=== PATIENT | female | born 1940 | race Caucasian/White ===

== ENCOUNTER 2017-10-15 14:49 | Emergency (ER) | payer MEDICARE, BC, SELFPAY ==
[2017-10-15 14:59] VITALS: BP 188/83; PULSE 81; RESP 16; TEMP 37; O2SAT 100; BMI 19.1
--- NOTE | 2017-10-15 15:17 | ED.WOUNDLAC ---
HPI - Wound/Laceration General Chief Complaint: Wound/Laceration Stated Complaint: fell, cut chin Time Seen by Provider: 10/15/17 15:04 Source: patient Mode of arrival: ambulatory Limitations: no limitations History of Present Illness HPI narrative: Patient is a 69-year-old female who presents with a chin laceration. She tripped and on her chin. No loss consciousness. She is on Coumadin for AFib. No other injuries. Onset (ago): minute(s) Location: face (Chin) Related Data Home Medications Medication Instructions Recorded Confirmed multivitamin 1 tab PO QDAY #0 06/26/12 10/15/17 cholecalciferol (vitamin D3) 2,000 u PO QDAY #0 06/19/16 10/15/17 [Vitamin D3] calcium citrate 2,000 mg PO QDAY #0 01/17/17 10/15/17 beclomethasone dipropionate [Qvar 1 puff INHALATION DIRECTED 10/15/17 10/15/17 RediHaler] warfarin [Coumadin] 0 dose PO SEE INSTRUCTIONS 10/15/17 10/15/17 Previous Rx's Medication Instructions Recorded metoprolol tartrate 25 mg tablet 12.5 mg PO BID #30 tab 09/23/17 Allergies Allergy/AdvReac Type Severity Reaction Status Date / Time No Known Allergies Allergy Uncoded 09/18/17 10:12 Review of Systems Review of Systems GENERAL: Denies chills,fever HEENT: Denies throat pain RESPIRATORY: Denies dyspnea, cough, wheezing CARDIOVASCULAR: Denies chest pain, palpitations GASTROINTESTINAL: Denies nausea, vomiting MUSCULOSKELETAL: Denies extremity pain, injury SKIN: see HPI NEUROLOGIC: Denies weakness, dizziness, headache, numbness 8 point review of systems is negative except for those stated above and HPI PFSH Medical History Hypertension (Chronic) Osteoarthritis (Chronic) Osteoporosis (Chronic 2015) Atrial fibrillation (Resolved 2013) Lung cancer (Resolved 2006) Ovarian cancer (Resolved 1994) Uterine cancer (Resolved 1994) Surgical History Anesthesia (Resolved) History of breast augmentation (Resolved 1992) History of hip replacement (Resolved 01/2013) History of oophorectomy (Resolved 1994) History of pneumonectomy (Resolved 05/2007) Status post hysterectomy (Resolved 1994) History of bilateral salpingo-oophorectomy (BSO) Family History Father Hypertension Prostate cancer, Onset Age: 70 Grandfather Stroke Grandmother Diabetes mellitus Mother Diabetes mellitus, type II Hypertension Stroke Grandfather No problems noted. Grandmother No problems noted. Social History Smoking Status: Never smoker alcohol intake: never substance use type: does not use Exam Initial Vital Signs Initial Vital Signs: Vital Signs Temperature 98.6 F 10/15/17 14:59 Pulse Rate 81 10/15/17 14:59 Respiratory Rate 16 10/15/17 14:59 Blood Pressure 188/83 H 10/15/17 14:59 Pulse Oximetry 100 10/15/17 14:59 GENERAL: Well-appearing, well-nourished and in no acute distress. CARDIOVASCULAR: peripheral pulses in tact, cap refill <2 sec RESPIRATORY: No respiratory distress, speaks in full sentences without difficulty EXTREMITIES: Normal range of motion, no clubbing or edema. Neurovascularly intact NEUROLOGICAL: Cranial nerves II through XII grossly intact. Normal gait and speech. SKIN: 2 cm chin laceration good skin approximation Procedures Laceration Repair Laceration 1: Site: face Size (cm): 2 Description: linear Depth: simple, single layer Local Anesthetic: lidocaine 1% and bupivacaine 0.5% Amount of anesthesia used (mL): 3 Pre-repair: wound explored, irrigated extensively and deep structures intact Skin layer closed with: nylon Size (cm): 5-0 Number of sutures: 3 Course Vital Signs - 8 hr 10/15/17 14:59 10/15/17 15:29 Temperature 98.6 F 98.1 F Pulse Rate 81 78 Respiratory Rate 16 13 Blood Pressure 188/83 H 170/90 H Pulse Oximetry 100 100 Discharge Plan Departure Patient Disposition: Home, Self-Care Clinical Impression: Laceration of chin Discharge Date/Time: 10/15/17 15:30 Interventions: ED Discharge Assessment Last Done: 10/15/17 15:29 Instructions: DI for Laceration Repair Activity Restrictions/Additional Instructions: 1. Have your suture removed in 5-7 days, you may go to walk-in clinic, return to the ER or call your primary care physician. 2. No soaking in water including dishes, bathtubs, Lakes, swimming pools etc 3. Signs of infection include, but not limited to, increased redness, increased swelling, increased pain, fever and purulent drainage, if the symptoms should arise, you may need an antibiotic and you should have a reevaluation either by your primary care provider or by the emergency department. Prescriptions: No Action multivitamin Tablet 1 tab PO QDAY Qty: 0 RF: 0 cholecalciferol (vitamin D3) [Vitamin D3] 1,000 UNIT tablet 2,000 u PO QDAY Qty: 0 RF: 0 calcium citrate 250 MG tablet 2,000 mg PO QDAY Qty: 0 RF: 0 metoprolol tartrate 25 mg tablet 12.5 mg PO BID Qty: 30 RF: 11 beclomethasone dipropionate [Qvar RediHaler] 40 mcg/actuation HFA aerosol breath activated 1 puff Inhalation DIRECTED RF: 0 warfarin [Coumadin] 2 MG tablet PO SEE INSTRUCTIONS RF: 0 Referrals: Zain iHnton MD [Primary Care Provider] -
[2017-10-15 15:29] VITALS: BP 170/90; PULSE 78; RESP 13; TEMP 36.7; O2SAT 100
== END 2017-10-15 15:30 | disposition home or self-care (01) ==
PROVIDERS: Emergency Provider Emergency Medicine; PCP Family Medicine
DX: S01.81XA Laceration without foreign body of other part of head, initial encounter (principal); W19.XXXA Unspecified fall, initial encounter
CPT/HCPCS: 12001; 12011; 99282; 99283

== ENCOUNTER → 2017-10-22 10:11 | Outpatient (CLI) | payer MEDICARE, BC, SELFPAY ==
--- NOTE | 2017-10-22 | DI.MG.S_ITS ---
BILATERAL DIGITAL SCREENING MAMMOGRAM 3D/2D WITH CAD: 10/22/2017 CLINICAL: Routine screening. Family history of breast cancer. Comparison is made to exams dated: 09/18/2016 mammogram, 08/15/2015 mammogram, and 07/06/2014 mammogram - [facility]. The tissue of both breasts is heterogeneously dense. This may lower the sensitivity of mammography. Current study was also evaluated with a Computer Aided Detection (CAD) system. There is a benign density in the right breast. No significant masses, calcifications, or other findings are seen in either breast. There has been no significant interval change. IMPRESSION: BENIGN There is no mammographic evidence of malignancy. A 1 year screening mammogram is recommended. This exam was interpreted at Station ID: [id number]. NOTE: For mammograms, a report in lay terms will be sent to the patient. Approximately 15% of breast malignancies will not be visualized mammographically. In the management of a palpable breast mass, a negative mammogram must not discourage biopsy of a clinically suspicious lesion. Electronically Signed By: Bry [email or web address]/[email or web address]:10/22/2017 16:23:28 letter sent: Normal Exam ACR BI-RADS Category 2: Benign Finding(s) 3342F
== END ==
PROVIDERS: PCP Family Medicine; Visit Provider Internal Medicine
DX: Z12.31 Encounter for screening mammogram for malignant neoplasm of breast (principal); Z80.3 Family history of malignant neoplasm of breast; M81.0 Age-related osteoporosis without current pathological fracture; Z78.0 Asymptomatic menopausal state; Z90.722 Acquired absence of ovaries, bilateral; Z82.62 Family history of osteoporosis; Z85.118 Personal history of other malignant neoplasm of bronchus and lung; Z87.891 Personal history of nicotine dependence
CPT/HCPCS: 77063; 77067; 77080

== ENCOUNTER → 2018-01-14 11:57 | Outpatient (CLI) | payer MEDICARE, BC, SELFPAY ==
[2018-01-14 12:40] LABS: Alanine Aminotransferase 29 IU/L (9-52); Albumin 3.9 g/dL (3.5-5.0); Albumin Globulin Ratio 1.4 (1.0-2.8); Alkaline Phosphatase 52 U/L (38-126); Aspartate Aminotransferase 42 IU/L (14-36); BUN Creatinine Ratio 34.3 (6-22); Bilirubin Total 0.5 mg/dL (0.2-1.3); Blood Urea Nitrogen 24 mg/dL (7-17); Calcium 8.9 mg/dL (8.4-10.2); Carbon Dioxide 32 mmol/L (22-32); Chloride 100 mmol/L (98-107); Estimated Glomerular Filt Rate > 60.0 mL/min (>60); Globulin 2.8 g/dL (1.7-4.1); Glucose 75 mg/dL (80-110); HEMOLYSIS 26 (0-50); Potassium 4.2 mmol/L (3.4-5.1); Sodium 141 mmol/L (137-145); Total Protein 6.7 g/dL (6.3-8.2)
== END ==
PROVIDERS: PCP Family Medicine; Visit Provider Registered Nurse
DX: R60.0 Localized edema (principal)
CPT/HCPCS: 36415; 80053; 83880

== ENCOUNTER 2018-01-16 14:25 | Oncology outpatient (ONC) | payer MEDICARE, BC, SELFPAY ==
[2018-01-16 15:04] VITALS: BP 119/71; PULSE 57; RESP 18; TEMP 36.1; O2SAT 99
--- NOTE | 2018-01-16 15:28 | P.PNONC_ITS ---
PN -Subjective Interval history: No headache, no cp, no sob, she is using Spiriva for her known COPD. But when walking uphill, she still feels like a challenge, No fever, no chills, no n/v, no diarrhea, and no bleeding. Her weight has been stable. Good appetite. Her mammogram from Oct 2017 was normal. 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 She has been in remission since with no evidence of disease progression. - Additional ROS All systems PM: reviewed and no additional remarkable complaints except as stated Home Medications and Allergies Home Medications Medication Instructions Recorded Confirmed Type multivitamin 1 tab PO QDAY #0 06/26/12 12/30/17 History cholecalciferol (vitamin D3) 2,000 u PO QDAY #0 06/19/16 12/30/17 History [Vitamin D3] calcium citrate 2,000 mg PO QDAY #0 01/17/17 12/30/17 History metoprolol tartrate 25 mg tablet 12.5 mg PO BID #30 tab 09/23/17 12/30/17 Rx alendronate 70 mg tablet 70 mg PO QWEEK #12 tab 10/31/17 12/30/17 Rx warfarin 2 mg tablet 2 mg PO DAILY tab 12/03/17 12/30/17 History warfarin 2 mg tablet 2 mg PO DAILY #30 tab 12/03/17 12/30/17 Rx tiotropium bromide 18 mcg capsule 1 cap INHALATION DAILY 12/30/17 12/30/17 History with inhalation device Allergies Allergy/AdvReac Type Severity Reaction Status Date / Time No Known Allergies Allergy Uncoded 12/30/17 09:11 Exam Vital signs: 3 Temp 96.9 F L 01/16/18 15:04 Pulse 57 L 01/16/18 15:04 Resp 18 01/16/18 15:04 BP 119/71 01/16/18 15:04 Pulse Ox 99 01/16/18 15:04 ECOG 1 - Constitutional positive no acute distress, positive thin, positive cooperative - Routine HEENT Exam Head: Present: normocephalic, atraumatic Eye: Present: EOMI, PERRL, normal accommodation. Absent: conjunctival icterus ENT: Present: mucous membranes moist - Routine Neck Exam Present: supple, full ROM, tracheal deviation. Absent: JVD, lymphadenopathy Comments: slightly to the right - Routine Respiratory Exam Present: Clear to auscultation bilaterally, decreased breath sounds. Absent: wheezes Comments: left lower lung with decreased breathing sound - Routine Cardiovascular Exam Present: RRR, S1, S2, irregular rhythm. Absent: murmur, gallop, rubs, S3 - Routine Abdominal Exam Present: soft, normoactive bowel sounds. Absent: tenderness, distended, organomegaly, mass, hernia - Routine Extremities Exam Present: full ROM. Absent: edema - Routine Back/Spine Exam Back/Spine: Present: full ROM - Routine Neurological Exam Present: alert, oriented X3, CN II-XII intact, moving all extremities, normal tone, normal speech. Absent: sensory deficit, motor deficit - Routine Psychiatric Exam Present: normal affect, normal thought process, cooperative, good insight, good judgment Results - Imaging Additional studies: Procedures Closure of skin and subcutaneous tissue of other sites (05/08/13) Colonoscopy (05/28/13) Injection or infusion of other therapeutic or prophylactic substance (11/09/13) Other endoscopy of small intestine (04/03/10) Total hip replacement (02/02/13) Venous catheterization, not elsewhere classified (03/05/12) Assessment and Plan (1) Endometrial adenocarcinoma Clinically I do not think there is any evidence of disease recurrence or metastasis. I will continue current active surveillance. I did instruct the patient to call us any time when she feels uncomfortable or there are any new signs or symptoms especially for example weight loss, cough or bleeding events. Patient voiced understanding. Plan Return to clinic in 6 months. Repeat CBC, CMP and LDH. (2) Healthcare maintenance Normal mammogram in October of 2017. Plan: Screening mammogram next due Oct 2018.
== END 2018-01-17 12:00 ==
LOC: ONC 14:28
PROVIDERS: PCP Family Medicine; Visit Provider Internal Medicine Hematology & Oncology
DX: Z08 Encounter for follow-up examination after completed treatment for malignant neoplasm (principal); Z85.118 Personal history of other malignant neoplasm of bronchus and lung; J44.9 Chronic obstructive pulmonary disease, unspecified
CPT/HCPCS: 99214

== ENCOUNTER 2018-06-24 10:08 | Emergency (ER) | payer MEDICARE, BC, SELFPAY ==
[2018-06-24 10:09] VITALS: BP 180/98; PULSE 75; RESP 22; TEMP 37.1; O2SAT 96; BMI 14.7
--- NOTE | 2018-06-24 10:26 | DI.US.S_ITS ---
PROCEDURE: US PERIPH VENOUS LOW EXTREM BI INDICATIONS: swelling legs, recent flight, sob TECHNIQUE: Real-time imaging, as well as color and pulse Doppler interrogation, were performed of the deep veins of both legs from the inguinal ligament to the popliteal fossa. COMPARISON: None. FINDINGS: Right: The common femoral, femoral and popliteal veins are normally compressible, and free of intraluminal thrombus. Color and pulse Doppler demonstrate normal phasic intravascular flow. There is normal augmentation response to distal compression maneuver. Left: The common femoral, femoral and popliteal veins are normally compressible, and free of intraluminal thrombus. Color and pulse Doppler demonstrate normal phasic intravascular flow. There is normal augmentation response to distal compression maneuver. What appears to be a Peter's cyst is present posterior to the right knee, measuring 1.0 x 2.4 x 6.3 cm. IMPRESSION: No DVT found over the lower extremities bilaterally. Note is made of what appears to be a right-sided Peter's cyst measuring 1.2 x 2.4 x 6.3 cm behind the right knee. Dictated by: Duncan Saba M.D. on 06/24/2018 at 11:20 Approved by: Duncan Saba M.D. on 06/24/2018 at 11:21
--- NOTE | 2018-06-24 10:27 | DI.RAD.S_ITS ---
PROCEDURE: XR CHEST 2V INDICATIONS: Short of breath, R lung removed for ca remote, cough TECHNIQUE: 2 views of the chest were acquired. COMPARISON: [facility], , CHEST 2 VIEW, 02/28/2015, 14:01. [facility], CHEST 2 VIEW, 06/19/2016, 10:22. [facility], , CHEST 2 VIEW, 11/26/2016, 13:18. FINDINGS: Surgical changes and devices: Right pneumonectomy changes are seen. Right axillary clips are seen. Lungs and pleura: Right pneumonectomy changes are seen. The left lung appears clear. Mediastinum: There is shift of the mediastinum to the right. Bones and chest wall: No suspicious bony abnormalities. S-shaped scoliotic curvature is seen. Age-appropriate bony degenerative changes are seen. Soft tissues appear unremarkable. IMPRESSION: Right pneumonectomy changes. The left lung appears clear. S-shaped scoliosis. Dictated by: Javed Person M.D. on 06/24/2018 at 9:47 Approved by: Javed Person M.D. on 06/24/2018 at 9:48
[2018-06-24 10:38] LABS: Add Manual Diff / Slide Review NO; Basophils Absolute Auto 0 /uL (0-100); Basophils Percent Auto 0.6 % (0-2); Eosinophils Absolute Auto 0 /uL (0-450); Eosinophils Percent Auto 0.8 % (2-4); Hematocrit 30.9 % (36-46); Hemoglobin 10.1 g/dL (12.0-16.0); Lymphocytes Absolute Auto 1100 /uL (1100-4500); Lymphocytes Percent Auto 23.9 % (25-40); Mean Corpuscular HGB Conc 32.6 % (30-36); Mean Corpuscular Hemoglobin 28.2 PG (26-34); Mean Corpuscular Volume 86.3 fL (80-100); Monocytes Absolute Auto 800 /uL (0-900); Monocytes Percent Auto 17.9 % (3-14); Neutrophils Absolute Auto 2700 /uL (1500-7000); Neutrophils Percent Auto 56.8 % (50-75); Platelet Count 253 X10^3/uL (150-400); Prothrombin Time 23.7 SECONDS (10.1-12.7); Red Blood Cell Count 3.58 X10^6/uL (4.0-5.2); Red Cell Distribution Width 15.4 % (11.6-14.8); White Blood Cell Count 4.7 X10^3/uL (4.5-11.0)
[2018-06-24 10:41] LABS: PTT Partial Thromboplastin Tim 42 SECONDS (26.4-36.2)
[2018-06-24 10:42] LABS: Creatine Kinase 72 U/L (30-135); Magnesium 1.9 mg/dL (1.6-2.3)
--- NOTE | 2018-06-24 10:42 | ED_ITS ---
HPI - SOB/Dyspnea General Chief Complaint: Shortness of Breath/Dyspnea Stated Complaint: sob, sent walk in clinic Time Seen by Provider: 06/24/18 10:08 Source: patient Mode of arrival: ambulatory Limitations: no limitations History of Present Illness This is a 77-year-old female comes to the emergency department with complaint of shortness of breath. Patient states shortness of breath started on Saturday. She states that she has had a little bit of cold congestion like symptoms in her chest. She felt like there is phlegm but she is not coughing anything out. She states that her shortness of breath is when she exerts herself or tries to walk up stairs. Patient denies any chest pain, pressure or tightness. She has not had any wheezing. She has not had any fevers. She has been sort of permanently cold but not really having chills. She states that she did fly back from [place] on and started really noticing symptoms on Saturday. She has also been very tired and thought it was just jet lag. She also noticed during her trip in that she had some bright red blood including some clots for a day and a half and then it stopped she has not noticed any more blood or black stool she has not been typically lightheaded but she was dizzy the last hour of her flight on returning. She has not had any syncope. She has had some swelling in her lower extremities but that has been improving since she landed. She has always got slightly left greater than right swelling in her lower extremities after she had a hip replacement. 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 She also has had a hysterectomy secondary to endometrial cancer many years ago. She did smoke for 20 years but has not been smoking for about 40. She denies any nausea, no vomiting no diarrhea or constipation. She denies any urinary symptoms. Related Data Home Medications Medication Instructions Recorded Confirmed cholecalciferol (vitamin D3) 2,000 units PO DAILY #0 06/19/16 06/24/18 [Vitamin D3] warfarin 2 mg tablet 2 mg PO SUMOWETHFRSA tab 12/03/17 06/24/18 alendronate [Fosamax] 70 mg PO MATA 06/24/18 06/24/18 calcium carbonate-vitamin D3 2 tab PO DAILY 06/24/18 06/24/18 [Calcium 600 + D(3)] multivitamin with minerals 1 tab PO DAILY 06/24/18 06/24/18 warfarin [Coumadin] 1 mg PO TU 06/24/18 06/24/18 Previous Rx's Medication Instructions Recorded metoprolol tartrate 25 mg tablet 12.5 mg PO BID #30 tab 09/23/17 tiotropium bromide 18 mcg capsule 1 cap INHALATION DAILY #30 06/05/18 with inhalation device inhalation Allergies Allergy/AdvReac Type Severity Reaction Status Date / Time No Known Drug Allergies Allergy Verified 06/24/18 11:22 Review of Systems Review of Systems ROS Unobtainable: All systems reviewed & are unremarkable except as noted in HPI and below Constitutional Denies chills, Reports fatigue, Denies fever(s), Denies lethargy and Denies weakness ENT Ears, Nose, Mouth, and Throat: Denies nasal congestion Cardiovascular Denies chest pain, Denies chest pain at rest, Denies chest pain with activity, Denies diaphoresis, Denies syncope, Denies rapid heart rate, Denies irregular heart rhythm, Reports leg edema (Bilateral), Reports lightheadedness (Resolved), Denies radiating jaw, neck or arm pain, Denies palpitations, Denies dyspnea, Reports dyspnea on exertion and Denies orthopnea Respiratory Denies change in phlegm color, Reports chest congestion, Reports cough, Denies hemoptysis, Denies excessive phlegm production, Denies pain on inspiration, Denies pain with cough, Denies dyspnea, Reports dyspnea on exertion and Denies wheezing Gastrointestinal Gastrointestinal: Denies abdominal pain, Denies melena, Reports hematochezia (For a day and a half while in [place].), Denies change in bowel habits, Denies constipation, Denies diarrhea, Denies nausea and Denies vomiting Genitourinary Denies hematuria, Denies urinary frequency, Denies dysuria, Denies flank pain and Denies urinary urgency Integumentary/Breasts Denies unusual bruising Neurologic Denies syncope and Denies weakness Endocrine Reports fatigue and Denies palpitations Allergic/Immunologic Denies wheezing [facility] Medical History Hypertension (Chronic) Osteoarthritis (Chronic) Osteoporosis (Chronic 2015) Atrial fibrillation (Resolved 2013) Lung cancer (Resolved 2006) Ovarian cancer (Resolved 1994) Uterine cancer (Resolved 1994) Surgical History Anesthesia (Resolved) History of breast augmentation (Resolved 1992) History of hip replacement (Resolved 01/2013) History of oophorectomy (Resolved 1994) History of pneumonectomy (Resolved 05/2007) Status post hysterectomy (Resolved 1994) History of bilateral salpingo-oophorectomy (BSO) Family History Father Hypertension Prostate cancer Grandfather Stroke Grandmother Diabetes mellitus Mother Diabetes mellitus, type II Hypertension Stroke Grandfather No problems noted. Grandmother No problems noted. Social History (Updated 10/15/17 @ 15:19 by Marilyn Amaro DO) marital status: unmarried,single household members: none lives independently: Yes pets and animals: Yes education level: college occupational status: other Smoking Status: Former smoker alcohol intake: never substance use type: does not use Family History Father Hypertension Prostate cancer Grandfather Stroke Grandmother Diabetes mellitus Mother Diabetes mellitus, type II Hypertension Stroke Grandfather No problems noted. Grandmother No problems noted. Social History (System 06/24/18 @ 11:22 by Gini Calix) marital status: unmarried,single household members: none lives independently: Yes pets and animals: Yes education level: college occupational status: other Smoking Status: Former smoker alcohol intake: never substance use type: does not use Exam Narrative Exam Narrative: GENERAL: Alert and oriented x three, thin, well-appearing elderly female in mild distress. HEENT: Head normocephalic, atraumatic, EOMI, pupils reactive, face symmetric, moist mucous membranes NECK: Supple, full range of motion CARDIOVASCULAR: Irregularly irregular without murmurs, rubs or gallops. No JVD. Trace edema bilateral lower extremities. left lower extremity is slightly increased circumference than the right. RESPIRATORY: Breath sounds present on left, no wheezes rales or rhonchi. No tachypnea, speaks in full sentences. ABDOMEN: Soft, nontender. nondistended. Normoactive bowel sounds all 4 quadrants. No guarding or rebound, rigidity, no mass. On digital rectal exam no large mass. There is no bright red blood, patient does have some thin liquidy brown stool, stool occult was negative : No CVA tenderness EXTREMITIES: Normal range of motion. Neurovascularly intact. normal gait. NEUROLOGICAL: Cranial nerves II through XII grossly intact. Moving all extremities SKIN: Warm, dry, no petechiae, no rashes or lesions. Initial Vital Signs Initial Vital Signs: Vital Signs Temperature 98.8 F 06/24/18 10:09 Pulse Rate 75 06/24/18 10:09 Respiratory Rate 22 06/24/18 10:09 Blood Pressure 180/98 H 06/24/18 10:09 Pulse Oximetry 96 06/24/18 10:09 Course Orders Ordered: ED Orders 06/24/18 10:11 EKG-12 Lead Routine 06/24/18 10:20 B Type Natriuretic Peptide Stat Complete Blood Count AUTO DIFF Stat Comprehensive Metabolic Panel Stat Magnesium Stat Partial Thromboplastin Time Stat Prothrombin Time INR Stat Troponin & CK Cardiac Panel Stat 06/24/18 10:26 Consult to Respiratory Therapy Evaluate & Treat US periph venous low extrem bi Stat 06/24/18 10:27 XR chest 2V Stat 06/24/18 10:45 Lactate (Lactic Acid) Stat Type and Screen Stat Discontinued Medications Albuterol/Ipratropium (Duoneb) 3 ml INH Q1H PRN PRN Reason: Shortness Of Breath Last Admin: 06/24/18 11:11 Dose: 3 ml Pantoprazole Sodium (Protonix) 40 mg IV NOW ONE Stop: 06/24/18 11:20 Vital Signs - 8 hr 06/24/18 10:09 06/24/18 11:17 06/24/18 11:26 Temperature 98.8 F Pulse Rate 75 96 H 78 Respiratory Rate 22 18 16 Blood Pressure 180/98 H Blood Pressure [Left Arm] 180/86 H Pulse Oximetry 96 97 98 06/24/18 12:07 Temperature Pulse Rate 76 Respiratory Rate 13 Blood Pressure 149/90 H Blood Pressure [Left Arm] Pulse Oximetry 98 MDM - SOB/Dyspnea Lab Data Attestation: I reviewed the patient's lab results. Result diagrams: 06/24/18 10:20 06/24/18 10:20 Lab Results 06/24/18 06/24/18 06/24/18 Range/Units 10:20 10:20 10:20 WBC 4.7 (4.5-11.0) X10^3/uL RBC 3.58 L (4.0-5.2) X10^6/uL Hgb 10.1 L (12.0-16.0) g/dL Hct 30.9 L (36-46) % MCV 86.3 (80-100) fL MCH 28.2 (26-34) PG MCHC 32.6 (30-36) % RDW 15.4 H (11.6-14.8) % Plt Count 253 (150-400) X10^3/uL Neut % (Auto) 56.8 (50-75) % Lymph % (Auto) 23.9 L (25-40) % [place] % (Auto) 17.9 H (3-14) % Eos % (Auto) 0.8 L (2-4) % Baso % (Auto) 0.6 (0-2) % Neut # (Auto) 2700 (7441-5497) /uL Lymph # (Auto) 1100 (8081-2768) /uL [place] # (Auto) 800 (0-900) /uL Eos # (Auto) 0 (0-450) /uL Baso # (Auto) 0 (0-100) /uL PT 23.7 H (10.1-12.7) SECONDS INR 2.0 H (0.9-1.3) APTT 42 H (26.4-36.2) SECONDS Sodium (137-145) mmol/L Potassium (3.4-5.1) mmol/L Chloride (98-107) mmol/L Carbon Dioxide (22-32) mmol/L BUN (7-17) mg/dL Creatinine (0.52-1.04) mg/dL Estimated GFR (>60) mL/min BUN/Creatinine Ratio (6-22) Glucose (80-110) mg/dL Lactate (0.7-2.1) mmol/L Calcium (8.4-10.2) mg/dL Magnesium 1.9 (1.6-2.3) mg/dL Total Bilirubin (0.2-1.3) mg/dL AST (14-36) IU/L ALT (9-52) IU/L Alkaline Phosphatase (38-126) U/L Total Creatine Kinase 72 (30-135) U/L CK-MB (CK-2) TNP CK-MB (CK-2) Rel Index TNP Troponin I < 0.012 (0.01-0.034) ng/mL B-Natriuretic Peptide 356 H (<100) Total Protein (6.3-8.2) g/dL Albumin (3.5-5.0) g/dL Globulin (1.7-4.1) g/dL Albumin/Globulin Ratio (1.0-2.8) Blood Type Antibody Screen 06/24/18 06/24/18 06/24/18 Range/Units 10:20 10:45 10:45 WBC (4.5-11.0) X10^3/uL RBC (4.0-5.2) X10^6/uL Hgb (12.0-16.0) g/dL Hct (36-46) % MCV (80-100) fL MCH (26-34) PG MCHC (30-36) % RDW (11.6-14.8) % Plt Count (150-400) X10^3/uL Neut % (Auto) (50-75) % Lymph % (Auto) (25-40) % Columbia % (Auto) (3-14) % Eos % (Auto) (2-4) % Baso % (Auto) (0-2) % Neut # (Auto) (3379-1806) /uL Lymph # (Auto) (2829-1525) /uL Columbia # (Auto) (0-900) /uL Eos # (Auto) (0-450) /uL Baso # (Auto) (0-100) /uL PT (10.1-12.7) SECONDS INR (0.9-1.3) APTT (26.4-36.2) SECONDS Sodium 136 L (137-145) mmol/L Potassium 3.9 (3.4-5.1) mmol/L Chloride 100 (98-107) mmol/L Carbon Dioxide 28 (22-32) mmol/L BUN 25 H (7-17) mg/dL Creatinine 0.70 (0.52-1.04) mg/dL Estimated GFR > 60.0 (>60) mL/min BUN/Creatinine Ratio 35.7 H (6-22) Glucose 94 (80-110) mg/dL Lactate 0.9 (0.7-2.1) mmol/L Calcium 9.5 (8.4-10.2) mg/dL Magnesium (1.6-2.3) mg/dL Total Bilirubin 0.3 (0.2-1.3) mg/dL AST 34 (14-36) IU/L ALT 37 (9-52) IU/L Alkaline Phosphatase 59 (38-126) U/L Total Creatine Kinase (30-135) U/L CK-MB (CK-2) CK-MB (CK-2) Rel Index Troponin I (0.01-0.034) ng/mL B-Natriuretic Peptide (<100) Total Protein 6.5 (6.3-8.2) g/dL Albumin 3.8 (3.5-5.0) g/dL Globulin 2.7 (1.7-4.1) g/dL Albumin/Globulin Ratio 1.4 (1.0-2.8) Blood Type A Negative Antibody Screen Negative Imaging Data Chest x-ray: Radiologist's impression: Cecille Toledo 77 F 1940 [place] [address] XRay Report Signed Patient: Cecille Toledo AMR#: [id number] : 1940Acct:[id number] Age/Sex: 77 / FDate of Service: 06/24/18 Loc: ED Accession Number: [id number] Procedure: XR chest 2V Ordering Provider: Jayla Fraser D.O. PROCEDURE: XR CHEST 2V INDICATIONS: Short of breath, R lung removed for ca remote, cough TECHNIQUE: 2 views of the chest were acquired. COMPARISON: [facility], CHEST 2 VIEW, 02/28/2015, 14:01. [facility], CHEST 2 VIEW, 06/19/2016, 10:22. [facility], CHEST 2 VIEW, 11/26/2016, 13:18. FINDINGS: Surgical changes and devices: Right pneumonectomy changes are seen. Right axillary clips are seen. Lungs and pleura: Right pneumonectomy changes are seen. The left lung appears clear. Mediastinum: There is shift of the mediastinum to the right. Bones and chest wall: No suspicious bony abnormalities. S-shaped scoliotic curvature is seen. Age-appropriate bony degenerative changes are seen. Soft tissues appear unremarkable. IMPRESSION: Right pneumonectomy changes. The left lung appears clear. S-shaped scoliosis. Dictated by: Javed Person M.D. on 06/24/2018 at 9:47 Approved by: Javed Person M.D. on 06/24/2018 at 9:4 ECG Data Attestation: I personally reviewed and interpreted this ECG as follows: Interpretation: AFib with a rate of 80 QRS of 98 and QTC of 418. No ST changes appreciated. left axis deviation. Patient has likely artifact in V3 as changes are not consistent throughout the single lead. Patient has prior EKG from 06/05/2018 on that 1 patient appears to be in a sinus tach nonspecific ST baig es when compared. MDM Narrative Medical decision making narrative: I discussed with patient she has multiple potential causes for her shortness of breath including possible anemia, pulmonary embolism, infection, COPD exacerbation or cardiac cause. Patient's EKG shows atrial fibrillation which is known. Dopplers are negative. Chest x-ray does not show any acute changes she has right pneumonectomy changes. Patient's hemoglobin is 10 today which is down from 12 in 2018. BNP is slightly elevated at 356, troponin is normal. Patient does not any crackles or changes on chest x-ray that support a congestive heart rate earlier, suspect possibly more related to symptomatic anemia. Patient chances of a pulmonary embolism her lower with an INR of 2.0 and negative Dopplers. I do not have CT capabilities available at this time and with potential for GI bleeding would not put her on blood thinners. Patient's primary care physician is Dr. Puckett. Spoke with Dr. Patricia. She is happy to repeat the patient's hemoglobin. Patient has slight dyspnea with exertion but otherwise is not having a lot of symptoms and she does not wish to be in the hospital. We did offer to keep patient is observation especially as I can do a CT scan to rule out pulmonary embolism. Her risk is a little bit lower but the fact that she is anticoagulated and negative Dopplers but she is higher risk secondary to her recent flight. Discussed risks versus benefits with the patient and she is comfortable at this time waiting and following up as outpatient. We did discuss she should return for any worsening symptoms as well as if she is having any recurrent GI bleeding. Discharge Plan Departure Patient Disposition: Home Clinical Impression: Dyspnea, Anemia Discharge Date/Time: 06/24/18 12:08 Interventions: ED Discharge Assessment Last Done: 06/24/18 12:07 Instructions: DI for Shortness of Breath Activity Restrictions/Additional Instructions: Follow-up on Saturday to get your CBC/blood count redrawn at the outpatient lab. Dr. Patricia is ordering your lab for you. Continue home medications as prescribed. Return to the emergency department for any new or worsening symptoms including increasing shortness of breath, passing out, chest pain or tightness or pressure, recurrent rectal bleeding, persistent vomiting, abdominal pain or other new or concerning symptoms. Prescriptions: No Action cholecalciferol (vitamin D3) [Vitamin D3] 1,000 UNIT tablet 2,000 units PO DAILY Qty: 0 RF: 0 metoprolol tartrate 25 mg tablet 12.5 mg PO BID Qty: 30 RF: 11 Spiriva with HandiHaler 18 mcg capsule, w/inhalation device 1 cap INHALATION DAILY Qty: 30 RF: 0 warfarin [Coumadin] 2 mg tablet 2 mg PO SUMOWETHFR RF: 0 warfarin [Coumadin] 2 mg tablet 1 mg PO TU RF: 0 calcium carbonate-vitamin D3 [Calcium 600 + D(3)] 600 mg(1,500mg) -200 unit Tablet 2 tab PO DAILY RF: 0 multivitamin with minerals Tablet 1 tab PO DAILY RF: 0 alendronate [Fosamax] 70 mg tablet 70 mg PO MATA RF: 0 Referrals: Rosio Puckett MD [Primary Care Provider] -
[2018-06-24 10:43] LABS: Alanine Aminotransferase 37 IU/L (9-52); Albumin 3.8 g/dL (3.5-5.0); Albumin Globulin Ratio 1.4 (1.0-2.8); Alkaline Phosphatase 59 U/L (38-126); Aspartate Aminotransferase 34 IU/L (14-36); BUN Creatinine Ratio 35.7 (6-22); Bilirubin Total 0.3 mg/dL (0.2-1.3); Blood Urea Nitrogen 25 mg/dL (7-17); Calcium 9.5 mg/dL (8.4-10.2); Carbon Dioxide 28 mmol/L (22-32); Chloride 100 mmol/L (98-107); Estimated Glomerular Filt Rate > 60.0 mL/min (>60); Globulin 2.7 g/dL (1.7-4.1); Glucose 94 mg/dL (80-110); HEMOLYSIS < 15 (0-50); Potassium 3.9 mmol/L (3.4-5.1); Sodium 136 mmol/L (137-145); Total Protein 6.5 g/dL (6.3-8.2)
[2018-06-24 10:54] LABS: B Type Natriuretic Peptide 356 (<100)
[2018-06-24 10:55] LABS: Troponin I < 0.012 ng/mL (0.01-0.034)
[2018-06-24 11:11] LABS: Lactate (Lactic Acid) 0.9 mmol/L (0.7-2.1)
[2018-06-24] MEDS: ALBUTEROL/IPRATROPIUM 3 ML AMPUL INH (11:11)
[2018-06-24 11:17] VITALS: PULSE 96; RESP 18; O2SAT 97
[2018-06-24 11:26] VITALS: BP 180/86; PULSE 78; RESP 16; O2SAT 98
[2018-06-24 12:07] VITALS: BP 149/90; PULSE 76; RESP 13; O2SAT 98
== END 2018-06-24 12:08 | disposition home or self-care (01) ==
PROVIDERS: Emergency Provider Emergency Medicine; PCP Family Medicine
DX: R06.00 Dyspnea, unspecified (principal); D64.9 Anemia, unspecified; M79.89 Other specified soft tissue disorders; R42 Dizziness and giddiness; R53.83 Other fatigue
CPT/HCPCS: 36415; 36591; 71046; 80053; 82550; 83605; 83735; 83880; 84484; 85025; 85610; 85730; 86850; 86900; 86901; 93005; 93041; 93970; 94640; 99283; 99285

== ENCOUNTER 2018-06-25 16:14 | Inpatient (IN) | payer MEDICARE, BC, SELFPAY ==
[2018-06-25] VITALS (19 sets, daily range): BP systolic 118–180; BP diastolic 65–96; PULSE 83–188; RESP 17–28; TEMP 36.1–37.6; O2SAT 93–100; BMI 19.1
--- NOTE | 2018-06-25 16:34 | ED.SOB ---
HPI - SOB/Dyspnea General Chief Complaint: Shortness of Breath/Dyspnea Stated Complaint: SHORTNESS OF BREATH Time Seen by Provider: 06/25/18 16:30 Source: patient Mode of arrival: ambulatory Limitations: no limitations History of Present Illness Patient is a 69-year-old female who presents with increasing shortness of breath worse today. She has a history of right pneumonectomy COPD and paroxysmal atrial fibrillation. She was seen evaluated here yesterday and had a thorough workup, minus CT for PE which was unavailable. She has had increasing dyspnea with exertion for the last 5 days. Today her chest pain is significantly worsened she is having difficulty talking. Denies fever or chills. She does have bilateral lower extremity swelling on but states the left is always more than the right versus left. They appear Equal to me. No productive cough or fevers. Patient apparently did have some rectal bleeding while on vacation. MD Complaint: shortness of breath Onset (ago): day(s) (5) Context: recent illness, occurred during exertion and recent travel Consistency/Duration: constant Relieving factors: nothing Exacerbating factors: movement and talking Known history of: COPD Related Data Home oxygen amount: none Home Medications Medication Instructions Recorded Confirmed cholecalciferol (vitamin D3) 2,000 units PO DAILY #0 06/19/16 06/25/18 [Vitamin D3] warfarin 2 mg tablet 2 mg PO SUMOWETHFRSA tab 12/03/17 06/25/18 alendronate [Fosamax] 70 mg PO MATA 06/24/18 06/25/18 calcium carbonate-vitamin D3 2 tab PO DAILY 06/24/18 06/25/18 [Calcium 600 + D(3)] multivitamin with minerals 1 tab PO DAILY 06/24/18 06/25/18 warfarin [Coumadin] 1 mg PO TU 06/24/18 06/25/18 Previous Rx's Medication Instructions Recorded metoprolol tartrate 25 mg tablet 12.5 mg PO BID #30 tab 09/23/17 tiotropium bromide 18 mcg capsule 1 cap INHALATION DAILY #30 06/05/18 with inhalation device inhalation Allergies Allergy/AdvReac Type Severity Reaction Status Date / Time No Known Drug Allergies Allergy Verified 06/24/18 11:22 Review of Systems Review of Systems ROS Unobtainable: All systems reviewed & are unremarkable except as noted in HPI and below Constitutional Denies chills, Denies fever(s), Denies lethargy and Denies weakness ENT Ears, Nose, Mouth, and Throat: Denies change in voice, Denies neck pain and Denies sore throat Cardiovascular Denies chest pain, Reports pedal edema, Denies irregular heart rhythm, Denies lightheadedness, Denies palpitations, Reports dyspnea on exertion and Denies orthopnea Respiratory Reports as per HPI, Reports chest congestion and Reports dyspnea on exertion Gastrointestinal Gastrointestinal: Reports as per HPI Comments: Bloody diarrhea now resolved Genitourinary Denies hematuria, Denies flank pain, Denies urinary incontinence and Denies urinary urgency Musculoskeletal Denies neck pain Integumentary/Breasts Denies pruritus, Denies erythema, Denies rash and Denies wounds Neurologic Denies confusion and Denies weakness Psychiatric Denies anxiety, Denies confusion, Denies depression, Denies homicidal ideation and Denies suicidal ideation Endocrine Denies palpitations [facility] Medical History Hypertension (Chronic) Osteoarthritis (Chronic) Osteoporosis (Chronic 2015) Atrial fibrillation (Resolved 2013) Lung cancer (Resolved 2006) Ovarian cancer (Resolved 1994) Uterine cancer (Resolved 1994) Surgical History Anesthesia (Resolved) History of breast augmentation (Resolved 1992) History of hip replacement (Resolved 01/2013) History of oophorectomy (Resolved 1994) History of pneumonectomy (Resolved 05/2007) Status post hysterectomy (Resolved 1994) History of bilateral salpingo-oophorectomy (BSO) Family History (System 06/24/18 @ 11:22 by Gini Calix) Father Hypertension Prostate cancer Grandfather Stroke Grandmother Diabetes mellitus Mother Diabetes mellitus, type II Hypertension Stroke Grandfather No problems noted. Grandmother No problems noted. Social History (System 06/24/18 @ 11:22 by Gini Calix) marital status: unmarried,single household members: none lives independently: Yes pets and animals: Yes education level: college occupational status: other Smoking Status: Former smoker alcohol intake: never substance use type: does not use Family History Father Hypertension Prostate cancer Grandfather Stroke Grandmother Diabetes mellitus Mother Diabetes mellitus, type II Hypertension Stroke Grandfather No problems noted. Grandmother No problems noted. Social History marital status: unmarried,single household members: none lives independently: Yes pets and animals: Yes education level: college occupational status: other Smoking Status: Former smoker alcohol intake: never substance use type: does not use Exam Initial Vital Signs Initial Vital Signs: Vital Signs Temperature 97.0 F L 06/25/18 16:15 Pulse Rate 98 H 06/25/18 16:15 Respiratory Rate 26 H 06/25/18 16:15 Blood Pressure 152/68 H 06/25/18 16:15 Pulse Oximetry 98 06/25/18 16:15 GENERAL: Frail alert pleasant elderly female in moderate respiratory distress HEENT: Head atraumatic,EOMI, pupils reactive, no JVD CARDIOVASCULAR: Regular rate and rhythm without murmurs, rubs or gallops. RESPIRATORY: Coarse breath sounds throughout decreased on the right side, unable to speak in full sentences ABDOMEN: Soft, nontender. Normoactive bowel sounds all 4 quadrants. No guarding or rebound. EXTREMITIES: Normal range of motion, no clubbing or edema. Neurovascularly intact NEUROLOGICAL: Alert and oriented x4.Normal gait and speech. SKIN: Warm, dry, no laceration, no petechiae, no rashes or lesions. Course Orders Ordered: ED Orders 06/25/18 16:21 Consult to Respiratory Therapy Evaluate & Treat 06/25/18 16:38 Consult to Respiratory Therapy Evaluate & Treat XR chest 1V Stat EKG-12 Lead Stat 06/25/18 16:45 B Type Natriuretic Peptide Stat Complete Blood Count AUTO DIFF Stat Comprehensive Metabolic Panel Stat Magnesium Stat Procalcitonin Stat Troponin & CK Cardiac Panel Stat 06/25/18 16:48 Prothrombin Time INR Stat 06/25/18 17:15 Lactate (Lactic Acid) Stat 06/25/18 17:20 Arterial Blood Gas Stat 06/25/18 17:27 EKG-12 Lead Stat 06/25/18 17:40 Blood Culture Stat 06/25/18 17:45 Urinalysis and Microscopic Stat Urine Culture Stat Albuterol (Ventolin) 2.5 mg INH NOW PRN PRN Reason: Shortness Of Breath Or Wheezing Last Admin: 06/25/18 16:37 Dose: 2.5 mg Admin: 06/25/18 16:36 Dose: 2.5 mg Discontinued Medications Adenosine (Adenocard) 6 mg IV NOW ONE Stop: 06/25/18 17:28 Last Admin: 06/25/18 17:07 Dose: 6 mg Adenosine (Adenocard) 12 mg IV NOW ONE Stop: 06/25/18 17:29 Last Admin: 06/25/18 17:09 Dose: 12 mg Albuterol/Ipratropium (Duoneb) 3 ml INH NOW ONE Stop: 06/25/18 16:35 Last Admin: 06/25/18 16:36 Dose: 3 ml Albuterol/Ipratropium (Duoneb) 3 ml INH NOW ONE Stop: 06/25/18 16:38 Last Admin: 06/25/18 19:33 Dose: Not Given Furosemide (Lasix) 40 mg IV NOW ONE Stop: 06/25/18 17:28 Last Admin: 06/25/18 17:17 Dose: 40 mg Ceftriaxone Sodium/Dextrose (Rocephin) 1 gm in 50 mls @ 100 mls/hr IV NOW ONE Stop: 06/25/18 18:46 Last Infusion: 06/25/18 19:12 Dose: 0 mls/hr Admin: 06/25/18 18:36 Dose: 100 mls/hr Methylprednisolone (Solu-Medrol 125 Mg Vial) 80 mg IV NOW ONE Stop: 06/25/18 18:48 Last Admin: 06/25/18 19:15 Dose: 80 mg Metoprolol Tartrate (Lopressor) 5 mg IV NOW ONE Stop: 06/25/18 17:28 Last Admin: 06/25/18 17:15 Dose: 5 mg Metoprolol Tartrate (Lopressor) 25 mg PO NOW ONE Stop: 06/25/18 18:19 Last Admin: 06/25/18 18:36 Dose: 25 mg Vital Signs - 8 hr 06/25/18 16:15 06/25/18 16:32 06/25/18 16:37 Temperature 97.0 F L Pulse Rate 98 H 90 98 H Respiratory Rate 26 H Blood Pressure 152/68 H Blood Pressure [Right Arm] 180/96 H Pulse Oximetry 98 100 96 06/25/18 16:39 06/25/18 17:00 06/25/18 17:05 Temperature Pulse Rate 98 H 188 H 181 H Respiratory Rate 28 H 27 H Blood Pressure Blood Pressure [Right Arm] 141/81 H 153/82 H Pulse Oximetry 96 06/25/18 17:10 06/25/18 17:15 06/25/18 17:20 Temperature Pulse Rate 129 H 108 H 104 H Respiratory Rate 28 H 23 24 Blood Pressure Blood Pressure [Right Arm] 135/80 143/87 H 139/82 Pulse Oximetry 06/25/18 17:25 06/25/18 17:30 06/25/18 17:35 Temperature Pulse Rate 107 H 110 H 112 H Respiratory Rate 25 H 22 25 H Blood Pressure Blood Pressure [Right Arm] 125/80 145/67 H Pulse Oximetry 98 98 06/25/18 17:40 06/25/18 17:50 06/25/18 18:00 Temperature Pulse Rate 111 H 106 H 121 H Respiratory Rate 22 17 27 H Blood Pressure Blood Pressure [Right Arm] 125/80 120/71 121/65 Pulse Oximetry 97 96 96 06/25/18 19:00 06/25/18 19:30 Temperature Pulse Rate 104 H 100 H Respiratory Rate 24 23 Blood Pressure Blood Pressure [Right Arm] 126/71 118/71 Pulse Oximetry MDM - SOB/Dyspnea Lab Data Attestation: I reviewed the patient's lab results. Result diagrams: 06/25/18 16:45 06/25/18 16:45 Lab Results 06/25/18 06/25/18 06/25/18 Range/Units 16:45 16:45 16:45 WBC 5.6 (4.5-11.0) X10^3/uL RBC 3.73 L (4.0-5.2) X10^6/uL Hgb 10.4 L (12.0-16.0) g/dL Hct 32.4 L (36-46) % MCV 86.9 (80-100) fL MCH 27.8 (26-34) PG MCHC 32.0 (30-36) % RDW 15.2 H (11.6-14.8) % Plt Count 261 (150-400) X10^3/uL Neut % (Auto) 51.7 (50-75) % Lymph % (Auto) 33.0 (25-40) % Nelson % (Auto) 12.4 (3-14) % Eos % (Auto) 2.3 (2-4) % Baso % (Auto) 0.6 (0-2) % Neut # (Auto) 2900 (9617-8234) /uL Lymph # (Auto) 1800 (8162-5322) /uL Nelson # (Auto) 700 (0-900) /uL Eos # (Auto) 100 (0-450) /uL Baso # (Auto) 0 (0-100) /uL PT (10.1-12.7) SECONDS INR (0.9-1.3) ABG pH (7.35-7.45) ABG pCO2 (35-45) mmHg ABG pO2 (80-100) mmHg ABG HCO3 (22-26) mmol/L ABG Total CO2 (21-31) mmol/L ABG O2 Saturation (95-100) % ABG Base Excess (-2-2) mmol/L FiO2 Sodium 136 L (137-145) mmol/L Potassium 3.7 (3.4-5.1) mmol/L Chloride 99 (98-107) mmol/L Carbon Dioxide 30 (22-32) mmol/L BUN 21 H (7-17) mg/dL Creatinine 0.90 (0.52-1.04) mg/dL Estimated GFR > 60.0 (>60) mL/min BUN/Creatinine Ratio 23.3 H (6-22) Glucose 112 H (80-110) mg/dL Lactate (0.7-2.1) mmol/L Calcium 9.2 (8.4-10.2) mg/dL Magnesium 1.9 (1.6-2.3) mg/dL Total Bilirubin 0.6 (0.2-1.3) mg/dL AST 32 (14-36) IU/L ALT 28 (9-52) IU/L Alkaline Phosphatase 60 (38-126) U/L Total Creatine Kinase 103 (30-135) U/L CK-MB (CK-2) 1.78 (<2.37) ng/mL CK-MB (CK-2) Rel Index 1.7 (1.5-5.0) % Troponin I < 0.012 (0.01-0.034) ng/mL B-Natriuretic Peptide 274 H (<100) Total Protein 6.9 (6.3-8.2) g/dL Albumin 4.0 (3.5-5.0) g/dL Globulin 2.9 (1.7-4.1) g/dL Albumin/Globulin Ratio 1.4 (1.0-2.8) Procalcitonin < 0.05 (<0.5) ng/mL Urine Color Urine Appearance Urine pH (4.5-8.0) Ur Specific [place] (1.000-1.035) Urine Protein (Negative) Urine Glucose (UA) (Negative) g/dL Urine Ketones (NEGATIVE) Urine Occult Blood (Negative) Urine Nitrate (Negative) Urine Bilirubin (NEGATIVE) Urine Urobilinogen (0.2) E.U./dL Ur Leukocyte Esterase (NEGATIVE) Urine RBC (0-5/HPF) Urine WBC (0-5/HPF) Ur Squamous Epith Cells (0-5/HPF) Urine Bacteria (None) Ur Culture Indicated? 06/25/18 06/25/18 06/25/18 Range/Units 16:48 17:15 17:20 WBC (4.5-11.0) X10^3/uL RBC (4.0-5.2) X10^6/uL Hgb (12.0-16.0) g/dL Hct (36-46) % MCV (80-100) fL MCH (26-34) PG MCHC (30-36) % RDW (11.6-14.8) % Plt Count (150-400) X10^3/uL Neut % (Auto) (50-75) % Lymph % (Auto) (25-40) % Nelson % (Auto) (3-14) % Eos % (Auto) (2-4) % Baso % (Auto) (0-2) % Neut # (Auto) (0552-7511) /uL Lymph # (Auto) (6946-5196) /uL Nelson # (Auto) (0-900) /uL Eos # (Auto) (0-450) /uL Baso # (Auto) (0-100) /uL PT 23.5 H (10.1-12.7) SECONDS INR 2.0 H (0.9-1.3) ABG pH 7.43 (7.35-7.45) ABG pCO2 41.3 (35-45) mmHg ABG pO2 87 (80-100) mmHg ABG HCO3 28 H (22-26) mmol/L ABG Total CO2 29 (21-31) mmol/L ABG O2 Saturation 97 (95-100) % ABG Base Excess 3.0 H (-2-2) mmol/L FiO2 32 Sodium (137-145) mmol/L Potassium (3.4-5.1) mmol/L Chloride (98-107) mmol/L Carbon Dioxide (22-32) mmol/L BUN (7-17) mg/dL Creatinine (0.52-1.04) mg/dL Estimated GFR (>60) mL/min BUN/Creatinine Ratio (6-22) Glucose (80-110) mg/dL Lactate 1.8 (0.7-2.1) mmol/L Calcium (8.4-10.2) mg/dL Magnesium (1.6-2.3) mg/dL Total Bilirubin (0.2-1.3) mg/dL AST (14-36) IU/L ALT (9-52) IU/L Alkaline Phosphatase (38-126) U/L Total Creatine Kinase (30-135) U/L CK-MB (CK-2) (<2.37) ng/mL CK-MB (CK-2) Rel Index (1.5-5.0) % Troponin I (0.01-0.034) ng/mL B-Natriuretic Peptide (<100) Total Protein (6.3-8.2) g/dL Albumin (3.5-5.0) g/dL Globulin (1.7-4.1) g/dL Albumin/Globulin Ratio (1.0-2.8) Procalcitonin (<0.5) ng/mL Urine Color Urine Appearance Urine pH (4.5-8.0) Ur Specific [place] (1.000-1.035) Urine Protein (Negative) Urine Glucose (UA) (Negative) g/dL Urine Ketones (NEGATIVE) Urine Occult Blood (Negative) Urine Nitrate (Negative) Urine Bilirubin (NEGATIVE) Urine Urobilinogen (0.2) E.U./dL Ur Leukocyte Esterase (NEGATIVE) Urine RBC (0-5/HPF) Urine WBC (0-5/HPF) Ur Squamous Epith Cells (0-5/HPF) Urine Bacteria (None) Ur Culture Indicated? 06/25/18 Range/Units 17:45 WBC (4.5-11.0) X10^3/uL RBC (4.0-5.2) X10^6/uL Hgb (12.0-16.0) g/dL Hct (36-46) % MCV (80-100) fL MCH (26-34) PG MCHC (30-36) % RDW (11.6-14.8) % Plt Count (150-400) X10^3/uL Neut % (Auto) (50-75) % Lymph % (Auto) (25-40) % Nelson % (Auto) (3-14) % Eos % (Auto) (2-4) % Baso % (Auto) (0-2) % Neut # (Auto) (8873-7119) /uL Lymph # (Auto) (0727-8790) /uL Nelson # (Auto) (0-900) /uL Eos # (Auto) (0-450) /uL Baso # (Auto) (0-100) /uL PT (10.1-12.7) SECONDS INR (0.9-1.3) ABG pH (7.35-7.45) ABG pCO2 (35-45) mmHg ABG pO2 (80-100) mmHg ABG HCO3 (22-26) mmol/L ABG Total CO2 (21-31) mmol/L ABG O2 Saturation (95-100) % ABG Base Excess (-2-2) mmol/L FiO2 Sodium (137-145) mmol/L Potassium (3.4-5.1) mmol/L Chloride (98-107) mmol/L Carbon Dioxide (22-32) mmol/L BUN (7-17) mg/dL Creatinine (0.52-1.04) mg/dL Estimated GFR (>60) mL/min BUN/Creatinine Ratio (6-22) Glucose (80-110) mg/dL Lactate (0.7-2.1) mmol/L Calcium (8.4-10.2) mg/dL Magnesium (1.6-2.3) mg/dL Total Bilirubin (0.2-1.3) mg/dL AST (14-36) IU/L ALT (9-52) IU/L Alkaline Phosphatase (38-126) U/L Total Creatine Kinase (30-135) U/L CK-MB (CK-2) (<2.37) ng/mL CK-MB (CK-2) Rel Index (1.5-5.0) % Troponin I (0.01-0.034) ng/mL B-Natriuretic Peptide (<100) Total Protein (6.3-8.2) g/dL Albumin (3.5-5.0) g/dL Globulin (1.7-4.1) g/dL Albumin/Globulin Ratio (1.0-2.8) Procalcitonin (<0.5) ng/mL Urine Color Yellow Urine Appearance Clear Urine pH 7.5 (4.5-8.0) Ur Specific [place] 1.010 (1.000-1.035) Urine Protein Negative (Negative) Urine Glucose (UA) Negative (Negative) g/dL Urine Ketones Negative (NEGATIVE) Urine Occult Blood Negative (Negative) Urine Nitrate Positive H (Negative) Urine Bilirubin Negative (NEGATIVE) Urine Urobilinogen 0.2 (0.2) E.U./dL Ur Leukocyte Esterase Trace H (NEGATIVE) Urine RBC None seen (0-5/HPF) Urine WBC 5-10/hpf H (0-5/HPF) Ur Squamous Epith Cells None seen (0-5/HPF) Urine Bacteria Many (>30) H (None) Ur Culture Indicated? Specimen cultured Imaging Data Chest x-ray: Radiologist's impression: PROCEDURE: XR CHEST 1V INDICATIONS: short of breath TECHNIQUE: One view of the chest was acquired. COMPARISON: [facility], XR CHEST 2V, 06/24/2018, 10:36. [facility], CHEST 2 VIEW, 11/26/2016, 13:18. FINDINGS: Surgical changes and devices: Postoperative changes of pneumonectomy on the right.. Lungs and pleura: Lungs are clear. No pleural effusions or pneumothorax. Mediastinum: Mediastinal contours appear normal. Heart size is normal. Bones and chest wall: No suspicious bony lesions. Overlying soft tissues appear unremarkable. IMPRESSION: Prior pneumonectomy, no change in distortion of the mediastinal contours as a result. No source of shortness of breath is not found. Dictated by: Duncan Saba M.D. on 06/25/2018 at 17:08 ECG Data Attestation: I personally reviewed and interpreted this ECG as follows: Prior ECG tracings: available for review Interpretation: EKG 1. Is 4:52 p.m. atrial fibrillation rate [address] changes some mild artifact noted similar to previous EKG EKG 2. AFib with RVR possible SVT MDM Narrative Medical decision making narrative: Patient received albuterol multiple treatments to help her with breathing. Heart rate suddenly increased to 190-200 she was given 6 mg of adenosine did not last long enough to see underlying rhythm. quickly increased back up until like 188. Patient was given 12 mg of adenosine she did decrease underlying rhythm appeared to be in AFib. She was given metoprolol due to what I suspect may be pH after COPD. Patient does have bilateral lower extremity swelling. She actually sound wet and course. She was also given a dose of Lasix BNP is actually lower than what it was yesterday. However she has not yet had an echo cardiogram. Heart rate is much improved after metoprolol anywhere from 100-115. She is given her nightly dose of metoprolol as well. at this time patient needs to be admitted AFib with RVR, COPD possible new onset CHF. On her AFib with RVR she needs to go to ICU. updated on patient's symptoms test results and accepts patient Critical Care Time Critical Care Time: Yes Total Critical Care Time: 45 Attestation: The high probability of a clinically significant, sudden or life threatening deterioration of the cardiovascular system(s) required my full and direct attention, intervention and personal management. The aggregate critical care time was 45 minutes. This time is in addition to time spent performing reported procedures but includes the following: x Data Review and interpretation x Patient assessment and monitoring of vital signs x Documentation x Medication orders and management Discharge Plan Departure Patient Disposition: Admitted As Inpatient Clinical Impression: COPD (chronic obstructive pulmonary disease), CHF (congestive heart failure), Atrial fibrillation with RVR, Acute UTI Discharge Date/Time: 06/25/18 19:46 Interventions: ED Discharge Assessment Last Done: 06/25/18 19:46 Admit Date/Time: 06/25/18 19:35 Admit Provider: Dustin Parsons
[2018-06-25] MEDS: ALBUTEROL/IPRATROPIUM 3 ML AMPUL INH (16:36)
[2018-06-25] MEDS: ALBUTEROL 2.5 MG/3 ML NEB (ADULT) INH ×2 (16:36→16:37)
--- NOTE | 2018-06-25 16:38 | DI.RAD.S_ITS ---
PROCEDURE: XR CHEST 1V INDICATIONS: short of breath TECHNIQUE: One view of the chest was acquired. COMPARISON: [facility], [facility], XR CHEST 2V, 06/24/2018, 10:36. [facility], , CHEST 2 VIEW, 11/26/2016, 13:18. FINDINGS: Surgical changes and devices: Postoperative changes of pneumonectomy on the right.. Lungs and pleura: Lungs are clear. No pleural effusions or pneumothorax. Mediastinum: Mediastinal contours appear normal. Heart size is normal. Bones and chest wall: No suspicious bony lesions. Overlying soft tissues appear unremarkable. IMPRESSION: Prior pneumonectomy, no change in distortion of the mediastinal contours as a result. No source of shortness of breath is not found. Dictated by: Duncan Saba M.D. on 06/25/2018 at 17:08 Approved by: Duncan Saba M.D. on 06/25/2018 at 17:08
[2018-06-25 17:01] LABS: Add Manual Diff / Slide Review NO; Basophils Absolute Auto 0 /uL (0-100); Basophils Percent Auto 0.6 % (0-2); Eosinophils Absolute Auto 100 /uL (0-450); Eosinophils Percent Auto 2.3 % (2-4); Hematocrit 32.4 % (36-46); Hemoglobin 10.4 g/dL (12.0-16.0); Lymphocytes Absolute Auto 1800 /uL (1100-4500); Mean Corpuscular Hemoglobin 27.8 PG (26-34); Mean Corpuscular Volume 86.9 fL (80-100); Monocytes Absolute Auto 700 /uL (0-900); Monocytes Percent Auto 12.4 % (3-14); Neutrophils Absolute Auto 2900 /uL (1500-7000); Neutrophils Percent Auto 51.7 % (50-75); Platelet Count 261 X10^3/uL (150-400); Red Blood Cell Count 3.73 X10^6/uL (4.0-5.2); Red Cell Distribution Width 15.2 % (11.6-14.8); White Blood Cell Count 5.6 X10^3/uL (4.5-11.0)
[2018-06-25] MEDS: ADENOSINE 6 MG/2 ML VIAL IV (17:07)
[2018-06-25] MEDS: ADENOSINE 12 MG/4 ML SYRINGE IV (17:09)
[2018-06-25 17:13] LABS: Alanine Aminotransferase 28 IU/L (9-52); Albumin Globulin Ratio 1.4 (1.0-2.8); Alkaline Phosphatase 60 U/L (38-126); Aspartate Aminotransferase 32 IU/L (14-36); BUN Creatinine Ratio 23.3 (6-22); Bilirubin Total 0.6 mg/dL (0.2-1.3); Blood Urea Nitrogen 21 mg/dL (7-17); Calcium 9.2 mg/dL (8.4-10.2); Carbon Dioxide 30 mmol/L (22-32); Chloride 99 mmol/L (98-107); Creatine Kinase 103 U/L (30-135); Estimated Glomerular Filt Rate > 60.0 mL/min (>60); Globulin 2.9 g/dL (1.7-4.1); Glucose 112 mg/dL (80-110); HEMOLYSIS < 15 (0-50); Magnesium 1.9 mg/dL (1.6-2.3); Potassium 3.7 mmol/L (3.4-5.1); Sodium 136 mmol/L (137-145); Total Protein 6.9 g/dL (6.3-8.2)
[2018-06-25] MEDS: METOPROLOL TARTRATE 5 MG/5 ML INJ IV (17:15)
[2018-06-25] MEDS: FUROSEMIDE 40 MG/4 ML VIAL IV (17:17)
[2018-06-25 17:22] LABS: B Type Natriuretic Peptide 274 (<100)
[2018-06-25 17:25] LABS: Troponin I < 0.012 ng/mL (0.01-0.034)
[2018-06-25 17:29] LABS: CKMB % Relative Index 1.7 % (1.5-5.0); Creatine Kinase MB 1.78 ng/mL (<2.37)
--- NOTE | 2018-06-25 17:34 | PC.NURSE ---
@1704 pt became tachycardic w/ HR 198, regular rate/ rythm. Dr. Amaro called to room. Pt c/o increased sob. RT present. Pt placed on cardioversion pads, Adenosine 6 mg iv push w/ HR decrease to 120-130 rapid afib w/ rvr, then sped up again to 190. Second adenosine 12 mg iv given w/ HR decreased to 80s and return to 140 afib RVR. Pt given metoprolol w/ HR 100-130 afib/ Lasix 40 mg iv for chf. Pt currently on 2 L NC. Repeat EKG completed. Pt denies chest pain currently
[2018-06-25 17:38] LABS: PCO2 ABG 41.3 mmHg (35-45); pH ABG 7.43 (7.35-7.45)
[2018-06-25 17:39] LABS: Procalcitonin < 0.05 ng/mL (<0.5)
[2018-06-25 17:39] LABS: Fractionated Inspired Oxygen 32; HCO3 ABG 28 mmol/L (22-26); Oxygen Saturation ABG 97 % (95-100); PO2 ABG 87 mmHg (80-100); TCO2 ABG 29 mmol/L (21-31)
[2018-06-25 17:48] LABS: RBC Urine None Seen (0-5/HPF)
[2018-06-25 17:49] LABS: Lactate (Lactic Acid) 1.8 mmol/L (0.7-2.1)
[2018-06-25 17:51] LABS: Appearance Urine UA CLEAR; Bilirubin Urine UA NEGATIVE (NEGATIVE); Color Urine UA YELLOW; Glucose Urine UA NEGATIVE (Negative); Ketones Urine UA NEGATIVE (NEGATIVE); Leukocyte Esterase Urine UA TRACE (NEGATIVE); Nitrite Urine UA POSITIVE (Negative); Occult Blood Urine UA NEGATIVE (Negative); Protein Urine UA NEGATIVE (Negative); Urobilinogen Urine UA 0.2 E.U./dL (0.2); pH Urine UA 7.5 (4.5-8.0)
[2018-06-25 18:11] LABS: Bacteria Urine Many (>30); Culture Indicated Urine Specimen Cultured; Squamous Epithelial Cell Urine None Seen (0-5/HPF); WBC Urine 5-10/HPF (0-5/HPF)
[2018-06-25] MEDS: CEFTRIAXONE 1 GM/50 ML FROZ.PIGGY IV (18:36)
[2018-06-25] MEDS: METOPROLOL IR 25 MG TABLET PO ×2 (18:36→20:45)
[2018-06-25 19:04] LABS: Prothrombin Time 23.5 SECONDS (10.1-12.7)
[2018-06-25] MEDS: methylPREDNISolone 125 MG/2 ML VIAL 80 MG IV (19:15)
--- NOTE | 2018-06-25 20:22 | DI.ECHO.S_ITS ---
[place] [facility]---------+ [facility] +---------+ : : [address] : : : : [id number] : : : : Phone: [phone] Echocardiogram Report + + :Name: ELIUD BENDER Study Date: 06/26/2018 Height: 60 in : :[facility] Exam Location: [place] Weight: 98 lb : : Gender: Female BSA: 1.4 m2 : :: 1940 Age: 77 yrs BP: 120/78 mmHg: :Reason For Study: SHORTNESS OF BREATH : : Performed By: Casey Crowley : :Referring: NACHO MENARD : + + Interpretation Summary Technically difficult study. Apical windows not obtained due lack of cardiac visualization. 1) Normal left ventricular size, wall motion, and systolic function (EF 60- 65%). 2) Grossly, normal right ventricular size and function. 3) No significant valvular abnormalities. 4) The right ventricular systolic pressure is estimated to be at least 40 mmHg based on an estimated right atrial pressure of 3 mm Hg. 5) Compared to the Echo done 07/26/2016, no significant change. Procedure: A two-dimensional transthoracic echocardiogram with color flow and Doppler was performed. The patient was supine during the exam. The study quality was technically difficult. The apical views were not obtained due to lack of a useable window.. The patient was in atrial fibrillation with controlled ventricular rate during the exam. The patient had a heart rate of 77-112 beats per minute. Left Ventricle: The left ventricle is grossly normal size. There is normal left ventricular wall thickness. The ejection fraction is estimated to be 60- 65%. Regional wall motion abnormalities cannot be excluded due to limited visualization. Right Ventricle: The right ventricle grossly appears normal in size with probable normal systolic function. Mitral Valve: There is mild mitral annular calcification. There is no mitral regurgitation noted. Aortic Valve: The aortic valve is trileaflet. The aortic valve opens well. There is mild aortic regurgitation. Tricuspid Valve: The tricuspid valve leaflets are thin and pliable. There is mild tricuspid regurgitation. The right ventricular systolic pressure is estimated to be at least 40 mmHg based on an estimated right atrial pressure of 3 mm Hg. Great Vessels: The aortic root is normal size. The ascending aorta is normal in size. The IVC is of normal diameter and collapses greater than 50% with a sniff. This suggests a low right atrial pressure of 3 mm Hg. MMode/2D Measurements & Calculations LVIDd: 3.2 cm LVOT diam: 2.0 cm LVIDs: 2.0 cm Ao root diam: 2.6 cm FS: 37.5 % Aortic Jxn: 2.4 cm EPSS: 0.47 cm asc Aorta Diam: 3.0 cm IVSd: 0.85 cm LVPWd: 1.1 cm LV bird. diameter/BSA (cm/m^2): 2.3 LV sys. diameter/BSA (cm/m^2): 1.4 IVC diam: 1.7 cm Doppler Measurements & Calculations MV E max caro: 61.5 cm/sec TR max caro: 267.4 cm/sec MV A max caro: 1.5 cm/sec TR max P.9 mmHg MV E/A: 41.8 PA V2 max: 55.1 cm/sec MV dec time: 0.10 sec PA V2 mean: 38.7 cm/sec PA mean P.66 mmHg PA pr(Accel): 64.0 mmHg PA Accel Time: 0.04 sec Reading Physician:02:27 PM
[2018-06-25 21:04] LABS: BUN Creatinine Ratio 26.3 (6-22); Blood Urea Nitrogen 21 mg/dL (7-17); Calcium 8.9 mg/dL (8.4-10.2); Carbon Dioxide 28 mmol/L (22-32); Chloride 98 mmol/L (98-107); Estimated Glomerular Filt Rate > 60.0 mL/min (>60); Glucose 140 mg/dL (80-110); HEMOLYSIS < 15 (0-50); Potassium 3.6 mmol/L (3.4-5.1); Sodium 138 mmol/L (137-145)
[2018-06-25 21:16] LABS: Troponin I < 0.012 ng/mL (0.01-0.034)
--- NOTE | 2018-06-25 21:17 | PC.NURSE ---
1999- Patient arrived via stretcher to room 101. Patient assisted to the bed. Patient was able to stand and pivot to sit on her bed. Patient vitals taken, heart rate Afib/CVR. Patient is on room air. Patient has had a right pneumonectomy. Hicks draining straw colored urine. Patient is having muscle spasms to lower extremities. Patient was oriented to room and advised not to get oob on her own. Patient verbalized understanding. Patient stable at time of admission.
[2018-06-25 21:19] LABS: Magnesium 1.8 mg/dL (1.6-2.3)
[2018-06-26] VITALS (10 sets, daily range): BP systolic 111–146; BP diastolic 60–95; PULSE 87–117; RESP 16–20; TEMP 36.6–36.7; O2SAT 93–99
[2018-06-26] MEDS: SODIUM CHLORIDE 0.9% FLUSH 10 ML IV ×3 (03:01→21:49)
[2018-06-26] MEDS: methylPREDNISolone 125 MG/2 ML VIAL 80 MG IV (03:01)
--- NOTE | 2018-06-26 08:29 | PM.HP.1 ---
History of Present Illness Date Patient Seen: 06/26/18 Time Patient Seen: 08:29 Chief complaint: SHORTNESS OF BREATH Narrative: Shortness of breath. 69-year-old female admitted with through the emergency room last night for shortness of breath. Patient was seen in the emergency room the day before for similar symptoms evaluation was unremarkable and was discharged. She was found at that time to be anemic and was advised to contact her PCP for follow-up of her anemia. The patient has been feeling somewhat short of breath for about the last 2 weeks or so. Patient returned from a trip from [facility] on . She noticed that she was somewhat short of breath most of the time she was in [place]. Early in the month she had at least 2 days of red rectal bleeding and did seem to contribute to her dizziness. Because she was [place] she did not want to deal with medical system and discontinued on with her medication. On the flight home she felt significantly dizzy and shortness of breath required a wheelchair to take her to the baggage checked. Since since she has been home feeling short of breath no fevers no chills no cough no mucus production no URI symptoms no more rectal bleeding. Patient was seen here as stated on Saturday shortness of breath workup there was negative for any etiology including chest x-ray, venous Doppler, lab studies except for the decreased hemoglobin. Patient has no history of anemia. She believes she had a colonoscopy 5 years ago was told there was ?normal? unaware of any hemorrhoids or diverticulosis. Yesterday patient took her dog for a walk around the park got very short of breath and felt it was time to be re-evaluated in the emergency room. Patient has history of atrial fibrillation and most of the time is not aware of it occasionally she feels palpitations and sits down and takes deep breaths and seemed to resolve spontaneously. No history of heart or heart attack strokes. She has a history of diagnosis of COPD unclear exactly how this is made. 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 She was involved with pulmonary rehabilitation on hospital at that time and did well. She is not she has not required supplemental oxygen in the past. She uses Spiriva 2 puffs daily for COPD and has helped significantly. Additionally she was told by her prior doctor Dr. Fortune that she had ?asthma? was per prescribed 2 different inhalers which she did use could she was not convinced that was helpful nor but she can as she had asthma. Patient has been on warfarin perhaps last 4 years she believes medications started by privacy analyst Dr. Hayes. Patient also apparently has a diagnosis of osteopenia/osteoporosis and is on Fosamax once weekly. 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 Status post right pneumonectomy. Followed by Dr. Marin in Oncology on a regular basis no evidence of any residual disease at this time Patient History Medical History Hypertension (Chronic) Osteoarthritis (Chronic) Osteoporosis (Chronic 2015) Atrial fibrillation (Resolved 2013) Lung cancer (Resolved 2006) Ovarian cancer (Resolved 1994) Uterine cancer (Resolved 1994) Surgical History Anesthesia (Resolved) History of breast augmentation (Resolved 1992) History of hip replacement (Resolved 01/2013) History of oophorectomy (Resolved 1994) History of pneumonectomy (Resolved 05/2007) Status post hysterectomy (Resolved 1994) History of bilateral salpingo-oophorectomy (BSO) Family History Father Hypertension Prostate cancer Grandfather Stroke Grandmother Diabetes mellitus Mother Diabetes mellitus, type II Hypertension Stroke Grandfather No problems noted. Grandmother No problems noted. Social History marital status: unmarried,single household members: none lives independently: Yes pets and animals: Yes education level: college occupational status: other Smoking Status: Former smoker alcohol intake: current substance use type: does not use Family & Social History Family History Father Hypertension Prostate cancer Grandfather Stroke Grandmother Diabetes mellitus Mother Diabetes mellitus, type II Hypertension Stroke Grandfather No problems noted. Grandmother No problems noted. Social History: household members none Prior Living Arrangements House lives independently Yes Safety & Behavioral: Feels Safe in Current Yes Environment Been Physically Hurt or No Threatened By a Person Suicidal Ideation Description None Suicide Plan Description No Plan Tobacco & Substance use: Smoking Status Former smoker alcohol intake current alcohol intake frequency holiday/special occasion Substance Use Type does not use Meds Home Medications Medication Instructions Recorded Confirmed Type cholecalciferol (vitamin D3) 2,000 units PO DAILY #0 06/19/16 06/25/18 History [Vitamin D3] metoprolol tartrate 25 mg tablet 12.5 mg PO BID #30 tab 09/23/17 06/25/18 Rx warfarin 2 mg tablet 2 mg PO SUMOWETHFRSA tab 12/03/17 06/25/18 History tiotropium bromide 18 mcg capsule 1 cap INHALATION DAILY #30 06/05/18 06/25/18 Rx with inhalation device inhalation alendronate [Fosamax] 70 mg PO MATA 06/24/18 06/25/18 History calcium carbonate-vitamin D3 2 tab PO DAILY 06/24/18 06/25/18 History [Calcium 600 + D(3)] multivitamin with minerals 1 tab PO DAILY 06/24/18 06/25/18 History warfarin [Coumadin] 1 mg PO TU 06/24/18 06/25/18 History Allergies Allergy/AdvReac Type Severity Reaction Status Date / Time No Known Drug Allergies Allergy Verified 06/24/18 11:22 Review of Systems Review of Systems All systems reviewed & are unremarkable except as noted in HPI and below Exam Vital Signs (past 8 hours): - 06/26/18 04:00 06/26/18 08:00 Temperature 98.1 F 97.9 F Pulse Rate 94 H 102 H Respiratory Rate 20 19 Blood Pressure 146/95 H 120/78 Pulse Oximetry 93 99 Oxygen Delivery Method Room Air Oxygen Flow Rate 1 Narrative Exam Narrative: Gen.: Skin: Warm well perfused. No prominent lesions. Nonicteric. HEENT: PERRL., normal EOM, external ears canals TMs normal, nasal mucosa normal and midline septum, oropharynx without lesions. Neck: Trachea midline. Thyroid nontender and not enlarged. Carotids without bruits. No lymphadenopathy Back: No obvious deformity or tenderness. Chest: Clear to P&A. Right lung surgically absent. Left lung is entirely clear CV: RRR no murmur or gallop. No JVD. Abdomen: No masses bruits tenderness or visceromegaly. Neuro: Cranial nerves II through XII grossly intact. Sensory and motor exams intact. Gait normal. Mental status: Intact for screening Extremities: No cyanosis clubbing or edema Musculoskeletal: No gross deformities Lymphatics: Negative for lymphadenopathy, supraclavicular axillary or inguinal Objective Labs Result Diagrams: 06/25/18 16:45 06/25/18 20:47 Labs: Laboratory Results - last 24 hr 06/25/18 06/25/18 06/25/18 16:45 16:45 16:45 WBC 5.6 RBC 3.73 L Hgb 10.4 L Hct 32.4 L MCV 86.9 MCH 27.8 MCHC 32.0 RDW 15.2 H Plt Count 261 Neut % (Auto) 51.7 Lymph % (Auto) 33.0 Faulkner % (Auto) 12.4 Eos % (Auto) 2.3 Baso % (Auto) 0.6 Neut # (Auto) 2900 Lymph # (Auto) 1800 Faulkner # (Auto) 700 Eos # (Auto) 100 Baso # (Auto) 0 PT INR ABG pH ABG pCO2 ABG pO2 ABG HCO3 ABG Total CO2 ABG O2 Saturation ABG Base Excess FiO2 Sodium 136 L Potassium 3.7 Chloride 99 Carbon Dioxide 30 BUN 21 H Creatinine 0.90 Estimated GFR > 60.0 BUN/Creatinine Ratio 23.3 H Glucose 112 H Lactate Calcium 9.2 Magnesium 1.9 Total Bilirubin 0.6 AST 32 ALT 28 Alkaline Phosphatase 60 Total Creatine Kinase 103 CK-MB (CK-2) 1.78 CK-MB (CK-2) Rel Index 1.7 Troponin I < 0.012 B-Natriuretic Peptide 274 H Total Protein 6.9 Albumin 4.0 Globulin 2.9 Albumin/Globulin Ratio 1.4 Procalcitonin < 0.05 Urine Color Urine Appearance Urine pH Ur Specific [place] Urine Protein Urine Glucose (UA) Urine Ketones Urine Occult Blood Urine Nitrate Urine Bilirubin Urine Urobilinogen Ur Leukocyte Esterase Urine RBC Urine WBC Ur Squamous Epith Cells Urine Bacteria Ur Culture Indicated? 06/25/18 06/25/18 06/25/18 16:48 17:15 17:20 WBC RBC Hgb Hct MCV MCH MCHC RDW Plt Count Neut % (Auto) Lymph % (Auto) Faulkner % (Auto) Eos % (Auto) Baso % (Auto) Neut # (Auto) Lymph # (Auto) Faulkner # (Auto) Eos # (Auto) Baso # (Auto) PT 23.5 H INR 2.0 H ABG pH 7.43 ABG pCO2 41.3 ABG pO2 87 ABG HCO3 28 H ABG Total CO2 29 ABG O2 Saturation 97 ABG Base Excess 3.0 H FiO2 32 Sodium Potassium Chloride Carbon Dioxide BUN Creatinine Estimated GFR BUN/Creatinine Ratio Glucose Lactate 1.8 Calcium Magnesium Total Bilirubin AST ALT Alkaline Phosphatase Total Creatine Kinase CK-MB (CK-2) CK-MB (CK-2) Rel Index Troponin I B-Natriuretic Peptide Total Protein Albumin Globulin Albumin/Globulin Ratio Procalcitonin Urine Color Urine Appearance Urine pH Ur Specific [place] Urine Protein Urine Glucose (UA) Urine Ketones Urine Occult Blood Urine Nitrate Urine Bilirubin Urine Urobilinogen Ur Leukocyte Esterase Urine RBC Urine WBC Ur Squamous Epith Cells Urine Bacteria Ur Culture Indicated? 06/25/18 06/25/18 06/25/18 17:45 20:47 20:47 WBC RBC Hgb Hct MCV MCH MCHC RDW Plt Count Neut % (Auto) Lymph % (Auto) Faulkner % (Auto) Eos % (Auto) Baso % (Auto) Neut # (Auto) Lymph # (Auto) Faulkner # (Auto) Eos # (Auto) Baso # (Auto) PT INR ABG pH ABG pCO2 ABG pO2 ABG HCO3 ABG Total CO2 ABG O2 Saturation ABG Base Excess FiO2 Sodium 138 Potassium 3.6 Chloride 98 Carbon Dioxide 28 BUN 21 H Creatinine 0.80 Estimated GFR > 60.0 BUN/Creatinine Ratio 26.3 H Glucose 140 H Lactate Calcium 8.9 Magnesium Total Bilirubin AST ALT Alkaline Phosphatase Total Creatine Kinase CK-MB (CK-2) CK-MB (CK-2) Rel Index Troponin I < 0.012 B-Natriuretic Peptide Total Protein Albumin Globulin Albumin/Globulin Ratio Procalcitonin Urine Color Yellow Urine Appearance Clear Urine pH 7.5 Ur Specific [place] 1.010 Urine Protein Negative Urine Glucose (UA) Negative Urine Ketones Negative Urine Occult Blood Negative Urine Nitrate Positive H Urine Bilirubin Negative Urine Urobilinogen 0.2 Ur Leukocyte Esterase Trace H Urine RBC None seen Urine WBC 5-10/hpf H Ur Squamous Epith Cells None seen Urine Bacteria Many (>30) H Ur Culture Indicated? Specimen cultured 06/25/18 20:47 WBC RBC Hgb Hct MCV MCH MCHC RDW Plt Count Neut % (Auto) Lymph % (Auto) Faulkner % (Auto) Eos % (Auto) Baso % (Auto) Neut # (Auto) Lymph # (Auto) Fa[place]ner # (Auto) Eos # (Auto) Baso # (Auto) PT INR ABG pH ABG pCO2 ABG pO2 ABG HCO3 ABG Total CO2 ABG O2 Saturation ABG Base Excess FiO2 Sodium Potassium Chloride Carbon Dioxide BUN Creatinine Estimated GFR BUN/Creatinine Ratio Glucose Lactate Calcium Magnesium 1.8 Total Bilirubin AST ALT Alkaline Phosphatase Total Creatine Kinase CK-MB (CK-2) CK-MB (CK-2) Rel Index Troponin I B-Natriuretic Peptide Total Protein Albumin Globulin Albumin/Globulin Ratio Procalcitonin Urine Color Urine Appearance Urine pH Ur Specific [place] Urine Protein Urine Glucose (UA) Urine Ketones Urine Occult Blood Urine Nitrate Urine Bilirubin Urine Urobilinogen Ur Leukocyte Esterase Urine RBC Urine WBC Ur Squamous Epith Cells Urine Bacteria Ur Culture Indicated? Chest x-ray from urgency room x2 showed a right lung surgically absent left lung clear venous Doppler negative as stated Assessment & Plan Assessment & Plan narrative: 1. Admitting diagnosis is shortness of breath. And is probably as result of multifactorial issues which include atrial fibrillation, secondary CC congestive heart failure, COPD, and perhaps exacerbation of pre-existing COPD. Patient did respond to IV Lasix in the emergency room diuresing well implying evidence for fluid overload. Really no evidence for infection but certainly consistent with pre-existing COPD. I suspect the primary problem is her atrial fibrillation with rapid ventricular response resulting in fluid retention. Pre-existing COPD compromise any reserve. 2. New onset anemia further workup pending. 3. Apparent urinary tract infection she is on Levaquin. 4. Because of possibility of this being a component of COPD as she be maintain on a decreased dose of Solu-Medrol today and perhaps discontinue tomorrow. Echocardiogram pending to evaluate contribution of congestive heart failure. 6. Dr. Puckett to assume care tomorrow
--- NOTE | 2018-06-26 08:32 | CM.DANOTE ---
DCP: Case received, EMR reviewed and met with patient. Introduced self and role. DCP template completed with information currently available. Patient is a 77 year old female who admitted yesterday evening to the care of the hospitalist team. PCP: Dr. Puckett. Payer: confirmed: Medicare/BCBS Out of [facility]. Patient came to hospital via family vehicle yesterday due to shortness of breath. Patient has history of COPD and Pneumonectomy. She also has history of a-fib. Patient holds diagnosis of a-fib, and acute UTI. Met with patient, pleasant. Alert and oriented. Lives here in [place], is a . Has a dog at home, and friends to help out if needed. She is independent. Confirmed that she is not on home oxygen. P: DCP to continue to follow closely. Patient should be able to go home when she is medically stable. Cee Adams RN/Barrel Repairer
[2018-06-26] MEDS: levoFLOXacin 250 MG/50 ML PIGGYBACK 50 MG IV (08:39)
[2018-06-26] MEDS: METOPROLOL ER 25 MG TABLET PO ×3 (08:41→21:49)
--- NOTE | 2018-06-26 11:37 | PT.IPTN ---
Current Diagnoses Unspecified atrial fibrillation (06/25/18) Physical Therapy Treatment Note M3 PT-IP Subjective Start: 06/26/18 11:35 Freq: NEEDED Status: Active Protocol: Document 06/26/18 11:00 (Rec: 06/26/18 11:37 [email or web address]) Subjective Physical Therapy Visit Type Type Patient Unavailable Visit Start Time 11:00 Notes Called ICU nursing, pt is currently having echocardiogram at 1100am. Reattempt PT later this PM.
[2018-06-26 11:44] LABS: HEMOLYSIS < 15 (0-50); Iron 30 ug/dL (37-170)
[2018-06-26 11:55] LABS: Percent Iron Saturation 7 % (15-50); Total Iron Binding Capacity 422 ug/dL (265-497); Transferrin 337 mg/dL (206-381)
[2018-06-26 12:24] LABS: Ferritin 9.2 ng/mL (11.1-264)
[2018-06-26 12:54] LABS: Folate > 20.0 ng/mL (2.76-20.0); Vitamin B12 832 pg/mL (239-931)
[2018-06-26] MEDS: TIOTROPIUM BROMIDE 18 MCG INHALER INH (13:53)
--- NOTE | 2018-06-26 14:31 | PC.NURSE ---
pt noted to have increased hr ( 110-130bpm) at rest and c/o slight lightheadedness- telephone update to MD - new orders received for add'l po dose of metoprolol- will monitor closely
--- NOTE | 2018-06-26 15:45 | PT.IIE ---
Current Diagnoses Unspecified atrial fibrillation (06/25/18) Surgical History (Last Reviewed 06/26/18 @ 08:35 by Dustin Parsons MD) Anesthesia (Resolved) History of breast augmentation (Resolved 1992) History of hip replacement (Resolved 01/2013) History of oophorectomy (Resolved 1994) History of pneumonectomy (Resolved 05/2007) Status post hysterectomy (Resolved 1994) History of bilateral salpingo-oophorectomy (BSO) Medical History (Last Reviewed 06/26/18 @ 08:35 by Dustin Parsons MD) Hypertension (Chronic) Osteoarthritis (Chronic) Osteoporosis (Chronic 2015) Atrial fibrillation (Resolved 2013) Lung cancer (Resolved 2006) Ovarian cancer (Resolved 1994) Uterine cancer (Resolved 1994) Physical Therapy Inpatient Evaluation/Re-Eval M1 PT/OT-IP Prior Functional Status Start: 06/26/18 11:35 Freq: NEEDED Status: Active Protocol: Document 06/26/18 15:00 HH (Rec: 06/26/18 15:45 [email or web address]) Medical Review Prior Functional Status Medical History Reviewed Yes Diet/Fluid Consistency Regular Communication No deficits noted. Able to make needs known Mobility and Gait Pt is an independent ambulator at home and community without using AD. Pt used to walk a mile a day, walk her dog and also able to drive. Pt regularly goes to nondenominational as well. Activities of Daily Living and IADL's Pt is independent with ADLs and IADLs without AD. Social History Household Members none Living Arrangements House Number of Floors (Floors) One Floor Number of Stairs To Enter/Railing? 1 BERENICE and 12 steps to basement Home Environment Standard Height Toilet Walk in Shower Employment Status Retired Additional Social History Comment Pt lives alone in [place], is a . Has a dog at home, and friends to help out if needed. She is independent. The patient has been feeling somewhat short of breath for about the last 2 weeks or so. Patient returned from a trip from [place] on . She noticed that she was somewhat short of breath most of the time she was in [place]. Pt admitted to ER after she felt SOB while walking with her dog . Admitting diagnosis is shortness of breath. And is probably as result of multifactorial issues which include atrial fibrillation, secondary CC congestive heart failure, COPD, and perhaps exacerbation of pre-existing COPD M2 PT-IP Current Condition Start: 06/26/18 11:35 Freq: NEEDED Status: Active Protocol: Document 06/26/18 15:00 (Rec: 06/26/18 15:45 [email or web address]) Physical Therapy Current Condition Current Condition Evaluation Date 06/26/18 Treatment Diagnosis SOB, A-fib, impaired gait and activity tolerance Onset Date 06/25/18 Weight Bearing Status Weight Bearing Status Weight Bear as Tolerated M3 PT-IP Subjective Start: 06/26/18 11:35 Freq: NEEDED Status: Active Protocol: Document 06/26/18 15:00 (Rec: 06/26/18 15:45 [email or web address]) Subjective Physical Therapy Visit Type Type Initial Evaluation Visit Start Time 15:00 Visit Stop Time 15:20 Total Visit Minutes 20 Notes Per RN, pt has been getting OOB and walked around her room without AD. She did c/o slight dizziness but BP was stable. Number of FIELD TAX AUDITOR Visits 0 Physical Therapy Visit Comments Patient Comments Im a lot better than yesterday. Patient Goals To return home Therapy Pain Assessment Pain Present Pain Present Denied Pain M4 PT-IP Mobility and Gait Start: 06/26/18 11:35 Freq: NEEDED Status: Active Protocol: Document 06/26/18 15:00 HH (Rec: 06/26/18 15:45 [email or web address]) PT-Bed Mobility Assessment Scooting Scooting to Edge of Bed Independent PT-Transfer Assessment Sit to and From Stand Sit to and from Stand Standby Assistance Equipment Transfer Assistive Device None Orthotic/Prosthetic Devices or Brace: No Transfers Transfer Destination Bed Chair Transfer Technique Stand Step Pivot Transfer Ability Level of Assist Standby Assistance Comments Mobility Comments Pt was sitting EOB upon assessment. BP at 138/77 HR 97 . Pt got up and amb then returned to EOB with SBA for transfers. Pt is very steady and cautious with obstacles around. Gait Assessment Gait Gait Assistance Required: Standby Assistance Distance (Feet) 200 Able to Maintain Weight Bearing Status Yes During Gait Assistive Devices Assistive Device None Orthotic/Prosthetic Devices or Brace: No Gait Deviations General Gait Pattern Decreased Stride Length Decreased Feet Clearance Flexed Trunk Factors Limiting Gait Function Factors Limiting Gait Function Decreased Activity Tolerance Decreased Strength Respiratory Distress Comments Gait Comments Pt amb from EOB to hallway for 3 round trips approx 200 ft without AD. Pt started to get slightly SOB and fatigue towards the last 50 feet and her sentences was becoming shorter as well. Her HR 99 O2 Sat 97% during standing break. Pt returned back to EOB, BP at 151/88 and HR 110. Pt did c /o slight fatigue and SOB but she was able to recover to baseline within 2 mins. Stair Climbing Assessment Comments Stair Climbing Comments did not assess PT-Balance Assessment Sitting Balance and Reactions Static Sitting Balance Ability Normal Dynamic Sitting Balance Ability Normal Standing Balance and Reactions Static Standing Balance Ability Normal Dynamic Standing Balance Ability Normal M5 PT-IP Objective Assessments Start: 06/26/18 11:35 Freq: NEEDED Status: Active Protocol: Document 06/26/18 15:00 (Rec: 06/26/18 15:45 [email or web address]) Orientation Orientation/Cognition Level of Alertness Alert Orientation Name Age Birthday Month Date Year Day of Week Place Situation Language Function Ability No Deficits Noted Safety Awareness Understands Safety Issues Memory Description No Deficits Noted Gross Range of Motion Upper Extremity ROM Assessment Within Functional Limits Lower Extremity ROM Assessment Within Functional Limits Strength Upper Extremity Strength Assessment Within Functional Limits Lower Extremity Strength Assessment Within Functional Limits Coordination Assessment Gross Coordination Gross Coordination WNL Assessment Finger to Nose Test Normal Performance Pronation/Supination Test Normal Performance Sensation Assessment Sensation Gross Sensation WNL Light Touch Intact Proprioception (Position) Intact Muscle Tone Muscle Tone WNL Yes M6 PT-IP Treatment Start: 06/26/18 11:35 Freq: NEEDED Status: Active Protocol: Document 06/26/18 15:00 HH (Rec: 06/26/18 15:45 [email or web address]) Physical Therapy Treatment Education Education Provided Safety M7 PT-IP Assessment and Plan Start: 06/26/18 11:35 Freq: NEEDED Status: Active Protocol: Document 06/26/18 15:00 HH (Rec: 06/26/18 15:45 [email or web address]) PT Summary Assessment and Plan Potential Rehabilitation Potential Excellent Status of Condition at Evaluation Stable Summary Impairments Bed Mobility Transfers Gait Activity Tolerance Assessment Summary Pt is low complexity with overall SBA/ independent for transfers and amb without AD. Pt did have slight respiratory distress whose BP and HR elevated (from BP 130s/70s HR 97 to BP 150s/90s HR 110s) slightly and requested short rest during amb. Pt stated I am currently a bit slower / weaker than before but i feel safe at this point. Pt's VSS was able to return to baseline within 2 mins after seating at EOB. Pt overall demonstrates safe mobility and steady and she is expected to d/c home once she is medically stable. Goals Bed Mobility Goal Independent Transfer Goal Independent Gait Goal Independent Gait Distance 400 Other Goals climb 1 step without railings Days to Meet Goals 3 Frequency of Treatment Frequency Of Treatment Once a Day Treatment Plan Physical Therapy Treatment Plan Bed Mobility Training Transfer Training Gait Training Therapeutic Exercise Discharge Planning Other Recommendations and Next Treatment monitor VSS during session Focus amb as cristal without AD climb 1 step without railing Recommendations To Nursing Amount of Assist Needed Standby Assistance Discharge Recommendations PT Discharge Recommendations Home Other Discharge Recommendations Pt overall demonstrates safe mobility and steady and she is expected to d/c home once she is medically stable.
[2018-06-26] MEDS: WARFARIN 2 MG TABLET PO (18:01)
[2018-06-27] VITALS (12 sets, daily range): BP systolic 120–129; BP diastolic 55–84; PULSE 74–99; RESP 16–20; TEMP 36.5–37.2; O2SAT 94–97
[2018-06-27 05:36] LABS: Add Manual Diff / Slide Review NO; Basophils Absolute Auto 0 /uL (0-100); Basophils Percent Auto 0.2 % (0-2); Eosinophils Absolute Auto 0 /uL (0-450); Hematocrit 33.4 % (36-46); Hemoglobin 10.8 g/dL (12.0-16.0); Lymphocytes Absolute Auto 700 /uL (1100-4500); Lymphocytes Percent Auto 5.4 % (25-40); Mean Corpuscular HGB Conc 32.4 % (30-36); Mean Corpuscular Hemoglobin 27.5 PG (26-34); Monocytes Absolute Auto 600 /uL (0-900); Monocytes Percent Auto 4.3 % (3-14); Neutrophils Absolute Auto 12500 /uL (1500-7000); Neutrophils Percent Auto 90.1 % (50-75); Platelet Count 300 X10^3/uL (150-400); Red Blood Cell Count 3.93 X10^6/uL (4.0-5.2); White Blood Cell Count 13.8 X10^3/uL (4.5-11.0)
[2018-06-27 05:44] LABS: BUN Creatinine Ratio 38.8 (6-22); Blood Urea Nitrogen 31 mg/dL (7-17); Calcium 8.4 mg/dL (8.4-10.2); Carbon Dioxide 29 mmol/L (22-32); Chloride 94 mmol/L (98-107); Cholesterol 134 mg/dL (140-199); Estimated Glomerular Filt Rate > 60.0 mL/min (>60); Glucose 141 mg/dL (80-110); HDL Cholesterol 52 mg/dL (40-60); HEMOLYSIS < 15 (0-50); LDL Cholesterol Calculated 71 mg/dL (<100); Potassium 4.3 mmol/L (3.4-5.1); Sodium 132 mmol/L (137-145); Triglycerides 55 mg/dL (35-150)
[2018-06-27] MEDS: SODIUM CHLORIDE 0.9% FLUSH 10 ML IV ×2 (08:40→20:58)
[2018-06-27] MEDS: levoFLOXacin 250 MG/50 ML PIGGYBACK 50 MG IV (08:40)
[2018-06-27] MEDS: TIOTROPIUM BROMIDE 18 MCG INHALER INH (09:03)
--- NOTE | 2018-06-27 09:38 | PT.IPTN ---
Current Diagnoses Unspecified atrial fibrillation (06/25/18) Physical Therapy Treatment Note M2 PT-IP Current Condition Start: 06/26/18 11:35 Freq: NEEDED Status: Active Protocol: Document 06/26/18 15:00 HH (Rec: 06/26/18 15:45 HH [email or web address]) Physical Therapy Current Condition Current Condition Evaluation Date 06/26/18 Treatment Diagnosis SOB, A-fib, impaired gait and activity tolerance Onset Date 06/25/18 Weight Bearing Status Weight Bearing Status Weight Bear as Tolerated M3 PT-IP Subjective Start: 06/26/18 11:35 Freq: NEEDED Status: Active Protocol: Document 06/27/18 09:32 GGD (Rec: 06/27/18 09:38 GGD [email or web address]) Subjective Physical Therapy Visit Type Type Treatment Note Visit Start Time 09:05 Visit Stop Time 09:30 Total Visit Minutes 25 Number of BEATER AND PULPER FEEDER Visits 1 Physical Therapy Visit Comments Patient Comments Pt states she feeling better and hopes to go home. M4 PT-IP Mobility and Gait Start: 06/26/18 11:35 Freq: NEEDED Status: Active Protocol: Document 06/27/18 09:32 GGD (Rec: 06/27/18 09:38 GGD [email or web address]) PT-Bed Mobility Assessment Scooting Scooting to Edge of Bed Independent PT-Transfer Assessment Sit to and From Stand Sit to and from Stand Independent Equipment Transfer Assistive Device Bed Rail Orthotic/Prosthetic Devices or Brace: No Transfers Transfer Destination Bed Transfer Ability Level of Assist Standby Assistance Gait Assessment Gait Gait Assistance Required: Independent Distance (Feet) 320 Able to Maintain Weight Bearing Status Yes During Gait Assistive Devices Assistive Device None Orthotic/Prosthetic Devices or Brace: No Gait Deviations General Gait Pattern Decreased Stride Length Decreased Feet Clearance Flexed Trunk Factors Limiting Gait Function Factors Limiting Gait Function Decreased Activity Tolerance Decreased Strength Respiratory Distress Comments Gait Comments Pt O2 96-99% and HR 78-83 with activity. Stair Climbing Assessment Evaluation Level of Assist On Stairs Standby Assistance Devices Stair Climbing Assistive Devices None Technique/Endurance Stair Climbing Direction Ascend and Descend Stair Climbing Technique Step to Step Number of Steps Climbed 1 Query Text: Stair Climbing Set # Repetitions (reps) 2 M5 PT-IP Objective Assessments Start: 06/26/18 11:35 Freq: NEEDED Status: Active Protocol: Document 06/26/18 15:00 HH (Rec: 06/26/18 15:45 [email or web address]) Orientation Orientation/Cognition Level of Alertness Alert Orientation Name Age Birthday Month Date Year Day of Week Place Situation Language Function Ability No Deficits Noted Safety Awareness Understands Safety Issues Memory Description No Deficits Noted Gross Range of Motion Upper Extremity ROM Assessment Within Functional Limits Lower Extremity ROM Assessment Within Functional Limits Strength Upper Extremity Strength Assessment Within Functional Limits Lower Extremity Strength Assessment Within Functional Limits Coordination Assessment Gross Coordination Gross Coordination WNL Assessment Finger to Nose Test Normal Performance Pronation/Supination Test Normal Performance Sensation Assessment Sensation Gross Sensation WNL Light Touch Intact Proprioception (Position) Intact Muscle Tone Muscle Tone WNL Yes M6 PT-IP Treatment Start: 06/26/18 11:35 Freq: NEEDED Status: Active Protocol: Document 06/26/18 15:00 (Rec: 06/26/18 15:45 [email or web address]) Physical Therapy Treatment Education Education Provided Safety M7 PT-IP Assessment and Plan Start: 06/26/18 11:35 Freq: NEEDED Status: Active Protocol: Document 06/27/18 09:32 GGD (Rec: 06/27/18 09:38 GGD [email or web address]) PT Summary Assessment and Plan Summary Assessment Summary Pt improving with mobility. She was safe and stable with stair mobility. She had stable VS with mobility and no C/O SOB. Pt is independent with mobility and has no skilled PT needs. Frequency of Treatment Frequency Of Treatment Discharge Recommendations To Nursing Amount of Assist Needed Independent Discharge Recommendations PT Discharge Recommendations Home
[2018-06-27] MEDS: METOPROLOL ER 50 MG TABLET PO ×2 (10:47→20:58)
--- NOTE | 2018-06-27 10:49 | P.PN_ITS ---
Subjective Date Patient Seen: 06/27/18 Time Patient Seen: 07:45 Interval history: This morning the pt reports she is feeling significantly improved from previously. She states her breathing feels easier, and she is no longer coughing. She was able to ambulate in the room with only minimal lightheadedness yesterday. She is pleased with her progress. Exam Vital Signs (past 8 hours): - 06/27/18 05:07 06/27/18 08:00 06/27/18 08:45 Temperature 97.7 F 98.0 F Pulse Rate 96 H 99 H Respiratory Rate 18 16 Blood Pressure 126/55 L 125/84 Pulse Oximetry 96 97 95 06/27/18 09:04 Temperature Pulse Rate 88 Respiratory Rate 16 Blood Pressure Pulse Oximetry 96 Oxygen Delivery Method Room Air Oxygen Flow Rate 0 Narrative Exam Narrative: Gen: NAD, laying comfortably in bed, appears well, speaking easily in complete sentences CV: irregularly irregular rhythm, normal rate, grade 2/6 systolic murmur Resp: right side with absent breath sounds, left side clear to auscultation in all cortes, no crackles or significant wheezes Abd: soft, nontender, nondistended Ext: trace edema equally bilaterally Objective Labs Result Diagrams: 06/27/18 05:01 06/27/18 05:01 Labs: Laboratory Results - last 24 hr 06/25/18 06/25/18 06/27/18 Unknown Unknown 05:01 WBC 13.8 H D RBC 3.93 L Hgb 10.8 L Hct 33.4 L MCV 85.0 MCH 27.5 MCHC 32.4 RDW 15.0 H Plt Count 300 Neut % (Auto) 90.1 H D Lymph % (Auto) 5.4 L D [place] % (Auto) 4.3 Eos % (Auto) 0.0 L Baso % (Auto) 0.2 Neut # (Auto) 30947 H Lymph # (Auto) 700 L [place] # (Auto) 600 Eos # (Auto) 0 Baso # (Auto) 0 PT INR Sodium Potassium Chloride Carbon Dioxide BUN Creatinine Estimated GFR BUN/Creatinine Ratio Glucose Calcium Iron 30 L TIBC 422 % Saturation 7 L Transferrin 337 Ferritin 9.2 L Triglycerides Cholesterol LDL Cholesterol, Calc HDL Cholesterol Vitamin B12 832 Folate > 20.0 H 06/27/18 06/27/18 05:01 05:01 WBC RBC Hgb Hct MCV MCH MCHC RDW Plt Count Neut % (Auto) Lymph % (Auto) [place] % (Auto) Eos % (Auto) Baso % (Auto) Neut # (Auto) Lymph # (Auto) [place] # (Auto) Eos # (Auto) Baso # (Auto) PT 35.0 H D INR 3.0 H Sodium 132 L Potassium 4.3 Chloride 94 L Carbon Dioxide 29 BUN 31 H Creatinine 0.80 Estimated GFR > 60.0 BUN/Creatinine Ratio 38.8 H Glucose 141 H Calcium 8.4 Iron TIBC % Saturation Transferrin Ferritin Triglycerides 55 Cholesterol 134 L LDL Cholesterol, Calc 71 HDL Cholesterol 52 Vitamin B12 Folate Assessment & Plan (1) COPD (chronic obstructive pulmonary disease): Qualifiers: COPD type: Chronic bronchitis type: Emphysema type: Current visit: Yes Status: Acute (2) Atrial fibrillation with RVR: Current visit: Yes Status: Acute (3) Acute UTI: Current visit: Yes Status: Acute (4) Anemia: Qualifiers: Anemia type: Bone marrow failure anemia type: Chronic kidney disease stage: Folate deficiency anemia type: Hemolytic anemia type: Iron deficiency anemia type: Other causes of anemia: Vitamin B12 deficiency anemia type: Current visit: No Status: Acute (5) Dyspnea: Qualifiers: Dyspnea type: Current visit: No Status: Acute (6) Anticoagulated on warfarin: Current visit: No Status: Chronic Assessment & Plan narrative: 77yo woman with atrial fibrillation on coumadin, COPD, hx of right pneumonectomy secondary to metastatic cancer who presented with shortness of breath. Pt found to have atrial fibrillation with RVR in the ER, initially with poor response to medications but now stable with increased beta-kory. Shortness of breath likely multi-factorial with possible mild COPD exacerbation in addition to fluid retention due to afib with RVR. Echocardiogram was completed that showed no evidence of heart failure. 1) Dyspnea in setting of Afib with RVR: With poor baseline reserve due to hx of right pneumonectomy - Increase Metoprolol to 50mg daily (received this total yesterday) - Transition to PO prednisone for possible mild COPD exacerbation - Continue Coumadin 2) UTI: WBC count was increased today, possibly in part due to above steroids, however neutrophil count significantly elevated as well. Hicks catheter was removed yesterday. - Continue IV Levaquin for now - Transition to PO to complete course at d/c 3) Anemia: New finding. Pt did have acute blood in stool while on vacation recently. Now resolved. Heme occult negative in the ED. H/H stable. Labs suggestive of iron deficiency. - Start iron supplement - F/U with surgery as an outpatient for likely colonoscopy Code: Full code Diet: General Dispo: Pt likely ready for d/c tomorrow pending continued adequate HR control without significant drop in BP.
[2018-06-27] MEDS: FERROUS GLUCONATE 324 MG TABLET PO (13:48)
[2018-06-27] MEDS: WARFARIN 2 MG TABLET PO (17:31)
[2018-06-28 01:43] VITALS: BP 152/67; PULSE 69; RESP 19; TEMP 36.1; O2SAT 97
[2018-06-28 05:10] LABS: Add Manual Diff / Slide Review NO; Basophils Absolute Auto 0 /uL (0-100); Basophils Percent Auto 0.1 % (0-2); Eosinophils Absolute Auto 0 /uL (0-450); Hematocrit 33.7 % (36-46); Hemoglobin 10.9 g/dL (12.0-16.0); Lymphocytes Absolute Auto 1000 /uL (1100-4500); Lymphocytes Percent Auto 7.3 % (25-40); Mean Corpuscular HGB Conc 32.2 % (30-36); Mean Corpuscular Hemoglobin 27.5 PG (26-34); Mean Corpuscular Volume 85.4 fL (80-100); Monocytes Absolute Auto 800 /uL (0-900); Monocytes Percent Auto 5.8 % (3-14); Neutrophils Absolute Auto 12300 /uL (1500-7000); Neutrophils Percent Auto 86.8 % (50-75); Platelet Count 292 X10^3/uL (150-400); Red Blood Cell Count 3.95 X10^6/uL (4.0-5.2); Red Cell Distribution Width 15.3 % (11.6-14.8); White Blood Cell Count 14.1 X10^3/uL (4.5-11.0)
[2018-06-28 05:17] LABS: INR 3.8 (0.9-1.3); Prothrombin Time 45.1 SECONDS (10.1-12.7)
[2018-06-28 05:21] LABS: BUN Creatinine Ratio 33.8 (6-22); Blood Urea Nitrogen 27 mg/dL (7-17); Calcium 8.6 mg/dL (8.4-10.2); Carbon Dioxide 31 mmol/L (22-32); Chloride 99 mmol/L (98-107); Estimated Glomerular Filt Rate > 60.0 mL/min (>60); Glucose 110 mg/dL (80-110); HEMOLYSIS < 15 (0-50); Potassium 4.8 mmol/L (3.4-5.1); Sodium 134 mmol/L (137-145)
[2018-06-28 08:00] VITALS: BP 152/91; RESP 16; TEMP 36.5
[2018-06-28] MEDS: TIOTROPIUM BROMIDE 18 MCG INHALER INH (08:59)
[2018-06-28 09:04] VITALS: PULSE 63; RESP 12; O2SAT 98
[2018-06-28] MEDS: levoFLOXacin 250 MG/50 ML PIGGYBACK 50 MG IV (09:11)
[2018-06-28] MEDS: FERROUS GLUCONATE 324 MG TABLET PO (09:12)
[2018-06-28] MEDS: METOPROLOL ER 50 MG TABLET PO (09:12)
[2018-06-28] MEDS: predniSONE 20 MG TABLET PO (09:13)
[2018-06-28 09:38] VITALS: O2SAT 98
--- NOTE | 2018-06-28 10:17 | PM.DS.1 ---
History of Present Illness Date Patient Seen: 06/28/18 Time Patient Seen: 10:17 Chief complaint: SHORTNESS OF BREATH Narrative: [address] [address] History & Physical Report Patient: Cecille Toledo [facility]#: [id number] : 1940Acct:[id number] Age/Sex: 77 / F Date of Service: 06/25/18 Provider: Dustin Parsons MD History of Present Illness Date Patient Seen: 06/26/18 Time Patient Seen: 08:29 Chief complaint: SHORTNESS OF BREATH Narrative: Shortness of breath. 69-year-old female admitted with through the emergency room last night for shortness of breath. Patient was seen in the emergency room the day before for similar symptoms evaluation was unremarkable and was discharged. She was found at that time to be anemic and was advised to contact her PCP for follow-up of her anemia. The patient has been feeling somewhat short of breath for about the last 2 weeks or so. Patient returned from a trip from [facility] on . She noticed that she was somewhat short of breath most of the time she was in [place]. Early in the month she had at least 2 days of red rectal bleeding and did seem to contribute to her dizziness. Because she was in a foreign country she did not want to deal with medical system and discontinued on with her medication. On the flight home she felt significantly dizzy and shortness of breath required a wheelchair to take her to the baggage checked. Since since she has been home feeling short of breath no fevers no chills no cough no mucus production no URI symptoms no more rectal bleeding. Patient was seen here as stated on Saturday shortness of breath workup there was negative for any etiology including chest x-ray, venous Doppler, lab studies except for the decreased hemoglobin. Patient has no history of anemia. She believes she had a colonoscopy 5 years ago was told there was ?normal? unaware of any hemorrhoids or diverticulosis. Yesterday patient took her dog for a walk around the park got very short of breath and felt it was time to be re-evaluated in the emergency room. Patient has history of atrial fibrillation and most of the time is not aware of it occasionally she feels palpitations and sits down and takes deep breaths and seemed to resolve spontaneously. No history of heart or heart attack strokes. She has a history of diagnosis of COPD unclear exactly how this is made. 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 She was involved with pulmonary rehabilitation on hospital at that time and did well. She is not she has not required supplemental oxygen in the past. She uses Spiriva 2 puffs daily for COPD and has helped significantly. Additionally she was told by her prior doctor Dr. Fortune that she had ?asthma? was per prescribed 2 different inhalers which she did use could she was not convinced that was helpful nor but she can as she had asthma. Patient has been on warfarin perhaps last 4 years she believes medications started by financial report service sales agent Dr. Hayes. Patient also apparently has a diagnosis of osteopenia/osteoporosis and is on Fosamax once weekly. 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 Status post right pneumonectomy. Followed by Dr. Marin in Oncology on a regular basis no evidence of any residual disease at this time {from Dr. Parsons's history and physical} Discharge Providers Date of admission: 06/25/18 19:35 Discharge Date: 06/28/18 Primary care physician: Rosio Puckett MD Consults: 06/25/18 16:38 Consult to Respiratory Therapy Evaluate & Treat Comment: Physician Instructions: Evaluate and treat 06/25/18 20:22 Consult to Dietitian, Adult Routine Comment: Reason For Exam: assessed at high risk Consult to Pastoral Services Routine Comment: latter-day 06/26/18 08:21 Consult to Physical Therapy Evaluate & Treat Comment: Physician Instructions: Evaluate and Treat Discharge provider: Ammon Toney MD Summary Discharge Diagnosis: 1. Atrial fibrillation with rapid ventricular response 2. COPD exacerbation 3. Acute cystitis 4. Anemia, acute, cause not determined 5. Long-term use of anticoagulation with warfarin 6. History of endometrial adenocarcinoma 7. Osteoporosis Hospital Course: Patient was admitted via emergency department after presenting with increased dyspnea. It was felt as though her dyspnea is likely a combination of her atrial fibrillation with rapid ventricular response as well as a mild exacerbation of her COPD. Patient is status post pneumonectomy for malignancy and so only has 1 functioning lung. However she has done well without need for hospitalization because of primary pulmonary issues previously She was treated in the ICU for rate control of her atrial fibrillation also placed on IV steroids with frequent nebulizer treatments and respiratory therapy treatments etc. With that she improved rapidly. She was able to be switched from her enteral rate control agents to oral agents with good control of her atrial fibrillation. With this she had dramatic improvement in her sense of dyspnea. She also had echocardiogram performed for evaluation of possible acute congestive heart failure however echo was essentially unremarkable did not show etiology for congestive heart failure therefore that was not felt to be part of her presenting diagnosis Patient was also found to have a simple cystitis and was treated with antibiotic therapy for this At time of discharge patient was well rate controlled without evidence of hypotension on higher dose metoprolol orally. Patient had been transition to oral steroid therapy which will continue for her lung disease as well as her other usual inhalers etc. She was up and around and felt to be stable for discharge Patient also found to be modestly anemic upon presentation. No evidence of blood loss. The degree of anemia was not sufficient to be causing symptoms nor to require transfusion. This was not further evaluated during this hospitalization and should be evaluated as an outpatient Status at Discharge Cognitive/behavioral status at discharge: at baseline, oriented Functional status at discharge: independent ambulation Overall status at discharge: patient is back to baseline Exam Vital Signs (past 8 hours): - 06/28/18 08:00 06/28/18 09:04 06/28/18 09:38 Temperature 97.7 F Pulse Rate 63 Respiratory Rate 16 12 Blood Pressure 152/91 H Pulse Oximetry 98 98 Oxygen Delivery Method Room Air Oxygen Flow Rate 0 Narrative Exam Narrative: HEENT-unremarkable, normocephalic atraumatic Neck-no lymphadenopathy no bruits Lungs-clear anteriorly and posteriorly no wheezes no crackles good breath sounds on left only Heart-irregular rate and rhythm, no murmur, rub, or gallop. normal S1-S2 Abdomen-positive bowel tones, soft, nontender, nondistended, no hepatosplenomegaly, no masses palpable Neuro-normal to screening exam, gait not tested Extremities-no cyanosis clubbing or edema Objective Labs Result Diagrams: 06/28/18 04:57 06/28/18 04:57 Labs: Laboratory Results - last 24 hr 06/28/18 06/28/18 06/28/18 04:57 04:57 04:57 WBC 14.1 H RBC 3.95 L Hgb 10.9 L Hct 33.7 L MCV 85.4 MCH 27.5 MCHC 32.2 RDW 15.3 H Plt Count 292 Neut % (Auto) 86.8 H Lymph % (Auto) 7.3 L [place] % (Auto) 5.8 Eos % (Auto) 0.0 L Baso % (Auto) 0.1 Neut # (Auto) 38203 H Lymph # (Auto) 1000 L [place] # (Auto) 800 Eos # (Auto) 0 Baso # (Auto) 0 PT 45.1 H D INR 3.8 H Sodium 134 L Potassium 4.8 Chloride 99 Carbon Dioxide 31 BUN 27 H Creatinine 0.80 Estimated GFR > 60.0 BUN/Creatinine Ratio 33.8 H Glucose 110 Calcium 8.6 Discharge Plan Discharge Plan Patient Disposition: Home Discharge Med Rec/Prescriptions Prescriptions: New metoprolol succinate 50 mg Tablet Extended Release 24 Hr 50 mg PO BID Qty: 60 RF: 3 prednisone 20 mg Tablet See Rx Instructions .ROUTE .COMPLEX Qty: 8 RF: 0 ciprofloxacin HCl 250 mg tablet 250 mg PO BID Qty: 8 RF: 0 Continued cholecalciferol (vitamin D3) [Vitamin D3] 1,000 UNIT tablet 2,000 units PO DAILY Qty: 0 RF: 0 Spiriva with HandiHaler 18 mcg capsule, w/inhalation device 1 cap INHALATION DAILY Qty: 30 RF: 0 warfarin [Coumadin] 2 mg tablet 2 mg PO SUMOWETHFR RF: 0 warfarin [Coumadin] 2 mg tablet 1 mg PO TU RF: 0 calcium carbonate-vitamin D3 [Calcium 600 + D(3)] 600 mg(1,500mg) -200 unit Tablet 2 tab PO DAILY RF: 0 multivitamin with minerals Tablet 1 tab PO DAILY RF: 0 alendronate [Fosamax] 70 mg tablet 70 mg PO MATA RF: 0 Discontinued metoprolol tartrate 25 mg tablet 12.5 mg PO BID Qty: 30 RF: 11 Follow up/Referrals: Rosio Puckett MD [Primary Care Provider] - 1 Week (patient to call on Saturday06/30/18 to make appointment) Provider Discharge Instructions Diet: Diet as Tolerated Discharge Data Primary Care Provider: Rosio Puckett Attending Provider: Rosio Puckett Admit Date/Time: 06/25/18 19:35
--- NOTE | 2018-06-28 10:23 | P.DS_ITS ---
History of Present Illness Date Patient Seen: 06/28/18 Time Patient Seen: 10:17 Chief complaint: SHORTNESS OF BREATH Narrative: [address] [address] History & Physical Report Patient: Cecille Toledo BANNER#: [id number] : 1940Acct:[id number] Age/Sex: 77 / F Date of Service: 06/25/18 Provider: Dustin Parsons MD History of Present Illness Date Patient Seen: 06/26/18 Time Patient Seen: 08:29 Chief complaint: SHORTNESS OF BREATH Narrative: Shortness of breath. 69-year-old female admitted with through the emergency room last night for shortness of breath. Patient was seen in the emergency room the day before for similar symptoms evaluation was unremarkable and was discharged. She was found at that time to be anemic and was advised to contact her PCP for follow-up of her anemia. The patient has been feeling somewhat short of breath for about the last 2 weeks or so. Patient returned from a trip from [facility] on . She noticed that she was somewhat short of breath most of the time she was in [place]. Early in the month she had at least 2 days of red rectal bleeding and did seem to contribute to her dizziness. Because she was [place] she did not want to deal with medical system and discontinued on with her medication. On the flight home she felt significantly dizzy and shortness of breath required a wheelchair to take her to the baggage checked. Since since she has been home feeling short of breath no fevers no chills no cough no mucus production no URI symptoms no more rectal bleeding. Patient was seen here as stated on Saturday shortness of breath workup there was negative for any etiology including chest x-ray, venous Doppler, lab studies except for the decreased hemoglobin. Patient has no history of anemia. She believes she had a colonoscopy 5 years ago was told there was ?normal? unaware of any hemorrhoids or diverticulosis. Yesterday patient took her dog for a walk around the park got very short of breath and felt it was time to be re-evaluated in the emergency room. Patient has history of atrial fibrillation and most of the time is not aware of it occasionally she feels palpitations and sits down and takes deep breaths and seemed to resolve spontaneously. No history of heart or heart attack strokes. She has a history of diagnosis of COPD unclear exactly how this is made. 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 She was involved with pulmonary rehabilitation on hospital at that time and did well. She is not she has not required supplemental oxygen in the past. She uses Spiriva 2 puffs daily for COPD and has helped significantly. Additionally she was told by her prior doctor Dr. Fortune that she had ?asthma? was per prescribed 2 different inhalers which she did use could she was not convinced that was helpful nor but she can as she had asthma. Patient has been on warfarin perhaps last 4 years she believes medications started by electric organ assembler and checker Dr. Hayes. Patient also apparently has a diagnosis of osteopenia/osteoporosis and is on Fosamax once weekly. 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 Status post right pneumonectomy. Followed by Dr. Marin in Oncology on a regular basis no evidence of any residual disease at this time {from Dr. Parsons's history and physical} Discharge Providers Date of admission: 06/25/18 19:35 Discharge Date: 06/28/18 Primary care physician: Rosio Puckett MD Consults: 06/25/18 16:38 Consult to Respiratory Therapy Evaluate & Treat Comment: Physician Instructions: Evaluate and treat 06/25/18 20:22 Consult to Dietitian, Adult Routine Comment: Reason For Exam: assessed at high risk Consult to Pastoral Services Routine Comment: oriental orthodox 06/26/18 08:21 Consult to Physical Therapy Evaluate & Treat Comment: Physician Instructions: Evaluate and Treat Discharge provider: Ammon Toney MD Summary Discharge Diagnosis: 1. Atrial fibrillation with rapid ventricular response 2. COPD exacerbation 3. Acute cystitis 4. Anemia, acute, cause not determined 5. Long-term use of anticoagulation with warfarin 6. History of endometrial adenocarcinoma 7. Osteoporosis Hospital Course: Patient was admitted via emergency department after presenting with increased dyspnea. It was felt as though her dyspnea is likely a combination of her atrial fibrillation with rapid ventricular response as well as a mild exacerbation of her COPD. Patient is status post pneumonectomy for malignancy and so only has 1 functioning lung. However she has done well without need for hospitalization because of primary pulmonary issues previously She was treated in the ICU for rate control of her atrial fibrillation also placed on IV steroids with frequent nebulizer treatments and respiratory therapy treatments etc. With that she improved rapidly. She was able to be switched from her enteral rate control agents to oral agents with good control of her atrial fibrillation. With this she had dramatic improvement in her sense of dyspnea. She also had echocardiogram performed for evaluation of possible acute congestive heart failure however echo was essentially unremarkable did not show etiology for congestive heart failure therefore that was not felt to be part of her presenting diagnosis Patient was also found to have a simple cystitis and was treated with antibiotic therapy for this At time of discharge patient was well rate controlled without evidence of hypotension on higher dose metoprolol orally. Patient had been transition to oral steroid therapy which will continue for her lung disease as well as her other usual inhalers etc. She was up and around and felt to be stable for discharge Patient also found to be modestly anemic upon presentation. No evidence of blood loss. The degree of anemia was not sufficient to be causing symptoms nor to require transfusion. This was not further evaluated during this hospitalization and should be evaluated as an outpatient Status at Discharge Cognitive/behavioral status at discharge: at baseline, oriented Functional status at discharge: independent ambulation Overall status at discharge: patient is back to baseline Exam Vital Signs (past 8 hours): - 06/28/18 08:00 06/28/18 09:04 06/28/18 09:38 Temperature 97.7 F Pulse Rate 63 Respiratory Rate 16 12 Blood Pressure 152/91 H Pulse Oximetry 98 98 Oxygen Delivery Method Room Air Oxygen Flow Rate 0 Narrative Exam Narrative: HEENT-unremarkable, normocephalic atraumatic Neck-no lymphadenopathy no bruits Lungs-clear anteriorly and posteriorly no wheezes no crackles good breath sounds on left only Heart-irregular rate and rhythm, no murmur, rub, or gallop. normal S1-S2 Abdomen-positive bowel tones, soft, nontender, nondistended, no hepatosplenomegaly, no masses palpable Neuro-normal to screening exam, gait not tested Extremities-no cyanosis clubbing or edema Objective Labs Result Diagrams: 06/28/18 04:57 06/28/18 04:57 Labs: Laboratory Results - last 24 hr 06/28/18 06/28/18 06/28/18 04:57 04:57 04:57 WBC 14.1 H RBC 3.95 L Hgb 10.9 L Hct 33.7 L MCV 85.4 MCH 27.5 MCHC 32.2 RDW 15.3 H Plt Count 292 Neut % (Auto) 86.8 H Lymph % (Auto) 7.3 L Slope % (Auto) 5.8 Eos % (Auto) 0.0 L Baso % (Auto) 0.1 Neut # (Auto) 94365 H Lymph # (Auto) 1000 L Slope # (Auto) 800 Eos # (Auto) 0 Baso # (Auto) 0 PT 45.1 H D INR 3.8 H Sodium 134 L Potassium 4.8 Chloride 99 Carbon Dioxide 31 BUN 27 H Creatinine 0.80 Estimated GFR > 60.0 BUN/Creatinine Ratio 33.8 H Glucose 110 Calcium 8.6 Discharge Plan Discharge Plan Patient Disposition: Home Discharge Med Rec/Prescriptions Prescriptions: New metoprolol succinate 50 mg Tablet Extended Release 24 Hr 50 mg PO BID Qty: 60 RF: 3 prednisone 20 mg Tablet See Rx Instructions .ROUTE .COMPLEX Qty: 8 RF: 0 ciprofloxacin HCl 250 mg tablet 250 mg PO BID Qty: 8 RF: 0 Continued cholecalciferol (vitamin D3) [Vitamin D3] 1,000 UNIT tablet 2,000 units PO DAILY Qty: 0 RF: 0 Spiriva with HandiHaler 18 mcg capsule, w/inhalation device 1 cap INHALATION DAILY Qty: 30 RF: 0 warfarin [Coumadin] 2 mg tablet 2 mg PO SUMOWETHFR RF: 0 warfarin [Coumadin] 2 mg tablet 1 mg PO TU RF: 0 calcium carbonate-vitamin D3 [Calcium 600 + D(3)] 600 mg(1,500mg) -200 unit Tablet 2 tab PO DAILY RF: 0 multivitamin with minerals Tablet 1 tab PO DAILY RF: 0 alendronate [Fosamax] 70 mg tablet 70 mg PO MATA RF: 0 Discontinued metoprolol tartrate 25 mg tablet 12.5 mg PO BID Qty: 30 RF: 11 Follow up/Referrals: Rosio Puckett MD [Primary Care Provider] - 1 Week (patient to call on Saturday06/30/18 to make appointment) Provider Discharge Instructions Diet: Diet as Tolerated Discharge Data Primary Care Provider: Rosio Puckett Attending Provider: Rosio Puckett Admit Date/Time: 06/25/18 19:35
--- NOTE | 2018-06-28 13:45 | CM.DPC ---
Addendum entered by Shira Gatica LPN 06/28/18 13:50: MARGE # 1 was signed on 06/26 1030. DC order written this morning. Pt agreeable to the d/c for today. [facility] to [facility] to process and scan Thursday 06/29. Original Note: DCP: continued: Case discussed in Team Rounds with RN Emily noting that pt was exepcted to d/c home today. Pt now with an order from Dr. Toney for. d/c home and clinic followup in a week. PT did see her yesterday and she was cleared for d/c from a mobility standpoint.
== END 2018-06-28 11:10 | disposition home or self-care (01) | DRG 308 ==
LOC: ED 18:47 → ICU 06-26 06:50
PROVIDERS: Admitting Provider Family Medicine; Emergency Provider Emergency Medicine; Family Provider Family Medicine; PCP Family Medicine; Visit Provider Family Medicine
DX: I48.91 Unspecified atrial fibrillation (principal); J96.01 Acute respiratory failure with hypoxia; N30.00 Acute cystitis without hematuria; J44.1 Chronic obstructive pulmonary disease with (acute) exacerbation; D50.9 Iron deficiency anemia, unspecified; Z90.2 Acquired absence of lung [part of]; Z85.42 Personal history of malignant neoplasm of other parts of uterus; Z85.118 Personal history of other malignant neoplasm of bronchus and lung; I10 Essential (primary) hypertension; D64.9 Anemia, unspecified; R42 Dizziness and giddiness; R53.83 Other fatigue; M79.89 Other specified soft tissue disorders
CPT/HCPCS: 36415; 36591; 36600; 51701; 71045; 71046; 80048; 80053; 80061; 81001; 82550; 82553; 82607; 82728; 82746; 82805; 83540; 83550; 83605; 83735; 83880; 84145; 84484; 85025; 85610; 85730; 86850; 86900; 86901; 87040; 87077; 87086; 87186; 93005; 93010; 93041; 93306; 93970; 94640; 94760; 96365; 96375; 96376; 97116; 97161; 97530; 99223; 99232; 99238; 99285; J0153; J1940; J2920; J2930; J7613

== ENCOUNTER 2018-07-24 06:48 | Day surgery (SDC) | payer MEDICARE, BC, SELFPAY ==
[2018-07-14 10:27] VITALS: BMI 19.1
[2018-07-24] VITALS (10 sets, daily range): BP systolic 88–165; BP diastolic 45–85; PULSE 50–69; RESP 12–17; TEMP 36.4–37.2; O2SAT 94–98; BMI 18.5
--- NOTE | 2018-07-24 | PATH_ITS ---
[facility] Accession Number: [id number] . 01 Material submitted: . PART A: colon - SIGMOID COLON SMALL SESSILE POLYP PART B: rectum - DISTAL RECTAL POLYP . 02 Diagnosis: A. Sigmoid Colon, Small Sessile Polyp: Colonic mucosa with features of mucosal prolapse. Negative for serrated lesion, dysplasia or malignancy. . B. Distal Rectum, Polyp: Tubular adenoma. MRV/07/25/2018 . 02 Electronically signed: . Bert Saeed MD, PhD, Pathologist NPI- [id number] . 01 Gross description: . Part A: SIGMOID COLON SMALL SESSILE POLYP: Received in formalin are 2 fragment(s) of roa, soft tissue measuring 0.1 x 0.1 x 0.1 cm to 0.3 x 0.3 x 0.2 cm which is entirely submitted and submitted entirely in 1 cassette(s) Part B: DISTAL RECTAL POLYP: Received in formalin are 2 fragment(s) of roa, soft tissue measuring 0.2 x 0.2 x 0.2 cm to 0.3 x 0.2 x 0.2 cm which is entirely submitted and submitted entirely in 1 cassette(s) /DMC /DMC . 02 Pathologist provided ICD-10: D12.8, K63.5 . 02 CPT . 620719, 863242 Performed at: 01 [facility] [address] [place] [address], [place], [place] [id number] MD Bry Rodriguez MD Phone: [phone] Performed at: 02 [facility] [address] [place], [place] [id number] MD Lynnette Dinh MD Phone: [phone]
--- NOTE | 2018-07-24 07:29 | PM.HP.1 ---
History of Present Illness Date Patient Seen: 07/24/18 Time Patient Seen: 07:29 Chief complaint: [id number] COLONOSCOPY W/INTERNAL HEM BINDING Narrative: Pt seen and examened unchanged since H and P 07/14/18 Plan for diagnostic colonoscopy and possible internal hemorrhoidal banding Patient History Family & Social History Social History: household members none lives independently Yes Tobacco & Substance use: Smoking Status Former smoker alcohol intake current alcohol intake frequency holiday/special occasion Substance Use Type does not use Meds Home Medications Medication Instructions Recorded Confirmed Type cholecalciferol (vitamin D3) 2,000 units PO DAILY #0 06/19/16 07/14/18 History [Vitamin D3] warfarin 2 mg tablet 2 mg PO SUMOWETHFRSA tab 12/03/17 07/24/18 History alendronate [Fosamax] 70 mg PO MATA 06/24/18 07/24/18 History calcium carbonate-vitamin D3 2 tab PO DAILY 06/24/18 07/14/18 History [Calcium 600 + D(3)] multivitamin with minerals 1 tab PO DAILY 06/24/18 07/14/18 History warfarin [Coumadin] 1 mg PO TU 06/24/18 07/14/18 History metoprolol succinate 50 mg PO BID #60 tab 06/28/18 07/14/18 Rx tiotropium bromide 18 mcg capsule 1 cap INHALATION DAILY #30 07/02/18 07/24/18 Rx with inhalation device inhalation tiotropium bromide 18 mcg capsule 1 cap INHALATION DAILY 07/14/18 07/14/18 History with inhalation device Allergies Allergy/AdvReac Type Severity Reaction Status Date / Time No Known Drug Allergies Allergy Verified 07/08/18 10:36
[2018-07-24] MEDS: SODIUM CHLORIDE 0.9% 1,000 ML 200 ML IV ×2 (07:34→09:47)
[2018-07-24] MEDS: fentaNYL 250 MCG/5 ML INJ IV (09:13)
[2018-07-24] MEDS: MIDAZOLAM 5 MG/5 ML VIAL IV (09:13)
[2018-07-24] MEDS: BUPIVACAINE 0.5% W/ EPI (PF) VIAL 30 ML INJ (09:43)
[2018-07-24] MEDS: DIBUCAINE 1% OINT 28 GM 1 APPLIC TOP (09:54)
--- NOTE | 2018-07-24 10:29 | P.OP.ENDO_ITS ---
Operative Date/Time/Diagnoses Date of procedure: 07/24/18 Time of procedure: 10:19 Pre-op diagnosis: rectal bleeding Post-op diagnosis: other (hx of rectal bleeding, marked sigmoid diverticulosis, sigmoid sessile polyp small, distal rectal polyp s/p excision ) Procedure & Clinicians Study performed: 1) Diagnostic colonoscopy 2) sigmoid polypectomy cold x1 3) distal rectal polypectomy cold x1 4) Figure of 8 suture control of site of distal rectal polyp Same procedure as scheduled: No Indications: 77 yo woman with episode of rectal bleeding on anticoagulation. Last colonoscopy ~ 5yrs ago Surgeon: Eddie Scmhid Procedure Notes SCOAP/Timeout: completed Procedure in detail: Patient was taken to the endoscopy suite, a time-out was completed. She was sedated with a small amount of fentanyl and midazolam given her size and history of pneumonectomy. A digital rectal exam was performed which did not identify any masses within the anal canal. 160 cm adult colonoscope was introduced and passed up through the rectum into the rectosigmoid junction fairly shortly thereafter there were tight turns in her distal sigmoid colon that could not be well navigated. We switched out to a pediatric colonoscope and with some difficulty we were able to negotiate several tight turns in her sigmoid colon. Able to pass the scope then up through the left colon through the triangular folds of the transverse colon and into the right colon. The ileocecal valve was readily identified as was the appendiceal orifice in the cecum and necrosis foot. We then began to withdraw the scope slowly with the scope withdrawal time greater than 14 minutes. She was found to have some significant sigmoid diverticulosis, a small polyp within the sigmoid was easily removed with biopsy forceps. Upon withdrawing through the rectum th ere were no additional lesions however given the scope was retroflexed approximately a cm proximal to her dentate line on the anterior aspect of the rectum there was a notable polyp -this was removed with cold biopsy forceps. It subsequently bled. Cautery was used on the area with some improvement but not convincing hemostasis. Given the patient's history of anticoagulation -she had stopped her warfarin 5 days prior -I wanted to obtain definitive hemostasis. As a consequence a rectal trait was brought into the room using a Pathak retractor I was easily able to see the site of bleeding on the anterior distal rectal wall. This was readily controlled with 2 [id number] 0 Vicryl sutures. I watched the site for several minutes post to confirm hemostasis. A rolled Gelfoam pad was then inserted into the anal canal to continue to provide a small amount of pressure. S using a Pathak retractor and excellent lighting I repeated her rectal exam closely inspecting the left lateral hemorrhoidal column that was seen to be somewhat enlarged in clinic -with improved lytes and instrumentation it did not appear to be pathologically enlarged. As a consequence it was not banded. Prep was excellent Scope withdrawal time: 14 Sedation minutes: 46 Findings: diverticulosis and polyp Impression: 1. Significant sigmoid diverticulosis 2. Sigmoid polyp status post excision 3. Distal rectal polyp status post excision -possibly source of prior bleeding Recommendations: Colonscopy in 5 years Plan for aftercare: pacu and then home Follow up: as needed Disposition: PACU
--- NOTE | 2018-07-24 11:08 | SUR.PHASEII ---
1045 pt resting, waiting to see dr. lópez, no co's no pain
== END 2018-07-24 11:40 | disposition home or self-care (01) ==
PROVIDERS: Family Provider Family Medicine; PCP Family Medicine; Visit Provider Surgery
PROC: 0DJD8ZZ Inspection of Lower Intestinal Tract, Via Natural or Artificial Opening Endoscopic (ICD-10-PCS; CPT 45378; principal; 2018-07-24 07:45)
DX: K62.5 Hemorrhage of anus and rectum (principal); K57.30 Diverticulosis of large intestine without perforation or abscess without bleeding; D12.5 Benign neoplasm of sigmoid colon; Z79.01 Long term (current) use of anticoagulants; K64.8 Other hemorrhoids; Z87.891 Personal history of nicotine dependence; D12.8 Benign neoplasm of rectum
CPT/HCPCS: 45380; 45382; 88305; 99152; 99153; J2250; J3010

== ENCOUNTER → 2018-08-06 13:53 | Outpatient (CLI) | payer MEDICARE, BC, SELFPAY ==
[2018-07-14 10:27] VITALS: BMI 19.1
[2018-08-06 14:39] LABS: Add Manual Diff / Slide Review NO; Basophils Absolute Auto 0 /uL (0-100); Basophils Percent Auto 0.3 % (0-2); Eosinophils Absolute Auto 0 /uL (0-450); Eosinophils Percent Auto 0.2 % (2-4); Hematocrit 33.2 % (36-46); Hemoglobin 10.6 g/dL (12.0-16.0); Lymphocytes Absolute Auto 1300 /uL (1100-4500); Lymphocytes Percent Auto 14.3 % (25-40); Mean Corpuscular HGB Conc 31.9 % (30-36); Mean Corpuscular Hemoglobin 26.1 PG (26-34); Monocytes Absolute Auto 800 /uL (0-900); Monocytes Percent Auto 9.4 % (3-14); Neutrophils Absolute Auto 6700 /uL (1500-7000); Neutrophils Percent Auto 75.8 % (50-75); Platelet Count 328 X10^3/uL (150-400); Red Blood Cell Count 4.04 X10^6/uL (4.0-5.2); Red Cell Distribution Width 15.3 % (11.6-14.8); White Blood Cell Count 8.8 X10^3/uL (4.5-11.0)
[2018-08-06 14:50] LABS: Blood Urea Nitrogen 21 mg/dL (7-17); Calcium 9.6 mg/dL (8.4-10.2); Carbon Dioxide 33 mmol/L (22-32); Chloride 99 mmol/L (98-107); Estimated Glomerular Filt Rate > 60.0 mL/min (>60); Glucose 100 mg/dL (80-110); HEMOLYSIS < 15 (0-50); Potassium 3.6 mmol/L (3.4-5.1); Sodium 138 mmol/L (137-145)
== END ==
PROVIDERS: Family Provider Family Medicine; PCP Family Medicine; Visit Provider Hospitalist
DX: K92.2 Gastrointestinal hemorrhage, unspecified (principal); I50.9 Heart failure, unspecified
CPT/HCPCS: 36415; 80048; 85025

== ENCOUNTER → 2018-08-28 14:32 | Outpatient (CLI) | payer MEDICARE, BC, SELFPAY ==
[2018-07-14 10:27] VITALS: BMI 19.1
[2018-08-28 15:56] LABS: BUN Creatinine Ratio 28.6 (6-22); Blood Urea Nitrogen 20 mg/dL (7-17); Calcium 9.6 mg/dL (8.4-10.2); Carbon Dioxide 33 mmol/L (22-32); Chloride 100 mmol/L (98-107); Estimated Glomerular Filt Rate > 60.0 mL/min (>60); Glucose 86 mg/dL (80-110); HEMOLYSIS < 15 (0-50); Potassium 4.1 mmol/L (3.4-5.1); Sodium 139 mmol/L (137-145)
== END ==
PROVIDERS: Family Provider Family Medicine; PCP Family Medicine; Visit Provider Hospitalist
DX: I50.9 Heart failure, unspecified (principal)
CPT/HCPCS: 36415; 80048

== ENCOUNTER 2018-09-09 14:46 | Emergency (ER) | payer MEDICARE, BC, SELFPAY ==
[2018-07-14 10:27] VITALS: BMI 19.1
[2018-09-09 14:51] VITALS: BP 133/77; PULSE 84; RESP 20; TEMP 37; O2SAT 99; BMI 19.3
--- NOTE | 2018-09-09 15:17 | DI.RAD.S_ITS ---
PROCEDURE: XR CHEST 2V INDICATIONS: fell 4 days, now with shortness of breath, pain with movement TECHNIQUE: 2 views of the chest were acquired. COMPARISON: [facility], CR, XR CHEST 1V, 06/25/2018, 16:44. FINDINGS: Surgical changes and devices: The surgical clips are seen within the right lung apex region. Lungs and pleura: Complete opacification of the right hemithorax is again identified with prominent deviation of the trachea, likely related to previous pneumonectomy. Aeration of the left lung is within normal limits. Minimal scarring versus atelectasis at the left costophrenic angle is present. No focal consolidation is identified. There is no effusion or definite pneumothorax. Mediastinum: Mediastinal contours are normal. Heart size is normal. Bones and chest wall: No suspicious bony abnormalities. Soft tissues appear unremarkable. IMPRESSION: Stable chest. No acute cardiopulmonary process is evident. Dictated by: Power Alonzo M.D. on 09/09/2018 at 15:14 Approved by: Power Alonzo M.D. on 09/09/2018 at 15:16
[2018-09-09 16:00] VITALS: BP 142/80; PULSE 92; RESP 19; TEMP 36.4; O2SAT 100
[2018-09-09 16:43] LABS: INR 2.2 (0.9-1.3); Prothrombin Time 26.3 SECONDS (10.1-12.7)
[2018-09-09 16:46] LABS: PTT Partial Thromboplastin Tim 45 SECONDS (26.4-36.2)
[2018-09-09 16:48] LABS: Alanine Aminotransferase 23 IU/L (9-52); Albumin 4.2 g/dL (3.5-5.0); Albumin Globulin Ratio 1.4 (1.0-2.8); Alkaline Phosphatase 65 U/L (38-126); Aspartate Aminotransferase 53 IU/L (14-36); BUN Creatinine Ratio 31.4 (6-22); Bilirubin Total 0.8 mg/dL (0.2-1.3); Blood Urea Nitrogen 22 mg/dL (7-17); Calcium 9.5 mg/dL (8.4-10.2); Carbon Dioxide 31 mmol/L (22-32); Chloride 99 mmol/L (98-107); Creatine Kinase 67 U/L (30-135); Estimated Glomerular Filt Rate > 60.0 mL/min (>60); Globulin 2.9 g/dL (1.7-4.1); Glucose 103 mg/dL (80-110); HEMOLYSIS 46 (0-50); Lipase 74 U/L (23-300); Potassium 3.9 mmol/L (3.4-5.1); Sodium 139 mmol/L (137-145); Total Protein 7.1 g/dL (6.3-8.2)
[2018-09-09 16:52] LABS: Add Manual Diff / Slide Review NO; Basophils Absolute Auto 0 /uL (0-100); Basophils Percent Auto 0.3 % (0-2); Eosinophils Absolute Auto 0 /uL (0-450); Eosinophils Percent Auto 0.7 % (2-4); Hematocrit 33.3 % (36-46); Hemoglobin 10.7 g/dL (12.0-16.0); Lymphocytes Absolute Auto 1200 /uL (1100-4500); Lymphocytes Percent Auto 17.8 % (25-40); Mean Corpuscular HGB Conc 32.3 % (30-36); Mean Corpuscular Hemoglobin 24.7 PG (26-34); Mean Corpuscular Volume 76.4 fL (80-100); Monocytes Absolute Auto 800 /uL (0-900); Monocytes Percent Auto 12.1 % (3-14); Neutrophils Absolute Auto 4700 /uL (1500-7000); Neutrophils Percent Auto 69.1 % (50-75); Platelet Count 305 X10^3/uL (150-400); Red Blood Cell Count 4.35 X10^6/uL (4.0-5.2); Red Cell Distribution Width 16.4 % (11.6-14.8); White Blood Cell Count 6.8 X10^3/uL (4.5-11.0)
[2018-09-09 17:00] LABS: Troponin I < 0.012 ng/mL (0.01-0.034)
[2018-09-09 17:16] LABS: B Type Natriuretic Peptide 287 (<100)
--- NOTE | 2018-09-09 17:21 | ED_ITS ---
HPI - URI/Sore Throat General Chief Complaint: Upper Respiratory Symptoms Stated Complaint: Tripped fell Saturday lf side - trouble breathing Time Seen by Provider: 09/09/18 16:09 Source: patient Mode of arrival: ambulatory Limitations: no limitations History of Present Illness HPI Narrative: Patient comes to the emergency department complaining of left chest wall pain and shortness of breath since taking a fall 4 days ago. Patient states that she tripped and fell and that she landed on her left ribs. She states that since then, she has had a pain in that area of her left ribcage, and that hurts to take a deep breath. Patient states this is making it so that she gets short of breath when she exerts herself and needs to breathe harder, such as when she walks her dog. Patient states that she was not hurt in any other way other than a mild blunt injury to the face, which has left some bruising. Patient did not lose consciousness. She has not had any neck or back pain that is new. No abdominal pain. No chest pain other than the sore ribs on the left. Patient states she has chronic atrial fibrillation and congestive heart failure, which seem to be at baseline. No other complaints at this time. Patient does note that she had a right pneumonectomy back in 2007 for lung cancer. Related Data Home Medications Medication Instructions Recorded Confirmed cholecalciferol (vitamin D3) 2,000 units PO DAILY #0 06/19/16 09/09/18 [Vitamin D3] warfarin 2 mg tablet 2 mg PO SUMOWETHFRSA tab 12/03/17 09/09/18 alendronate [Fosamax] 70 mg PO MATA 06/24/18 09/09/18 calcium carbonate-vitamin D3 2 tab PO DAILY 06/24/18 09/09/18 [Calcium 600 + D(3)] multivitamin with minerals 1 tab PO DAILY 06/24/18 09/09/18 warfarin [Coumadin] 1 mg PO TU 06/24/18 09/09/18 furosemide [Lasix] 20 mg PO MOWEFR 09/09/18 09/09/18 Previous Rx's Medication Instructions Recorded metoprolol succinate 50 mg PO BID #60 tab 06/28/18 tiotropium bromide 18 mcg capsule 1 cap INHALATION DAILY #30 07/29/18 with inhalation device inhalation albuterol sulfate HFA 90 1 puff INHALATION Q4-6H PRN #18 08/29/18 mcg/actuation aerosol inhaler gram hydrocodone-acetaminophen 1 tab PO Q6H PRN #10 tab 09/09/18 Allergies Allergy/AdvReac Type Severity Reaction Status Date / Time No Known Drug Allergies Allergy Verified 09/09/18 15:16 Review of Systems Constitutional Denies chills, Denies fever(s), Denies lethargy and Denies weakness Eyes Denies change in vision, Denies eye discharge, Denies irritation and Denies loss of vision ENT Ears, Nose, Mouth, and Throat: Denies change in voice, Denies neck pain and Denies sore throat Cardiovascular Denies irregular heart rhythm, Denies lightheadedness, Denies palpitations, Reports dyspnea, Reports dyspnea on exertion and Denies orthopnea Comments: Chest wall pain Respiratory Denies cough, Reports dyspnea, Reports dyspnea on exertion and Denies wheezing Gastrointestinal Gastrointestinal: Denies abdominal pain, Denies change in bowel habits, Denies diarrhea, Denies nausea and Denies vomiting Genitourinary Denies hematuria, Denies flank pain, Denies urinary incontinence and Denies urinary urgency Musculoskeletal Denies neck pain Integumentary/Breasts Denies pruritus, Denies erythema, Denies rash and Denies wounds Neurologic Denies confusion, Denies loss of vision and Denies weakness Psychiatric Denies anxiety, Denies confusion, Denies depression, Denies homicidal ideation and Denies suicidal ideation Endocrine Denies palpitations Hematologic/Lymphatic Denies easy bruising Allergic/Immunologic Denies wheezing PFSH Medical History Hypertension (Chronic) Osteoarthritis (Chronic) Osteoporosis (Chronic 2015) Atrial fibrillation (Resolved 2013) Lung cancer (Resolved 2006) Ovarian cancer (Resolved 1994) Uterine cancer (Resolved 1994) Surgical History Anesthesia (Resolved) History of breast augmentation (Resolved 1992) History of hip replacement (Resolved 01/2013) History of oophorectomy (Resolved 1994) History of pneumonectomy (Resolved 05/2007) Status post hysterectomy (Resolved 1994) History of bilateral salpingo-oophorectomy (BSO) Family History Father Hypertension Prostate cancer Grandfather Stroke Grandmother Diabetes mellitus Mother Diabetes mellitus, type II Hypertension Stroke Grandfather No problems noted. Grandmother No problems noted. Social History marital status: unmarried,single household members: none lives independently: Yes pets and animals: Yes education level: college occupational status: other Smoking Status: Former smoker alcohol intake: current substance use type: does not use Family History Father Hypertension Prostate cancer Grandfather Stroke Grandmother Diabetes mellitus Mother Diabetes mellitus, type II Hypertension Stroke Grandfather No problems noted. Grandmother No problems noted. Social History marital status: unmarried,single household members: none lives independently: Yes pets and animals: Yes education level: college occupational status: other Smoking Status: Former smoker alcohol intake: current substance use type: does not use Exam Initial Vital Signs Initial Vital Signs: Vital Signs Temperature 98.6 F 09/09/18 14:51 Pulse Rate 84 09/09/18 14:51 Respiratory Rate 20 09/09/18 14:51 Blood Pressure 133/77 09/09/18 14:51 Pulse Oximetry 99 09/09/18 14:51 Const General: cooperative and well developed Nutritional Appearance: well nourished Orientation: alert, awake, oriented x3 and not confused HENKS Head: normocephalic and atraumatic Ears: external ears normal and TM's normal bilaterally Nose: external nose normal and No nasal discharge Face and sinus: sinuses nontender, face symmetric, no sinus tenderness and No dry mucous membranes Mouth: oral mucosae normal and moist mucous membranes Teeth and gingiva: dentition normal Eyes General: appearance normal, both eyes and all related structures Eyelids: eyelids normal Conjunctivae: conjunctivae normal Sclera: sclerae normal Pupils: PERRL EOM: EOM intact bilaterally Neck Neck: normal visual inspection, trachea midline, No lymphadenopathy, No midline deformity and No JVD Lymphatic: No lymphedema Chest Other: Patient has mild tenderness over her left lateral rib cage over ribs 9 and 10, approximately. No step-off or crepitus is noted. Resp Effort & Inspection: normal respiratory effort, able to speak in complete sentences, no respiratory distress and no use of accessory muscles Auscultation: no rales, no rhonchi and no wheezes Other: Patient's left lung is clear to auscultation. Cardio Rate: regular rate Rhythm: regular rhythm Heart Sounds: no click, no gallops, no murmurs and no rubs Pulses: normal peripheral pulses GI Inspection: non-distended Palpation: soft, no hepatosplenomegaly, No guarding, No pulsatile mass and No tender Auscultation: normal bowel sounds Back/Spine/Pelvis Back: No CVA tenderness Cervical Spine: cervical ROM normal and No pain with cervical ROM Thoracic/Lumbar Spine: thoracic and lumbar spine normal to inspection Skin General: no rashes or lesions noted, No jaundice and No petechiae Neuro General: alert, oriented x3, gait normal and no focal motor deficits Speech: speech normal Extrem General: full ROM, no clubbing, cyanosis or edema, no pedal edema and no calf tenderness Psych Appearance: well kempt Mental Status: mental status grossly normal Attitude: cooperative Thought Content: normal and suicidality Judgment: judgment good Course Course Narrative: Patient was worked up with labs, EKG, and chest x-ray knee ago. Chest x-ray showed no rib fractures. EKG showed rate-controlled atrial fibrillation. Laboratory studies were unremarkable. BNP was elevated at 287, which was not surprising, considered the patient's CHF history; however, the chest x-ray did not show evidence of acute CHF exacerbation. I felt the patient was stable for discharge home. We have discussed the need for some pain control for her rib pain, so the patient can breathe little bit better. We have discussed the usual indications for return. Orders Ordered: ED Orders 09/09/18 15:17 CXR [XR chest 2V] Stat 09/09/18 16:05 BNP [B Type Natriuretic Peptide] Stat Complete Blood Count AUTO DIFF Stat Comprehensive Metabolic Panel Stat Lipase Stat Partial Thromboplastin Time Stat Prothrombin Time INR Stat Troponin & CK Cardiac Panel Stat 09/09/18 16:21 EKG-12 Lead Stat Discontinued Medications Ketorolac Tromethamine (Toradol) 15 mg IV NOW ONE Stop: 09/09/18 17:17 Last Admin: 09/09/18 17:59 Dose: 15 mg Vital Signs - 8 hr 09/09/18 14:51 09/09/18 16:00 09/09/18 18:07 Temperature 98.6 F 97.6 F Pulse Rate 84 92 H 81 Respiratory Rate 20 19 19 Blood Pressure 133/77 Blood Pressure [Left Arm] 142/80 H 172/89 H Pulse Oximetry 99 100 97 MDM - URI/Sore Throat Medical Records Attestation: I reviewed the patient's medical records. Lab Data Attestation: I reviewed the patient's lab results. Result diagrams: 09/09/18 16:05 09/09/18 16:05 Lab Results 09/09/18 09/09/18 09/09/18 Range/Units 16:05 16:05 16:05 WBC 6.8 (4.5-11.0) X10^3/uL RBC 4.35 (4.0-5.2) X10^6/uL Hgb 10.7 L (12.0-16.0) g/dL Hct 33.3 L (36-46) % MCV 76.4 L (80-100) fL MCH 24.7 L (26-34) PG MCHC 32.3 (30-36) % RDW 16.4 H (11.6-14.8) % Plt Count 305 (150-400) X10^3/uL Neut % (Auto) 69.1 (50-75) % Lymph % (Auto) 17.8 L (25-40) % [place] % (Auto) 12.1 (3-14) % Eos % (Auto) 0.7 L (2-4) % Baso % (Auto) 0.3 (0-2) % Neut # (Auto) 4700 (2004-0984) /uL Lymph # (Auto) 1200 (7380-7266) /uL [place] # (Auto) 800 (0-900) /uL Eos # (Auto) 0 (0-450) /uL Baso # (Auto) 0 (0-100) /uL PT 26.3 H (10.1-12.7) SECONDS INR 2.2 H (0.9-1.3) APTT 45 H D (26.4-36.2) SECONDS Sodium 139 (137-145) mmol/L Potassium 3.9 (3.4-5.1) mmol/L Chloride 99 (98-107) mmol/L Carbon Dioxide 31 (22-32) mmol/L BUN 22 H (7-17) mg/dL Creatinine 0.70 (0.52-1.04) mg/dL Estimated GFR > 60.0 (>60) mL/min BUN/Creatinine Ratio 31.4 H (6-22) Glucose 103 (80-110) mg/dL Calcium 9.5 (8.4-10.2) mg/dL Total Bilirubin 0.8 (0.2-1.3) mg/dL AST 53 H (14-36) IU/L ALT 23 (9-52) IU/L Alkaline Phosphatase 65 (38-126) U/L Total Creatine Kinase 67 (30-135) U/L CK-MB (CK-2) TNP CK-MB (CK-2) Rel Index TNP Troponin I < 0.012 (0.01-0.034) ng/mL B-Natriuretic Peptide (<100) Total Protein 7.1 (6.3-8.2) g/dL Albumin 4.2 (3.5-5.0) g/dL Globulin 2.9 (1.7-4.1) g/dL Albumin/Globulin Ratio 1.4 (1.0-2.8) Lipase 74 (23-300) U/L 09/09/18 Range/Units 16:05 WBC (4.5-11.0) X10^3/uL RBC (4.0-5.2) X10^6/uL Hgb (12.0-16.0) g/dL Hct (36-46) % MCV (80-100) fL MCH (26-34) PG MCHC (30-36) % RDW (11.6-14.8) % Plt Count (150-400) X10^3/uL Neut % (Auto) (50-75) % Lymph % (Auto) (25-40) % [place] % (Auto) (3-14) % Eos % (Auto) (2-4) % Baso % (Auto) (0-2) % Neut # (Auto) (6367-5700) /uL Lymph # (Auto) (4985-5297) /uL [place] # (Auto) (0-900) /uL Eos # (Auto) (0-450) /uL Baso # (Auto) (0-100) /uL PT (10.1-12.7) SECONDS INR (0.9-1.3) APTT (26.4-36.2) SECONDS Sodium (137-145) mmol/L Potassium (3.4-5.1) mmol/L Chloride (98-107) mmol/L Carbon Dioxide (22-32) mmol/L BUN (7-17) mg/dL Creatinine (0.52-1.04) mg/dL Estimated GFR (>60) mL/min BUN/Creatinine Ratio (6-22) Glucose (80-110) mg/dL Calcium (8.4-10.2) mg/dL Total Bilirubin (0.2-1.3) mg/dL AST (14-36) IU/L ALT (9-52) IU/L Alkaline Phosphatase (38-126) U/L Total Creatine Kinase (30-135) U/L CK-MB (CK-2) CK-MB (CK-2) Rel Index Troponin I (0.01-0.034) ng/mL B-Natriuretic Peptide 287 H (<100) Total Protein (6.3-8.2) g/dL Albumin (3.5-5.0) g/dL Globulin (1.7-4.1) g/dL Albumin/Globulin Ratio (1.0-2.8) Lipase (23-300) U/L Imaging Data Chest x-ray: Radiologist's impression: PROCEDURE: XR CHEST 2V INDICATIONS: fell 4 days, now with shortness of breath, pain with movement TECHNIQUE: 2 views of the chest were acquired. COMPARISON: [facility], , XR CHEST 1V, 06/25/2018, 16:44. FINDINGS: Surgical changes and devices: The surgical clips are seen within the right lung apex region. Lungs and pleura: Complete opacification of the right hemithorax is again identified with prominent deviation of the trachea, likely related to previous pneumonectomy. Aeration of the left lung is within normal limits. Minimal scarring versus atelectasis at the left costophrenic angle is present. No focal consolidation is identified. There is no effusion or definite pneumothorax. Mediastinum: Mediastinal contours are normal. Heart size is normal. Bones and chest wall: No suspicious bony abnormalities. Soft tissues appear unremarkable. IMPRESSION: Stable chest. No acute cardiopulmonary process is evident. Dictated by: Power Alonzo M.D. on 09/09/2018 at 15:14 Approved by: Power Alonzo M.D. on 09/09/2018 at 15:16 ECG Data Attestation: I personally reviewed and interpreted this ECG as follows: (See below) Interpretation: Twelve lead EKG performed September 09 2018, at 4:21 p.m., as follows: Irregular ventricular rhythm with a rate of 83 beats per minute P waves not detected QRS duration 101 millisecond QTC Interval [address] T wave changes Interpretation: Atrial fibrillation; marked left axis deviation; pattern consistent with pulmonary disease; moderate ST depression; abnormal EKG as interpreted by ED MD. Discharge Plan Departure Patient Disposition: Home Clinical Impression: Contusion of rib on left side Qualifiers: Encounter type: initial encounter Qualified Code(s): S20.212A - Contusion of left front wall of thorax, initial encounter CHF (congestive heart failure) Qualifiers: Heart failure type: unspecified Heart failure chronicity: chronic Qualified Code(s): I50.9 - Heart failure, unspecified Discharge Date/Time: 09/09/18 18:42 Instructions: DI for Rib Contusion Activity Restrictions/Additional Instructions: Your x-ray looks good. There is no evidence of a punctured lung or fluid in your lung spaces. No broken ribs are visualized, either. Most likely, you have bruised your chest wall, which is making it painful and difficult to take a deep breath. As such, you should take a small dose of pain medicine to help with this, until your symptoms improve. Please be sure you are taking deep breaths regularly to keep your lungs aerated and prevent pneumonia. Prescriptions: New hydrocodone-acetaminophen 2.5-325 mg tablet 1 tab PO Q6H PRN (Reason: pain) Qty: 10 RF: 0 No Action cholecalciferol (vitamin D3) [Vitamin D3] 1,000 UNIT tablet 2,000 units PO DAILY Qty: 0 RF: 0 Spiriva with HandiHaler 18 mcg capsule, w/inhalation device 1 cap INHALATION DAILY Qty: 30 RF: 5 albuterol sulfate [Ventolin HFA] 90 mcg/actuation HFA aerosol inhaler 1 puff INHALATION Q4-6H PRN (Reason: shortness of breath) Qty: 18 RF: 0 warfarin [Coumadin] 2 mg tablet 2 mg PO RF: 0 warfarin [Coumadin] 2 mg tablet 1 mg PO RF: 0 calcium carbonate-vitamin D3 [Calcium 600 + D(3)] 600 mg(1,500mg) -200 unit Tablet 2 tab PO DAILY RF: 0 multivitamin with minerals Tablet 1 tab PO DAILY RF: 0 alendronate [Fosamax] 70 mg tablet 70 mg PO MATA RF: 0 metoprolol succinate 50 mg Tablet Extended Release 24 Hr 50 mg PO BID Qty: 60 RF: 3 furosemide [Lasix] 20 mg tablet 20 mg PO RF: 0 Referrals: Rosio Puckett MD [Primary Care Provider] -
[2018-09-09] MEDS: KETOROLAC 60 MG/2 ML VIAL 15 MG IV (17:59)
[2018-09-09 18:07] VITALS: BP 172/89; PULSE 81; RESP 19; O2SAT 97
== END 2018-09-09 18:42 | disposition home or self-care (01) ==
PROVIDERS: Emergency Provider Emergency Medicine; Family Provider Family Medicine; PCP Family Medicine
DX: S20.212A Contusion of left front wall of thorax, initial encounter (principal); I50.9 Heart failure, unspecified; W01.0XXA Fall on same level from slipping, tripping and stumbling without subsequent striking against object, initial encounter
CPT/HCPCS: 36591; 71046; 80053; 82550; 83690; 83880; 84484; 85025; 85610; 85730; 93005; 93010; 96374; 99283; 99285; J1885

== ENCOUNTER → 2018-09-15 16:22 | Outpatient (CLI) | payer MEDICARE, BC, SELFPAY ==
[2018-07-14 10:27] VITALS: BMI 19.1
[2018-09-15 16:48] LABS: Add Manual Diff / Slide Review NO; Basophils Absolute Auto 0 /uL (0-100); Basophils Percent Auto 0.7 % (0-2); Eosinophils Absolute Auto 100 /uL (0-450); Hemoglobin 9.9 g/dL (12.0-16.0); Lymphocytes Absolute Auto 1300 /uL (1100-4500); Lymphocytes Percent Auto 21.1 % (25-40); Mean Corpuscular HGB Conc 31.8 % (30-36); Mean Corpuscular Hemoglobin 24.1 PG (26-34); Mean Corpuscular Volume 75.6 fL (80-100); Monocytes Absolute Auto 800 /uL (0-900); Monocytes Percent Auto 13.7 % (3-14); Neutrophils Absolute Auto 3900 /uL (1500-7000); Neutrophils Percent Auto 63.5 % (50-75); Platelet Count 339 X10^3/uL (150-400); Red Cell Distribution Width 16.7 % (11.6-14.8); White Blood Cell Count 6.1 X10^3/uL (4.5-11.0)
[2018-09-15 16:58] LABS: INR 2.5 (0.9-1.3); Prothrombin Time 29.4 SECONDS (10.1-12.7)
[2018-09-15 17:52] LABS: Thyroid Stimulating Hormone 1.69 uIU/mL (0.47-4.68)
== END ==
PROVIDERS: Family Provider Family Medicine; PCP Family Medicine; Visit Provider Internal Medicine Cardiovascular Disease
DX: I48.1 Persistent atrial fibrillation (principal); K92.2 Gastrointestinal hemorrhage, unspecified
CPT/HCPCS: 36415; 84443; 85025; 85610

== ENCOUNTER → 2018-10-28 09:19 | Outpatient (CLI) | payer MEDICARE, BC, SELFPAY ==
[2018-09-17 09:16] VITALS: BMI 19.1
[2018-10-21 15:28] VITALS: BMI 19.5
--- NOTE | 2018-10-28 | DI.MG.S_ITS ---
BILATERAL DIGITAL SCREENING MAMMOGRAM 3D/2D WITH CAD: 10/28/2018 CLINICAL: Routine screening. Family history of breast cancer. Comparison is made to exams dated: 10/22/2017 mammogram, 09/18/2016 mammogram, and 08/15/2015 mammogram - [facility]. The tissue of both breasts is heterogeneously dense. This may lower the sensitivity of mammography. Current study was also evaluated with a Computer Aided Detection (CAD) system. There is a benign density in the right breast. No significant masses, calcifications, or other findings are seen in either breast. There has been no significant interval change. IMPRESSION: There is no mammographic evidence of malignancy. A 1 year screening mammogram is recommended. This exam was interpreted at Station ID: [id number]. NOTE: For mammograms, a report in lay terms will be sent to the patient. Approximately 15% of breast malignancies will not be visualized mammographically. In the management of a palpable breast mass, a negative mammogram must not discourage biopsy of a clinically suspicious lesion. Electronically Signed By: Matthew johnson/rowena:10/28/2018 13:11:34 letter sent: Normal Exam ACR BI-RADS Category 2: Benign Finding(s) 3342F
== END ==
PROVIDERS: PCP Family Medicine; Visit Provider Family Medicine
DX: Z12.31 Encounter for screening mammogram for malignant neoplasm of breast (principal); Z80.3 Family history of malignant neoplasm of breast
CPT/HCPCS: 77063; 77067

== ENCOUNTER → 2018-12-29 10:18 | Outpatient (CLI) | payer MEDICARE, BC, SELFPAY ==
[2018-10-21 15:28] VITALS: BMI 19.5
[2018-12-29 10:50] LABS: Add Manual Diff / Slide Review NO; Basophils Absolute Auto 0 /uL (0-100); Basophils Percent Auto 0.7 % (0-2); Eosinophils Absolute Auto 100 /uL (0-450); Eosinophils Percent Auto 1.1 % (2-4); Hematocrit 40.9 % (36-46); Hemoglobin 13.2 g/dL (12.0-16.0); Lymphocytes Absolute Auto 1200 /uL (1100-4500); Mean Corpuscular HGB Conc 32.3 % (30-36); Mean Corpuscular Volume 83.8 fL (80-100); Monocytes Absolute Auto 600 /uL (0-900); Monocytes Percent Auto 12.1 % (3-14); Neutrophils Absolute Auto 3200 /uL (1500-7000); Neutrophils Percent Auto 62.1 % (50-75); Platelet Count 212 X10^3/uL (150-400); Red Blood Cell Count 4.89 X10^6/uL (4.0-5.2); Red Cell Distribution Width 24.1 % (11.6-14.8); White Blood Cell Count 5.1 X10^3/uL (4.5-11.0)
[2018-12-29 11:05] LABS: Anisocytosis 1+
[2018-12-29 11:20] LABS: Alanine Aminotransferase 31 IU/L (9-52); Albumin 4.2 g/dL (3.5-5.0); Albumin Globulin Ratio 1.6 (1.0-2.8); Alkaline Phosphatase 55 U/L (38-126); Aspartate Aminotransferase 36 IU/L (14-36); BUN Creatinine Ratio 38.3 (6-22); Bilirubin Total 0.7 mg/dL (0.2-1.3); Blood Urea Nitrogen 23 mg/dL (7-17); Calcium 10.2 mg/dL (8.4-10.2); Carbon Dioxide 35 mmol/L (22-32); Chloride 96 mmol/L (98-107); Estimated Glomerular Filt Rate > 60.0 mL/min (>60); Globulin 2.7 g/dL (1.7-4.1); Glucose 82 mg/dL (80-110); HEMOLYSIS 18 (0-50); Potassium 4.3 mmol/L (3.4-5.1); Sodium 137 mmol/L (137-145); Total Protein 6.9 g/dL (6.3-8.2)
[2018-12-29 11:50] LABS: Cancer Antigen 125 8 U/mL (0-35)
== END ==
PROVIDERS: PCP Family Medicine; Visit Provider Internal Medicine Hematology & Oncology
DX: D64.9 Anemia, unspecified (principal); J44.9 Chronic obstructive pulmonary disease, unspecified
CPT/HCPCS: 36415; 80053; 85025; 86304; G0424

== ENCOUNTER 2019-01-14 14:00 | Outpatient (RCR) | payer MEDICARE, BC, SELFPAY ==
[2018-09-17 09:16] VITALS: BMI 19.1
[2018-10-21 15:28] VITALS: BP 116/78; BP 120/78; RESP 14; O2SAT 98; BMI 19.5
--- NOTE | 2018-10-21 15:49 | PR.IEVALNOTE ---
Current Diagnoses Chronic obstructive pulmonary disease, unspecified (10/21/18) Past Medical History (Last Reviewed 09/09/18 @ 17:18 by Altagracia Arellano MD) Hypertension (Chronic) Osteoarthritis (Chronic) Osteoporosis (Chronic 2015) Atrial fibrillation (Resolved 2013) Lung cancer (Resolved 2006) Ovarian cancer (Resolved 1994) Uterine cancer (Resolved 1994) Provider Team Visit Care Team Role Provider Type Rosio Puckett MD Attending Provider Physician Primary Care Provider Specialty: [facility] Address: [address] [place] [address], [facility] Email: [email or web address] Pulmonary Rehab Initial Evaluation OK Pulmonary Rehab Inital Assessment Start: 10/21/18 15:25 Freq: Status: Active Protocol: Document 10/21/18 15:28 VU (Rec: 10/21/18 15:47 VU [id number]) OK Exercise Assessment Dx: COPD Comment Hx Pneumonectomy, CHF, A-fib Primary Language POLISH Resin Painter Required No Hearing Ability Normal Visual Impairment No Limitations Visual Difficutly None Visual Assist None Body Alignment Posture Good Posture Assistive Devices None Comment Patient denies barriers to exercise and states she feels she can exercise independently once she becomes comfortable with exercise through participation in Pulmonary Rehab Comment no exercise routine after A- fib Dx, now controlled with successful cardioversion and medication. OK Vital Signs Pulse Oximetry (91-100 %) 98 Nasal Cannula No Respiratory Rate (12-24 breaths/min) 14 Respiratory Effort Non-Labored Respiratory Depth Normal Assessment clear to auscultation good aeration, no wheeze or rhonchi Right Arm Blood Pressure (90/60-140/90 mmHg) 120/78 Blood Pressure Method Manual Cuff/Auscultation Blood Pressure Position Sitting Left Arm Blood Pressure (90/60-140/90 mmHg) 116/78 Blood Pressure Method Manual Cuff/Auscultation Blood Pressure Position Sitting Right Ankle Comment using compression hose OK Six Minute Walk Test Oxygen Delivery Method Room Air Respiratory Rate (breaths/min) 14 Pulse Rate (beats/min) 74 O2 Saturation by Pulse Oximetry (%) 99 Pulse Rate (beats/min) 78 Ambulation Distance (feet) 200 O2 Saturation by Pulse Oximetry (%) 95 Pulse Rate (beats/min) 87 Ambulation Distance (feet) 200 O2 Saturation by Pulse Oximetry (%) 95 Pulse Rate (beats/min) 82 Ambulatory Distance (feet) 150 O2 Saturation by Pulse Oximetry (%) 90 Pulse Rate (beats/min) 76 Ambulation Distance (feet) 200 O2 Saturation by Pulse Oximetry (%) 89 Pulse Rate (beats/min) 82 Ambulation Distance (feet) 100 O2 Saturation by Pulse Oximetry (%) 90 PUlse Rate (beats/min) 88 Ambulation Distance (feet) 250 O2 Saturation by Pulse Oximetry (%) 94 Respiratory Rate (breaths/min) 16 Pulse Rate (beats/min) 68 O2 Saturation by Pulse Oximetry (%) 96 Activity Tolerance Fair Adverse Reactions Increased Shortness of Breath Distance 1100 Azra RPE Scale 12 Oriented to RPE Scale Yes Dyspnea 3 Oriented to Dyspnea Scale Yes OK Exercise Goals Exercise Goals Progression of exercise exercise volume will result from increases in time, intensity, and frequency. Initial emphasis will be on increasing time. Exercise Goals Demonstrates proper technique with pursed lip breathing demonstrates breath sequencing with ADL's, stairs, etc Demonstrates proper technique when using respiratory medications DASI Number and Comment 5.37 Care Home Be able to climb stairs and hills without stopping due to dyspnea OK Pulmonary Rehab Orientation Complete Complete Yes OK Nutrition Assessment PFT Date 12/03/16 Forced Vital Capacity (FVC) 1.18 52 Forced Exp. Volume/Forced Vital Cap 64 Ratio (FEV1/FVC Ratio) Forced Expiratory Volume in 1 sec. 0.76 45 History of Diabetes No Admit Height 152.4 cm Admit Weight 45.359 kg Admit Body Mass Index (BMI) 19.5 OK Education Pre-Test Score 86% Tobacco Use Former, Quit >6 Months Tobacco Product Used cigarettes Total Years Used 19 Packs Per Day 1 Use Yes Type wine Amount 4-5 oz Frequency 2-3 days/week Education Topics Breathing Retraining Discussed Education Requirements on Yes Intake OK Psychosocial Initial Assess HADS Score 0 HADS Score 1 Marital Status
--- NOTE | 2018-11-19 16:11 | PR.REVALNOTE ---
Current Diagnoses Chronic obstructive pulmonary disease, unspecified (11/19/18) Past Medical History (Last Reviewed 09/09/18 @ 17:18 by Altagracia Arellano MD) Atrial fibrillation (Resolved 2013) Hypertension (Chronic) Lung cancer (Resolved 2006) Osteoarthritis (Chronic) Osteoporosis (Chronic 2015) Ovarian cancer (Resolved 1994) Uterine cancer (Resolved 1994) Visit Care Team Role Provider Type Rosio Puckett MD Attending Provider Physician Primary Care Provider Specialty: [facility] Address: [address] [place] [address], [place], [place], [facility] Email: [email or web address] Pulmonary Rehab Re-Evaluation SD Pulmonary Rehab. Re-Assessment Start: 10/21/18 15:25 Freq: Status: Active Protocol: Document 11/19/18 16:05 VU (Rec: 11/19/18 16:11 VU [id number]) SD Exercise Re-Assessment New Session Number 1-12 Type Nustep,Treadmill METs (resistance level) 4.64TM 5.58NS % Improvement 60%TM 99%NS Interval Training Yes: pt initiated HIIT on 12th visit MET scores reflected above Shortness of Breath with Exercise Yes Desaturation with Exercise No Free Weight Yes: 4# 12r 2s Band Level Yes: #4 SD Education Re-Assessment Topics Normal Anatomy and Physiology, Chronic Lung Disease,Breathing Retraining,Benefits of Exercise Goals Pt will Master PLB and Diaphragmatic Breathing,Pt will Master Energy Conserving Techniques,Pt will learn exercise safety,Pt will continue ED topics until completion SD Psychosocial Re-Assessment Patient in Class Regularly Yes Interventions Pt attending class regularly Goals Pt will continue to attend classes 3x wk,Participate in social and educational discussion,Received emotional support from family/friends
--- NOTE | 2018-12-18 16:17 | PR.REVALNOTE ---
Current Diagnoses Chronic obstructive pulmonary disease, unspecified (12/18/18) Past Medical History (Last Updated 12/15/18 @ 13:30 by Rosio Puckett MD) Atrial fibrillation (Resolved 2013) Atrial fibrillation with RVR (Inactive) COPD (chronic obstructive pulmonary disease) (Inactive) Hypertension (Chronic) Lung cancer (Resolved 2006) Osteoarthritis (Chronic) Osteoporosis (Chronic 2016) Ovarian cancer (Resolved 1994) Uterine cancer (Resolved 1994) Visit Care Team Role Provider Type Rosio Puckett MD Attending Provider Physician Primary Care Provider Specialty: [facility] Address: [address] [place] [address] Email: [email or web address] Pulmonary Rehab Re-Evaluation [place] Education Start: 10/21/18 15:25 Freq: Status: Active Protocol: Document 12/08/18 15:23 [facility] (Rec: 12/08/18 15:24 [facility] [id number]) [place] Education Education Pt atteneded Education today with the Acoustical Logging Engineer. Subjects covered, Labels/Sugars and Salts. [place] Pulmonary Rehab. Re-Assessment Start: 10/21/18 15:25 Freq: Status: Active Protocol: Document 11/19/18 16:05 [facility] (Rec: 11/19/18 16:11 [facility] [email or web address]) [place] Exercise Re-Assessment New Session Number 1-12 Type Nustep,Treadmill METs (resistance level) 4.64TM 5.58NS % Improvement 60%TM 99%NS Interval Training Yes: pt initiated HIIT on 12th visit MET scores reflected above Shortness of Breath with Exercise Yes Desaturation with Exercise No Free Weight Yes: 4# 12r 2s Band Level Yes: #4 [place] Education Re-Assessment Topics Normal Anatomy and Physiology, Chronic Lung Disease,Breathing Retraining,Benefits of Exercise Goals Pt will Master PLB and Diaphragmatic Breathing,Pt will Master Energy Conserving Techniques,Pt will learn exercise safety,Pt will continue ED topics until completion [place] Psychosocial Re-Assessment Patient in Class Regularly Yes Interventions Pt attending class regularly Goals Pt will continue to attend classes 3x wk,Participate in social and educational discussion,Received emotional support from family/friends Document 12/18/18 16:01 [facility] (Rec: 12/18/18 16:17 [facility] [email or web address]) [place] Exercise Re-Assessment New Session Number 13-24 Type Nustep,Treadmill,BRIANNA METs (resistance level) 5.71 NS, 9.50TM, 3.79REX % Improvement 2%NS, 104%TM, 11%BRIANNA Interval Training Yes: Mets above reflect current HIIT Shortness of Breath with Exercise Yes Desaturation with Exercise No Free Weight Yes: 5# 12R 2S Band Level Yes: #4 Intervention Demonstrates proper technique and application of pursed lip breathing-goal met demonstrates proper paced breathing and breath sequencing with ADL's-showing progress Toward Target Goals improved functional capacity with improved endurance and strength-showing progress [place] Education Re-Assessment Topics Normal Anatomy and Physiology, Chronic Lung Disease, Description and Interpretation Medical Tests,Breathing Retraining,Benefits of Exercise,Eating Right Goals Pt will Master PLB and Diaphragmatic Breathing,Pt will Master Energy Conserving Techniques,Pt will learn exercise safety,Pt will continue ED topics until completion [place] Psychosocial Re-Assessment Patient in Class Regularly Yes Interventions Pt attending class regularly Referral Needed No Goals Pt will continue to attend classes 3x wk,Participate in social and educational discussion,Received emotional support from family/friends Additional Comment increased participation in physical activities, including domestic activities-goal met Participates in independent exercise-goal not met
--- NOTE | 2019-01-14 15:51 | PR.DCNOTE ---
Current Diagnoses Chronic obstructive pulmonary disease, unspecified (01/14/19) Past Medical History (Last Updated 12/15/18 @ 13:30 by Rosio Puckett MD) Atrial fibrillation (Resolved 2013) Atrial fibrillation with RVR (Inactive) COPD (chronic obstructive pulmonary disease) (Inactive) Hypertension (Chronic) Lung cancer (Resolved 2006) Osteoarthritis (Chronic) Osteoporosis (Chronic 2016) Ovarian cancer (Resolved 1994) Uterine cancer (Resolved 1994) Visit Care Team Role Provider Type Rosio Puckett MD Attending Provider Physician Primary Care Provider Specialty: [facility] Address: [address] [place] [address] Email: [email or web address] Pulmonary Rehab Discharge Evaluation [place] Education Start: 10/21/18 15:25 Freq: Status: Active Protocol: Document 12/08/18 15:23 [facility] (Rec: 12/08/18 15:24 [facility] [id number]) [place] Education Education Pt atteneded Education today with the Unloading Checker. Subjects covered, Labels/Sugars and Salts. [place] Pulmonary Rehab. DC Assessment Start: 10/21/18 15:25 Freq: Status: Active Protocol: Document 01/14/19 15:34 [email or web address] (Rec: 01/14/19 15:49 [facility] [email or web address]) [place] Exercise Discharge Assess Session 1 Type Nustep,Treadmill,BRIANNA,Rower METs (resistance level) Tm9.77,NS6.52,Rwr5.34 % Improvement TM13%, Rwr10% Interval Training Yes Shortness of Breath with Exercise Yes Desaturation with Exercise No Free Weight Yes: 5# 12reps 2 sets Band Level Yes: #4 [place] Nutrition DC Assessment Patient Ready Yes Reason Completed Max Sessions [place] Psychosocial DC Assessment HADS Depression Score 1 HADS Anxiety Score 1 Phase III Yes: Senior [facility] Strength and balance Goals Resume 2-7 mile walk in [place] 3x week-goal met [place] Six Minute Walk Test Oxygen Delivery Method Room Air Respiratory Rate (breaths/min) 14 Pulse Rate (beats/min) 58 O2 Saturation by Pulse Oximetry (%) 98 Pulse Rate (beats/min) 60 Ambulation Distance (feet) 250 O2 Saturation by Pulse Oximetry (%) 98 Pulse Rate (beats/min) 72 Ambulation Distance (feet) 250 O2 Saturation by Pulse Oximetry (%) 96 Pulse Rate (beats/min) 102 Ambulatory Distance (feet) 250 O2 Saturation by Pulse Oximetry (%) 96 Pulse Rate (beats/min) 95 Ambulation Distance (feet) 250 O2 Saturation by Pulse Oximetry (%) 96 Pulse Rate (beats/min) 95 Ambulation Distance (feet) 300 O2 Saturation by Pulse Oximetry (%) 96 PUlse Rate (beats/min) 96 Ambulation Distance (feet) 300 O2 Saturation by Pulse Oximetry (%) 95 Respiratory Rate (breaths/min) 16 Pulse Rate (beats/min) 74 O2 Saturation by Pulse Oximetry (%) 95 Activity Tolerance Good Adverse Reactions Pulse Increase > 20 bpm, Increased Shortness of Breath Distance 1600 45% improvement Azra RPE Scale 12 Oriented to RPE Scale Yes Dyspnea 3 Oriented to Dyspnea Scale Yes
== END 2019-01-19 11:21 ==
LOC: PUL 14:00
PROVIDERS: PCP Family Medicine; Visit Provider Family Medicine
DX: J44.9 Chronic obstructive pulmonary disease, unspecified (principal)
CPT/HCPCS: G0424

== ENCOUNTER → 2019-01-26 08:10 | Outpatient (CLI) | payer MEDICARE, BC, SELFPAY ==
[2018-10-21 15:28] VITALS: BMI 19.5
--- NOTE | 2019-01-26 09:27 | P.PCN_ITS ---
Cardiac Stress Test Report Referral & Results Date Patient Seen: 01/26/19 Requesting provider: Neil Pedroza Indication: Atrial fibrillation Rest ECG: Atrial fibrillation with controlled ventricular response and occasional PVCs Procedure Note: After both written and verbal informed consent, recognizing patient had this procedure done previously in 2013, and after an IV was started by the radiology nurse, patient was exercised according to a standard [place] protocol. Patient was unable to go beyond about 1 minutes into stage II because of severe dyspnea and at that point her heart rate was at only 60+% of predicted maximum/goal. Therefore the test was converted to a Lexiscan. Patient was administered the Lexiscan material by the nuclear criticality safety engineer immediately followed by the radioactive tracer. She walked in additional 3 minutes on a flat treadmill at 1 mi an hour Patient had normal response to infuse materials with occasional PVCs identified as well There are no ECG changes, heart rate response it seem to be blunted with exercise Impression: Normal response as above, please see perfusion imaging report for details regarding possible ischemia Please note: Actual ECG tracings can be found in the PACS system.
--- NOTE | 2019-01-27 17:54 | DI.NM.S_ITS ---
DATE OF SERVICE: 01/26/2019 PROCEDURE: Pharmacological perfusion study. INDICATIONS: Paroxysmal atrial fibrillation. RADIOPHARMACEUTICAL: 25.3 mCi technetium-99m Myoview IV was injected at stress and 25.7 mCi technetium-99m Myoview IV was injected at rest. CARDIAC STRESS: Initially, patient attempted exercise stress test but she became dyspneic after walking 3 minutes and 54 seconds on treadmill. There was blunted heart rate response. Test was converted to IV Lexiscan. Patient received IV Lexiscan as per standard protocol under the supervision of an attending staff. Baseline EKG revealed slow atrial flutter, low-voltage complexes throughout, poor R-wave progression, left axis. During stress, there was no new convincing ischemic changes. Intermittent PVCs were seen. RAW DATA: There was breast shadow seen. There was increased subdiaphragmatic activity. GATED STUDY: Stress LV ejection fraction 89% and resting LV ejection fraction 85%. TID ratio is 0.69, which is within normal limits. Resting LV end- diastolic volume is 65 mL. Lung/heart ratio is 0.18, which is within normal limits. MYOCARDIAL PERFUSION SCAN: There was normal myocardial perfusion. CONCLUSION: This is a normal myocardial perfusion study. No transient ischemic dilatation. Stress left ventricular (LV) ejection fraction 89%. Poor exercise tolerance. Baseline slow atrial flutter. As far as perfusion scan is concerned, this is a low-risk myocardial perfusion scan. Patient had perfusion study in 2013. At that time also patient had normal myocardial perfusion. Cecille Toledo - INSURANCE COLLECTOR/fn/ab doc#: [id number]/job#: [id number] dd: 01/27/2019 17:08:00 dt: 01/27/2019 17:45:00 DICTATING MD/COPIES TO: Ellie Hayes MD COPIES MNE: AGUSTIN
== END ==
PROVIDERS: PCP Family Medicine; Visit Provider Internal Medicine Cardiovascular Disease
DX: I48.0 Paroxysmal atrial fibrillation (principal)
CPT/HCPCS: 78452; 93016; 93017; 93018; A9502; J2785

== ENCOUNTER → 2019-06-16 10:38 | Outpatient (CLI) | payer MEDICARE, OTHER, SELFPAY ==
[2018-10-21 15:28] VITALS: BMI 19.5
[2019-06-16 10:44] LABS: RBC Urine None Seen (0-5/HPF)
[2019-06-16 12:32] LABS: Appearance Urine UA SL CLOUDY; Bilirubin Urine UA NEGATIVE (NEGATIVE); Color Urine UA YELLOW; Glucose Urine UA NEGATIVE (Negative); Ketones Urine UA NEGATIVE (NEGATIVE); Leukocyte Esterase Urine UA 3+ (NEGATIVE); Nitrite Urine UA POSITIVE (Negative); Occult Blood Urine UA NEGATIVE (Negative); Protein Urine UA NEGATIVE (Negative); Urobilinogen Urine UA 0.2 E.U./dL (0.2)
[2019-06-16 12:41] LABS: Bacteria Urine Many (>30); Culture Indicated Urine Specimen Cultured; WBC Urine 30-100/HPF (0-5/HPF)
== END ==
PROVIDERS: PCP Family Medicine; Referring Provider Family Medicine; Visit Provider Family Medicine
DX: R30.0 Dysuria (principal); R39.15 Urgency of urination
CPT/HCPCS: 81001; 87077; 87086; 87186

== ENCOUNTER → 2019-07-22 14:41 | Outpatient (CLI) | payer MEDICARE, OTHER, SELFPAY ==
[2018-10-21 15:28] VITALS: BMI 19.5
[2019-07-22 15:01] LABS: Add Manual Diff / Slide Review NO; Basophils Absolute Auto 0 /uL (0-100); Basophils Percent Auto 0.5 % (0-2); Eosinophils Absolute Auto 100 /uL (0-450); Eosinophils Percent Auto 1.1 % (2-4); Hematocrit 40.1 % (36-46); Hemoglobin 13.2 g/dL (12.0-16.0); Lymphocytes Absolute Auto 1300 /uL (1100-4500); Lymphocytes Percent Auto 21.8 % (25-40); Mean Corpuscular Hemoglobin 29.5 PG (26-34); Mean Corpuscular Volume 89.5 fL (80-100); Monocytes Absolute Auto 700 /uL (0-900); Neutrophils Absolute Auto 3800 /uL (1500-7000); Neutrophils Percent Auto 64.6 % (50-75); Platelet Count 204 X10^3/uL (150-400); Red Blood Cell Count 4.48 X10^6/uL (4.0-5.2); Red Cell Distribution Width 14.7 % (11.6-14.8); White Blood Cell Count 5.9 X10^3/uL (4.5-11.0)
[2019-07-22 15:11] LABS: Alanine Aminotransferase 24 IU/L (<35); Albumin 4.3 g/dL (3.5-5.0); Albumin Globulin Ratio 1.4 (1.0-2.8); Alkaline Phosphatase 65 U/L (38-126); Aspartate Aminotransferase 39 IU/L (14-36); BUN Creatinine Ratio 27.9 (6-22); Bilirubin Total 0.7 mg/dL (0.2-1.3); Blood Urea Nitrogen 19 mg/dL (7-17); Carbon Dioxide 34 mmol/L (22-32); Chloride 97 mmol/L (98-107); Estimated Glomerular Filt Rate > 60.0 mL/min (>60); Glucose 108 mg/dL (80-110); HEMOLYSIS < 15 (0-50); Potassium 4.6 mmol/L (3.4-5.1); Sodium 137 mmol/L (137-145); Total Protein 7.3 g/dL (6.3-8.2)
== END ==
PROVIDERS: PCP Family Medicine; Referring Provider Internal Medicine Hematology & Oncology; Visit Provider Internal Medicine Hematology & Oncology
DX: C54.1 Malignant neoplasm of endometrium (principal)
CPT/HCPCS: 36415; 80053; 85025

== ENCOUNTER → 2019-07-29 14:46 | Outpatient (CLI) | payer MEDICARE, OTHER, SELFPAY ==
[2018-10-21 15:28] VITALS: BMI 19.5
[2019-07-29 15:50] LABS: Appearance Urine UA SL CLOUDY; Bilirubin Urine UA NEGATIVE (NEGATIVE); Color Urine UA YELLOW; Glucose Urine UA NEGATIVE (Negative); Ketones Urine UA NEGATIVE (NEGATIVE); Leukocyte Esterase Urine UA 3+ (NEGATIVE); Nitrite Urine UA POSITIVE (Negative); Occult Blood Urine UA TRACE-LYSED (Negative); Protein Urine UA TRACE (Negative); Urobilinogen Urine UA 0.2 E.U./dL (0.2)
[2019-07-29 15:55] LABS: pH Urine UA 6.5 (4.5-8.0)
[2019-07-29 15:58] LABS: Bacteria Urine Many (>30); RBC Urine 0-1/HPF (0-5/HPF); Squamous Epithelial Cell Urine 0-1 /HPF (0-5/HPF); WBC Urine >100/HPF (0-5/HPF)
[2019-07-29 15:59] LABS: Culture Indicated Urine Specimen Cultured
== END ==
PROVIDERS: PCP Family Medicine; Referring Provider Family Medicine; Visit Provider Family Medicine
DX: R30.0 Dysuria (principal)
CPT/HCPCS: 81001; 87077; 87086; 87186

== ENCOUNTER → 2019-08-05 14:56 | Outpatient (CLI) | payer MEDICARE, OTHER, SELFPAY ==
[2018-10-21 15:28] VITALS: BMI 19.5
[2019-08-05 16:32] LABS: BUN Creatinine Ratio 32.3 (6-22); Blood Urea Nitrogen 20 mg/dL (7-17); Calcium 10.1 mg/dL (8.4-10.2); Carbon Dioxide 31 mmol/L (22-32); Chloride 98 mmol/L (98-107); Estimated Glomerular Filt Rate > 60.0 mL/min (>60); Glucose 89 mg/dL (80-110); HEMOLYSIS < 15 (0-50); Magnesium 2.2 mg/dL (1.6-2.3); Potassium 4.8 mmol/L (3.4-5.1); Sodium 137 mmol/L (137-145)
== END ==
PROVIDERS: PCP Family Medicine; Referring Provider Internal Medicine Cardiovascular Disease; Visit Provider Internal Medicine Cardiovascular Disease
DX: I48.91 Unspecified atrial fibrillation (principal); I10 Essential (primary) hypertension
CPT/HCPCS: 36415; 80048; 83735

== ENCOUNTER → 2019-09-01 12:30 | Outpatient (CLI) | payer MEDICARE, OTHER, SELFPAY ==
[2018-10-21 15:28] VITALS: BMI 19.5
[2019-09-01 13:06] LABS: RBC Urine None Seen (0-5/HPF)
[2019-09-01 13:36] LABS: Appearance Urine UA SL CLOUDY; Bilirubin Urine UA NEGATIVE (NEGATIVE); Color Urine UA YELLOW; Glucose Urine UA NEGATIVE (Negative); Ketones Urine UA NEGATIVE (NEGATIVE); Leukocyte Esterase Urine UA 2+ (NEGATIVE); Nitrite Urine UA POSITIVE (Negative); Occult Blood Urine UA TRACE-LYSED (Negative); Protein Urine UA NEGATIVE (Negative); Specific Gravity Urine UA <=1.005 (1.000-1.035); Urobilinogen Urine UA 0.2 E.U./dL (0.2)
[2019-09-01 13:51] LABS: Bacteria Urine Many (>30); Culture Indicated Urine Specimen Cultured; WBC Urine 30-100/HPF (0-5/HPF)
== END ==
PROVIDERS: PCP Family Medicine; Referring Provider Family Medicine; Visit Provider Family Medicine
DX: R30.0 Dysuria (principal); R35.0 Frequency of micturition; R39.15 Urgency of urination
CPT/HCPCS: 81001; 87077; 87086; 87186

== ENCOUNTER 2019-09-06 11:08 | Emergency (ER) | payer MEDICARE, OTHER, SELFPAY ==
[2018-10-21 15:28] VITALS: BMI 19.5
[2019-09-06 11:20] VITALS: BP 193/89; PULSE 57; RESP 16; TEMP 37.4; O2SAT 98; BMI 19.1
--- NOTE | 2019-09-06 11:20 | DI.CT.S_ITS ---
PROCEDURE: CT HEAD/BRAIN WO CON INDICATIONS: fall on coumadin TECHNIQUE: Noncontrast 4.5 mm thick angled axial sections acquired from the foramen magnum to the vertex, with coronal and sagittal reformats. For radiation dose reduction, the following was used: automated exposure control, adjustment of mA and/or kV according to patient size. COMPARISON: None. FINDINGS: Image quality: Excellent. CSF spaces: Basal cisterns are patent. No extra-axial fluid collections. The ventricles are symmetric in size and shape. Brain: No intracranial bleeds or masses. There is cerebral volume loss for age, with resultant ventricular and sulcal prominence. There are periventricular and deep white matter chronic small vessel ischemic changes. There is intracranial internal carotid artery atherosclerosis. Skull and face: Calvarium and visualized facial bones appear intact, without suspicious lesions. Sinuses: Visualized sinuses and mastoids are clear. IMPRESSION: Unremarkable head CT for patient age. No evidence acute stroke, hemorrhage, or mass. No evidence significant intracranial sequelae of acute trauma. Dictated by: Og Davis M.D. on 09/06/2019 at 10:45 Approved by: Og Davis M.D. on 09/06/2019 at 10:47
--- NOTE | 2019-09-06 11:20 | DI.CT.S_ITS ---
PROCEDURE: CT CERVICAL SPINE WO CON INDICATIONS: fall oon coumadin TECHNIQUE: Noncontrast 3 mm thick sections acquired from the skull base to the T4 level. Sagittal and coronal reformats were then constructed. For radiation dose reduction, the following was used: automated exposure control, adjustment of mA and/or kV according to patient size. COMPARISON: CT chest dated 11/27/16. FINDINGS: Image quality: Excellent. Bones: No fractures or dislocations. Visualized superior ribs are intact. Severe cervical spondylosis. Anterolisthesis of C3 on C4 measuring 5 mm is likely secondary to prominent bilateral facet arthropathy. There is multilevel bilateral cervical facet arthropathy. There is a degree of canal stenosis at C4-C5. There is multilevel bony foraminal narrowing. Soft tissues: Prevertebral soft tissues are normal in thickness. No paravertebral hematomas. No apical pneumothoraces. Remote right pneumonectomy. IMPRESSION: 1. No evidence acute cervical fracture or dislocation. 2. Severe cervical spondylosis. 3. Anterolisthesis of C3 on C4 measuring 5 mm is likely secondary to bilateral facet arthropathy. There is canal stenosis at this level. 4. Remote right pneumonectomy. Dictated by: Og Davis M.D. on 09/06/2019 at 10:47 Approved by: Og Davis M.D. on 09/06/2019 at 10:53
--- NOTE | 2019-09-06 11:25 | ED_ITS ---
HPI - Fall General Chief Complaint: Fall Stated Complaint: fell hit corner cabiney back of head/ bleeding Time Seen by Provider: 09/06/19 11:17 Source: patient Mode of arrival: Wheelchair History of Present Illness HPI Narrative: Patient is a 79-year-old female with history of atrial fibrillation on Coumadin presenting after ground level fall and head injury. She says she was standing she not show happened but thinks that her foot got s tuck to the floor and she lost her balance hitting her head on the back of a cabinet. No loss of consciousness no nausea vomiting weakness numbness or tingling. She denies any other injury MD complaint: fall Onset (ago): minute(s) Fall from: standing Place fall occurred: home Loss of consciousness: none Related Data Home Medications Medication Instructions Recorded Confirmed cholecalciferol (vitamin D3) 2,000 units PO DAILY #0 06/19/16 07/27/19 [Vitamin D3] calcium carbonate-vitamin D3 2 tab PO DAILY 06/24/18 07/27/19 [Calcium 600 + D(3)] multivitamin with minerals 1 tab PO DAILY 06/24/18 07/27/19 multivitamin with minerals 1 tab PO DAILY 07/27/19 07/27/19 [Hair,Skin and Nails] Previous Rx's Medication Instructions Recorded albuterol sulfate 90 mcg/actuation 1 puff INHALATION Q4-6H PRN #18 08/29/18 aerosol inhaler gram alendronate 70 mg tablet See Rx Instructions .ROUTE 06/15/19 .COMPLEX #12 tablet warfarin 2 mg tablet 2 mg PO SUMOWETHFRSA #90 tab 06/22/19 metoprolol succinate 50 mg 50 mg PO BID #180 tab 07/20/19 tablet,extended release 24 hr tiotropium bromide 18 mcg capsule See Rx Instructions .ROUTE 08/10/19 with inhalation device .COMPLEX #30 capsule cephalexin 500 mg capsule 500 mg PO TID #21 cap 09/03/19 Allergies Allergy/AdvReac Type Severity Reaction Status Date / Time No Known Drug Allergies Allergy Verified 12/15/18 09:35 Review of Systems Review of Systems Narrative: GENERAL: Denies chills, fatigue, malaise, fever, sweats, travel HEENT: Denies sinus pain, ear pain, sore throat, difficulty swallowing, neck pain RESPIRATORY: Denies dyspnea, cough, wheezing, hemoptysis, sputum. CARDIOVASCULAR: Denies chest pain, palpitations, orthopnea, edema GASTROINTESTINAL: Denies nausea, vomiting, abdominal pain, diarrhea, constipation, melena. : Denies dysuria, frequency, incontinence, hematuria, urinary retention, flank pain. MUSCULOSKELETAL: Denies weakness, joint pain, or bony pain SKIN: No rash, no erythema, no pruritus NEUROLOGIC: Denies weakness, dizziness, headache, numbness, change in speech, confusion PSYCHIATRIC: No concerning psychosocial issues. 12 point review of systems is negative except for those stated above and HPI Patient History Medical History Atrial fibrillation (Resolved 2013) Atrial fibrillation with RVR (Inactive) COPD (chronic obstructive pulmonary disease) (Inactive) Hypertension (Chronic) Lung cancer (Resolved 2006) Osteoarthritis (Chronic) Osteoporosis (Chronic 2015) Ovarian cancer (Resolved 1994) Uterine cancer (Resolved 1994) Surgical History Anesthesia (Resolved) History of bilateral salpingo-oophorectomy (BSO) History of breast augmentation (Resolved 1992) History of hip replacement (Resolved 01/2013) History of oophorectomy (Resolved 1994) History of pneumonectomy (Resolved 05/2007) Status post hysterectomy (Resolved 1994) Family History Father Hypertension Prostate cancer Grandfather Stroke Grandmother Diabetes mellitus Mother Diabetes mellitus, type II Hypertension Stroke Grandfather No problems noted. Grandmother No problems noted. Social History marital status: unmarried,single household members: none lives independently: Yes pets and animals: Yes education level: college occupational status: other Smoking Status: Former smoker Tobacco: How many years used: 19 alcohol intake: current substance use type: does not use Smoking Status: Former smoker alcohol intake frequency: holidays/special occasions only Substance Use Type: does not use Exam Initial Vital Signs Initial Vital Signs: Vital Signs Temperature 99.3 F 09/06/19 11:20 Pulse Rate 57 L 09/06/19 11:20 Respiratory Rate 16 09/06/19 11:20 Blood Pressure 193/89 H 09/06/19 11:20 Pulse Oximetry 98 09/06/19 11:20 GENERAL: Well-appearing, well-nourished and in no acute distress. HEENT: Head left posterior the laceration no,EOMI, pupils reactive, face symmetric, NECK: No vertebral tenderness no step-offs full flexion extension and rotation CARDIOVASCULAR: Regular rate and rhythm without murmurs, rubs or gallops. RESPIRATORY: Breath sounds equal bilaterally, no wheezes rales or rhonchi. ABDOMEN: Soft, nontender. Normoactive bowel sounds all 4 quadrants. No guarding or rebound. EXTREMITIES: Normal range of motion, no clubbing or edema. Neurovascularly intact arthritis noted hand. Left elbow has significant swelling contusion but full range of motion of flexion extension and supination/ pronation NEUROLOGICAL: Alert and oriented x4.Normal gait and speech. Cranial nerves II through XII grossly intact. Patient Registration Specialist strength equal bilaterally SKIN: Warm, dry, no laceration, no petechiae, no rashes or lesions. Procedures Laceration Repair Laceration 1: Site: scalp Side (If applicable): left Size (cm): 2 Description: linear Depth: simple, single layer Local Anesthetic: lidocaine 1% and with epi Pre-repair: wound explored, irrigated extensively and deep structures intact Skin layer closed with: priscilla Number of sutures: 3 Scores GCS [place] coma scale eye opening: Spontaneous [place] coma scale verbal response: Orientated [place] coma scale motor response: Obey commands [place] coma scale total score: 15 Course Orders Ordered: ED Orders 09/06/19 11:20 CT cervical spine wo con Stat CT head/brain wo con Stat 09/06/19 11:58 XR elbow LT min 3V Stat Discontinued Medications Lidocaine/Epinephrine (Xylocaine 1% W/Epi) 1 ml SUBCUT NOW ONE Stop: 09/06/19 12:03 Last Admin: 09/06/19 12:03 Dose: 1 ml Documented by: GENARO Vital Signs Vital signs: Vital Signs - 8 hr 09/06/19 11:20 09/06/19 12:26 09/06/19 12:38 Temperature 99.3 F Pulse Rate 57 L 91 H 99 H Respiratory Rate 16 18 15 Blood Pressure 193/89 H Blood Pressure [Right Arm] 170/88 H 155/88 H Pulse Oximetry 98 100 98 MDM - Fall Imaging Data CT scan - head: Radiologist's Impression: PROCEDURE: CT HEAD/BRAIN WO CON INDICATIONS: fall on coumadin TECHNIQUE: Noncontrast 4.5 mm thick angled axial sections acquired from the foramen magnum to the vertex, with coronal and sagittal reformats. For radiation dose reduction, the following was used: automated exposure control, adjustment of mA and/or kV according to patient size. COMPARISON: None. FINDINGS: Image quality: Excellent. CSF spaces: Basal cisterns are patent. No extra-axial fluid collections. The ventricles are symmetric in size and shape. Brain: No intracranial bleeds or masses. There is cerebral volume loss for age, with resultant ventricular and sulcal prominence. There are periventricular and deep white matter chronic small vessel ischemic changes. There is intracranial internal carotid artery atherosclerosis. Skull and face: Calvarium and visualized facial bones appear intact, without suspicious lesions. Sinuses: Visualized sinuses and mastoids are clear. IMPRESSION: Unremarkable head CT for patient age. No evidence acute stroke, hemorrhage, or mass. No evidence significant intracranial sequelae of acute trauma. Dictated by: Og Davis M.D. on 09/06/2019 at 10:45 CT - cervical spine: Radiologist's Impression: PROCEDURE: CT CERVICAL SPINE WO CON INDICATIONS: fall oon coumadin TECHNIQUE: Noncontrast 3 mm thick sections acquired from the skull base to the T4 level. Sagittal and coronal reformats were then constructed. For radiation dose reduction, the following was used: automated exposure control, adjustment of mA and/or kV according to patient size. COMPARISON: CT chest dated 11/27/16. FINDINGS: Image quality: Excellent. Bones: No fractures or dislocations. Visualized superior ribs are intact. Severe cervical spondylosis. Anterolisthesis of C3 on C4 measuring 5 mm is likely secondary to prominent bilateral facet arthropathy. There is multilevel bilateral cervical facet arthropathy. There is a degree of canal stenosis at C4-C5. There is multilevel bony foraminal narrowing. Soft tissues: Prevertebral soft tissues are normal in thickness. No paravertebral hematomas. No apical pneumothoraces. Remote right pneumonectomy. IMPRESSION: 1. No evidence acute cervical fracture or dislocation. 2. Severe cervical spondylosis. 3. Anterolisthesis of C3 on C4 measuring 5 mm is likely secondary to bilateral facet arthropathy. There is canal stenosis at this level. 4. Remote right pneumonectomy. Dictated by: Og Davis M.D. on 09/06/2019 at 10:47 Extremity x-ray #1: Radiologist's Impression: PROCEDURE: XR ELBOW LT MIN 3V INDICATIONS: fall swelling TECHNIQUE: 3 views of the elbow were acquired. COMPARISON: None. FINDINGS: Bones: No fractures or dislocations. No suspicious bony lesions. Soft tissues: No elbow joint effusion. No suspicious soft tissue calcifications. IMPRESSION: No evidence acute bony abnormality of the left elbow. If clinical suspicion and/or symptoms persist, further assessment with repeat plain films, or advanced imaging (e.g., CT, MRI, or bone scan) may be helpful for further assessment. Dictated by: Og Davis M.D. on 09/06/2019 at 11:22 MDM Narrative Medical decision making narrative: Patient has a mechanical fall her foot got stuck on the floor and she fell to the ground. No loss of consciousness. Head CT and neck CT are negative. Laceration is repaired easily bleeding is controlled. Patient has no focal deficits Discharge Plan Departure Patient Disposition: Home Clinical Impression: Laceration of scalp Qualifiers: Encounter type: initial encounter Qualified Code(s): S01.01XA - Laceration without foreign body of scalp, initial encounter Contusion of elbow, left Qualifiers: Encounter type: initial encounter Qualified Code(s): S50.02XA - Contusion of left elbow, initial encounter Discharge Date/Time: 09/06/19 12:49 Instructions: DI for Laceration Repair -- Priscilla, How to Prevent Falls Activity Restrictions/Additional Instructions: *You have been diagnosed with scalp laceration and contusion of left elbow *What to do: You may bathe and wash care with soap and water have priscilla removed in about 5 days by her primary care provider. He elbow wrapped for a few hours you may take it off later tonight *Continue to take medications as directed Tylenol 650 mg every 4-6 hours if needed for pain *Follow up with your primary care provider in 2-3 days *Return to ER if you should have persistent vomiting, worsening headache, weakness difficulty speaking or any new, worsening or concerning symptoms Prescriptions: No Action cholecalciferol (vitamin D3) [Vitamin D3] 1,000 UNIT tablet 2,000 units PO DAILY Qty: 0 RF: 0 albuterol sulfate [Ventolin HFA] 90 mcg/actuation HFA aerosol inhaler 1 puff INHALATION Q4-6H PRN (Reason: shortness of breath) Qty: 18 RF: 0 alendronate 70 mg tablet See Rx Instructions .ROUTE .COMPLEX Qty: 12 RF: 0 warfarin [Coumadin] 2 mg tablet 2 mg PO SUMOWETH Qty: 90 RF: 0 metoprolol succinate 50 mg tablet extended release 24 hr 50 mg PO BID Qty: 180 RF: 3 Spiriva with HandiHaler 18 mcg capsule, w/inhalation device See Rx Instructions .ROUTE .COMPLEX Qty: 30 RF: 3 cephalexin 500 mg capsule 500 mg PO TID Qty: 21 RF: 0 calcium carbonate-vitamin D3 [Calcium 600 + D(3)] 600 mg(1,500mg) -200 unit Tablet 2 tab PO DAILY RF: 0 multivitamin with minerals Tablet 1 tab PO DAILY RF: 0 multivitamin with minerals [Hair,Skin and Nails] Tablet 1 tab PO DAILY RF: 0 Referrals: Rosio Puckett MD [Primary Care Provider] -
--- NOTE | 2019-09-06 11:58 | DI.RAD.S_ITS ---
PROCEDURE: XR ELBOW LT MIN 3V INDICATIONS: fall swelling TECHNIQUE: 3 views of the elbow were acquired. COMPARISON: None. FINDINGS: Bones: No fractures or dislocations. No suspicious bony lesions. Soft tissues: No elbow joint effusion. No suspicious soft tissue calcifications. IMPRESSION: No evidence acute bony abnormality of the left elbow. If clinical suspicion and/or symptoms persist, further assessment with repeat plain films, or advanced imaging (e.g., CT, MRI, or bone scan) may be helpful for further assessment. Dictated by: Og Davis M.D. on 09/06/2019 at 11:22 Approved by: Og Davis M.D. on 09/06/2019 at 11:23
[2019-09-06] MEDS: LIDOCAINE 1% W/EPI 1 ML SUBCUT (12:03)
--- NOTE | 2019-09-06 12:06 | PC.NURSE ---
Wound cleaned and closed with 3 lashanda. Bleeding controlled with lido with epi. Site dressed with gauze and kurlex.
[2019-09-06 12:26] VITALS: BP 170/88; PULSE 91; RESP 18; O2SAT 100
[2019-09-06 12:38] VITALS: BP 155/88; PULSE 99; RESP 15; O2SAT 98
== END 2019-09-06 12:49 | disposition home or self-care (01) ==
PROVIDERS: Emergency Provider Emergency Medicine; PCP Family Medicine
DX: S01.01XA Laceration without foreign body of scalp, initial encounter (principal); S50.02XA Contusion of left elbow, initial encounter; I48.91 Unspecified atrial fibrillation; Z79.01 Long term (current) use of anticoagulants; W01.10XA Fall on same level from slipping, tripping and stumbling with subsequent striking against unspecified object, initial encounter
CPT/HCPCS: 12001; 70450; 72125; 73080; 99284

== ENCOUNTER → 2019-09-14 13:31 | Outpatient (CLI) | payer MEDICARE, OTHER, SELFPAY ==
[2018-10-21 15:28] VITALS: BMI 19.5
[2019-09-14 16:07] LABS: Bacteria Urine None Seen; RBC Urine None Seen (0-5/HPF)
[2019-09-14 16:18] LABS: Appearance Urine UA CLEAR; Bilirubin Urine UA NEGATIVE (NEGATIVE); Color Urine UA YELLOW; Glucose Urine UA NEGATIVE (Negative); Ketones Urine UA NEGATIVE (NEGATIVE); Leukocyte Esterase Urine UA NEGATIVE (NEGATIVE); Nitrite Urine UA NEGATIVE (Negative); Occult Blood Urine UA NEGATIVE (Negative); Protein Urine UA NEGATIVE (Negative); Urobilinogen Urine UA 0.2 E.U./dL (0.2)
[2019-09-14 17:52] LABS: Amorphous Sediment Urine 1+; Culture Indicated Urine Cult Not Indicated; Squamous Epithelial Cell Urine 0-1 /HPF (0-5/HPF); WBC Urine 0-1/HPF (0-5/HPF)
== END ==
PROVIDERS: PCP Family Medicine; Referring Provider Family Medicine; Visit Provider Family Medicine
DX: N39.0 Urinary tract infection, site not specified (principal); R30.0 Dysuria
CPT/HCPCS: 81001; 87086

== ENCOUNTER → 2019-11-25 17:44 | Outpatient (CLI) | payer MEDICARE, OTHER, SELFPAY ==
[2019-10-01 17:54] VITALS: BMI 19.5
--- NOTE | 2019-11-25 18:07 | DI.MG.S_ITS ---
Patient Name: ELIUD BENDER date: 1940 Sex: F Attending Physician: Lavern Indications: Date: 11/25/2019 18:03 At the request of: CASIE KNAPP Procedure: MM screening mammo BI BILATERAL DIGITAL SCREENING MAMMOGRAM 3D/2D WITH CAD: 11/25/2019 CLINICAL: Routine screening. Family history of breast cancer. Comparison is made to exams dated: 10/28/2018 mammogram, 10/22/2017 mammogram, and 09/18/2016 mammogram - [facility]. The tissue of both breasts is heterogeneously dense. This may lower the sensitivity of mammography. Current study was also evaluated with a Computer Aided Detection (CAD) system. There is a new 0.4 cm asymmetry in the right breast sub-areolar depth central to the nipple seen on the craniocaudal view only 1.2 cm from the nipple. There is possible architectural distortion associated with the asymmetry on CC tomosynthesis image /. No other significant masses, calcifications, or other findings are seen in either breast. IMPRESSION: INCOMPLETE: NEEDS ADDITIONAL IMAGING EVALUATION Asymmetry and possible architectural distortion in the right breast. A diagnostic mammogram and ultrasound is recommended. This exam was interpreted at Station ID: [id number]. NOTE: For mammograms, a report in lay terms will be sent to the patient. Approximately 15% of breast malignancies will not be visualized mammographically. In the management of a palpable breast mass, a negative mammogram must not discourage biopsy of a clinically suspicious lesion. Electronically Signed By: Jani Webb M.D. jr/:11/26/2019 08:36:28 Continued Report - Page 2 of 2 Patient Name: ELIUD BENDER date: 1940 Sex: F Attending Physician: Lavern Indications: Date: 11/25/2019 18:03 At the request of: CASIE KNAPP Procedure: MM screening mammo BI letter sent: Additional Imaging Needed ACR BI-RADS Category 0: Incomplete [id number]
== END ==
PROVIDERS: PCP Family Medicine; Referring Provider Family Medicine; Visit Provider Family Medicine
DX: Z12.31 Encounter for screening mammogram for malignant neoplasm of breast (principal); Z80.3 Family history of malignant neoplasm of breast
CPT/HCPCS: 77063; 77067

== ENCOUNTER → 2019-12-04 09:39 | Outpatient (CLI) | payer MEDICARE, OTHER, SELFPAY ==
[2019-10-01 17:54] VITALS: BMI 19.5
--- NOTE | 2019-12-04 | DI.MG.S_ITS ---
UNILATERAL RIGHT DIGITAL DIAGNOSTIC MAMMOGRAM 3D/2D WITH ADDITIONAL VIEWS: 12/04/2019 CLINICAL: Additional evaluation requested from prior study. Comparison is made to exams dated: 11/25/2019 mammogram, 10/28/2018 mammogram, 10/22/2017 mammogram, and 09/18/2016 mammogram - [facility]. The tissue of right breast is heterogeneously dense. This may lower the sensitivity of mammography. Asymmetry in the right breast sub-areolar depth central to the nipple seen on the craniocaudal view only. This is less prominent. Possible architectural distortion associated with the asymmetry does not persist. No other significant masses or calcifications are seen in the breast. IMPRESSION: INCOMPLETE: NEEDS ADDITIONAL IMAGING EVALUATION Asymmetry in the right breast is less prominent and is indeterminate. A targeted ultrasound is recommended and will immediately follow. This exam was interpreted at Station ID: [id number]. NOTE: For mammograms, a report in lay terms will be sent to the patient. Approximately 15% of breast malignancies will not be visualized mammographically. In the management of a palpable breast mass, a negative mammogram must not discourage biopsy of a clinically suspicious lesion. Electronically Signed By: Ramy Navas M.D. slc/:12/04/2019 10:40:07 ACR BI-RADS Category 0: Incomplete [id number]
--- NOTE | 2019-12-04 09:41 | DI.US.S_ITS ---
LIMITED ULTRASOUND OF RIGHT BREAST: 12/04/2019 CLINICAL: Patient returns today to evaluate a focal asymmetry in the right breast. Comparison is made to exams dated: 12/04/2019 mammogram, 11/25/2019 mammogram, 10/28/2018 mammogram, 10/22/2017 mammogram, 09/18/2016 mammogram, and 08/15/2015 mammogram - [facility]. Color flow and real-time ultrasound of the right breast retroareolar were performed. Abreu scale images of the real-time examination were reviewed. There is a 0.5 cm x 0.5 cm x 0.2 cm oval cyst in the right breast central to the nipple in the retroareolar region. This oval cyst is hypoechoic with a well-defined boundary and no posterior acoustic shadowing or enhancement. This correlates with mammography findings. Color flow imaging demonstrates that there is no vascularity present. This finding does not have an elongated appearance like the adjacent similar appearing retroareolar ducts. IMPRESSION: PROBABLY BENIGN The 0.5 cm oval cyst in the right breast is most consistent with a complicated cyst or could represent focal dilated duct. This finding is probably benign. A follow-up mammogram and an ultrasound in 6 months is recommended to demonstrate stability. Exam findings were conveyed to the patient. This exam was interpreted at Station ID: [id number]. Electronically Signed By: Ramy Navas M.D. slc/:12/04/2019 10:43:44 letter sent: Followup Recommended Ultrasound BI-RADS: 3 Probably benign
== END ==
PROVIDERS: PCP Family Medicine; Referring Provider Family Medicine; Visit Provider Family Medicine
DX: R92.8 Other abnormal and inconclusive findings on diagnostic imaging of breast (principal); N60.01 Solitary cyst of right breast
CPT/HCPCS: 76642; 77065; G0279

== ENCOUNTER → 2020-02-08 10:14 | Outpatient (CLI) | payer MEDICARE, OTHER, SELFPAY ==
[2019-10-01 17:54] VITALS: BMI 19.5
== END ==
PROVIDERS: PCP Family Medicine; Referring Provider Family Medicine; Visit Provider Family Medicine
DX: M81.0 Age-related osteoporosis without current pathological fracture (principal); Z78.0 Asymptomatic menopausal state; Z90.722 Acquired absence of ovaries, bilateral; Z85.43 Personal history of malignant neoplasm of ovary; Z85.118 Personal history of other malignant neoplasm of bronchus and lung; Z82.62 Family history of osteoporosis; Z87.891 Personal history of nicotine dependence
CPT/HCPCS: 77080; 77081

== ENCOUNTER 2020-02-29 12:35 | Emergency (ER) | payer MEDICARE, OTHER, SELFPAY ==
[2019-10-01 17:54] VITALS: BMI 19.5
[2020-02-29] VITALS (9 sets, daily range): BP systolic 146–228; BP diastolic 78–100; PULSE 75–95; RESP 16–31; TEMP 36.5; O2SAT 98–100; BMI 18.5
--- NOTE | 2020-02-29 12:47 | PC.NURSE ---
Observed pt. Lac noted to scalp. ambulating well. will go straight to CT then room 2. CT notified.
--- NOTE | 2020-02-29 13:01 | DI.CT.S_ITS ---
PROCEDURE: CT HEAD/BRAIN WO CON INDICATIONS: fall on warfarin TECHNIQUE: Noncontrast 4.5 mm thick angled axial sections acquired from the foramen magnum to the vertex, with coronal and sagittal reformats. For radiation dose reduction, the following was used: automated exposure control, adjustment of mA and/or kV according to patient size. COMPARISON: [facility], CT, CT HEAD/BRAIN WO CON, 09/06/2019, 11:20. [facility], CT, HEAD WITHOUT CONTRAST, 11/09/2013, 21:55. FINDINGS: Image quality: Excellent. CSF spaces: Basal cisterns are patent. No extra-axial fluid collections. The ventricles are symmetric in size and shape. Brain: No intracranial bleeds or masses. There is cerebral volume loss for age, with resultant ventricular and sulcal prominence. There are periventricular and deep white matter chronic small vessel ischemic changes. There is intracranial internal carotid artery atherosclerosis. Skull and face: There is a right posterior scalp hematoma with laceration. No associated calvarial fracture is seen. Calvarium and visualized facial bones appear intact, without suspicious lesions. Sinuses: Visualized sinuses and mastoids are clear. IMPRESSION: No acute intracranial hemorrhage is seen. No acute intracranial process is seen. Left posterior scalp hematoma with laceration, without an underlying calvarial fracture. Dictated by: Javed Person M.D. on 02/29/2020 at 12:11 Approved by: Javed Person M.D. on 02/29/2020 at 12:13
--- NOTE | 2020-02-29 13:24 | ED_ITS ---
HPI - Fall General Chief Complaint: Fall Stated Complaint: tripped and hit head on warfin Time Seen by Provider: 02/29/20 13:04 Source: patient Mode of arrival: Ambulatory Limitations: no limitations History of Present Illness HPI Narrative: 79-year-old female comes to the emergency department with complaint of scalp laceration. Patient states that she tripped at home and fell striking her head on a coffee table. Patient states she did not lose consciousness. She denies any syncope, lightheadedness or symptoms initially. She states she just lost her balance. She typically walks unassisted. She denies any neck or back pain. No vision changes, no nausea or vomiting. No chest pain or shortness of breath. No numbness, tingling or weakness in her extremities. Patient complains of some mild knee pain but states everything is working properly and does not feel that she has injured it seriously. Patient is on warfarin for atrial fibrillation. States that her blood pressure was elevated last night she did have a very salty meal and it is still little elevated today. She did take her home medications this morning. She is accompanied by family friend. Related Data Home Medications Medication Instructions Recorded Confirmed cholecalciferol (vitamin D3) 2,000 units PO DAILY #0 06/19/16 02/01/20 [Vitamin D3] calcium carbonate-vitamin D3 2 tab PO DAILY 06/24/18 02/01/20 [Calcium 600 + D(3)] multivitamin with minerals 1 tab PO DAILY 06/24/18 02/01/20 multivitamin with minerals 1 tab PO DAILY 07/27/19 02/01/20 [Hair,Skin and Nails] carvedilol 6.25 mg tablet 3.125 mg PO BID 10/23/19 02/01/20 flecainide 100 mg PO Q12H 01/25/20 02/01/20 Previous Rx's Medication Instructions Recorded albuterol sulfate 90 mcg/actuation 1 puff INHALATION Q4-6H PRN #18 08/29/18 aerosol inhaler gram warfarin 2 mg tablet 2 mg PO SUMOWETHFRSA #90 tab 09/18/19 alendronate 70 mg tablet See Rx Instructions .ROUTE 01/26/20 .COMPLEX #12 tab tiotropium bromide 18 mcg capsule See Rx Instructions .ROUTE 02/16/20 with inhalation device .COMPLEX #30 cap Allergies Allergy/AdvReac Type Severity Reaction Status Date / Time No Known Drug Allergies Allergy Verified 02/01/20 14:13 Review of Systems Review of Systems ROS Unobtainable: All systems reviewed & are unremarkable except as noted in HPI and below Patient History Medical History Atrial fibrillation (2013) Atrial fibrillation with RVR COPD (chronic obstructive pulmonary disease) Hypertension Lung cancer (2006) Osteoarthritis Osteoporosis (2015) Ovarian cancer (1994) Uterine cancer (1994) Surgical History Anesthesia History of bilateral salpingo-oophorectomy (BSO) History of breast augmentation (1992) History of hip replacement (01/2013) History of oophorectomy (1994) History of pneumonectomy (05/2007) Status post hysterectomy (1994) Family History Father Hypertension Prostate cancer Grandfather Stroke Grandmother Diabetes mellitus Mother Diabetes mellitus, type II Hypertension Stroke Grandfather No problems noted. Grandmother No problems noted. Social History marital status: unmarried,single household members: none lives independently: Yes pets and animals: Yes education level: college occupational status: other Smoking Status: Former smoker Tobacco: How many years used: 19 alcohol intake: current substance use type: does not use Smoking Status: Former smoker alcohol intake frequency: holidays/special occasions only Substance Use Type: does not use Exam Narrative Exam Narrative: GEN: Patient appears in mild distress. HEAD: Positive for right posterior scalp laceration, no raccoon/Leung sign. NECK: Nontender, painless range of motion, trachea midline Negative Nexus criteria, there is no mid line tenderness, distracting injury, altered mental status, neuro deficit, recent EtOH. EYES: PERRLA, EOMI ENT: External inspection normal, trachea is midline, TM's are normal no hemotypanum, Nares are clear, no septal hematoma, no dental or oral injury, airway is normal and with normal occlusion, No bony tenderness RESP: Chest is nontender and has symmetric movement, no ecchymosis, breath sounds are normal no crackles, wheezes or rales CVS: Heart sounds are normal, no murmur noted, No JVD. ABG/GI: Nontender, soft, normal bowel sounds, no distention, no organomegaly, pelvic rock is negative NEURO: Oriented AOx3, neuro is grossly intact, sensation and motor is normal all 4 extremities moving, cranial nerves II through XII are intact, GCS is 15 PSYCH: Normal mood and affect SKIN: Intact, warm and dry, no crepitus and without decubitus BACK: No CVA tenderness, no vertebral tenderness, no step-off's, no crepitus EXT: Atraumatic, hips are nontender, no pedal edema, normal color and temperature, normal range of motion of extremities with normal tendon exam, 2+ pulses in all four extremities Initial Vital Signs Initial Vital Signs: Vital Signs Pulse Rate 85 02/29/20 13:11 Blood Pressure 228/100 H 02/29/20 13:11 Pulse Oximetry 98 02/29/20 13:11 Procedures Laceration Repair Laceration 1: Site: scalp Side (If applicable): right Size (cm): 2 Description: flap, irregular and clean Local Anesthetic: lidocaine 1% and with epi Amount of anesthesia used (mL): 5 Pre-repair: wound explored, irrigated extensively and deep structures intact Skin layer closed with: lashanda ([employer] attempted with lashanda but unsuccessful. ) Size (cm): 3-0 Number of sutures: 2 Scores GCS [place] coma scale eye opening: Spontaneous [place] coma scale verbal response: Orientated [place] coma scale motor response: Obey commands [place] coma scale total score: 15 Course Orders Ordered: ED Orders 02/29/20 13:01 CT head/brain wo con Stat 02/29/20 13:32 Basic Metabolic Panel Stat Complete Blood Count AUTO DIFF Stat Partial Thromboplastin Time Stat Prothrombin Time INR Stat Discontinued Medications Lidocaine/Epinephrine (Lidocaine 1% W/Epi) 10 ml SUBCUT NOW ONE Stop: 02/29/20 14:13 Last Admin: 02/29/20 16:01 Dose: Not Given Documented by: SUDARSHAN Vital Signs Vital signs: Vital Signs - 8 hr 02/29/20 13:11 02/29/20 13:16 02/29/20 13:30 Temperature 97.7 F Pulse Rate 85 89 84 Respiratory Rate 16 26 H Blood Pressure 228/100 H 228/100 H Pulse Oximetry 98 98 100 02/29/20 13:31 02/29/20 14:00 02/29/20 14:30 Temperature Pulse Rate 82 75 89 Respiratory Rate 31 H 21 22 Blood Pressure 194/94 H 191/93 H 195/84 H Pulse Oximetry 99 99 99 02/29/20 15:00 02/29/20 15:30 02/29/20 15:31 Temperature Pulse Rate 95 H 79 78 Respiratory Rate 30 H 29 H 24 Blood Pressure 146/89 H 175/78 H Pulse Oximetry 98 MDM - Fall Lab Data Attestation: I reviewed the patient's lab results. Result diagrams: 02/29/20 13:32 02/29/20 13:32 Labs: Lab Results 02/29/20 02/29/20 02/29/20 Range/Units 13:32 13:32 13:32 WBC 5.9 (4.5-11.0) X10^3/uL RBC 4.36 (4.0-5.2) X10^6/uL Hgb 12.8 (12.0-16.0) g/dL Hct 38.6 (36-46) % MCV 88.5 (80-100) fL MCH 29.2 (26-34) PG MCHC 33.0 (30-36) % RDW 15.0 H (11.6-14.8) % Plt Count 233 (150-400) X10^3/uL Neut % (Auto) 73.3 (50-75) % Lymph % (Auto) 16.0 L (25-40) % [place] % (Auto) 8.7 (3-14) % Eos % (Auto) 1.4 L (2-4) % Baso % (Auto) 0.6 (0-2) % Neut # (Auto) 4300 (4864-7259) /uL Lymph # (Auto) 900 L (7127-1971) /uL [place] # (Auto) 500 (0-900) /uL Eos # (Auto) 100 (0-450) /uL Baso # (Auto) 0 (0-100) /uL PT 32.9 H (10.1-12.7) SECONDS INR 2.9 H (0.9-1.3) APTT 53 H D (26.4-36.2) SECONDS Sodium 136 L (137-145) mmol/L Potassium 4.3 (3.4-5.1) mmol/L Chloride 99 (98-107) mmol/L Carbon Dioxide 36 H (22-32) mmol/L BUN 19 H (7-17) mg/dL Creatinine 0.65 (0.52-1.04) mg/dL Estimated GFR > 60.0 (>60) mL/min BUN/Creatinine Ratio 29.2 H (6-22) Glucose 99 (80-110) mg/dL Calcium 9.9 (8.4-10.2) mg/dL Imaging Data CT scan - head: Radiologist's Impression: [facility] [place] [id number] Scan ReportSigned Patient: Cecille Toledo AMR#: [id number]: 1940Acct :[id number]/Sex: 79 / FDate of Service: 02/29/20Loc: EDAccession Number: [id number] Procedure: CT head/brain wo con Ordering Provider: Jayla Fraser D.O. PROCEDURE: CT HEAD/BRAIN WO CON INDICATIONS: fall on warfarin TECHNIQUE: Noncontrast 4.5 mm thick angled axial sections acquired from the foramen magnum to the vertex, with coronal and sagittal reformats. For radiation dose reduction, the following was used: automated exposure control, adjustment of mA and/or kV according to patient size. COMPARISON: [facility], CT, CT HEAD/BRAIN WO CON, 09/06/2019, 11:20. [facility], CT, HEAD WITHOUT CONTRAST, 11/09/2013, 21:55. FINDINGS: Image quality: Excellent. CSF spaces: Basal cisterns are patent. No extra-axial fluid collections. The ventricles are symmetric in size and shape. Brain: No intracranial bleeds or masses. There is cerebral volume loss for age, with resultant ventricular and sulcal prominence. There are periventricular and deep white matter chronic small vessel ischemic changes. There is intracranial internal carotid artery atherosclerosis. Skull and face: There is a right posterior scalp hematoma with laceration. No associated calvarial fracture is seen. Calvarium and visualized facial bones appear intact, without suspicious lesions. Sinuses: Visualized sinuses and mastoids are clear. IMPRESSION: No acute intracranial hemorrhage is seen. No acute intracranial process is seen. Left posterior scalp hematoma with laceration, without an underlying calvarial fracture. Dictated by: Javed Person M.D. on 02/29/2020 at 12:11 Approved by: Javed Person M.D. on 02/29/2020 at 12:13 ECG Data Prior ECG tracings: available for review MDM Narrative Medical decision making narrative: 79-year-old female comes in with a trip and fall. Head CT is negative for intracranial bleed. She had a large scalp laceration which required repair. INR is elevated 2.9 otherwise labs do not show major abnormalities. To ambulate in the department without issue after wards. Discharge Plan Departure Patient Disposition: Home Clinical Impression: Laceration of scalp, Head injury Instructions: DI for Laceration Repair -- [place], DI for Closed Head Injury Activity Restrictions/Additional Instructions: Wound Care: Keep wound(s) clean and dry. Wash daily with soap and water only. Do not use over the counter products (alcohol or peroxide)on the wounds unless instructed by a physician. If wound condition worsens (increased/expanding redness, developing fluid b listers, or worsening pain), either contact your doctor for an urgent re- assessment , or return to the Emergency Department. Return to the Emergency Department for any new or worsening symptoms. Return to the ED, urgent care, or vist a primary care doctor for removal or suture or lashanda in 7-10 days. You have absorbable and 2 non-absorbable stitches in your scalp. Return if fever greater than 100.4 Fahrenheit, increased swelling, increasing pain or worsening symptoms such as increased discharge or spreading redness. Lightheadedness, passing out, severe headaches, new vision changes, new neck, back pain, new numbness, tingling or weakness in your extremities, difficulty with walking or ambulation, persistent vomiting or other new or concerning symptoms. Prescriptions: No Action cholecalciferol (vitamin D3) [Vitamin D3] 1,000 UNIT tablet 2,000 units PO DAILY Qty: 0 RF: 0 albuterol sulfate [Ventolin HFA] 90 mcg/actuation HFA aerosol inhaler 1 puff INHALATION Q4-6H PRN (Reason: shortness of breath) Qty: 18 RF: 0 warfarin [Coumadin] 2 mg tablet 2 mg PO SUMOWE Qty: 90 RF: 3 carvedilol 6.25 mg tablet 3.125 mg PO BID RF: 0 alendronate 70 mg tablet See Rx Instructions .ROUTE .COMPLEX Qty: 12 RF: 0 tiotropium bromide [Spiriva with HandiHaler] 18 mcg capsule, w/inhalation device See Rx Instructions .ROUTE .COMPLEX Qty: 30 RF: 1 calcium carbonate-vitamin D3 [Calcium 600 + D(3)] 600 mg(1,500mg) -200 unit Tablet 2 tab PO DAILY RF: 0 multivitamin with minerals Tablet 1 tab PO DAILY RF: 0 multivitamin with minerals [Hair,Skin and Nails] Tablet 1 tab PO DAILY RF: 0 flecainide 100 mg Tablet 100 mg PO Q12H RF: 0 Referrals: Rosio Puckett MD [Primary Care Provider] -
[2020-02-29 13:47] LABS: Add Manual Diff / Slide Review NO; Basophils Absolute Auto 0 /uL (0-100); Basophils Percent Auto 0.6 % (0-2); Eosinophils Absolute Auto 100 /uL (0-450); Eosinophils Percent Auto 1.4 % (2-4); Hematocrit 38.6 % (36-46); Hemoglobin 12.8 g/dL (12.0-16.0); Lymphocytes Absolute Auto 900 /uL (1100-4500); Mean Corpuscular Hemoglobin 29.2 PG (26-34); Mean Corpuscular Volume 88.5 fL (80-100); Monocytes Absolute Auto 500 /uL (0-900); Monocytes Percent Auto 8.7 % (3-14); Neutrophils Absolute Auto 4300 /uL (1500-7000); Neutrophils Percent Auto 73.3 % (50-75); Platelet Count 233 X10^3/uL (150-400); Red Blood Cell Count 4.36 X10^6/uL (4.0-5.2); White Blood Cell Count 5.9 X10^3/uL (4.5-11.0)
[2020-02-29 13:54] LABS: INR 2.9 (0.9-1.3); Prothrombin Time 32.9 SECONDS (10.1-12.7)
[2020-02-29 13:57] LABS: PTT Partial Thromboplastin Tim 53 SECONDS (26.4-36.2)
[2020-02-29 13:58] LABS: BUN Creatinine Ratio 29.2 (6-22); Blood Urea Nitrogen 19 mg/dL (7-17); Calcium 9.9 mg/dL (8.4-10.2); Carbon Dioxide 36 mmol/L (22-32); Chloride 99 mmol/L (98-107); Estimated Glomerular Filt Rate > 60.0 mL/min (>60); Glucose 99 mg/dL (80-110); HEMOLYSIS 17 (0-50); Potassium 4.3 mmol/L (3.4-5.1); Sodium 136 mmol/L (137-145)
== END 2020-02-29 16:08 | disposition home or self-care (01) ==
PROVIDERS: Emergency Provider Emergency Medicine; PCP Family Medicine
DX: S01.01XA Laceration without foreign body of scalp, initial encounter (principal); S09.90XA Unspecified injury of head, initial encounter; W01.190A Fall on same level from slipping, tripping and stumbling with subsequent striking against furniture, initial encounter; I48.91 Unspecified atrial fibrillation; Z79.01 Long term (current) use of anticoagulants
CPT/HCPCS: 70450; 80048; 85025; 85610; 85730

== ENCOUNTER 2020-02-29 17:12 | Emergency (ER) | payer MEDICARE, OTHER, SELFPAY ==
[2019-10-01 17:54] VITALS: BMI 19.5
[2020-02-29] VITALS (14 sets, daily range): BP systolic 98–173; BP diastolic 53–124; PULSE 61–108; RESP 16–29; TEMP 36.4; O2SAT 93–99
--- NOTE | 2020-02-29 17:29 | DI.CT.S_ITS ---
PROCEDURE: CT HEAD/BRAIN WO CON INDICATIONS: pre-syncope, had head injury earlier today, laceration of scalp TECHNIQUE: Noncontrast 4.5 mm thick angled axial sections acquired from the foramen magnum to the vertex, with coronal and sagittal reformats. For radiation dose reduction, the following was used: automated exposure control, adjustment of mA and/or kV according to patient size. COMPARISON: [facility], MR, BRAIN WITH AND WITHOUT CONTRAS, 05/01/2007, 7:54. [facility], CT, CT HEAD/BRAIN WO CON, 09/06/2019, 11:20. [facility], CT, HEAD WITHOUT CONTRAST, 11/09/2013, 21:55. [facility], CT, HEAD WITHOUT CONTRAST, 05/08/2013, 15:50. [facility], CT, CT CERVICAL SPINE WO CON, 02/29/2020, 17:36. [facility], CT, CT HEAD/BRAIN WO CON, 02/29/2020, 12:51. FINDINGS: Image quality: Excellent. CSF spaces: Basal cisterns are patent. No extra-axial fluid collections. The ventricles are symmetric in size and shape. Brain: No intracranial bleeds or masses. There is cerebral volume loss for age, with resultant ventricular and sulcal prominence. There are periventricular and deep white matter chronic small vessel ischemic changes. There is intracranial internal carotid artery atherosclerosis. Skull and face: There is again seen a right parietal region scalp hematoma with a repaired laceration. No underlying calvarial fracture is seen. Calvarium and visualized facial bones appear intact, without suspicious lesions. Sinuses: Visualized sinuses and mastoids are clear. IMPRESSION: No interval development of intracranial hemorrhage. Repaired right posterior scalp laceration. Dictated by: Javed Person M.D. on 02/29/2020 at 17:03 Approved by: Javed Person M.D. on 02/29/2020 at 17:05
[2020-02-29] MEDS: SODIUM CHLORIDE 0.9% 1,000 ML 150 ML IV (17:30)
--- NOTE | 2020-02-29 17:31 | ED.SYNCOPE ---
HPI - Syncope General Chief Complaint: Syncope Stated Complaint: syncope Time Seen by Provider: 02/29/20 17:15 Source: patient and EMS Mode of arrival: EMS Limitations: no limitations History of Present Illness HPI narrative: Pleasant 79-year-old female who was seen by myself earlier today for a fall and a laceration to the posterior scalp. 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 She did not have loss of consciousness. Denies additional falls. She denies any severe headache. She has some mild discomfort on the posterior scalp where prior laceration is located. No vision changes. No chest pain or shortness of breath. No new back or neck pain. No nausea, no vomiting, no new GI issues or urinary issues. Patient does take warfarin regularly. She did not have any other new trauma or injury she did not hit her head again. Related Data Home Medications Medication Instructions Recorded Confirmed cholecalciferol (vitamin D3) 2,000 units PO DAILY #0 06/19/16 02/01/20 [Vitamin D3] calcium carbonate-vitamin D3 2 tab PO DAILY 06/24/18 02/01/20 [Calcium 600 + D(3)] multivitamin with minerals 1 tab PO DAILY 06/24/18 02/01/20 multivitamin with minerals 1 tab PO DAILY 07/27/19 02/01/20 [Hair,Skin and Nails] carvedilol 6.25 mg tablet 3.125 mg PO BID 10/23/19 02/01/20 flecainide 100 mg PO Q12H 01/25/20 02/01/20 Previous Rx's Medication Instructions Recorded albuterol sulfate 90 mcg/actuation 1 puff INHALATION Q4-6H PRN #18 08/29/18 aerosol inhaler gram warfarin 2 mg tablet 2 mg PO SUMOWETHFRSA #90 tab 09/18/19 alendronate 70 mg tablet See Rx Instructions .ROUTE 01/26/20 .COMPLEX #12 tab tiotropium bromide 18 mcg capsule See Rx Instructions .ROUTE 02/16/20 with inhalation device .COMPLEX #30 cap Allergies Allergy/AdvReac Type Severity Reaction Status Date / Time No Known Drug Allergies Allergy Verified 02/01/20 14:13 Review of Systems Review of Systems ROS Unobtainable: All systems reviewed & are unremarkable except as noted in HPI and below Patient History Medical History Atrial fibrillation (2013) Atrial fibrillation with RVR COPD (chronic obstructive pulmonary disease) Hypertension Lung cancer (2006) Osteoarthritis Osteoporosis (2015) Ovarian cancer (1994) Uterine cancer (1994) Surgical History Anesthesia History of bilateral salpingo-oophorectomy (BSO) History of breast augmentation (1992) History of hip replacement (01/2013) History of oophorectomy (1994) History of pneumonectomy (05/2007) Status post hysterectomy (1994) Family History Father Hypertension Prostate cancer Grandfather Stroke Grandmother Diabetes mellitus Mother Diabetes mellitus, type II Hypertension Stroke Grandfather No problems noted. Grandmother No problems noted. Social History marital status: unmarried,single household members: none lives independently: Yes pets and animals: Yes education level: college occupational status: other Smoking Status: Former smoker Tobacco: How many years used: 19 alcohol intake: current substance use type: does not use Smoking Status: Former smoker alcohol intake frequency: holidays/special occasions only Substance Use Type: does not use Exam Narrative Exam Narrative: GEN: well nourished, well appearing female, alert and oriented x 3, patient appears to be in mild distress. HEENT: Scalp laceration on right posterior scalp which has been sutured. Dry blood is still present patient's hair but no new blood appears present, pupils are equal round reactive to light, extraocular movements are intact, nares are clear, TMs are clear with no fluid, there is no conjunctival pallor. Throat is clear without any exudates, erythema, tonsillar enlargement or uvular deviation, no facial droop. Normal speech. HEART: Regular rate and rhythm without murmur, clicks, rubs. LUNGS:Lungs clear to auscultation, no wheezes, rales, crackles, chest moves symmetrically ABD:bowel sounds normal, soft, non-tender, no guarding, rebound, rigidity, no masses noted, no hepatosplenomegaly BACK: No cervical, thoracic or lumbar vertebral point tenderness. Patient has normal range of motion. MSCL: Non-tender, no muscle atrophy, muscles strength 5/5 upper and lower extremities, full range of motion. NEURO:CN 2-12 intact, sensation normal Initial Vital Signs Initial Vital Signs: Vital Signs Temperature 97.6 F 02/29/20 17:05 Pulse Rate 80 02/29/20 17:05 Respiratory Rate 16 02/29/20 17:05 Blood Pressure 147/106 H 02/29/20 17:05 Pulse Oximetry 93 02/29/20 17:05 Scores GCS Blaine coma scale eye opening: Spontaneous Blaine coma scale verbal response: Orientated Blaine coma scale motor response: Obey commands Bland coma scale total score: 15 Course Orders Ordered: Discontinued Medications Carvedilol (Carvedilol 3.125 Mg Tablet) 3.125 mg PO NOW ONE Stop: 02/29/20 19:17 Last Admin: 02/29/20 19:27 Dose: 3.125 mg Documented by: RMARTIN Flecainide Acetate (Flecainide 100 Mg Tablet) 100 mg PO NOW ONE Stop: 02/29/20 19:17 Last Admin: 02/29/20 19:27 Dose: 100 mg Documented by: RMARTIN Sodium Chloride (Normal Saline 0.9%) 1,000 mls @ 150 mls/hr IV CONT PIEDAD Last Infusion: 02/29/20 22:03 Dose: 0 mls/hr Documented by: Admin: 02/29/20 17:30 Dose: 150 mls/hr Documented by: RMARTIN Sodium Chloride (Normal Saline 0.9%) 1,000 mls @ 1,000 mls/hr IV BOLUS ONE Stop: 02/29/20 18:28 Last Admin: 02/29/20 22:03 Dose: Not Given Documented by: EMILY Vital Signs Vital signs: Vital Signs - 8 hr 02/29/20 17:05 02/29/20 17:30 02/29/20 17:52 Temperature 97.6 F Pulse Rate 80 92 H 74 Respiratory Rate 16 23 24 Blood Pressure 147/106 H 144/124 H 173/78 H Pulse Oximetry 93 02/29/20 18:00 02/29/20 18:07 02/29/20 18:30 Temperature Pulse Rate 78 73 80 Respiratory Rate 29 H 18 19 Blood Pressure 171/78 H 152/79 H Pulse Oximetry 99 98 98 02/29/20 19:00 02/29/20 19:25 02/29/20 19:27 Temperature Pulse Rate 108 H 83 Respiratory Rate 25 H Blood Pressure 140/84 140/84 Pulse Oximetry 99 02/29/20 19:30 02/29/20 20:00 02/29/20 20:30 Temperature Pulse Rate 81 74 88 Respiratory Rate 29 H 19 19 Blood Pressure 133/72 98/53 L 99/69 Pulse Oximetry 97 96 98 MDM - Syncope Lab Data Attestation: I reviewed the patient's lab results. Lab results narrative: CBC no major changes, INR still elevated at 2.7, chemistry do not show any acute changes from earlier today. Troponin is negative. Result diagrams: 02/29/20 18:09 02/29/20 18:09 Labs: Lab Results 02/29/20 02/29/20 02/29/20 Range/Units 18:09 18:09 18:09 WBC 10.4 D (4.5-11.0) X10^3/uL RBC 4.36 (4.0-5.2) X10^6/uL Hgb 12.8 (12.0-16.0) g/dL Hct 38.7 (36-46) % MCV 88.7 (80-100) fL MCH 29.4 (26-34) PG MCHC 33.1 (30-36) % RDW 14.9 H (11.6-14.8) % Plt Count 261 (150-400) X10^3/uL Neut % (Auto) 85.7 H (50-75) % Lymph % (Auto) 7.8 L (25-40) % [place] % (Auto) 5.8 (3-14) % Eos % (Auto) 0.4 L (2-4) % Baso % (Auto) 0.3 (0-2) % Neut # (Auto) 8900 H (2594-3251) /uL Lymph # (Auto) 800 L (1736-1679) /uL [place] # (Auto) 600 (0-900) /uL Eos # (Auto) 0 (0-450) /uL Baso # (Auto) 0 (0-100) /uL PT 31.1 H (10.1-12.7) SECONDS INR 2.7 H (0.9-1.3) Sodium 136 L (137-145) mmol/L Potassium 4.0 (3.4-5.1) mmol/L Chloride 98 (98-107) mmol/L Carbon Dioxide 34 H (22-32) mmol/L BUN 19 H (7-17) mg/dL Creatinine 0.70 (0.52-1.04) mg/dL Estimated GFR > 60.0 (>60) mL/min BUN/Creatinine Ratio 27.1 H (6-22) Glucose 115 H (80-110) mg/dL Calcium 9.7 (8.4-10.2) mg/dL Total Bilirubin 1.0 (0.2-1.3) mg/dL AST 37 H (14-36) IU/L ALT 22 (<35) IU/L Alkaline Phosphatase 73 (38-126) U/L Total Creatine Kinase 138 H (30-135) U/L CK-MB (CK-2) 2.29 (<2.37) ng/mL CK-MB (CK-2) Rel Index 1.7 (1.5-5.0) % Troponin I < 0.012 (0.01-0.034) ng/mL Total Protein 7.4 (6.3-8.2) g/dL Albumin 4.2 (3.5-5.0) g/dL Globulin 3.2 (1.7-4.1) g/dL Albumin/Globulin Ratio 1.3 (1.0-2.8) Point of Care Testing Glucose POC [address] scan - head: Radiologist's Impression: [address] [id number] Scan ReportSigned Patient: Cecille Toledo [facility]#: [id number]: 1940Acct:[id number]/Sex: 79 / FDate of Service: 02/29/20Loc: EDAccession Number: [id number] Procedure: CT head/brain wo con Ordering Provider: Jayla Fraser D.O. PROCEDURE: CT HEAD/BRAIN WO CON INDICATIONS: pre-syncope, had head injury earlier today, laceration of scalp TECHNIQUE: Noncontrast 4.5 mm thick angled axial sections acquired from the foramen magnum to the vertex, with coronal and sagittal reformats. For radiation dose reduction, the following was used: automated exposure control, adjustment of mA and/or kV according to patient size. COMPARISON: [facility], MR, BRAIN WITH AND WITHOUT CONTRAS, 05/01/2007, 7:54. [facility], CT, CT HEAD/BRAIN WO CON, 09/06/2019, 11:20. [facility], CT, HEAD WITHOUT CONTRAST, 11/09/2013, 21:55. [facility], CT, HEAD WITHOUT CONTRAST, 05/08/2013, 15:50. [facility], CT, CT CERVICAL SPINE WO CON, 02/29/2020, 17:36. [facility], CT, CT HEAD/BRAIN WO CON, 02/29/2020, 12:51. FINDINGS: Image quality: Excellent. CSF spaces: Basal cisterns are patent. No extra-axial fluid collections. The ventricles are symmetric in size and shape. Brain: No intracranial bleeds or masses. There is cerebral volume loss for age, with resultant ventricular and sulcal prominence. There are periventricular and deep white matter chronic small vessel ischemic changes. There is intracranial internal carotid artery atherosclerosis. Skull and face: There is again seen a right parietal region scalp hematoma with a repaired laceration. No underlying calvarial fracture is seen. Calvarium and visualized facial bones appear intact, without suspicious lesions. Sinuses: Visualized sinuses and mastoids are clear. IMPRESSION: No interval development of intracranial hemorrhage. Repaired right posterior scalp laceration. Dictated by: Javed Person M.D. on 02/29/2020 at 17:03 Approved by: Javed Person M.D. on 02/29/2020 at 17:05 CT Cspine: Radiologist's Impression: [address] [id number] Scan ReportSigned Patient: Cecille Toledo [facility]#: [id number]: 1940Acct:[id number]/Sex: 79 / FDate of Service: 02/29/20Loc: EDAccession Number: [id number] Procedure: CT cervical spine wo con Ordering Provider: Jayla Fraser D.O. PROCEDURE: CT CERVICAL SPINE WO CON INDICATIONS: presyncope TECHNIQUE: Noncontrast 3 mm thick sections acquired from the skull base to the T4 level. Sagittal and coronal reformats were then constructed. For radiation dose reduction, the following was used: automated exposure control, adjustment of mA and/or kV according to patient size. COMPARISON: [facility], CT, THORAX WITHOUT CONTRAST, 11/27/2016, 12:53. [facility], CT, CT HEAD/BRAIN WO CON, 02/29/2020, 12:51. [facility], CT, CT HEAD/BRAIN WO CON, 02/29/2020, 17:36. [facility], CT, CT CERVICAL SPINE WO CON, 09/06/2019, 11:20. FINDINGS: Image quality: Excellent. Bones: No fractures or dislocations. Visualized superior ribs are intact. Advanced degenerative changes are seen. Partial fusion can be seen at C3-C4.Grade 1 anterolisthesis is again seen at the C4-C5 level. Moderate to severe disc space narrowing is seen at C5-C6 and C6-C7. Levoconvex thoracic scoliotic curvature is seen. Soft tissues: Prevertebral soft tissues are normal in thickness. No paravertebral hematomas. No apical pneumothoraces. Soft tissue postoperative changes are seen, with apparent right pneumonectomy with mediastinal shift to the right. IMPRESSION: No acute fractures are seen. Multiple levels of cervical spine degenerative change are seen, which are similar to the prior. Dictated by: Javed Person M.D. on 02/29/2020 at 17:05 Approved by: Javed Person M.D. on 02/29/2020 at 17:08 Chest x-ray: Radiologist's Impression: [address] [id number] ReportSigned Patient: Cecille Toledo [facility]#: [id number]: 1940Acct:[id number]/Sex: 79 / FDate of Service: 02/29/20Loc: EDAccession Number: [id number] Procedure: XR chest 1V Ordering Provider: Jayla Fraser D.O. PROCEDURE: XR CHEST 1V INDICATIONS: presyncope TECHNIQUE: One view of the chest was acquired. COMPARISON: [facility], CR, XR CHEST 2V, 09/09/2018, 15:23. FINDINGS: Surgical changes and devices: Postsurgical changes noted within the right hemithorax unchanged from the study dated September 09, 2018. Lungs and pleura: The right lung is surgically absent. The left lung is clear. No left pleural effusion or pneumothorax. Mediastinum: Mediastinal contours appear normal. Heart size is normal. Bones and chest wall: No suspicious bony lesions. Overlying soft tissues appear unremarkable. IMPRESSION: Postsurgical change. No acute left pulmonary findings. Dictated by: Kaitlyn Salgado M.D. on 02/29/2020 at 18:31 Approved by: Kaitlyn Salgado M.D. on 02/29/2020 at 18:32 ECG Data Attestation: I personally reviewed and interpreted this ECG as follows: Prior ECG tracings: available for review Interpretation: Sinus rhythm first-degree AV block rate of 79, P are 296, QRS of 114 and QTC 472. Similar appearing on prior 09/19/18 [facility] Narrative Medical decision making narrative: Patient came in her symptoms have improved, head CT, C-spine was included in this time as well as chest x-ray were negative. EKG shows sinus rhythm but she does appear to have a lengthened year interval. Patient developed AFib just prior to discharge she does have known history, he is fully anticoagulated. She has not had her flecainide or carvedilol this evening so those doses were ordered. Patient's labs do not show any major abnormalities other than elevated INR. This is actually trending down words. Discussed with patient I would like to try her oral medications as I prefer not to sedate and cardiovert her head this time as she had a head trauma earlier today. She has not had any continued using or issues with her posterior scalp. Repeat EKG shows patient changed to sinus rhythm. No new ST changes. Discharge Plan Departure Patient Disposition: Home Clinical Impression: Pre-syncope Head injury Qualifiers: Encounter type: subsequent encounter Qualified Code(s): S09.90XD - Unspecified injury of head, subsequent encounter Instructions: Closed Head Injury Activity Restrictions/Additional Instructions: Follow-up with your physician in the next several days for recheck. You did have some intermittent episodes of atrial fibrillation here in the department. I would recommend taking it easy over the next several days. Return for severe headaches, vision changes, lightheadedness or passing out that persists, new chest pain, shortness of breath, swelling in your extremities, persistent vomiting or any other new or concerning symptoms. Prescriptions: No Action cholecalciferol (vitamin D3) [Vitamin D3] 1,000 UNIT tablet 2,000 units PO DAILY Qty: 0 RF: 0 albuterol sulfate [Ventolin HFA] 90 mcg/actuation HFA aerosol inhaler 1 puff INHALATION Q4-6H PRN (Reason: shortness of breath) Qty: 18 RF: 0 warfarin [Coumadin] 2 mg tablet 2 mg PO Qty: 90 RF: 3 carvedilol 6.25 mg tablet 3.125 mg PO BID RF: 0 alendronate 70 mg tablet See Rx Instructions .ROUTE .COMPLEX Qty: 12 RF: 0 tiotropium bromide [Spiriva with HandiHaler] 18 mcg capsule, w/inhalation device See Rx Instructions .ROUTE .COMPLEX Qty: 30 RF: 1 calcium carbonate-vitamin D3 [Calcium 600 + D(3)] 600 mg(1,500mg) -200 unit Tablet 2 tab PO DAILY RF: 0 multivitamin with minerals Tablet 1 tab PO DAILY RF: 0 multivitamin with minerals [Hair,Skin and Nails] Tablet 1 tab PO DAILY RF: 0 flecainide 100 mg Tablet 100 mg PO Q12H RF: 0 Referrals: Rosio Puckett MD [Primary Care Provider] -
[2020-02-29 18:18] LABS: Add Manual Diff / Slide Review NO; Basophils Absolute Auto 0 /uL (0-100); Basophils Percent Auto 0.3 % (0-2); Eosinophils Absolute Auto 0 /uL (0-450); Eosinophils Percent Auto 0.4 % (2-4); Hematocrit 38.7 % (36-46); Hemoglobin 12.8 g/dL (12.0-16.0); Lymphocytes Absolute Auto 800 /uL (1100-4500); Lymphocytes Percent Auto 7.8 % (25-40); Mean Corpuscular HGB Conc 33.1 % (30-36); Mean Corpuscular Hemoglobin 29.4 PG (26-34); Mean Corpuscular Volume 88.7 fL (80-100); Monocytes Absolute Auto 600 /uL (0-900); Monocytes Percent Auto 5.8 % (3-14); Neutrophils Absolute Auto 8900 /uL (1500-7000); Neutrophils Percent Auto 85.7 % (50-75); Platelet Count 261 X10^3/uL (150-400); Red Blood Cell Count 4.36 X10^6/uL (4.0-5.2); Red Cell Distribution Width 14.9 % (11.6-14.8); White Blood Cell Count 10.4 X10^3/uL (4.5-11.0)
[2020-02-29 18:30] LABS: INR 2.7 (0.9-1.3); Prothrombin Time 31.1 SECONDS (10.1-12.7)
[2020-02-29 18:40] LABS: Alanine Aminotransferase 22 IU/L (<35); Albumin 4.2 g/dL (3.5-5.0); Albumin Globulin Ratio 1.3 (1.0-2.8); Alkaline Phosphatase 73 U/L (38-126); Aspartate Aminotransferase 37 IU/L (14-36); BUN Creatinine Ratio 27.1 (6-22); Blood Urea Nitrogen 19 mg/dL (7-17); Calcium 9.7 mg/dL (8.4-10.2); Carbon Dioxide 34 mmol/L (22-32); Chloride 98 mmol/L (98-107); Creatine Kinase 138 U/L (30-135); Estimated Glomerular Filt Rate > 60.0 mL/min (>60); Globulin 3.2 g/dL (1.7-4.1); Glucose 115 mg/dL (80-110); HEMOLYSIS 19 (0-50); Sodium 136 mmol/L (137-145); Total Protein 7.4 g/dL (6.3-8.2)
[2020-02-29 18:52] LABS: Troponin I < 0.012 ng/mL (0.01-0.034)
[2020-02-29 18:55] LABS: CKMB % Relative Index 1.7 % (1.5-5.0); Creatine Kinase MB 2.29 ng/mL (<2.37)
--- NOTE | 2020-02-29 19:16 | PC.NURSE ---
Addendum entered by Emerald Diaz R.N. 02/29/20 19:27: EKG ordered. Original Note: Patient heart rate 129 on monitor. Patient denies chest pain, shortness of breath, or dizziness. History of A FIB. Provider notified and aware, ordering patients home AFIB medication. Will continue to monitor.
[2020-02-29] MEDS: FLECAINIDE 100 MG TABLET PO (19:27)
[2020-02-29] MEDS: carvediloL 3.125 MG TABLET PO (19:27)
== END 2020-02-29 22:04 | disposition home or self-care (01) ==
PROVIDERS: Emergency Provider Emergency Medicine; PCP Family Medicine
DX: R55 Syncope and collapse (principal); I48.91 Unspecified atrial fibrillation; Z79.01 Long term (current) use of anticoagulants; S01.01XA Laceration without foreign body of scalp, initial encounter; I44.0 Atrioventricular block, first degree; S09.90XA Unspecified injury of head, initial encounter; R79.1 Abnormal coagulation profile; W01.190A Fall on same level from slipping, tripping and stumbling with subsequent striking against furniture, initial encounter
CPT/HCPCS: 12001; 70450; 71045; 72125; 80048; 80053; 82550; 82553; 82962; 84484; 85025; 85610; 85730; 93005; 96360; 96361; 99281; 99284

== ENCOUNTER → 2020-04-07 10:03 | Outpatient (CLI) | payer MEDICARE, OTHER, SELFPAY ==
[2019-10-01 17:54] VITALS: BMI 19.5
== END ==
PROVIDERS: Family Provider Family Medicine; PCP Family Medicine; Referring Provider Family Medicine; Visit Provider Family Medicine
DX: S01.00XA Unspecified open wound of scalp, initial encounter (principal); Z79.01 Long term (current) use of anticoagulants
CPT/HCPCS: 11042; 99204; 99213

== ENCOUNTER → 2020-04-11 11:01 | Outpatient (CLI) | payer MEDICARE, OTHER, SELFPAY ==
[2019-10-01 17:54] VITALS: BMI 19.5
== END ==
PROVIDERS: Family Provider Family Medicine; PCP Family Medicine; Referring Provider Family Medicine; Visit Provider Family Medicine
DX: S00.01XA Abrasion of scalp, initial encounter (principal)
CPT/HCPCS: 99212

== ENCOUNTER → 2020-04-14 13:44 | Outpatient (CLI) | payer MEDICARE, OTHER, SELFPAY ==
[2019-10-01 17:54] VITALS: BMI 19.5
== END ==
PROVIDERS: Family Provider Family Medicine; PCP Family Medicine; Referring Provider Family Medicine; Visit Provider Family Medicine
DX: S01.00XA Unspecified open wound of scalp, initial encounter (principal); Z79.01 Long term (current) use of anticoagulants
CPT/HCPCS: 11042

== ENCOUNTER → 2020-04-18 10:07 | Outpatient (CLI) | payer MEDICARE, OTHER, SELFPAY ==
[2019-10-01 17:54] VITALS: BMI 19.5
== END ==
PROVIDERS: Family Provider Family Medicine; PCP Family Medicine; Referring Provider Family Medicine; Visit Provider Family Medicine
DX: S01.01XA Laceration without foreign body of scalp, initial encounter (principal)
CPT/HCPCS: 99212

== ENCOUNTER → 2020-04-21 14:49 | Outpatient (CLI) | payer MEDICARE, OTHER, SELFPAY ==
[2019-10-01 17:54] VITALS: BMI 19.5
== END ==
PROVIDERS: Family Provider Family Medicine; PCP Family Medicine; Referring Provider Family Medicine; Visit Provider Family Medicine
DX: S01.00XD Unspecified open wound of scalp, subsequent encounter (principal)
CPT/HCPCS: 99212; 99213

== ENCOUNTER → 2020-05-24 09:24 | Outpatient (CLI) | payer MEDICARE, OTHER, SELFPAY ==
[2019-10-01 17:54] VITALS: BMI 19.5
--- NOTE | 2020-05-24 09:28 | DI.MG.S_ITS ---
UNILATERAL RIGHT DIGITAL DIAGNOSTIC MAMMOGRAM 3D/2D: 05/24/2020 CLINICAL: Short term follow up of the right breast. Comparison is made to exams dated: 12/04/2019 ultrasound, 12/04/2019 mammogram, and 11/25/2019 mammogram - [facility]. The tissue of right breast is heterogeneously dense. This may lower the sensitivity of mammography. There is a benign density in the right breast upper outer quadrant, likely related to prior implant. The 0.4 cm asymmetry in the right breast sub-areolar depth central to the nipple is is less prominent. No other significant masses or calcifications are seen in the breast. IMPRESSION: INCOMPLETE: NEEDS ADDITIONAL IMAGING EVALUATION The 0.4 cm asymmetry in the right breast is less prominent and without suspicious change. An ultrasound is recommended to document stability. This was performed immediately following this exam. This exam was interpreted at Station ID: [id number]. NOTE: For mammograms, a report in lay terms will be sent to the patient. Approximately 15% of breast malignancies will not be visualized mammographically. In the management of a palpable breast mass, a negative mammogram must not discourage biopsy of a clinically suspicious lesion. Electronically Signed By: Vivienne anthony/:05/24/2020 11:38:36 ACR BI-RADS Category 0: Incomplete [id number]
--- NOTE | 2020-05-24 09:28 | DI.US.S_ITS ---
LIMITED ULTRASOUND OF RIGHT BREAST: 05/24/2020 CLINICAL: 6 month follow-up of cysts. Comparison is made to exams dated: 05/24/2020 mammogram, 12/04/2019 ultrasound, 12/04/2019 mammogram, 11/25/2019 mammogram, and 10/28/2018 mammogram - [facility]. Color flow ultrasound of the right breast 9 o'clock, and retroareolar regions was performed. Abreu scale images of the real-time examination were reviewed. The nodular tissue in the 9:00 retroareolar right breast no longer has a cystic appearance, but appears like normal fibroglandular tissue and is similar to the rest of the retroareolar tissue. NO abnormal vascularity. No significant abnormalities were seen sonographically in the right breast. IMPRESSION: NEGATIVE There is no sonographic evidence of malignancy. Normal tissue in the retroareaolar area is stable. Return to annual mammogram screening schedule is recommended. Findings and recommendations were conveyed to the patient at time of exam. This exam was interpreted at Station ID: [id number]. Electronically Signed By: Vivienne anthony/:05/24/2020 16:44:25 letter sent: Normal Exam Ultrasound BI-RADS: 1 Negative
== END ==
PROVIDERS: Family Provider Family Medicine; PCP Family Medicine; Referring Provider Family Medicine; Visit Provider Family Medicine
DX: R92.8 Other abnormal and inconclusive findings on diagnostic imaging of breast (principal); N60.09 Solitary cyst of unspecified breast
CPT/HCPCS: 76642; 77065; G0279

== ENCOUNTER → 2020-07-04 11:15 | Outpatient (CLI) | payer MEDICARE, OTHER, SELFPAY ==
[2019-10-01 17:54] VITALS: BMI 19.5
[2020-07-04 12:05] LABS: Appearance Urine UA SL CLOUDY; Bilirubin Urine UA NEGATIVE (NEGATIVE); Color Urine UA YELLOW; Glucose Urine UA NEGATIVE (Negative); Ketones Urine UA NEGATIVE (NEGATIVE); Leukocyte Esterase Urine UA 1+ (NEGATIVE); Nitrite Urine UA NEGATIVE (Negative); Occult Blood Urine UA 1+ (Negative); Protein Urine UA NEGATIVE (Negative); Specific Gravity Urine UA 1.015 (1.000-1.035); Urobilinogen Urine UA 0.2 E.U./dL (0.2)
[2020-07-04 12:17] LABS: Bacteria Urine Few (2-10); Culture Indicated Urine Specimen Cultured; RBC Urine 1-5/HPF (0-5/HPF); WBC Urine >100/HPF (0-5/HPF)
== END ==
PROVIDERS: Family Provider Family Medicine; PCP Family Medicine; Referring Provider Family Medicine; Visit Provider Family Medicine
DX: R30.0 Dysuria (principal); R31.9 Hematuria, unspecified; R35.0 Frequency of micturition; R39.15 Urgency of urination; R82.90 Unspecified abnormal findings in urine
CPT/HCPCS: 81001; 87086

== ENCOUNTER → 2020-07-22 14:19 | Outpatient (CLI) | payer MEDICARE, OTHER, SELFPAY ==
[2019-10-01 17:54] VITALS: BMI 19.5
[2020-07-22 14:37] LABS: Add Manual Diff / Slide Review NO; Basophils Absolute Auto 0 /uL (0-100); Basophils Percent Auto 0.6 % (0-2); Eosinophils Absolute Auto 0 /uL (0-450); Eosinophils Percent Auto 0.4 % (2-4); Hematocrit 33.6 % (36-46); Hemoglobin 10.4 g/dL (12.0-16.0); Lymphocytes Absolute Auto 1200 /uL (1100-4500); Lymphocytes Percent Auto 20.6 % (25-40); Mean Corpuscular Hemoglobin 24.9 PG (26-34); Mean Corpuscular Volume 80.1 fL (80-100); Monocytes Absolute Auto 600 /uL (0-900); Monocytes Percent Auto 10.4 % (3-14); Neutrophils Absolute Auto 4100 /uL (1500-7000); Platelet Count 250 X10^3/uL (150-400); Red Cell Distribution Width 18.2 % (11.6-14.8)
[2020-07-22 14:52] LABS: Alanine Aminotransferase 19 IU/L (<35); Albumin 4.1 g/dL (3.5-5.0); Albumin Globulin Ratio 1.5 (1.0-2.8); Alkaline Phosphatase 60 U/L (38-126); Aspartate Aminotransferase 34 IU/L (14-36); BUN Creatinine Ratio 41.4 (6-22); Bilirubin Total 0.5 mg/dL (0.2-1.3); Blood Urea Nitrogen 29 mg/dL (7-17); Carbon Dioxide 32 mmol/L (22-32); Chloride 99 mmol/L (98-107); Estimated Glomerular Filt Rate > 60.0 mL/min (>60); Globulin 2.8 g/dL (1.7-4.1); Glucose 105 mg/dL (80-110); HEMOLYSIS < 15 (0-50); Potassium 4.2 mmol/L (3.4-5.1); Sodium 137 mmol/L (137-145); Total Protein 6.9 g/dL (6.3-8.2)
== END ==
PROVIDERS: Internal Medicine Hematology & Oncology; Family Provider Family Medicine; PCP Family Medicine; Referring Provider Family Medicine; Visit Provider Family Medicine
DX: C54.1 Malignant neoplasm of endometrium (principal)
CPT/HCPCS: 36415; 80053; 85025

== ENCOUNTER → 2020-08-09 11:33 | Outpatient (CLI) | payer MEDICARE, OTHER, SELFPAY ==
[2019-10-01 17:54] VITALS: BMI 19.5
[2020-08-10 12:42] LABS: Fecal Immunochemical Test Negative (Negative)
== END ==
PROVIDERS: Family Provider Family Medicine; PCP Family Medicine; Referring Provider Internal Medicine Hematology & Oncology; Visit Provider Internal Medicine Hematology & Oncology
DX: D50.9 Iron deficiency anemia, unspecified (principal)
CPT/HCPCS: 82274

== ENCOUNTER → 2020-08-29 12:47 | Outpatient (CLI) | payer MEDICARE, OTHER, SELFPAY ==
[2019-10-01 17:54] VITALS: BMI 19.5
--- NOTE | 2020-08-29 13:20 | DI.RAD.S_ITS ---
PROCEDURE: XR KNEE LT 3V INDICATIONS: left knee pain s/p fall TECHNIQUE: 3 views of the knee were acquired. COMPARISON: None. FINDINGS: Linear lucencies involving the patellar raise the possibility of a nondisplaced subtle patellar fracture, although this could be better assessed with CT or MRI. Scattered degenerative subchondral sclerosis and spurring. Mild to moderate narrowing of the medial lateral joint spaces. Soft tissues: Moderate joint effusion. Anterior soft tissue swelling IMPRESSION: Moderate joint effusion. Findings highly suspicious for nondisplaced hairline patellar fracture. Further confirmation with cross-sectional imaging recommended as clinically warranted. Dictated by: Triston Rogel M.D. on 08/29/2020 at 15:01 Approved by: Triston Rogel M.D. on 08/29/2020 at 15:04
== END ==
PROVIDERS: Family Provider Family Medicine; PCP Family Medicine; Referring Provider Family Medicine; Visit Provider Family Medicine
DX: M25.562 Pain in left knee (principal); M25.462 Effusion, left knee
CPT/HCPCS: 73562

== ENCOUNTER → 2020-09-06 09:25 | Outpatient (CLI) | payer MEDICARE, OTHER, SELFPAY ==
[2019-10-01 17:54] VITALS: BMI 19.5
--- NOTE | 2020-09-06 09:30 | DI.MRI.S_ITS ---
PROCEDURE: MR KNEE LT WO CON INDICATIONS: left knee pain TECHNIQUE: Noncontrast sagittal PD fast spin echo and T2 fast spin echo with fat saturation, sagittal 3-D FLASH with fat saturation; coronal T1 spin echo and PD fast spin echo with fat saturation, and axial PD fast spin echo with fat saturation through the knee. COMPARISON: None. FINDINGS: Image quality: Excellent. Menisci: Peripheral displacement of medial meniscus bowing medial collateral ligament is seen. Complex oblique tear involving posterior horn of medial meniscus is seen extending to inferior articulating surface. Diminutive appearance of the lateral meniscus is noted suggestive of chronic complex tear involving lateral meniscus versus prior partial lateral meniscectomy. Peripheral displacement of lateral meniscal remanent is seen bowing lateral collateral ligament. The meniscal root ligaments appear intact. Cruciate ligaments: The anterior and posterior cruciate ligaments appear intact. Medial structures: Low-grade MCL sprain/intrasubstance partial-thickness tear is seen. The posterior oblique ligament, semimembranosus tendon insertions, oblique popliteal ligament, and meniscocapsular junction appear intact. Visualized portions of the pes anserinus tendons appear normal. No abnormal bursal fluid. Lateral structures: There is moderate grade sprain/partial-thickness tear involving lateral collateral ligament. The long and short heads of the biceps femoris tendon appear intact. The popliteus tendon appears normal; the popliteofibular ligament appears intact. The posterosuperior and anteroinferior popliteomeniscal fascicles appear intact. The arcuate and fabellofibular ligaments appear intact, on either side of the lateral inferior geniculate artery. Iliotibial band appears normal. Anterior structures: Soft tissue swelling and edema anterior to patella and patella tendon is seen with suggestion of fluid distension of prepatellar bursa. The quadriceps and patellar tendons appear intact. Patellar alignment is normal. No femoral trochlear dysplasia or ventral trochlear prominence. No edema in the infrapatellar fat pad. Bones and cartilage: Severe lateral femoral tibial compartment osteoarthritis and chondromalacia is seen with near complete loss of articulating cartilages and marrow edema involving posterior lateral femoral condyle and adjacent lateral tibial plateau. Diffuse marrow edema involving patella is also seen with subtle linear hypointense signal involving medial portion of patella suggestive of a nondisplaced patellar fracture. Joint space: There is large amount of joint fluid, no gross intra-articular loose body. A popliteal cyst is seen and measures 2.8 x 2.3 x 6 cm in size. Normal appearing synovial plicae are incidentally noted. IMPRESSION: 1. Finding is suggestive of a nondisplaced fracture involving medial portion of patella with extensive edema. 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 2. Moderate to large joint effusion, no gross loose body. 3. Soft tissue swelling and edema involving anterior aspect of patella and patellar tendon suggestive of soft tissue contusion and hematoma formation. Underlying prepatellar bursitis cannot be excluded. 4. 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 Oblique tear involving posterior horn of medial meniscus extending to inferior articulating surface. 5. Cruciate ligaments are intact. Low-grade MCL sprain/partial-thickness tear and moderate grade LCL sprain/partial-thickness tear. Dictated by: Luís Pablo M.D. on 09/06/2020 at 10:38 Approved by: Luís Pablo M.D. on 09/06/2020 at 10:48
== END ==
PROVIDERS: Family Provider Family Medicine; PCP Family Medicine; Referring Provider Family Medicine; Visit Provider Family Medicine
DX: M25.562 Pain in left knee (principal); S83.232A Complex tear of medial meniscus, current injury, left knee, initial encounter; S83.412A Sprain of medial collateral ligament of left knee, initial encounter; S83.422A Sprain of lateral collateral ligament of left knee, initial encounter; M17.12 Unilateral primary osteoarthritis, left knee; M94.262 Chondromalacia, left knee; M25.462 Effusion, left knee; M79.89 Other specified soft tissue disorders
CPT/HCPCS: 73721

== ENCOUNTER 2020-12-08 17:57 | Emergency (ER) | payer MEDICARE, OTHER, SELFPAY ==
[2019-10-01 17:54] VITALS: BMI 19.5
[2020-12-08 18:02] VITALS: BP 200/88; PULSE 72; RESP 16; TEMP 36.9; O2SAT 96; BMI 19.3
--- NOTE | 2020-12-08 18:09 | DI.RAD.S_ITS ---
PROCEDURE: XR ANKLE RT MIN 3V INDICATIONS: ankle swelling TECHNIQUE: 3 views of the ankle were acquired. COMPARISON: None. FINDINGS: Bones: No fractures or dislocations. Ankle mortise is normally aligned. No suspicious bony lesions. Scattered degenerative subchondral sclerosis and spurring. Soft tissues: Lateral soft tissue swelling. IMPRESSION: Lateral soft tissue swelling. If the patient's pain or other symptoms persist, consider further evaluation with MRI Dictated by: Triston Rogel M.D. on 12/08/2020 at 18:38 Approved by: Triston Rogel M.D. on 12/08/2020 at 18:40
--- NOTE | 2020-12-08 18:10 | ED.EXTPRO ---
HPI - Extremity Problem General Chief complaint: Extremity Problem,Nontraumatic Stated complaint: Lump on right leg- hard and sore Time Seen by Provider: 12/08/20 18:06 Mode of arrival: Ambulatory Limitations: no limitations History of Present Illness HPI Narrative: Patient is an 80-year-old female who is sent from the walk-in clinic for evaluation of a lump on the outside of her right ankle. She states that she noticed it within the past week. No specific trauma. She is on Coumadin. No fevers. She did notice some bruising under it earlier today. She can walk like normal. She contacted her primary doctor who could not see her so she went to the walk-in clinic who was busy so she was sent to the emergency department. Related Data Home Medications Medication Instructions Recorded Confirmed cholecalciferol (vitamin D3) 25 2,000 units PO DAILY #0 06/19/16 11/28/20 mcg (1,000 unit) tablet (Vitamin D3) calcium carbonate 600 mg (1,500 2 tab PO DAILY 06/24/18 11/28/20 mg)-vitamin D3 200 unit tablet (Calcium 600 + D(3)) multivitamin with minerals 1 tab PO DAILY 06/24/18 11/28/20 multivitamin with minerals 1 tab PO DAILY 07/27/19 11/28/20 (Hair,Skin and Nails) carvedilol 6.25 mg tablet 3.125 mg PO BID 10/23/19 11/28/20 flecainide 100 mg tablet 100 mg PO Q12H 01/25/20 11/28/20 Previous Rx's Medication Instructions Recorded alendronate 70 mg tablet See Rx Instructions .ROUTE 08/05/20 .COMPLEX #12 tab ferrous sulfate 325 mg (65 mg 325 mg PO DAILY #90 tab 09/01/20 iron) tablet warfarin 2 mg tablet See Rx Instructions .ROUTE 09/13/20 .COMPLEX #90 tab tiotropium bromide 18 mcg capsule See Rx Instructions .ROUTE 10/11/20 with inhalation device (Spiriva .COMPLEX #30 cap with HandiHaler) Allergies Allergy/AdvReac Type Severity Reaction Status Date / Time No Known Drug Allergies Allergy Verified 11/09/20 10:10 Review of Systems Musculoskeletal Musculoskeletal: Reports system reviewed and no additional complaints, except as documented and Reports as per HPI Integumentary/Breasts Skin/Breast: Reports system reviewed and no additional complaints, except as documented and Reports as per HPI Neurologic Neurologic: Reports system reviewed and no additional complaints, except as documented and Reports as per HPI Hematologic/Lymphatic On Anticoagulants: Yes Patient History Medical History Atrial fibrillation (2013) Atrial fibrillation with RVR COPD (chronic obstructive pulmonary disease) Hypertension Lung cancer (2006) Osteoarthritis Osteoporosis (2015) Ovarian cancer (1994) Raynauds syndrome (12/14/10) Uterine cancer (1994) Surgical History Anesthesia History of bilateral salpingo-oophorectomy (BSO) History of breast augmentation (1992) History of hip replacement (01/2013) History of oophorectomy (1994) History of pneumonectomy (05/2007) Status post hysterectomy (1994) Family History Father Hypertension Prostate cancer Grandfather Stroke Grandmother Diabetes mellitus Mother Diabetes mellitus, type II Hypertension Stroke Grandfather No problems noted. Grandmother No problems noted. Social History marital status: unmarried,single household members: none lives independently: Yes pets and animals: Yes education level: college occupational status: other Smoking Status: Former smoker Tobacco: How many years used: 19 alcohol intake: current substance use type: does not use Smoking Status: Former smoker alcohol intake frequency: holidays/special occasions only Substance Use Type: does not use Exam Initial Vital Signs Initial Vital Signs: Vital Signs Temperature 98.4 F 12/08/20 18:02 Pulse Rate 72 12/08/20 18:02 Respiratory Rate 16 12/08/20 18:02 Blood Pressure 200/88 H 12/08/20 18:02 Pulse Oximetry 96 12/08/20 18:02 HENTX Head: normal to inspection Skin Other: Patient does have some area of ecchymosis just anterior to the lateral malleolus on the right. Neuro General: patient alert, patient awake, patient oriented x3 and moves all extremities Extrem Other: Patient's right knee and right fibula unremarkable. Right ankle is unremarkable. She does have a 2 cm x 2 cm mass just anterior to the lateral malleolus on the right. Psych Appearance: grossly normal and well kempt Course Orders Ordered: ED Orders 12/08/20 18:09 XR ankle RT min 3V Stat Discontinued Medications Lidocaine/Sodium Bicarbonate (Lido 1%/Sod Bicarb 8.4% (10ml) 10 Ml Syringe) 10 ml INJ NOW ONE Stop: 12/08/20 18:19 Last Admin: 12/08/20 18:44 Dose: 10 ml Documented by: AG Vital Signs Vital signs: Vital Signs - 8 hr 12/08/20 18:02 Temperature 98.4 F Pulse Rate 72 Respiratory Rate 16 Blood Pressure 200/88 H Pulse Oximetry 96 MDM - Extremity (Nontraumatic) Imaging Data Extremity x-ray #1: Radiologist's Impression: [address] [address] XRay Report Signed Patient: Cecille Toledo MR#: [id number] : 1940 Acct:[id number] Age/Sex: 80 / F Date of Service: 12/08/20 Loc: ED Accession Number: [id number] ?? Procedure: XR ankle RT min 3V Ordering Provider: Dhiraj Tolentino D.O. PROCEDURE:? XR ANKLE RT MIN 3V ? INDICATIONS:? ankle swelling ? TECHNIQUE:? 3 views of the ankle were acquired.? ? COMPARISON:? None. ? FINDINGS:? ? Bones:? No fractures or dislocations.? Ankle mortise is normally aligned.? No suspicious bony lesions.? Scattered degenerative subchondral sclerosis and spurring.? ? Soft tissues:? Lateral soft tissue swelling. ? ? IMPRESSION:? Lateral soft tissue swelling.? If the patient's pain or other symptoms persist, consider further evaluation with MRI ? Dictated by: Triston Rogel M.D. on 12/08/2020 at 18:38 ? ? Approved by: Triston Rogel M.D. on 12/08/2020 at 18:40?? [facility] Narrative Medical decision making narrative: A bedside ultrasound did show a fluid collection in the area where the mass is located. I did discuss options with her to include incision and drainage verses a needle aspiration. Informed her that I have a low suspicion that this is an abscess based on her physical exam and more suspicious that this is a blood clot. She opted for the needle aspiration. I was able to express a very small amount of blood from the area. I suspect that this is either a spontaneous bleed or a bleed due to a trauma because of the Coumadin. X-ray did not show any signs of a fracture. I did discuss the findings with her. She was given care instructions and return precautions. She expressed understanding and agreement. Discharge Plan Departure Patient Disposition: Home Clinical Impression: Hematoma Instructions: DI for Hematoma (Bruise) Activity Restrictions/Additional Instructions: Continue to take all of your medications as directed. Do not be surprised if you noticed more bruising around the outside of your right ankle. You can use ice over the area. Contact your primary doctor for a follow-up. Return to the emergency department for any new or worsening symptoms Prescriptions: No Action cholecalciferol (vitamin D3) [Vitamin D3] 1,000 UNIT tablet 2,000 units PO DAILY Qty: 0 RF: 0 carvedilol 6.25 mg tablet 3.125 mg PO BID RF: 0 alendronate 70 mg tablet See Rx Instructions .ROUTE .COMPLEX Qty: 12 RF: 2 warfarin 2 mg tablet See Rx Instructions .ROUTE .COMPLEX Qty: 90 RF: 0 Spiriva with HandiHaler 18 mcg capsule, w/inhalation device See Rx Instructions .ROUTE .COMPLEX Qty: 30 RF: 2 calcium carbonate-vitamin D3 [Calcium 600 + D(3)] 600 mg(1,500mg) -200 unit Tablet 2 tab PO DAILY RF: 0 multivitamin with minerals Tablet 1 tab PO DAILY RF: 0 multivitamin with minerals [Hair,Skin and Nails] Tablet 1 tab PO DAILY RF: 0 flecainide 100 mg Tablet 100 mg PO Q12H RF: 0 ferrous sulfate 325 mg (65 mg iron) Tablet 325 mg PO DAILY Qty: 90 RF: 3 Referrals: Rosio Puckett MD [Primary Care Provider] -
[2020-12-08] MEDS: LIDO 1%/SOD BICARB 8.4% (10ML) 10 ML SYRINGE INJ (18:44)
--- NOTE | 2020-12-08 18:45 | PC.NURSE ---
Patient c/o new onset right ankle pain, she is able to walk on the right foot without pain but the ankle is tender to the touch. Denies pain in toes and able to wiggle toes. Patient is going on vacation soon and wanted to rule out any problems with her lower extremity prior to travel.
[2020-12-08 18:49] VITALS: BP 195/90; PULSE 70; RESP 18; O2SAT 96
== END 2020-12-08 18:52 | disposition home or self-care (01) ==
PROVIDERS: Emergency Provider Emergency Medicine; PCP Family Medicine
DX: S90.01XA Contusion of right ankle, initial encounter (principal); Z79.01 Long term (current) use of anticoagulants
CPT/HCPCS: 73610; 99283

== ENCOUNTER → 2021-01-06 15:18 | Outpatient (CLI) | payer MEDICARE, OTHER, SELFPAY ==
[2019-10-01 17:54] VITALS: BMI 19.5
== END ==
PROVIDERS: PCP Family Medicine; Referring Provider Physician Assistant; Visit Provider Physician Assistant
DX: I48.0 Paroxysmal atrial fibrillation (principal)
CPT/HCPCS: 36415

== ENCOUNTER 2021-02-01 13:00 | Outpatient (RCR) | payer MEDICARE, OTHER, SELFPAY ==
[2019-10-01 17:54] VITALS: BMI 19.5
--- NOTE | 2021-01-02 15:50 | PT.OIE ---
Current Diagnoses Other abnormalities of gait and mobility (01/02/21) Unspecified fracture of left patella, subsequent encounter for closed fracture with routine healing (01/02/21) History of falling (01/02/21) Past Medical History (Last Reviewed 12/08/20 @ 18:53 by Dhiraj Tolentino DO) Atrial fibrillation (2013) Atrial fibrillation with RVR COPD (chronic obstructive pulmonary disease) History of oophorectomy (1994) History of pneumonectomy (05/2007) Hypertension Lung cancer (2006) Osteoarthritis Osteoporosis (2015) Ovarian cancer (1994) Raynauds syndrome (12/14/10) Uterine cancer (1994) Past Surgical History (Last Reviewed 02/29/20 @ 19:05 by Jayla Fraser DO) Anesthesia History of bilateral salpingo-oophorectomy (BSO) History of breast augmentation (1992) History of hip replacement (01/2013) History of oophorectomy (1994) History of pneumonectomy (05/2007) Status post hysterectomy (1994) Visit Care Team Role Provider Type Rosio Puckett MD Attending Provider Physician Primary Care Provider Referring Provider Specialty: [facility] Address: [address] [place] [address] Email: [email or web address] Physical Therapy Initial Evaluation PT-OP-A Visit Information Start: 01/02/21 08:19 Freq: Status: Active Protocol: Document 01/02/21 13:45 AMB (Rec: 01/03/21 10:42 AMB [email or web address]) Out-Patient Physical Therapy Visit Information Visit Information Visit Type Initial Evaluation Visit Start Time 13:45 Visit Stop Time 14:30 Total Visit Minutes 45 Visit Number 1 PT-OP-B Current Condition Start: 01/02/21 08:19 Freq: Status: Active Protocol: Document 01/02/21 13:46 AMB (Rec: 01/02/21 13:59 AMB [id number]) Current Condition History of Current Condition Onset Date August 2020. Current Complaints L knee patellar fx History of Current Condition Cecille fractured her left patella in a fall in August, went straight down on her knee in the bathroom. That is the only fall she has had in 6 months. Walking down hill is challenging, walks her standard poodle. Walks down 15 stairs and needs to hang on to the railing- feels like her knees would give out. Lives alone in a 2 story home (but can live on one level) with 2 steps to enter without railing but does have a post she can hold onto. Prior Functional Status Baseline Function- ADL's Independent Baseline Function- Mobility Independent Personal Factors Other Personal Factors That May Effect L ALBINA 01/2013. Hx lung cancer Therapy/Recovery 2007. COPD. Osteoporosis. Chronic anticoagulation with warfarin, a fib, hx endometrial and ovarian cancer in 1994. PT-OP-G Mobility & Gait Start: 01/02/21 08:19 Freq: Status: Active Protocol: Document 01/02/21 13:45 AMB (Rec: 01/03/21 11:00 AMB [email or web address]) OP Gait Assessment Comments Gait Comments Genu valgus bilaterally L>R. Trendelenburg gait. L>R. Stair Climbing Evaluation Comments Stair Climbing Comments Heavy need for railing. Step over step descending created near LOB, but pt was able to independently recover. PT-OP-M Strength Start: 01/02/21 08:19 Freq: Status: Active Protocol: Document 01/02/21 13:45 AMB (Rec: 01/03/21 11:00 AMB [email or web address]) Hip Strength Hip Manual Muscle Testing Right Flexion (L2) 4 Good Extension (S1) 4 Good Abduction 4 Good Left Flexion (L2) 4 Good Extension (S1) 3 Fair Abduction 4 Good Knee Strength Knee Manual Muscle Testing Right Flexion (S2) 5 Normal Extension (L3) 5 Normal Left Flexion (S2) 4 Good Extension (L3) 4 Good Ankle/Foot Strength Ankle and Foot Manual Muscle Testing Right Dorsiflexion (L4) 5 Normal Plantarflexion (S1) 5 Normal Left Dorsiflexion (L4) 4 Good Plantarflexion (S1) 4 Good PT-OP-T Assessment and Plan Start: 01/02/21 08:19 Freq: Status: Active Protocol: Document 01/02/21 13:45 AMB (Rec: 01/03/21 12:59 AMB [email or web address]) Physical Therapy Assessment Rehab Potential Rehabilitation Potential Good Evaluation Complexity Number of Personal Factors/Comorbidities 3 or More Number of Body Systems Impaired 4 or More Clinical Presentation at Evaluation Evolving Impairments Impairments Activity Tolerance,Functional Activities,Functional Mobility ,Gait,Pain,Strength Goals Two Impairment Gait/stairs Short Term Goal (STG) Cecille will ambulate over smooth terrain for 6 minutes without LOB. STG Duration 4 weeks Bowling Ball Grader Goal (LTG) Cecille will ascend and descend a flight of stair with 1 railing and an alternating gait pattern without LOB. LTG Duration 8 weeks One Impairment Strength Short Term Goal (STG) Cecille will be independent with a HEP for LE strengthening. STG Duration 4 weeks Half-Way Goal (LTG) Cecille will show improved LE strength by moving from sit to stand without UE support. LTG Duration 8 weeks Assessment Summary Assessment Cecille attends physical therapy 4 months s/p L patellar fracture. She exhibited weakness L>R in both musculature surrounding her knee and hip. She does have a history of L ALBINA posterior approach and notes that her walking has been different since that surgery, although her pain is much better. She does ambulate with increased genu valgus and has a functional weakness of her glutes that exacerbates her reduced safety with descending stairs. She will benefit from physical therapy to assist her with a strengthening program to improve her gait and stair safety. Physical Therapy Plan Frequency and Duration Frequency of Treatment 2x/Week Duration of Treatment 8 weeks Plan of Care Start Date 01/02/21 Plan of Care End Date 02/20/21 Therapeutic Interventions Therapeutic Interventions Home Exercise Program,Manual Therapy,Neuromuscular Re- education,Self-Care/Home Management,Therapeutic Activities,Therapeutic Exercises Modalities Cold Pack/Ice Massage,Electric Stimulation,Hot Packs Next Visit Focus/Plan Next Note Type Treatment Note Next Visit Plan Progress HEP, started with balwinder
--- NOTE | 2021-01-02 15:51 | PT.OPPOC ---
Physical, Occupational & Speech Therapy At [facility] Current Diagnoses Other abnormalities of gait and mobility (01/02/21) Unspecified fracture of left patella, subsequent encounter for closed fracture with routine healing (01/02/21) History of falling (01/02/21) Visit Care Team Role Provider Type Rosio Puckett MD Attending Provider Physician Primary Care Provider Referring Provider Specialty: [facility] Address: [address] [place] [address], [facility] [place], [address] Email: [email or web address] Plan Of Care PT-OP-T Assessment and Plan Start: 01/02/21 08:19 Freq: Status: Active Protocol: Document 01/02/21 13:45 AMB (Rec: 01/03/21 12:59 AMB [email or web address]) Physical Therapy Assessment Rehab Potential Rehabilitation Potential Good Evaluation Complexity Number of Personal Factors/Comorbidities 3 or More Number of Body Systems Impaired 4 or More Clinical Presentation at Evaluation Evolving Impairments Impairments Activity Tolerance,Functional Activities,Functional Mobility ,Gait,Pain,Strength Goals Two Impairment Gait/stairs Short Term Goal (STG) Cecille will ambulate over smooth terrain for 6 minutes without LOB. STG Duration 4 weeks Skilled Nursing Goal (LTG) Cecille will ascend and descend a flight of stair with 1 railing and an alternating gait pattern without LOB. LTG Duration 8 weeks One Impairment Strength Short Term Goal (STG) Cecille will be independent with a HEP for LE strengthening. STG Duration 4 weeks Skilled Nursing Goal (LTG) Cecille will show improved LE strength by moving from sit to stand without UE support. LTG Duration 8 weeks Assessment Summary Assessment Cecille attends physical therapy 4 months s/p L patellar fracture. She exhibited weakness L>R in both musculature surrounding her knee and hip. She does have a history of L ALBINA posterior approach and notes that her walking has been different since that surgery, although her pain is much better. She does ambulate with increased genu valgus and has a functional weakness of her glutes that exacerbates her reduced safety with descending stairs. She will benefit from physical therapy to assist her with a strengthening program to improve her gait and stair safety. Physical Therapy Plan Frequency and Duration Frequency of Treatment 2x/Week Duration of Treatment 8 weeks Plan of Care Start Date 01/02/21 Plan of Care End Date 02/20/21 Therapeutic Interventions Therapeutic Interventions Home Exercise Program,Manual Therapy,Neuromuscular Re- education,Self-Care/Home Management,Therapeutic Activities,Therapeutic Exercises Modalities Cold Pack/Ice Massage,Electric Stimulation,Hot Packs Next Visit Focus/Plan Next Note Type Treatment Note Next Visit Plan Progress HEP, started with bridge and clamshell Plan of Care Dates Plan of Care Start Date 01/02/21 Plan of Care End Date 02/20/21 Electronically Signed by: Lynn Wilks, PT 01/03/21 1602 Please Sign and Return: I have reviewed this Plan of Care and certify that the skilled therapy services above are required to meet the patient?s needs. Physician Signature Date Printed Name and Credentials Clinical Instructor Signature Printed Name and Credentials
--- NOTE | 2021-01-04 15:50 | PT.OTN ---
Current Diagnoses Other abnormalities of gait and mobility (01/04/21) Unspecified fracture of left patella, subsequent encounter for closed fracture with routine healing (01/04/21) History of falling (01/04/21) Physical Therapy Treatment Note PT-OP-A Visit Information Start: 01/02/21 08:19 Freq: Status: Active Protocol: Document 01/04/21 10:30 AMB (Rec: 01/04/21 15:50 AMB [email or web address]) Out-Patient Physical Therapy Visit Information Visit Information Visit Type Treatment Note Visit Start Time 10:30 Visit Stop Time 11:15 Total Visit Minutes 45 Visit Number 2 PT-OP-B Current Condition Start: 01/02/21 08:19 Freq: Status: Active Protocol: Document 01/02/21 13:46 AMB (Rec: 01/02/21 13:59 AMB [id number]) Current Condition History of Current Condition Onset Date August 2020. Current Complaints L knee patellar fx History of Current Condition Cecille fractured her left patella in a fall in August, went straight down on her knee in the bathroom. That is the only fall she has had in 6 months. Walking down hill is challenging, walks her standard poodle. Walks down 15 stairs and needs to hang on to the railing- feels like her knees would give out. Lives alone in a 2 story home (but can live on one level) with 2 steps to enter without railing but does have a post she can hold onto. Prior Functional Status Baseline Function- ADL's Independent Baseline Function- Mobility Independent Personal Factors Other Personal Factors That May Effect L ALBINA 01/2013. Hx lung cancer Therapy/Recovery 2007. COPD. Osteoporosis. Chronic anticoagulation with warfarin, a fib, hx endometrial and ovarian cancer in 1994. PT-OP-C Subjective Start: 01/02/21 08:19 Freq: Status: Active Protocol: Document 01/04/21 10:30 AMB (Rec: 01/04/21 15:50 AMB [email or web address]) OP-PT Subjective Patient Comments Patient Comments Pt states the exercises are going well. Knee is a little sore. PT-OP-G Mobility & Gait Start: 01/02/21 08:19 Freq: Status: Active Protocol: Document 01/02/21 13:45 AMB (Rec: 01/03/21 11:00 AMB [email or web address]) OP Gait Assessment Comments Gait Comments Genu valgus bilaterally L>R. Trendelenburg gait. L>R. Stair Climbing Evaluation Comments Stair Climbing Comments Heavy need for railing. Step over step descending created near LOB, but pt was able to independently recover. PT-OP-M Strength Start: 01/02/21 08:19 Freq: Status: Active Protocol: Document 01/02/21 13:45 AMB (Rec: 01/03/21 11:00 AMB [email or web address]) Hip Strength Hip Manual Muscle Testing Right Flexion (L2) 4 Good Extension (S1) 4 Good Abduction 4 Good Left Flexion (L2) 4 Good Extension (S1) 3 Fair Abduction 4 Good Knee Strength Knee Manual Muscle Testing Right Flexion (S2) 5 Normal Extension (L3) 5 Normal Left Flexion (S2) 4 Good Extension (L3) 4 Good Ankle/Foot Strength Ankle and Foot Manual Muscle Testing Right Dorsiflexion (L4) 5 Normal Plantarflexion (S1) 5 Normal Left Dorsiflexion (L4) 4 Good Plantarflexion (S1) 4 Good PT-OP-Q Treatments Start: 01/02/21 08:19 Freq: Status: Active Protocol: Document 01/04/21 10:30 AMB (Rec: 01/04/21 15:50 AMB [email or web address]) Cardio Equipment Recumbent Elliptical (Biodex) Duration (Minutes) 3 Other didn't work very well genu valgus Recumbent Bicycle Duration (Minutes) 3 Other didn't work very well- genu valgus worse Gym Equipment Shuttle Recovery Bilateral Squats Resistance 62 Shuttle Recovery Platform Stable Reps/Time 2x12 Therapeutic Exercises Standing Exercises 4 Standing Exercise Name sit to stand Reps/Minutes x5 Comments cues for eccentric control 3 Standing Exercise Name hip abduction Resistance t band #2 Reps/Minutes 2x10 2 Standing Exercise Name hip extension Resistance t band #2 Comments 2x10 1 Standing Exercise Name wall squat Comments didn't work well PT-OP-T Assessment and Plan Start: 01/02/21 08:19 Freq: Status: Active Protocol: Document 01/04/21 10:30 AMB (Rec: 01/04/21 15:50 AMB [email or web address]) Physical Therapy Assessment Assessment Summary Assessment Cecille did well with standing t band exercises, biking and wall squats didn't really work well, instructed in good eccentric control with sit to stand. Physical Therapy Plan Next Visit Focus/Plan Next Note Type Treatment Note Next Visit Plan Progress HEP, standing t band, calvin urbina
--- NOTE | 2021-01-09 15:38 | PT.OTN ---
Current Diagnoses Other abnormalities of gait and mobility (01/09/21) Unspecified fracture of left patella, subsequent encounter for closed fracture with routine healing (01/09/21) History of falling (01/09/21) Physical Therapy Treatment Note PT-OP-A Visit Information Start: 01/02/21 08:19 Freq: Status: Active Protocol: Document 01/09/21 13:00 AMB (Rec: 01/09/21 13:48 AMB [id number]) Out-Patient Physical Therapy Visit Information Visit Information Visit Type Treatment Note Visit Start Time 13:00 Visit Stop Time 13:45 Total Visit Minutes 45 Visit Number 3 PT-OP-B Current Condition Start: 01/02/21 08:19 Freq: Status: Active Protocol: Document 01/02/21 13:46 AMB (Rec: 01/02/21 13:59 AMB [id number]) Current Condition History of Current Condition Onset Date August 2020. Current Complaints L knee patellar fx History of Current Condition Cecille fractured her left patella in a fall in August, went straight down on her knee in the bathroom. That is the only fall she has had in 6 months. Walking down hill is challenging, walks her standard poodle. Walks down 15 stairs and needs to hang on to the railing- feels like her knees would give out. Lives alone in a 2 story home (but can live on one level) with 2 steps to enter without railing but does have a post she can hold onto. Prior Functional Status Baseline Function- ADL's Independent Baseline Function- Mobility Independent Personal Factors Other Personal Factors That May Effect L ALBINA 01/2013. Hx lung cancer Therapy/Recovery 2007. COPD. Osteoporosis. Chronic anticoagulation with warfarin, a fib, hx endometrial and ovarian cancer in 1994. 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 HAs been working on eccentric control with stand to sit. PT-OP-G Mobility & Gait Start: 01/02/21 08:19 Freq: Status: Active Protocol: Document 01/02/21 13:45 AMB (Rec: 01/03/21 11:00 AMB [email or web address]) OP Gait Assessment Comments Gait Comments Genu valgus bilaterally L>R. Trendelenburg gait. L>R. Stair Climbing Evaluation Comments Stair Climbing Comments Heavy need for railing. Step over step descending created near LOB, but pt was able to independently recover. PT-OP-M Strength Start: 01/02/21 08:19 Freq: Status: Active Protocol: Document 01/02/21 13:45 AMB (Rec: 01/03/21 11:00 AMB [email or web address]) Hip Strength Hip Manual Muscle Testing Right Flexion (L2) 4 Good Extension (S1) 4 Good Abduction 4 Good Left Flexion (L2) 4 Good Extension (S1) 3 Fair Abduction 4 Good Knee Strength Knee Manual Muscle Testing Right Flexion (S2) 5 Normal Extension (L3) 5 Normal Left Flexion (S2) 4 Good Extension (L3) 4 Good Ankle/Foot Strength Ankle and Foot Manual Muscle Testing Right Dorsiflexion (L4) 5 Normal Plantarflexion (S1) 5 Normal Left Dorsiflexion (L4) 4 Good Plantarflexion (S1) 4 Good PT-OP-Q Treatments Start: 01/02/21 08:19 Freq: Status: Active Protocol: Document 01/09/21 13:00 AMB (Rec: 01/09/21 13:48 AMB [id number]) Gym Equipment Shuttle Recovery Bilateral Squats Resistance 50 Shuttle Recovery Platform Stable Reps/Time 2x15 Therapeutic Exercises Supine Exercises 1 Supine Exercise Name bridge with t band Reps/Minutes 2x10 Sidelying Exercises clamshell Reps/Minutes 2x10 Comments can try band abduction Reps/Minutes 2x10 Standing Exercises 4 Standing Exercise Name sit to stand Reps/Minutes x5 Comments cues for eccentric control 3 Standing Exercise Name hip abduction Resistance t band #2 Reps/Minutes 2x10 2 Standing Exercise Name hip extension Resistance t band #2 Comments 2x10 PT-OP-T Assessment and Plan Start: 01/02/21 08:19 Freq: Status: Active Protocol: Document 01/09/21 13:00 AMB (Rec: 01/09/21 13:48 AMB [id number]) Physical Therapy Assessment Goals Two Impairment Gait/stairs Short Term Goal (STG) Cecille will ambulate over smooth terrain for 6 minutes without LOB. STG Duration 4 weeks Intelligence Consultant Goal (LTG) Cecille will ascend and descend a flight of stair with 1 railing and an alternating gait pattern without LOB. LTG Duration 8 weeks One Impairment Strength Short Term Goal (STG) Cecille will be independent with a HEP for LE strengthening. STG Duration 4 weeks Shelter Goal (LTG) Cecille will show improved LE strength by moving from sit to stand without UE support. LTG Duration 8 weeks Assessment Summary Assessment Control when stepping off of step continues to be painful. Better control with sit to stand. Physical Therapy Plan Next Visit Focus/Plan Next Note Type Treatment Note Next Visit Plan Check pt's arches and consider off the shelf orthotics if necessary for continued genu valgus. Progress HEP, standing t band, bridge, clamshell
--- NOTE | 2021-01-12 14:19 | PT.OTN ---
Current Diagnoses Other abnormalities of gait and mobility (01/12/21) Unspecified fracture of left patella, subsequent encounter for closed fracture with routine healing (01/12/21) History of falling (01/12/21) Physical Therapy Treatment Note PT-OP-A Visit Information Start: 01/02/21 08:19 Freq: Status: Active Protocol: Document 01/12/21 13:00 AMB (Rec: 01/12/21 13:39 AMB [id number]) Out-Patient Physical Therapy Visit Information Visit Information Visit Type Treatment Note Visit Start Time 13:00 Visit Stop Time 13:45 Total Visit Minutes 45 Visit Number 4 PT-OP-B Current Condition Start: 01/02/21 08:19 Freq: Status: Active Protocol: Document 01/02/21 13:46 AMB (Rec: 01/02/21 13:59 AMB [id number]) Current Condition History of Current Condition Onset Date August 2020. Current Complaints L knee patellar fx History of Current Condition Cecille fractured her left patella in a fall in August, went straight down on her knee in the bathroom. That is the only fall she has had in 6 months. Walking down hill is challenging, walks her standard poodle. Walks down 15 stairs and needs to hang on to the railing- feels like her knees would give out. Lives alone in a 2 story home (but can live on one level) with 2 steps to enter without railing but does have a post she can hold onto. Prior Functional Status Baseline Function- ADL's Independent Baseline Function- Mobility Independent Personal Factors Other Personal Factors That May Effect L ALBINA 01/2013. Hx lung cancer Therapy/Recovery 2007. COPD. Osteoporosis. Chronic anticoagulation with warfarin, a fib, hx endometrial and ovarian cancer in 1994. PT-OP-C Subjective Start: 01/02/21 08:19 Freq: Status: Active Protocol: Document 01/12/21 13:00 AMB (Rec: 01/12/21 13:39 AMB [id number]) OP-PT Subjective Patient Comments Patient Comments Pt states she did her exercises earlier today. PT-OP-G Mobility & Gait Start: 01/02/21 08:19 Freq: Status: Active Protocol: Document 01/02/21 13:45 AMB (Rec: 01/03/21 11:00 AMB [email or web address]) OP Gait Assessment Comments Gait Comments Genu valgus bilaterally L>R. Trendelenburg gait. L>R. Stair Climbing Evaluation Comments Stair Climbing Comments Heavy need for railing. Step over step descending created near LOB, but pt was able to independently recover. PT-OP-M Strength Start: 01/02/21 08:19 Freq: Status: Active Protocol: Document 01/02/21 13:45 AMB (Rec: 01/03/21 11:00 AMB [email or web address]) Hip Strength Hip Manual Muscle Testing Right Flexion (L2) 4 Good Extension (S1) 4 Good Abduction 4 Good Left Flexion (L2) 4 Good Extension (S1) 3 Fair Abduction 4 Good Knee Strength Knee Manual Muscle Testing Right Flexion (S2) 5 Normal Extension (L3) 5 Normal Left Flexion (S2) 4 Good Extension (L3) 4 Good Ankle/Foot Strength Ankle and Foot Manual Muscle Testing Right Dorsiflexion (L4) 5 Normal Plantarflexion (S1) 5 Normal Left Dorsiflexion (L4) 4 Good Plantarflexion (S1) 4 Good PT-OP-Q Treatments Start: 01/02/21 08:19 Freq: Status: Active Protocol: Document 01/12/21 13:00 AMB (Rec: 01/12/21 13:39 AMB [id number]) Gym Equipment Shuttle Recovery Bilateral Squats Resistance 50 Shuttle Recovery Platform Stable Reps/Time 2x15 Therapeutic Exercises Supine Exercises 2 Supine Exercise Name SLR Reps/Minutes 2x10 Comments cues for terminal quad extension 1 Supine Exercise Name bridge with t band Reps/Minutes 2x10 Sidelying Exercises clamshell Reps/Minutes 2x10 abduction Reps/Minutes 2x10 Other Exercises quadupred hip extension Reps/Minutes 2x10 Manual Therapy Treatment Taping 1 Body Location 3 I strips on L patella Type of Tape Kinesio Tape PT-OP-T Assessment and Plan Start: 01/02/21 08:19 Freq: Status: Active Protocol: Document 01/12/21 13:46 AMB (Rec: 01/12/21 13:47 AMB [id number]) Physical Therapy Assessment Goals Two Impairment Gait/stairs Short Term Goal (STG) Cecille will ambulate over smooth terrain for 6 minutes without LOB. STG Duration 4 weeks Security Team Lead Goal (LTG) Cecille will ascend and descend a flight of stair with 1 railing and an alternating gait pattern without LOB. LTG Duration 8 weeks One Impairment Strength Short Term Goal (STG) Cecille will be independent with a HEP for LE strengthening. STG Duration 4 weeks Detention Goal (LTG) Cecille will show improved LE strength by moving from sit to stand without UE support. LTG Duration 8 weeks Assessment Summary Assessment Pat did well with PT today, good control with quadruped, no real tightness in IT band, but does have lateral knee pain and pain over patellar tendon. Physical Therapy Plan Next Visit Focus/Plan Next Note Type Treatment Note Next Visit Plan Check pt's arches and consider off the shelf orthotics if necessary for continued genu valgus. Progress HEP, standing t band, bridge, clamshell
--- NOTE | 2021-01-16 15:45 | PT.OTN ---
Current Diagnoses Other abnormalities of gait and mobility (01/16/21) Unspecified fracture of left patella, subsequent encounter for closed fracture with routine healing (01/16/21) History of falling (01/16/21) Physical Therapy Treatment Note PT-OP-A Visit Information Start: 01/02/21 08:19 Freq: Status: Active Protocol: Document 01/16/21 10:30 AMB (Rec: 01/16/21 11:17 AMB [id number]) Out-Patient Physical Therapy Visit Information Visit Information Visit Type Treatment Note Visit Start Time 10:30 Visit Stop Time 11:15 Total Visit Minutes 45 Visit Number 5 PT-OP-B Current Condition Start: 01/02/21 08:19 Freq: Status: Active Protocol: Document 01/02/21 13:46 AMB (Rec: 01/02/21 13:59 AMB [id number]) Current Condition History of Current Condition Onset Date August 2020. Current Complaints L knee patellar fx History of Current Condition Cecille fractured her left patella in a fall in August, went straight down on her knee in the bathroom. That is the only fall she has had in 6 months. Walking down hill is challenging, walks her standard poodle. Walks down 15 stairs and needs to hang on to the railing- feels like her knees would give out. Lives alone in a 2 story home (but can live on one level) with 2 steps to enter without railing but does have a post she can hold onto. Prior Functional Status Baseline Function- ADL's Independent Baseline Function- Mobility Independent Personal Factors Other Personal Factors That May Effect L ALBINA 01/2013. Hx lung cancer Therapy/Recovery 2007. COPD. Osteoporosis. Chronic anticoagulation with warfarin, a fib, hx endometrial and ovarian cancer in 1994. PT-OP-C Subjective Start: 01/02/21 08:19 Freq: Status: Active Protocol: Document 01/16/21 10:30 AMB (Rec: 01/16/21 11:17 AMB [id number]) OP-PT Subjective Patient Comments Patient Comments Taping didn't really seem to change anything, pt to look arch support online. Already did exercises today, pulmonary exercise class tomorrow. PT-OP-G Mobility & Gait Start: 01/02/21 08:19 Freq: Status: Active Protocol: Document 01/02/21 13:45 AMB (Rec: 01/03/21 11:00 AMB [email or web address]) OP Gait Assessment Comments Gait Comments Genu valgus bilaterally L>R. Trendelenburg gait. L>R. Stair Climbing Evaluation Comments Stair Climbing Comments Heavy need for railing. Step over step descending created near LOB, but pt was able to independently recover. PT-OP-M Strength Start: 01/02/21 08:19 Freq: Status: Active Protocol: Document 01/02/21 13:45 AMB (Rec: 01/03/21 11:00 AMB [email or web address]) Hip Strength Hip Manual Muscle Testing Right Flexion (L2) 4 Good Extension (S1) 4 Good Abduction 4 Good Left Flexion (L2) 4 Good Extension (S1) 3 Fair Abduction 4 Good Knee Strength Knee Manual Muscle Testing Right Flexion (S2) 5 Normal Extension (L3) 5 Normal Left Flexion (S2) 4 Good Extension (L3) 4 Good Ankle/Foot Strength Ankle and Foot Manual Muscle Testing Right Dorsiflexion (L4) 5 Normal Plantarflexion (S1) 5 Normal Left Dorsiflexion (L4) 4 Good Plantarflexion (S1) 4 Good PT-OP-Q Treatments Start: 01/02/21 08:19 Freq: Status: Active Protocol: Document 01/16/21 10:30 AMB (Rec: 01/16/21 15:45 AMB [email or web address]) Therapeutic Exercises Supine Exercises 1 Supine Exercise Name bridge with t band Reps/Minutes 2x10 Sidelying Exercises clamshell Resistance #2 band Reps/Minutes 2x10 abduction Reps/Minutes 2x10 Sitting Exercises 2 Sitting Exercise Name long arc quad Reps/Minutes 2# ankle weight Comments 2x10 Standing Exercises 4 Standing Exercise Name sit to stand Reps/Minutes 2x5 Comments cues for eccentric control Other Exercises quadupred hip extension Reps/Minutes 2x10 Self-Care/Home Management Treatment Activities Self-Care/Home Management Activities controlling over pronation worse on L, pt does have good arch supports, but they are foam and over a year old, so would recommend replacing them . Tried over the counter superfeet (black) but pt continued to display genu valgus and is more interested in pursuing something online. PT-OP-T Assessment and Plan Start: 01/02/21 08:19 Freq: Status: Active Protocol: Document 01/16/21 10:30 AMB (Rec: 01/16/21 11:17 AMB [id number]) Physical Therapy Assessment Assessment Summary Assessment Reinforced eccentric control with sit to stand, pt has limited strength with clamshell. Physical Therapy Plan Next Visit Focus/Plan Next Visit Plan try to progress eccentric control
--- NOTE | 2021-01-18 10:29 | PT.OTN ---
Current Diagnoses Other abnormalities of gait and mobility (01/18/21) Unspecified fracture of left patella, subsequent encounter for closed fracture with routine healing (01/18/21) History of falling (01/18/21) Physical Therapy Treatment Note PT-OP-A Visit Information Start: 01/02/21 08:19 Freq: Status: Active Protocol: Document 01/18/21 09:45 AMB (Rec: 01/18/21 10:46 AMB [id number]) Out-Patient Physical Therapy Visit Information Visit Information Visit Type Treatment Note Visit Start Time 09:45 Visit Stop Time 10:30 Total Visit Minutes 45 Visit Number 6 PT-OP-B Current Condition Start: 01/02/21 08:19 Freq: Status: Active Protocol: Document 01/02/21 13:46 AMB (Rec: 01/02/21 13:59 AMB [id number]) Current Condition History of Current Condition Onset Date August 2020. Current Complaints L knee patellar fx History of Current Condition Cecille fractured her left patella in a fall in August, went straight down on her knee in the bathroom. That is the only fall she has had in 6 months. Walking down hill is challenging, walks her standard poodle. Walks down 15 stairs and needs to hang on to the railing- feels like her knees would give out. Lives alone in a 2 story home (but can live on one level) with 2 steps to enter without railing but does have a post she can hold onto. Prior Functional Status Baseline Function- ADL's Independent Baseline Function- Mobility Independent Personal Factors Other Personal Factors That May Effect L ALBINA 01/2013. Hx lung cancer Therapy/Recovery 2007. COPD. Osteoporosis. Chronic anticoagulation with warfarin, a fib, hx endometrial and ovarian cancer in 1994. PT-OP-C Subjective Start: 01/02/21 08:19 Freq: Status: Active Protocol: Document 01/18/21 09:45 AMB (Rec: 01/18/21 15:57 AMB [email or web address]) OP-PT Subjective Patient Comments Patient Comments Pat continues to have grinding in the left knee when going down stairs/sit to stand PT-OP-G Mobility & Gait Start: 01/02/21 08:19 Freq: Status: Active Protocol: Document 01/02/21 13:45 AMB (Rec: 01/03/21 11:00 AMB [email or web address]) OP Gait Assessment Comments Gait Comments Genu valgus bilaterally L>R. Trendelenburg gait. L>R. Stair Climbing Evaluation Comments Stair Climbing Comments Heavy need for railing. Step over step descending created near LOB, but pt was able to independently recover. PT-OP-M Strength Start: 01/02/21 08:19 Freq: Status: Active Protocol: Document 01/02/21 13:45 AMB (Rec: 01/03/21 11:00 AMB [email or web address]) Hip Strength Hip Manual Muscle Testing Right Flexion (L2) 4 Good Extension (S1) 4 Good Abduction 4 Good Left Flexion (L2) 4 Good Extension (S1) 3 Fair Abduction 4 Good Knee Strength Knee Manual Muscle Testing Right Flexion (S2) 5 Normal Extension (L3) 5 Normal Left Flexion (S2) 4 Good Extension (L3) 4 Good Ankle/Foot Strength Ankle and Foot Manual Muscle Testing Right Dorsiflexion (L4) 5 Normal Plantarflexion (S1) 5 Normal Left Dorsiflexion (L4) 4 Good Plantarflexion (S1) 4 Good PT-OP-Q Treatments Start: 01/02/21 08:19 Freq: Status: Active Protocol: Document 01/18/21 09:45 AMB (Rec: 01/21/21 10:28 AMB [email or web address]) Gym Equipment Shuttle Recovery Bilateral Squats Resistance 50 Shuttle Recovery Platform Stable Reps/Time 2x15 Therapeutic Exercises Sidelying Exercises clamshell Resistance #2 band Reps/Minutes 2x10 abduction Reps/Minutes 2x10 Sitting Exercises 2 Sitting Exercise Name long arc quad Reps/Minutes 2# ankle weight Comments 2x10 Standing Exercises 4 Standing Exercise Name sit to stand Reps/Minutes 2x5 Comments cues for eccentric control 3 Standing Exercise Name hip abduction Resistance t band #2 Reps/Minutes 2x10 2 Standing Exercise Name hip extension Resistance t band #2 Comments 2x10 PT-OP-T Assessment and Plan Start: 01/02/21 08:19 Freq: Status: Active Protocol: Document 01/18/21 09:45 AMB (Rec: 01/18/21 15:57 AMB [email or web address]) Physical Therapy Assessment Goals Two Impairment Gait/stairs Short Term Goal (STG) Cecille will ambulate over smooth terrain for 6 minutes without LOB. STG Duration 4 weeks Trucking Supervisor Goal (LTG) Cecille will ascend and descend a flight of stair with 1 railing and an alternating gait pattern without LOB. LTG Duration 8 weeks One Impairment Strength Short Term Goal (STG) Cecille will be independent with a HEP for LE strengthening. STG Duration 4 weeks Trucking Supervisor Goal (LTG) Cecille will show improved LE strength by moving from sit to stand without UE support. LTG Duration 8 weeks Assessment Summary Assessment Pt is doing well with strengthening exercises, but continues to have grinding in patella with descending stairs. Physical Therapy Plan Next Visit Focus/Plan Next Note Type Treatment Note Next Visit Plan try to progress eccentric control
--- NOTE | 2021-01-24 15:27 | PT.OTN ---
Current Diagnoses Other abnormalities of gait and mobility (01/24/21) Unspecified fracture of left patella, subsequent encounter for closed fracture with routine healing (01/24/21) History of falling (01/24/21) Physical Therapy Treatment Note PT-OP-A Visit Information Start: 01/02/21 08:19 Freq: Status: Active Protocol: Document 01/24/21 09:00 AMB (Rec: 01/24/21 15:27 AMB [email or web address]) Out-Patient Physical Therapy Visit Information Visit Information Visit Type Treatment Note Visit Start Time 09:00 Visit Stop Time 09:45 Total Visit Minutes 45 Visit Number 7 PT-OP-B Current Condition Start: 01/02/21 08:19 Freq: Status: Active Protocol: Document 01/02/21 13:46 AMB (Rec: 01/02/21 13:59 AMB [id number]) Current Condition History of Current Condition Onset Date August 2020. Current Complaints L knee patellar fx History of Current Condition Cecille fractured her left patella in a fall in August, went straight down on her knee in the bathroom. That is the only fall she has had in 6 months. Walking down hill is challenging, walks her standard poodle. Walks down 15 stairs and needs to hang on to the railing- feels like her knees would give out. Lives alone in a 2 story home (but can live on one level) with 2 steps to enter without railing but does have a post she can hold onto. Prior Functional Status Baseline Function- ADL's Independent Baseline Function- Mobility Independent Personal Factors Other Personal Factors That May Effect L ALBINA 01/2013. Hx lung cancer Therapy/Recovery 2007. COPD. Osteoporosis. Chronic anticoagulation with warfarin, a fib, hx endometrial and ovarian cancer in 1994. PT-OP-C Subjective Start: 01/02/21 08:19 Freq: Status: Active Protocol: Document 01/24/21 09:00 AMB (Rec: 01/24/21 15:27 AMB [email or web address]) OP-PT Subjective Patient Comments Patient Comments Mariana is wondering if she's over doing it with her exercises, she feels a little more pain, but isn't sure which ones. PT-OP-G Mobility & Gait Start: 01/02/21 08:19 Freq: Status: Active Protocol: Document 01/02/21 13:45 AMB (Rec: 01/03/21 11:00 AMB [email or web address]) OP Gait Assessment Comments Gait Comments Genu valgus bilaterally L>R. Trendelenburg gait. L>R. Stair Climbing Evaluation Comments Stair Climbing Comments Heavy need for railing. Step over step descending created near LOB, but pt was able to independently recover. PT-OP-M Strength Start: 01/02/21 08:19 Freq: Status: Active Protocol: Document 01/02/21 13:45 AMB (Rec: 01/03/21 11:00 AMB [email or web address]) Hip Strength Hip Manual Muscle Testing Right Flexion (L2) 4 Good Extension (S1) 4 Good Abduction 4 Good Left Flexion (L2) 4 Good Extension (S1) 3 Fair Abduction 4 Good Knee Strength Knee Manual Muscle Testing Right Flexion (S2) 5 Normal Extension (L3) 5 Normal Left Flexion (S2) 4 Good Extension (L3) 4 Good Ankle/Foot Strength Ankle and Foot Manual Muscle Testing Right Dorsiflexion (L4) 5 Normal Plantarflexion (S1) 5 Normal Left Dorsiflexion (L4) 4 Good Plantarflexion (S1) 4 Good PT-OP-Q Treatments Start: 01/02/21 08:19 Freq: Status: Active Protocol: Document 01/24/21 09:00 AMB (Rec: 01/24/21 15:27 AMB [email or web address]) Therapeutic Exercises Supine Exercises 2 Supine Exercise Name SLR Reps/Minutes 2x10 Comments cues for terminal quad extension 1 Supine Exercise Name bridge with t band Reps/Minutes 2x10 Sidelying Exercises clamshell Resistance #2 band Reps/Minutes 2x10 abduction Reps/Minutes 2x10 Standing Exercises 4 Standing Exercise Name sit to stand Reps/Minutes 2x5 Comments cues for eccentric control 3 Standing Exercise Name hip abduction Resistance t band #2 Reps/Minutes 2x10 2 Standing Exercise Name hip extension Resistance t band #2 Comments 2x10 Other Exercises quadupred hip extension Reps/Minutes 2x10 PT-OP-T Assessment and Plan Start: 01/02/21 08:19 Freq: Status: Active Protocol: Document 01/24/21 09:00 AMB (Rec: 01/24/21 15:27 AMB [email or web address]) Physical Therapy Assessment Goals Two Impairment Gait/stairs Short Term Goal (STG) Cecille will ambulate over smooth terrain for 6 minutes without LOB. STG Duration 4 weeks Research And Development Engineer Goal (LTG) Cecille will ascend and descend a flight of stair with 1 railing and an alternating gait pattern without LOB. LTG Duration 8 weeks One Impairment Strength Short Term Goal (STG) Cecille will be independent with a HEP for LE strengthening. STG Duration 4 weeks Research And Development Engineer Goal (LTG) Cecille will show improved LE strength by moving from sit to stand without UE support. LTG Duration 8 weeks Assessment Summary Assessment Discussed pt's knee in depth with her. She is having more medial knee pain which could be more OA or MCL related. Patella seems to be doing well at this point, but medial knee pain is continuing. Physical Therapy Plan Next Visit Focus/Plan Next Note Type Treatment Note Next Visit Plan try to progress eccentric control
--- NOTE | 2021-01-27 11:41 | PT.OTN ---
Current Diagnoses Other abnormalities of gait and mobility (01/27/21) Unspecified fracture of left patella, subsequent encounter for closed fracture with routine healing (01/27/21) History of falling (01/27/21) Physical Therapy Treatment Note PT-OP-A Visit Information Start: 01/02/21 08:19 Freq: Status: Active Protocol: Document 01/27/21 10:30 AMB (Rec: 01/27/21 11:40 AMB [email or web address]) Out-Patient Physical Therapy Visit Information Visit Information Visit Type Treatment Note Visit Start Time 10:30 Visit Stop Time 11:15 Total Visit Minutes 45 Visit Number 8 PT-OP-B Current Condition Start: 01/02/21 08:19 Freq: Status: Active Protocol: Document 01/02/21 13:46 AMB (Rec: 01/02/21 13:59 AMB [id number]) Current Condition History of Current Condition Onset Date August 2020. Current Complaints L knee patellar fx History of Current Condition Cecille fractured her left patella in a fall in August, went straight down on her knee in the bathroom. That is the only fall she has had in 6 months. Walking down hill is challenging, walks her standard poodle. Walks down 15 stairs and needs to hang on to the railing- feels like her knees would give out. Lives alone in a 2 story home (but can live on one level) with 2 steps to enter without railing but does have a post she can hold onto. Prior Functional Status Baseline Function- ADL's Independent Baseline Function- Mobility Independent Personal Factors Other Personal Factors That May Effect L ALBINA 01/2013. Hx lung cancer Therapy/Recovery 2007. COPD. Osteoporosis. Chronic anticoagulation with warfarin, a fib, hx endometrial and ovarian cancer in 1994. PT-OP-C Subjective Start: 01/02/21 08:19 Freq: Status: Active Protocol: Document 01/27/21 10:30 AMB (Rec: 01/27/21 11:40 AMB [email or web address]) OP-PT Subjective Patient Comments Patient Comments Pt has done her exercises today PT-OP-G Mobility & Gait Start: 01/02/21 08:19 Freq: Status: Active Protocol: Document 01/02/21 13:45 AMB (Rec: 01/03/21 11:00 AMB [email or web address]) OP Gait Assessment Comments Gait Comments Genu valgus bilaterally L>R. Trendelenburg gait. L>R. Stair Climbing Evaluation Comments Stair Climbing Comments Heavy need for railing. Step over step descending created near LOB, but pt was able to independently recover. PT-OP-M Strength Start: 01/02/21 08:19 Freq: Status: Active Protocol: Document 01/02/21 13:45 AMB (Rec: 01/03/21 11:00 AMB [email or web address]) Hip Strength Hip Manual Muscle Testing Right Flexion (L2) 4 Good Extension (S1) 4 Good Abduction 4 Good Left Flexion (L2) 4 Good Extension (S1) 3 Fair Abduction 4 Good Knee Strength Knee Manual Muscle Testing Right Flexion (S2) 5 Normal Extension (L3) 5 Normal Left Flexion (S2) 4 Good Extension (L3) 4 Good Ankle/Foot Strength Ankle and Foot Manual Muscle Testing Right Dorsiflexion (L4) 5 Normal Plantarflexion (S1) 5 Normal Left Dorsiflexion (L4) 4 Good Plantarflexion (S1) 4 Good PT-OP-Q Treatments Start: 01/02/21 08:19 Freq: Status: Active Protocol: Document 01/27/21 10:30 AMB (Rec: 01/27/21 11:40 AMB [email or web address]) Therapeutic Exercises Supine Exercises 1 Supine Exercise Name bridge with t band Resistance #3 t band Reps/Minutes 2x10 Sidelying Exercises adduction Comments AROM 2x10 Sitting Exercises 1 Sitting Exercise Name roll in roll out Reps/Minutes 2x10 Standing Exercises 4 Standing Exercise Name sit to stand Reps/Minutes 2x5 Comments cues for eccentric control Manual Therapy Treatment Soft Tissue Mobilization 1 Body Location medial knee Mobilization Type Cross-Friction,Myofascial Release Manual Traction L LE Body Position Supine PT-OP-T Assessment and Plan Start: 01/02/21 08:19 Freq: Status: Active Protocol: Document 01/27/21 10:30 AMB (Rec: 01/27/21 11:40 AMB [email or web address]) Physical Therapy Assessment Goals Two Impairment Gait/stairs Short Term Goal (STG) Cecille will ambulate over smooth terrain for 6 minutes without LOB. STG Duration 4 weeks Custodial Goal (LTG) Cecille will ascend and descend a flight of stair with 1 railing and an alternating gait pattern without LOB. LTG Duration 8 weeks One Impairment Strength Short Term Goal (STG) Cecille will be independent with a HEP for LE strengthening. STG Duration 4 weeks Custodial Goal (LTG) Cecille will show improved LE strength by moving from sit to stand without UE support. LTG Duration 8 weeks Assessment Summary Assessment Pt felt better after manual therapy, given instruction to notice how long that benefit lasts. Physical Therapy Plan Next Visit Focus/Plan Next Note Type Treatment Note Next Visit Plan Review written HEP in prep for d/c
--- NOTE | 2021-01-30 15:51 | PT.OTN ---
Current Diagnoses Other abnormalities of gait and mobility (01/30/21) Unspecified fracture of left patella, subsequent encounter for closed fracture with routine healing (01/30/21) History of falling (01/30/21) Physical Therapy Treatment Note PT-OP-A Visit Information Start: 01/02/21 08:19 Freq: Status: Active Protocol: Document 01/30/21 14:30 AMB (Rec: 01/30/21 15:51 AMB [email or web address]) Out-Patient Physical Therapy Visit Information Visit Information Visit Type Treatment Note Visit Start Time 14:30 Visit Stop Time 15:15 Total Visit Minutes 45 Visit Number 9 PT-OP-B Current Condition Start: 01/02/21 08:19 Freq: Status: Active Protocol: Document 01/02/21 13:46 AMB (Rec: 01/02/21 13:59 AMB [id number]) Current Condition History of Current Condition Onset Date August 2020. Current Complaints L knee patellar fx History of Current Condition Cecille fractured her left patella in a fall in August, went straight down on her knee in the bathroom. That is the only fall she has had in 6 months. Walking down hill is challenging, walks her standard poodle. Walks down 15 stairs and needs to hang on to the railing- feels like her knees would give out. Lives alone in a 2 story home (but can live on one level) with 2 steps to enter without railing but does have a post she can hold onto. Prior Functional Status Baseline Function- ADL's Independent Baseline Function- Mobility Independent Personal Factors Other Personal Factors That May Effect L ALBINA 01/2013. Hx lung cancer Therapy/Recovery 2007. COPD. Osteoporosis. Chronic anticoagulation with warfarin, a fib, hx endometrial and ovarian cancer in 1994. PT-OP-C Subjective Start: 01/02/21 08:19 Freq: Status: Active Protocol: Document 01/30/21 14:30 AMB (Rec: 01/30/21 15:51 AMB [email or web address]) OP-PT Subjective Patient Comments Patient Comments Mariana is noticing more jasmine pain today. She has noticed this kind of pain since her hip replacement. PT-OP-G Mobility & Gait Start: 01/02/21 08:19 Freq: Status: Active Protocol: Document 01/02/21 13:45 AMB (Rec: 01/03/21 11:00 AMB [email or web address]) OP Gait Assessment Comments Gait Comments Genu valgus bilaterally L>R. Trendelenburg gait. L>R. Stair Climbing Evaluation Comments Stair Climbing Comments Heavy need for railing. Step over step descending created near LOB, but pt was able to independently recover. PT-OP-M Strength Start: 01/02/21 08:19 Freq: Status: Active Protocol: Document 01/02/21 13:45 AMB (Rec: 01/03/21 11:00 AMB [email or web address]) Hip Strength Hip Manual Muscle Testing Right Flexion (L2) 4 Good Extension (S1) 4 Good Abduction 4 Good Left Flexion (L2) 4 Good Extension (S1) 3 Fair Abduction 4 Good Knee Strength Knee Manual Muscle Testing Right Flexion (S2) 5 Normal Extension (L3) 5 Normal Left Flexion (S2) 4 Good Extension (L3) 4 Good Ankle/Foot Strength Ankle and Foot Manual Muscle Testing Right Dorsiflexion (L4) 5 Normal Plantarflexion (S1) 5 Normal Left Dorsiflexion (L4) 4 Good Plantarflexion (S1) 4 Good PT-OP-Q Treatments Start: 01/02/21 08:19 Freq: Status: Active Protocol: Document 01/30/21 14:30 AMB (Rec: 01/30/21 15:51 AMB [email or web address]) Therapeutic Exercises Supine Exercises 1 Supine Exercise Name bridge with t band Resistance #3 t band Reps/Minutes 2x10 Sitting Exercises 4 Sitting Exercise Name ant tib stretching Comments seated 3 Sitting Exercise Name ankle df AROM Comments 2x10 Manual Therapy Treatment Soft Tissue Mobilization 1 Body Location medial knee Mobilization Type Cross-Friction,Myofascial Release Manual Traction L LE Body Position Supine PT-OP-T Assessment and Plan Start: 01/02/21 08:19 Freq: Status: Active Protocol: Document 01/30/21 14:30 AMB (Rec: 01/30/21 15:51 AMB [email or web address]) Physical Therapy Assessment Assessment Summary Assessment Pt did well with ankle exercises, but does have difficulty lifting the left foot as much as the left. Almost like foot drop. Encouraged her to continue to work on heel strike with gait. Physical Therapy Plan Next Visit Focus/Plan Next Note Type Treatment Note Next Visit Plan Review written HEP in prep for d/c
--- NOTE | 2021-02-01 15:55 | PT.OTN ---
Current Diagnoses Other abnormalities of gait and mobility (02/01/21) Unspecified fracture of left patella, subsequent encounter for closed fracture with routine healing (02/01/21) History of falling (02/01/21) Physical Therapy Treatment Note PT-OP-A Visit Information Start: 01/02/21 08:19 Freq: Status: Active Protocol: Document 02/01/21 13:01 AMB (Rec: 02/01/21 13:38 AMB [id number]) Out-Patient Physical Therapy Visit Information Visit Information Visit Type Treatment Note PT-OP-B Current Condition Start: 01/02/21 08:19 Freq: Status: Active Protocol: Document 01/02/21 13:46 AMB (Rec: 01/02/21 13:59 AMB [id number]) Current Condition History of Current Condition Onset Date August 2020. Current Complaints L knee patellar fx History of Current Condition Cecille fractured her left patella in a fall in August, went straight down on her knee in the bathroom. That is the only fall she has had in 6 months. Walking down hill is challenging, walks her standard poodle. Walks down 15 stairs and needs to hang on to the railing- feels like her knees would give out. Lives alone in a 2 story home (but can live on one level) with 2 steps to enter without railing but does have a post she can hold onto. Prior Functional Status Baseline Function- ADL's Independent Baseline Function- Mobility Independent Personal Factors Other Personal Factors That May Effect L ALBINA 01/2013. Hx lung cancer Therapy/Recovery 2007. COPD. Osteoporosis. Chronic anticoagulation with warfarin, a fib, hx endometrial and ovarian cancer in 1994. PT-OP-C Subjective Start: 01/02/21 08:19 Freq: Status: Active Protocol: Document 01/30/21 14:30 AMB (Rec: 01/30/21 15:51 AMB [email or web address]) OP-PT Subjective Patient Comments Patient Comments Mariana is noticing more jasmine pain today. She has noticed this kind of pain since her hip replacement. PT-OP-G Mobility & Gait Start: 01/02/21 08:19 Freq: Status: Active Protocol: Document 01/02/21 13:45 AMB (Rec: 01/03/21 11:00 AMB [email or web address]) OP Gait Assessment Comments Gait Comments Genu valgus bilaterally L>R. Trendelenburg gait. L>R. Stair Climbing Evaluation Comments Stair Climbing Comments Heavy need for railing. Step over step descending created near LOB, but pt was able to independently recover. PT-OP-M Strength Start: 01/02/21 08:19 Freq: Status: Active Protocol: Document 01/02/21 13:45 AMB (Rec: 01/03/21 11:00 AMB [email or web address]) Hip Strength Hip Manual Muscle Testing Right Flexion (L2) 4 Good Extension (S1) 4 Good Abduction 4 Good Left Flexion (L2) 4 Good Extension (S1) 3 Fair Abduction 4 Good Knee Strength Knee Manual Muscle Testing Right Flexion (S2) 5 Normal Extension (L3) 5 Normal Left Flexion (S2) 4 Good Extension (L3) 4 Good Ankle/Foot Strength Ankle and Foot Manual Muscle Testing Right Dorsiflexion (L4) 5 Normal Plantarflexion (S1) 5 Normal Left Dorsiflexion (L4) 4 Good Plantarflexion (S1) 4 Good PT-OP-Q Treatments Start: 01/02/21 08:19 Freq: Status: Active Protocol: Document 02/01/21 13:00 AMB (Rec: 02/01/21 15:52 AMB [email or web address]) Therapeutic Exercises Sitting Exercises 1 Sitting Exercise Name roll in roll out Reps/Minutes 2x10 Standing Exercises 4 Standing Exercise Name sit to stand Reps/Minutes 2x5 Comments cues for eccentric control Manual Therapy Treatment Soft Tissue Mobilization 1 Body Location medial knee Mobilization Type Cross-Friction,Myofascial Release Joint Mobilizations 1 Joint patellofemoral Comments all planes Manual Traction L LE Body Position Supine PT-OP-T Assessment and Plan Start: 01/02/21 08:19 Freq: Status: Active Protocol: Document 02/01/21 13:01 AMB (Rec: 02/01/21 13:38 AMB [id number]) Physical Therapy Assessment Goals Two Impairment Gait/stairs Short Term Goal (STG) Cecille will ambulate over smooth terrain for 6 minutes without LOB. STG Duration 30 min on treadmill Help Desk Coordinator Goal (LTG) Cecille will ascend and descend a flight of stair with 1 railing and an alternating gait pattern without LOB. LTG Duration NOT MET One Impairment Strength Short Term Goal (STG) Cecille will be independent with a HEP for LE strengthening. STG Duration MET Help Desk Coordinator Goal (LTG) Cecille will show improved LE strength by moving from sit to stand without UE support. LTG Duration MET Assessment Summary Assessment Patellar tendon sore with sit to stand, medial knee pain when descending stairs. Pt to continue her exercises for the next month and then follow up with her MD. At this point she continues to have knee pain but will continue with her exercises independently. Physical Therapy Plan Discharge Physical Therapy Discharge Reasons Patient Request
== END 2021-04-11 09:37 ==
LOC: PHYS 13:00
PROVIDERS: PCP Family Medicine; Referring Provider Family Medicine; Visit Provider Family Medicine
DX: S82.002D Unspecified fracture of left patella, subsequent encounter for closed fracture with routine healing (principal); R26.89 Other abnormalities of gait and mobility; Z91.81 History of falling
CPT/HCPCS: 97110; 97140; 97162

== ENCOUNTER → 2021-04-15 12:09 | Outpatient (CLI) | payer MEDICARE, OTHER, SELFPAY ==
[2019-10-01 17:54] VITALS: BMI 19.5
[2021-04-15 13:49] LABS: Alanine Aminotransferase 20 IU/L (<35); Albumin 3.9 g/dL (3.5-5.0); Albumin Globulin Ratio 1.4 (1.0-2.8); Alkaline Phosphatase 56 U/L (38-126); Aspartate Aminotransferase 28 IU/L (14-36); BUN Creatinine Ratio 25.6 (6-22); Bilirubin Total 0.7 mg/dL (0.2-1.3); Blood Urea Nitrogen 20 mg/dL (7-17); Carbon Dioxide 36 mmol/L (22-32); Chloride 99 mmol/L (98-107); Estimated Glomerular Filt Rate > 60.0 mL/min (>60); Globulin 2.8 g/dL (1.7-4.1); Glucose 79 mg/dL (80-110); HEMOLYSIS < 15 (0-50); Potassium 4.6 mmol/L (3.4-5.1); Sodium 138 mmol/L (137-145); Total Protein 6.7 g/dL (6.3-8.2)
== END ==
PROVIDERS: PCP Family Medicine; Referring Provider Internal Medicine Cardiovascular Disease; Visit Provider Internal Medicine Cardiovascular Disease
DX: I48.0 Paroxysmal atrial fibrillation (principal); I48.4 Atypical atrial flutter
CPT/HCPCS: 36415; 80053

== ENCOUNTER 2021-05-11 21:09 | Emergency (ER) | payer MEDICARE, OTHER, SELFPAY ==
[2019-10-01 17:54] VITALS: BMI 19.5
--- NOTE | 2021-05-11 21:13 | DI.CT.S_ITS ---
PROCEDURE: CT HEAD/BRAIN WO CON INDICATIONS: Fall on thinners and hit head TECHNIQUE: Noncontrast 4.5 mm thick angled axial sections acquired from the foramen magnum to the vertex, with coronal and sagittal reformats. For radiation dose reduction, the following was used: automated exposure control, adjustment of mA and/or kV according to patient size. COMPARISON: [facility], CT, CT HEAD/BRAIN WO CON, 02/29/2020, 17:36. FINDINGS: Image quality: Excellent. CSF spaces: Basal cisterns are patent. No extra-axial fluid collections. The ventricles are symmetric in size and shape. Brain: No intracranial bleeds or masses. There is cerebral volume loss for age, with resultant ventricular and sulcal prominence. There are periventricular and deep white matter chronic small vessel ischemic changes. There is intracranial internal carotid artery atherosclerosis. Skull and face: Calvarium and visualized facial bones appear intact, without suspicious lesions. Left superior parietal subgaleal scalp hematoma without underlying fracture or intracranial abnormality. Sinuses: Visualized sinuses and mastoids are clear. IMPRESSION: No acute intracranial abnormality. Dictated by: Caesar Zamora M.D. on 05/11/2021 at 21:47 Approved by: Caesar Zamora M.D. on 05/11/2021 at 21:48
--- NOTE | 2021-05-11 21:13 | DI.CT.S_ITS ---
PROCEDURE: CT CERVICAL SPINE WO CON INDICATIONS: Fall on thinners and hit head TECHNIQUE: Noncontrast 3 mm thick sections acquired from the skull base to the T4 level. Sagittal and coronal reformats were then constructed. For radiation dose reduction, the following was used: automated exposure control, adjustment of mA and/or kV according to patient size. COMPARISON: [facility], CT, CT CERVICAL SPINE WO [facility], 02/29/2020, 17:36. FINDINGS: Image quality: Excellent. Bones: No fractures or dislocations. Visualized superior ribs are intact. Soft tissues: Prevertebral soft tissues are normal in thickness. No paravertebral hematomas. No apical pneumothoraces. Right pneumonectomy with rightward cardiomediastinal shift is present. IMPRESSION: No fracture. Dictated by: Caesar Zamora M.D. on 05/11/2021 at 21:48 Approved by: Caesar Zamora M.D. on 05/11/2021 at 21:49
--- NOTE | 2021-05-11 21:15 | ED.GENADULT ---
HPI - General Adult General Chief complaint: Head Injury Stated complaint: fell in kitchen,back of the head wound,on thinners Time Seen by Provider: 05/11/21 21:11 Source: patient Mode of arrival: Ambulatory Limitations: no limitations History of Present Illness HPI narrative: Patient is an 80-year-old female. Is on anticoagulation. Fell in her kitchen landing on the back of her head. She did sustain some bleeding from the area. She reports no other injuries from the event. There was no loss of conscious. No vomiting. She did drive herself to the emergency department. This was clearly a mechanical fall she states that she tripped. Related Data Home Medications Medication Instructions Recorded Confirmed cholecalciferol (vitamin D3) 25 2,000 units PO DAILY #0 06/19/16 11/28/20 mcg (1,000 unit) tablet (Vitamin D3) calcium carbonate 600 mg-vitamin 2 tab PO DAILY 06/24/18 11/28/20 D3 5 mcg (200 unit) tablet (Calcium 600 + D(3)) multivitamin with minerals 1 tab PO DAILY 06/24/18 11/28/20 multivitamin with minerals 1 tab PO DAILY 07/27/19 11/28/20 (Hair,Skin and Nails) carvedilol 6.25 mg tablet 3.125 mg PO BID 10/23/19 11/28/20 flecainide 100 mg tablet 100 mg PO Q12H 01/25/20 11/28/20 Previous Rx's Medication Instructions Recorded ferrous sulfate 325 mg (65 mg 325 mg PO DAILY #90 tab 09/01/20 iron) tablet warfarin 2 mg tablet See Rx Instructions .ROUTE 12/12/20 .COMPLEX #90 tab alendronate 70 mg tablet See Rx Instructions .ROUTE 01/25/21 .COMPLEX #12 tab tiotropium bromide 18 mcg capsule See Rx Instructions .ROUTE 03/13/21 with inhalation device (Spiriva .COMPLEX #30 cap with HandiHaler) Allergies Allergy/AdvReac Type Severity Reaction Status Date / Time No Known Drug Allergies Allergy Verified 05/11/21 21:16 Review of Systems Constitutional Constitutional: Denies fever(s), Denies frequent falls and Denies headache(s) Eyes Eyes: Denies change in vision ENT Ears, Nose, Mouth, and Throat: Denies headache(s) and Denies neck pain Cardiovascular Cardiovascular: Denies chest pain, Denies lightheadedness and Denies dyspnea Respiratory Respiratory: Denies cough and Denies dyspnea Gastrointestinal Gastrointestinal: Denies abdominal pain, Denies nausea and Denies vomiting Musculoskeletal Musculoskeletal: Denies back pain, Denies myalgias and Denies neck pain Integumentary/Breasts Skin/Breast: Denies rash and Reports wounds Neurologic Neurologic: Denies frequent falls and Denies headache(s) Psychiatric Psychiatric: Reports system reviewed and no additional complaints, except as documented Hematologic/Lymphatic On Anticoagulants: Yes Allergic/Immunologic Allergic/Immunologic: Reports system reviewed and no additional complaints, except as documented Patient History Medical History Atrial fibrillation (2013) Atrial fibrillation with RVR COPD (chronic obstructive pulmonary disease) Hypertension Lung cancer (2006) Osteoarthritis Osteoporosis (2015) Ovarian cancer (1994) Raynauds syndrome (12/14/10) Uterine cancer (1994) Surgical History Anesthesia History of bilateral salpingo-oophorectomy (BSO) History of breast augmentation (1992) History of hip replacement (01/2013) History of oophorectomy (1994) History of pneumonectomy (05/2007) Status post hysterectomy (1994) Family History Father Hypertension Prostate cancer Grandfather Stroke Grandmother Diabetes mellitus Mother Diabetes mellitus, type II Hypertension Stroke Grandfather No problems noted. Grandmother No problems noted. Social History marital status: unmarried,single household members: none lives independently: Yes pets and animals: Yes education level: college occupational status: other Smoking Status: Former smoker Tobacco: How many years used: 19 alcohol intake: current substance use type: does not use Smoking Status: Former smoker alcohol intake frequency: holidays/special occasions only Substance Use Type: does not use Exam Initial Vital Signs Initial Vital Signs: Vital Signs Temperature 97.3 F L 05/11/21 21:16 Pulse Rate 74 05/11/21 21:16 Respiratory Rate 15 05/11/21 21:16 Blood Pressure 174/76 H 05/11/21 21:16 Pulse Oximetry 92 05/11/21 21:16 [facility] Head: contusion and laceration (Left parietal/occipital region) Nose: external nose normal Face and sinus: normal facial exam Eyes General: appearance normal, both eyes and all related structures Resp Effort & Inspection: normal respiratory effort Cardio Rate: regular rate Back/Spine/Pelvis Cervical Spine: No pain with cervical ROM and No cervical spinal tenderness Skin Other: 2 cm laceration to the occipital parietal region left side of her posterior scalp. Neuro General: patient alert, patient awake, patient oriented x3 and moves all extremities Cranial Nerves: CN's II-XI intact bilaterally Speech: speech normal Gait: normal gait Motor: muscle tone normal throughout Extrem General: normal to inspection and capillary refill normal Psych Appearance: grossly normal and well kempt Procedures Laceration Repair Laceration 1: Site: scalp Side (If applicable): left Size (cm): 2 Description: irregular Depth: simple, single layer Local Anesthetic: lidocaine 1% and with bicarb Amount of anesthesia used (mL): 5 Pre-repair: wound explored Skin layer closed with: lashanda Scores GCS Blanie coma scale eye opening: Spontaneous [place] coma scale verbal response: Orientated [place] coma scale motor response: Obey commands [place] coma scale total score: 15 Course Orders Ordered: ED Orders 05/11/21 21:13 CT cervical spine wo con Stat CT head/brain wo con Stat Discontinued Medications Bacitracin (Bacitracin Oint 0.9 Gm Pckt) 1 applic TOP NOW ONE Stop: 05/11/21 21:16 Last Admin: 05/11/21 21:24 Dose: 1 applic Documented by: JANEE Lidocaine/Sodium Bicarbonate (Lido 1%/Sod Bicarb 8.4% (10ml) 10 Ml Syringe) 10 ml INJ NOW ONE Stop: 05/11/21 21:16 Last Admin: 05/11/21 21:25 Dose: 10 ml Documented by: JANEE Vital Signs Vital signs: Vital Signs - 8 hr 05/11/21 21:16 05/11/21 22:25 05/11/21 22:26 Temperature 97.3 F L Pulse Rate 74 68 Respiratory Rate 15 Blood Pressure 174/76 H 135/63 Pulse Oximetry 92 96 96 05/11/21 22:30 Temperature Pulse Rate 55 L Respiratory Rate Blood Pressure Pulse Oximetry 95 Medical Decision Making Imaging Data CT - cervical spine: Radiologist's Impression: [address] [address] [address] Scan Report Signed Patient: Cecille Toledo MR#: [id number] : 1940 Acct:[id number] Age/Sex: 80 / F Date of Service: 05/11/21 Loc: ED Accession Number: [id number] ?? Procedure: CT cervical spine wo con Ordering Provider: Dhiraj Tolentino D.O. PROCEDURE:? CT CERVICAL SPINE WO CON ? INDICATIONS:? Fall on thinners and hit head ? TECHNIQUE:? Noncontrast 3 mm thick sections acquired from the skull base to the T4 level.? Sagittal and coronal reformats were then constructed.? For radiation dose reduction, the following was used:? automated exposure control, adjustment of mA and/or kV according to patient size.? ? COMPARISON:? [facility], CT, CT CERVICAL SPINE WO CON, 02/29/2020, 17:36. ? FINDINGS:? Image quality:? Excellent.? ? Bones:? No fractures or dislocations.? Visualized superior ribs are intact.? ? Soft tissues:? Prevertebral soft tissues are normal in thickness.? No paravertebral hematomas.? No apical pneumothoraces.? Right pneumonectomy with rightward cardiomediastinal shift is present. ? ? IMPRESSION:? No fracture. ? Dictated by: Caesar Zamora M.D. on 05/11/2021 at 21:48 ? ? Approved by: Caesar Zamora M.D. on 05/11/2021 at 21:49?? CT scan - head: Radiologist's Impression: [address] [address] [address] Scan Report Signed Patient: Cecille Toledo MR#: [id number] : 1940 Acct:[id number] Age/Sex: 80 / F Date of Service: 05/11/21 Loc: ED Accession Number: [id number] ?? Procedure: CT head/brain wo con Ordering Provider: Dhiraj Tolentino D.O. PROCEDURE:? CT HEAD/BRAIN WO CON ? INDICATIONS:? Fall on thinners and hit head ? TECHNIQUE:? Noncontrast 4.5 mm thick angled axial sections acquired from the foramen magnum to the vertex, with coronal and sagittal reformats.? For radiation dose reduction, the following was used:? automated exposure control, adjustment of mA and/or kV according to patient size.? ? COMPARISON:? [facility], CT, CT HEAD/BRAIN WO CON, 02/29/2020, 17:36. ? FINDINGS:? Image quality:? Excellent.? ? CSF spaces:? Basal cisterns are patent.? No extra-axial fluid collections.? The ventricles are symmetric in size and shape.? ? Brain:? No intracranial bleeds or masses.? There is cerebral volume loss for age, with resultant ventricular and sulcal prominence.? There are periventricular and deep white matter chronic small vessel ischemic changes.? There is intracranial internal carotid artery atherosclerosis.? ? Skull and face:? Calvarium and visualized facial bones appear intact, without suspicious lesions.? Left superior parietal subgaleal scalp hematoma without underlying fracture or intracranial abnormality. ? Sinuses:? Visualized sinuses and mastoids are clear.? ? IMPRESSION:? No acute intracranial abnormality. ? ? Dictated by: Caesar Zamora M.D. on 05/11/2021 at 21:47 ? ? Approved by: Caesar Zamora M.D. on 05/11/2021 at 21:48? MDM Narrative Medical decision making narrative: Patient was alert oriented x3. GCS of 15. CT scan showed no signs of acute pathology. Her scalp wound was closed with lashanda with good hemostasis and approximation of the wound edges. Patient was given care instructions and return precautions. This was a mechanical fall she states that she tripped at home. She reports no other injuries from the event. Discharge Plan Departure Patient Disposition: Home Clinical Impression: Laceration of scalp Instructions: DI for Laceration Repair of the Scalp Activity Restrictions/Additional Instructions: The lashanda that were placed need to be removed in approximately 10 days. You can contact your primary doctor or go to the walk-in clinic for this. You can wash your hair tomorrow. Expect some oozing of blood like we discussed for the next 24 hours. Return to the emergency department for any new or worsening symptoms. Prescriptions: No Action cholecalciferol (vitamin D3) [Vitamin D3] 1,000 UNIT tablet 2,000 units PO DAILY Qty: 0 0RF carvedilol 6.25 mg tablet 3.125 mg PO BID 0RF Rx Instructions: must administer with a meal/food warfarin 2 mg tablet See Rx Instructions .ROUTE .COMPLEX Qty: 90 1RF Dose Instruction: TAKE 1/2 TABLET ON SATURDAY, TAKE 1 TABLET DAILY ON ALL OTHER DAYS OF THE WEEK OR DIRECTED Rx Instructions: TAKE 1/2 TABLET ON SATURDAY, TAKE 1 TABLET DAILY ON ALL OTHER DAYS OF THE WEEK OR DIRECTED alendronate 70 mg tablet See Rx Instructions .ROUTE .COMPLEX Qty: 12 2RF Dose Instruction: TAKE 1 TABLET BY MOUTH ONCE PER WEEK Rx Instructions: TAKE 1 TABLET BY MOUTH ONCE PER WEEK Spiriva with HandiHaler 18 mcg capsule, w/inhalation device See Rx Instructions .ROUTE .COMPLEX Qty: 30 1RF Dose Instruction: INHALE THE CONTENTS OF 1 CAPSULE VIA INHALATION DEVICE EVERY DAY Rx Instructions: INHALE THE CONTENTS OF 1 CAPSULE VIA INHALATION DEVICE EVERY DAY calcium carbonate-vitamin D3 [Calcium 600 + D(3)] 600 mg(1,500mg) -200 unit Tablet 2 tab PO DAILY 0RF multivitamin with minerals Tablet 1 tab PO DAILY 0RF multivitamin with minerals [Hair,Skin and Nails] Tablet 1 tab PO DAILY 0RF flecainide 100 mg Tablet 100 mg PO Q12H 0RF ferrous sulfate 325 mg (65 mg iron) Tablet 325 mg PO DAILY Qty: 90 3RF Referrals: Rosio Puckett MD [Primary Care Provider] -
[2021-05-11 21:16] VITALS: BP 174/76; PULSE 74; RESP 15; TEMP 36.3; O2SAT 92; BMI 21.4
[2021-05-11] MEDS: BACITRACIN OINT 0.9 GM PCKT 1 APPLIC TOP (21:24)
[2021-05-11] MEDS: LIDO 1%/SOD BICARB 8.4% (10ML) 10 ML SYRINGE INJ (21:25)
[2021-05-11 22:25] VITALS: O2SAT 96
[2021-05-11 22:26] VITALS: BP 135/63; PULSE 68; O2SAT 96
[2021-05-11 22:30] VITALS: PULSE 55; O2SAT 95
== END 2021-05-11 22:37 | disposition home or self-care (01) ==
PROVIDERS: Emergency Provider Emergency Medicine; PCP Family Medicine
DX: S01.01XA Laceration without foreign body of scalp, initial encounter (principal); Z79.01 Long term (current) use of anticoagulants; Z87.891 Personal history of nicotine dependence; W19.XXXA Unspecified fall, initial encounter; Y92.89 Other specified places as the place of occurrence of the external cause
CPT/HCPCS: 12001; 70450; 72125; 99283; 99284

== ENCOUNTER → 2021-06-02 14:04 | Outpatient (CLI) | payer MEDICARE, OTHER, SELFPAY ==
[2019-10-01 17:54] VITALS: BMI 19.5
--- NOTE | 2021-06-02 14:06 | DI.RAD.S_ITS ---
PROCEDURE: XR LUMBAR SPINE 2-3V INDICATIONS: post fall TECHNIQUE: 3 views of the lumbar spine were acquired. COMPARISON: None. FINDINGS: Bones: 5 [id number] vertebrae are present. Diffuse osteopenia. Multifocal degenerative change with disc height loss and osteophytosis. No gross vertebral body compression fractures. Levocurvature of the lumbar spine, which may reflect degenerative scoliosis. A left hip arthroplasty is partially imaged. Soft tissues: Overlying bowel gas pattern is normal. No suspicious soft tissue calcifications. IMPRESSION: No definitive acute osseous abnormality. If clinical concern remains, consider magnetic resonance imaging. Dictated by: Lopez Joseph M.D. on 06/02/2021 at 14:52 Approved by: Lopez Joseph M.D. on 06/02/2021 at 14:53
--- NOTE | 2021-06-02 14:06 | DI.RAD.S_ITS ---
PROCEDURE: XR FACIAL BONES MIN 3V INDICATIONS: post fall TECHNIQUE: 3 views of the facial bones were acquired. COMPARISON: None. FINDINGS: Sinuses: Visualized sinuses demonstrate no air-fluid levels or mucosal thickening. Bones: No fractures. No suspicious bony lesions. Orbital rims and zygomatic arches appear intact. Soft tissues: No suspicious soft tissue densities. IMPRESSION: Negative facial bone series. If there is persistent high clinical concern for occult fracture, recommend further evaluation with CT. Dictated by: Matthew Earl M.D. on 06/02/2021 at 17:10 Approved by: Matthew Earl M.D. on 06/02/2021 at 17:13
--- NOTE | 2021-06-02 14:06 | DI.RAD.S_ITS ---
PROCEDURE: XR MANDIBLE MIN 4V INDICATIONS: post fall TECHNIQUE: 4 views of the mandible were acquired. COMPARISON: None. FINDINGS: Bones: No fractures or dislocations. No suspicious bony lesions. Soft tissues: Visualized sinuses appear clear. No suspicious soft tissue densities. IMPRESSION: No definite acute fractures identified. If there is persistent high clinical concern for facial fractures, consider further evaluation with CT. Dictated by: Matthew Earl M.D. on 06/02/2021 at 17:09 Approved by: Matthew Earl M.D. on 06/02/2021 at 17:10
== END ==
PROVIDERS: PCP Family Medicine; Referring Provider Family Medicine; Visit Provider Family Medicine
DX: R29.6 Repeated falls (principal); Z96.642 Presence of left artificial hip joint; Z91.81 History of falling
CPT/HCPCS: 70110; 70150; 72100

== ENCOUNTER → 2021-11-06 15:19 | Outpatient (CLI) | payer MEDICARE, OTHER, SELFPAY ==
[2019-10-01 17:54] VITALS: BMI 19.5
--- NOTE | 2021-11-06 15:21 | DI.RAD.S_ITS ---
PROCEDURE: XR LUMBAR SPINE 2-3V INDICATIONS: Xray of spine for weakness TECHNIQUE: 3 views of the lumbar spine were acquired. COMPARISON: [facility], CR, XR LUMBAR SPINE 2-3V, 06/02/2021, 14:11. FINDINGS: Bones: 5 [id number] vertebrae are present. There is unchanged levoscoliosis. Multilevel severe degenerative disc disease is seen. No vertebral body height loss. Facet arthrosis with grade 2 anterolisthesis of L5-S1, unchanged. Status post left hip replacement. The bones are demineralized. Soft tissues: Overlying bowel gas pattern is normal. No suspicious soft tissue calcifications. Surgical clips in the right pelvis. IMPRESSION: 1. Severe levoscoliosis. 2. Severe multilevel degenerative changes and disc disease. 3. Facet arthrosis and grade 2 anterolisthesis of L5-S1. Dictated by: Beni Cobos M.D. on 11/06/2021 at 17:01 Approved by: Beni Cobos M.D. on 11/06/2021 at 17:03
== END ==
PROVIDERS: PCP Family Medicine; Referring Provider Family Medicine; Visit Provider Family Medicine
DX: M51.36 Other intervertebral disc degeneration, lumbar region (principal); M47.816 Spondylosis without myelopathy or radiculopathy, lumbar region; M43.17 Spondylolisthesis, lumbosacral region; M47.817 Spondylosis without myelopathy or radiculopathy, lumbosacral region; M41.9 Scoliosis, unspecified; R29.898 Other symptoms and signs involving the musculoskeletal system; Z96.642 Presence of left artificial hip joint
CPT/HCPCS: 72100

== ENCOUNTER → 2021-11-10 13:49 | Outpatient (CLI) | payer MEDICARE, OTHER, SELFPAY ==
[2019-10-01 17:54] VITALS: BMI 19.5
--- NOTE | 2021-11-10 13:50 | DI.MRI.S_ITS ---
PROCEDURE: MR LUMBAR SPINE WO CON INDICATIONS: Severe arthritic changes TECHNIQUE: Noncontrast sagittal T1 spin echo and T2 fast echo, sagittal STIR, and T2 fast spin echo through the lumbar spine. In cases with scoliosis, additional coronal T2 fast spin echo may be performed. COMPARISON: None. FINDINGS: Image quality: Excellent. Alignment and Curvature: Severe levoscoliosis with a Resendiz angle of 28 degrees. Grade 2 anterolisthesis of L5-S1 measuring 10 mm. Bone Marrow: Degenerative changes are seen throughout the thoracic and lumbar spine. Disc osteophytes are seen multiple levels. No abnormal STIR signal to suggest acute fracture or metastatic disease.. Spinal Cord: Conus medullaris terminates at the L1 level. Visualized cord demonstrates normal signal and size. Paraspinous Soft Tissues: No paravertebral masses. T12-L1: Degenerative disc disease, most prominent on the right causing moderate right foraminal stenosis. The left foramen and central canal are patent. L1-L2: Degenerative disc disease, most prominent on the right, causing moderate right foraminal stenosis. The left foramen and central canal are patent. L2-L3: Degenerative disc disease with a diffuse disc bulge, asymmetric to the right causing severe right foraminal stenosis. The left foramen has mild stenosis. L3-L4: Degenerative disc disease and partial fusion at this level with disc osteophytes and diffuse disc bulge causing moderate right and severe left foraminal stenosis. L4-L5: Diffuse disc bulge and facet hypertrophy causing mild bilateral foraminal stenosis. L5-S1: Facet hypertrophy and bilateral pars defect causing grade 2 anterolisthesis. There is severe left and mild right foraminal stenosis. The central canal is patent. IMPRESSION: 1. Severe multilevel lumbar spondylosis as detailed above. 2. Levoscoliosis with a Resendiz angle of 28 degrees. 3. Facet arthrosis in the lower lumbar spine, especially at L5-S1 where there is also a bilateral pars defect with grade 2 anterolisthesis. 4. No acute traumatic abnormality. Dictated by: Beni Cobos M.D. on 11/10/2021 at 15:02 Approved by: Beni Cobos M.D. on 11/10/2021 at 15:08
== END ==
PROVIDERS: PCP Family Medicine; Referring Provider Family Medicine; Visit Provider Family Medicine
DX: M81.0 Age-related osteoporosis without current pathological fracture (principal); M19.90 Unspecified osteoarthritis, unspecified site; M47.816 Spondylosis without myelopathy or radiculopathy, lumbar region; M41.86 Other forms of scoliosis, lumbar region
CPT/HCPCS: 72148

== ENCOUNTER → 2022-01-16 12:02 | Outpatient (CLI) | payer MEDICARE, OTHER, SELFPAY ==
[2019-10-01 17:54] VITALS: BMI 19.5
[2022-01-16 13:27] LABS: Alanine Aminotransferase 21 IU/L (<35); Albumin Globulin Ratio 1.3 (1.0-2.8); Alkaline Phosphatase 67 U/L (38-126); Aspartate Aminotransferase 34 IU/L (14-36); BUN Creatinine Ratio 37.7 (6-22); Bilirubin Total 0.5 mg/dL (0.2-1.3); Blood Urea Nitrogen 26 mg/dL (7-17); Calcium 9.4 mg/dL (8.4-10.2); Carbon Dioxide 32 mmol/L (22-32); Chloride 97 mmol/L (98-107); Estimated Glomerular Filt Rate > 60 mL/min (>60); Globulin 3.1 g/dL (1.7-4.1); Glucose 85 mg/dL (80-110); HEMOLYSIS < 15 (0-50); Potassium 4.1 mmol/L (3.4-5.1); Sodium 137 mmol/L (137-145); Total Protein 7.1 g/dL (6.3-8.2)
== END ==
PROVIDERS: PCP Family Medicine; Referring Provider Physician Assistant; Visit Provider Physician Assistant
DX: I48.0 Paroxysmal atrial fibrillation (principal)
CPT/HCPCS: 36415; 80053

== ENCOUNTER → 2022-02-24 11:02 | Outpatient (CLI) | payer MEDICARE, OTHER, SELFPAY ==
[2019-10-01 17:54] VITALS: BMI 19.5
[2022-02-24 12:06] LABS: INR 2.4 (0.9-1.3); Prothrombin Time 27.3 SECONDS (10.1-12.7)
== END ==
PROVIDERS: PCP Family Medicine; Referring Provider Family Medicine; Visit Provider Family Medicine
DX: Z79.01 Long term (current) use of anticoagulants (principal); I48.20 Chronic atrial fibrillation, unspecified
CPT/HCPCS: 36415; 85610

== ENCOUNTER → 2022-03-26 12:14 | Outpatient (CLI) | payer MEDICARE, OTHER, SELFPAY ==
[2019-10-01 17:54] VITALS: BMI 19.5
[2022-03-26 12:43] LABS: INR 2.7 (0.9-1.3); Prothrombin Time 31.3 SECONDS (10.1-12.7)
== END ==
PROVIDERS: PCP Family Medicine; Referring Provider Family Medicine; Visit Provider Family Medicine
DX: Z51.81 Encounter for therapeutic drug level monitoring (principal); I48.20 Chronic atrial fibrillation, unspecified; Z79.01 Long term (current) use of anticoagulants
CPT/HCPCS: 36415; 85610

== ENCOUNTER → 2022-05-28 14:55 | Outpatient (CLI) | payer MEDICARE, OTHER, SELFPAY ==
[2019-10-01 17:54] VITALS: BMI 19.5
[2022-05-28 16:25] LABS: Add Manual Diff / Slide Review NO; Basophils Absolute Auto 0 /uL (0-100); Basophils Percent Auto 0.6 % (0-2); Eosinophils Absolute Auto 0 /uL (0-450); Eosinophils Percent Auto 0.4 % (2-4); Hematocrit 40.5 % (36-46); Hemoglobin 13.6 g/dL (12.0-16.0); Lymphocytes Absolute Auto 1200 /uL (1100-4500); Lymphocytes Percent Auto 19.5 % (25-40); Mean Corpuscular HGB Conc 33.5 % (30-36); Mean Corpuscular Hemoglobin 30.5 PG (26-34); Mean Corpuscular Volume 90.9 fL (80-100); Monocytes Absolute Auto 600 /uL (0-900); Monocytes Percent Auto 9.8 % (3-14); Neutrophils Absolute Auto 4200 /uL (1500-7000); Neutrophils Percent Auto 69.7 % (50-75); Platelet Count 260 X10^3/uL (150-400); Red Blood Cell Count 4.45 X10^6/uL (4.0-5.2); Red Cell Distribution Width 14.1 % (11.6-14.8)
[2022-05-28 16:36] LABS: BUN Creatinine Ratio 30.1 (6-22); Blood Urea Nitrogen 22 mg/dL (7-17); Calcium 9.7 mg/dL (8.4-10.2); Carbon Dioxide 34 mmol/L (22-32); Chloride 97 mmol/L (98-107); Estimated Glomerular Filt Rate > 60 mL/min (>60); Glucose 93 mg/dL (80-110); HEMOLYSIS < 15 (0-50); Potassium 3.9 mmol/L (3.4-5.1); Sodium 138 mmol/L (137-145)
[2022-05-28 16:47] LABS: Hemoglobin A1C% w Est Avg Glu 5.5 % (4.0-6.0)
[2022-05-28 17:20] LABS: Appearance Urine UA CLEAR; Bilirubin Urine UA NEGATIVE (NEGATIVE); Color Urine UA YELLOW; Glucose Urine UA NEGATIVE (Negative); Ketones Urine UA NEGATIVE (NEGATIVE); Leukocyte Esterase Urine UA 2+ (NEGATIVE); Nitrite Urine UA NEGATIVE (Negative); Occult Blood Urine UA TRACE-INTACT (Negative); Protein Urine UA NEGATIVE (Negative)
[2022-05-28 18:12] LABS: Bacteria Urine Many (>30); Culture Indicated Urine Specimen Cultured; RBC Urine None Seen (0-5/HPF); Squamous Epithelial Cell Urine None Seen (0-5/HPF); WBC Urine 0-1/HPF (0-5/HPF)
== END ==
PROVIDERS: PCP Family Medicine; Referring Provider Orthopaedic Surgery; Visit Provider Orthopaedic Surgery
DX: Z01.818 Encounter for other preprocedural examination (principal); R73.9 Hyperglycemia, unspecified; Z01.812 Encounter for preprocedural laboratory examination; N39.0 Urinary tract infection, site not specified
CPT/HCPCS: 36415; 80048; 81001; 83036; 85025; 87077; 87086; 87186; 93005; 93010

== ENCOUNTER 2022-07-17 18:39 | Inpatient (IN) | payer MEDICARE, OTHER, SELFPAY ==
[2019-10-01 17:54] VITALS: BMI 19.5
[2022-07-09 13:42] VITALS: BMI 19.0
[2022-07-17] VITALS (16 sets, daily range): BP systolic 135–193; BP diastolic 60–90; PULSE 54–90; RESP 12–18; TEMP 35.6–37; O2SAT 92–100; BMI 19.0
--- NOTE | 2022-07-17 06:00 | DI.RAD.S_ITS ---
PROCEDURE: XR HIP W PEL IF DONE RT 2V INDICATIONS: INNER OP TECHNIQUE: 2 view(s) of the hip acquired. COMPARISON: None. FINDINGS: Intraoperative imaging obtained during right hip arthroplasty. IMPRESSION: Intraoperative imaging obtained during right hip arthroplasty. Dictated by: Caesar Zamora M.D. on 07/18/2022 at 10:48 Transcribed by: CARMEN on 07/18/2022 at 10:48 Approved by: Caesar Zamora M.D. on 07/18/2022 at 16:08
[2022-07-17 12:32] LABS: COVID19 -Nasal RAPID Negative (Negative)
[2022-07-17] MEDS: CELECOXIB 200 MG CAPSULE PO (13:19)
[2022-07-17] MEDS: ACETAMINOPHEN 325 MG TABLET 975 MG PO (13:19)
[2022-07-17] MEDS: VANCOMYCIN 1,000 MG/200 ML PIGGYBACK 200 MG IV (13:46)
--- NOTE | 2022-07-17 14:34 | PM.OP.1 ---
Operative Date/Time/Diagnoses Date of procedure: 07/17/22 Time of procedure: 14:30 Pre-op diagnosis: right hip OA Post-op diagnosis: same Procedure & Clinicians Procedure: Right total hip arthroplasty anterior approach Same procedure as scheduled: Yes Indications: The patient has had progressively worsening right hip pain with radiographic changes consistent with arthritis. Non-operative management has failed and the patient has requested total hip replacement. The risks, benefits and alternatives to surgery were discussed with the patient prior to proceeding. Risks discussed included, but were not limited to, failure to relieve pain, leg length discrepancy, dislocation, stiffness, infection, nerve damage, deep venous thrombosis, pulmonary embolism, stroke, coma, heart attack, permanent paralysis and , as well as the potential need for eventual revision of the prosthetic. Surgeon: Kymberly Hough Forming And Assembling Supervisor: Lynnette Valera Anesthesia Type: General Operative Notes Findings: Severe right hip osteoarthritis Closure Type: primary Specimen(s): none sent Prosthetic devices, grafts, tissues, transplants, or devices: Right total hip arthroplasty size 50 R3 cup size 6 standard offset anthology stem neutral poly liner, 32 x -3 cobalt,one 6.5 mm screw Estimated Blood Loss (mL): 250 Blood products transfused: none Procedure in detail: The patient was brought to the operating room. Patient was carefully positioned in the supine position. Time-out was performed and antibiotics were given. Anesthesia was induced. She was positioned in the on the table in order to allow hyperextension of the hip. The right lower extremity was prepped and draped in a standard sterile fashion. An anterior right hip incision was made 1 fingerbreadth lateral to the anterior superior iliac spine and extended distally towards the greater trochanter. Dissection was carried out through skin and subcutaneous tissues. Superficial hemostasis was achieved. The fascia over the tensor fascia shannon was defined and incised with a knife. Two Allis clamps were used to grasp the fascia. Tensor fascia shannon was retracted laterally. A gelpi retractor was placed. Dissection was carried out down along the neck. The circumflex vessels were carefully identified and cauterized with the Aqua Mantis. There was good visualization of the femoral neck. A Cobra was placed superior to the neck and the gluteus fibers were carefully stripped from that superior aspect of the capsule. A 2nd retractor was placed along the inferior aspect of the neck. The rectus insertion along the capsule was partially released. A 3rd retractor that was then gently placed over the rim of the acetabulum under the rectus. Capsule was carefully incised and released from the intertrochanteric line circumferentially superior to the mid sagittal line and inferiorly to the mid sagittal line until the lesser trochanter was palpable. A tag stitch was placed both in the superior and inferior limb of the capsular insertion. Along the acetabulum capsule was also released up to the mid sagittal 12:00 position. A portion of the labrum was resected. A saw was used to perform an osteotomy at the level of the intertrochanteric line and the junction of the superior femoral neck leaving approximately 1 finger breath of residual inferior neck above the lesser trochanter. Patient was noted to flip into a tachy arrhythmia. Additional anesthesia support was requested. Her rate responded to medications and she appeared to respond to treatment. A 2nd cut was made along the femoral neck at the base of the head and a napkin ring of neck was removed. Corkscrew was placed in the femoral head and the head was removed without difficulty. Retractors were then repositioned around the acetabulum. Residual labrum was resected and additional osteophytes were removed. A reamer that was 4 mm below the templated size was placed by hand in the acetabulum and it was reamed to centralize the acetabulum. It was then reamed up to 2 under the templated size and fluoroscopy was brought in to confirm the position of the reaming and depth of reaming. I reamed 1 under the anticipated size. A trial cup was placed and noted that it was appropriately sized and fluoroscopy confirmed position and depth. The component was open and inserted without difficulty fluoroscopic imaging was used to confirm that the cup had been adequately seated and was well positioned. It was further stabilized with a single screw. Neutral poly liner was placed. The cup was tested and noted to be stable. Attention was then directed to the femur. The femur was gently hyperextended additional capsular release was performed as needed in order to allow adequate visualization of the proximal femur with elevation of the femur. Patient was placed in a hyperextended slightly adducted position with maximum external rotation. Box osteotome was used to check for any residual neck as well as sclerotic bone along the trochanter. Phoenix pepper was placed in the femur. Additional broaching was performed. Canal finder was used to determine the alignment of the canal and position. Size 1 broach was placed. The canal was then appropriately broached up to the templated size as long as there was adequate stability of the broach and serial advancement of the broach without excessive impingement. Specific attention was directed at avoiding varus attempting to direct the distal aspect of the broach more anteriorly and avoiding excessive anteversion. Trial reduction showed acceptable range of motion, good stability, no posterior impingement, restorationism of leg length and appropriate lateral shuck. I also hyperflexed the hip and checked that there was no impingement anteriorly and there was good stability with flexion, adduction and internal rotation. Marcaine and Exparel were injected. The stem was placed without difficulty. Repeat trial reduction and x-ray showed acceptable overall position, length, and no evidence of the femoral fracture. Final head was placed. Wound was meticulously irrigated with normal saline. The hip was reduced and additional Exparel and Marcaine were injected. The capsule was closed with interrupted nonabsorbable sutures. The fascia of the tensor was closed with interrupted and running Vicryl. No drain was placed. Any tensor fascia shannon muscle that appeared to be contused or injured which was a minimal amount was carefully resected. Capsule around the tensor was injected with Exparel and Marcaine. The skin was closed with barbed stitches for the subcutaneous tissue and skin. We also used surgical glue. The wound was dressed sterilely. Brief Betadine soak was also used and was meticulously irrigated with normal saline. Patient was transferred to recovery room in satisfactory condition. Complications: none Post-operative Condition: stable Disposition: Acute Care Plan for aftercare: The patient will be maintained on a standard total hip replacement protocol with weight bearing as tolerated and anterior hip precautions. The patient will receive Aspirin and sequential compression devices for DVT prophylaxis. The patient will be discharged home when safe for the home environment.
[2022-07-17] MEDS: CEFAZOLIN 2 GM/100 ML PREMIX 100 ML IV ×2 (15:00→23:16)
--- NOTE | 2022-07-17 15:24 | SUR.OPER ---
Supine on padded [place] table with bilateral legs secured in padded positioning boots and suspended in positioning spars, operative leg in traction per surgeon. Head on one pillow. Arm on non-operative side secured on padded armboard <90 degrees abduction. Arm on operative side padded and resting across chest then secured with tape over sheet. Padded perineal post in place per surgeon.
[2022-07-17] MEDS: BUPIVACAINE 0.25% (PF) 60 ML, EPINEPHrine 0.3 MG INJ (15:38)
[2022-07-17] MEDS: TRANEXAMIC ACID 1,000 MG VIAL 2000 MG INJ ×2 (15:40→17:03)
[2022-07-17] MEDS: BUPIVACAINE LIPOSOME 266 MG/20 ML VIAL INJ (17:02)
--- NOTE | 2022-07-17 17:10 | DI.ECHO.S_ITS ---
[facility]---------[facility] +---------+ : : [address] : [place] : : : : [id number] : : : : Phone: [phone]---------+ Echocardiogram Report + + :Name: ELIUD BENDER Study Date: 07/18/2022 Height: 59 in : :[facility] ReadingLocation: Weight: 94 lb : : Gender: Female BSA: 1.3 m2 : :: 1940 Age: 81 yrs BP: 123/64 mmHg: :Reason For Study: ATRIAL FIBRILLATION : :Ordering Physician: YECENIA, : :KENA Bowen Performed By: Yuridia Painting : :Referring: TETE KEENE : + + Interpretation Summary The study quality was technically difficult. The apical views were not obtained due to lack of a useable window. Patient states having right lung removed. The left ventricular cavity is small. The ejection fraction is estimated to be 65-70%. The interventricular septum is flattened, consistent with a right ventricular pressure/volume condition. The right ventricle is grossly normal size. The right ventricular systolic function is normal. There is mild to moderate tricuspid regurgitation. Compared to the prior echo exam, there has been an increase in TR severity. The right ventricular systolic pressure is estimated to be at least 57 mmHg based on an estimated right atrial pressure of 15 mm Hg. Compared to the prior echo exam, there has been an increase in the severity of pulmonary hypertension. There is mild luminal irregularity and echogenicity in the abdominal aorta, suggestive of aortic atherosclerotic disease. Procedure: A two-dimensional transthoracic echocardiogram with color flow and Doppler was performed. The apical views were not obtained due to lack of a useable window. Patient states having right lung removed. Comparison is made with the echocardiogram of 06/26/2018. The study quality was technically difficult. The patient was in sinus bradycardia with heart rates between 54-61 bpm during the exam. Left Ventricle: The left ventricular cavity is small. There is normal left ventricular wall thickness. The ejection fraction is estimated to be 65-70%. The interventricular septum is flattened, consistent with a right ventricular pressure/volume condition. MV E/A: 0.95. Right Ventricle: The right ventricle is grossly normal size. The right ventricular systolic function is normal. Atria: Both atria are normal in size. Mitral Valve: There is a flat closure plane of the the mitral valve leaflets. There is mild mitral annular calcification. The mitral valve leaflets appear mildly thickened, but open well. There is trace mitral regurgitation. Aortic Valve: The aortic valve is mildly calcified. The aortic valve is trileaflet. The aortic valve opens well. There is no aortic valve stenosis. No aortic regurgitation is present. Tricuspid Valve: The tricuspid valve is not well visualized, but is grossly normal. There is mild to moderate tricuspid regurgitation. The right ventricular systolic pressure is estimated to be at least 57 mmHg based on an estimated right atrial pressure of 15 mm Hg. Compared to the prior echo exam, there has been an increase in TR severity. Compared to the prior echo exam, there has been an increase in the severity of pulmonary hypertension. Pulmonic Valve: The pulmonic valve leaflets are thin and pliable; valve motion is normal. There is mild pulmonic regurgitation. Great Vessels: There is mild luminal irregularity and echogenicity in the abdominal aorta, suggestive of aortic atherosclerotic disease. The IVC is dilated (diameter is greater than 2.1 cm) and it collapses less than 50% with a sniff. This suggests a high right atrial pressure of 15 mm Hg. Pericardium/ Pleura There is no pericardial effusion. There is no pleural effusion. MMode/2D Measurements & Calculations LVIDd: 3.4 cm LVOT diam: 1.9 cm LVIDs: 2.1 cm Ao root diam: 2.5 cm FS: 39.0 % EPSS: 0.54 cm IVSd: 0.58 cm LVPWd: 0.52 cm LV bird. diameter/BSA (cm/m^2): 2.5 LV sys. diameter/BSA (cm/m^2): 1.5 IVC diam: 2.0 cm Doppler Measurements & Calculations Ao V2 max: 147.1 cm/sec MV E max caro: 65.2 cm/sec Ao V2 mean: 99.6 cm/sec MV A max caro: 68.6 cm/sec Ao max P.7 mmHg MV E/A: 0.95 Ao mean P.5 mmHg MV dec time: 0.33 sec Ao V2 VTI: 30.7 cm TR max caro: 324.5 cm/sec TR max P.1 mmHg PA V2 max: 76.3 cm/sec PA V2 mean: 55.0 cm/sec PA mean P.4 mmHg PA pr(Accel): 27.6 mmHg Reading Physician:12:37 PM
[2022-07-17] MEDS: ONDANSETRON 4 MG/2 ML INJ IV (17:30)
[2022-07-17] MEDS: HYDROMORPHONE 2 MG INJ IV (17:30)
--- NOTE | 2022-07-17 17:30 | DI.RAD.S_ITS ---
PROCEDURE: XR HIP W PEL IF DONE RT 2V INDICATIONS: RIGHT TOTAL HIP TECHNIQUE: AP pelvis and lateral view of the right hip acquired. COMPARISON: [facility], CR, XR HIP W PEL IF DONE RT 2V, 07/17/2022, 16:00. FINDINGS: Bones: Patient is status post right total hip arthroplasty, with hardware components in expected positions. The hip joint appears congruent. The visualized bony structures appear intact. Postsurgical changes of remote left total hip arthroplasty. Soft tissues: Overlying postoperative changes are noted. No suspicious soft tissue densities. Surgical clips noted in the right lower abdomen/pelvis. IMPRESSION: Status post interval right total hip arthroplasty without evidence for acute hardware complication. Dictated by: Matthew Earl M.D. on 07/17/2022 at 19:33 Approved by: Matthew Earl M.D. on 07/17/2022 at 19:34
[2022-07-17] MEDS: LACTATED RINGERS 1,000 ML 42 ML IV ×2 (17:33)
--- NOTE | 2022-07-17 17:41 | SUR.PHASEI ---
Labs drawn per orders on arrival to PACU; EKG in process; Patient asymptomatic; following all commands. Per Anesthesiologist, patient went into afib RVR 120s during surgery. History of Afib.
[2022-07-17 17:54] LABS: Add Manual Diff / Slide Review NO; Basophils Absolute Auto 0 /uL (0-100); Basophils Percent Auto 0.3 % (0-2); Eosinophils Absolute Auto 0 /uL (0-450); Eosinophils Percent Auto 0.2 % (2-4); Hematocrit 34.3 % (36-46); Hemoglobin 11.5 g/dL (12.0-16.0); Lymphocytes Absolute Auto 600 /uL (1100-4500); Lymphocytes Percent Auto 8.4 % (25-40); Mean Corpuscular HGB Conc 33.5 % (30-36); Mean Corpuscular Hemoglobin 30.5 PG (26-34); Mean Corpuscular Volume 91.1 fL (80-100); Monocytes Absolute Auto 200 /uL (0-900); Monocytes Percent Auto 2.6 % (3-14); Neutrophils Absolute Auto 6300 /uL (1500-7000); Neutrophils Percent Auto 88.5 % (50-75); Platelet Count 214 X10^3/uL (150-400); Red Blood Cell Count 3.77 X10^6/uL (4.0-5.2); Red Cell Distribution Width 14.7 % (11.6-14.8); White Blood Cell Count 7.2 X10^3/uL (4.5-11.0)
--- NOTE | 2022-07-17 18:03 | SUR.PHASEI ---
Patient assisted with bedpan to void.
[2022-07-17 18:16] LABS: Alanine Aminotransferase 17 IU/L (<35); Albumin 3.3 g/dL (3.5-5.0); Albumin Globulin Ratio 1.4 (1.0-2.8); Alkaline Phosphatase 54 U/L (38-126); Aspartate Aminotransferase 35 IU/L (14-36); Bilirubin Total 0.5 mg/dL (0.2-1.3); Blood Urea Nitrogen 14 mg/dL (7-17); Calcium 8.1 mg/dL (8.4-10.2); Carbon Dioxide 28 mmol/L (22-32); Chloride 101 mmol/L (98-107); Estimated Glomerular Filt Rate > 60 mL/min (>60); Globulin 2.4 g/dL (1.7-4.1); Glucose 111 mg/dL (80-110); HEMOLYSIS < 15 (0-50); Magnesium 1.7 mg/dL (1.6-2.3); Potassium 3.7 mmol/L (3.4-5.1); Sodium 134 mmol/L (137-145); Total Protein 5.7 g/dL (6.3-8.2)
--- NOTE | 2022-07-17 18:18 | P.CONS_ITS ---
History of Present Illness Consult details Chief complaint: Right ALBINA anterior *OPB* Narrative: Cecille Toledo is an 81-year-old female with past medical history of lung cancer s/p lobectomy, atrial fibrillation on warfarin, hypertension, and right hip osteoarthritis who medicine was consulted on by orthopedics due to A-fib RVR intraoperatively during total right hip replacement. Per Dr. Hough and anesthes ia patient briefly went into A-fib RVR during surgery for several minutes then converted back to sinus. Not hypotensive but has been hypertensive into high 190's systolic. Patient currently post-op says she feels good, and her pain is manageable. 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 She currently denies palpitations, CP, or SOB. On 1L NC post-op. Meds Home Medications and Allergies Home Medications Medication Instructions Recorded Confirmed Type cholecalciferol (vitamin D3) 25 2,000 units PO DAILY ##0 06/19/16 07/09/22 History mcg (1,000 unit) tablet (Vitamin D3) calcium carbonate 600 mg-vitamin 2 tab PO DAILY 06/24/18 07/09/22 History D3 5 mcg (200 unit) tablet (Calcium 600 + D(3)) multivitamin with minerals 1 tab PO DAILY 06/24/18 07/09/22 History multivitamin with minerals 1 tab PO DAILY 07/27/19 07/09/22 History (Hair,Skin and Nails tablet) carvedilol 6.25 mg tablet 6.25 mg PO BID 10/23/19 07/17/22 History flecainide 100 mg tablet 100 mg PO Q12H 01/25/20 07/17/22 History amlodipine 2.5 mg tablet 2.5 mg PO DAILY 05/25/21 07/09/22 History warfarin 2 mg tablet See Rx Instructions .Route 06/19/21 07/17/22 Rx .COMPLEX #90 tabs ferrous sulfate 325 mg (65 mg 325 mg PO DAILY #90 tabs 09/12/21 07/09/22 Rx iron) tablet alendronate 70 mg tablet See Rx Instructions .Route 10/02/21 07/09/22 Rx .COMPLEX #12 tabs tiotropium bromide 18 mcg capsule See Rx Instructions .Route 11/20/21 07/17/22 Rx with inhalation device (Spiriva .COMPLEX #30 caps with HandiHaler) Disabled Parking #1 ea 07/03/22 07/17/22 Rx acetaminophen 650 mg 1,300 mg PO BEDTIME 07/09/22 07/09/22 History tablet,extended release Allergies Allergy/AdvReac Type Severity Reaction Status Date / Time No Known Drug Allergies Allergy Verified 05/11/21 21:16 Review of Systems Review of Systems Narrative: All other systems reviewed with the patient and are negative unless otherwise stated. Exam Vital Signs (past 8 hours): - 07/17/22 12:13 07/17/22 12:42 07/17/22 17:25 Temperature 98.6 F 97.9 F Pulse Rate 66 67 55 L Respiratory Rate 16 16 18 Blood Pressure 193/86 H 177/79 H 154/68 H Pulse Oximetry 100 99 96 Oxygen Delivery Method Room Air Room Air Simple Mask Oxygen Flow Rate 4 07/17/22 17:32 07/17/22 17:38 07/17/22 17:42 Temperature Pulse Rate 60 56 L 54 L Respiratory Rate 13 15 12 Blood Pressure 142/69 H 146/67 H 140/69 Pulse Oximetry 93 94 95 Oxygen Delivery Method Room Air Room Air Nasal Cannula Oxygen Flow Rate 3 07/17/22 17:48 07/17/22 17:57 07/17/22 18:05 Temperature Pulse Rate 54 L 76 81 Respiratory Rate 18 14 12 Blood Pressure 147/60 H 148/84 H 145/87 H Pulse Oximetry 92 100 100 Oxygen Delivery Method Nasal Cannula Nasal Cannula Nasal Cannula Oxygen Flow Rate 3 3 3 Oxygen Delivery Method Nasal Cannula Oxygen Flow Rate 3 Narrative Exam Narrative: GEN: no acute distress, pleasant female who appears younger than stated age HEENT: moist mucous membranes, PERRL NECK: trachea midline, no JVD CV: regular rate and rhythm, no murmurs PULM: clear bilaterally ABD: soft, nontender, nondistended, no organomegaly EXT: warm and well perfused with no edema NEURO: awake, alert, oriented, no focal deficits Objective Labs 07/17/22 17:30 07/17/22 17:30 Labs: Laboratory Results - last 24 hr 07/17/22 07/17/22 07/17/22 11:56 17:30 17:30 WBC 7.2 RBC 3.77 L Hgb 11.5 L Hct 34.3 L MCV 91.1 MCH 30.5 MCHC 33.5 RDW 14.7 Plt Count 214 Neut % (Auto) 88.5 H Lymph % (Auto) 8.4 L Simpson % (Auto) 2.6 L Eos % (Auto) 0.2 L Baso % (Auto) 0.3 Neut # (Auto) 6300 Lymph # (Auto) 600 L Simpson # (Auto) 200 Eos # (Auto) 0 Baso # (Auto) 0 Sodium 134 L Potassium 3.7 Chloride 101 Carbon Dioxide 28 BUN 14 Creatinine 0.50 L Estimated GFR > 60 BUN/Creatinine Ratio 28.0 H Glucose 111 H Calcium 8.1 L Total Bilirubin 0.5 AST 35 ALT 17 Alkaline Phosphatase 54 Total Protein 5.7 L Albumin 3.3 L Globulin 2.4 Albumin/Globulin Ratio 1.4 SARS-CoV-2 (PCR) Negative [facility] Medical History (Updated 07/09/22 @ 14:12 by Kateryna Lloyd RN) Anticoagulation goal of INR 2.0 to 2.5 Atrial fibrillation (2013) Atrial fibrillation with RVR COPD (chronic obstructive pulmonary disease) Easy bruisability History of cardioversion Hypertension Lung cancer (2006) Osteoarthritis Osteoporosis (2015) Ovarian cancer (1994) Raynauds syndrome (12/14/10) Uterine cancer (1994) Surgical History (Updated 07/09/22 @ 14:07 by Kateryna Lloyd RN) Anesthesia History of bilateral salpingo-oophorectomy (BSO) History of breast augmentation (1992) History of hip replacement (01/2013) History of oophorectomy (1994) History of pneumonectomy (05/23/08) Status post hysterectomy (1994) Family History Father Hypertension Prostate cancer Grandfather Stroke Grandmother Diabetes mellitus Mother Diabetes mellitus, type II Hypertension Stroke Grandfather No problems noted. Grandmother No problems noted. Social History marital status: unmarried,single household members: none lives independently: Yes pets and animals: Yes education level: college occupational status: other Tobacco & Substance Use Smoking Status: Former smoker Tobacco: How many years used: 19 alcohol intake: current substance use type: does not use Assessment & Plan Assessment & Plan narrative: # intraoperative atrial fibrillation with RVR -had unsustained AFib RVR and then converted back to sinus spontaneously -check magnesium and potassium levels and replete to keep greater than 2 and greater than 4 respectively -continue home Coreg -restart home warfarin with goal INR 2-3 -telemetry -obtain echo -check TSH # hypertensive urgency -blood pressure systolic 190s during surgery -restart home amlodipine and Coreg as above # lung cancer s/p lobectomy -wean post-op O2 as able # s/p right total hip replacement -management per Orthopedics Medicine will continue to follow. Thank you for allowing us to participate in the care of this patient. Should you have any questions, do not hesitate to speak with us directly or call us.
[2022-07-17] MEDS: IPRATROPIUM 0.5 MG/2.5 ML NEB INH (18:36)
[2022-07-17 19:15] LABS: TSH w/ Reflex to FT4 2.52 uIU/mL (0.47-4.68)
[2022-07-17] MEDS: LACTATED RINGERS 1,000 ML 100 ML IV (19:18)
[2022-07-17] MEDS: MAGNESIUM SULFATE 2 GM/50 ML PIGGYBACK IV (19:19)
[2022-07-17] MEDS: POTASSIUM CHLORIDE 20 MEQ TAB 40 MEQ PO (19:19)
[2022-07-17] MEDS: AMLODIPINE 5 MG TABLET 2.5 MG PO (19:19)
[2022-07-17] MEDS: carvediloL 3.125 MG TABLET 6.25 MG PO (21:02)
[2022-07-17] MEDS: ACETAMINOPHEN 325 MG TABLET 650 MG PO (21:02)
[2022-07-17] MEDS: FLECAINIDE 100 MG TABLET PO (21:02)
[2022-07-17] MEDS: DOCUSATE 100 MG CAPSULE PO (21:03)
[2022-07-18] VITALS (9 sets, daily range): BP systolic 87–123; BP diastolic 36–73; PULSE 59–84; RESP 14–17; TEMP 36.3–37.1; O2SAT 94–100
[2022-07-18] MEDS: CEFAZOLIN 2 GM/100 ML PREMIX 100 ML IV (06:10)
[2022-07-18 06:16] LABS: Add Manual Diff / Slide Review NO; Basophils Absolute Auto 0 /uL (0-100); Basophils Percent Auto 0.1 % (0-2); Eosinophils Absolute Auto 0 /uL (0-450); Hematocrit 35.6 % (36-46); Hemoglobin 11.6 g/dL (12.0-16.0); Lymphocytes Absolute Auto 500 /uL (1100-4500); Lymphocytes Percent Auto 3.7 % (25-40); Mean Corpuscular HGB Conc 32.6 % (30-36); Mean Corpuscular Hemoglobin 29.5 PG (26-34); Mean Corpuscular Volume 90.7 fL (80-100); Monocytes Absolute Auto 1100 /uL (0-900); Monocytes Percent Auto 7.8 % (3-14); Neutrophils Absolute Auto 12200 /uL (1500-7000); Neutrophils Percent Auto 88.4 % (50-75); Platelet Count 249 X10^3/uL (150-400); Red Blood Cell Count 3.92 X10^6/uL (4.0-5.2); Red Cell Distribution Width 14.4 % (11.6-14.8); White Blood Cell Count 13.8 X10^3/uL (4.5-11.0)
[2022-07-18 06:20] LABS: INR 1.3 (0.9-1.3); Prothrombin Time 14.7 SECONDS (10.1-12.7)
[2022-07-18 06:23] LABS: Magnesium 2.5 mg/dL (1.6-2.3)
[2022-07-18 06:24] LABS: BUN Creatinine Ratio 29.4 (6-22); Blood Urea Nitrogen 20 mg/dL (7-17); Calcium 8.2 mg/dL (8.4-10.2); Carbon Dioxide 29 mmol/L (22-32); Chloride 100 mmol/L (98-107); Estimated Glomerular Filt Rate > 60 mL/min (>60); Glucose 126 mg/dL (80-110); HEMOLYSIS < 15 (0-50); Potassium 4.3 mmol/L (3.4-5.1); Sodium 132 mmol/L (137-145)
--- NOTE | 2022-07-18 07:16 | PM.PNPO.1 ---
Subjective Subjective Date Patient Seen: 07/18/22 Time Patient Seen: 07:16 Interval history: Patient's pain is mild. Denies fever chills. She was little short of breath and was just put on 2 L of oxygen per nasal cannula. Otherwise she is without complaints. Patient states her daughter is a physical therapy and will be able to assist her at home. Exam Vital Signs (past 8 hours): - 07/18/22 02:53 Temperature 97.4 F L Pulse Rate 69 Respiratory Rate 17 Blood Pressure 123/64 Pulse Oximetry 100 Oxygen Flow Rate 2 Fraction of Inspired Oxygen 24 SaO2/FiO2 Ratio 400 Oxygen Delivery Method Nasal Cannula Oxygen Flow Rate 2 Narrative Exam Narrative: 81-year-old female resting comfortably in bed in no apparent distress. Dressing is clean, dry and intact. Motor functions intact bilateral lower extremities. Sensation grossly intact to light touch bilateral lower extremities. Const General: cooperative and comfortable Nutritional Appearance: malnourished Orientation: alert Resp Effort & Inspection: normal respiratory effort and able to speak in complete sentences Objective Labs 07/18/22 05:45 07/18/22 05:45 Labs: Laboratory Results - last 24 hr 07/17/22 07/17/22 07/17/22 11:56 17:10 17:30 WBC RBC Hgb Hct MCV MCH MCHC RDW Plt Count Neut % (Auto) Lymph % (Auto) [place] % (Auto) Eos % (Auto) Baso % (Auto) Neut # (Auto) Lymph # (Auto) [place] # (Auto) Eos # (Auto) Baso # (Auto) PT INR Sodium Potassium Chloride Carbon Dioxide BUN Creatinine Estimated GFR BUN/Creatinine Ratio Glucose Calcium Magnesium 1.7 Total Bilirubin AST ALT Alkaline Phosphatase Total Protein Albumin Globulin Albumin/Globulin Ratio TSH 2.52 SARS-CoV-2 (PCR) Negative 07/17/22 07/17/22 07/18/22 17:30 17:30 05:45 WBC 7.2 13.8 H D RBC 3.77 L 3.92 L Hgb 11.5 L 11.6 L Hct 34.3 L 35.6 L MCV 91.1 90.7 MCH 30.5 29.5 MCHC 33.5 32.6 RDW 14.7 14.4 Plt Count 214 249 Neut % (Auto) 88.5 H 88.4 H Lymph % (Auto) 8.4 L 3.7 L Douglas % (Auto) 2.6 L 7.8 Eos % (Auto) 0.2 L 0.0 L Baso % (Auto) 0.3 0.1 Neut # (Auto) 6300 47726 H Lymph # (Auto) 600 L 500 L Douglas # (Auto) 200 1100 H Eos # (Auto) 0 0 Baso # (Auto) 0 0 PT INR Sodium 134 L Potassium 3.7 Chloride 101 Carbon Dioxide 28 BUN 14 Creatinine 0.50 L Estimated GFR > 60 BUN/Creatinine Ratio 28.0 H Glucose 111 H Calcium 8.1 L Magnesium Total Bilirubin 0.5 AST 35 ALT 17 Alkaline Phosphatase 54 Total Protein 5.7 L Albumin 3.3 L Globulin 2.4 Albumin/Globulin Ratio 1.4 TSH SARS-CoV-2 (PCR) 07/18/22 07/18/22 07/18/22 05:45 05:45 05:45 WBC RBC Hgb Hct MCV MCH MCHC RDW Plt Count Neut % (Auto) Lymph % (Auto) Douglas % (Auto) Eos % (Auto) Baso % (Auto) Neut # (Auto) Lymph # (Auto) [place] # (Auto) Eos # (Auto) Baso # (Auto) PT 14.7 H INR 1.3 Sodium 132 L Potassium 4.3 Chloride 100 Carbon Dioxide 29 BUN 20 H Creatinine 0.68 Estimated GFR > 60 BUN/Creatinine Ratio 29.4 H Glucose 126 H Calcium 8.2 L Magnesium 2.5 H Total Bilirubin AST ALT Alkaline Phosphatase Total Protein Albumin Globulin Albumin/Globulin Ratio TSH SARS-CoV-2 (PCR) [facility] Medical History Anticoagulation goal of INR 2.0 to 2.5 Atrial fibrillation (2013) Atrial fibrillation with RVR COPD (chronic obstructive pulmonary disease) Easy bruisability History of cardioversion Hypertension Lung cancer (2006) Osteoarthritis Osteoporosis (2015) Ovarian cancer (1994) Raynauds syndrome (12/14/10) Uterine cancer (1994) Surgical History Anesthesia History of bilateral salpingo-oophorectomy (BSO) History of breast augmentation (1992) History of hip replacement (01/2013) History of oophorectomy (1994) History of pneumonectomy (05/23/08) Status post hysterectomy (1994) Family History Father Hypertension Prostate cancer Grandfather Stroke Grandmother Diabetes mellitus Mother Diabetes mellitus, type II Hypertension Stroke Grandfather No problems noted. Grandmother No problems noted. Social History marital status: unmarried,single household members: none lives independently: Yes pets and animals: Yes education level: college occupational status: other Smoking Status: Former smoker Tobacco: How many years used: 19 alcohol intake: current substance use type: does not use Assessment & Plan Post-op Postoperative Procedures: Procedures Operation Date: 07/17/22 13:45 Actual Procedure Side Surgeon p Total Hip Arthroplasty/Anterior Approach Right Kymberly Hough MD Postoperative day: 1 Postoperative status narrative: Status post right total hip arthroplasty, anterior approach Hospitalist consultation for AFib with RVR during surgery, hypertensive into the 190s postop Postoperative plan: routine post-op care and see orders Postoperative plan narrative: Weight-bearing as tolerated, anterior hip precautions Multimodal pain management Hospitalist following for intraop atrial fib with RVR, hypertensive urgency, lung cancer status post lobectomy, white count elevated today at 13.8. Chest x-ray ordered Quality VTE Deep Vein Thrombosis/Pulmonary Embolism Present on Admission: No
--- NOTE | 2022-07-18 07:23 | DI.RAD.S_ITS ---
PROCEDURE: XR CHEST 1V INDICATIONS: elevated WBC TECHNIQUE: One view of the chest was acquired. COMPARISON: [facility], CR, XR CHEST 1V, 02/29/2020, 18:13. [facility], CR, XR CHEST 2V, 09/09/2018, 15:23. FINDINGS: Surgical changes and devices: Postsurgical changes of the right hemithorax, with shifting of the mediastinum to the right. Lungs and pleura: Small left pleural effusion. Mediastinum: Mediastinal contours appear normal. Heart size is normal. Bones and chest wall: No suspicious bony lesions. Overlying soft tissues appear unremarkable. IMPRESSION: Small left pleural effusion. Dictated by: Kam Owens M.D. on 07/18/2022 at 12:23 Approved by: Kam Owens M.D. on 07/18/2022 at 12:24
--- NOTE | 2022-07-18 07:34 | P.PN_ITS ---
Subjective Subjective Interval history: Patient feeling well today and in no pain. Supp O2 weaned off. Tele showed no events overnight. Exam Vital Signs (past 8 hours): - 07/18/22 02:53 Temperature 97.4 F L Pulse Rate 69 Respiratory Rate 17 Blood Pressure 123/64 Pulse Oximetry 100 Oxygen Flow Rate 2 Fraction of Inspired Oxygen 24 SaO2/FiO2 Ratio 400 Oxygen Delivery Method Nasal Cannula Oxygen Flow Rate 2 Narrative Exam Narrative: GEN: no acute distress, pleasant female who appears younger than stated age HEENT: moist mucous membranes, PERRL NECK: trachea midline, no JVD CV: regular rate and rhythm, no murmurs PULM: clear bilaterally ABD: soft, nontender, nondistended, no organomegaly EXT: warm and well perfused with no edema NEURO: awake, alert, oriented, no focal deficits Objective Labs 07/18/22 05:45 07/18/22 05:45 Labs: Laboratory Results - last 24 hr 07/17/22 07/17/22 07/17/22 11:56 17:10 17:30 WBC RBC Hgb Hct MCV MCH MCHC RDW Plt Count Neut % (Auto) Lymph % (Auto) [place] % (Auto) Eos % (Auto) Baso % (Auto) Neut # (Auto) Lymph # (Auto) [place] # (Auto) Eos # (Auto) Baso # (Auto) PT INR Sodium Potassium Chloride Carbon Dioxide BUN Creatinine Estimated GFR BUN/Creatinine Ratio Glucose Calcium Magnesium 1.7 Total Bilirubin AST ALT Alkaline Phosphatase Total Protein Albumin Globulin Albumin/Globulin Ratio TSH 2.52 SARS-CoV-2 (PCR) Negative 07/17/22 07/17/22 07/18/22 17:30 17:30 05:45 WBC 7.2 13.8 H D RBC 3.77 L 3.92 L Hgb 11.5 L 11.6 L Hct 34.3 L 35.6 L MCV 91.1 90.7 MCH 30.5 29.5 MCHC 33.5 32.6 RDW 14.7 14.4 Plt Count 214 249 Neut % (Auto) 88.5 H 88.4 H Lymph % (Auto) 8.4 L 3.7 L [place] % (Auto) 2.6 L 7.8 Eos % (Auto) 0.2 L 0.0 L Baso % (Auto) 0.3 0.1 Neut # (Auto) 6300 79268 H Lymph # (Auto) 600 L 500 L [place] # (Auto) 200 1100 H Eos # (Auto) 0 0 Baso # (Auto) 0 0 PT INR Sodium 134 L Potassium 3.7 Chloride 101 Carbon Dioxide 28 BUN 14 Creatinine 0.50 L Estimated GFR > 60 BUN/Creatinine Ratio 28.0 H Glucose 111 H Calcium 8.1 L Magnesium Total Bilirubin 0.5 AST 35 ALT 17 Alkaline Phosphatase 54 Total Protein 5.7 L Albumin 3.3 L Globulin 2.4 Albumin/Globulin Ratio 1.4 TSH SARS-CoV-2 (PCR) 07/18/22 07/18/22 07/18/22 05:45 05:45 05:45 WBC RBC Hgb Hct MCV MCH MCHC RDW Plt Count Neut % (Auto) Lymph % (Auto) [place] % (Auto) Eos % (Auto) Baso % (Auto) Neut # (Auto) Lymph # (Auto) [place] # (Auto) Eos # (Auto) Baso # (Auto) PT 14.7 H INR 1.3 Sodium 132 L Potassium 4.3 Chloride 100 Carbon Dioxide 29 BUN 20 H Creatinine 0.68 Estimated GFR > 60 BUN/Creatinine Ratio 29.4 H Glucose 126 H Calcium 8.2 L Magnesium 2.5 H Total Bilirubin AST ALT Alkaline Phosphatase Total Protein Albumin Globulin Albumin/Globulin Ratio TSH SARS-CoV-2 (PCR) [facility] Medical History Anticoagulation goal of INR 2.0 to 2.5 Atrial fibrillation (2013) Atrial fibrillation with RVR COPD (chronic obstructive pulmonary disease) Easy bruisability History of cardioversion Hypertension Lung cancer (2006) Osteoarthritis Osteoporosis (2015) Ovarian cancer (1994) Raynauds syndrome (12/14/10) Uterine cancer (1994) Surgical History Anesthesia History of bilateral salpingo-oophorectomy (BSO) History of breast augmentation (1992) History of hip replacement (01/2013) History of oophorectomy (1994) History of pneumonectomy (05/23/08) Status post hysterectomy (1994) Family History Father Hypertension Prostate cancer Grandfather Stroke Grandmother Diabetes mellitus Mother Diabetes mellitus, type II Hypertension Stroke Grandfather No problems noted. Grandmother No problems noted. Social History marital status: unmarried,single household members: none lives independently: Yes pets and animals: Yes education level: college occupational status: other Smoking Status: Former smoker Tobacco: How many years used: 19 alcohol intake: current substance use type: does not use Assessment & Plan Assessment & Plan narrative: # intraoperative atrial fibrillation with RVR, RVR now resolved -had unsustained AFib RVR and then converted back to sinus spontaneously. Has known paroxysmal A-fib. 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 Afebrile. -CXR without PNA -check UA # hypertensive urgency, resolved -blood pressure systolic 190s during surgery -restart home amlodipine and Coreg as above -BP now 120's systolic # lung cancer s/p lobectomy -CXR with small left pleural effusion -give 1 time dose of 20 IV lasix -able to wean off O2 # s/p right total hip replacement -management per Orthopedics Medicine will continue to follow. Thank you for allowing us to participate in the care of this patient. Should you have any questions, do not hesitate to speak with us directly or call us. Quality VTE Deep Vein Thrombosis/Pulmonary Embolism Present on Admission: No
[2022-07-18] MEDS: AMLODIPINE 5 MG TABLET 2.5 MG PO (09:16)
[2022-07-18] MEDS: carvediloL 3.125 MG TABLET 6.25 MG PO (09:16)
[2022-07-18] MEDS: FLECAINIDE 100 MG TABLET PO ×2 (09:16→21:58)
[2022-07-18] MEDS: FERROUS SULFATE 325 MG TABLET PO (09:17)
[2022-07-18] MEDS: ACETAMINOPHEN 325 MG TABLET 650 MG PO ×3 (09:17→21:58)
[2022-07-18] MEDS: DOCUSATE 100 MG CAPSULE PO ×2 (09:18→21:58)
[2022-07-18] MEDS: IPRATROPIUM 0.5 MG/2.5 ML NEB INH ×2 (09:44→14:28)
--- NOTE | 2022-07-18 11:54 | PT.IIE ---
Current Diagnoses Unilateral primary osteoarthritis, right hip (07/17/22) Surgery Performed Operation Date: 07/17/22 13:45 Actual Procedures p Total Hip Arthroplasty/Anterior Approach(Right) - Kymberly Hough MD Surgical History (Last Reviewed 07/18/22 @ 07:18 by Cheo Moreno PA-C) Anesthesia History of bilateral salpingo-oophorectomy (BSO) History of breast augmentation (1992) History of hip replacement (01/2013) History of oophorectomy (1994) History of pneumonectomy (05/23/08) Status post hysterectomy (1994) Medical History (Last Reviewed 07/18/22 @ 07:18 by Cheo Moreno PA-C) Anticoagulation goal of INR 2.0 to 2.5 Atrial fibrillation (2013) Atrial fibrillation with RVR COPD (chronic obstructive pulmonary disease) Easy bruisability History of cardioversion Hypertension Lung cancer (2006) Osteoarthritis Osteoporosis (2015) Ovarian cancer (1994) Raynauds syndrome (12/14/10) Uterine cancer (1994) Physical Therapy Inpatient Evaluation/Re-Eval M1 PT/OT-IP Prior Functional Status Start: 07/18/22 11:40 Freq: NEEDED Status: Active Protocol: Document 07/18/22 11:40 ES (Rec: 07/18/22 11:54 ES [id number]) Medical Review Prior Functional Status Medical History Reviewed Yes Diet/Fluid Consistency Regular Communication WFL Mobility and Gait Indep without AD in the home and community. Activities of Daily Living and IADL's Indep. Has a feather shaper for cleaning. Prior Functional Level (Other details) Normally drives herself. Social History Household Members none Living Arrangements House Number of Floors (Floors) Two Floors Number of Stairs To Enter/Railing? 2 BERENICE without rail Home Environment Walk in Shower Home Equipment Front Wheel Walker,Raised Toilet Seat w/Armrests,Shower Seat without Backrest,Hand Held Shower,Long Handled Shoe Horn,Billet Recorder,Sock Aid,Grab Bars In Shower Employment Status Retired Additional Social History Comment Patient lives in a 2-story home but is able to live on the main level. Her daughter is a PT and will be staying with her for 2 weeks, then the patient's sister will be staying with her to help. M2 PT-IP Current Condition Start: 07/18/22 11:40 Freq: NEEDED Status: Active Protocol: Document 07/18/22 11:40 ES (Rec: 07/18/22 11:54 ES [id number]) Physical Therapy Current Condition Current Condition Evaluation Date 07/18/22 Treatment Diagnosis s/p R ALBINA Onset Date 07/17/22 M3 PT-IP Subjective Start: 07/18/22 11:40 Freq: NEEDED Status: Active Protocol: Document 07/18/22 11:40 ES (Rec: 07/18/22 11:54 ES [id number]) Subjective Physical Therapy Visit Type Type Initial Evaluation Visit Start Time 10:25 Visit Stop Time 11:04 Total Visit Minutes 39 Physical Therapy Visit Comments Patient Comments Patient alert in bed, daughter present. Patient was starting to get out of bed with PT entered room, stating her bottom was sore from being in bed all night. Not having any hip pain. Patient agreeable to work with PT. Therapy Pain Assessment Pain Present Pain Present Denied Pain M4 PT-IP Mobility and Gait Start: 07/18/22 11:40 Freq: NEEDED Status: Active Protocol: Document 07/18/22 11:40 ES (Rec: 07/18/22 11:54 ES [id number]) PT-Bed Mobility Assessment Supine to Sit Supine to Sit Standby Assistance,Head of Bed Elevated Scooting Scooting to Edge of Bed Independent PT-Transfer Assessment Sit to and From Stand Sit to and from Stand Standby Assistance,Use of Upper Extremities Equipment Transfer Assistive Device Gait Belt,Front Wheeled Walker Orthotic/Prosthetic Devices or Brace: No Transfers Transfer Destination Chair,Toilet Transfer Technique Ambulated Transfer Ability Level of Assist Contact Guard Assistance,Use of Upper Extremities Comments Mobility Comments Patient transferred to L side of bed, then to bathroom and then to recliner. Patient required cues for hand placement for safety during transfers, and min cues for anterior precautions during turning. Gait Assessment Gait Gait Assistance Required: Contact Guard Assist Distance (Feet) 25 Assistive Devices Assistive Device Gait Belt,Front Wheeled Walker Orthotic/Prosthetic Devices or Brace: No Gait Deviations General Gait Pattern Decreased Stride Length, Decreased Feet Clearance, Flexed Trunk,Step-to Gait Factors Limiting Gait Function Factors Limiting Gait Function Decreased Strength,Limited Range of Motion Comments Gait Comments Patient ambulated in the room, with cues for anterior precautions during turning. She initially demonstrated step-to pattern, progressing to step-through with cues. She tended to flex forward and look down at her feet, able to correct with cueing. PT-Balance Assessment Sitting Balance and Reactions Static Sitting Balance Ability Good Dynamic Sitting Balance Ability Good Standing Balance and Reactions Static Standing Balance Ability Good Dynamic Standing Balance Ability Fair Device Used FWW M5 PT-IP Objective Assessments Start: 07/18/22 11:40 Freq: NEEDED Status: Active Protocol: Document 07/18/22 11:40 ES (Rec: 07/18/22 11:54 ES [id number]) Orientation Orientation/Cognition Level of Alertness Alert Orientation Name,Age,Birthday,Month,Date, Year,Day of Week,Place, Situation Language Function Ability No Deficits Noted Safety Awareness Understands Safety Issues Memory Description No Deficits Noted Gross Range of Motion Upper Extremity ROM Assessment Within Functional Limits Lower Extremity ROM Assessment Right Impaired Impairments 2/2 precautions, stiffness Strength Upper Extremity Strength Assessment Within Functional Limits Lower Extremity Strength Assessment Right Impaired Hip R hip grossly 3+/5 Knee WFL Ankle WFL Coordination Assessment Gross Coordination Gross Coordination WNL Sensation Assessment Sensation Gross Sensation WNL M6 PT-IP Treatment Start: 07/18/22 11:40 Freq: NEEDED Status: Active Protocol: Document 07/18/22 11:40 ES (Rec: 07/18/22 11:54 ES [id number]) Physical Therapy Treatment Exercises Exercises Ankle Pumps,Gluteal Sets,Quad Sets,Heel Slides Education Education Provided Precautions,Weight Bearing Status,Post-Op Packet,Safety M7 PT-IP Assessment and Plan Start: 07/18/22 11:40 Freq: NEEDED Status: Active Protocol: Document 07/18/22 11:40 ES (Rec: 07/18/22 11:54 ES [id number]) PT Summary Assessment and Plan Potential Rehabilitation Potential Excellent Status of Condition at Evaluation Stable Summary Impairments Pain,ROM,Strength,Balance,Bed Mobility,Transfers,Gait Assessment Summary Patient is a 81 year old female POD 1 for R anterior ALBINA. She presents below her baseline mobility and function due to the above impairments. She was able to transfer out of bed, to to the toilet, and then to the recliner with SBA/ CGA using FWW, requiring cues for precautions and safety. She denied any significant pain during activity. She will benefit from further PT to increase ambulation to household distances and for stair training with patient and daughter. Anticipate patient will d/c home this afternoon after PT session if she is able to manage with daugther's assistance, as she has good support and all necessary equipment at home. Goals Bed Mobility Goal Independent Transfer Goal Independent,Front Wheeled Walker Gait Goal Independent,Front Wheel Walker Gait Distance 100 Other Goals Patient will be able to ascend /descend 2 stairs without rail with LRAD and CGA. Days to Meet Goals 3 Frequency of Treatment Frequency Of Treatment Twice a Day Treatment Plan Physical Therapy Treatment Plan Bed Mobility Training,Transfer Training,Gait Training, Therapeutic Exercise,Post Op Education,Discharge Planning, Hot or Cold Pack,Manual Therapy Precautions Anterior Hip Precautions No Hip Extension,No Hip External Rotation Weight Bearing Status Weight Bearing Status Weight Bear as Tolerated Recommendations To Nursing Amount of Assist Needed Standby Assistance Discharge Recommendations PT Discharge Recommendations Home with Assistance Transportation Needs at Discharge Private Vehicle
[2022-07-18] MEDS: FUROSEMIDE 20 MG/2 ML VIAL IV (13:03)
--- NOTE | 2022-07-18 13:30 | PT.IPTN ---
Current Diagnoses Unilateral primary osteoarthritis, right hip (07/17/22) Surgery Performed Operation Date: 07/17/22 13:45 Actual Procedures p Total Hip Arthroplasty/Anterior Approach(Right) - Kymberly Hough MD Physical Therapy Treatment Note M2 PT-IP Current Condition Start: 07/18/22 11:40 Freq: NEEDED Status: Active Protocol: Document 07/18/22 11:40 ES (Rec: 07/18/22 11:54 ES [id number]) Physical Therapy Current Condition Current Condition Evaluation Date 07/18/22 Treatment Diagnosis s/p R ALBINA Onset Date 07/17/22 M3 PT-IP Subjective Start: 07/18/22 11:40 Freq: NEEDED Status: Active Protocol: Document 07/18/22 13:54 TS (Rec: 07/18/22 14:08 TS [id number]) Subjective Physical Therapy Visit Type Type Treatment Note Visit Start Time 13:30 Visit Stop Time 13:49 Total Visit Minutes 19 Notes Pt's step-daughter present for session. Physical Therapy Visit Comments Patient Comments Pt reports no pain at rest, increases with mobility, agreeable to PT. M4 PT-IP Mobility and Gait Start: 07/18/22 11:40 Freq: NEEDED Status: Active Protocol: Document 07/18/22 13:54 TS (Rec: 07/18/22 14:08 TS [id number]) PT-Bed Mobility Assessment Supine to Sit Supine to Sit Standby Assistance,Head of Bed Elevated Scooting Scooting to Edge of Bed Independent PT-Transfer Assessment Sit to and From Stand Sit to and from Stand Standby Assistance,Contact Guard Assistance,Use of Upper Extremities Equipment Transfer Assistive Device Gait Belt,Front Wheeled Walker Orthotic/Prosthetic Devices or Brace: No Comments Mobility Comments Pt found resting in bed, agreeable to PT session. She recalled 2/2 hip precautions prior to treatment. Supine to sit SBA with HOB elevated, provided cues for feet flat on floor sitting EOB. Sit to stand x1 SBA with BUE support on FWW, provided cues for weight forward. Pt ambulated to toilet ~10' SBA, reported some dizziness. Sit to stand from toilet CGA with FWW and BUE on FWW. She ambulated in hallway ~200' SBA with FWW slow/cautious step to gait, demonstrated good carryover of step to gait, self-cues for eyes up. Stairs x3 SBA for ascending, Nikia for descending , provided education for sequencing. Pt was left in chair with call light nearby, daughter in room, RN notified. Gait Assessment Gait Gait Assistance Required: Standby Assistance Distance (Feet) 200 Assistive Devices Assistive Device Gait Belt,Front Wheeled Walker Orthotic/Prosthetic Devices or Brace: No Gait Deviations General Gait Pattern Decreased Stride Length, Decreased Feet Clearance, Flexed Trunk,Step-to Gait Factors Limiting Gait Function Factors Limiting Gait Function Decreased Strength,Limited Range of Motion Comments Gait Comments See mobility comments. Stair Climbing Assessment Evaluation Level of Assist On Stairs Standby Assistance,Minimal Assistance Devices Stair Climbing Assistive Devices Left Railing,Right Railing Technique/Endurance Stair Climbing Direction Ascend and Descend Stair Climbing Technique Step to Step Number of Steps Climbed 3 Comments Stair Climbing Comments Nikia for descending steps. PT-Balance Assessment Sitting Balance and Reactions Static Sitting Balance Ability Good Dynamic Sitting Balance Ability Good Standing Balance and Reactions Static Standing Balance Ability Good Dynamic Standing Balance Ability Fair Device Used FWW M5 PT-IP Objective Assessments Start: 07/18/22 11:40 Freq: NEEDED Status: Active Protocol: Document 07/18/22 11:40 ES (Rec: 07/18/22 11:54 ES [id number]) Orientation Orientation/Cognition Level of Alertness Alert Orientation Name,Age,Birthday,Month,Date, Year,Day of Week,Place, Situation Language Function Ability No Deficits Noted Safety Awareness Understands Safety Issues Memory Description No Deficits Noted Gross Range of Motion Upper Extremity ROM Assessment Within Functional Limits Lower Extremity ROM Assessment Right Impaired Impairments 2/2 precautions, stiffness Strength Upper Extremity Strength Assessment Within Functional Limits Lower Extremity Strength Assessment Right Impaired Hip R hip grossly 3+/5 Knee WFL Ankle WFL Coordination Assessment Gross Coordination Gross Coordination WNL Sensation Assessment Sensation Gross Sensation WNL M6 PT-IP Treatment Start: 07/18/22 11:40 Freq: NEEDED Status: Active Protocol: Document 07/18/22 13:54 TS (Rec: 07/18/22 14:08 TS [id number]) Physical Therapy Treatment Education Education Provided Precautions,Weight Bearing Status,Post-Op Packet,Safety M7 PT-IP Assessment and Plan Start: 07/18/22 11:40 Freq: NEEDED Status: Active Protocol: Document 07/18/22 13:54 TS (Rec: 05/10/23 14:08 TS [id number]) PT Summary Assessment and Plan Potential Rehabilitation Potential Excellent Status of Condition at Evaluation Stable Summary Impairments Pain,ROM,Strength,Balance,Bed Mobility,Transfers,Gait Assessment Summary Pt progressed gait to ~200' in hallway this session SBA w/ FWW, required short stadning rest break for fatigue. She performed stairs x3, SBA for ascending, Nikia for descending . She recalled 2/2 precautions and demonstrates good carryover of sit to stand sequencing. PT recommends return home with assist from family. Pt has daughter staying with her for the next 2 weeks and can provide any assist she may need. Goals Bed Mobility Goal Independent Transfer Goal Independent,Front Wheeled Walker Gait Goal Independent,Front Wheel Walker Gait Distance 100 Other Goals Patient will be able to ascend /descend 2 stairs without rail with LRAD and CGA. Days to Meet Goals 3 Frequency of Treatment Frequency Of Treatment Twice a Day Treatment Plan Physical Therapy Treatment Plan Bed Mobility Training,Transfer Training,Gait Training, Therapeutic Exercise,Post Op Education,Discharge Planning, Hot or Cold Pack,Manual Therapy Other Recommendations and Next Treatment monitor VSS during session Focus amb as cristal without AD climb 1 step without railing Precautions Anterior Hip Precautions No Hip Extension,No Hip External Rotation Weight Bearing Status Weight Bearing Status Weight Bear as Tolerated Recommendations To Nursing Amount of Assist Needed Standby Assistance Discharge Recommendations PT Discharge Recommendations Home with Assistance Transportation Needs at Discharge Private Vehicle
[2022-07-18] MEDS: WARFARIN 1 MG TABLET 2 MG PO (17:01)
[2022-07-18 18:11] LABS: Appearance Urine UA CLEAR; Bilirubin Urine UA NEGATIVE (NEGATIVE); Color Urine UA YELLOW; Glucose Urine UA NEGATIVE (Negative); Ketones Urine UA NEGATIVE (NEGATIVE); Leukocyte Esterase Urine UA NEGATIVE (NEGATIVE); Nitrite Urine UA NEGATIVE (Negative); Occult Blood Urine UA NEGATIVE (Negative); Protein Urine UA NEGATIVE (Negative); Specific Gravity Urine UA <=1.005 (1.000-1.035); Urobilinogen Urine UA 0.2 E.U./dL (0.2)
[2022-07-18 18:25] LABS: pH Urine UA 5.5 (4.5-8.0)
[2022-07-18 18:37] LABS: Bacteria Urine Occasional (0-1); Culture Indicated Urine Cult Not Indicated; Hyaline Casts Urine 5-10/LPF; RBC Urine 1-5/HPF (0-5/HPF); Squamous Epithelial Cell Urine 1-5 /HPF (0-5/HPF); WBC Urine 1-5/HPF (0-5/HPF)
[2022-07-19 04:00] VITALS: BP 114/56; PULSE 68; RESP 16; TEMP 36.5; O2SAT 94
[2022-07-19 05:51] LABS: Add Manual Diff / Slide Review NO; Basophils Absolute Auto 0 /uL (0-100); Basophils Percent Auto 0.3 % (0-2); Eosinophils Absolute Auto 0 /uL (0-450); Eosinophils Percent Auto 0.1 % (2-4); Lymphocytes Absolute Auto 1000 /uL (1100-4500); Lymphocytes Percent Auto 11.9 % (25-40); Mean Corpuscular HGB Conc 34.7 % (30-36); Mean Corpuscular Hemoglobin 31.2 PG (26-34); Mean Corpuscular Volume 89.9 fL (80-100); Monocytes Absolute Auto 1300 /uL (0-900); Monocytes Percent Auto 14.6 % (3-14); Neutrophils Absolute Auto 6400 /uL (1500-7000); Neutrophils Percent Auto 73.1 % (50-75); Platelet Count 203 X10^3/uL (150-400); Red Blood Cell Count 3.22 X10^6/uL (4.0-5.2); Red Cell Distribution Width 14.1 % (11.6-14.8); White Blood Cell Count 8.7 X10^3/uL (4.5-11.0)
[2022-07-19 06:13] LABS: INR 1.6 (0.9-1.3); Prothrombin Time 18.6 SECONDS (10.1-12.7)
[2022-07-19] MEDS: IBUPROFEN 400 MG TABLET PO (06:38)
[2022-07-19 06:57] LABS: BUN Creatinine Ratio 38.8 (6-22); Blood Urea Nitrogen 33 mg/dL (7-17); Calcium 7.9 mg/dL (8.4-10.2); Carbon Dioxide 29 mmol/L (22-32); Chloride 98 mmol/L (98-107); Estimated Glomerular Filt Rate > 60 mL/min (>60); Glucose 103 mg/dL (80-110); HEMOLYSIS < 15 (0-50); Potassium 4.2 mmol/L (3.4-5.1); Sodium 130 mmol/L (137-145)
[2022-07-19 06:58] LABS: Magnesium 2.1 mg/dL (1.6-2.3)
[2022-07-19 07:43] VITALS: PULSE 70; RESP 18; O2SAT 94
[2022-07-19] MEDS: IPRATROPIUM 0.5 MG/2.5 ML NEB INH (07:43)
--- NOTE | 2022-07-19 07:57 | P.DS_ITS ---
History of Present Illness History of Present Illness Date Patient Seen: 07/19/22 Time Patient Seen: 07:57 Chief complaint: Right hip pain Narrative: Patient states her right hip pain is mild. Denies fever or chills. No shortness of breath or chest pain. Discharge Providers Provider Date of admission: 07/17/22 18:39 Discharge Date: 07/19/22 Primary care physician: oRsio Puckett MD Consults: 07/09/22 15:18 Consult to Anesthesiology Routine Comment: Consulting Provider: Anesthesiologist Reason for consultation: Surgeon requested re: Cardiac history, pneumonectomy 07/17/22 06:00 Consult to Anesthesiology Routine Comment: Consulting Provider: Anesthesiologist Reason for consultation: Regional block for post operative pain control 07/17/22 18:17 Consult to Hospitalist Service Routine Comment: Consulting Provider: Bert Sandoval Reason for consultation: A-fib RVR, hypertensive urgency Has provider been notified: Yes 07/17/22 18:39 Consult to Discharge Planning Routine Comment: Consult to Hospitalist Service Routine Comment: Consulting Provider: Bert Sandoval Reason for consultation: cardiac arrhythmia, htn, pulmonary Has provider been notified: Yes Consult to Physical Therapy Evaluate & Treat Comment: Physician Instructions: post op ALBINA protocol Discharge provider: Cheo Moreno PA-C Summary Hospital Course Discharge Diagnosis: Right hip osteoarthritis Atrial fibrillation with RVR patient is restarted on warfarin Hypertensive urgency Lung cancer status post lobectomy weaned off O2 Hospital Course: Right total hip arthroplasty anterior approach Same procedure as scheduled: Yes Indications: The patient has had progressively worsening right hip pain with radiographic changes consistent with arthritis. Non-operative management has failed and the patient has requested total hip replacement. The risks, benefits and alternatives to surgery were discussed with the patient prior to proceeding. Risks discussed included, but were not limited to, failure to relieve pain, leg length discrepancy, dislocation, stiffness, infection, nerve damage, deep venous thrombosis, pulmonary embolism, stroke, coma, heart attack, permanent paralysis and , as well as the potential need for eventual revision of the prosthetic. Surgeon: Kymberly Hough Sales Utility Representative: Lynnette Valera Anesthesia Type: General Operative Notes Findings: Severe right hip osteoarthritis Closure Type: primary Specimen(s): none sent Prosthetic devices, grafts, tissues, transplants, or devices: Right total hip arthroplasty size 50 R3 cup size 6 standard offset anthology luna m neutral poly liner, 32 x -3 cobalt,one 6.5 mm screw Estimated Blood Loss (mL): 250 Blood products transfused: none Patient admitted for the above-mentioned procedure. Patient taken to the operating room after consent was given. Patient underwent right total hip arthroplasty, anterior approach. Per Dr. Hough and anesthesia patient briefly went into AFib with RVR during surgery for several minutes and converted back to sinus. Patient had hypertensive urgency after surgery and consultation provided by hospitalist. Patient to continue home Coreg she is restarted on her warfarin she was also restarted on her amlodipine she is weaned off O2. She is worked with physical therapy. Anterior hip precautions with weight-bearing as tolerated. Patient will be discharged home today in stable condition. Patient to follow-up with registered safety engineer as outpatient. Status at Discharge Cognitive/behavioral status at discharge: at baseline, oriented Functional status at discharge: uses cane/walker Overall status at discharge: patient is progressing back to baseline Exam Vital Signs (past 8 hours): - 07/19/22 04:00 07/19/22 07:43 Temperature 97.7 F Pulse Rate 68 70 Respiratory Rate 16 18 Blood Pressure 114/56 L Pulse Oximetry 94 94 Oxygen Delivery Method Room Air Oxygen Flow Rate 0 0 Fraction of Inspired Oxygen 21 Fraction of Inspired Oxygen 21 SaO2/FiO2 Ratio 447 Oxygen Delivery Method Room Air Oxygen Flow Rate 0 Narrative Exam Narrative: 81-year-old female resting comfortably in bed in no apparent distress. Dressing is Clean, dry, intact.. Motor functions intact bilateral lower extremities. Sensation grossly intact to light touch bilateral lower extremities. Const General: cooperative and comfortable Nutritional Appearance: underweight Resp Effort & Inspection: normal respiratory effort and able to speak in complete sentences Objective Imaging Chest x-ray: Radiologist's impression: Chest x-ray taken July 18, 2022 shows small left pleural effusion Labs 07/19/22 05:30 07/19/22 05:30 Labs: Laboratory Results - last 24 hr 07/18/22 07/19/22 07/19/22 18:00 05:30 05:30 WBC 8.7 RBC 3.22 L Hgb 10.0 L Hct 29.0 L MCV 89.9 MCH 31.2 MCHC 34.7 RDW 14.1 Plt Count 203 Neut % (Auto) 73.1 Lymph % (Auto) 11.9 L Angelina % (Auto) 14.6 H Eos % (Auto) 0.1 L Baso % (Auto) 0.3 Neut # (Auto) 6400 Lymph # (Auto) 1000 L Angelina # (Auto) 1300 H Eos # (Auto) 0 Baso # (Auto) 0 PT INR Sodium 130 L Potassium 4.2 Chloride 98 Carbon Dioxide 29 BUN 33 H Creatinine 0.85 Estimated GFR > 60 BUN/Creatinine Ratio 38.8 H Glucose 103 Calcium 7.9 L Magnesium Urine Color Yellow Urine Appearance Clear Urine pH 5.5 Ur Specific [place] <=1.005 Urine Protein Negative Urine Glucose (UA) Negative Urine Ketones Negative Urine Occult Blood Negative Urine Nitrate Negative Urine Bilirubin Negative Urine Urobilinogen 0.2 Ur Leukocyte Esterase Negative Urine RBC 1-5/hpf Urine WBC 1-5/hpf Ur Squamous Epith Cells 1-5 /hpf Urine Bacteria Occasional (0-1) Hyaline Casts 5-10/lpf Ur Culture Indicated? Cult not indicated 07/19/22 07/19/22 05:30 05:30 WBC RBC Hgb Hct MCV MCH MCHC RDW Plt Count Neut % (Auto) Lymph % (Auto) Angelina % (Auto) Eos % (Auto) Baso % (Auto) Neut # (Auto) Lymph # (Auto) Angelina # (Auto) Eos # (Auto) Baso # (Auto) PT 18.6 H INR 1.6 H Sodium Potassium Chloride Carbon Dioxide BUN Creatinine Estimated GFR BUN/Creatinine Ratio Glucose Calcium Magnesium 2.1 Urine Color Urine Appearance Urine pH Ur Specific [place] Urine Protein Urine Glucose (UA) Urine Ketones Urine Occult Blood Urine Nitrate Urine Bilirubin Urine Urobilinogen Ur Leukocyte Esterase Urine RBC Urine WBC Ur Squamous Epith Cells Urine Bacteria Hyaline Casts Ur Culture Indicated? [facility] Medical History Anticoagulation goal of INR 2.0 to 2.5 Atrial fibrillation (2013) Atrial fibrillation with RVR COPD (chronic obstructive pulmonary disease) Easy bruisability History of cardioversion Hypertension Lung cancer (2006) Osteoarthritis Osteoporosis (2015) Ovarian cancer (1994) Raynauds syndrome (12/14/10) Uterine cancer (1994) Surgical History Anesthesia History of bilateral salpingo-oophorectomy (BSO) History of breast augmentation (1992) History of hip replacement (01/2013) History of oophorectomy (1994) History of pneumonectomy (05/23/08) Status post hysterectomy (1994) Family History Father Hypertension Prostate cancer Grandfather Stroke Grandmother Diabetes mellitus Mother Diabetes mellitus, type II Hypertension Stroke Grandfather No problems noted. Grandmother No problems noted. Social History marital status: unmarried,single household members: none lives independently: Yes pets and animals: Yes education level: college occupational status: other Smoking Status: Former smoker Tobacco: How many years used: 19 alcohol intake: current substance use type: does not use Discharge Assessment & Plan Assessment and Plan Assessment: Stable Plan of Treatment: Weight-bearing as tolerated with anterior hip precautions Tylenol and oxycodone as needed for postop pain Follow-up with registered safety engineer as outpatient Discharge home today in stable condition Discharge Plan Discharge Plan Patient Disposition: Home Discharge orders & Medications Prescriptions: New acetaminophen 325 mg Tablet 650 mg PO Q6H Qty: 60 0RF docusate sodium 100 mg Capsule 100 mg PO BID Qty: 20 0RF Continued cholecalciferol (vitamin D3) [Vitamin D3] 1,000 UNIT tablet 2,000 units PO DAILY Qty: 0 carvedilol 6.25 mg tablet 6.25 mg PO BID Rx Instructions: must administer with a meal/food warfarin 2 mg tablet See Rx Instructions .ROUTE .COMPLEX Qty: 90 3RF Dose Instruction: TAKE 1/2 TABLET ON SATURDAY, TAKE 1 TABLET DAILY ON ALL OTHER DAYS OF THE WEEK OR DIRECTED Rx Instructions: TAKE 1/2 TABLET ON SATURDAY, TAKE 1 TABLET DAILY ON ALL OTHER DAYS OF THE WEEK OR DIRECTED alendronate 70 mg tablet See Rx Instructions .ROUTE .COMPLEX Qty: 12 2RF Dose Instruction: TAKE 1 TABLET BY MOUTH ONCE PER WEEK Rx Instructions: TAKE 1 TABLET BY MOUTH ONCE PER WEEK Spiriva with HandiHaler 18 mcg capsule, w/inhalation device See Rx Instructions .ROUTE .COMPLEX Qty: 30 11RF Dose Instruction: INHALE THE CONTENTS OF 1 CAPSULE VIA INHALATION DEVICE EVERY DAY Rx Instructions: INHALE THE CONTENTS OF 1 CAPSULE VIA INHALATION DEVICE EVERY DAY (DME) Disabled Parking See Rx Instructions .ROUTE .MEDSUPPLY Qty: 1 0RF Rx Instructions: I find this patient to be medically disabled and qualified for Permanent Disabled Parking as indicated, and signed, on the Accompanying Disabled Parking Application for Individuals calcium carbonate-vitamin D3 [Calcium 600 + D(3)] 600 mg(1,500mg) -200 unit Tablet 2 tab PO DAILY multivitamin with minerals Tablet 1 tab PO DAILY Hair,Skin and Nails Tablet 1 tab PO DAILY flecainide 100 mg Tablet 100 mg PO Q12H amlodipine 2.5 mg Tablet 2.5 mg PO DAILY ferrous sulfate 325 mg (65 mg iron) Tablet 325 mg PO DAILY Qty: 90 3RF Discontinued acetaminophen 650 mg Tablet Extended Release 1,300 mg PO BEDTIME Follow up/Referrals: Rosio Puckett MD [Primary Care Provider] - Kymberly Hough MD [Physician] - As previously scheduled (Follow up with Sruthi Valera on 07/31/2022 @ 3:30 pm at [facility] office in [place].) Discharge Health Status Health Concerns: Patient will f/u outpatient with cardiology. Diet/Activity/Treatments Diet: Diet as Tolerated Activity: Weightbearing as tolerated to right leg. Anterior hip precautions. Cold/Heat Therapy: Ice to hip as needed for pain. Skin/Wound/Dressing Care Report to your healthcare provider any signs of infection, such as:: chills, fever, night sweats, unusual drainage and unusual redness Dressing: May shower. Leave Aquacel dressing in place until follow up in office. No bathing or otherwise soaking incision. Call the office if the dressing becomes saturated inside. Visit Report/Discharge Packet Instructions: DI for Heart Failure, DI for Prescription Opioid Use Stand Alone Forms: Patient Portal/API, Stroke Signs & Symptoms, Surgery Discharge Discharge Data Primary Care Provider: Rosio Puckett Quality VTE Deep Vein Thrombosis/Pulmonary Embolism Present on Admission: No
[2022-07-19 08:00] VITALS: BP 117/56; PULSE 72; RESP 16; TEMP 36.9; O2SAT 94
[2022-07-19] MEDS: FERROUS SULFATE 325 MG TABLET PO (08:16)
[2022-07-19] MEDS: ACETAMINOPHEN 325 MG TABLET 650 MG PO (08:16)
[2022-07-19] MEDS: DOCUSATE 100 MG CAPSULE PO (08:17)
[2022-07-19] MEDS: FLECAINIDE 100 MG TABLET PO (08:17)
[2022-07-19] MEDS: AMLODIPINE 5 MG TABLET 2.5 MG PO (08:17)
--- NOTE | 2022-07-19 10:11 | PT.IPTN ---
Current Diagnoses Unilateral primary osteoarthritis, right hip (07/17/22) Surgery Performed Operation Date: 07/17/22 13:45 Actual Procedures p Total Hip Arthroplasty/Anterior Approach(Right) - Kymberly Hough MD Physical Therapy Treatment Note M2 PT-IP Current Condition Start: 07/18/22 11:40 Freq: NEEDED Status: Discharge Protocol: Document 07/18/22 11:40 ES (Rec: 07/18/22 11:54 ES [id number]) Physical Therapy Current Condition Current Condition Evaluation Date 07/18/22 Treatment Diagnosis s/p R ALBINA Onset Date 07/17/22 M3 PT-IP Subjective Start: 07/18/22 11:40 Freq: NEEDED Status: Discharge Protocol: Document 07/19/22 09:55 KS (Rec: 07/19/22 11:45 KS [id number]) Subjective Physical Therapy Visit Type Type Treatment Note Visit Start Time 09:55 Visit Stop Time 10:11 Total Visit Minutes 16 Notes Pt's step-daughter (who is a PT) present for session. Number of HEATING AND BLENDING SUPERVISOR Visits 2 Physical Therapy Visit Comments Patient Comments Pt feels ready to go home. M4 PT-IP Mobility and Gait Start: 07/18/22 11:40 Freq: NEEDED Status: Discharge Protocol: Document 07/19/22 09:55 KS (Rec: 07/19/22 11:45 KS [id number]) PT-Transfer Assessment Sit to and From Stand Sit to and from Stand Standby Assistance,1 Person Assistance,Use of Upper Extremities Equipment Transfer Assistive Device Gait Belt,Front Wheeled Walker Orthotic/Prosthetic Devices or Brace: No Transfers Transfer Destination Chair Transfer Technique Ambulated Transfer Ability Level of Assist Standby Assistance,1 Person Assistance,Use of Upper Extremities Comments Mobility Comments Pt in chair w/ DIL in room upon arrival. SBA for sit<> stand w/ FWW and for ~50 ft ambulation. Pt has good understanding of precautions and has suppotive family of multiple PTs at home. Gait Assessment Gait Gait Assistance Required: Standby Assistance Distance (Feet) 50 Assistive Devices Assistive Device Gait Belt,Front Wheeled Walker Orthotic/Prosthetic Devices or Brace: No Gait Deviations General Gait Pattern Decreased Stride Length, Decreased Feet Clearance, Flexed Trunk,Step-to Gait Factors Limiting Gait Function Factors Limiting Gait Function Decreased Strength,Limited Range of Motion Comments Gait Comments Ambulated 50 ft, able to improve gait to small step through step pattern. Stair Climbing Assessment Comments Stair Climbing Comments Feels confident to complete at home. PT-Balance Assessment Sitting Balance and Reactions Static Sitting Balance Ability Good Dynamic Sitting Balance Ability Good Standing Balance and Reactions Static Standing Balance Ability Good Dynamic Standing Balance Ability Fair Device Used FWW M5 PT-IP Objective Assessments Start: 07/18/22 11:40 Freq: NEEDED Status: Discharge Protocol: Document 07/18/22 11:40 ES (Rec: 07/18/22 11:54 ES [id number]) Orientation Orientation/Cognition Level of Alertness Alert Orientation Name,Age,Birthday,Month,Date, Year,Day of Week,Place, Situation Language Function Ability No Deficits Noted Safety Awareness Understands Safety Issues Memory Description No Deficits Noted Gross Range of Motion Upper Extremity ROM Assessment Within Functional Limits Lower Extremity ROM Assessment Right Impaired Impairments 2/2 precautions, stiffness Strength Upper Extremity Strength Assessment Within Functional Limits Lower Extremity Strength Assessment Right Impaired Hip R hip grossly 3+/5 Knee WFL Ankle WFL Coordination Assessment Gross Coordination Gross Coordination WNL Sensation Assessment Sensation Gross Sensation WNL M6 PT-IP Treatment Start: 07/18/22 11:40 Freq: NEEDED Status: Discharge Protocol: Document 07/19/22 09:55 KS (Rec: 07/19/22 11:45 KS [id number]) Physical Therapy Treatment Exercises Exercises Ankle Pumps,Gluteal Sets,Quad Sets,Heel Slides Education Education Provided Precautions,Weight Bearing Status,Post-Op Packet,Safety M7 PT-IP Assessment and Plan Start: 07/18/22 11:40 Freq: NEEDED Status: Discharge Protocol: Document 07/19/22 09:55 KS (Rec: 07/19/22 11:45 KS [id number]) PT Summary Assessment and Plan Potential Rehabilitation Potential Excellent Summary Impairments Pain,ROM,Strength,Balance,Bed Mobility,Transfers,Gait Progress Towards Goals Progressing Toward Goals Assessment Summary Pt progressing well and only requires SBA. DIL confirms she will be able to provide assistance at home, she is also a PT. She has cleared stair training and feels eager to go home. Goals Bed Mobility Goal Independent Transfer Goal Independent,Front Wheeled Walker Gait Goal Independent,Front Wheel Walker Gait Distance 100 Other Goals Patient will be able to ascend /descend 2 stairs without rail with LRAD and CGA. Days to Meet Goals 3 Frequency of Treatment Frequency Of Treatment Twice a Day Treatment Plan Physical Therapy Treatment Plan Bed Mobility Training,Transfer Training,Gait Training, Therapeutic Exercise,Post Op Education,Discharge Planning, Hot or Cold Pack,Manual Therapy Other Recommendations and Next Treatment monitor VSS during session Focus amb as cristal without AD climb 1 step without railing Precautions Anterior Hip Precautions No Hip Extension,No Hip External Rotation Weight Bearing Status Weight Bearing Status Weight Bear as Tolerated Recommendations To Nursing Amount of Assist Needed Standby Assistance Discharge Recommendations PT Discharge Recommendations Home with Assistance Transportation Needs at Discharge Private Vehicle
--- NOTE | 2022-07-19 12:57 | CM.DANOTE ---
Initial DCP Assessment Note Pt is a 81 yo female, resident of [place], now POD#2 from rt ALBINA PCP: Rosio Puckett Payer:TERENCE/[employer]phon Patient planned for discharge home w/step dtr to assist until sister can visit to help out. Patient lives alone, indp and active at baseline. Patient's post operative course complicated a bit by afib w/consult from medicine, patient encouraged to follow up w/instrumentation and controls technician Patient's spirits are high, daughter transporting home today, patient eager to return home and therapies have cleared patient for this plan No needs from this CM team identified, outpatient PT BEKA Vila Discharge Planning/Care Management CM Discharge Assessment Start: 07/19/22 12:54 Freq: Status: Discharge Protocol: Document 07/19/22 12:54 BEST (Rec: 07/19/22 12:57 BEST [id number]) Discharge Planning Assessment Assigned Manager [employer] BEKA Riley DPOA/Assigned Designee Name Brittanie (sister) [phone] or [phone] Contact Information Good Hale (brother) [phone] Advance Directives? Yes Advance Directives on File No History Provided By Patient,Medical Record Prior Living Arrangements House Household Members none Type of transporation used prior to Drives own vehicle admit Independent with ADL's Yes Is patient alert and oriented? Yes Barriers to Discharge No Discharge Plan Home Transportation Arrangement Step Dtr Referrals Initiated None needed
== END 2022-07-19 11:00 | disposition home or self-care (01) | DRG 982 ==
LOC: OR 07-18 11:50 → AC 07-18 11:50
PROVIDERS: Student in an Organized Health Care Education/Training Program; Admitting Provider Orthopaedic Surgery; PCP Family Medicine; Referring Provider Orthopaedic Surgery; Visit Provider Orthopaedic Surgery
PROC: 0SR902A Replacement of Right Hip Joint with Metal on Polyethylene Synthetic Substitute, Uncemented, Open Approach (ICD-10-PCS; CPT 27130; principal; 2022-07-17 13:45)
DX: I48.91 Unspecified atrial fibrillation (principal); J90 Pleural effusion, not elsewhere classified; M16.11 Unilateral primary osteoarthritis, right hip; I16.0 Hypertensive urgency; I10 Essential (primary) hypertension; Z79.01 Long term (current) use of anticoagulants; Z85.118 Personal history of other malignant neoplasm of bronchus and lung; Z87.891 Personal history of nicotine dependence
CPT/HCPCS: 36415; 71045; 73502; 76000; 80048; 80053; 81001; 83735; 84443; 85025; 85610; 87635; 93005; 93306; 94640; 94762; 97116; 97161; 97530; C1776; C9803; C9290; J0171; J0690; J1100; J1170; J1940; J2405; J2704; J3010; J3475

== ENCOUNTER → 2022-09-17 18:07 | Outpatient (CLI) | payer MEDICARE, OTHER, SELFPAY ==
[2022-07-17 11:45] VITALS: BMI 19.0
--- NOTE | 2022-09-17 18:09 | DI.RAD.S_ITS ---
PROCEDURE: XR HIP W PEL IF DONE RT 2V INDICATIONS: acute R hip pain, prosthesis, new ambulation diff TECHNIQUE: AP pelvis with lateral view(s) of the right hip(s). COMPARISON: [facility], CR, XR HIP W PEL IF DONE RT 2V, 07/17/2022, 17:26. [facility], CR, XR HIP W PEL IF DONE RT 2V, 07/17/2022, 16:00. [facility], [place], CR, XR PELVIS WITH LATERAL HIP RIGHT, 07/31/2022, 16:48. FINDINGS: Bones: Scattered degenerative changes. Bilateral hip arthroplasties. Appearance is similar to prior. No displaced fracture or dislocation identified. Soft tissues: Heterotopic ossification and pelvic clips again seen. IMPRESSION: No acute radiographic changes compared to prior imaging. If there is high concern for further derangement, consider cross-sectional imaging or bone scan. Dictated by: Bryan Campbell M.D. on 09/17/2022 at 19:23 Approved by: Bryan Campbell M.D. on 09/17/2022 at 19:25
== END ==
PROVIDERS: PCP Family Medicine; Referring Provider Student in an Organized Health Care Education/Training Program; Visit Provider Student in an Organized Health Care Education/Training Program
DX: M25.551 Pain in right hip (principal); Z96.643 Presence of artificial hip joint, bilateral
CPT/HCPCS: 73502

== ENCOUNTER → 2022-11-26 12:46 | Outpatient (CLI) | payer MEDICARE, OTHER, SELFPAY ==
[2022-07-17 11:45] VITALS: BMI 19.0
[2022-11-26 13:37] LABS: Add Manual Diff / Slide Review NO; Basophils Absolute Auto 0 /uL (0-100); Basophils Percent Auto 0.5 % (0-2); Eosinophils Absolute Auto 0 /uL (0-450); Eosinophils Percent Auto 0.8 % (2-4); Hematocrit 39.4 % (36-46); Hemoglobin 12.9 g/dL (12.0-16.0); Lymphocytes Absolute Auto 1200 /uL (1100-4500); Lymphocytes Percent Auto 23.4 % (25-40); Mean Corpuscular HGB Conc 32.7 % (30-36); Mean Corpuscular Hemoglobin 28.5 PG (26-34); Mean Corpuscular Volume 87.3 fL (80-100); Monocytes Absolute Auto 600 /uL (0-900); Monocytes Percent Auto 11.6 % (3-14); Neutrophils Absolute Auto 3200 /uL (1500-7000); Neutrophils Percent Auto 63.7 % (50-75); Platelet Count 234 X10^3/uL (150-400); Red Blood Cell Count 4.52 X10^6/uL (4.0-5.2); Red Cell Distribution Width 15.8 % (11.6-14.8); White Blood Cell Count 4.9 X10^3/uL (4.5-11.0)
[2022-11-26 13:48] LABS: INR 2.7 (0.9-1.3); Prothrombin Time 31.3 SECONDS (10.1-12.7)
[2022-11-26 13:51] LABS: PTT Partial Thromboplastin Tim 49 SECONDS (26-36)
== END ==
PROVIDERS: PCP Family Medicine; Referring Provider Orthopaedic Surgery; Visit Provider Orthopaedic Surgery
DX: Z51.81 Encounter for therapeutic drug level monitoring (principal); Z01.812 Encounter for preprocedural laboratory examination
CPT/HCPCS: 36415; 85025; 85610; 85730

== ENCOUNTER → 2022-12-11 10:53 | Outpatient (CLI) | payer MEDICARE, OTHER, SELFPAY ==
[2022-07-17 11:45] VITALS: BMI 19.0
[2022-12-11 12:13] LABS: Alanine Aminotransferase 17 IU/L (<35); Albumin 3.8 g/dL (3.5-5.0); Albumin Globulin Ratio 1.4 (1.0-2.8); Alkaline Phosphatase 62 U/L (38-126); Aspartate Aminotransferase 24 IU/L (14-36); BUN Creatinine Ratio 27.4 (6-22); Bilirubin Total 0.8 mg/dL (0.2-1.3); Blood Urea Nitrogen 17 mg/dL (7-17); Calcium 9.7 mg/dL (8.4-10.2); Carbon Dioxide 33 mmol/L (22-32); Chloride 97 mmol/L (98-107); Estimated Glomerular Filt Rate > 60 mL/min (>60); Globulin 2.7 g/dL (1.7-4.1); Glucose 92 mg/dL (80-110); HEMOLYSIS < 15 (0-50); Potassium 4.2 mmol/L (3.4-5.1); Sodium 137 mmol/L (137-145); Total Protein 6.5 g/dL (6.3-8.2)
== END ==
PROVIDERS: PCP Family Medicine; Referring Provider Internal Medicine Cardiovascular Disease; Visit Provider Internal Medicine Cardiovascular Disease
DX: I48.0 Paroxysmal atrial fibrillation (principal); N39.0 Urinary tract infection, site not specified
CPT/HCPCS: 36415; 80053; 87077; 87086; 87186

== ENCOUNTER → 2022-12-20 09:51 | Outpatient (CLI) | payer MEDICARE, OTHER, SELFPAY ==
[2022-07-17 11:45] VITALS: BMI 19.0
--- NOTE | 2022-12-20 09:53 | DI.RAD.S_ITS ---
Bone Density Report Name: ELIUD BENDER Age: 82 Sex: Female Ethnicity: White Date of : 1940 Indication: postmenopausal; screening for osteoporosis; Referring Provider: CASIE KNAPP Study: Bone densitometry was performed. Exam Date: December 20, 2022 Accession number: [id number] Bone Density: Region BMD T-score Z-score Classification Total Forearm (Left) 0.400 -3.3 0.1 Osteoporosis 1/3 Forearm (Left) 0.442 -4.2 -0.7 Osteoporosis UD Forearm (Left) 0.320 -2.1 0.4 Osteopenia World Health Organization criteria for BMD impression classify patients as: Normal (T-score at or above -1.0), Osteopenia (T-score between -1.0 and -2.5), or Osteoporosis (T-score at or below -2.5). Impression: The patient has osteoporosis, based on the Left Third Radius T-score. Discussion: INCREASED RISK OF FRACTURE. BONE DENSITY IS UNDESIRABLY LOW AT ONE OR MORE SKELETAL SITES, CONSISTENT WITH POSTMENOPAUSAL OSTEOPOROSIS. This patient's lowest T-score meets the World Health Organization's (WHO) criteria for osteoporosis at one or more sites (T-score -2.5 or below). In untreated patients, the risk of osteoporotic fracture increases approximately two-fold for each 1.0 SD decrease in T-score. Low bone density is not the only risk factor for fracture; also consider factors such as patient's age, frailty or poor health, risk of falling, risk of injury, previous osteoporotic fracture, family history of osteoporosis, cigarette smoking, low body weight, etc. Not everyone with low bone mineral density has osteoporosis; osteomalacia and other metabolic bone disorders should also be considered. Patients who have osteoporosis should be evaluated for specific diseases and conditions (secondary causes) that may cause or contribute to bone loss. The [place] [employer] Endocrinologists (AACE) and National Osteoporosis Foundation (NOF) recommend pharmacologic intervention for all postmenopausal women whose T-score is in this range. The patient should follow a healthful lifestyle (good nutrition with adequate calcium and vitamin D, and appropriate weight-bearing exercise). Follow-Up: Consider a repeat BMD and Vertebral Fracture Assessment (VFA) exam in 2 years or sooner if medically necessary, to reassess this patient's status. Reported by: LAZARA FERRERA M.D. on 12/20/2022 10:16:00 AM.
== END ==
PROVIDERS: PCP Family Medicine; Referring Provider Family Medicine; Visit Provider Family Medicine
DX: M81.0 Age-related osteoporosis without current pathological fracture (principal); N95.1 Menopausal and female climacteric states; M85.832 Other specified disorders of bone density and structure, left forearm
CPT/HCPCS: 77081

== ENCOUNTER → 2022-12-31 08:07 | Outpatient (CLI) | payer MEDICARE, OTHER, SELFPAY ==
[2022-07-17 11:45] VITALS: BMI 19.0
--- NOTE | 2022-12-31 | DI.ECHO.S_ITS ---
[place] [facility] +---------+ : : [address] : : : : [id number] : : : : Phone: [phone]---------+ Echocardiogram Report + + :Name: ELIUD BENDER Study Date: 12/31/2022 Height: 59 in : :[facility] ReadingLocation: Weight: 97 lb : : Gender: Female BSA: 1.4 m2 : :: 1940 Age: 82 yrs BP: 177/105 mmHg: :Reason For Study: Atrial Fibrillation : :Ordering Physician: Izabel DE SANTIAGOformed By: Trina Purcell : :Referring: JULIET DE SANTIAGO : + + Interpretation Summary The study quality was technically difficult. The ejection fraction is estimated to be 60-65%. There are no obvious focal wall motion abnormalities noted but poor endocardial definition reduces the sensitivity for the detection of such. There is mild tricuspid regurgitation. PAP not well estimated Procedure: A two-dimensional transthoracic echocardiogram with color flow and Doppler was performed. The study quality was technically difficult. Most of the acoustic windows were suboptimal, but the best imaging was obtained from the subcostal window. Comparison is made with the echocardiogram of 07/18/2022. The patient was in atrial fibrillation with heart rates between 57-118 bpm during the exam. Left Ventricle: The left ventricle is normal in size. The ejection fraction is estimated to be 60-65%. There are no obvious focal wall motion abnormalities noted but poor endocardial definition reduces the sensitivity for the detection of such. Diastolic parameters suggest a relaxation abnormality of the left ventricle, consistent with probable normal filling pressures. Right Ventricle: The right ventricle is normal size. Atria: The left atrium grossly appears normal in size. The right atrium grossly appears normal in size. There is no Doppler evidence for an interatrial shunt. Mitral Valve: The mitral valve is normal. There is mild mitral annular calcification. There is no mitral valve stenosis. There is trace mitral regurgitation. Aortic Valve: The aortic valve is not well visualized. There is no aortic valve stenosis. There is trace aortic regurgitation. Tricuspid Valve: The tricuspid valve is normal. There is mild tricuspid regurgitation. Pulmonic Valve: The pulmonic valve is not well visualized. Great Vessels: The aortic root is not well visualized. The ascending aorta could not be visualized. The aortic arch could not be visualized. The pulmonary is not well visualized. The IVC is of normal diameter and collapses greater than 50% with a sniff. This suggests a low right atrial pressure of 3 mm Hg. Pericardium/ Pleura There is no pericardial effusion. Doppler Measurements & Calculations Ao V2 max: 119.0 cm/sec LVOT Max Kaiden: 47.7 cm/sec Ao V2 mean: 84.5 cm/sec LV V1 max P.91 mmHg Ao max P.0 mmHg LV V1 VTI: 10.9 cm Ao mean P.0 mmHg sev ratio: 0.57 Ao V2 VTI: 19.1 cm TR max kaiden: 221.5 cm/sec AV VR_phl: 0.40 TR max P.6 mmHg Reading Physician:11:30 AM
== END ==
PROVIDERS: PCP Family Medicine; Referring Provider Internal Medicine Cardiovascular Disease; Visit Provider Internal Medicine Cardiovascular Disease
DX: I08.1 Rheumatic disorders of both mitral and tricuspid valves (principal); I48.0 Paroxysmal atrial fibrillation
CPT/HCPCS: 93306

== ENCOUNTER 2023-01-09 07:34 | Day surgery (SDC) | payer MEDICARE, OTHER, SELFPAY ==
[2022-07-17 11:45] VITALS: BMI 19.0
[2023-01-02 13:57] VITALS: BMI 20.4
[2023-01-09] VITALS (14 sets, daily range): BP systolic 120–186; BP diastolic 51–98; PULSE 67–95; RESP 15–26; TEMP 36.2–37.1; O2SAT 91–99; BMI 19.4
--- NOTE | 2023-01-09 06:00 | DI.RAD.S_ITS ---
PROCEDURE: XR KNEE LT 1TO2V INDICATIONS: TKA TECHNIQUE: 2 view(s) of the knee acquired. COMPARISON: [facility], , XR KNEE LT 3V, 08/29/2020, 13:22. FINDINGS: Bones: Patient is status post knee joint arthroplasty. Hardware components are in expected positions. Visualized bony structures are intact. Soft tissues: Overlying postoperative changes are noted. IMPRESSION: Postoperative changes of total right knee replacement without complication. Dictated by: Beni Cobos M.D. on 01/09/2023 at 11:51 Approved by: Beni Cobos M.D. on 01/09/2023 at 11:52
[2023-01-09] MEDS: VANCOMYCIN 1,000 MG/200 ML PIGGYBACK 200 MG IV (08:03)
[2023-01-09] MEDS: LACTATED RINGERS 1,000 ML 42 ML IV (08:09)
--- NOTE | 2023-01-09 08:17 | PM.PREOP ---
Pre-operative Note Interval Note History & Physical reviewed/Exam performed by Physician: Yes Changes to H&P: No
--- NOTE | 2023-01-09 08:17 | PM.OP.1 ---
Operative Date/Time/Diagnoses Date of procedure: 01/09/23 Time of procedure: 08:00 Pre-op diagnosis: Left knee OA Post-op diagnosis: same Procedure & Clinicians Procedure: Left total knee arthroplasty Same procedure as scheduled: Yes Indications: The patient has had progressively worsening left knee pain with radiographic changes consistent with arthritis. Non-operative management has failed and the patient has requested total knee replacement. The risks, benefits and alternatives to surgery were discussed with the patient prior to proceeding. Risks discussed included, but were not limited to, failure to relieve pain, stiffness, infection, nerve damage, deep venous thrombosis, pulmonary embolism, stroke, coma, heart attack, permanent paralysis and , as well as the potential need for eventual revision of the prosthetic. Surgeon: Kymberly Hough Electrical High Tension Tester: Matt Pastrana Anesthesia Type: General and Peripheral nerve block Operative Notes Findings: Severe left knee osteoarthritis, acceptable alignment, adequate bone Closure Type: primary Specimen(s): none sent Prosthetic devices, grafts, tissues, transplants, or devices: Hough and nephew lynneney BCS 2 size 3 tibia, size 4 femur, +9 poly, 35 x 7 0.5 mm patella Estimated Blood Loss (mL): 250 Blood products transfused: none Tourniquet time (min): 74 Procedure in detail: The patient was seen in the pre-operative area, where the patient identified the right knee as the operative site and this was marked with my initials. The patient received pre-operative antibiotics, and was taken to the operating room and placed on the operative table in the supine position. After satisfactory anesthesia, a multimedia producer out was performed. The left leg was encircled with a tourniquet about the proximal thigh, and the leg was prepared from the toes to the tourniquet with ChloroPrep in the usual fashion and draped through sterile drapes. The leg was elevated and exsanguinated with Eschmark bandage and the tourniquet inflated to [250] mmHg pressure. The knee was approached through an approximately 18 cm incision centered over the patella and carried into the knee through a medial parapatellar arthrotomy. A portion of the medial and lateral meniscus was resected. Soft tissue was carefully mobilized around the patella the patella was measured with a caliper. Bone was resected from the patella and the patellar height was reconstituted with up an appropriate sized patellar component. A cover was then placed on the patella. A small amount of additional medial and lateral meniscus was resected. The distal femur was cut at 5?. A [+2] cut was used. It looked like an appropriate distal femoral cut and the cut was made without difficulty. An extramedullary guide was used for the tibial cut. 10 mm was resected off the least affected side.The tibia was prepared. The rotation was assessed. The patient was placed in extension residual medial and lateral meniscus as well as any residual bone was carefully resected. [No] additional tibia was resected. Hemostasis was achieved especially posteriorly. Additional local was injected into the posterior capsule. The extension gap was assessed and additional releases for gap balancing were performed as necessary. It was checked with the gap bit tapper. The femoral component was trial was placed and the notch was finished. The rotation was assessed and the appropriate size femoral guide was placed on the distal femur and finishing cuts were made. There was no evidence of notching. The anterior, posterior and chamfer cuts were then made. The posterior osteophytes and soft tissues were then removed. The posterior capsule was injected with part of a mixture of 60 ml 0.25% Marcaine mixed with 20 ml Exparel for post operative pain control. The remainder of this mixture was injected into the capsule and subcutaneous tissues during cement curing.The tibial and femoral components were then placed and the knee placed through a range of motion. Range of motion was [0-130], with good stability throughout the range. The trials were then removed, and the tibia was finished. The bone was prepared with pulsatile lavage, and dried with a sponge. Cement was applied and the final prosthetics placed. Excess cement was removed during and after cement curing. A brief Betadine soak was performed. After confirming there was no extruded cement posteriorly, the final tibial insert was placed. The knee was copiously irrigated and the tourniquet deflated. Hemostasis was obtained with Bovie cautery. The capsule was closed with interrupted nonabsorbable suture. The subcutaneous layer was closed with barbed sutures, and the skin with a running 3-0 V-Lock suture and Surgical glue. An Aquacel Ag dressing was applied and the patient was taken to recovery having tolerated the procedure well. Complications: none Post-operative Condition: stable Disposition: Acute Care Plan for aftercare: The patient will be maintained on a standard total knee replacement protocol with weight bearing as tolerated. The patient will receive Coumadin and sequential compression devices for DVT prophylaxis. The patient will be discharged home when safe for the home environment.
[2023-01-09] MEDS: CELECOXIB 200 MG CAPSULE PO (08:25)
[2023-01-09] MEDS: ACETAMINOPHEN 325 MG TABLET 975 MG PO (08:25)
--- NOTE | 2023-01-09 08:41 | SUR.PREOP ---
Block start time 08 with a time out. Monitoring initiated and maintained throughout procedure. Oxygen and medications given per anesthesiologist instructions. Patient remained stable throughout procedure, no adverse reactions noted. Block end time 0835.
[2023-01-09] MEDS: CEFAZOLIN 2 GM/100 ML PREMIX 100 ML IV ×2 (08:52→17:30)
--- NOTE | 2023-01-09 09:31 | SUR.OPER ---
Supine on padded OR bed. Pillow under head, arms secured on padded armboards <90 degree abduction. Safety belt across torso. Non-operative leg secured with tape over blanket over lower leg. Operative leg secured in DeMayo positioner. Foam padded brace at thigh of operative leg.
[2023-01-09] MEDS: BUPIVACAINE LIPOSOME 266 MG/20 ML VIAL INJ (09:56)
[2023-01-09] MEDS: TRANEXAMIC ACID 1,000 MG VIAL 1000 MG INJ ×2 (09:57→10:42)
[2023-01-09] MEDS: OXYCODONE IR 5 MG TABLET PO (11:36)
--- NOTE | 2023-01-09 11:49 | SUR.PHASEI ---
Report called to ASHLEIGH Eugene.
--- NOTE | 2023-01-09 12:07 | SUR.PHASEI ---
Patient transferred to the floor with her belongings bag. VS stable, except O2 sat was 88-91% RA. Sats 95% on 1L O2 NC. Left knee dressing CDI. Bedside report given to Valorie.
[2023-01-09] MEDS: LACTATED RINGERS 1,000 ML 100 ML IV ×2 (13:08→22:43)
--- NOTE | 2023-01-09 14:35 | PT.IIE ---
Current Diagnoses Unilateral primary osteoarthritis, left knee (01/09/23) Surgery Performed Operation Date: 01/09/23 08:45 Actual Procedures p Total Knee Arthroplasty(Left) - Kymberly Hough MD Surgical History (Last Reviewed 09/17/22 @ 18:06 by Michelle Calderon PA-C) Anesthesia History of bilateral salpingo-oophorectomy (BSO) History of breast augmentation (1992) History of hip replacement (01/2013) History of oophorectomy (1994) History of pneumonectomy (05/23/08) Status post hysterectomy (1994) Medical History (Last Reviewed 09/17/22 @ 18:06 by Michelle Calderon PA-C) Anticoagulation goal of INR 2.0 to 2.5 Atrial fibrillation (2013) Atrial fibrillation with RVR COPD (chronic obstructive pulmonary disease) Easy bruisability History of cardioversion Hypertension Lung cancer (2006) Osteoarthritis Osteoporosis (2015) Ovarian cancer (1994) Raynauds syndrome (12/14/10) Uterine cancer (1994) Physical Therapy Inpatient Evaluation/Re-Eval M1 PT/OT-IP Prior Functional Status Start: 01/09/23 15:46 Freq: NEEDED Status: Active Protocol: Document 01/09/23 14:35 AB (Rec: 01/09/23 15:56 AB [id number]) Medical Review Prior Functional Status Medical History Reviewed Yes Communication able to make needs known Mobility and Gait pt stated that she was independent with all mobilities and ambulation without AD Social History Household Members none Living Arrangements House Number of Floors (Floors) Two Floors Number of Stairs To Enter/Railing? pt stays on main level of the house has 2 steps with bilateral wide rails (can only hold on to 1 rail at a time) to enter the house Home Environment Standard Height Toilet,Walk in Shower Home Equipment Front Wheel Walker,Straight Cane,Raised Toilet Seat w/ Armrests,Shower Seat without Backrest,Hand Held Shower,Grab Bars In Shower Additional Social History Comment Pt will have her step daughter to assist her on the first 2 weeks and then her sister will be with her afterwards. pt's step daughter is a PT M2 PT-IP Current Condition Start: 01/09/23 15:46 Freq: NEEDED Status: Active Protocol: Document 01/09/23 14:35 AB (Rec: 01/09/23 15:56 AB [id number]) Physical Therapy Current Condition Current Condition Evaluation Date 01/09/23 Treatment Diagnosis s/p L TKA; difficulty in walkin Onset Date 01/09/23 M3 PT-IP Subjective Start: 01/09/23 15:46 Freq: NEEDED Status: Active Protocol: Document 01/09/23 14:35 AB (Rec: 01/09/23 15:56 AB [id number]) Subjective Physical Therapy Visit Type Type Initial Evaluation Visit Start Time 14:35 Visit Stop Time 15:40 Total Visit Minutes 55 Number of TANK STAVE ASSEMBLER Visits 0 Physical Therapy Visit Comments Patient Comments agreeable to do PT Therapy Pain Assessment Pain When Pain Assessed At Rest Pain Present Pain Present Pain Reported Location Left knee Intensity 2 Scale Used Numeric (0 - 10) Pain Management Techniques Apply Cold,Distraction, Elevation,Modification of Treatment,Re-positioning, Timing of Activity with Medications M4 PT-IP Mobility and Gait Start: 01/09/23 15:46 Freq: NEEDED Status: Active Protocol: Document 01/09/23 14:35 AB (Rec: 01/09/23 15:56 AB [id number]) PT-Bed Mobility Assessment Supine to Sit Supine to Sit Standby Assistance PT-Transfer Assessment Sit to and From Stand Sit to and from Stand Contact Guard Assistance,1 Person Assistance,Use of Upper Extremities Equipment Transfer Assistive Device Gait Belt,Front Wheeled Walker Orthotic/Prosthetic Devices or Brace: No Transfers Transfer Destination Toilet Transfer Technique ambulated Transfer Ability Level of Assist Contact Guard Assistance,1 Person Assistance,Use of Upper Extremities Comments Mobility Comments pt supine in bed. Step daughter in room with pt. BP in supine: 124/66 O2 sat at room air 96% and VT 66 pt completed supine to sit SBA . able to sit on EOB SBA. completed sit to stand CGA and ambulated in room using FWW ~ 60 ft CGA. pt requested to use the toilet. pt ambulated to the toilet using FWW CGA. completed toileting needing assistance with brief management. pt completed sit to stand from the toilet using grab bar CGA and ambulated towards the sink using FWW CGA . pt able to maintain standing leaning against the counter SBA to CGA while completing handwashing. pt ambulated to the chair using FWW CGA. positioned pt on the chair. call light and table placed within reach. Left pt with daughter in room. post-op folder provided to pt and reviewed contents and HEP. caregiver training set up for tomorrow at 9 am. Gait Assessment Gait Gait Assistance Required: Contact Guard Assist Distance (Feet) 60 Able to Maintain Weight Bearing Status Yes During Gait Assistive Devices Assistive Device Gait Belt,Front Wheeled Walker Orthotic/Prosthetic Devices or Brace: No Gait Deviations General Gait Pattern Antalgic,Decreased Stride Length,Decreased Feet Clearance,Step-to Gait Factors Limiting Gait Function Factors Limiting Gait Function Decreased Activity Tolerance, Limited Range of Motion,Pain, Poor Balance,Poor Safety Awareness PT-Balance Assessment Sitting Balance and Reactions Static Sitting Balance Ability Normal Dynamic Sitting Balance Ability Good Standing Balance and Reactions Static Standing Balance Ability Fair Dynamic Standing Balance Ability Fair Device Used FWW M5 PT-IP Objective Assessments Start: 01/09/23 15:46 Freq: NEEDED Status: Active Protocol: Document 01/09/23 14:35 AB (Rec: 01/09/23 15:56 AB [id number]) Orientation Orientation/Cognition Level of Alertness Alert Orientation Name,Place,Situation Language Function Ability No Deficits Noted Safety Awareness Decreased Safety Awareness Memory Description No Deficits Noted Gross Range of Motion Lower Extremity ROM Assessment Left Impaired Impairments L knee flexion: ~ 90 deg Strength Lower Extremity Strength Assessment Left Impaired Hip 4/5 Knee 4-/5 Coordination Assessment Gross Coordination Gross Coordination WNL Sensation Assessment Sensation Gross Sensation WNL Muscle Tone Muscle Tone WNL Yes M6 PT-IP Treatment Start: 01/09/23 15:46 Freq: NEEDED Status: Active Protocol: Document 01/09/23 14:35 AB (Rec: 01/09/23 15:56 AB [email or web address]) Physical Therapy Treatment Education Education Provided Precautions,Weight Bearing Status,Post-Op Packet,Safety M7 PT-IP Assessment and Plan Start: 01/09/23 15:46 Freq: NEEDED Status: Active Protocol: Document 01/09/23 14:35 AB (Rec: 01/09/23 15:56 AB [email or web address]) PT Summary Assessment and Plan Potential Rehabilitation Potential Good Status of Condition at Evaluation Stable Summary Impairments Pain,ROM,Strength,Balance, Coordination,Sensation,Tone, Cognition,Bed Mobility, Transfers,Gait,Activity Tolerance Assessment Summary pt is an 82 y/o F s/p L TKA POD 0 and is WBAT. pt requiring CGA with mobility using FWW and plans to go home with her daughter to assist her. Caregiver training set up for tomorrow at 9 am. will continue to assess progress. Goals Bed Mobility Goal Independent Transfer Goal Independent,Front Wheeled Walker Gait Goal Independent,Front Wheel Walker Gait Distance 200 Other Goals improve transfers and ambulation using LRAD 300 ft SBA up/down 2 steps 1 rail SBA Days to Meet Goals 5 Frequency of Treatment Frequency Of Treatment Twice a Day Treatment Plan Physical Therapy Treatment Plan Bed Mobility Training,Transfer Training,Gait Training, Therapeutic Exercise,Balance Retraining,Post Op Education, Discharge Planning,Hot or Cold Pack,Neuromuscular Re-ed, Coordination Retraining,Manual Therapy Weight Bearing Status Weight Bearing Status Weight Bear as Tolerated Allowed Weight Bearing Amount (enter % LLE WBAT or #) (%) Recommendations To Nursing Amount of Assist Needed 1 Person Assist Discharge Recommendations PT Discharge Recommendations Home with Assistance, Outpatient PT Transportation Needs at Discharge Private Vehicle
--- NOTE | 2023-01-09 16:15 | OT.IP.EVAL ---
Current Diagnoses Unilateral primary osteoarthritis, left knee (01/09/23) Surgery Performed Operation Date: 01/09/23 08:45 Actual Procedures p Total Knee Arthroplasty(Left) - Kymberly Hough MD Past Medical History (Last Reviewed 09/17/22 @ 18:06 by Michelle Calderon PA-C) Anticoagulation goal of INR 2.0 to 2.5 Atrial fibrillation (2013) Atrial fibrillation with RVR COPD (chronic obstructive pulmonary disease) Easy bruisability History of cardioversion Hypertension Lung cancer (2006) Osteoarthritis Osteoporosis (2015) Ovarian cancer (1994) Raynauds syndrome (12/14/10) Uterine cancer (1994) Surgical History (Last Reviewed 09/17/22 @ 18:06 by Michelle Calderon PA-C) Anesthesia History of bilateral salpingo-oophorectomy (BSO) History of breast augmentation (1992) History of hip replacement (01/2013) History of oophorectomy (1994) History of pneumonectomy (05/23/08) Status post hysterectomy (1994) Occupational Therapy Inpatient Evaluation/Re-Eval M1 PT/OT-IP Prior Functional Status Start: 01/09/23 16:50 Freq: NEEDED Status: Active Protocol: Document 01/09/23 16:15 [facility] (Rec: 01/09/23 17:05 [facility] [id number]) Medical Review Prior Functional Status Medical History Reviewed Yes Communication able to make needs known Mobility and Gait pt stated that she was independent with all mobilities and ambulation without AD Activities of Daily Living and IADL's Pt states has a long handled shoe horn she uses and sock aid to assist with stockings. Otherwise pt is independent with her needs. Social History Household Members none Living Arrangements House Number of Floors (Floors) Two Floors Number of Stairs To Enter/Railing? pt stays on main level of the house has 2 steps with bilateral wide rails (can only hold on to 1 rail at a time) to enter the house Home Environment Standard Height Toilet,Walk in Shower Home Equipment Front Wheel Walker,Straight Cane,Raised Toilet Seat w/ Armrests,Shower Seat without Backrest,Hand Held Shower,Grab Bars In Shower Additional Social History Comment Pt will have her step daughter to assist her on the first 2 weeks and then her sister will be with her afterwards. pt's step daughter is a PT M2 OT-IP Current Condition Start: 01/09/23 16:50 Freq: Status: Active Protocol: Document 01/09/23 16:15 [facility] (Rec: 01/09/23 17:05 [facility] [id number]) Occupational Therapy Current Condition Current Condition Evaluation Date 01/09/23 Treatment Diagnosis S/P L TKA Diagnosis Onset Date M3 OT- IP Subjective and Pain Start: 01/09/23 16:50 Freq: Status: Active Protocol: Document 01/09/23 16:15 [facility] (Rec: 01/09/23 17:05 [facility] [id number]) OT- Subjective Occupational Therapy Visit Type Type Initial Evaluation Visit Start Time 16:15 Visit Stop Time 16:40 Total Visit Minutes 25 Occupational Therapy Visit Comments Patient Comments Pt agreed to get up to brush her teeth and use the bathroom . Pt's step daughter in the room. Patient/Caregiver Goals To go home. OT Pain Assessment Pain When Pain Assessed At Rest Pain Present Pain Present Denied Pain M4 OT- IP ADL's Start: 01/09/23 16:50 Freq: Status: Active Protocol: Document 01/09/23 16:15 [facility] (Rec: 01/09/23 17:05 [facility] [id number]) OT [id number] General Evaluation Self-Feeding Ability Independent Areas Needing Assistance Opening Containers OT ADL-Grooming General Evaluation Grooming Ability Independent Areas Needing Assistance Retrieving/Set-up of Grooming Items OT ADL-Oral Care General Eval Oral Care Ability Independent OT ADL-Dressing General Eval Lower Body Dressing Ability Standby Assistance Comments OT Dressing Comments Pt able to bend over comfortably to sabrina/doff her socks at this time. Educated best to dress her left leg first and take out last. OT ADL-Toileting General Evaluation Toileting Ability Standby Assistance Comments OT Toileting Comments SBA for safety while pt able to use the toilet and wipe on her own. Suggested use of wet ones and to wears pads/brief at night. OT ADL-Bathing Comments OT Bathing Comments Pt states to shower at home. Suggested if need able to use the FWW to get into the shower for safety. Best to try at home before showering for best way to get into and out of the shower. Pt states has suctions cups grab bar she uses to get into and out of the shower. Her step daughter to assist her at home. M5 OT- IP IADL's Start: 01/09/23 16:50 Freq: Status: Active Protocol: Document 01/09/23 16:15 [facility] (Rec: 01/09/23 17:05 [facility] [id number]) OT-Instrumental Activities of Daily Living Deficits IADL Deficits Identified Deficits Home Safety Awareness Awareness of Need for Assistance at Home Good Awareness Ability to Problem Solve Emergency Able to Problem Solve Situations Home Safety Comments Pt's step daughter to be at home to assist the pt for all needs as needed. Medication Management Medication Management No Deficits Identified Money Management Money Management No Deficits Identified Meal Preparation Meal Preparation Caregiver Provides Assist Sleeve Bottom Feller Sleeve Bottom Feller Caregiver Provides Assist M6 OT- IP Functional Cognition Start: 01/09/23 16:50 Freq: Status: Active Protocol: Document 01/09/23 16:15 [facility] (Rec: 01/09/23 17:05 [facility] [id number]) Cognitive Factors Limiting Selfcare Function Cognitive Ability Level of Alertness Alert Patient Orientation Name,Age,Birthday,Month,Date, Year,Day of Week,Place, Situation Attention Span Ability Capable of Focused Attention, Capable of Sustained Attention Ability to Follow Commands Able to Follow Multi-Step Commands Cognitive Comments Cognitive Assessment Comments Intact OT- Vision and Hearing OT- Hearing Assessment OT- Hearing Assessment WFL M7 OT- IP Mobility and Balance Start: 01/09/23 16:50 Freq: Status: Active Protocol: Document 01/09/23 16:15 [facility] (Rec: 01/09/23 17:05 [facility] [id number]) OT-Transfer Assessment Sit to and From Stand Sit to and from Stand Contact Guard Assistance Transfers Transfer Ability Standby Assistance Technique Transfer Destination Bed,Toilet Transfer Technique Stand Step Pivot Devices Transfer Assistive Devices Gait Belt,Front Wheeled Walker Comments Mobility Comments CGA to stand from the recliner and SBA after up on her feet and able to walk to the sink and bathroom and back to the recliner. OT- Balance Assessment Sitting Balance and Reactions Static Sitting Balance Ability Normal Dynamic Sitting Balance Ability Normal Standing Balance and Reactions Static Standing Balance Ability Good Dynamic Standing Balance Ability Good M8 OT- IP Objective Assessments Start: 01/09/23 16:50 Freq: Status: Active Protocol: Document 01/09/23 16:15 [facility] (Rec: 01/09/23 17:05 [facility] [id number]) OT Strength Comments Strength Comments WFl for age and lifestyle. OT- Coordination Assessment Comments Coordination Comments Arthritic changes in her hands and needing assist for set-up for oral care needs. M9 OT- IP Assessment and Plan Start: 01/09/23 16:50 Freq: Status: Active Protocol: Document 01/09/23 16:15 [facility] (Rec: 01/09/23 17:05 [facility] [id number]) OT Summary Assessment and Plan Potential Rehabilitation Potential Excellent Analytic Complexity at Evaluation Low Summary OT Impairments Pain,Strength,Balance, Functional Mobility,Dressing, Toileting,Bathing,Shower Transfers Progress Towards Goals Progressing Toward Goals Assessment Summary Pt low complexity and main barriers are steps and now will need assist for showering and use of equipment for LB dressing needs. Pt has a supportive step daughter, who is a PT to be staying with her to assist. Pt to go home with assist when medically stable and have outpt PT. Goals Dressing Goal Independent Toileting Goal Independent Bathing Goal Independent Toilet Transfer Goal Independent Shower Transfer Goal Independent Days to Meet Goals 5 Frequency of Treatment Frequency Of Treatment Once a Day Treatment Plan OT Treatment Plan ADL Training,Functional Mobility,Patient/Family Education,Discharge Planning Discharge Recommendations OT Discharge Recommendations Home with Assistance, Outpatient PT Transportation Needs at Discharge Private Vehicle
[2023-01-09] MEDS: WARFARIN 1 MG TABLET 2 MG PO (17:30)
[2023-01-09] MEDS: ACETAMINOPHEN 325 MG TABLET 650 MG PO (17:30)
[2023-01-09] MEDS: IPRATROPIUM 0.5 MG/2.5 ML NEB INH (17:48)
--- NOTE | 2023-01-09 18:56 | PC.NURSE ---
Day shift: Pt arrived to room 225 from PACU at approximately 1215. Pt used bedpan with assist. Vitals stable, O2 97% 2L NC. Pt up to bathroom with SBA and FWW and gaitbelt. Pt O2 96% on RA. Up with PT. Up with OT. Up with family member (who is a professional PT). Vitals stable, call light within reach, pt able to make needs known. Care ongoing.
[2023-01-09] MEDS: carvediloL 12.5 MG TABLET 6.25 MG PO (20:16)
[2023-01-09] MEDS: DOCUSATE 100 MG CAPSULE PO (20:16)
[2023-01-09] MEDS: FLECAINIDE 100 MG TABLET PO (20:16)
[2023-01-10] VITALS: BP 144/81; PULSE 102; RESP 17; TEMP 36.3; O2SAT 92
[2023-01-10] MEDS: ACETAMINOPHEN 325 MG TABLET 650 MG PO ×3 (00:35→11:49)
[2023-01-10] MEDS: CEFAZOLIN 2 GM/100 ML PREMIX 100 ML IV (01:49)
[2023-01-10 06:45] LABS: Hematocrit 30.7 % (36-46); Hemoglobin 10.3 g/dL (12.0-16.0)
[2023-01-10 06:52] LABS: INR 1.7 (0.9-1.3); Prothrombin Time 19.5 SECONDS (10.1-12.7)
[2023-01-10 07:54] VITALS: PULSE 88; RESP 24; O2SAT 94
[2023-01-10] MEDS: IPRATROPIUM 0.5 MG/2.5 ML NEB INH (07:54)
[2023-01-10 08:00] VITALS: BP 125/68; PULSE 68; RESP 16; TEMP 37.1; O2SAT 94
--- NOTE | 2023-01-10 09:00 | PT.IPTN ---
Current Diagnoses Unilateral primary osteoarthritis, left knee (01/09/23) Surgery Performed Operation Date: 01/09/23 08:45 Actual Procedures p Total Knee Arthroplasty(Left) - Kymberly Hough MD Physical Therapy Treatment Note M2 PT-IP Current Condition Start: 01/09/23 15:46 Freq: NEEDED Status: Active Protocol: Document 01/09/23 14:35 [facility] (Rec: 01/09/23 15:56 [facility] [id number]) Physical Therapy Current Condition Current Condition Evaluation Date 01/09/23 Treatment Diagnosis s/p L TKA; difficulty in walkin Onset Date 01/09/23 M3 PT-IP Subjective Start: 01/09/23 15:46 Freq: NEEDED Status: Active Protocol: Document 01/10/23 10:13 TS (Rec: 01/10/23 10:27 TS [id number]) Subjective Physical Therapy Visit Type Type Treatment Note Visit Start Time 09:00 Visit Stop Time 09:32 Total Visit Minutes 32 Number of UNIT TECHNICIAN Visits 1 Physical Therapy Visit Comments Patient Comments Pt found resting in chair, reports pain is 2/10, caregiver present for training . Therapy Pain Assessment Pain When Pain Assessed At Rest Pain Present Pain Present Pain Reported Location Left knee Intensity 2 Scale Used Numeric (0 - 10) Pain Management Techniques Apply Cold,Distraction, Elevation,Modification of Treatment,Re-positioning, Timing of Activity with Medications M4 PT-IP Mobility and Gait Start: 01/09/23 15:46 Freq: NEEDED Status: Active Protocol: Document 01/10/23 10:13 TS (Rec: 01/10/23 10:27 TS [id number]) PT-Transfer Assessment Sit to and From Stand Sit to and from Stand Standby Assistance,Use of Upper Extremities Equipment Transfer Assistive Device Gait Belt,Front Wheeled Walker Orthotic/Prosthetic Devices or Brace: No Comments Mobility Comments Pt found resting in chair, is agreeable to PT. Sit to stand with FWW SBA, has some slight retroleaning coming into standing. She ambulated ~500' close SBA with w/c trailing, she has an emerging step thru gait with quick pacing. She performed stairs with caregiver SBA/CGA for steps x3 , she has good dynamic balance with no buckling or LOB. She ambulated back to room, was left in chair with caregiver in room, all needs met. Gait Assessment Gait Gait Assistance Required: Standby Assistance,Contact Guard Assist Distance (Feet) 500 Able to Maintain Weight Bearing Status Yes During Gait Assistive Devices Assistive Device Gait Belt,Front Wheeled Walker Orthotic/Prosthetic Devices or Brace: No Gait Deviations General Gait Pattern Antalgic,Decreased Stride Length,Decreased Feet Clearance,Step-to Gait Factors Limiting Gait Function Factors Limiting Gait Function Decreased Activity Tolerance, Limited Range of Motion,Pain, Poor Balance,Poor Safety Awareness Comments Gait Comments See mobility comments. Stair Climbing Assessment Evaluation Level of Assist On Stairs Standby Assistance Devices Stair Climbing Assistive Devices Left Railing,Right Railing Technique/Endurance Stair Climbing Direction Ascend and Descend Stair Climbing Technique Step to Step Number of Steps Climbed 3 Comments Stair Climbing Comments See mobility comments PT-Balance Assessment Sitting Balance and Reactions Static Sitting Balance Ability Normal Dynamic Sitting Balance Ability Good Standing Balance and Reactions Static Standing Balance Ability Good Dynamic Standing Balance Ability Good Device Used FWW M5 PT-IP Objective Assessments Start: 01/09/23 15:46 Freq: NEEDED Status: Active Protocol: Document 01/09/23 14:35 [facility] (Rec: 01/09/23 15:56 [facility] [id number]) Orientation Orientation/Cognition Level of Alertness Alert Orientation Name,Place,Situation Language Function Ability No Deficits Noted Safety Awareness Decreased Safety Awareness Memory Description No Deficits Noted Gross Range of Motion Lower Extremity ROM Assessment Left Impaired Impairments L knee flexion: ~ 90 deg Strength Lower Extremity Strength Assessment Left Impaired Hip 4/5 Knee 4-/5 Coordination Assessment Gross Coordination Gross Coordination WNL Sensation Assessment Sensation Gross Sensation WNL Muscle Tone Muscle Tone WNL Yes M6 PT-IP Treatment Start: 01/09/23 15:46 Freq: NEEDED Status: Active Protocol: Document 01/10/23 10:13 TS (Rec: 01/10/23 10:27 TS [id number]) Physical Therapy Treatment Education Education Provided Precautions,Weight Bearing Status,Post-Op Packet,Safety M7 PT-IP Assessment and Plan Start: 01/09/23 15:46 Freq: NEEDED Status: Active Protocol: Document 01/10/23 10:13 TS (Rec: 01/10/23 10:27 TS [id number]) PT Summary Assessment and Plan Potential Rehabilitation Potential Good Summary Impairments Pain,ROM,Strength,Balance, Coordination,Sensation,Tone, Cognition,Bed Mobility, Transfers,Gait,Activity Tolerance Progress Towards Goals Progressing Toward Goals Assessment Summary Pat is making good progress with her mobility. She is SBA for sit to stand with FWW. She progressed her gait to ~500' SBA with emerging step thru gait and use of FWW. She performed stairs x3 step to step SBA/CGA with B handrails. PT is recommending pt return home with assist and outpatient therapy when ready. Goals Bed Mobility Goal Independent Transfer Goal Independent,Front Wheeled Walker Gait Goal Independent,Front Wheel Walker Gait Distance 200 Other Goals improve transfers and ambulation using LRAD 300 ft SBA up/down 2 steps 1 rail SBA Days to Meet Goals 5 Frequency of Treatment Frequency Of Treatment Twice a Day Treatment Plan Physical Therapy Treatment Plan Bed Mobility Training,Transfer Training,Gait Training, Therapeutic Exercise,Balance Retraining,Post Op Education, Discharge Planning,Hot or Cold Pack,Neuromuscular Re-ed, Coordination Retraining,Manual Therapy Weight Bearing Status Weight Bearing Status Weight Bear as Tolerated Allowed Weight Bearing Amount (enter % LLE WBAT or #) (%) Recommendations To Nursing Amount of Assist Needed Standby Assistance Discharge Recommendations PT Discharge Recommendations Home with Assistance, Outpatient PT Transportation Needs at Discharge Private Vehicle
[2023-01-10 09:10] VITALS: BP 131/49; PULSE 83
[2023-01-10] MEDS: carvediloL 12.5 MG TABLET 6.25 MG PO (09:10)
[2023-01-10] MEDS: DOCUSATE 100 MG CAPSULE PO (09:10)
[2023-01-10] MEDS: AMLODIPINE 5 MG TABLET 2.5 MG PO (09:12)
[2023-01-10] MEDS: CHOLECALCIFEROL (VITAMIN D3) 1,000 UNIT TABLET 2000 UNIT PO (09:13)
[2023-01-10] MEDS: MULTIVITAMIN 1 TABLET 1 TAB PO (09:14)
[2023-01-10] MEDS: FLECAINIDE 100 MG TABLET PO (09:15)
[2023-01-10] MEDS: CHOLECALCIFEROL (VITAMIN D3) 400 UNIT TABLET PO (09:15)
[2023-01-10] MEDS: OXYCODONE IR 10 MG TABLET PO (09:16)
--- NOTE | 2023-01-10 11:02 | OT.IPNOTE ---
Pt has no OT needs and pt's step daughter independent to safely assist pt for all needs. Discharge from OT services.
--- NOTE | 2023-01-10 12:04 | PM.DS.1 ---
History of Present Illness History of Present Illness Chief complaint: Left TKA *OPB* Narrative: Cecille states she is feeling well and is ready to go home. She denies any fever or chills. Discharge Providers Provider Date of admission: 01/09/2023 Discharge Date: 01/10/23 Primary care physician: Rosio Puckett MD Consults: 01/09/23 06:00 Consult to Anesthesiology Routine Comment: Consulting Provider: Anesthesiologist Reason for consultation: Regional block for post operative pain control 01/09/23 12:10 Consult to Discharge Planning Routine Comment: Consult to Occupational Therapy Evaluate & Treat Comment: Physician Instructions: Evaluate and treat Consult to Physical Therapy Evaluate & Treat Comment: Physician Instructions: postop TKA protocol Discharge provider: Matt Pastrana PA-C Summary Hospital Course Discharge Diagnosis: Status Post Left total knee arthroplasty Hospital Course: Left total knee arthroplasty Same procedure as scheduled: Yes Indications: The patient has had progressively worsening left knee pain with radiographic changes consistent with arthritis. Non-operative management has failed and the patient has requested total knee replacement. The risks, benefits and alternatives to surgery were discussed with the patient prior to proceeding. Risks discussed included, but were not limited to, failure to relieve pain, stiffness, infection, nerve damage, deep venous thrombosis, pulmonary embolism, stroke, coma, heart attack, permanent paralysis and , as well as the potential need for eventual revision of the prosthetic. Surgeon: Kymberly Hough Roll Wrapper: Matt Pastrana Anesthesia Type: General and Peripheral nerve block Operative Notes Findings: Severe left knee osteoarthritis, acceptable alignment, adequate bone Closure Type: primary Specimen(s): none sent Prosthetic devices, grafts, tissues, transplants, or devices: Hough and nephew journey BCS 2 size 3 tibia, size 4 femur, +9 poly, 35 x 7 0.5 mm patella Estimated Blood Loss (mL): 250 Blood products transfused: none Tourniquet time (min): 74 Procedure in detail: The patient was seen in the pre-operative area, where the patient identified the right knee as the operative site and this was marked with my initials. The patient received pre-operative antibiotics, and was taken to the operating room and placed on the operative table in the supine position. After satisfactory anesthesia, a timekeeping supervisor out was performed. The left leg was encircled with a tourniquet about the proximal thigh, and the leg was prepared from the toes to the tourniquet with ChloroPrep in the usual fashion and draped through sterile drapes. The leg was elevated and exsanguinated with Eschmark bandage and the tourniquet inflated to [250] mmHg pressure. The knee was approached through an approximately 18 cm incision centered over the patella and carried into the knee through a medial parapatellar arthrotomy. A portion of the medial and lateral meniscus was resected. Soft tissue was carefully mobilized around the patella the patella was measured with a caliper. Bone was resected from the patella and the patellar height was reconstituted with up an appropriate sized patellar component. A cover was then placed on the patella. A small amount of additional medial and lateral meniscus was resected. The distal femur was cut at 5?. A [+2] cut was used. It looked like an appropriate distal femoral cut and the cut was made without difficulty. An extramedullary guide was used for the tibial cut. 10 mm was resected off the least affected side.The tibia was prepared. The rotation was assessed. The patient was placed in extension residual medial and lateral meniscus as well as any residual bone was carefully resected. [No] additional tibia was resected. Hemostasis was achieved especially posteriorly. Additional local was injected into the posterior capsule. The extension gap was assessed and additional releases for gap balancing were performed as necessary. It was checked with the gap brake drum lathe operator. The femoral component was trial was placed and the notch was finished. The rotation was assessed and the appropriate size femoral guide was placed on the distal femur and finishing cuts were made. There was no evidence of notching. The anterior, posterior and chamfer cuts were then made. The posterior osteophytes and soft tissues were then removed. The posterior capsule was injected with part of a mixture of 60 ml 0.25% Marcaine mixed with 20 ml Exparel for post operative pain control. The remainder of this mixture was injected into the capsule and subcutaneous tissues during cement curing.The tibial and femoral components were then placed and the knee placed through a range of motion. Range of motion was [0-130], with good stability throughout the range. The trials were then removed, and the tibia was finished. The bone was prepared with pulsatile lavage, and dried with a sponge. Cement was applied and the final prosthetics placed. Excess cement was removed during and after cement curing. A brief Betadine soak was performed. After confirming there was no extruded cement posteriorly, the final tibial insert was placed. The knee was copiously irrigated and the tourniquet deflated. Hemostasis was obtained with Bovie cautery. The capsule was closed with interrupted nonabsorbable suture. The subcutaneous layer was closed with barbed sutures, and the skin with a running 3-0 V-Lock suture and Surgical glue. An Aquacel Ag dressing was applied and the patient was taken to recovery having tolerated the procedure well. Complications: none Status at Discharge Cognitive/behavioral status at discharge: oriented Functional status at discharge: uses cane/walker Exam Vital Signs (past 8 hours): - 01/10/23 07:54 01/10/23 08:00 01/10/23 09:10 Temperature 98.8 F Pulse Rate 88 68 83 Respiratory Rate 24 16 Blood Pressure 125/68 131/49 L Pulse Oximetry 94 94 Oxygen Delivery Method Room Air Oxygen Delivery Method Room Air Oxygen Flow Rate 0 Narrative Exam Narrative: Able to dorsal and plantar flex at ankle against resistance. Sensation is grossly intact. Dressing is clean and dry. Const General: cooperative and comfortable Resp Effort & Inspection: normal respiratory effort and able to speak in complete sentences Objective Labs 01/10/23 06:13 Labs: Laboratory Results - last 24 hr 01/10/23 06:13 Hgb 10.3 L Hct 30.7 L PT 19.5 H INR 1.7 H [facility] Medical History Anticoagulation goal of INR 2.0 to 2.5 Atrial fibrillation (2013) Atrial fibrillation with RVR COPD (chronic obstructive pulmonary disease) Easy bruisability History of cardioversion Hypertension Lung cancer (2006) Osteoarthritis Osteoporosis (2015) Ovarian cancer (1994) Raynauds syndrome (12/14/10) Uterine cancer (1994) Surgical History Anesthesia History of bilateral salpingo-oophorectomy (BSO) History of breast augmentation (1992) History of hip replacement (01/2013) History of oophorectomy (1994) History of pneumonectomy (05/23/08) Status post hysterectomy (1994) Family History Father Hypertension Prostate cancer Grandfather Stroke Grandmother Diabetes mellitus Mother Diabetes mellitus, type II Hypertension Stroke Grandfather No problems noted. Grandmother No problems noted. Social History marital status: unmarried,single household members: none lives independently: Yes pets and animals: Yes education level: college occupational status: other Smoking Status: Former smoker Tobacco: How many years used: 19 second hand exposure: No alcohol intake: current substance use type: does not use Discharge Assessment & Plan Assessment and Plan Assessment: Left total knee arthroplasty Plan of Treatment: The patient will be maintained on a standard total knee replacement protocol with weight bearing as tolerated. The patient will receive Coumadin and sequential compression devices for DVT prophylaxis. The patient will be discharged home when safe for the home environment, pending PT clearance. Attend post-op outpatient PT as scheduled. Follow up in clinic in 2 weeks for wound check. Discharge Plan Discharge Plan Patient Disposition: Home Discharge orders & Medications Discharge Orders: Discharge (Order); Ordered 01/10/23 Ordered By: Kymberly Hough Prescriptions: Continued cholecalciferol (vitamin D3) [Vitamin D3] 1,000 UNIT tablet 2,000 units PO DAILY Qty: 0 carvedilol 6.25 mg tablet 6.25 mg PO BID Rx Instructions: must administer with a meal/food (DME) Disabled Parking See Rx Instructions .ROUTE .MEDSUPPLY Qty: 1 0RF Rx Instructions: I find this patient to be medically disabled and qualified for Permanent Disabled Parking as indicated, and signed, on the Accompanying Disabled Parking Application for Individuals warfarin 2 mg tablet See Rx Instructions .ROUTE .COMPLEX Qty: 90 1RF Dose Instruction: TAKE 1/2 TABLET ON SATURDAY, TAKE 1 TABLET DAILY ON ALL OTHER DAYS OF THE WEEK OR DIRECTED Rx Instructions: TAKE 1/2 TABLET ON SATURDAY, TAKE 1 TABLET DAILY ON ALL OTHER DAYS OF THE WEEK OR DIRECTED tiotropium bromide 18 mcg capsule, w/inhalation device 1 cap inhalation DAILY Qty: 90 3RF Rx Instructions: puncture 1 cap using device; one dose = 2 inhalations calcium carbonate-vitamin D3 [Calcium 600 + D(3)] 600 mg(1,500mg) -200 unit Tablet 2 tab PO DAILY multivitamin with minerals Tablet 1 tab PO DAILY flecainide 100 mg Tablet 100 mg PO Q12H amlodipine 2.5 mg Tablet 2.5 mg PO DAILY ferrous sulfate 325 mg (65 mg iron) tablet 325 mg PO Q OTHER DAY Follow up/Referrals: Rosio Puckett MD [Primary Care Provider] - Diet/Activity/Treatments Diet: Diet as Tolerated Activity: Weight bearing as tolerated with walker Cold/Heat Therapy: Ice pack over wound site up to three times a day. Skin/Wound/Dressing Care Dressing: Keep dressing clean and dry. If it becomes disturbed or dirty, change with clean gauze wrap. Visit Report/Discharge Packet Instructions: DI for Knee Replacement Stand Alone Forms: Patient Portal/API, Surgery Discharge Discharge Data Primary Care Provider: Rosio Puckett Attending Provider: Kymberly Hough
--- NOTE | 2023-01-10 12:59 | CM.DANOTE ---
Initial DCP Assessment Note Pt is a 82 yo female, resident of [place], now POD#1 from left knee surgery by Dr Hough PCP: Rosio Puckett Payer: [employer] Reviewed chart, pt discussed in multidisciplinary rounds this morning. Therapy has cleared pt for return home w/family to assist and pt has planned for home, DC order from Ortho has already been initiated this morning. No barriers identified at this time to patient's safe discharge home w/family to assist; close outpatient f/u recommended. CM team will plan to follow closely in case any DC needs or concerns arise. BEKA Vila Discharge Planning/Care Management CM Discharge Assessment Start: 01/10/23 12:57 Freq: Status: Active Protocol: Document 01/10/23 12:57 BEST (Rec: 01/10/23 12:59 [id number]) Discharge Planning Assessment Assigned Cane Burner BEKA Riley DPOA/Assigned Designee Name Brittanie (sister) Contact Information [phone] or [phone] Advance Directives? Yes Advance Directives on File No History Provided By Patient,Medical Record Prior Living Arrangements House Household Members none Type of transporation used prior to Drives own vehicle admit Independent with ADL's Yes Is patient alert and oriented? Yes Patient/Family Preference OP PT Therapy Barriers to Discharge No Discharge Plan Home Transportation Arrangement Step Dtr Referrals Initiated None needed Document 01/10/23 12:58 BEST (Rec: 01/10/23 12:59 BEST [id number]) Discharge Planning Assessment Advance Directives? Yes Advance Directives on File No History Provided By Patient,Medical Record Prior Living Arrangements House Household Members none Discharge Plan Home Transportation Arrangement Step Dtr Referrals Initiated None needed
== END 2023-01-10 11:52 | disposition home or self-care (01) ==
LOC: OR 07:35 → AC 07:35
PROVIDERS: PCP Family Medicine; Referring Provider Orthopaedic Surgery; Visit Provider Orthopaedic Surgery
PROC: 0SRD0JZ Replacement of Left Knee Joint with Synthetic Substitute, Open Approach (ICD-10-PCS; CPT 27447; principal; 2023-01-09 08:45)
DX: M17.12 Unilateral primary osteoarthritis, left knee (principal); G89.18 Other acute postprocedural pain
CPT/HCPCS: 27447; 36415; 64447; 73560; 85014; 85018; 85610; 94640; 97116; 97161; 97165; 97530; 97535; C1776; C9290; J0690; J1100; J2405; J2704; J3010

== ENCOUNTER → 2023-01-23 15:17 | Outpatient (CLI) | payer MEDICARE, OTHER, SELFPAY ==
[2023-01-09 16:08] VITALS: BMI 19.4
--- NOTE | 2023-01-23 | DI.US.S_ITS ---
PROCEDURE: US PERIP VENOUS LOW EXTREM BI INDICATIONS: BILATERAL SWELLING AND PAIN TECHNIQUE: Real-time imaging, as well as color and pulse Doppler interrogation, were performed of the deep veins of both legs from the inguinal ligament to the popliteal fossa, with documentation of the visualized calf veins. COMPARISON: [facility], , [facility] VENOUS LOW EXTREM BI, 06/24/2018, 10:44. FINDINGS: Right: The common femoral, femoral, popliteal, and the visualized calf veins are normally compressible, and free of intraluminal thrombus. Color and pulse Doppler demonstrate normal phasic intravascular flow. There is normal augmentation response to distal compression maneuver. Right medial groin nonspecific anechoic fluid collection measuring 1.9 cm. Small Peter's cyst measuring 3.1 cm. There is an additional complex fluid collection without vascularity measuring 4.4 x 2.1 x 1.3 cm within the medial/anterior popliteal fossa. Left: The common femoral, femoral, popliteal, and the visualized calf veins are normally compressible, and free of intraluminal thrombus. Color and pulse Doppler demonstrate normal phasic intravascular flow. There is normal augmentation response to distal compression maneuver. Within the medial popliteal fossa, there is a complex fluid collection with minimal vascularity at the inferior portion measuring 6.6 x 3.8 x 1.7 cm. IMPRESSION: No findings of deep venous thrombosis in either lower extremity. Complex fluid collections within the bilateral popliteal fossa as above. May represent hematoma, recommend clinical correlation for superimposed infection or abscess within this region. Dictated by: Agusto Hughes M.D. on 01/23/2023 at 16:58 Approved by: Agusto Hughes M.D. on 01/23/2023 at 17:00
[2023-01-23 17:40] LABS: Add Manual Diff / Slide Review NO; Basophils Absolute Auto 100 /uL (0-100); Basophils Percent Auto 0.6 % (0-2); Eosinophils Absolute Auto 100 /uL (0-450); Eosinophils Percent Auto 1.3 % (2-4); Hematocrit 34.8 % (36-46); Hemoglobin 11.7 g/dL (12.0-16.0); Lymphocytes Absolute Auto 800 /uL (1100-4500); Mean Corpuscular HGB Conc 33.6 % (30-36); Mean Corpuscular Hemoglobin 29.7 PG (26-34); Mean Corpuscular Volume 88.3 fL (80-100); Monocytes Absolute Auto 600 /uL (0-900); Neutrophils Absolute Auto 7600 /uL (1500-7000); Neutrophils Percent Auto 82.1 % (50-75); Platelet Count 435 X10^3/uL (150-400); Red Blood Cell Count 3.94 X10^6/uL (4.0-5.2); Red Cell Distribution Width 15.9 % (11.6-14.8); White Blood Cell Count 9.3 X10^3/uL (4.5-11.0)
== END ==
PROVIDERS: PCP Family Medicine; Referring Provider Orthopaedic Surgery; Visit Provider Orthopaedic Surgery
DX: M25.562 Pain in left knee; Z96.652 Presence of left artificial knee joint
CPT/HCPCS: 36415; 85025; 93970

== ENCOUNTER 2023-01-24 11:08 | Emergency (ER) | payer MEDICARE, OTHER, SELFPAY ==
[2023-01-09 16:08] VITALS: BMI 19.4
[2023-01-24] VITALS (9 sets, daily range): BP systolic 141–174; BP diastolic 67–82; PULSE 66–78; RESP 18–36; TEMP 36.7–36.8; O2SAT 93–100; BMI 19.5
--- NOTE | 2023-01-24 11:38 | ED.GENADULT ---
HPI - General Adult General Chief complaint: Shortness of Breath/Dyspnea Stated complaint: difficulty breathing Time Seen by Provider: 01/24/23 11:23 Source: patient Mode of arrival: Wheelchair History of Present Illness HPI narrative: Patient is an 82-year-old female. Has had a history of lung cancer. Has had a right-sided lung removal. Fourteen days ago had a left knee replacement. Since that time she has noticed increasing shortness of breath specifically with exertion. She states she does have a history of COPD. Has not had any cough or fevers. She does not wear oxygen at home. She also states she is been told that she is had heart failure. She is not on any diuretics. She is having lower extremity swelling but this has been since the surgery as well. She saw her primary doctor. Had labs drawn. Had ultrasounds yesterday which showed no DVT. She was instructed to come to the emergency department today for further evaluation. She denies chest pain. No abdominal pain nausea or vomiting. She is on Coumadin for atrial fibrillation but did have to come off this medicine for her surgery. Related Data Home Medications Medication Instructions Recorded Confirmed cholecalciferol (vitamin D3) 25 2,000 units PO DAILY ##0 06/19/16 01/09/23 mcg (1,000 unit) tablet (Vitamin D3) calcium carbonate 600 mg-vitamin 2 tab PO DAILY 06/24/18 01/09/23 D3 5 mcg (200 unit) tablet (Calcium 600 + D(3)) multivitamin with minerals 1 tab PO DAILY 06/24/18 01/09/23 carvedilol 6.25 mg tablet 6.25 mg PO BID 10/23/19 01/09/23 flecainide 100 mg tablet 100 mg PO Q12H 01/25/20 01/09/23 amlodipine 2.5 mg tablet 2.5 mg PO DAILY 05/25/21 01/09/23 ferrous sulfate 325 mg (65 mg 325 mg PO Q OTHER DAY 01/09/23 01/09/23 iron) tablet Previous Rx's Medication Instructions Recorded Disabled Parking #1 ea 07/03/22 warfarin 2 mg tablet See Rx Instructions .Route 09/03/22 .COMPLEX #90 tabs tiotropium bromide 18 mcg capsule 1 cap inhalation DAILY #90 12/04/22 with inhalation device inhalations furosemide 20 mg tablet (Lasix) 20 mg PO QAM #30 tabs 01/24/23 Allergies Allergy/AdvReac Type Severity Reaction Status Date / Time No Known Drug Allergies Allergy Verified 01/09/23 07:59 Review of Systems Review of Systems ROS Unobtainable: All systems reviewed & are unremarkable except as noted in HPI and below Patient History Medical History Easy bruisability History of cardioversion Anticoagulation goal of INR 2.0 to 2.5 Raynauds syndrome (12/14/10) Atrial fibrillation with RVR COPD (chronic obstructive pulmonary disease) Uterine cancer (1994) Ovarian cancer (1994) Osteoporosis (2015) Osteoarthritis Atrial fibrillation (2013) Hypertension Lung cancer (2006) Surgical History Anesthesia History of bilateral salpingo-oophorectomy (BSO) History of breast augmentation (1992) History of hip replacement (01/2013) History of oophorectomy (1994) History of pneumonectomy (05/23/08) Status post hysterectomy (1994) Family History Father Hypertension Prostate cancer Grandfather Stroke Grandmother Diabetes mellitus Mother Diabetes mellitus, type II Hypertension Stroke Grandfather No problems noted. Grandmother No problems noted. Social History marital status: unmarried,single household members: none lives independently: Yes pets and animals: Yes education level: college occupational status: other Smoking Status: Former smoker Tobacco: How many years used: 19 second hand exposure: No alcohol intake: current substance use type: does not use Smoking Status: Former smoker alcohol intake frequency: holidays/special occasions only Substance Use Type: does not use Exam Initial Vital Signs Initial Vital Signs: Vital Signs Pulse Rate 75 01/24/23 11:22 Respiratory Rate 31 H 01/24/23 11:22 Pulse Oximetry 100 01/24/23 11:22 HENMT Head: normal to inspection Resp Other: Decreased breath sounds on the right, clear breath sounds on the left Cardio Rate: regular rate Rhythm: abnormal rhythm GI Inspection: normal to inspection Skin General: no rashes or lesions noted Neuro General: patient alert, patient awake and moves all extremities Extrem General: edema Course Orders Ordered: ED Orders 01/24/23 11:39 CT angio chest PE protocol Stat 01/24/23 11:55 Complete Blood Count AUTO DIFF Stat Comprehensive Metabolic Panel Stat Lipase Stat NT-proBNP (BNP-Adult 18+) Stat Prothrombin Time INR Stat Troponin & CK Cardiac Panel Stat 01/24/23 12:13 EKG-12 Lead Stat Discontinued Medications Furosemide (Furosemide 20 Mg Tablet) 20 mg PO NOW ONE Stop: 01/24/23 13:45 Vital Signs Vital signs: Vital Signs - 8 hr 01/24/23 11:22 01/24/23 11:25 01/24/23 11:30 Temperature 98.2 F Pulse Rate 75 75 Respiratory Rate 31 H 24 Blood Pressure 172/72 H 143/69 H Pulse Oximetry 100 97 Oxygen Delivery Method Room Air 01/24/23 11:30 01/24/23 12:00 01/24/23 12:00 Temperature Pulse Rate 66 66 Respiratory Rate 28 H 36 H Blood Pressure 172/72 H Pulse Oximetry 99 96 Oxygen Delivery Method 01/24/23 12:30 01/24/23 12:30 01/24/23 12:57 Temperature Pulse Rate 67 Respiratory Rate 25 H Blood Pressure 168/74 H 141/67 H Pulse Oximetry 95 Oxygen Delivery Method 01/24/23 12:57 01/24/23 13:00 01/24/23 13:00 Temperature Pulse Rate 71 68 Respiratory Rate 28 H Blood Pressure 174/77 H Pulse Oximetry 98 93 Oxygen Delivery Method 01/24/23 13:30 01/24/23 13:30 Temperature Pulse Rate 70 Respiratory Rate 20 Blood Pressure 154/82 H Pulse Oximetry Oxygen Delivery Method Medical Decision Making Medical Records Medical records reviewed: Yes I reviewed the patient's medical records. Lab Data Lab results reviewed: Yes I reviewed the patient's lab results. 01/24/23 11:55 01/24/23 11:55 Labs: Lab Results 01/24/23 Range/Units 11:55 WBC 7.2 (4.5-11.0) X10^3/uL RBC 3.55 L (4.0-5.2) X10^6/uL Hgb 10.5 L (12.0-16.0) g/dL Hct 31.8 L (36-46) % MCV 89.7 (80-100) fL MCH 29.5 (26-34) PG MCHC 32.9 (30-36) % RDW 16.2 H (11.6-14.8) % Plt Count 399 (150-400) X10^3/uL Neut % (Auto) 75.5 H (50-75) % Lymph % (Auto) 12.5 L (25-40) % [place] % (Auto) 9.2 (3-14) % Eos % (Auto) 2.1 (2-4) % Baso % (Auto) 0.7 (0-2) % Neut # (Auto) 5500 (3987-9590) /uL Lymph # (Auto) 900 L (6027-8733) /uL [place] # (Auto) 700 (0-900) /uL Eos # (Auto) 100 (0-450) /uL Baso # (Auto) 100 (0-100) /uL PT 30.9 H (10.1-12.7) SECONDS INR 2.7 H (0.9-1.3) Sodium 132 L (137-145) mmol/L Potassium 3.5 (3.4-5.1) mmol/L Chloride 97 L (98-107) mmol/L Carbon Dioxide 31 (22-32) mmol/L BUN 17 (7-17) mg/dL Creatinine 0.62 (0.52-1.04) mg/dL Estimated GFR > 60 (>60) mL/min BUN/Creatinine Ratio 27.4 H (6-22) Glucose 112 H (80-110) mg/dL Calcium 9.6 (8.4-10.2) mg/dL Total Bilirubin 0.7 (0.2-1.3) mg/dL AST 25 (14-36) IU/L ALT 16 (<35) IU/L Alkaline Phosphatase 61 (38-126) U/L Total Creatine Kinase 61 (30-135) U/L Troponin I < 0.012 (0.01-0.034) ng/mL NT-Pro-B Natriuret Pep 2610 H (<450) pg/mL Total Protein 6.2 L (6.3-8.2) g/dL Albumin 3.4 L (3.5-5.0) g/dL Globulin 2.8 (1.7-4.1) g/dL Albumin/Globulin Ratio 1.2 (1.0-2.8) Lipase 28 (23-300) U/L Urine Dip Bedside Urine Glucose Negative Bedside Urine Bilirubin - Negative Bedside Urine Ketone - Negative Urine Specific [place] 1.010 Bedside Urine Occult Blood - Negative Bedside Urine pH 6.5 Bedside Urine Protein - Negative Bedside Urine Urobilinogen - Negative Bedside Urine Nitrite - Negative Bedside Urine Leukocytes - Negative Esterase Point of care testing: Urine Dip Bedside Urine Glucose Negative Bedside Urine Bilirubin - Negative Bedside Urine Ketone - Negative Urine Specific [place] 1.010 Bedside Urine Occult Blood - Negative Bedside Urine pH 6.5 Bedside Urine Protein - Negative Bedside Urine Urobilinogen - Negative Bedside Urine Nitrite - Negative Bedside Urine Leukocytes - Negative Esterase Imaging Data CT scan - chest: Radiologist's Impression: PROCEDURE: CT ANGIO CHEST PE PROTOCOL INDICATIONS: Chest pain, shortness of breath, tachycardia TECHNIQUE: After the administration of intravenous contrast, 2 mm thick sections acquired from the pulmonary apices to the posterior costophrenic angles. 3-dimensional maximum intensity projection (MIP) coronal and sagittal reformats were then acquired through the thorax. For radiation dose reduction, the following was used: automated exposure control, adjustment of mA and/or kV according to patient size. COMPARISON: None. FINDINGS: Image quality: Diagnostic. Pulmonary arteries: Pulmonary arteries are normal in size, and demonstrate no intraluminal filling defects to suggest central pulmonary embolism. Lungs and pleura: Remote right pneumonectomy. Mediastinal shift and herniation the left lung into the right hemithorax. Left lung is clear without any mass. Mediastinum: Heart in the rest of the mediastinum is shifted to the right. Cardiomegaly. No mediastinal or hilar adenopathy. Thoracic aorta is normal in caliber and enhancement. Esophagus is normal in caliber, without hiatal hernia. Bones and chest wall: No suspicious bony lesions. Ribs and thoracic spine appear intact throughout. No axillary or supraclavicular adenopathy. No thyroid nodules which require sonographic follow up, per consensus guidelines. Abdomen: Visualized upper abdominal solid organs appear normal in the early arterial phase of enhancement. IMPRESSION: 1. Remote right pneumonectomy. 2. No acute pulmonary emboli. 3. No acute pulmonary process. 4. Cardiomegaly. ECG Data Attestation: I personally reviewed and interpreted this ECG as follows: Interpretation: Sinus rhythm Ventricular rate is 67 First-degree AV block IA interval 3-0 milliseconds QRS [address] T wave changes MDM Narrative Medical decision making narrative: Patient is not hypoxic. Has clear lungs. CT scan shows no pulmonary embolism. She does have lower extremity swelling. This would be expected in her left leg because she just had a knee replacement but she does have bilateral swelling. Does have a history of CHF. No pulmonary edema noted on the CT scan but she does have a BNP that is greater than 2000. No prior ones to compare to. She states she is never been on Lasix before. There was no signs of pneumonia. She had a DVT ultrasound recently that was negative. She is not having any coughing or fevers. Plan will be is to put her on Lasix for the next couple days. Hopefully this will help her diurese and maybe helped her breathing better. I suspect that she has very little reserve at baseline secondary to the right-sided pneumonectomy and then the deconditioning from the left total knee replacement in the potentially some fluid overload is contributing to her presenting symptoms today. She was given return precautions. She expressed understanding and agreement. Discharge Plan Departure Patient Disposition: Home Clinical Impression: Dyspnea on exertion Instructions: How to Manage Shortness of Breath Activity Restrictions/Additional Instructions: I do recommend that you continue to take all of your medications as directed and follow all of the postoperative instructions given to you by the orthopedic surgeon. We are going to put you on a medicine called furosemide/Lasix for the next couple days. This is a 1 time a day medication that I recommend that you take in the morning. You can take it like we discussed. It is going to make you urinate more. Contact your primary doctor for a follow-up. Return to the emergency department for new or worsening symptoms. Prescriptions: New furosemide [Lasix] 20 mg tablet 20 mg PO QAM Qty: 30 0RF No Action cholecalciferol (vitamin D3) [Vitamin D3] 1,000 UNIT tablet 2,000 units PO DAILY Qty: 0 carvedilol 6.25 mg tablet 6.25 mg PO BID Rx Instructions: must administer with a meal/food (DME) Disabled Parking See Rx Instructions .ROUTE .MEDSUPPLY Qty: 1 0RF Rx Instructions: I find this patient to be medically disabled and qualified for Permanent Disabled Parking as indicated, and signed, on the Accompanying Disabled Parking Application for Individuals warfarin 2 mg tablet See Rx Instructions .ROUTE .COMPLEX Qty: 90 1RF Dose Instruction: TAKE 1/2 TABLET ON SATURDAY, TAKE 1 TABLET DAILY ON ALL OTHER DAYS OF THE WEEK OR DIRECTED Rx Instructions: TAKE 1/2 TABLET ON SATURDAY, TAKE 1 TABLET DAILY ON ALL OTHER DAYS OF THE WEEK OR DIRECTED tiotropium bromide 18 mcg capsule, w/inhalation device 1 cap inhalation DAILY Qty: 90 3RF Rx Instructions: puncture 1 cap using device; one dose = 2 inhalations calcium carbonate-vitamin D3 [Calcium 600 + D(3)] 600 mg(1,500mg) -200 unit Tablet 2 tab PO DAILY multivitamin with minerals Tablet 1 tab PO DAILY flecainide 100 mg Tablet 100 mg PO Q12H amlodipine 2.5 mg Tablet 2.5 mg PO DAILY ferrous sulfate 325 mg (65 mg iron) tablet 325 mg PO Q OTHER DAY Referrals: Rosio Puckett MD [Primary Care Provider] - Stand Alone Forms: Patient Portal/API
[2023-01-24 12:11] LABS: Add Manual Diff / Slide Review NO; Basophils Absolute Auto 100 /uL (0-100); Basophils Percent Auto 0.7 % (0-2); Eosinophils Absolute Auto 100 /uL (0-450); Eosinophils Percent Auto 2.1 % (2-4); Hematocrit 31.8 % (36-46); Hemoglobin 10.5 g/dL (12.0-16.0); Lymphocytes Absolute Auto 900 /uL (1100-4500); Lymphocytes Percent Auto 12.5 % (25-40); Mean Corpuscular HGB Conc 32.9 % (30-36); Mean Corpuscular Hemoglobin 29.5 PG (26-34); Mean Corpuscular Volume 89.7 fL (80-100); Monocytes Absolute Auto 700 /uL (0-900); Monocytes Percent Auto 9.2 % (3-14); Neutrophils Absolute Auto 5500 /uL (1500-7000); Neutrophils Percent Auto 75.5 % (50-75); Platelet Count 399 X10^3/uL (150-400); Red Blood Cell Count 3.55 X10^6/uL (4.0-5.2); Red Cell Distribution Width 16.2 % (11.6-14.8); White Blood Cell Count 7.2 X10^3/uL (4.5-11.0)
[2023-01-24 12:19] LABS: INR 2.7 (0.9-1.3); Prothrombin Time 30.9 SECONDS (10.1-12.7)
[2023-01-24 12:22] LABS: Creatine Kinase 61 U/L (30-135); Lipase 28 U/L (23-300)
[2023-01-24 12:23] LABS: Alanine Aminotransferase 16 IU/L (<35); Albumin 3.4 g/dL (3.5-5.0); Albumin Globulin Ratio 1.2 (1.0-2.8); Alkaline Phosphatase 61 U/L (38-126); Aspartate Aminotransferase 25 IU/L (14-36); BUN Creatinine Ratio 27.4 (6-22); Bilirubin Total 0.7 mg/dL (0.2-1.3); Blood Urea Nitrogen 17 mg/dL (7-17); Calcium 9.6 mg/dL (8.4-10.2); Carbon Dioxide 31 mmol/L (22-32); Chloride 97 mmol/L (98-107); Estimated Glomerular Filt Rate > 60 mL/min (>60); Globulin 2.8 g/dL (1.7-4.1); Glucose 112 mg/dL (80-110); HEMOLYSIS < 15 (0-50); Potassium 3.5 mmol/L (3.4-5.1); Sodium 132 mmol/L (137-145); Total Protein 6.2 g/dL (6.3-8.2)
[2023-01-24 12:34] LABS: NT-proBNP (BNP-Adult 18+) 2610 pg/mL (<450); Troponin I < 0.012 ng/mL (0.01-0.034)
[2023-01-24] MEDS: FUROSEMIDE 20 MG TABLET PO (14:03)
== END 2023-01-24 14:15 | disposition home or self-care (01) ==
PROVIDERS: Emergency Provider Emergency Medicine; PCP Family Medicine
DX: R06.00 Dyspnea, unspecified (principal); R07.9 Chest pain, unspecified; R00.0 Tachycardia, unspecified; Z79.01 Long term (current) use of anticoagulants; Z90.2 Acquired absence of lung [part of]
CPT/HCPCS: 36415; 71275; 80053; 81003; 82550; 83690; 83880; 84484; 85025; 85610; 93005; 93010; 99284; Q9967

== ENCOUNTER 2023-02-06 15:01 | Emergency (ER) | payer MEDICARE, OTHER, SELFPAY ==
[2023-01-09 16:08] VITALS: BMI 19.4
[2023-02-06] VITALS (11 sets, daily range): BP systolic 148–184; BP diastolic 70–93; PULSE 72–88; RESP 20–33; TEMP 37.7; O2SAT 86–96; BMI 19.8
--- NOTE | 2023-02-06 15:14 | DI.RAD.S_ITS ---
PROCEDURE: XR CHEST 1V INDICATIONS: Shortness of breath TECHNIQUE: One view of the chest was acquired. COMPARISON: [facility], CR, XR CHEST 1V, 07/18/2022, 7:21. FINDINGS: Surgical changes and devices: None Lungs and pleura: Right pneumonectomy is redemonstrated. There are diffuse interstitial opacities throughout the left lung. No focal airspace opacities. No pleural effusion or pneumothorax. Mediastinum: The mediastinum is not well characterized. Bones and chest wall: No suspicious bony lesions. Overlying soft tissues appear unremarkable. IMPRESSION: Diffuse interstitial radiopacities throughout the aerated left lung suggesting pulmonary edema. Dictated by: Kaitlyn Salgado M.D. on 02/06/2023 at 16:01 Approved by: Kaitlyn Salgado M.D. on 02/06/2023 at 16:02
[2023-02-06 15:55] LABS: Add Manual Diff / Slide Review NO; Basophils Absolute Auto 0 /uL (0-100); Basophils Percent Auto 0.6 % (0-2); Eosinophils Absolute Auto 0 /uL (0-450); Eosinophils Percent Auto 0.7 % (2-4); Hematocrit 34.4 % (36-46); Hemoglobin 11.1 g/dL (12.0-16.0); Lymphocytes Absolute Auto 500 /uL (1100-4500); Lymphocytes Percent Auto 9.4 % (25-40); Mean Corpuscular HGB Conc 32.4 % (30-36); Mean Corpuscular Hemoglobin 29.3 PG (26-34); Mean Corpuscular Volume 90.4 fL (80-100); Monocytes Absolute Auto 800 /uL (0-900); Monocytes Percent Auto 15.4 % (3-14); Neutrophils Absolute Auto 3800 /uL (1500-7000); Neutrophils Percent Auto 73.9 % (50-75); Platelet Count 272 X10^3/uL (150-400); Red Cell Distribution Width 16.3 % (11.6-14.8); White Blood Cell Count 5.1 X10^3/uL (4.5-11.0)
[2023-02-06 15:58] LABS: INR 3.1 (0.9-1.3)
[2023-02-06 16:01] LABS: Prothrombin Time 35.6 SECONDS (9.4-12.5)
[2023-02-06 16:07] LABS: Alanine Aminotransferase 17 IU/L (<35); Albumin 3.9 g/dL (3.5-5.0); Albumin Globulin Ratio 1.3 (1.0-2.8); Alkaline Phosphatase 78 U/L (38-126); Aspartate Aminotransferase 29 IU/L (14-36); BUN Creatinine Ratio 27.5 (6-22); Bilirubin Total 0.8 mg/dL (0.2-1.3); Blood Urea Nitrogen 14 mg/dL (7-17); Calcium 9.2 mg/dL (8.4-10.2); Carbon Dioxide 34 mmol/L (22-32); Chloride 93 mmol/L (98-107); Estimated Glomerular Filt Rate > 60 mL/min (>60); Globulin 3.1 g/dL (1.7-4.1); Glucose 105 mg/dL (80-110); HEMOLYSIS < 15 (0-50); Potassium 3.5 mmol/L (3.4-5.1); Sodium 132 mmol/L (137-145)
[2023-02-06 16:19] LABS: NT-proBNP (BNP-Adult 18+) 2140 pg/mL (<450); Troponin I 0.014 ng/mL (0.01-0.034)
--- NOTE | 2023-02-06 16:26 | ED.SOB ---
HPI - SOB/Dyspnea General Chief Complaint: Shortness of Breath/Dyspnea Stated Complaint: difficulty breathing Time Seen by Provider: 02/06/23 15:33 Source: patient Mode of arrival: Wheelchair History of Present Illness HPI Narrative: 82-year-old female with history of lung cancer status post pneumonectomy 2007 (in remission since), CHF, COPD presents by private vehicle from home for several days of gradually worsening shortness of breath, worse with exertion and when lying flat. Reports bilateral lower extremity swelling that is slightly worse than her baseline. Denies chest pain, syncope. Takes 20 mg Lasix daily. Related Data Home Medications Medication Instructions Recorded Confirmed cholecalciferol (vitamin D3) 25 2,000 units PO DAILY ##0 06/19/16 01/09/23 mcg (1,000 unit) tablet (Vitamin D3) calcium carbonate 600 mg-vitamin 2 tab PO DAILY 06/24/18 01/09/23 D3 5 mcg (200 unit) tablet (Calcium 600 + D(3)) multivitamin with minerals 1 tab PO DAILY 06/24/18 01/09/23 carvedilol 6.25 mg tablet 6.25 mg PO BID 10/23/19 01/09/23 flecainide 100 mg tablet 100 mg PO Q12H 01/25/20 01/09/23 amlodipine 2.5 mg tablet 2.5 mg PO DAILY 05/25/21 01/09/23 ferrous sulfate 325 mg (65 mg 325 mg PO Q OTHER DAY 01/09/23 01/09/23 iron) tablet Previous Rx's Medication Instructions Recorded Disabled Parking #1 ea 07/03/22 warfarin 2 mg tablet See Rx Instructions .Route 09/03/22 .COMPLEX #90 tabs tiotropium bromide 18 mcg capsule 1 cap inhalation DAILY #90 12/04/22 with inhalation device inhalations furosemide 20 mg tablet (Lasix) 20 mg PO QAM #30 tabs 01/24/23 furosemide 40 mg tablet 40 mg PO QAM #30 tabs 02/06/23 Allergies Allergy/AdvReac Type Severity Reaction Status Date / Time No Known Drug Allergies Allergy Verified 02/06/23 15:11 Review of Systems Review of Systems Narrative: Negative except as noted above Patient History Medical History Easy bruisability History of cardioversion Anticoagulation goal of INR 2.0 to 2.5 Raynauds syndrome (12/14/10) Atrial fibrillation with RVR COPD (chronic obstructive pulmonary disease) Uterine cancer (1994) Ovarian cancer (1994) Osteoporosis (2015) Osteoarthritis Atrial fibrillation (2013) Hypertension Lung cancer (2006) Surgical History Anesthesia History of bilateral salpingo-oophorectomy (BSO) History of breast augmentation (1992) History of hip replacement (01/2013) History of oophorectomy (1994) History of pneumonectomy (05/23/08) Status post hysterectomy (1994) Family History Father Hypertension Prostate cancer Grandfather Stroke Grandmother Diabetes mellitus Mother Diabetes mellitus, type II Hypertension Stroke Grandfather No problems noted. Grandmother No problems noted. Social History marital status: unmarried,single household members: none lives independently: Yes pets and animals: Yes education level: college occupational status: other Smoking Status: Former smoker Tobacco: How many years used: 19 second hand exposure: No alcohol intake: current substance use type: does not use Smoking Status: Former smoker alcohol intake frequency: holidays/special occasions only Substance Use Type: does not use Exam Initial Vital Signs Initial Vital Signs: Vital Signs Temperature 99.9 F H 02/06/23 15:06 Pulse Rate 88 02/06/23 15:06 Respiratory Rate 20 02/06/23 15:06 Blood Pressure 158/93 H 02/06/23 15:06 Pulse Oximetry 94 02/06/23 15:06 Oxygen Delivery Method Room Air 02/06/23 15:06 Const: Awake, alert, no acute distress, nontoxic appearing, frail Cardiac: regular rate, regular rhythm, trace pitting edema bilateral lower extremities RESP: unlabored, absent right-sided breath sounds, inspiratory crackles upper and lower right lung cortes GI: Atraumatic, soft, nontender, nondistended, no rebound, no guarding MSK: Atraumatic, full range of motion, pulses equal Skin: Warm, Dry, intact, no rashes Neuro: AO x3, CN II-XII grossly intact, moves all extremities Psych: affect normal, mood normal, not suicidal, not homicidal Course Orders Ordered: Discontinued Medications Furosemide (Furosemide 40 Mg/4 Ml Vial) 40 mg IV NOW ONE Stop: 02/06/23 16:27 Last Admin: 02/06/23 16:35 Dose: 40 mg Documented By: DEMETRIA Vital Signs Vital signs: Vital Signs - 8 hr 02/06/23 15:06 02/06/23 15:54 02/06/23 15:57 Temperature 99.9 F H Pulse Rate 88 73 73 Respiratory Rate 20 Blood Pressure 158/93 H Pulse Oximetry 94 86 L 90 L Oxygen Delivery Method Room Air 02/06/23 15:57 02/06/23 16:00 02/06/23 16:00 Temperature Pulse Rate 72 Respiratory Rate Blood Pressure 148/73 H 148/70 H Pulse Oximetry 90 L Oxygen Delivery Method 02/06/23 16:17 02/06/23 16:17 02/06/23 16:30 Temperature Pulse Rate 75 72 Respiratory Rate 20 24 Blood Pressure 162/74 H Pulse Oximetry 91 92 Oxygen Delivery Method 02/06/23 16:30 02/06/23 17:05 02/06/23 17:06 Temperature Pulse Rate 81 Respiratory Rate 21 Blood Pressure 167/77 H 184/81 H Pulse Oximetry 90 L Oxygen Delivery Method 02/06/23 17:06 02/06/23 17:30 Temperature Pulse Rate 77 82 Respiratory Rate 28 H 33 H Blood Pressure Pulse Oximetry 90 L 91 Oxygen Delivery Method MDM - SOB/Dyspnea Differential Diagnosis Differential diagnosis: Likely acute exacerbation of chronic obstructive airways disease, congestive heart failure and community acquired pneumonia Lab Data 02/06/23 15:40 02/06/23 15:40 Labs: Lab Results 02/06/23 Range/Units 15:40 WBC 5.1 (4.5-11.0) X10^3/uL RBC 3.80 L (4.0-5.2) X10^6/uL Hgb 11.1 L (12.0-16.0) g/dL Hct 34.4 L (36-46) % MCV 90.4 (80-100) fL MCH 29.3 (26-34) PG MCHC 32.4 (30-36) % RDW 16.3 H (11.6-14.8) % Plt Count 272 (150-400) X10^3/uL Neut % (Auto) 73.9 (50-75) % Lymph % (Auto) 9.4 L (25-40) % [place] % (Auto) 15.4 H (3-14) % Eos % (Auto) 0.7 L (2-4) % Baso % (Auto) 0.6 (0-2) % Neut # (Auto) 3800 (9612-0794) /uL Lymph # (Auto) 500 L (3984-0286) /uL [place] # (Auto) 800 (0-900) /uL Eos # (Auto) 0 (0-450) /uL Baso # (Auto) 0 (0-100) /uL PT 35.6 H (9.4-12.5) SECONDS INR 3.1 H (0.9-1.3) Sodium 132 L (137-145) mmol/L Potassium 3.5 (3.4-5.1) mmol/L Chloride 93 L (98-107) mmol/L Carbon Dioxide 34 H (22-32) mmol/L BUN 14 (7-17) mg/dL Creatinine 0.51 L (0.52-1.04) mg/dL Estimated GFR > 60 (>60) mL/min BUN/Creatinine Ratio 27.5 H (6-22) Glucose 105 (80-110) mg/dL Lactate 1.0 (0.7-2.1) mmol/L Calcium 9.2 (8.4-10.2) mg/dL Total Bilirubin 0.8 (0.2-1.3) mg/dL AST 29 (14-36) IU/L ALT 17 (<35) IU/L Alkaline Phosphatase 78 (38-126) U/L Troponin I 0.014 (0.01-0.034) ng/mL NT-Pro-B Natriuret Pep 2140 H (<450) pg/mL Total Protein 7.0 (6.3-8.2) g/dL Albumin 3.9 (3.5-5.0) g/dL Globulin 3.1 (1.7-4.1) g/dL Albumin/Globulin Ratio 1.3 (1.0-2.8) MDM Narrative Medical decision making narrative: Worsening shortness of breath with orthopnea and lower extremity edema. Patient saturating 94% on room air. Chest x-ray is concerning for volume overload. Patient does have congestive heart failure and this is consistent with the patient's clinical presentation. We will give IV bolus of Lasix and we will monitor patient for diuresis. Patient diuresing well with IV Lasix. Ambulatory pulse ox stable on room air. Patient reports feeling improved. Shared decision making with patient at bedside. She states that she would prefer to go home and we will follow up with her primary care physician, and states that it is easy for her to make a follow up appointment. Patient was counseled to increase her Lasix to 40 mg daily until she sees her primary care physician, ideally within 1 week. ED return precautions discussed at bedside. Patient expressed understanding of the plan and is in agreement at this time. All questions answered at the time of discharge. Discharge Plan Departure Patient Disposition: Home Clinical Impression: CHF (congestive heart failure) Instructions: DI for Heart Failure Activity Restrictions/Additional Instructions: Increase your Lasix to 40 mg daily. Follow up with your primary care physician within 1 week. If you notice worsening shortness of breath, chest pain, or can not function due to your shortness of breath and I recommend you come back to the emergency department for repeat evaluation. Prescriptions: New furosemide 40 mg tablet 40 mg PO QAM Qty: 30 0RF No Action cholecalciferol (vitamin D3) [Vitamin D3] 1,000 UNIT tablet 2,000 units PO DAILY Qty: 0 carvedilol 6.25 mg tablet 6.25 mg PO BID Rx Instructions: must administer with a meal/food (DME) Disabled Parking See Rx Instructions .ROUTE .MEDSUPPLY Qty: 1 0RF Rx Instructions: I find this patient to be medically disabled and qualified for Permanent Disabled Parking as indicated, and signed, on the Accompanying Disabled Parking Application for Individuals warfarin 2 mg tablet See Rx Instructions .ROUTE .COMPLEX Qty: 90 1RF Dose Instruction: TAKE 1/2 TABLET ON SATURDAY, TAKE 1 TABLET DAILY ON ALL OTHER DAYS OF THE WEEK OR DIRECTED Rx Instructions: TAKE 1/2 TABLET ON SATURDAY, TAKE 1 TABLET DAILY ON ALL OTHER DAYS OF THE WEEK OR DIRECTED tiotropium bromide 18 mcg capsule, w/inhalation device 1 cap inhalation DAILY Qty: 90 3RF Rx Instructions: puncture 1 cap using device; one dose = 2 inhalations calcium carbonate-vitamin D3 [Calcium 600 + D(3)] 600 mg(1,500mg) -200 unit Tablet 2 tab PO DAILY multivitamin with minerals Tablet 1 tab PO DAILY furosemide [Lasix] 20 mg tablet 20 mg PO QAM Qty: 30 0RF flecainide 100 mg Tablet 100 mg PO Q12H amlodipine 2.5 mg Tablet 2.5 mg PO DAILY ferrous sulfate 325 mg (65 mg iron) tablet 325 mg PO Q OTHER DAY Referrals: Rosio Pucktet MD [Primary Care Provider] - Stand Alone Forms: Patient Portal/API
[2023-02-06] MEDS: FUROSEMIDE 40 MG/4 ML VIAL IV (16:35)
== END 2023-02-06 19:15 | disposition home or self-care (01) ==
PROVIDERS: Emergency Provider Emergency Medicine; PCP Family Medicine
DX: I11.0 Hypertensive heart disease with heart failure (principal); I50.9 Heart failure, unspecified; Z87.891 Personal history of nicotine dependence
CPT/HCPCS: 36415; 71045; 80053; 83605; 83880; 84484; 85025; 85610; 93005; 96374; 99284; J1940

== ENCOUNTER → 2023-02-15 11:49 | Outpatient (CLI) | payer MEDICARE, OTHER, SELFPAY ==
[2023-01-09 16:08] VITALS: BMI 19.4
[2023-02-15 15:21] LABS: HEMOLYSIS < 15 (0-50); NT-proBNP (BNP-Adult 18+) 1010 pg/mL (<450)
[2023-02-15 15:25] LABS: BUN Creatinine Ratio 41.5 (6-22); Blood Urea Nitrogen 27 mg/dL (7-17); Calcium 10.3 mg/dL (8.4-10.2); Carbon Dioxide 33 mmol/L (22-32); Chloride 93 mmol/L (98-107); Estimated Glomerular Filt Rate > 60 mL/min (>60); Glucose 129 mg/dL (80-110); Potassium 3.7 mmol/L (3.4-5.1); Sodium 135 mmol/L (137-145)
== END ==
PROVIDERS: PCP Family Medicine; Referring Provider Family Medicine; Visit Provider Family Medicine
DX: I50.9 Heart failure, unspecified (principal)
CPT/HCPCS: 36415; 80048; 83880

== ENCOUNTER 2023-03-05 11:46 | Emergency (ER) | payer MEDICARE, OTHER, SELFPAY ==
[2023-02-26 11:48] VITALS: BMI 19.4
[2023-03-05 11:48] VITALS: BP 154/82; PULSE 82; RESP 20; TEMP 36.6; O2SAT 99; BMI 19.8
--- NOTE | 2023-03-05 11:58 | DI.CT.S_ITS ---
PROCEDURE: CT FACIAL BONES WO CON INDICATIONS: fall on thinners TECHNIQUE: Noncontrast 2.5 mm thick axial images acquired from the mandible through the frontal sinuses, with coronal and sagittal reformatting. For radiation dose reduction, the following was used: automated exposure control, adjustment of mA and/or kV according to patient size. COMPARISON: None. FINDINGS: Image quality: Excellent. Bones and teeth: Orbital valdez are intact. Sinus valdez show no fracture or deformity. There are bilateral displaced nasal bone fractures. Visualized portions of the mandible demonstrate no fractures or subluxation. Zygomatic arches are intact. Pterygoid plates are intact. Visualized portions of the skull base and auditory canals are intact. Sinuses: Paranasal sinuses are aerated, without fluid levels, mucosal thickening, or mucoceles. Mastoid air cells are aerated. Soft tissues: There is a 2.6 x 1.4 cm right frontal subgaleal hematoma. No other soft tissue swelling, hematoma, or laceration. No unexpected radiopaque foreign bodies. Vascular: Visualized vascular structures appear normal in the absence of contrast. Bony vascular foramina and canals are intact. IMPRESSION: 1. Bilateral displaced nasal bone fractures. 2. Right frontal subgaleal hematoma. No underlying calvarial abnormality. Dictated by: Kaitlyn Salgado M.D. on 03/05/2023 at 12:40 Approved by: Kaitlyn Salgado M.D. on 03/05/2023 at 12:43
--- NOTE | 2023-03-05 11:58 | DI.CT.S_ITS ---
PROCEDURE: CT HEAD/BRAIN WO CON INDICATIONS: fall on thinners TECHNIQUE: Noncontrast 4.5 mm thick angled axial sections acquired from the foramen magnum to the vertex, with coronal and sagittal reformats. For radiation dose reduction, the following was used: automated exposure control, adjustment of mA and/or kV according to patient size. COMPARISON: [facility], CT, CT HEAD/BRAIN WO CON, 05/11/2021, 21:17. FINDINGS: Image quality: Diagnostic. CSF spaces: Basal cisterns are patent. No extra-axial fluid collections. The ventricles are symmetric in size and shape. Brain: No intracranial bleeds or masses. There is cerebral volume loss for age, with resultant ventricular and sulcal prominence. There are periventricular and deep white matter chronic small vessel ischemic changes. There is intracranial internal carotid artery atherosclerosis. Skull and face: There is a right frontal subgaleal hematoma Calvarium and visualized facial bones appear intact, without suspicious lesions. Sinuses: Visualized sinuses and mastoids are clear. IMPRESSION: 1. Right frontal subgaleal hematoma. No underlying calvarial abnormality. 2. No acute intracranial findings. 3. Mild findings likely associated with chronic microvascular ischemia. Dictated by: Kaitlyn Salgado M.D. on 03/05/2023 at 12:46 Approved by: Kaitlyn Salgado M.D. on 03/05/2023 at 12:48
--- NOTE | 2023-03-05 12:14 | DI.CT.S_ITS ---
PROCEDURE: CT CERVICAL SPINE WO CON INDICATIONS: fall on thinners TECHNIQUE: Noncontrast 3 mm thick sections acquired from the skull base to the T4 level. Sagittal and coronal reformats were then constructed. For radiation dose reduction, the following was used: automated exposure control, adjustment of mA and/or kV according to patient size. COMPARISON: [facility], CT, CT CERVICAL SPINE WO CON, 05/11/2021, 21:17. FINDINGS: Image quality: Excellent. Bones: There is grade 2 C4 on C5 anterolisthesis. Severe degenerative changes are present throughout the cervical spine including intervertebral disc space narrowing, endplate sclerosis and osteophytosis. No acute fracture or dislocation. Soft tissues: Prevertebral soft tissues are normal in thickness. No paravertebral hematomas. No apical pneumothoraces. Right pneumonectomy is redemonstrated. IMPRESSION: 1. No acute cervical spine injury. 2. Severe degenerative change. Dictated by: Kaitlyn Salgado M.D. on 03/05/2023 at 12:31 Approved by: Kaitlyn Salgado M.D. on 03/05/2023 at 12:40
--- NOTE | 2023-03-05 12:26 | ED.FALL ---
HPI - Fall <Fuad Barillas PA-C - Last Filed: 03/05/23 13:08> General Chief Complaint: Fall Stated Complaint: T-7 fall PCP ref. a CAT scan Time Seen by Provider: 03/05/23 12:26 Source: patient Mode of arrival: Ambulatory History of Present Illness HPI Narrative: This is a 82-year-old female presents to the emergency department due to a ground level fall approximately 7 days ago where she fell ?flat on her face?. She had not lose conscious. She had not report any nausea or vomiting or dizziness or slurred speech or any other concerning signs or symptoms since accident. Patient reports she tripped and fall while moving her laundry basket. She denies any other pain to the rest of her body. She denies any neck pain. She was states she was a small amount of pain to the right side of her forehead. She has been taking her warfarin as prescribed. Denies any other systemic symptoms. Related Data Home Medications Medication Instructions Recorded Confirmed cholecalciferol (vitamin D3) 25 2,000 units PO DAILY ##0 06/19/16 02/15/23 mcg (1,000 unit) tablet (Vitamin D3) calcium carbonate 600 mg-vitamin 2 tab PO DAILY 06/24/18 02/15/23 D3 5 mcg (200 unit) tablet (Calcium 600 + D(3)) multivitamin with minerals 1 tab PO DAILY 06/24/18 02/15/23 carvedilol 6.25 mg tablet 6.25 mg PO BID 10/23/19 02/15/23 flecainide 100 mg tablet 100 mg PO Q12H 01/25/20 02/15/23 amlodipine 2.5 mg tablet 2.5 mg PO DAILY 05/25/21 02/15/23 ferrous sulfate 325 mg (65 mg 325 mg PO Q OTHER DAY 01/09/23 02/15/23 iron) tablet Previous Rx's Medication Instructions Recorded Disabled Parking #1 ea 07/03/22 warfarin 2 mg tablet See Rx Instructions .Route 09/03/22 .COMPLEX #90 tabs tiotropium bromide 18 mcg capsule 1 cap inhalation DAILY #90 12/04/22 with inhalation device inhalations furosemide 20 mg tablet (Lasix) 20 mg PO QAM #30 tabs 01/24/23 furosemide 40 mg tablet 40 mg PO QAM #30 tabs 02/06/23 Allergies Allergy/AdvReac Type Severity Reaction Status Date / Time No Known Drug Allergies Allergy Verified 02/15/23 11:27 Review of Systems <Fuad Barillas PA-C - Last Filed: 03/05/23 13:08> Review of Systems Narrative: GENERAL: Denies chills, fatigue, malaise, fever, sweats. HEENT: Reports right forehead pain. Denies sinus pain, ear pain, sore throat, difficulty swallowing, dizziness. RESPIRATORY: Denies dyspnea, cough, wheezing, hemoptysis, sputum. CARDIOVASCULAR: Denies chest pain, palpitations, orthopnea, edema, GASTROINTESTINAL: Denies nausea, vomiting, abdominal pain, diarrhea, constipation, melena. : Denies dysuria, frequency, incontinence, hematuria, urinary retention. MUSCULOSKELETAL: denies weakness, joint pain, or bony pain SKIN: Denies rash, skin lesions, or other NEUROLOGIC: Denies weakness, headache, numbness, change in speech, confusion, seizures, incoordination. PSYCHIATRIC: No concerning psychosocial issues. 12 point review of systems is negative except for those stated above Patient History <Fuad Barillas PA-C - Last Filed: 03/05/23 13:08> Medical History Easy bruisability History of cardioversion Anticoagulation goal of INR 2.0 to 2.5 Raynauds syndrome (12/14/10) Atrial fibrillation with RVR COPD (chronic obstructive pulmonary disease) Uterine cancer (1994) Ovarian cancer (1994) Osteoporosis (2015) Osteoarthritis Atrial fibrillation (2013) Hypertension Lung cancer (2006) Surgical History Anesthesia History of bilateral salpingo-oophorectomy (BSO) History of breast augmentation (1992) History of hip replacement (01/2013) History of oophorectomy (1994) History of pneumonectomy (05/23/08) Status post hysterectomy (1994) Family History Father Hypertension Prostate cancer Grandfather Stroke Grandmother Diabetes mellitus Mother Diabetes mellitus, type II Hypertension Stroke Grandfather No problems noted. Grandmother No problems noted. Social History marital status: unmarried,single household members: none lives independently: Yes pets and animals: Yes education level: college occupational status: other Smoking Status: Former smoker Tobacco: How many years used: 19 second hand exposure: No alcohol intake: current substance use type: does not use Smoking Status: Former smoker alcohol intake frequency: holidays/special occasions only Substance Use Type: does not use Exam <Fuad Barillas PA-C - Last Filed: 03/05/23 13:08> Narrative Exam Narrative: GENERAL: Well-developed patient, in mild distress. HEAD: Atraumatic. Normocephalic. EYES: Pupils equal round and reactive. Extraocular motions intact. No scleral icterus. No injection or drainage. ENT: Nose without bleeding, purulent drainage. Throat without erythema, tonsillar hypertrophy or exudate. Airway patent. NECK: Trachea midline. Non tender CARDIOVASCULAR: Regular rate and rhythm without murmurs, gallops, or rubs. RESPIRATORY: Clear to auscultation. Breath sounds equal bilaterally. No wheezes, rales, or rhonchi. GASTROINTESTINAL: Abdomen soft, non-tender, nondistended. EXTREMITIES: No edema or joint tenderness. BACK: Nontender without deformity or crepitance. No flank tenderness. NEURO: AOx3. Cranial nerves 2-12 intact. SKIN: Significant ecchymosis in various stages of healing across the face. Small hematoma to the right forehead. No open wounds. Initial Vital Signs Initial Vital Signs: Vital Signs Temperature 98 F 03/05/23 11:48 Pulse Rate 82 03/05/23 11:48 Respiratory Rate 20 03/05/23 11:48 Blood Pressure 154/82 H 03/05/23 11:48 Pulse Oximetry 99 03/05/23 11:48 Oxygen Delivery Method Room Air 03/05/23 11:48 <Marilyn Amaro DO - Last Filed: 03/06/23 07:50> Initial Vital Signs Initial Vital Signs: Vital Signs Temperature 98 F 03/05/23 11:48 Pulse Rate 82 03/05/23 11:48 Respiratory Rate 20 03/05/23 11:48 Blood Pressure 154/82 H 03/05/23 11:48 Pulse Oximetry 99 03/05/23 11:48 Oxygen Delivery Method Room Air 03/05/23 11:48 Course <Fuad Barillas PA-C - Last Filed: 03/05/23 13:08> Orders Ordered: ED Orders 03/05/23 11:58 CT facial bones wo con Stat CT head/brain wo con Stat 03/05/23 12:14 CT cervical spine wo con Stat Vital Signs Vital signs: Vital Signs - 8 hr 03/05/23 11:48 Temperature 98 F Pulse Rate 82 Respiratory Rate 20 Blood Pressure 154/82 H Pulse Oximetry 99 Oxygen Delivery Method Room Air <Marilyn Amaro DO - Last Filed: 03/06/23 07:50> Orders Ordered: ED Orders 03/05/23 11:58 CT facial bones wo con Stat CT head/brain wo con Stat 03/05/23 12:14 CT cervical spine wo con Stat Vital Signs Vital signs: Vital Signs - 8 hr 03/05/23 11:48 Temperature 98 F Pulse Rate 82 Respiratory Rate 20 Blood Pressure 154/82 H Pulse Oximetry 99 Oxygen Delivery Method Room Air MDM - Fall <Fuad Barillas PA-C - Last Filed: 03/05/23 13:08> Imaging Data CT - cervical spine: Radiologist's Impression: [place] [address] CT Scan Report Signed Patient: Cecille Toledo MR#: [id number] : 1940 Acct:[id number] Age/Sex: 82 / F Date of Service: 03/05/23 Loc: ED Accession Number: [id number] Procedure: CT cervical spine wo con Ordering Provider: Marilyn Amaro D.O. PROCEDURE: CT CERVICAL SPINE WO CON INDICATIONS: fall on thinners TECHNIQUE: Noncontrast 3 mm thick sections acquired from the skull base to the T4 level. Sagittal and coronal reformats were then constructed. For radiation dose reduction, the following was used: automated exposure control, adjustment of mA and/or kV according to patient size. COMPARISON: [facility], CT, CT CERVICAL SPINE WO CON, 05/11/2021, 21:17. FINDINGS: Image quality: Excellent. Bones: There is grade 2 C4 on C5 anterolisthesis. Severe degenerative changes are present throughout the cervical spine including intervertebral disc space narrowing, endplate sclerosis and osteophytosis. No acute fracture or dislocation. Soft tissues: Prevertebral soft tissues are normal in thickness. No paravertebral hematomas. No apical pneumothoraces. Right pneumonectomy is redemonstrated. IMPRESSION: 1. No acute cervical spine injury. 2. Severe degenerative change. Dictated by: Kaitlyn Salgado M.D. on 03/05/2023 at 12:31 Approved by: Kaitlyn Salgado M.D. on 03/05/2023 at 12:40 CT face : Radiologist's Impression: [place] [address] CT Scan Report Signed Patient: Cecille Toledo MR#: [id number] : 1940 Acct:[id number] Age/Sex: 82 / F Date of Service: 03/05/23 Loc: ED Accession Number: [id number] Procedure: CT facial bones wo con Ordering Provider: Marilyn Amaro D.O. PROCEDURE: CT FACIAL BONES WO CON INDICATIONS: fall on thinners TECHNIQUE: Noncontrast 2.5 mm thick axial images acquired from the mandible through the frontal sinuses, with coronal and sagittal reformatting. For radiation dose reduction, the following was used: automated exposure control, adjustment of mA and/or kV according to patient size. COMPARISON: None. FINDINGS: Image quality: Excellent. Bones and teeth: Orbital valdez are intact. Sinus valdez show no fracture or deformity. There are bilateral displaced nasal bone fractures. Visualized portions of the mandible demonstrate no fractures or subluxation. Zygomatic arches are intact. Pterygoid plates are intact. Visualized portions of the skull base and auditory canals are intact. Sinuses: Paranasal sinuses are aerated, without fluid levels, mucosal thickening, or mucoceles. Mastoid air cells are aerated. Soft tissues: There is a 2.6 x 1.4 cm right frontal subgaleal hematoma. No other soft tissue swelling, hematoma, or laceration. No unexpected radiopaque foreign bodies. Vascular: Visualized vascular structures appear normal in the absence of contrast. Bony vascular foramina and canals are intact. IMPRESSION: 1. Bilateral displaced nasal bone fractures. 2. Right frontal subgaleal hematoma. No underlying calvarial abnormality. Dictated by: Kaitlyn Salgado M.D. on 03/05/2023 at 12:40 Approved by: Kaitlyn Salgado M.D. on 03/05/2023 at 12:43 CT scan - head: Radiologist's Impression: [address] [address] [address] Scan Report Signed Patient: Cecille Toledo MR#: [id number] : 1940 Acct:[id number] Age/Sex: 82 / F Date of Service: 03/05/23 Loc: ED Accession Number: [id number] Procedure: CT head/brain wo con Ordering Provider: Marilyn Amaro D.O. PROCEDURE: CT HEAD/BRAIN WO CON INDICATIONS: fall on thinners TECHNIQUE: Noncontrast 4.5 mm thick angled axial sections acquired from the foramen magnum to the vertex, with coronal and sagittal reformats. For radiation dose reduction, the following was used: automated exposure control, adjustment of mA and/or kV according to patient size. COMPARISON: [facility], CT, CT HEAD/BRAIN WO CON, 05/11/2021, 21:17. FINDINGS: Image quality: Diagnostic. CSF spaces: Basal cisterns are patent. No extra-axial fluid collections. The ventricles are symmetric in size and shape. Brain: No intracranial bleeds or masses. There is cerebral volume loss for age, with resultant ventricular and sulcal prominence. There are periventricular and deep white matter chronic small vessel ischemic changes. There is intracranial internal carotid artery atherosclerosis. Skull and face: There is a right frontal subgaleal hematoma Calvarium and visualized facial bones appear intact, without suspicious lesions. Sinuses: Visualized sinuses and mastoids are clear. IMPRESSION: 1. Right frontal subgaleal hematoma. No underlying calvarial abnormality. 2. No acute intracranial findings. 3. Mild findings likely associated with chronic microvascular ischemia. Dictated by: Kaitlyn Salgado M.D. on 03/05/2023 at 12:46 Approved by: Kaitlyn Salgado M.D. on 03/05/2023 at 12:48 MDM Narrative Medical decision making narrative: MDM * differential diagnosis includes but not limited to fracture, intracranial bleed, vertebral fracture * Prior records reviewed: Patient was last seen in the emergency department a month ago due to CHF. History of lung cancer status post pneumonectomy in 1999 and a, CHF, COPD. History of cardioversion, Raynaud's, AFib with RVR, COPD, uterine cancer, ovarian cancer, osteoporosis, osteoarthritis, atrial fibrillation, hypertension, lung cancer. Patient was given a diuretic in the emergency department as well as discharged with instructions to follow up with the primary care provider and a prescription for Lasix. * My lab interpretation: None obtained * My imgaing interpretation: CT C-spine showed no acute findings. CT head showed no intracranial bleed. Did show a subgaleal hematoma also mentioned on face CT. Face CT showed bilateral displaced nasal bone fractures. * Clinical Decision Rules/Scores evaluated: None * Independent discussions with: None ED Course: This is a 82-year-old female presents to the emergency department due to a mechanical ground level fall about a week ago where she landed directly on her face. Patient denies any concerning signs or symptoms for any kind of intracranial bleed such as nausea, vomiting, dizziness, slurred speech or any weakness. Her neuro exam was unremarkable. CT neck showed no acute changes. CT head showed no intracranial bleed but did show a subgaleal hematoma which will be treated conservatively with compression. Face CT also showed a bilaterally displaced nasal bone fracture which was discussed with attending physician and no reduction performed. We will have her follow up with ENT. No other pain to the rest of her body. Shared Decision Making: Discussed plan with the patient was comfortable with the plan. Social Considerations: None Disposition: Discharged to home Discharge Plan Departure Patient Disposition: Home Clinical Impression: Hematoma, Closed fracture nasal bone Instructions: DI for Nose Fracture Activity Restrictions/Additional Instructions: Thank you for coming to the [facility] Emergency Department today. As we discussed your CT neck showed no evidence of any fractures. Your CT head showed no intracranial bleeds but did show the hematoma to your forehead. Please use the compression as well as ice to help with the swelling. You also have a broken nose. Please do not blow your nose and please follow up as instructions provided. Please also follow up with ENT for further management and follow up. I hope you feel better soon. Please follow up with your primary care provider within a week if your symptoms continue. If you do not have a primary care provider please contact the [facility] Resource line at [phone]. They will ask some questions about your medical history and help you get set up with a provider in the community. Prescriptions: No Action cholecalciferol (vitamin D3) [Vitamin D3] 1,000 UNIT tablet 2,000 units PO DAILY Qty: 0 carvedilol 6.25 mg tablet 6.25 mg PO BID Rx Instructions: must administer with a meal/food (DME) Disabled Parking See Rx Instructions .ROUTE .MEDSUPPLY Qty: 1 0RF Rx Instructions: I find this patient to be medically disabled and qualified for Permanent Disabled Parking as indicated, and signed, on the Accompanying Disabled Parking Application for Individuals warfarin 2 mg tablet See Rx Instructions .ROUTE .COMPLEX Qty: 90 1RF Dose Instruction: TAKE 1/2 TABLET ON SATURDAY, TAKE 1 TABLET DAILY ON ALL OTHER DAYS OF THE WEEK OR DIRECTED Rx Instructions: TAKE 1/2 TABLET ON SATURDAY, TAKE 1 TABLET DAILY ON ALL OTHER DAYS OF THE WEEK OR DIRECTED tiotropium bromide 18 mcg capsule, w/inhalation device 1 cap inhalation DAILY Qty: 90 3RF Rx Instructions: puncture 1 cap using device; one dose = 2 inhalations calcium carbonate-vitamin D3 [Calcium 600 + D(3)] 600 mg(1,500mg) -200 unit Tablet 2 tab PO DAILY multivitamin with minerals Tablet 1 tab PO DAILY furosemide [Lasix] 20 mg tablet 20 mg PO QAM Qty: 30 0RF flecainide 100 mg Tablet 100 mg PO Q12H amlodipine 2.5 mg Tablet 2.5 mg PO DAILY ferrous sulfate 325 mg (65 mg iron) tablet 325 mg PO Q OTHER DAY furosemide 40 mg tablet 40 mg PO QAM Qty: 30 0RF Referrals: Bradley Grullon MD [Physician] - (f/u nasal bone fracture, thank you! ) Rosio Puckett MD [Primary Care Provider] - Stand Alone Forms: Patient Portal/API ED Sign-out <Marilyn Amaro DO - Last Filed: 03/06/23 07:50> Cosign ED Attending Cosignature Attestation: I was available for consultation.
[2023-03-05 13:18] VITALS: BP 138/87; PULSE 95; RESP 18; O2SAT 96
== END 2023-03-05 13:15 | disposition home or self-care (01) ==
PROVIDERS: Emergency Provider Physician Assistant Medical; PCP Family Medicine
DX: S00.83XA Contusion of other part of head, initial encounter (principal); S02.2XXA Fracture of nasal bones, initial encounter for closed fracture; R51.9 Headache, unspecified; W18.30XA Fall on same level, unspecified, initial encounter; Z79.01 Long term (current) use of anticoagulants
CPT/HCPCS: 70450; 70486; 72125; 99283; 99284

== ENCOUNTER → 2023-03-21 10:38 | Outpatient (CLI) | payer MEDICARE, OTHER, SELFPAY ==
[2023-02-26 11:48] VITALS: BMI 19.4
[2023-03-21 11:59] LABS: BUN Creatinine Ratio 33.3 (6-22); Blood Urea Nitrogen 25 mg/dL (7-17); Calcium 9.9 mg/dL (8.4-10.2); Carbon Dioxide 37 mmol/L (22-32); Chloride 92 mmol/L (98-107); Estimated Glomerular Filt Rate > 60 mL/min (>60); Glucose 90 mg/dL (80-110); HEMOLYSIS < 15 (0-50); Sodium 134 mmol/L (137-145)
== END ==
PROVIDERS: PCP Family Medicine; Referring Provider Family Medicine; Visit Provider Family Medicine
DX: I50.9 Heart failure, unspecified (principal); E87.8 Other disorders of electrolyte and fluid balance, not elsewhere classified; I10 Essential (primary) hypertension
CPT/HCPCS: 36415; 80048

== ENCOUNTER 2023-03-22 23:21 | Emergency (ER) | payer MEDICARE, OTHER, SELFPAY ==
[2023-02-26 11:48] VITALS: BMI 19.4
[2023-03-22 23:27] VITALS: BP 183/81; PULSE 65; RESP 16; TEMP 37.1; O2SAT 95; BMI 19.8
[2023-03-22 23:28] VITALS: PULSE 69; O2SAT 95
[2023-03-22 23:30] VITALS: BP 183/81; PULSE 70; RESP 23; O2SAT 97
--- NOTE | 2023-03-22 23:33 | DI.CT.S_ITS ---
PROCEDURE: CT HEAD/BRAIN WO CON INDICATIONS: fall, head injury on blood thinners TECHNIQUE: Noncontrast 4.5 mm thick angled axial sections acquired from the foramen magnum to the vertex, with coronal and sagittal reformats. For radiation dose reduction, the following was used: automated exposure control, adjustment of mA and/or kV according to patient size. COMPARISON: [facility], CT, CT HEAD/BRAIN WO CON, 03/05/2023, 12:11. FINDINGS: Image quality: Diagnostic CSF spaces: Basal cisterns are patent. Lateral ventricles are symmetric. Volume: Vascular calcifications. Periventricular white matter disease is commonly seen with chronic microangiopathy. Volume loss is present. These findings are grch-up-luarnuft Brain: No intracranial hemorrhage. Abreu-white differentiation is grossly maintained. Craniofacial structures: Maxillofacial findings are separately dictated. IMPRESSION: No acute intracranial abnormality. Facial findings are separately dictated. Dictated by: Bryan Campbell M.D. on 03/23/2023 at 0:07 Approved by: Bryan Campbell M.D. on 03/23/2023 at 0:08
--- NOTE | 2023-03-22 23:34 | DI.CT.S_ITS ---
PROCEDURE: CT FACIAL BONES WO CON INDICATIONS: fall TECHNIQUE: Noncontrast 2.5 mm thick axial images acquired from the mandible through the frontal sinuses, with coronal and sagittal reformatting. For radiation dose reduction, the following was used: automated exposure control, adjustment of mA and/or kV according to patient size. COMPARISON: [facility], CT, CT FACIAL BONES WO CON, 03/05/2023, 12:11. FINDINGS: Image quality: Diagnostic Bones: No acute displaced fracture. Orbital valdez are intact. Nasal bone fracture is again seen, without overlying soft tissue swelling. Nasal septum spurring. Mandible is intact. Zygomatic arches and pterygoid plates are intact. No skull base fracture. Sequelae of dental disease. Sinuses and mastoids: No significant opacification. Soft tissues: Small hematoma and contusion at the right supraorbital region. No suspicious lymph nodes by size criteria. Brain: Separately dictated Spine findings are also separately dictated. IMPRESSION: Right supraorbital hematoma and contusion. No acute displaced fracture identified. Nasal bone fracture does not appear acute. Dictated by: Bryan Campbell M.D. on 03/23/2023 at 0:09 Approved by: Bryan Campbell M.D. on 03/23/2023 at 0:14
--- NOTE | 2023-03-22 23:34 | DI.CT.S_ITS ---
PROCEDURE: CT CERVICAL SPINE WO CON INDICATIONS: fall TECHNIQUE: Noncontrast 3 mm thick sections acquired from the skull base to the T4 level. Sagittal and coronal reformats were then constructed. For radiation dose reduction, the following was used: automated exposure control, adjustment of mA and/or kV according to patient size. COMPARISON: [facility], CT, CT CERVICAL SPINE WO CON, 03/05/2023, 12:11. FINDINGS: Image quality: Diagnostic Bones: Anterolisthesis of C4 on C5 again seen. Overall moderate to severe degenerative changes. Partial fusion of C3-C4. No acute vertebral body height loss. No traumatic subluxation. Soft tissues: No pathologic prevertebral soft tissue swelling. No apical pneumothorax. Mediastinal shift to the right. Right pneumonectomy changes. IMPRESSION: No displaced acute fracture or traumatic subluxation. Moderate to severe spondylosis. If there is high concern for further derangement, consider MRI evaluation. C4 on C5 anterolisthesis is unchanged from prior. Dictated by: Bryan Campbell M.D. on 03/23/2023 at 0:14 Approved by: Bryan Campbell M.D. on 03/23/2023 at 0:17
--- NOTE | 2023-03-22 23:38 | ED_ITS ---
HPI - Fall General Chief Complaint: Fall Stated Complaint: fell chunk of lip hanging / hit head Time Seen by Provider: 03/22/23 23:38 Source: patient Mode of arrival: Ambulatory History of Present Illness HPI Narrative: Patient 82-year-old female history of atrial fibrillation on warfarin presenting today with ground level fall. She reports she has not sure what she did she just tripped in the kitchen and fell. She previously had another fall a couple months ago and still has some healing bruises. However she chipped her front teeth and has a lip laceration tonight. No loss of consciousness no numbness tingling or weakness. She denies any other injury. She denies any chest pain dizziness or lightheadedness. Related Data Home Medications Medication Instructions Recorded Confirmed cholecalciferol (vitamin D3) 25 2,000 units PO DAILY ##0 06/19/16 02/15/23 mcg (1,000 unit) tablet (Vitamin D3) calcium carbonate 600 mg-vitamin 2 tab PO DAILY 06/24/18 02/15/23 D3 5 mcg (200 unit) tablet (Calcium 600 + D(3)) multivitamin with minerals 1 tab PO DAILY 06/24/18 02/15/23 carvedilol 6.25 mg tablet 6.25 mg PO BID 10/23/19 03/22/23 flecainide 100 mg tablet 100 mg PO Q12H 01/25/20 03/22/23 amlodipine 2.5 mg tablet 2.5 mg PO DAILY 05/25/21 03/22/23 ferrous sulfate 325 mg (65 mg 325 mg PO Q OTHER DAY 01/09/23 02/15/23 iron) tablet Previous Rx's Medication Instructions Recorded Disabled Parking #1 ea 07/03/22 warfarin 2 mg tablet See Rx Instructions .Route 09/03/22 .COMPLEX #90 tabs tiotropium bromide 18 mcg capsule 1 cap inhalation DAILY #90 12/04/22 with inhalation device inhalations furosemide 40 mg tablet 40 mg PO QAM #30 tabs 03/18/23 Allergies Allergy/AdvReac Type Severity Reaction Status Date / Time No Known Drug Allergies Allergy Verified 02/15/23 11:27 Patient History Medical History Easy bruisability History of cardioversion Anticoagulation goal of INR 2.0 to 2.5 Raynauds syndrome (10/06/11) Atrial fibrillation with RVR COPD (chronic obstructive pulmonary disease) Uterine cancer (1994) Ovarian cancer (1994) Osteoporosis (2015) Osteoarthritis Atrial fibrillation (2013) Hypertension Lung cancer (2006) Surgical History Anesthesia History of bilateral salpingo-oophorectomy (BSO) History of breast augmentation (1992) History of hip replacement (01/2013) History of oophorectomy (1994) History of pneumonectomy (05/23/08) Status post hysterectomy (1994) Family History Father Hypertension Prostate cancer Grandfather Stroke Grandmother Diabetes mellitus Mother Diabetes mellitus, type II Hypertension Stroke Grandfather No problems noted. Grandmother No problems noted. Social History marital status: unmarried,single household members: none lives independently: Yes pets and animals: Yes education level: college occupational status: other Smoking Status: Former smoker Tobacco: How many years used: 19 second hand exposure: No alcohol intake: current substance use type: does not use Smoking Status: Former smoker alcohol intake frequency: holidays/special occasions only Substance Use Type: does not use Exam Initial Vital Signs Initial Vital Signs: Vital Signs Temperature 98.7 F 03/22/23 23:27 Pulse Rate 65 03/22/23 23:27 Respiratory Rate 16 03/22/23 23:27 Blood Pressure 183/81 H 03/22/23 23:27 Pulse Oximetry 95 03/22/23 23:27 Oxygen Delivery Method Room Air 03/22/23 23:27 GENERAL: Well-appearing, well-nourished and in no acute distress. HEENT: Head atraumatic,EOMI, pupils reactive, flap upper lip laceration in the right, does not involve vermilion border, teeth numbers 6 and 7 missing with chipped number a no dentin exposed she reports it as a bridge CARDIOVASCULAR: Regular rate and rhythm without murmurs, rubs or gallops. RESPIRATORY: Breath sounds equal bilaterally, no wheezes rales or rhonchi. ABDOMEN: Soft, nontender. Normoactive bowel sounds all 4 quadrants. No guarding or rebound. EXTREMITIES: Normal range of motion, no clubbing or edema. Neurovascularly intact NEUROLOGICAL: Alert and oriented x4.Normal gait and speech. Cranial nerves II through XII grossly intact. SKIN: Warm, dry, no laceration, no petechiae, no rashes or lesions. Procedures Laceration Repair Laceration 1: Site: lip (upper) Side (If applicable): right Size (cm): 1 Description: flap Depth: simple, single layer Local Anesthetic: lidocaine 1% Amount of anesthesia used (mL): 1 Pre-repair: wound explored, irrigated extensively and deep structures intact Skin layer closed with: vicryl Skin layer suture size: 5-0 Number of sutures: 3 Technique: simple, interrupted Course Orders Ordered: ED Orders 03/22/23 23:33 CT head/brain wo con Stat 03/22/23 23:34 CT cervical spine wo con Stat CT facial bones wo con Stat Discontinued Medications Acetaminophen (Acetaminophen 325 Mg Tablet) 975 mg PO NOW ONE Stop: 03/23/23 00:16 Last Admin: 03/23/23 00:20 Dose: 975 mg Vital Signs Vital signs: Vital Signs - 8 hr 03/22/23 23:27 03/22/23 23:28 03/22/23 23:30 Temperature 98.7 F Pulse Rate 65 69 70 Respiratory Rate 16 23 Blood Pressure 183/81 H 183/81 H Pulse Oximetry 95 95 97 Oxygen Delivery Method Room Air Room Air 03/23/23 00:00 Temperature Pulse Rate 63 Respiratory Rate 23 Blood Pressure 183/81 H Pulse Oximetry 95 Oxygen Delivery Method Room Air MDM - Fall Imaging Data CT - cervical spine: Radiologist's Impression: PROCEDURE: CT CERVICAL SPINE WO CON INDICATIONS: fall TECHNIQUE: Noncontrast 3 mm thick sections acquired from the skull base to the T4 level. Sagittal and coronal reformats were then constructed. For radiation dose reduction, the following was used: automated exposure control, adjustment of mA and/or kV according to patient size. COMPARISON: [facility], CT, CT CERVICAL SPINE WO CON, 03/05/2023, 12:11. FINDINGS: Image quality: Diagnostic Bones: Anterolisthesis of C4 on C5 again seen. Overall moderate to severe degenerative changes. Partial fusion of C3-C4. No acute vertebral body height loss. No traumatic subluxation. Soft tissues: No pathologic prevertebral soft tissue swelling. No apical pneumothorax. Mediastinal shift to the right. Right pneumonectomy changes. IMPRESSION: No displaced acute fracture or traumatic subluxation. Moderate to severe spondylosis. If there is high concern for further derangement, consider MRI evaluation. C4 on C5 anterolisthesis is unchanged from prior. Dictated by: Bryan Campbell M.D. on 03/23/2023 at 0:14 CT facial: Radiologist's Impression: PROCEDURE: CT FACIAL BONES WO CON INDICATIONS: fall TECHNIQUE: Noncontrast 2.5 mm thick axial images acquired from the mandible through the frontal sinuses, with coronal and sagittal reformatting. For radiation dose reduction, the following was used: automated exposure control, adjustment of mA and/or kV according to patient size. COMPARISON: [facility], CT, CT FACIAL BONES WO [facility], 03/05/2023, 12:11. FINDINGS: Image quality: Diagnostic Bones: No acute displaced fracture. Orbital valdez are intact. Nasal bone fracture is again seen, without overlying soft tissue swelling. Nasal septum spurring. Mandible is intact. Zygomatic arches and pterygoid plates are intact. No skull base fracture. Sequelae of dental disease. Sinuses and mastoids: No significant opacification. Soft tissues: Small hematoma and contusion at the right supraorbital region. No suspicious lymph nodes by size criteria. Brain: Separately dictated Spine findings are also separately dictated. IMPRESSION: Right supraorbital hematoma and contusion. No acute displaced fracture identified. Nasal bone fracture does not appear acute. Dictated by: Bryan Campbell M.D. on 03/23/2023 at 0:09 MDM Narrative Medical decision making narrative: Patient 82-year-old female who presents today with fall on Coumadin. CT scan head neck and face do not show any intracranial hemorrhage fracture. Lip laceration is repaired. She will need to go visit dentist. She reports the upper teeth are bridge. At this time she has ambulatory no other sign of injury. Seems to be a mechanical fall. She overall appears very well. Discharge Plan Departure Patient Disposition: Home Clinical Impression: Laceration of lip Instructions: DI for Laceration Repair Activity Restrictions/Additional Instructions: *You have been diagnosed with fall with lip laceration *What to do: I am so sorry that you fell again today. You might have some swelling but it should go down. May try ice 20-30 minutes at a time. Put antibiotic ointment over lip 1-2 times daily. You will definitely need to follow-up with dentist in regards to your Teeth *Continue to take medications as directed Tylenol 650 mg every 4-6 hours if needed for [id number] pain *Follow up with your primary care provider in 2-3 days or call [phone] *Return to ER if you should have persistent falls increasing redness swelling pain tingling vomiting or any new, worsening or concerning symptoms Prescriptions: No Action cholecalciferol (vitamin D3) [Vitamin D3] 1,000 UNIT tablet 2,000 units PO DAILY Qty: 0 carvedilol 6.25 mg tablet 6.25 mg PO BID Rx Instructions: must administer with a meal/food (DME) Disabled Parking See Rx Instructions .ROUTE .MEDSUPPLY Qty: 1 0RF Rx Instructions: I find this patient to be medically disabled and qualified for Permanent Disabled Parking as indicated, and signed, on the Accompanying Disabled Parking Application for Individuals warfarin 2 mg tablet See Rx Instructions .ROUTE .COMPLEX Qty: 90 1RF Dose Instruction: TAKE 1/2 TABLET ON SATURDAY, TAKE 1 TABLET DAILY ON ALL OTHER DAYS OF THE WEEK OR DIRECTED Rx Instructions: TAKE 1/2 TABLET ON SATURDAY, TAKE 1 TABLET DAILY ON ALL OTHER DAYS OF THE WEEK OR DIRECTED tiotropium bromide 18 mcg capsule, w/inhalation device 1 cap inhalation DAILY Qty: 90 3RF Rx Instructions: puncture 1 cap using device; one dose = 2 inhalations furosemide 40 mg tablet 40 mg PO QAM Qty: 30 0RF calcium carbonate-vitamin D3 [Calcium 600 + D(3)] 600 mg(1,500mg) -200 unit Tablet 2 tab PO DAILY multivitamin with minerals Tablet 1 tab PO DAILY flecainide 100 mg Tablet 100 mg PO Q12H amlodipine 2.5 mg Tablet 2.5 mg PO DAILY ferrous sulfate 325 mg (65 mg iron) tablet 325 mg PO Q OTHER DAY Referrals: Rosio Puckett MD [Primary Care Provider] - Stand Alone Forms: Patient Portal/API
[2023-03-23] VITALS: BP 183/81; PULSE 63; RESP 23; O2SAT 95
[2023-03-23] MEDS: ACETAMINOPHEN 325 MG TABLET 975 MG PO (00:20)
== END 2023-03-23 00:31 | disposition home or self-care (01) ==
PROVIDERS: Emergency Provider Emergency Medicine; PCP Family Medicine
DX: S01.511A Laceration without foreign body of lip, initial encounter (principal); S09.90XA Unspecified injury of head, initial encounter; W01.0XXA Fall on same level from slipping, tripping and stumbling without subsequent striking against object, initial encounter; Z79.01 Long term (current) use of anticoagulants; Z79.899 Other long term (current) drug therapy
CPT/HCPCS: 70450; 70486; 72125; 99284

== ENCOUNTER → 2023-04-05 11:07 | Outpatient (CLI) | payer MEDICARE, OTHER, SELFPAY ==
[2023-02-26 11:48] VITALS: BMI 19.4
[2023-04-05 12:34] LABS: Add Manual Diff / Slide Review NO; Basophils Absolute Auto 0 /uL (0-100); Basophils Percent Auto 0.6 % (0-2); Eosinophils Absolute Auto 100 /uL (0-450); Eosinophils Percent Auto 1.1 % (2-4); Hematocrit 37.3 % (36-46); Hemoglobin 12.1 g/dL (12.0-16.0); Lymphocytes Absolute Auto 1200 /uL (1100-4500); Lymphocytes Percent Auto 19.6 % (25-40); Mean Corpuscular HGB Conc 32.5 % (30-36); Mean Corpuscular Hemoglobin 28.8 PG (26-34); Mean Corpuscular Volume 88.5 fL (80-100); Monocytes Absolute Auto 500 /uL (0-900); Neutrophils Absolute Auto 4200 /uL (1500-7000); Neutrophils Percent Auto 70.7 % (50-75); Platelet Count 254 X10^3/uL (150-400); Red Blood Cell Count 4.21 X10^6/uL (4.0-5.2); White Blood Cell Count 5.9 X10^3/uL (4.5-11.0)
[2023-04-05 12:45] LABS: Alanine Aminotransferase 16 IU/L (<35); Albumin Globulin Ratio 1.1 (1.0-2.8); Alkaline Phosphatase 67 U/L (38-126); Aspartate Aminotransferase 29 IU/L (14-36); BUN Creatinine Ratio 37.1 (6-22); Bilirubin Total 0.7 mg/dL (0.2-1.3); Blood Urea Nitrogen 26 mg/dL (7-17); Calcium 9.7 mg/dL (8.4-10.2); Carbon Dioxide 31 mmol/L (22-32); Chloride 96 mmol/L (98-107); Estimated Glomerular Filt Rate > 60 mL/min (>60); Globulin 3.5 g/dL (1.7-4.1); Glucose 140 mg/dL (80-110); HEMOLYSIS 18 (0-50); Potassium 3.6 mmol/L (3.4-5.1); Sodium 136 mmol/L (137-145); Total Protein 7.5 g/dL (6.3-8.2)
== END ==
PROVIDERS: PCP Family Medicine; Referring Provider Family Medicine; Visit Provider Family Medicine
DX: R06.02 Shortness of breath (principal)
CPT/HCPCS: 36415; 80053; 85025

== ENCOUNTER 2023-04-06 18:35 | Emergency (ER) | payer MEDICARE, OTHER, SELFPAY ==
[2023-02-26 11:48] VITALS: BMI 19.4
[2023-04-06] VITALS (17 sets, daily range): BP systolic 152–196; BP diastolic 77–96; PULSE 75–107; RESP 18–35; TEMP 36.9–37.2; O2SAT 85–99; BMI 19.3
--- NOTE | 2023-04-06 18:49 | DI.RAD.S_ITS ---
PROCEDURE: XR CHEST 1V INDICATIONS: chest pain TECHNIQUE: One view of the chest was acquired. COMPARISON: [facility], CT, CT ANGIO CHEST PE PROTOCOL, 01/24/2023, 12:41. [facility], CR, XR HIP W PEL IF DONE LT 2V, 04/06/2023, 18:53. [facility], CR, XR CHEST 1V, 02/06/2023, 15:15. FINDINGS: Surgical changes and devices: Prior right pneumonectomy. Right-sided postoperative clips are seen. Lungs and pleura: The right hemithorax is completely opacified. The lung is within normal limits. Mediastinum: The mediastinum is shifted to the left and appears stable compared to the prior examination. Bones and chest wall: No suspicious bony lesions. Overlying soft tissues appear unremarkable. IMPRESSION: No acute cardiopulmonary abnormality is seen. Remote prior right pneumonectomy, with shift of the mediastinum to the right. Dictated by: Javed Person M.D. on 04/06/2023 at 18:28 Approved by: Javed Person M.D. on 04/06/2023 at 18:29
--- NOTE | 2023-04-06 18:49 | DI.RAD.S_ITS ---
PROCEDURE: XR HIP W PEL IF DONE LT 2V INDICATIONS: fall, left hip pain TECHNIQUE: AP pelvis with lateral view(s) of the left hip(s). COMPARISON: [facility], CR, XR CHEST 1V, 04/06/2023, 18:53. [facility], CR, XR HIP W PEL IF DONE RT 2V, 09/17/2022, 18:17. FINDINGS: Bones: Bilateral hip arthroplasty hardware is seen, which appears intact. No fractures or dislocations. Pelvic ring appears intact. No suspicious bony lesions. Soft tissues: The visualized bowel gas pattern is normal. No suspicious soft tissue calcifications. Right pelvic clips are seen. IMPRESSION: Negative for fracture or dislocation. Intact appearing bilateral hip arthroplasty hardware. Dictated by: Javed Person M.D. on 04/06/2023 at 18:27 Approved by: Javed Person M.D. on 04/06/2023 at 18:27
[2023-04-06 19:17] LABS: COVID19 -Nasal RAPID Negative (Negative)
--- NOTE | 2023-04-06 19:21 | DI.CT.S_ITS ---
PROCEDURE: CT HEAD/BRAIN WO CON INDICATIONS: syncope TECHNIQUE: Noncontrast 4.5 mm thick angled axial sections acquired from the foramen magnum to the vertex, with coronal and sagittal reformats. For radiation dose reduction, the following was used: automated exposure control, adjustment of mA and/or kV according to patient size. COMPARISON: [facility], CR, XR HIP W PEL IF DONE LT 2V, 04/06/2023, 18:53. [facility], CR, XR CHEST 1V, 04/06/2023, 18:53. [facility], CT, CT HEAD/BRAIN WO CON, 03/05/2023, 12:11. [facility], CT, CT FACIAL BONES WO CON, 03/22/2023, 23:41. [facility], CT, CT HEAD/BRAIN WO CON, 03/22/2023, 23:41. FINDINGS: Image quality: Diagnostic. CSF spaces: Basal cisterns are patent. No extra-axial fluid collections. The ventricles are symmetric in size and shape. Brain: No intracranial bleeds or masses. There is cerebral volume loss for age, with resultant ventricular and sulcal prominence. There are periventricular and deep white matter chronic small vessel ischemic changes. There is intracranial internal carotid artery atherosclerosis. Skull and face: Scalp thickening is again seen involving the right forehead, as before. Calvarium and visualized facial bones appear intact, without suspicious lesions. Sinuses: Visualized sinuses and mastoids are clear. IMPRESSION: No acute intracranial pathology. No acute intracranial hemorrhage is seen. Stable right forehead scalp thickening. Dictated by: Javed Person M.D. on 04/06/2023 at 18:49 Approved by: Javed Person M.D. on 04/06/2023 at 18:51
[2023-04-06 19:34] LABS: Add Manual Diff / Slide Review NO; Basophils Absolute Auto 0 /uL (0-100); Basophils Percent Auto 0.6 % (0-2); Eosinophils Absolute Auto 0 /uL (0-450); Eosinophils Percent Auto 0.6 % (2-4); Hematocrit 35.9 % (36-46); Hemoglobin 11.9 g/dL (12.0-16.0); INR 2.7 (0.9-1.3); Lymphocytes Absolute Auto 1300 /uL (1100-4500); Lymphocytes Percent Auto 16.5 % (25-40); Mean Corpuscular HGB Conc 33.2 % (30-36); Mean Corpuscular Hemoglobin 28.6 PG (26-34); Mean Corpuscular Volume 86.2 fL (80-100); Monocytes Absolute Auto 800 /uL (0-900); Neutrophils Absolute Auto 5600 /uL (1500-7000); Neutrophils Percent Auto 72.3 % (50-75); Platelet Count 261 X10^3/uL (150-400); Prothrombin Time 31.3 SECONDS (9.4-12.5); Red Blood Cell Count 4.17 X10^6/uL (4.0-5.2); Red Cell Distribution Width 14.7 % (11.6-14.8); White Blood Cell Count 7.7 X10^3/uL (4.5-11.0)
[2023-04-06 19:37] LABS: PTT Partial Thromboplastin Tim 44 SECONDS (25.1-36.5)
[2023-04-06 19:41] LABS: Alanine Aminotransferase 17 IU/L (<35); Albumin Globulin Ratio 1.2 (1.0-2.8); Alkaline Phosphatase 71 U/L (38-126); Aspartate Aminotransferase 28 IU/L (14-36); BUN Creatinine Ratio 51.7 (6-22); Bilirubin Total 0.8 mg/dL (0.2-1.3); Blood Urea Nitrogen 30 mg/dL (7-17); Calcium 9.7 mg/dL (8.4-10.2); Carbon Dioxide 31 mmol/L (22-32); Chloride 97 mmol/L (98-107); Creatine Kinase 60 U/L (30-135); Estimated Glomerular Filt Rate > 60 mL/min (>60); Globulin 3.4 g/dL (1.7-4.1); Glucose 106 mg/dL (80-110); HEMOLYSIS < 15 (0-50); Lipase 56 U/L (23-300); Magnesium 1.9 mg/dL (1.6-2.3); Potassium 3.8 mmol/L (3.4-5.1); Sodium 136 mmol/L (137-145); Total Protein 7.4 g/dL (6.3-8.2)
[2023-04-06 19:52] LABS: Troponin I < 0.012 ng/mL (0.01-0.034)
--- NOTE | 2023-04-06 20:14 | ED_ITS ---
HPI - Syncope General Chief Complaint: Syncope Stated Complaint: glf, leg pain Time Seen by Provider: 04/06/23 19:00 Source: patient Mode of arrival: Wheelchair Limitations: no limitations History of Present Illness HPI narrative: Patient 82-year-old female history of atrial fibrillation on warfarin, hypertension, she presents today after ground level fall. She has actually been in the ED multiple times this is her 3rd visit since March 05 for falling. She lives alone. Today she was standing in restorationism when she fell over to her left side. She denies hitting her head or losing consciousness. No neck pain shoulder pain chest pain. Is complaining of left hip pain only while weight- bearing. She denies any palpitations dizziness or lightheadedness. All other falls were mechanical. She denies any fever chills abdominal pain, painful frequent urination or any other symptoms. At this time she should no longer be on warfarin she has had multiple falls in his at increased risk. I have discussed this with her. Related Data Home Medications Medication Instructions Recorded Confirmed cholecalciferol (vitamin D3) 25 2,000 units PO DAILY ##0 06/19/16 04/02/23 mcg (1,000 unit) tablet (Vitamin D3) calcium carbonate 600 mg-vitamin 2 tab PO DAILY 06/24/18 04/02/23 D3 5 mcg (200 unit) tablet (Calcium 600 + D(3)) multivitamin with minerals 1 tab PO DAILY 06/24/18 04/02/23 carvedilol 6.25 mg tablet 6.25 mg PO BID 10/23/19 04/02/23 flecainide 100 mg tablet 100 mg PO Q12H 01/25/20 04/02/23 amlodipine 2.5 mg tablet 2.5 mg PO DAILY 05/25/21 04/02/23 ferrous sulfate 325 mg (65 mg 325 mg PO Q OTHER DAY 01/09/23 04/02/23 iron) tablet Previous Rx's Medication Instructions Recorded Disabled Parking #1 ea 07/03/22 warfarin 2 mg tablet See Rx Instructions .Route 09/03/22 .COMPLEX #90 tabs tiotropium bromide 18 mcg capsule 1 cap inhalation DAILY #90 12/04/22 with inhalation device inhalations furosemide 40 mg tablet 40 mg PO QAM #30 tabs 03/18/23 Allergies Allergy/AdvReac Type Severity Reaction Status Date / Time No Known Drug Allergies Allergy Verified 04/02/23 09:12 Patient History Medical History Easy bruisability History of cardioversion Anticoagulation goal of INR 2.0 to 2.5 Raynauds syndrome (12/14/10) Atrial fibrillation with RVR COPD (chronic obstructive pulmonary disease) Uterine cancer (1994) Ovarian cancer (1994) Osteoporosis (2015) Osteoarthritis Atrial fibrillation (2013) Hypertension Lung cancer (2006) Surgical History Anesthesia History of bilateral salpingo-oophorectomy (BSO) History of breast augmentation (1992) History of hip replacement (01/2013) History of oophorectomy (1994) History of pneumonectomy (05/23/08) Status post hysterectomy (1994) Family History Father Hypertension Prostate cancer Grandfather Stroke Grandmother Diabetes mellitus Mother Diabetes mellitus, type II Hypertension Stroke Grandfather No problems noted. Grandmother No problems noted. Social History marital status: unmarried,single household members: none lives independently: Yes pets and animals: Yes education level: college occupational status: other Smoking Status: Former smoker Tobacco: How many years used: 19 second hand exposure: No alcohol intake: current substance use type: does not use Smoking Status: Former smoker alcohol intake frequency: holidays/special occasions only Substance Use Type: does not use Exam Initial Vital Signs Initial Vital Signs: Vital Signs Temperature 98.4 F 04/06/23 18:37 Pulse Rate 80 04/06/23 18:37 Respiratory Rate 18 04/06/23 18:37 Blood Pressure 159/77 H 04/06/23 18:37 Pulse Oximetry 98 04/06/23 18:37 Oxygen Delivery Method Room Air 04/06/23 18:37 GENERAL: Alert pleasant 82-year-old female and in no acute distress. HEENT: Head atraumatic,EOMI, pupils reactive, face symmetric, moist mucous membranes CARDIOVASCULAR: Regular rate and rhythm without murmurs, rubs or gallops. RESPIRATORY: Breath sounds equal bilaterally, no wheezes rales or rhonchi. ABDOMEN: Soft, nontender. Normoactive bowel sounds all 4 quadrants. No guarding or rebound. EXTREMITIES: Normal range of motion, no clubbing or edema. Neurovascularly intact Left hip is tender with internal external rotation. Legs are of equal length. Knee is stable. No other extremity abnormalities NEUROLOGICAL: Alert and oriented x4.Normal gait and speech. SKIN: Warm, dry, no laceration, no petechiae, no rashes or lesions. Course Orders Ordered: ED Orders 04/06/23 19:20 Complete Blood Count AUTO DIFF Stat Comprehensive Metabolic Panel Stat Lipase Stat Magnesium Stat PTT Partial Thromboplastin Ashutosh Stat Prothrombin Time INR Stat Troponin & CK Cardiac Panel Stat 04/06/23 19:21 CT head/brain wo con Stat 04/06/23 20:25 CT pelvis wo con Stat 04/06/23 22:00 Consult to [facility] [employer] [facility] - Therapeutic Support Staff Stat Consult to Physical Therapy Evaluate & Treat Discontinued Medications Acetaminophen (Acetaminophen 325 Mg Tablet) 975 mg PO NOW ONE Stop: 04/06/23 22:08 Last Admin: 04/06/23 22:24 Dose: 975 mg Documented By: RACHEL Sodium Chloride (Normal Saline 0.9%) 1,000 mls @ 1,000 mls/hr IV BOLUS ONE Stop: 04/06/23 21:16 Last Infusion: 04/06/23 23:15 Dose: Infused Documented By: Admin: 04/06/23 20:59 Dose: 1,000 mls/hr Documented By: RACHEL Vital Signs Vital signs: Vital Signs - 8 hr 04/06/23 20:25 04/06/23 20:32 04/06/23 21:00 Temperature 98.9 F Pulse Rate 105 H 101 H Respiratory Rate 22 29 H Blood Pressure 157/93 H Pulse Oximetry 96 Oxygen Delivery Method 04/06/23 21:14 04/06/23 21:14 04/06/23 21:30 Temperature Pulse Rate 91 H 107 H Respiratory Rate 27 H 26 H Blood Pressure 157/93 H Pulse Oximetry 97 97 Oxygen Delivery Method 04/06/23 22:00 04/06/23 22:00 04/06/23 22:30 Temperature Pulse Rate 79 83 Respiratory Rate 27 H 29 H Blood Pressure 152/90 H Pulse Oximetry 96 96 Oxygen Delivery Method Room Air 04/06/23 22:31 04/06/23 22:31 Temperature Pulse Rate 103 H Respiratory Rate 31 H Blood Pressure 196/81 H Pulse Oximetry 97 Oxygen Delivery Method MDM - Syncope Lab Data 04/06/23 19:20 04/06/23 19:20 Labs: Lab Results 04/06/23 04/06/23 Range/Units 18:52 19:20 WBC 7.7 (4.5-11.0) X10^3/uL RBC 4.17 (4.0-5.2) X10^6/uL Hgb 11.9 L (12.0-16.0) g/dL Hct 35.9 L (36-46) % MCV 86.2 (80-100) fL MCH 28.6 (26-34) PG MCHC 33.2 (30-36) % RDW 14.7 (11.6-14.8) % Plt Count 261 (150-400) X10^3/uL Neut % (Auto) 72.3 (50-75) % Lymph % (Auto) 16.5 L (25-40) % Garrett % (Auto) 10.0 (3-14) % Eos % (Auto) 0.6 L (2-4) % Baso % (Auto) 0.6 (0-2) % Neut # (Auto) 5600 (3089-2559) /uL Lymph # (Auto) 1300 (3827-6072) /uL Garrett # (Auto) 800 (0-900) /uL Eos # (Auto) 0 (0-450) /uL Baso # (Auto) 0 (0-100) /uL PT 31.3 H (9.4-12.5) SECONDS INR 2.7 H (0.9-1.3) APTT 44 H (25.1-36.5) SECONDS Sodium 136 L (137-145) mmol/L Potassium 3.8 (3.4-5.1) mmol/L Chloride 97 L (98-107) mmol/L Carbon Dioxide 31 (22-32) mmol/L BUN 30 H (7-17) mg/dL Creatinine 0.58 (0.52-1.04) mg/dL Estimated GFR > 60 (>60) mL/min BUN/Creatinine Ratio 51.7 H (6-22) Glucose 106 (80-110) mg/dL Calcium 9.7 (8.4-10.2) mg/dL Magnesium 1.9 (1.6-2.3) mg/dL Total Bilirubin 0.8 (0.2-1.3) mg/dL AST 28 (14-36) IU/L ALT 17 (<35) IU/L Alkaline Phosphatase 71 (38-126) U/L Total Creatine Kinase 60 (30-135) U/L Troponin I < 0.012 (0.01-0.034) ng/mL Total Protein 7.4 (6.3-8.2) g/dL Albumin 4.0 (3.5-5.0) g/dL Globulin 3.4 (1.7-4.1) g/dL Albumin/Globulin Ratio 1.2 (1.0-2.8) Lipase 56 (23-300) U/L SARS-CoV-2 (PCR) Negative (Negative) Urine Dip Bedside Urine Glucose Negative Bedside Urine Bilirubin - Negative Bedside Urine Ketone - Negative Urine Specific [place] 1.015 Bedside Urine Occult Blood - Negative Bedside Urine pH 7.0 Bedside Urine Protein - Negative Bedside Urine Urobilinogen - Negative Bedside Urine Nitrite - Negative Bedside Urine Leukocytes - Negative Esterase Imaging Data Chest x-ray: Radiologist's Impression: PROCEDURE: XR CHEST 1V INDICATIONS: chest pain TECHNIQUE: One view of the chest was acquired. COMPARISON: [facility], CT, CT ANGIO CHEST PE PROTOCOL, 01/24/2023, 12:41. [facility], CR, XR HIP W PEL IF DONE LT 2V, 04/06/2023, 18:53. [facility], CR, XR CHEST 1V, 02/06/2023, 15:15. FINDINGS: Surgical changes and devices: Prior right pneumonectomy. Right-sided postoperative clips are seen. Lungs and pleura: The right hemithorax is completely opacified. The lung is within normal limits. Mediastinum: The mediastinum is shifted to the left and appears stable compared to the prior examination. Bones and chest wall: No suspicious bony lesions. Overlying soft tissues appear unremarkable. IMPRESSION: No acute cardiopulmonary abnormality is seen. Remote prior right pneumonectomy, with shift of the mediastinum to the right. Dictated by: Javed Person M.D. on 04/06/2023 at 18:28 Extremity x-ray #1: Radiologist's Impression: PROCEDURE: XR HIP W PEL IF DONE LT 2V INDICATIONS: fall, left hip pain TECHNIQUE: AP pelvis with lateral view(s) of the left hip(s). COMPARISON: [facility], CR, XR CHEST 1V, 04/06/2023, 18:53. [facility], CR, XR HIP W PEL IF DONE RT 2V, 09/17/2022, 18:17. FINDINGS: Bones: Bilateral hip arthroplasty hardware is seen, which appears intact. No fractures or dislocations. Pelvic ring appears intact. No suspicious bony lesions. Soft tissues: The visualized bowel gas pattern is normal. No suspicious soft tissue calcifications. Right pelvic clips are seen. IMPRESSION: Negative for fracture or dislocation. Intact appearing bilateral hip arthroplasty hardware. Dictated by: Javed Person M.D. on 04/06/2023 at 18:27 CT scan - head: Radiologist's Impression: PROCEDURE: CT HEAD/BRAIN WO CON INDICATIONS: syncope TECHNIQUE: Noncontrast 4.5 mm thick angled axial sections acquired from the foramen magnum to the vertex, with coronal and sagittal reformats. For radiation dose reduction, the following was used: automated exposure control, adjustment of mA and/or kV according to patient size. COMPARISON: [facility], CR, XR HIP W PEL IF DONE LT 2V, 04/06/2023, 18:53. [facility], CR, XR CHEST 1V, 04/06/2023, 18:53. [facility], CT, CT HEAD/BRAIN WO CON, 03/05/2023, 12:11. [facility], CT, CT FACIAL BONES WO CON, 03/22/2023, 23:41. [facility], CT, CT HEAD/BRAIN WO CON, 03/22/2023, 23:41. FINDINGS: Image quality: Diagnostic. CSF spaces: Basal cisterns are patent. No extra-axial fluid collections. The ventricles are symmetric in size and shape. Brain: No intracranial bleeds or masses. There is cerebral volume loss for age, with resultant ventricular and sulcal prominence. There are periventricular and deep white matter chronic small vessel ischemic changes. There is intracranial internal carotid artery atherosclerosis. Skull and face: Scalp thickening is again seen involving the right forehead, as before. Calvarium and visualized facial bones appear intact, without suspicious lesions. Sinuses: Visualized sinuses and mastoids are clear. IMPRESSION: No acute intracranial pathology. No acute intracranial hemorrhage is seen. Stable right forehead scalp thickening. Dictated by: Javed Person M.D. on 04/06/2023 at 18:49 ct pelvis: Radiologist's Impression: PROCEDURE: CT PEL WO CON INDICATIONS: fall left hip pain can't weight bear TECHNIQUE: Noncontrast 3 mm axial sections acquired through the bony pelvis, with coronal and sagittal reformatting. COMPARISON: None. FINDINGS: Image quality: Excellent. Bones: Metal artifact from bilateral hip arthroplasties reduces quality of visualization over the lower half of the pelvis. Note is made of relatively severe low lumbosacral spine degenerative disc disease and facet osteoarthritis, with grade 2 anterolisthesis of L5 on S1. Soft tissues: No hematoma found. IMPRESSION: Limited quality visualization through the lower half of the pelvis due to metal artifact from bilateral hip arthroplasty procedures having been previously performed. No definite acute trauma found. Moderately severe to severe degenerative disc disease and facet osteoarthritis at L5-S1 with grade 2 anterolisthesis of L5 as a result. Dictated by: Duncan Saba M.D. on 04/06/2023 at 21:44 ECG Data Interpretation: Regular narrow rhythm or actual P wave no ST changes Repeat EKG rate 115 similar rhythm Previous EKGs are different slower more sinus MDM Narrative Medical decision making narrative: Patient 82-year-old female presents today after a 3rd or 4th falls in the last few weeks. She is complaining mostly of left hip pain. There is no fracture identified on x-ray or CT. Blood work is reviewed and overall reassuring without leukocytosis, or anemia, no electrolyte abnormality or JAMILA, troponin negative, INR is 2.7 Imaging has been reviewed and reported above EKGs reviewed-narrow complex regular rhythm no P wave possible AFib Heart arrhythmia maybe contributing to her falls. However previous falls do seem to be quite mechanical. Today she just fell she did not pass out. She is complaining of left hip pain. X-ray and CT do not show any fracture. She was given Tylenol and ultimately ambulated well with a walker. She is not a warfarin anticoagulation candidate due to frequent. It discuss risks with her. Recommended that she take a daily aspirin. I have emailed her primary care provider in regards to this decision. Discharge Plan Departure Patient Disposition: Home Clinical Impression: Acute pain of left hip Instructions: DI for Hip Pain Activity Restrictions/Additional Instructions: *You have been diagnosed with fall, left hip pain *What to do: At this time use walker at all times to help you. Need Holter monitor *Continue to take medications as directed DO NOT TAKE WARFARIN EVER AGAIN take aspirin 81 mg once a day to help prevent stroke Tylenol 650 mg every 4-6 hours if needed for [id number] pain *Follow up with your primary care provider in 2-3 days or call [phone] Patricia's office on Saturday to schedule follow-up appointment *Return to ER if you should have increasing pain confusion falling or any new, worsening or concerning symptoms Prescriptions: No Action cholecalciferol (vitamin D3) [Vitamin D3] 1,000 UNIT tablet 2,000 units PO DAILY Qty: 0 carvedilol 6.25 mg tablet 6.25 mg PO BID Rx Instructions: must administer with a meal/food (DME) Disabled Parking See Rx Instructions .ROUTE .MEDSUPPLY Qty: 1 0RF Rx Instructions: I find this patient to be medically disabled and qualified for Permanent Disabled Parking as indicated, and signed, on the Accompanying Disabled Parking Application for Individuals warfarin 2 mg tablet See Rx Instructions .ROUTE .COMPLEX Qty: 90 1RF Dose Instruction: TAKE 1/2 TABLET ON SATURDAY, TAKE 1 TABLET DAILY ON ALL OTHER DAYS OF THE WEEK OR DIRECTED Rx Instructions: TAKE 1/2 TABLET ON SATURDAY, TAKE 1 TABLET DAILY ON ALL OTHER DAYS OF THE WEEK OR DIRECTED tiotropium bromide 18 mcg capsule, w/inhalation device 1 cap inhalation DAILY Qty: 90 3RF Rx Instructions: puncture 1 cap using device; one dose = 2 inhalations furosemide 40 mg tablet 40 mg PO QAM Qty: 30 0RF calcium carbonate-vitamin D3 [Calcium 600 + D(3)] 600 mg(1,500mg) -200 unit Tablet 2 tab PO DAILY multivitamin with minerals Tablet 1 tab PO DAILY flecainide 100 mg Tablet 100 mg PO Q12H amlodipine 2.5 mg Tablet 2.5 mg PO DAILY ferrous sulfate 325 mg (65 mg iron) tablet 325 mg PO Q OTHER DAY Referrals: Rosio Puckett MD [Primary Care Provider] - Stand Alone Forms: Patient Portal/API
--- NOTE | 2023-04-06 20:25 | DI.CT.S_ITS ---
PROCEDURE: CT PEL WO CON INDICATIONS: fall left hip pain can't weight bear TECHNIQUE: Noncontrast 3 mm axial sections acquired through the bony pelvis, with coronal and sagittal reformatting. COMPARISON: None. FINDINGS: Image quality: Excellent. Bones: Metal artifact from bilateral hip arthroplasties reduces quality of visualization over the lower half of the pelvis. Note is made of relatively severe low lumbosacral spine degenerative disc disease and facet osteoarthritis, with grade 2 anterolisthesis of L5 on S1. Soft tissues: No hematoma found. IMPRESSION: Limited quality visualization through the lower half of the pelvis due to metal artifact from bilateral hip arthroplasty procedures having been previously performed. No definite acute trauma found. Moderately severe to severe degenerative disc disease and facet osteoarthritis at L5-S1 with grade 2 anterolisthesis of L5 as a result. Dictated by: Duncan Saba M.D. on 04/06/2023 at 21:44 Approved by: Duncan Saba M.D. on 04/06/2023 at 21:47
--- NOTE | 2023-04-06 20:47 | PC.NURSE ---
LITIGATION MANAGER note: Standing patient up at [facility] [place]. Patient is at minimum a 1 person assist with cane, stand and pivot. Patient complained of not being able to put weight on right leg initially, and then as we were getting patient back into bed, patient complained of not being able to put weight on left leg. Will have a second person at bedside next time for safety.
[2023-04-06] MEDS: SODIUM CHLORIDE 0.9% 1,000 ML 1000 ML IV (20:59)
[2023-04-06] MEDS: ACETAMINOPHEN 325 MG TABLET 975 MG PO (22:24)
== END 2023-04-06 23:43 | disposition home or self-care (01) ==
PROVIDERS: Emergency Provider Emergency Medicine; PCP Family Medicine
DX: M25.552 Pain in left hip (principal); R55 Syncope and collapse; R07.9 Chest pain, unspecified; W18.30XA Fall on same level, unspecified, initial encounter; Z20.822 Contact with and (suspected) exposure to COVID-19; Z79.899 Other long term (current) drug therapy
CPT/HCPCS: 36415; 70450; 71045; 72192; 73502; 80053; 81003; 82550; 83690; 83735; 84484; 85025; 85610; 85730; 87635; 93005; 99285

== ENCOUNTER 2023-04-09 13:26 | Inpatient (IN) | payer MEDICARE, OTHER, SELFPAY ==
[2023-02-26 11:48] VITALS: BMI 19.4
[2023-04-09] VITALS (75 sets, daily range): BP systolic 88–196; BP diastolic 50–92; PULSE 48–152; RESP 12–29; TEMP 36.6; O2SAT 85–98; BMI 19.3
--- NOTE | 2023-04-09 13:41 | DI.RAD.S_ITS ---
PROCEDURE: XR KNEE LT 3V INDICATIONS: pain, difficulty walking TECHNIQUE: 3 views of the knee were acquired. COMPARISON: [facility], CR, XR KNEE LT 1TO2V, 01/09/2023, 11:33. FINDINGS: Bones: No fractures or dislocations. No suspicious bony lesions. Knee arthroplasty. Soft tissues: No joint effusion. No suspicious soft tissue calcifications. IMPRESSION: No acute fracture. No osseous lesion. If symptoms and/or clinical suspicion for pathology persist, further assessment with repeat, or advanced imaging (e.g., CT, MRI, or bone scan) may be helpful for further assessment. Dictated by: Caesar Zamora M.D. on 04/09/2023 at 14:12 Approved by: Caesar Zamora M.D. on 04/09/2023 at 14:12
--- NOTE | 2023-04-09 14:28 | PC.NURSE ---
pt unable to bear weight; purewick placed pt education given.
--- NOTE | 2023-04-09 17:03 | ED.LOWEXIN ---
HPI - Extremity Injury (Lower) <Jayla Fraser, DO - Last Filed: 04/10/23 08:37> General Chief Complaint: Extremity Injury, Lower Stated Complaint: GLF, Left Knee Pain Time Seen by Provider: 04/09/23 13:34 Source: patient Mode of arrival: EMS Limitations: no limitations History of Present Illness HPI Narrative: 82-year-old female with a history of atrial fibrillation recently stopped her warfarin secondary to falls, history of lung cancer, CHF, hypertension. Patient states she was getting dressed she was bent over going to put on her shoe and felt a pop in her knee just below in the lateral tibial plateau region and has had increased pain and difficulty with ambulation even with walker. Patient states she had a knee replacement in January of 2023 has been doing very well. She did have a fall on the 06 of April. She was seen here at that time had more hip pain. She states that has been improving. She has had some bruising in the area. She states no increase in swelling other than mildly today. No warmth redness or other skin changes. She denies any other injuries. She states she is off her warfarin as of the . She denies hitting her head no neck pain, no chest pain or shortness of breath no other GI or urinary symptoms. Patient denies any new numbness tingling or weakness. She normally ambulates independently but has been using a walker the last week. She does live at home independently but has good friends who check on her and help her regularly. Related Data Home Medications Medication Instructions Recorded Confirmed cholecalciferol (vitamin D3) 25 2,000 units PO DAILY ##0 06/19/16 04/02/23 mcg (1,000 unit) tablet (Vitamin D3) calcium carbonate 600 mg-vitamin 2 tab PO DAILY 06/24/18 04/02/23 D3 5 mcg (200 unit) tablet (Calcium 600 + D(3)) multivitamin with minerals 1 tab PO DAILY 06/24/18 04/02/23 carvedilol 6.25 mg tablet 6.25 mg PO BID 10/23/19 04/02/23 flecainide 100 mg tablet 100 mg PO Q12H 01/25/20 04/02/23 amlodipine 2.5 mg tablet 2.5 mg PO DAILY 03/17/22 01/23/24 ferrous sulfate 325 mg (65 mg 325 mg PO Q OTHER DAY 01/09/23 04/02/23 iron) tablet Previous Rx's Medication Instructions Recorded Disabled Parking #1 ea 07/03/22 warfarin 2 mg tablet See Rx Instructions .Route 09/03/22 .COMPLEX #90 tabs tiotropium bromide 18 mcg capsule 1 cap inhalation DAILY #90 12/04/22 with inhalation device inhalations furosemide 40 mg tablet 40 mg PO QAM #30 tabs 03/18/23 Allergies Allergy/AdvReac Type Severity Reaction Status Date / Time No Known Drug Allergies Allergy Verified 04/09/23 13:39 Review of Systems <Jayla Fraser DO - Last Filed: 04/10/23 08:37> Review of Systems ROS Unobtainable: All systems reviewed & are unremarkable except as noted in HPI and below Patient History <Jayla Fraser DO - Last Filed: 04/10/23 08:37> Medical History Easy bruisability History of cardioversion Anticoagulation goal of INR 2.0 to 2.5 Raynauds syndrome (12/14/10) Atrial fibrillation with RVR COPD (chronic obstructive pulmonary disease) Uterine cancer (1994) Ovarian cancer (1994) Osteoporosis (2015) Osteoarthritis Atrial fibrillation (2013) Hypertension Lung cancer (2006) Surgical History Anesthesia History of pneumonectomy (05/23/08) History of oophorectomy (1994) History of hip replacement (01/2013) History of breast augmentation (1992) History of bilateral salpingo-oophorectomy (BSO) Status post hysterectomy (1994) Family History Father Hypertension Prostate cancer Grandfather Stroke Grandmother Diabetes mellitus Mother Diabetes mellitus, type II Hypertension Stroke Grandfather No problems noted. Grandmother No problems noted. Social History marital status: unmarried,single household members: none lives independently: Yes pets and animals: Yes education level: college occupational status: other Smoking Status: Former smoker Tobacco: How many years used: 19 second hand exposure: No alcohol intake: current substance use type: does not use Smoking Status: Former smoker alcohol intake frequency: holidays/special occasions only Substance Use Type: does not use Exam <Jayla Fraser DO - Last Filed: 04/10/23 08:37> Narrative Exam Narrative: GENERAL: Alert and oriented x three, thin elderly female in mild distress. HEENT: Head normocephalic, atraumatic, EOMI, pupils reactive, face symmetric, moist mucous membranes NECK: Supple, full range of motion CARDIOVASCULAR: Regular rate and rhythm without murmurs, rubs or gallops. RESPIRATORY: Breath sounds equal bilaterally, no wheezes rales or rhonchi. ABDOMEN: Soft, nontender. Normoactive bowel sounds all 4 quadrants. No guarding or rebound, rigidity, no mass : No CVA tenderness EXTREMITIES: Slightly decreased range of motion of the knee, more comfortable with flexion more uncomfortable with extension. There is some slight swelling. There is no warmth there is no erythema there is some greenish ecchymosis that appears old but no hematoma palpated. There is some slight laxity on valgus varus testing. No specific bony tenderness on palpation. Patient does not have any tenderness over the left hip. No pain with flexion of the hip. No other pain throughout the leg. No clubbing or edema. Neurovascularly intact NEUROLOGICAL: Cranial nerves II through XII grossly intact. Moving all extremities SKIN: Warm, dry, no petechiae, no rashes or lesions. Initial Vital Signs Initial Vital Signs: Vital Signs Pulse Rate 71 04/09/23 13:46 Pulse Oximetry 95 04/09/23 13:46 <Jayla Nguyen MD - Last Filed: 04/09/23 23:19> Initial Vital Signs Initial Vital Signs: Vital Signs Pulse Rate 71 04/09/23 13:46 Pulse Oximetry 95 04/09/23 13:46 Course <DO Darrell Harvey Last Filed: 04/10/23 08:37> Orders Ordered: ED Orders 04/09/23 23:55 Prothrombin Time INR Stat Acetaminophen (Acetaminophen 325 Mg Tablet) 650 mg PO Q6H PRN PRN Reason: Fever/Mild Pain (1-3) Hydrocodone Bitart/Acetaminophen (Hydrocodone/Acet 5/325 Tablet) 1 tab PO Q4H PRN PRN Reason: Pain, Moderate (4-6) Hydrocodone Bitart/Acetaminophen (Hydrocodone/Acet 5/325 Tablet) 2 tab PO Q4H PRN PRN Reason: Pain, Severe (7-10) Amlodipine Besylate (Amlodipine 5 Mg Tablet) 2.5 mg PO DAILY [facility] Carvedilol (Carvedilol 3.125 Mg Tablet) 6.25 mg PO BID [facility] Docusate Sodium (Docusate 100 Mg Capsule) 100 mg PO BID [facility] Enoxaparin Sodium (Enoxaparin 30 Mg/0.3 Ml Syringe) 30 mg SUBCUT DAILY [facility] Flecainide Acetate (Flecainide 100 Mg Tablet) 100 mg PO Q12H [facility] Sodium Chloride (Normal Saline 0.9%) 1,000 mls @ 85 mls/hr IV CONT [facility] Last Admin: 04/10/23 01:23 Dose: 85 mls/hr Documented By: AM Ipratropium [place] (Ipratropium 0.5 Mg/2.5 Ml Neb) 0.5 mg INH [id number] [facility] Last Admin: 04/10/23 08:32 Dose: 0.5 mg Ipratropium [place] (Ipratropium 0.5 Mg/2.5 Ml Neb) 0.5 mg INH RTQ2HR PRN PRN Reason: Shortness Of Breath Naloxone HCl (Naloxone 0.4 Mg/Ml Vial) 0.2 mg IV Q2MIN PRN PRN Reason: Opiate Reversal Non-Formulary Medication (Calcium Carbonate-Vitamin D3 [Calcium 600 + D(3)]) 2 tab PO DAILY [facility] Discontinued Medications Hydrocodone Bitart/Acetaminophen (Hydrocodone/Acet 5/325 Tablet) 2 tab PO NOW ONE Stop: 04/09/23 17:16 Last Admin: 04/09/23 17:29 Dose: 2 tab Documented By: SKY Amlodipine Besylate (Amlodipine 5 Mg Tablet) 2.5 mg PO NOW ONE Stop: 04/09/23 18:00 Last Admin: 04/09/23 18:56 Dose: Not Given Documented By: DANYEL Carvedilol (Carvedilol 3.125 Mg Tablet) 6.25 mg PO NOW ONE Stop: 04/09/23 18:00 Last Admin: 04/09/23 18:11 Dose: 6.25 mg Documented By: SKY Flecainide Acetate (Flecainide 100 Mg Tablet) 100 mg PO NOW ONE Stop: 04/09/23 18:00 Last Admin: 04/09/23 18:12 Dose: 100 mg Documented By: SKY Vital Signs Vital signs: Vital Signs - 8 hr 04/09/23 15:30 04/09/23 15:30 04/09/23 16:00 Pulse Rate 87 88 Respiratory Rate Blood Pressure 185/91 H Pulse Oximetry 96 97 Oxygen Delivery Method Oxygen Flow Rate 04/09/23 16:09 04/09/23 16:09 04/09/23 16:30 Pulse Rate 81 69 Respiratory Rate 20 Blood Pressure 168/74 H Pulse Oximetry 97 98 Oxygen Delivery Method Oxygen Flow Rate 04/09/23 16:31 04/09/23 16:31 04/09/23 17:00 Pulse Rate 65 Respiratory Rate Blood Pressure 191/89 H 167/91 H Pulse Oximetry 97 Oxygen Delivery Method Oxygen Flow Rate 04/09/23 17:00 04/09/23 17:30 04/09/23 17:31 Pulse Rate 92 H 88 Respiratory Rate 18 Blood Pressure 176/92 H Pulse Oximetry 97 98 Oxygen Delivery Method Nasal Cannula Oxygen Flow Rate 04/09/23 17:31 04/09/23 18:00 04/09/23 18:00 Pulse Rate 77 142 H Respiratory Rate 28 H Blood Pressure 128/77 Pulse Oximetry 96 95 Oxygen Delivery Method Oxygen Flow Rate 04/09/23 18:11 04/09/23 18:30 04/09/23 18:30 Pulse Rate 152 H 139 H Respiratory Rate 29 H Blood Pressure 128/77 107/68 Pulse Oximetry 90 L Oxygen Delivery Method Oxygen Flow Rate 04/09/23 19:00 04/09/23 19:00 04/09/23 19:04 Pulse Rate 131 H Respiratory Rate 20 Blood Pressure 102/62 88/51 L Pulse Oximetry 85 L Oxygen Delivery Method Room Air Oxygen Flow Rate 04/09/23 19:04 04/09/23 19:05 04/09/23 19:07 Pulse Rate 126 H Respiratory Rate 21 Blood Pressure 88/51 L 89/62 L Pulse Oximetry 96 Oxygen Delivery Method Nasal Cannula Oxygen Flow Rate 2 04/09/23 19:07 04/09/23 19:10 04/09/23 19:10 Pulse Rate 123 H 48 L 67 Respiratory Rate 20 21 Blood Pressure 115/58 L Pulse Oximetry 97 97 Oxygen Delivery Method Oxygen Flow Rate 04/09/23 19:12 04/09/23 19:15 04/09/23 19:15 Pulse Rate 70 Respiratory Rate 21 Blood Pressure 115/58 L 110/60 Pulse Oximetry 97 Oxygen Delivery Method Oxygen Flow Rate 04/09/23 19:20 04/09/23 19:20 04/09/23 19:25 Pulse Rate 65 62 Respiratory Rate 18 19 Blood Pressure 106/52 L Pulse Oximetry 90 L 87 L Oxygen Delivery Method Room Air Oxygen Flow Rate 04/09/23 19:25 04/09/23 19:30 04/09/23 19:30 Pulse Rate 59 L Respiratory Rate 20 Blood Pressure 99/54 L 97/50 L Pulse Oximetry 87 L Oxygen Delivery Method Nasal Cannula Oxygen Flow Rate 04/09/23 19:35 04/09/23 19:35 04/09/23 19:40 Pulse Rate 62 Respiratory Rate 26 H Blood Pressure 90/59 L 93/54 L Pulse Oximetry 93 Oxygen Delivery Method Oxygen Flow Rate 04/09/23 19:40 04/09/23 19:45 04/09/23 19:45 Pulse Rate 71 68 Respiratory Rate 29 H 20 Blood Pressure 102/57 L Pulse Oximetry 89 L 89 L Oxygen Delivery Method Room Air Oxygen Flow Rate 04/09/23 19:50 04/09/23 19:50 04/09/23 19:55 Pulse Rate 68 Respiratory Rate 19 Blood Pressure 98/51 L 90/51 L Pulse Oximetry 88 L Oxygen Delivery Method Room Air Oxygen Flow Rate 04/09/23 19:55 04/09/23 20:00 04/09/23 20:00 Pulse Rate 64 63 Respiratory Rate 19 21 Blood Pressure 97/52 L Pulse Oximetry 89 L 89 L Oxygen Delivery Method Oxygen Flow Rate 04/09/23 20:05 04/09/23 20:05 04/09/23 20:10 Pulse Rate 60 Respiratory Rate 19 Blood Pressure 92/51 L 93/52 L Pulse Oximetry 88 L Oxygen Delivery Method Oxygen Flow Rate 04/09/23 20:10 04/09/23 20:15 04/09/23 20:15 Pulse Rate 60 58 L Respiratory Rate 19 19 Blood Pressure 92/53 L Pulse Oximetry 89 L 88 L Oxygen Delivery Method Oxygen Flow Rate 04/09/23 20:20 04/09/23 20:20 04/09/23 20:25 Pulse Rate 61 Respiratory Rate 20 Blood Pressure 93/54 L 106/59 L Pulse Oximetry 89 L Oxygen Delivery Method Oxygen Flow Rate 04/09/23 20:25 04/09/23 20:30 04/09/23 20:30 Pulse Rate 65 62 Respiratory Rate 26 H 23 Blood Pressure 124/61 Pulse Oximetry 91 91 Oxygen Delivery Method Oxygen Flow Rate 04/09/23 20:35 04/09/23 20:35 04/09/23 20:40 Pulse Rate 64 64 Respiratory Rate 22 23 Blood Pressure 112/61 Pulse Oximetry 91 91 Oxygen Delivery Method Oxygen Flow Rate 04/09/23 20:40 04/09/23 20:45 04/09/23 20:45 Pulse Rate 63 Respiratory Rate 26 H Blood Pressure 114/60 101/57 L Pulse Oximetry 92 Oxygen Delivery Method Oxygen Flow Rate 04/09/23 20:50 04/09/23 20:50 04/09/23 20:55 Pulse Rate 62 Respiratory Rate 25 H Blood Pressure 102/59 L 103/65 Pulse Oximetry 93 Oxygen Delivery Method Oxygen Flow Rate 04/09/23 20:55 Pulse Rate 61 Respiratory Rate 28 H Blood Pressure Pulse Oximetry 92 Oxygen Delivery Method Room Air Oxygen Flow Rate <Jayla Nguyen MD - Last Filed: 04/09/23 23:19> Orders Ordered: ED Orders 04/09/23 23:55 Prothrombin Time INR Stat Acetaminophen (Acetaminophen 325 Mg Tablet) 650 mg PO Q6H PRN PRN Reason: Fever/Mild Pain (1-3) Hydrocodone Bitart/Acetaminophen (Hydrocodone/Acet 5/325 Tablet) 1 tab PO Q4H PRN PRN Reason: Pain, Moderate (4-6) Hydrocodone Bitart/Acetaminophen (Hydrocodone/Acet 5/325 Tablet) 2 tab PO Q4H PRN PRN Reason: Pain, Severe (7-10) Amlodipine Besylate (Amlodipine 5 Mg Tablet) 2.5 mg PO DAILY [facility] Carvedilol (Carvedilol 3.125 Mg Tablet) 6.25 mg PO BID [place] Docusate Sodium (Docusate 100 Mg Capsule) 100 mg PO BID [facility] Enoxaparin Sodium (Enoxaparin 30 Mg/0.3 Ml Syringe) 30 mg SUBCUT DAILY [facility] Flecainide Acetate (Flecainide 100 Mg Tablet) 100 mg PO Q12H [facility] Sodium Chloride (Normal Saline 0.9%) 1,000 mls @ 85 mls/hr IV CONT [facility] Last Admin: 04/10/23 01:23 Dose: 85 mls/hr Documented By: AM Ipratropium [place] (Ipratropium 0.5 Mg/2.5 Ml Neb) 0.5 mg INH [id number] [facility] Last Admin: 04/10/23 08:32 Dose: 0.5 mg Ipratropium [place] (Ipratropium 0.5 Mg/2.5 Ml Neb) 0.5 mg INH RTQ2HR PRN PRN Reason: Shortness Of Breath Naloxone HCl (Naloxone 0.4 Mg/Ml Vial) 0.2 mg IV Q2MIN PRN PRN Reason: Opiate Reversal Non-Formulary Medication (Calcium Carbonate-Vitamin D3 [Calcium 600 + D(3)]) 2 tab PO DAILY [facility] Discontinued Medications Hydrocodone Bitart/Acetaminophen (Hydrocodone/Acet 5/325 Tablet) 2 tab PO NOW ONE Stop: 04/09/23 17:16 Last Admin: 04/09/23 17:29 Dose: 2 tab Documented By: SKY Amlodipine Besylate (Amlodipine 5 Mg Tablet) 2.5 mg PO NOW ONE Stop: 04/09/23 18:00 Last Admin: 04/09/23 18:56 Dose: Not Given Documented By: DANYEL Carvedilol (Carvedilol 3.125 Mg Tablet) 6.25 mg PO NOW ONE Stop: 04/09/23 18:00 Last Admin: 04/09/23 18:11 Dose: 6.25 mg Documented By: SKY Flecainide Acetate (Flecainide 100 Mg Tablet) 100 mg PO NOW ONE Stop: 04/09/23 18:00 Last Admin: 04/09/23 18:12 Dose: 100 mg Documented By: SKY Vital Signs Vital signs: Vital Signs - 8 hr 04/09/23 15:30 04/09/23 15:30 04/09/23 16:00 Pulse Rate 87 88 Respiratory Rate Blood Pressure 185/91 H Pulse Oximetry 96 97 Oxygen Delivery Method Oxygen Flow Rate 04/09/23 16:09 04/09/23 16:09 04/09/23 16:30 Pulse Rate 81 69 Respiratory Rate 20 Blood Pressure 168/74 H Pulse Oximetry 97 98 Oxygen Delivery Method Oxygen Flow Rate 04/09/23 16:31 04/09/23 16:31 04/09/23 17:00 Pulse Rate 65 Respiratory Rate Blood Pressure 191/89 H 167/91 H Pulse Oximetry 97 Oxygen Delivery Method Oxygen Flow Rate 04/09/23 17:00 04/09/23 17:30 04/09/23 17:31 Pulse Rate 92 H 88 Respiratory Rate 18 Blood Pressure 176/92 H Pulse Oximetry 97 98 Oxygen Delivery Method Nasal Cannula Oxygen Flow Rate 04/09/23 17:31 04/09/23 18:00 04/09/23 18:00 Pulse Rate 77 142 H Respiratory Rate 28 H Blood Pressure 128/77 Pulse Oximetry 96 95 Oxygen Delivery Method Oxygen Flow Rate 04/09/23 18:11 04/09/23 18:30 04/09/23 18:30 Pulse Rate 152 H 139 H Respiratory Rate 29 H Blood Pressure 128/77 107/68 Pulse Oximetry 90 L Oxygen Delivery Method Oxygen Flow Rate 04/09/23 19:00 04/09/23 19:00 04/09/23 19:04 Pulse Rate 131 H Respiratory Rate 20 Blood Pressure 102/62 88/51 L Pulse Oximetry 85 L Oxygen Delivery Method Room Air Oxygen Flow Rate 04/09/23 19:04 04/09/23 19:05 04/09/23 19:07 Pulse Rate 126 H Respiratory Rate 21 Blood Pressure 88/51 L 89/62 L Pulse Oximetry 96 Oxygen Delivery Method Nasal Cannula Oxygen Flow Rate 2 04/09/23 19:07 04/09/23 19:10 04/09/23 19:10 Pulse Rate 123 H 48 L 67 Respiratory Rate 20 21 Blood Pressure 115/58 L Pulse Oximetry 97 97 Oxygen Delivery Method Oxygen Flow Rate 04/09/23 19:12 04/09/23 19:15 04/09/23 19:15 Pulse Rate 70 Respiratory Rate 21 Blood Pressure 115/58 L 110/60 Pulse Oximetry 97 Oxygen Delivery Method Oxygen Flow Rate 04/09/23 19:20 04/09/23 19:20 04/09/23 19:25 Pulse Rate 65 62 Respiratory Rate 18 19 Blood Pressure 106/52 L Pulse Oximetry 90 L 87 L Oxygen Delivery Method Room Air Oxygen Flow Rate 04/09/23 19:25 04/09/23 19:30 04/09/23 19:30 Pulse Rate 59 L Respiratory Rate 20 Blood Pressure 99/54 L 97/50 L Pulse Oximetry 87 L Oxygen Delivery Method Nasal Cannula Oxygen Flow Rate 04/09/23 19:35 04/09/23 19:35 04/09/23 19:40 Pulse Rate 62 Respiratory Rate 26 H Blood Pressure 90/59 L 93/54 L Pulse Oximetry 93 Oxygen Delivery Method Oxygen Flow Rate 04/09/23 19:40 04/09/23 19:45 04/09/23 19:45 Pulse Rate 71 68 Respiratory Rate 29 H 20 Blood Pressure 102/57 L Pulse Oximetry 89 L 89 L Oxygen Delivery Method Room Air Oxygen Flow Rate 04/09/23 19:50 04/09/23 19:50 04/09/23 19:55 Pulse Rate 68 Respiratory Rate 19 Blood Pressure 98/51 L 90/51 L Pulse Oximetry 88 L Oxygen Delivery Method Room Air Oxygen Flow Rate 04/09/23 19:55 04/09/23 20:00 04/09/23 20:00 Pulse Rate 64 63 Respiratory Rate 19 21 Blood Pressure 97/52 L Pulse Oximetry 89 L 89 L Oxygen Delivery Method Oxygen Flow Rate 04/09/23 20:05 04/09/23 20:05 04/09/23 20:10 Pulse Rate 60 Respiratory Rate 19 Blood Pressure 92/51 L 93/52 L Pulse Oximetry 88 L Oxygen Delivery Method Oxygen Flow Rate 04/09/23 20:10 04/09/23 20:15 04/09/23 20:15 Pulse Rate 60 58 L Respiratory Rate 19 19 Blood Pressure 92/53 L Pulse Oximetry 89 L 88 L Oxygen Delivery Method Oxygen Flow Rate 04/09/23 20:20 04/09/23 20:20 04/09/23 20:25 Pulse Rate 61 Respiratory Rate 20 Blood Pressure 93/54 L 106/59 L Pulse Oximetry 89 L Oxygen Delivery Method Oxygen Flow Rate 04/09/23 20:25 04/09/23 20:30 04/09/23 20:30 Pulse Rate 65 62 Respiratory Rate 26 H 23 Blood Pressure 124/61 Pulse Oximetry 91 91 Oxygen Delivery Method Oxygen Flow Rate 04/09/23 20:35 04/09/23 20:35 04/09/23 20:40 Pulse Rate 64 64 Respiratory Rate 22 23 Blood Pressure 112/61 Pulse Oximetry 91 91 Oxygen Delivery Method Oxygen Flow Rate 04/09/23 20:40 04/09/23 20:45 04/09/23 20:45 Pulse Rate 63 Respiratory Rate 26 H Blood Pressure 114/60 101/57 L Pulse Oximetry 92 Oxygen Delivery Method Oxygen Flow Rate 04/09/23 20:50 04/09/23 20:50 04/09/23 20:55 Pulse Rate 62 Respiratory Rate 25 H Blood Pressure 102/59 L 103/65 Pulse Oximetry 93 Oxygen Delivery Method Oxygen Flow Rate 04/09/23 20:55 Pulse Rate 61 Respiratory Rate 28 H Blood Pressure Pulse Oximetry 92 Oxygen Delivery Method Room Air Oxygen Flow Rate MDM - Extremity Injury (Lower) <Jayla Mariecammy, DO - Last Filed: 04/10/23 08:37> Lab Data 04/09/23 18:26 04/10/23 05:21 Labs: Lab Results 04/09/23 04/09/23 Range/Units 18:26 22:00 WBC 6.7 (4.5-11.0) X10^3/uL RBC 4.07 (4.0-5.2) X10^6/uL Hgb 11.5 L (12.0-16.0) g/dL Hct 35.0 L (36-46) % MCV 85.9 (80-100) fL MCH 28.3 (26-34) PG MCHC 32.9 (30-36) % RDW 15.0 H (11.6-14.8) % Plt Count 271 (150-400) X10^3/uL Neut % (Auto) 75.2 H (50-75) % Lymph % (Auto) 14.3 L (25-40) % [place] % (Auto) 9.2 (3-14) % Eos % (Auto) 0.8 L (2-4) % Baso % (Auto) 0.5 (0-2) % Neut # (Auto) 5000 (6247-8805) /uL Lymph # (Auto) 1000 L (8007-6186) /uL [place] # (Auto) 600 (0-900) /uL Eos # (Auto) 100 (0-450) /uL Baso # (Auto) 0 (0-100) /uL Sodium 136 L (137-145) mmol/L Potassium 3.7 (3.4-5.1) mmol/L Chloride 96 L (98-107) mmol/L Carbon Dioxide 34 H (22-32) mmol/L BUN 20 H (7-17) mg/dL Creatinine 0.63 (0.52-1.04) mg/dL Estimated GFR > 60 (>60) mL/min BUN/Creatinine Ratio 31.7 H (6-22) Glucose 168 H (80-110) mg/dL Lactate 1.2 (0.7-2.1) mmol/L Calcium 10.1 (8.4-10.2) mg/dL Magnesium 1.9 (1.6-2.3) mg/dL Total Bilirubin 0.9 (0.2-1.3) mg/dL AST 32 (14-36) IU/L ALT 18 (<35) IU/L Alkaline Phosphatase 73 (38-126) U/L Total Creatine Kinase 100 (30-135) U/L Troponin I < 0.012 (0.01-0.034) ng/mL NT-Pro-B Natriuret Pep 1620 H (<450) pg/mL Total Protein 7.7 (6.3-8.2) g/dL Albumin 4.1 (3.5-5.0) g/dL Globulin 3.6 (1.7-4.1) g/dL Albumin/Globulin Ratio 1.1 (1.0-2.8) Lipase 179 D (23-300) U/L Procalcitonin 0.09 (<0.5) ng/mL Urine Color Yellow Urine Appearance Clear Urine pH 7.5 (4.5-8.0) Ur Specific [place] 1.010 (1.000-1.035) Urine Protein Negative (Negative) Urine Glucose (UA) Negative (Negative) g/dL Urine Ketones Negative (NEGATIVE) Urine Occult Blood Negative (Negative) Urine Nitrate Negative (Negative) Urine Bilirubin Negative (NEGATIVE) Urine Urobilinogen 0.2 (0.2) E.U./dL Ur Leukocyte Esterase Negative (NEGATIVE) Urine RBC None seen (0-5/HPF) Urine WBC None seen (0-5/HPF) Ur Squamous Epith Cells 0-1 /hpf (0-5/HPF) Urine Bacteria None seen (None) Ur Culture Indicated? Cult not indicated Vol Urine Centrifuged 10ml (spun) Imaging Data Extremity x-ray #1: Radiologist's Impression: Cecille Toledo?(Pat)??82??F??1940 ? Allergy/Adv: No Known Drug Allergies (More??) Close Knee X-Ray (Signed) Zamora,Muneer - 04/09/[address] (Signed) Duncan Saba - 04/06/[address] (Signed) Naya,Javed - 04/06/23 Hip X-Ray (Signed) Naya,Javed - 04/06/23 Chest X-Ray (Signed) [place],Javed - 04/06/[address] (Signed) Adrian,Bryan - 03/22/[address] (Signed) Adrian,Bryan - 03/22/[address] (Signed) Adrian,Bryan - 03/22/[address] (Signed) Kiviat,Kaitlyn - 03/05/[address] (Signed) Kiviat,Kaitlyn - 03/05/[address] (Signed) Kiviat,Kaitlyn - 03/05/23 Chest X-Ray (Signed) Kiviat,Kaitlyn - 02/06/23 Chest CTA (Signed) Og Davis - 01/24/23 Vascular Ultrasound (Signed) Agusto Hughes - 01/23/23 Telemetry Strips 01/09/23 Knee X-Ray (Signed) Beni Cobos - 01/09/23 Echocardiogram Ultrasound (Signed) Javon Kwok - 12/31/22 Bone Densitometry (Signed) Matthew Earl - 12/20/22 Hip X-Ray (Signed) Adrian,Bryan - 09/17/22 Chest X-Ray (Signed) Kam Owens - 07/18/22 Hip X-Ray (Signed) Matthew Earl - 07/17/22 Echocardiogram Ultrasound (Signed) Ellie Hayes - 07/17/22 Hip X-Ray (Signed) Caesar Zamora - 07/17/22 Lumbar Spine MRI (Signed) Beni Cobos - 11/10/21 Lumbar Spine X-Ray (Signed) Beni Cobos - 11/06/21 Mandible X-Ray (Signed) Matthew Earl - 06/02/21 Lumbar Spine X-Ray (Signed) Lopez Joseph - 06/02/21 Face X-Ray (Signed) Matthew Earl - 06/02/[address] (Signed) Caesar Zamora - 05/11/[address] (Signed) Sven Zamorafadi - 05/11/21 Ankle X-Ray (Signed) Triston Rogel - 12/08/20 Knee MRI (Signed) Luís Pablo - 09/06/20 Knee X-Ray (Signed) Triston Rogel - 08/29/20 Mammogram Diagnostic (Signed) StoneVivienne - 05/24/20 Breast Ultrasound (Signed) Vivienne Ritter - 05/24/20 Chest X-Ray (Signed) Kaitlyn Salgado - 02/29/[address] (Signed) Javed Person - 02/29/[address] (Signed) Joanna Persone - 02/29/20 Telemetry Strips 02/29/20 Telemetry Strips 02/29/[address] (Signed) Javed Person - 02/29/20 DEXA Result 02/08/20 Bone Densitometry 02/08/20 Breast Ultrasound (Signed) Call,Ramy - 12/04/19 Mammogram, Additional Views (Signed) Call,Ramy - 12/04/19 Mammogram Screening (Signed) Jani Webb - 11/25/19 Elbow X-Ray (Signed) Og Davis - 09/06/[address] (Signed) Og Davis - 09/06/[address] (Signed) Og Davis - 09/06/19 Radiology Report (Cancelled) Ellie Hayes - 01/27/19 Myocardial Perfusion Scan Nuc Med (Signed) PaliwalVidhu - 01/27/19 Mammogram Screening (Signed) Matthew Earl - 10/28/18 Chest X-Ray (Signed) Power Alonzo - 09/09/18 Telemetry Strips 07/24/18 Echocardiogram Ultrasound (Signed) Kristen Skinner - 06/25/18 Telemetry Strips 06/25/18 Chest X-Ray (Signed) Duncan Saba - 06/25/18 Chest X-Ray (Signed) Javed Person - 06/24/18 Vascular Ultrasound (Signed) Duncan Saba - 06/24/18 DEXA Result 10/22/[address] [id number] XRay Report Signed Patient: Cecille Toledo MR#: [id number] : 1940 Acct:[id number] Age/Sex: 82 / F Date of Service: 04/09/23 Loc: ED Accession Number: [id number] Procedure: XR knee LT 3V Ordering Provider: Naveed Nguyen P.A-C PROCEDURE: XR KNEE LT 3V INDICATIONS: pain, difficulty walking TECHNIQUE: 3 views of the knee were acquired. COMPARISON: [facility], , XR KNEE LT 1TO2V, 01/09/2023, 11:33. FINDINGS: Bones: No fractures or dislocations. No suspicious bony lesions. Knee arthroplasty. Soft tissues: No joint effusion. No suspicious soft tissue calcifications. IMPRESSION: No acute fracture. No osseous lesion. If symptoms and/or clinical suspicion for pathology persist, further assessment with repeat, or advanced imaging (e.g., CT, MRI, or bone scan) may be helpful for further assessment. Dictated by: Caesar Zamora M.D. on 04/09/2023 at 14:12 Approved by: Caesar Zamora M.D. on 04/09/2023 at 14:12 [facility] Narrative Medical decision making narrative: Pleasant 82-year-old female comes in with complaint of pain in her left knee while bending over to get dressed. She states it is localized to the knee and not her hip. She did hurt her hip. She does not have any pain when palpated. Patient's x-ray overall is negative. She does have little bit effusion on examination. She does able to move with the knee does not have significant pain at the hip. We will give a dose of oral pain medication and ambulation trial. Plan was dose of pain medication, plan for ambulation trial. Patient was eating [employer] in flipped into AFib with RVR. She is asymptomatic otherwise. She has not had her evening medications she was given her carvedilol and flecainide, labs ordered. Patient recently stopped her warfarin and is not a candidate for cardioversion at this time. Other than tachycardia, she has no distress and appropriate vitals. Patient signed out to Dr. Nguyen. Patient converted with home medications, BP stable, however patient's O2 dips into mid-80s on room air. Placed on supplemental nasal cannula. patient denying shortness of breath, she does state that her baseline saturations usually hovers between 92-96%. Still unable to bear weight on her leg due to pain. With multiple negative x-rays we will order CT scan of the leg to assess for possible occult fracture. CT shows periprosthetic femoral fracture. Discussed case with orthopedic surgeon Dr. Sánchez, who reviewed the images but at this time is not certain that it will need surgery. Patient is still unable to bear weight. Dr. Sánchez requested that patient be made NPO at midnight, she will review CT imaging further tomorrow to see if operative intervention is indicated. Patient informed of CT results, in agreement with surgery <Jayla Nguyen MD - Last Filed: 04/09/23 23:19> Lab Data Labs: Lab Results 04/09/23 04/09/23 Range/Units 18:26 22:00 WBC 6.7 (4.5-11.0) X10^3/uL RBC 4.07 (4.0-5.2) X10^6/uL Hgb 11.5 L (12.0-16.0) g/dL Hct 35.0 L (36-46) % MCV 85.9 (80-100) fL MCH 28.3 (26-34) PG MCHC 32.9 (30-36) % RDW 15.0 H (11.6-14.8) % Plt Count 271 (150-400) X10^3/uL Neut % (Auto) 75.2 H (50-75) % Lymph % (Auto) 14.3 L (25-40) % [place] % (Auto) 9.2 (3-14) % Eos % (Auto) 0.8 L (2-4) % Baso % (Auto) 0.5 (0-2) % Neut # (Auto) 5000 (8275-0010) /uL Lymph # (Auto) 1000 L (9160-4702) /uL [place] # (Auto) 600 (0-900) /uL Eos # (Auto) 100 (0-450) /uL Baso # (Auto) 0 (0-100) /uL Sodium 136 L (137-145) mmol/L Potassium 3.7 (3.4-5.1) mmol/L Chloride 96 L (98-107) mmol/L Carbon Dioxide 34 H (22-32) mmol/L BUN 20 H (7-17) mg/dL Creatinine 0.63 (0.52-1.04) mg/dL Estimated GFR > 60 (>60) mL/min BUN/Creatinine Ratio 31.7 H (6-22) Glucose 168 H (80-110) mg/dL Lactate 1.2 (0.7-2.1) mmol/L Calcium 10.1 (8.4-10.2) mg/dL Magnesium 1.9 (1.6-2.3) mg/dL Total Bilirubin 0.9 (0.2-1.3) mg/dL AST 32 (14-36) IU/L ALT 18 (<35) IU/L Alkaline Phosphatase 73 (38-126) U/L Total Creatine Kinase 100 (30-135) U/L Troponin I < 0.012 (0.01-0.034) ng/mL NT-Pro-B Natriuret Pep 1620 H (<450) pg/mL Total Protein 7.7 (6.3-8.2) g/dL Albumin 4.1 (3.5-5.0) g/dL Globulin 3.6 (1.7-4.1) g/dL Albumin/Globulin Ratio 1.1 (1.0-2.8) Lipase 179 D (23-300) U/L Procalcitonin 0.09 (<0.5) ng/mL Urine Color Yellow Urine Appearance Clear Urine pH 7.5 (4.5-8.0) Ur Specific [place] 1.010 (1.000-1.035) Urine Protein Negative (Negative) Urine Glucose (UA) Negative (Negative) g/dL Urine Ketones Negative (NEGATIVE) Urine Occult Blood Negative (Negative) Urine Nitrate Negative (Negative) Urine Bilirubin Negative (NEGATIVE) Urine Urobilinogen 0.2 (0.2) E.U./dL Ur Leukocyte Esterase Negative (NEGATIVE) Urine RBC None seen (0-5/HPF) Urine WBC None seen (0-5/HPF) Ur Squamous Epith Cells 0-1 /hpf (0-5/HPF) Urine Bacteria None seen (None) Ur Culture Indicated? Cult not indicated Vol Urine Centrifuged 10ml (spun) MDM Narrative Medical decision making narrative: Pleasant 82-year-old female comes in with complaint of pain in her left knee while bending over to get dressed. She states it is localized to the knee and not her hip. She did hurt her hip. She does not have any pain when palpated. Plan was dose of pain medication, ambulation trial. Patient was eating [employer] in flipped into AFib with RVR. She is asymptomatic otherwise. She has not had her evening medications she was given her carvedilol and flecainide. Patient signed out to Dr. Nguyen. Patient converted with home medications, BP stable, however patient's O2 dips into mid-80s on room air. Placed on supplemental nasal cannula. patient denying shortness of breath, she does state that her baseline saturations usually hovers between 92-96%. Still unable to bear weight on her leg due to pain. With multiple negative x-rays we will order CT scan of the leg to assess for possible occult fracture. CT shows periprosthetic femoral fracture. Discussed case with orthopedic surgeon Dr. Sánchez, who reviewed the images but at this time is not certain that it will need surgery. Patient is still unable to bear weight. Dr. Sánchez requested that patient be made NPO at midnight, she will review CT imaging further tomorrow to see if operative intervention is indicated. Patient informed of CT results, in agreement with surgery Discharge Plan Departure Patient Disposition: Admitted As Inpatient Clinical Impression: Tania-prosthetic femoral shaft fracture, Knee pain, Unable to ambulate Admit Date/Time: 04/09/23 23:12 Admit Provider: Jani Lynch
[2023-04-09] MEDS: HYDROCODONE/ACET 5/325 TABLET 2 TAB PO (17:29)
--- NOTE | 2023-04-09 18:05 | PC.NURSE ---
pt developed Afib with RVR. Dr. Fraser aware. going to give patient her cardiac med. vss. pt reports she feels good.
[2023-04-09] MEDS: carvediloL 3.125 MG TABLET 6.25 MG PO (18:11)
[2023-04-09] MEDS: FLECAINIDE 100 MG TABLET PO (18:12)
--- NOTE | 2023-04-09 18:13 | DI.RAD.S_ITS ---
PROCEDURE: XR CHEST 1V INDICATIONS: afib rvr TECHNIQUE: One view of the chest was acquired. COMPARISON: [facility], , XR CHEST 1V, 04/06/2023, 18:53. FINDINGS: Surgical changes and devices: None. Lungs and pleura: Right pneumonectomy with volume loss and midline shift is stable. Left lung is clear. Mediastinum: Mediastinal contours appear normal. Heart size is normal. Bones and chest wall: No suspicious bony lesions. Overlying soft tissues appear unremarkable. IMPRESSION: Postsurgical changes as above. Left hemithorax is clear. Dictated by: Jonna Park M.D. on 04/09/2023 at 18:50 Approved by: Jonna Park M.D. on 04/09/2023 at 18:50
[2023-04-09 18:33] LABS: Add Manual Diff / Slide Review NO; Basophils Absolute Auto 0 /uL (0-100); Basophils Percent Auto 0.5 % (0-2); Eosinophils Absolute Auto 100 /uL (0-450); Eosinophils Percent Auto 0.8 % (2-4); Hemoglobin 11.5 g/dL (12.0-16.0); Lymphocytes Absolute Auto 1000 /uL (1100-4500); Lymphocytes Percent Auto 14.3 % (25-40); Mean Corpuscular HGB Conc 32.9 % (30-36); Mean Corpuscular Hemoglobin 28.3 PG (26-34); Mean Corpuscular Volume 85.9 fL (80-100); Monocytes Absolute Auto 600 /uL (0-900); Monocytes Percent Auto 9.2 % (3-14); Neutrophils Absolute Auto 5000 /uL (1500-7000); Neutrophils Percent Auto 75.2 % (50-75); Platelet Count 271 X10^3/uL (150-400); Red Blood Cell Count 4.07 X10^6/uL (4.0-5.2); White Blood Cell Count 6.7 X10^3/uL (4.5-11.0)
[2023-04-09 18:55] LABS: Alanine Aminotransferase 18 IU/L (<35); Albumin 4.1 g/dL (3.5-5.0); Albumin Globulin Ratio 1.1 (1.0-2.8); Alkaline Phosphatase 73 U/L (38-126); Aspartate Aminotransferase 32 IU/L (14-36); BUN Creatinine Ratio 31.7 (6-22); Bilirubin Total 0.9 mg/dL (0.2-1.3); Blood Urea Nitrogen 20 mg/dL (7-17); Calcium 10.1 mg/dL (8.4-10.2); Carbon Dioxide 34 mmol/L (22-32); Chloride 96 mmol/L (98-107); Creatine Kinase 100 U/L (30-135); Estimated Glomerular Filt Rate > 60 mL/min (>60); Globulin 3.6 g/dL (1.7-4.1); Glucose 168 mg/dL (80-110); HEMOLYSIS < 15 (0-50); Lipase 179 U/L (23-300); Magnesium 1.9 mg/dL (1.6-2.3); Potassium 3.7 mmol/L (3.4-5.1); Sodium 136 mmol/L (137-145); Total Protein 7.7 g/dL (6.3-8.2)
[2023-04-09 19:06] LABS: Troponin I < 0.012 ng/mL (0.01-0.034)
[2023-04-09 20:48] LABS: Lactate (Lactic Acid) 1.2 mmol/L (0.7-2.1)
[2023-04-09 20:57] LABS: NT-proBNP (BNP-Adult 18+) 1620 pg/mL (<450)
[2023-04-09 21:05] LABS: Procalcitonin 0.09 ng/mL (<0.5)
--- NOTE | 2023-04-09 21:35 | PC.NURSE ---
Road-test wt. bearing/ ambulation attempted with walker. Pt. unable to bear wt. on LLE secondary to 10/10 pain w/ same. Assisted onto BSC from standing position to void 300 mL clear yellow urine. Returned to semi-recumbent position in stretcher. Reports 0/10 pain LLE when immobile, 4/10 w/ LLE movement in stretcher.
--- NOTE | 2023-04-09 22:01 | DI.CT.S_ITS ---
PROCEDURE: CT LE LT W CON INDICATIONS: can't ambulate, recent fall, neg xr TECHNIQUE: Noncontrast 3 mm axial sections acquired through the bony pelvis. Additional 3 mm axial sections acquired through the symptomatic hip joint, with coronal and sagittal reformats. COMPARISON: [facility], CT, LOWER EXTREMITY W CONTRAST, 08/21/2013, 10:14. FINDINGS: Image quality: Excellent. Bones: Periprosthetic fracture through the greater trochanter of the left femur, likely extending into the femoral stem (series 8, image 53). Left total hip arthroplasty did total knee arthroplasty. Soft tissues: Large knee joint effusion. No significant left hip joint effusion. IMPRESSION: Periprosthetic fracture through the greater trochanter of the left femur. Dictated by: Kam Owens M.D. on 04/09/2023 at 22:37 Approved by: Kam Owens M.D. on 04/09/2023 at 22:40
[2023-04-09 22:26] LABS: Appearance Urine UA CLEAR; Bilirubin Urine UA NEGATIVE (NEGATIVE); Color Urine UA YELLOW; Glucose Urine UA NEGATIVE (Negative); Ketones Urine UA NEGATIVE (NEGATIVE); Leukocyte Esterase Urine UA NEGATIVE (NEGATIVE); Nitrite Urine UA NEGATIVE (Negative); Occult Blood Urine UA NEGATIVE (Negative); Protein Urine UA NEGATIVE (Negative); Urobilinogen Urine UA 0.2 E.U./dL (0.2); pH Urine UA 7.5 (4.5-8.0)
[2023-04-09 22:36] LABS: Bacteria Urine None Seen; Culture Indicated Urine Cult Not Indicated; RBC Urine None Seen (0-5/HPF); Squamous Epithelial Cell Urine 0-1 /HPF (0-5/HPF); Urine Volume 10mL (spun); WBC Urine None Seen (0-5/HPF)
--- NOTE | 2023-04-09 23:15 | PC.NURSE ---
Pt. NPO after MN for possible surgical intervention of left femur fracture. Given half egg salad sandwich, cheddar cheese block, apple sauce & water & tolerating well.
--- NOTE | 2023-04-09 23:40 | PM.CN ---
History of Present Illness Consult details Date Patient Seen: 04/10/23 Time Patient Seen: 07:50 Chief complaint: GLF, Left Knee Pain Reason for consult: periprosthetic fracture Requesting provider: Jayla Nguyen Narrative: consulted for left hip periprosthetic hip fracture (nondisplaced greater trochanter- [place] A)-- but ER note mentions significant left knee pain as well - pt also has L TKA (no fx seen) --pt has R Terence and newer L tKA (Jan 2023--- Dr. Kymberly Marquis) --patient is seen at bedside. She reports that she has had 3 falls since . Each time she states she is done some damage. She knocked her front teeth out and is wearing temporal areas. I then she had a fall on her hip. Most recently she was bending over to put her shoes and compression socks on and felt a pop and extreme pain that she would rate as 10/10 around her lateral knee. She was unable to move or weight bear on this and eventually 911 was called and she was brought by EMS to the hospital. She has had several CT scans after her falls in the ER all were negative until last night she had a CT scan that demonstrated a nondisplaced greater trochanter fracture around her left hip replacement. Interestingly the patient does not complain of hip pain today but more of proximal lateral tibia pain around her knee and notes swelling and sharp pain around her knee when she attempts to weight bear. She was weight-bearing without assistive devices until she started falling and then used walker for a few days before her most recent presentation to the hospital. She typically lives independently alone. She was previously on anticoagulation this was discontinued recently due to her falls. Meds Home Medications and Allergies Home Medications Medication Instructions Recorded Confirmed Type cholecalciferol (vitamin D3) 25 2,000 units PO DAILY ##0 06/19/16 04/02/23 History mcg (1,000 unit) tablet (Vitamin D3) calcium carbonate 600 mg-vitamin 2 tab PO DAILY 06/24/18 04/02/23 History D3 5 mcg (200 unit) tablet (Calcium 600 + D(3)) multivitamin with minerals 1 tab PO DAILY 06/24/18 04/02/23 History carvedilol 6.25 mg tablet 6.25 mg PO BID 10/23/19 04/02/23 History flecainide 100 mg tablet 100 mg PO Q12H 01/25/20 04/02/23 History amlodipine 2.5 mg tablet 2.5 mg PO DAILY 05/25/21 04/02/23 [address] #1 ea 07/03/22 04/02/23 Rx warfarin 2 mg tablet See Rx Instructions .Route 09/03/22 04/02/23 Rx .COMPLEX #90 tabs tiotropium bromide 18 mcg capsule 1 cap inhalation DAILY #90 12/04/22 04/02/23 Rx with inhalation device inhalations ferrous sulfate 325 mg (65 mg 325 mg PO Q OTHER DAY 01/09/23 04/02/23 History iron) tablet furosemide 40 mg tablet 40 mg PO QAM #30 tabs 03/18/23 04/02/23 Rx Allergies Allergy/AdvReac Type Severity Reaction Status Date / Time No Known Drug Allergies Allergy Verified 04/09/23 13:39 Review of Systems Review of Systems ROS: Yes All systems reviewed with the patient and are negative except as otherwise documented Exam Vital Signs (past 8 hours): - 04/09/23 16:00 04/09/23 16:09 04/09/23 16:09 Pulse Rate 88 81 Respiratory Rate 20 Blood Pressure 168/74 H Pulse Oximetry 97 97 Oxygen Delivery Method Oxygen Flow Rate 04/09/23 16:30 04/09/23 16:31 04/09/23 16:31 Pulse Rate 69 65 Respiratory Rate Blood Pressure 191/89 H Pulse Oximetry 98 97 Oxygen Delivery Method Oxygen Flow Rate 04/09/23 17:00 04/09/23 17:00 04/09/23 17:30 Pulse Rate 92 H 88 Respiratory Rate Blood Pressure 167/91 H Pulse Oximetry 97 98 Oxygen Delivery Method Nasal Cannula Oxygen Flow Rate 04/09/23 17:31 04/09/23 17:31 04/09/23 18:00 Pulse Rate 77 Respiratory Rate 18 Blood Pressure 176/92 H 128/77 Pulse Oximetry 96 Oxygen Delivery Method Oxygen Flow Rate 04/09/23 18:00 04/09/23 18:11 04/09/23 18:30 Pulse Rate 142 H 152 H 139 H Respiratory Rate 28 H 29 H Blood Pressure 128/77 Pulse Oximetry 95 90 L Oxygen Delivery Method Oxygen Flow Rate 04/09/23 18:30 04/09/23 19:00 04/09/23 19:00 Pulse Rate 131 H Respiratory Rate 20 Blood Pressure 107/68 102/62 Pulse Oximetry 85 L Oxygen Delivery Method Room Air Oxygen Flow Rate 04/09/23 19:04 04/09/23 19:04 04/09/23 19:05 Pulse Rate 126 H Respiratory Rate 21 Blood Pressure 88/51 L 88/51 L Pulse Oximetry 96 Oxygen Delivery Method Nasal Cannula Oxygen Flow Rate 2 04/09/23 19:07 04/09/23 19:07 04/09/23 19:10 Pulse Rate 123 H 48 L Respiratory Rate 20 Blood Pressure 89/62 L 115/58 L Pulse Oximetry 97 Oxygen Delivery Method Oxygen Flow Rate 04/09/23 19:10 04/09/23 19:12 04/09/23 19:15 Pulse Rate 67 70 Respiratory Rate 21 21 Blood Pressure 115/58 L Pulse Oximetry 97 97 Oxygen Delivery Method Oxygen Flow Rate 04/09/23 19:15 04/09/23 19:20 04/09/23 19:20 Pulse Rate 65 Respiratory Rate 18 Blood Pressure 110/60 106/52 L Pulse Oximetry 90 L Oxygen Delivery Method Oxygen Flow Rate 04/09/23 19:25 04/09/23 19:25 04/09/23 19:30 Pulse Rate 62 Respiratory Rate 19 Blood Pressure 99/54 L 97/50 L Pulse Oximetry 87 L Oxygen Delivery Method Room Air Oxygen Flow Rate 04/09/23 19:30 04/09/23 19:35 04/09/23 19:35 Pulse Rate 59 L 62 Respiratory Rate 20 26 H Blood Pressure 90/59 L Pulse Oximetry 87 L 93 Oxygen Delivery Method Nasal Cannula Oxygen Flow Rate 04/09/23 19:40 04/09/23 19:40 04/09/23 19:45 Pulse Rate 71 Respiratory Rate 29 H Blood Pressure 93/54 L 102/57 L Pulse Oximetry 89 L Oxygen Delivery Method Oxygen Flow Rate 04/09/23 19:45 04/09/23 19:50 04/09/23 19:50 Pulse Rate 68 68 Respiratory Rate 20 19 Blood Pressure 98/51 L Pulse Oximetry 89 L 88 L Oxygen Delivery Method Room Air Room Air Oxygen Flow Rate 04/09/23 19:55 04/09/23 19:55 04/09/23 20:00 Pulse Rate 64 63 Respiratory Rate 19 21 Blood Pressure 90/51 L Pulse Oximetry 89 L 89 L Oxygen Delivery Method Oxygen Flow Rate 04/09/23 20:00 04/09/23 20:05 04/09/23 20:05 Pulse Rate 60 Respiratory Rate 19 Blood Pressure 97/52 L 92/51 L Pulse Oximetry 88 L Oxygen Delivery Method Oxygen Flow Rate 04/09/23 20:10 04/09/23 20:10 04/09/23 20:15 Pulse Rate 60 Respiratory Rate 19 Blood Pressure 93/52 L 92/53 L Pulse Oximetry 89 L Oxygen Delivery Method Oxygen Flow Rate 04/09/23 20:15 04/09/23 20:20 04/09/23 20:20 Pulse Rate 58 L 61 Respiratory Rate 19 20 Blood Pressure 93/54 L Pulse Oximetry 88 L 89 L Oxygen Delivery Method Oxygen Flow Rate 04/09/23 20:25 04/09/23 20:25 04/09/23 20:30 Pulse Rate 65 Respiratory Rate 26 H Blood Pressure 106/59 L 124/61 Pulse Oximetry 91 Oxygen Delivery Method Oxygen Flow Rate 04/09/23 20:30 04/09/23 20:35 04/09/23 20:35 Pulse Rate 62 64 Respiratory Rate 23 22 Blood Pressure 112/61 Pulse Oximetry 91 91 Oxygen Delivery Method Oxygen Flow Rate 04/09/23 20:40 04/09/23 20:40 04/09/23 20:45 Pulse Rate 64 Respiratory Rate 23 Blood Pressure 114/60 101/57 L Pulse Oximetry 91 Oxygen Delivery Method Oxygen Flow Rate 04/09/23 20:45 04/09/23 20:50 04/09/23 20:50 Pulse Rate 63 62 Respiratory Rate 26 H 25 H Blood Pressure 102/59 L Pulse Oximetry 92 93 Oxygen Delivery Method Oxygen Flow Rate 04/09/23 20:55 04/09/23 20:55 04/09/23 21:00 Pulse Rate 61 62 Respiratory Rate 28 H 26 H Blood Pressure 103/65 Pulse Oximetry 92 90 L Oxygen Delivery Method Room Air Nasal Cannula Oxygen Flow Rate 04/09/23 21:06 04/09/23 21:06 04/09/23 21:11 Pulse Rate 62 Respiratory Rate 22 Blood Pressure 100/55 L 106/63 Pulse Oximetry 92 Oxygen Delivery Method Oxygen Flow Rate 04/09/23 21:11 04/09/23 21:15 04/09/23 21:15 Pulse Rate 62 60 Respiratory Rate 22 22 Blood Pressure 113/55 L Pulse Oximetry 90 L 90 L Oxygen Delivery Method Oxygen Flow Rate 04/09/23 21:20 04/09/23 21:20 04/09/23 21:25 Pulse Rate 63 58 L Respiratory Rate 20 20 Blood Pressure 111/57 L Pulse Oximetry 90 L 91 Oxygen Delivery Method Oxygen Flow Rate 04/09/23 21:25 04/09/23 21:30 04/09/23 21:30 Pulse Rate 62 Respiratory Rate 23 Blood Pressure 117/65 105/59 L Pulse Oximetry 93 Oxygen Delivery Method Oxygen Flow Rate 04/09/23 22:00 04/09/23 22:25 04/09/23 22:25 Pulse Rate 64 67 Respiratory Rate 28 H 29 H Blood Pressure 118/67 Pulse Oximetry 92 90 L Oxygen Delivery Method Oxygen Flow Rate 04/09/23 22:30 04/09/23 22:31 04/09/23 22:31 Pulse Rate 65 62 Respiratory Rate 27 H 28 H Blood Pressure 113/56 L Pulse Oximetry 90 L 90 L Oxygen Delivery Method Oxygen Flow Rate 04/09/23 22:36 04/09/23 22:36 04/09/23 22:40 Pulse Rate 64 Respiratory Rate 24 Blood Pressure 101/50 L 110/55 L Pulse Oximetry 90 L Oxygen Delivery Method Oxygen Flow Rate 04/09/23 22:40 04/09/23 22:45 04/09/23 22:45 Pulse Rate 60 60 Respiratory Rate 21 22 Blood Pressure 103/55 L Pulse Oximetry 90 L 87 L Oxygen Delivery Method Oxygen Flow Rate 04/09/23 22:50 04/09/23 22:50 04/09/23 22:55 Pulse Rate 61 Respiratory Rate 20 Blood Pressure 108/53 L 103/53 L Pulse Oximetry 86 L Oxygen Delivery Method Oxygen Flow Rate 04/09/23 22:55 04/09/23 23:00 04/09/23 23:01 Pulse Rate 60 65 Respiratory Rate 19 28 H Blood Pressure 127/57 L Pulse Oximetry 86 L 93 Oxygen Delivery Method Oxygen Flow Rate 04/09/23 23:01 Pulse Rate 65 Respiratory Rate 24 Blood Pressure Pulse Oximetry 95 Oxygen Delivery Method Oxygen Flow Rate Oxygen Delivery Method Nasal Cannula Oxygen Flow Rate 2 Narrative Exam Narrative: Alert oriented female in no acute distress excellent historian. Breathing unlabored on room air Palpable dorsalis pedis pulses Left lower extremity no deformity. There has a well healed anterior scar over the knee from her recent knee replacement. No signs of infection. There is ecchymosis and a 2+ effusion. There is no erythema. There is tenderness around the proximal lateral tibia. Demonstrates 5/5 dorsiflexion plantar flexion. She is able to demonstrate active motion 0-90 for me today. During this she also flexes her hip up to at least 70 and denies pain at her hip. Minimal soreness with the deep palpation around the greater trochanter. No ecchymosis visualized in this area. Thigh and calf compartments are soft. Grossly stable ligamentous examination to varus and valgus with the normal mechanical knee slight clunk. Objective Imaging CT scan left lower extremity hip to knee: My impression: Nondisplaced [place] a greater trochanteric fracture. There is metal artifact from left total hip replacement and left total knee replacement. Knee joint effusion Radiologist's impression: Periprosthetic fracture greater trochanter left femur likely extending the femoral stem series 8, image 53 left total hip arthroplasty left total knee arthroplasty large knee joint effusion Labs 04/09/23 18:26 04/10/23 05:21 Labs: Laboratory Results - last 24 hr 04/09/23 04/09/23 18:26 22:00 WBC 6.7 RBC 4.07 Hgb 11.5 L Hct 35.0 L MCV 85.9 MCH 28.3 MCHC 32.9 RDW 15.0 H Plt Count 271 Neut % (Auto) 75.2 H Lymph % (Auto) 14.3 L [place] % (Auto) 9.2 Eos % (Auto) 0.8 L Baso % (Auto) 0.5 Neut # (Auto) 5000 Lymph # (Auto) 1000 L [place] # (Auto) 600 Eos # (Auto) 100 Baso # (Auto) 0 Sodium 136 L Potassium 3.7 Chloride 96 L Carbon Dioxide 34 H BUN 20 H Creatinine 0.63 Estimated GFR > 60 BUN/Creatinine Ratio 31.7 H Glucose 168 H Lactate 1.2 Calcium 10.1 Magnesium 1.9 Total Bilirubin 0.9 AST 32 ALT 18 Alkaline Phosphatase 73 Total Creatine Kinase 100 Troponin I < 0.012 NT-Pro-B Natriuret Pep 1620 H Total Protein 7.7 Albumin 4.1 Globulin 3.6 Albumin/Globulin Ratio 1.1 Lipase 179 D Procalcitonin 0.09 Urine Color Yellow Urine Appearance Clear Urine pH 7.5 Ur Specific [place] 1.010 Urine Protein Negative Urine Glucose (UA) Negative Urine Ketones Negative Urine Occult Blood Negative Urine Nitrate Negative Urine Bilirubin Negative Urine Urobilinogen 0.2 Ur Leukocyte Esterase Negative Urine RBC None seen Urine WBC None seen Ur Squamous Epith Cells 0-1 /hpf Urine Bacteria None seen Ur Culture Indicated? Cult not indicated Vol Urine Centrifuged 10ml (spun) [facility] Medical History Easy bruisability History of cardioversion Anticoagulation goal of INR 2.0 to 2.5 Raynauds syndrome (12/14/10) Atrial fibrillation with RVR COPD (chronic obstructive pulmonary disease) Uterine cancer (1994) Ovarian cancer (1994) Osteoporosis (2015) Osteoarthritis Atrial fibrillation (2013) Hypertension Lung cancer (2006) Surgical History Anesthesia History of pneumonectomy (05/23/08) History of oophorectomy (1994) History of hip replacement (01/2013) History of breast augmentation (1992) History of bilateral salpingo-oophorectomy (BSO) Status post hysterectomy (1994) Family History Father Hypertension Prostate cancer Grandfather Stroke Grandmother Diabetes mellitus Mother Diabetes mellitus, type II Hypertension Stroke Grandfather No problems noted. Grandmother No problems noted. Social History marital status: unmarried,single household members: none lives independently: Yes pets and animals: Yes education level: college occupational status: other Tobacco & Substance Use Smoking Status: Former smoker Tobacco: How many years used: 19 second hand exposure: No alcohol intake: current substance use type: does not use Assessment & Plan Assessment and plan (1) Periprosthetic fracture around internal prosthetic hip joint: Qualifiers: Encounter type: initial encounter Laterality: left Qualified Code(s): M97.02XA - Periprosthetic fracture around internal prosthetic left hip joint, initial encounter Status: Acute (2) Knee effusion, left: Status: Acute (3) Painful total knee replacement, left: Qualifiers: Encounter type: initial encounter Qualified Code(s): T84.84XA - Pain due to internal orthopedic prosthetic devices, implants and grafts, initial encounter; Z96.652 - Presence of left artificial knee joint Status: Acute Plan 1. left hip nondisplaced greater troch periprosthetic fx. [place] A fx, recommend protected WB and nonopertive treatment with NO active ABDuction x 6 weeks. --must use walker for ambulation 2. Left knee painful total knee replacement and left knee effusion. No obvious fracture seen on CT scan. Recommend interval follow-up with repeat knee x-rays in 2 weeks. We will treat similar to hip with protected weight-bearing. Must use a walker. Range of motion as tolerated. Recommend ice 20 minutes on our while awake. 3. Due to mobility issues and requirement for assistive devices anticipate prison placement discharge. 4. No current operative indication. No current sign of infection. Patient may. Does not need to be NPO. Follow up in Orthopedic Clinic with the patient's orthopedic surgeon Dr. Kymberly Hough and 10-14 days for repeat x-rays hip and knee and evaluation--repeat x-rays sooner if there is any decline in function or worsening pain 5. PT/OT Time Spent With Patient Time with patient: less than 30 minutes
[2023-04-10] VITALS (13 sets, daily range): BP systolic 117–157; BP diastolic 59–79; PULSE 57–79; RESP 16–20; TEMP 35.9–36.6; O2SAT 90–98
[2023-04-10 00:22] LABS: INR 1.7 (0.9-1.3); Prothrombin Time 19.4 SECONDS (9.4-12.5)
[2023-04-10] MEDS: SODIUM CHLORIDE 0.9% 1,000 ML 85 ML IV (01:23)
[2023-04-10 05:53] LABS: BUN Creatinine Ratio 38.3 (6-22); Blood Urea Nitrogen 23 mg/dL (7-17); Calcium 9.2 mg/dL (8.4-10.2); Carbon Dioxide 32 mmol/L (22-32); Chloride 98 mmol/L (98-107); Estimated Glomerular Filt Rate > 60 mL/min (>60); Glucose 93 mg/dL (80-110); HEMOLYSIS < 15 (0-50); Potassium 3.6 mmol/L (3.4-5.1); Sodium 135 mmol/L (137-145)
--- NOTE | 2023-04-10 07:33 | PM.PN.1 ---
Subjective Subjective Interval history: That is found lying comfortably in her bed. She states that her left knee is more painful than her left hip. She is noticed bruising developing over her left knee. Denies any numbness or tingling of the left lower extremity. She is concerned about being discharged home she does live alone and she is unable to bear any weight on her left leg. Exam Vital Signs (past 8 hours): - 04/09/23 23:41 04/09/23 23:41 04/09/23 23:45 Temperature Pulse Rate 66 65 Respiratory Rate 27 H 25 H Blood Pressure 147/65 H Pulse Oximetry 97 97 Oxygen Delivery Method Oxygen Flow Rate Fraction of Inspired Oxygen 04/09/23 23:45 04/09/23 23:50 04/09/23 23:50 Temperature Pulse Rate 66 Respiratory Rate 21 Blood Pressure 124/57 L 124/58 L Pulse Oximetry 95 Oxygen Delivery Method Oxygen Flow Rate Fraction of Inspired Oxygen 04/09/23 23:55 04/09/23 23:55 04/10/23 00:51 Temperature Pulse Rate 68 73 Respiratory Rate 20 18 Blood Pressure 125/59 L Pulse Oximetry 93 90 L Oxygen Delivery Method Room Air Oxygen Flow Rate 0 Fraction of Inspired Oxygen 21 04/10/23 01:01 04/10/23 05:59 Temperature 98 F 97.8 F Pulse Rate 61 75 Respiratory Rate 18 20 Blood Pressure 120/61 156/79 H Pulse Oximetry 91 93 Oxygen Delivery Method Oxygen Flow Rate 0 Fraction of Inspired Oxygen Fraction of Inspired Oxygen 21 SaO2/FiO2 Ratio 428 Oxygen Delivery Method Room Air Oxygen Flow Rate 0 Narrative Exam Narrative: At rest patient only complains of pain over her left knee. Deep palpation into the left greater trochanter does elect mild amount of pain. Left knee: Ecchymosis developing over the MCL and LCL. Tenderness over the lateral tibial plateau. No pain along posterior thigh or calf. Skin is cool to touch. Range of motion is 10-90 degrees. No instability noted with range of motion or with stressting of MCL & LCL. Patient is able to dorsiflex and plantar flex fully at the ankle. Sensation is grossly intact to her left lower extremity. Objective Labs 04/09/23 18:26 04/10/23 05:21 Labs: Laboratory Results - last 24 hr 04/09/23 04/09/23 04/09/23 18:26 22:00 23:55 WBC 6.7 RBC 4.07 Hgb 11.5 L Hct 35.0 L MCV 85.9 MCH 28.3 MCHC 32.9 RDW 15.0 H Plt Count 271 Neut % (Auto) 75.2 H Lymph % (Auto) 14.3 L [place] % (Auto) 9.2 Eos % (Auto) 0.8 L Baso % (Auto) 0.5 Neut # (Auto) 5000 Lymph # (Auto) 1000 L [place] # (Auto) 600 Eos # (Auto) 100 Baso # (Auto) 0 PT 19.4 H D INR 1.7 H Sodium 136 L Potassium 3.7 Chloride 96 L Carbon Dioxide 34 H BUN 20 H Creatinine 0.63 Estimated GFR > 60 BUN/Creatinine Ratio 31.7 H Glucose 168 H Lactate 1.2 Calcium 10.1 Magnesium 1.9 Total Bilirubin 0.9 AST 32 ALT 18 Alkaline Phosphatase 73 Total Creatine Kinase 100 Troponin I < 0.012 NT-Pro-B Natriuret Pep 1620 H Total Protein 7.7 Albumin 4.1 Globulin 3.6 Albumin/Globulin Ratio 1.1 Lipase 179 D Procalcitonin 0.09 Urine Color Yellow Urine Appearance Clear Urine pH 7.5 Ur Specific [place] 1.010 Urine Protein Negative Urine Glucose (UA) Negative Urine Ketones Negative Urine Occult Blood Negative Urine Nitrate Negative Urine Bilirubin Negative Urine Urobilinogen 0.2 Ur Leukocyte Esterase Negative Urine RBC None seen Urine WBC None seen Ur Squamous Epith Cells 0-1 /hpf Urine Bacteria None seen Ur Culture Indicated? Cult not indicated Vol Urine Centrifuged 10ml (spun) Blood Type Antibody Screen 04/10/23 05:21 WBC RBC Hgb Hct MCV MCH MCHC RDW Plt Count Neut % (Auto) Lymph % (Auto) [place] % (Auto) Eos % (Auto) Baso % (Auto) Neut # (Auto) Lymph # (Auto) [place] # (Auto) Eos # (Auto) Baso # (Auto) PT INR Sodium 135 L Potassium 3.6 Chloride 98 Carbon Dioxide 32 BUN 23 H Creatinine 0.60 Estimated GFR > 60 BUN/Creatinine Ratio 38.3 H Glucose 93 Lactate Calcium 9.2 Magnesium Total Bilirubin AST ALT Alkaline Phosphatase Total Creatine Kinase Troponin I NT-Pro-B Natriuret Pep Total Protein Albumin Globulin Albumin/Globulin Ratio Lipase Procalcitonin Urine Color Urine Appearance Urine pH Ur Specific [place] Urine Protein Urine Glucose (UA) Urine Ketones Urine Occult Blood Urine Nitrate Urine Bilirubin Urine Urobilinogen Ur Leukocyte Esterase Urine RBC Urine WBC Ur Squamous Epith Cells Urine Bacteria Ur Culture Indicated? Vol Urine Centrifuged Blood Type A Negative Antibody Screen Negative [facility] Medical History Easy bruisability History of cardioversion Anticoagulation goal of INR 2.0 to 2.5 Raynauds syndrome (12/14/10) Atrial fibrillation with RVR COPD (chronic obstructive pulmonary disease) Uterine cancer (1994) Ovarian cancer (1994) Osteoporosis (2015) Osteoarthritis Atrial fibrillation (2013) Hypertension Lung cancer (2006) Surgical History Anesthesia History of pneumonectomy (05/23/08) History of oophorectomy (1994) History of hip replacement (01/2013) History of breast augmentation (1992) History of bilateral salpingo-oophorectomy (BSO) Status post hysterectomy (1994) Family History Father Hypertension Prostate cancer Grandfather Stroke Grandmother Diabetes mellitus Mother Diabetes mellitus, type II Hypertension Stroke Grandfather No problems noted. Grandmother No problems noted. Social History marital status: unmarried,single household members: none lives independently: Yes pets and animals: Yes education level: college occupational status: other Smoking Status: Former smoker Tobacco: How many years used: 19 second hand exposure: No alcohol intake: current substance use type: does not use Assessment & Plan Assessment & Plan narrative: Assessment left hip nondisplaced greater trochanter periprosthetic fracture. Recommend nonoperative treatment with protected weight-bearing with a walker and fall precautions. No active abduction for 6 weeks. May need to discharge to rehabilitation facility due to living status. Finally arrangements to be made by case management. Follow up with Dr. Mejía in 1-2 weeks after discharge. 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 Recommend discussing why she is having so many repeated falls the last few months.
[2023-04-10] MEDS: IPRATROPIUM 0.5 MG/2.5 ML NEB INH ×3 (08:32→19:34)
[2023-04-10] MEDS: AMLODIPINE 5 MG TABLET 2.5 MG PO (09:41)
[2023-04-10] MEDS: carvediloL 3.125 MG TABLET 6.25 MG PO ×2 (09:42→20:44)
[2023-04-10] MEDS: ENOXAPARIN 30 MG/0.3 ML SYRINGE SUBCUT (09:43)
[2023-04-10] MEDS: DOCUSATE 100 MG CAPSULE PO ×2 (09:43→20:44)
[2023-04-10] MEDS: CALCIUM CARBONATE 500 MG TAB 1000 MG PO (09:44)
[2023-04-10] MEDS: FLECAINIDE 100 MG TABLET PO ×2 (09:44→20:44)
[2023-04-10] MEDS: ACETAMINOPHEN 325 MG TABLET 650 MG PO (09:45)
[2023-04-10] MEDS: CHOLECALCIFEROL (VITAMIN D3) 400 UNIT TABLET PO (09:45)
--- NOTE | 2023-04-10 10:13 | P.HP_ITS ---
History of Present Illness <Rosio Puckett MD - Last Filed: 04/10/23 15:09> History of Present Illness Date Patient Seen: 04/10/23 Chief complaint: GLF, Left Knee Pain Narrative: Pt is an 82 y/o F w h/o falls, afib (on warfarin), here for acute onset of leg pain. On Saturday pt had a fall at [employer]. States that she was exiting the pew and fell into the isle onto her left hip. Was not in significant pain at the time but did need to have some help back to her feet. Denies hitting head, LOC, heart palpitations, or dizziness. States that she thinks she may have taken a bad step. She drove herself home later that day and then decided to drive herself to the emergency department to be check out. She did this because she noticed some dull pain at the time. ED visit (04/06/23): stopped warfarin. Hip imaging was not concerning for any acute trauma. Yesterday (04/09/23): While bending over to put her shoe on felt sudden severe pain radiating down her left thigh to her knee cap. Pain was so severe that she could not walk so called 911. Upon arrival to ED imaging significant for nondisplaced greater trochanter periprothetic fracture. Orthopedic surgery is now currently following. Denies chest pain, dizziness, heart palpitations, SOB, LOC. The pt has had 3 traumatic falls in the last month. She denies any precipitating event for any of them. She does not specifically recall tripping either though. She is uncertain why she keeps falling. She lives at home independently. <Neno Orellana - Last Filed: 04/10/23 11:05> History of Present Illness Narrative: Pt is an 82 y/o F w h/o falls, afib (on warfarin), here for acute onset of leg pain. On Saturday pt had a fall at [employer]. States that she was exiting the pew and fell into the isle onto her left hip. Was not in significant pain at the time but did need to have some help back to her feet. Denies hitting head, LOC, heart palpitations, or dizziness. States that she thinks she may have taken a bad step. She drove herself home later that day and then decided to drive herself to the emergency department to be check out. She did this because she noticed some dull pain at the time. ED visit (04/06/23): stopped warfarin. Hip imaging was not concerning for any acute trauma. Yesterday (04/09/23): While bending over to put her shoe on felt sudden severe pain radiating down her left thigh to her knee cap. Pain was so severe that she could not walk so called 911. Upon arrival to ED imaging significant for nondisplaced greater trochanter periprothetic fracture. Orthopedic surgery is now currently following. Denies chest pain, dizziness, heart palpitations, SOB, LOC. PFSH <Rosio Puckett MD - Last Filed: 04/10/23 15:09> Medical History Easy bruisability History of cardioversion Anticoagulation goal of INR 2.0 to 2.5 Raynauds syndrome (12/14/10) Atrial fibrillation with RVR COPD (chronic obstructive pulmonary disease) Uterine cancer (1994) Ovarian cancer (1994) Osteoporosis (2015) Osteoarthritis Atrial fibrillation (2013) Hypertension Lung cancer (2006) Surgical History Anesthesia History of pneumonectomy (05/23/08) History of oophorectomy (1994) History of hip replacement (01/2013) History of breast augmentation (1992) History of bilateral salpingo-oophorectomy (BSO) Status post hysterectomy (1994) Family History Father Hypertension Prostate cancer Grandfather Stroke Grandmother Diabetes mellitus Mother Diabetes mellitus, type II Hypertension Stroke Grandfather No problems noted. Grandmother No problems noted. Social History marital status: unmarried,single household members: none lives independently: Yes pets and animals: Yes education level: college occupational status: other Smoking Status: Former smoker Tobacco: How many years used: 19 second hand exposure: No alcohol intake: current substance use type: does not use Meds <Rosio Puckett MD - Last Filed: 04/10/23 15:09> Home Medications and Allergies Home Medications Medication Instructions Recorded Confirmed Type cholecalciferol (vitamin D3) 25 2,000 units PO DAILY ##0 06/19/16 04/02/23 History mcg (1,000 unit) tablet (Vitamin D3) calcium carbonate 600 mg-vitamin 2 tab PO DAILY 06/24/18 04/02/23 History D3 5 mcg (200 unit) tablet (Calcium 600 + D(3)) multivitamin with minerals 1 tab PO DAILY 06/24/18 04/02/23 History carvedilol 6.25 mg tablet 6.25 mg PO BID 10/23/19 04/02/23 History flecainide 100 mg tablet 100 mg PO Q12H 01/25/20 04/02/23 History amlodipine 2.5 mg tablet 2.5 mg PO DAILY 05/25/21 04/02/23 History Disabled Parking #1 ea 07/03/22 04/02/23 Rx warfarin 2 mg tablet See Rx Instructions .Route 09/03/22 04/02/23 Rx .COMPLEX #90 tabs tiotropium bromide 18 mcg capsule 1 cap inhalation DAILY #90 12/04/22 04/02/23 Rx with inhalation device inhalations ferrous sulfate 325 mg (65 mg 325 mg PO Q OTHER DAY 01/09/23 04/02/23 History iron) tablet furosemide 40 mg tablet 40 mg PO QAM #30 tabs 03/18/23 04/02/23 Rx Allergies Allergy/AdvReac Type Severity Reaction Status Date / Time No Known Drug Allergies Allergy Verified 04/09/23 13:39 Exam <Rosio Puckett MD - Last Filed: 04/10/23 15:09> Vital Signs (past 8 hours): - 04/10/23 05:59 04/10/23 08:00 04/10/23 08:33 Temperature 97.8 F 96.6 F L Pulse Rate 75 66 69 Respiratory Rate 20 18 20 Blood Pressure 156/79 H 157/63 H Pulse Oximetry 93 91 95 Oxygen Delivery Method Room Air Oxygen Flow Rate 0 04/10/23 09:42 Temperature Pulse Rate 69 Respiratory Rate Blood Pressure 157/63 H Pulse Oximetry Oxygen Delivery Method Oxygen Flow Rate Fraction of Inspired Oxygen 21 SaO2/FiO2 Ratio 428 Oxygen Delivery Method Room Air Oxygen Flow Rate 0 <Neno Orellana - Last Filed: 04/10/23 11:05> Narrative Exam Narrative: General: thin elderly female, in no acute distress. Able to give a complete and coherent history. Pysch: cooperative, appropriate insight and affect HEENT: Moist mucous membranes, normal sclera, EOM intact Neck: supple, full ROM Respiratory: Lungs are clear to auscultation, no wheezing no rales no rhonchi. Full and symmetrical air movement Cardiac: Regular rate and rhythm no murmurs no bruits Abdomen: Soft, nontender, good bowel tones, no flank pain Skin: Warm and dry, no rashes Neurologic: CN II-XII intact. Able to move all extremities. Left lower extremity: decreased ROM of knee and hip. Less painful with slight hip flexion. Mild swelling and ecchymosis around left knee. Mild tenderness to palpation around patella. Mild tenderness to palpation in region of left greater trochanter with no ecchymosis or gross swelling present. Objective <Rosio Puckett MD - Last Filed: 04/10/23 15:09> Labs 04/09/23 18:26 04/10/23 05:21 Labs: Laboratory Results - last 24 hr 04/09/23 04/09/23 04/09/23 18:26 22:00 23:55 WBC 6.7 RBC 4.07 Hgb 11.5 L Hct 35.0 L MCV 85.9 MCH 28.3 MCHC 32.9 RDW 15.0 H Plt Count 271 Neut % (Auto) 75.2 H Lymph % (Auto) 14.3 L [place] % (Auto) 9.2 Eos % (Auto) 0.8 L Baso % (Auto) 0.5 Neut # (Auto) 5000 Lymph # (Auto) 1000 L [place] # (Auto) 600 Eos # (Auto) 100 Baso # (Auto) 0 PT 19.4 H D INR 1.7 H Sodium 136 L Potassium 3.7 Chloride 96 L Carbon Dioxide 34 H BUN 20 H Creatinine 0.63 Estimated GFR > 60 BUN/Creatinine Ratio 31.7 H Glucose 168 H Lactate 1.2 Calcium 10.1 Magnesium 1.9 Total Bilirubin 0.9 AST 32 ALT 18 Alkaline Phosphatase 73 Total Creatine Kinase 100 Troponin I < 0.012 NT-Pro-B Natriuret Pep 1620 H Total Protein 7.7 Albumin 4.1 Globulin 3.6 Albumin/Globulin Ratio 1.1 Lipase 179 D Procalcitonin 0.09 Urine Color Yellow Urine Appearance Clear Urine pH 7.5 Ur Specific [place] 1.010 Urine Protein Negative Urine Glucose (UA) Negative Urine Ketones Negative Urine Occult Blood Negative Urine Nitrate Negative Urine Bilirubin Negative Urine Urobilinogen 0.2 Ur Leukocyte Esterase Negative Urine RBC None seen Urine WBC None seen Ur Squamous Epith Cells 0-1 /hpf Urine Bacteria None seen Ur Culture Indicated? Cult not indicated Vol Urine Centrifuged 10ml (spun) Blood Type Antibody Screen 04/10/23 05:21 WBC RBC Hgb Hct MCV MCH MCHC RDW Plt Count Neut % (Auto) Lymph % (Auto) [place] % (Auto) Eos % (Auto) Baso % (Auto) Neut # (Auto) Lymph # (Auto) [place] # (Auto) Eos # (Auto) Baso # (Auto) PT INR Sodium 135 L Potassium 3.6 Chloride 98 Carbon Dioxide 32 BUN 23 H Creatinine 0.60 Estimated GFR > 60 BUN/Creatinine Ratio 38.3 H Glucose 93 Lactate Calcium 9.2 Magnesium Total Bilirubin AST ALT Alkaline Phosphatase Total Creatine Kinase Troponin I NT-Pro-B Natriuret Pep Total Protein Albumin Globulin Albumin/Globulin Ratio Lipase Procalcitonin Urine Color Urine Appearance Urine pH Ur Specific [place] Urine Protein Urine Glucose (UA) Urine Ketones Urine Occult Blood Urine Nitrate Urine Bilirubin Urine Urobilinogen Ur Leukocyte Esterase Urine RBC Urine WBC Ur Squamous Epith Cells Urine Bacteria Ur Culture Indicated? Vol Urine Centrifuged Blood Type A Negative Antibody Screen Negative Assessment & Plan <Rosio Puckett MD - Last Filed: 04/10/23 15:09> Assessment and plan (1) Acute pain of left hip: Status: Acute (2) Fall: Qualifiers: Encounter type: subsequent encounter Qualified Code(s): W19.XXXD - Unspecified fall, subsequent encounter Status: Acute Plan #non-displaced greater trochanter periprosthetic fracture. Continues to have significant pain in left hip and knee. Discussed that with current fracutre no surgery is indicated at this time according to orthopedic surgery. Appreciate recs below. -Orthopedic surgery recs (full note 04/10/23): nonoperative treatment with protected weight-bearing with a walker and fall precautions. No active abduction for 6 weeks. Follow up with Dr. Mejía in 1-2 weeks after discharge. -Continue to work with PT -case management f/u for SNF/rehab placement #pain management #elevated blood pressure Currently moderately well managed. Acutely elevated blood pressure likely due to underlying pain. -continue hydrocodone/acetaminophen 5/325 mg po q4 prn for pain -For refractory pain: oxycodone 5 mg (max 10) po q4 prn for pain - will continue to monitor BPs #atrial fibrillation Currently rate controlled -Continue home medications -Holding Coumadin due to recurrent falls -Aspirin daily #Recurrent falls Unclear etiology. Most likely mechanical, however cannot rule-out other cause. Pt without associated chest pain, SOB to suggest cardiac etiology. No suggestive symptoms of seizure. No acute neurological findings on exam, however due to acute weakness associated with falls will work-up for possible CVA contributing. - MRI brain today FEN: General diet Code: Full code DVT ppx: Lovenox Dispo: Pending stabilization of pain control. Will need SNF/rehab placement. I verified the medical student?s documentation in the medical record. I personally performed a physical exam and medical decision making. I made appropriate changes to the documentation and the assessment and plan based on my verification, exam and medical decision making. <Neno Orellana - Last Filed: 04/10/23 11:05> Assessment and plan (1) Acute pain of left hip: (2) Fall: Plan #non-displaced greater trochanter periprosthetic fracture. Continues to have significant pain in left hip and knee. Discussed that with current fracutre no surgery is indicated at this time according to orthopedic surgery. Appreciate recs below. -Orthopedic surgery recs (full note 04/10/23): nonoperative treatment with protected weight-bearing with a walker and fall precautions. No active abduction for 6 weeks. Follow up with Dr. Mejía in 1-2 weeks after discharge. -Continue to work with PT -case management f/u for possible SNF placement #pain management #elevated blood pressure Currently moderately well managed. Acutely elevated blood pressure likely due to underlying pain. -continue hydrocodone/acetaminophen 5/325 mg po q4 prn for pain -For refractory pain: oxycodone 5 mg (max 10) po q4 prn for pain
--- NOTE | 2023-04-10 11:20 | PT.IIE ---
Current Diagnoses Effusion, left knee (04/09/23) Periprosthetic fracture around internal prosthetic left hip joint, initial encounter (04/09/23) Pain due to internal orthopedic prosthetic devices, implants and grafts, initial encounter (04/09/23) Presence of left artificial knee joint (04/09/23) Surgical History (Last Reviewed 04/10/23 @ 07:52 by Paulette Mejía MD) Anesthesia History of bilateral salpingo-oophorectomy (BSO) History of breast augmentation (1992) History of hip replacement (01/2013) History of oophorectomy (1994) History of pneumonectomy (05/23/08) Status post hysterectomy (1994) Medical History (Last Reviewed 04/10/23 @ 07:52 by Paulette Mejía MD) Anticoagulation goal of INR 2.0 to 2.5 Atrial fibrillation (2013) Atrial fibrillation with RVR COPD (chronic obstructive pulmonary disease) Easy bruisability History of cardioversion Hypertension Lung cancer (2006) Osteoarthritis Osteoporosis (2015) Ovarian cancer (1994) Raynauds syndrome (12/14/10) Uterine cancer (1994) Physical Therapy Inpatient Evaluation/Re-Eval M1 PT/OT-IP Prior Functional Status Start: 04/10/23 12:38 Freq: NEEDED Status: Active Protocol: Document 04/10/23 11:20 AB (Rec: 04/10/23 12:56 AB [id number]) Medical Review Prior Functional Status Medical History Reviewed Yes Communication able to make needs known Mobility and Gait pt stated that she was modified independent with all mobiltiies and ambulation without AD but occasionally uses a SPC; stated that she started using a FWW ~ 1 week ago after her fall; stated that she had 3 falls this year . Social History Household Members none Living Arrangements House Number of Floors (Floors) Two Floors Number of Stairs To Enter/Railing? pt stays on main level of the house 2 steps wide bilateral rails to enter the house Home Environment Standard Height Toilet,Walk in Shower Home Equipment Front Wheel Walker,Straight Cane,Hand Held Shower,Grab Bars In Shower M2 PT-IP Current Condition Start: 04/10/23 12:38 Freq: NEEDED Status: Active Protocol: Document 04/10/23 11:20 AB (Rec: 04/10/23 12:56 AB [id number]) Physical Therapy Current Condition Current Condition Evaluation Date 04/10/23 Treatment Diagnosis L femur periprosthetic fx; difficulty in walking Onset Date 04/09/23 M3 PT-IP Subjective Start: 04/10/23 12:38 Freq: NEEDED Status: Active Protocol: Document 04/10/23 11:20 AB (Rec: 04/10/23 12:56 AB [id number]) Subjective Physical Therapy Visit Type Type Initial Evaluation Visit Start Time 11:20 Visit Stop Time 12:20 Number of REFUSE AND RECYCLING WORKER Visits 0 Physical Therapy Visit Comments Patient Comments agreeable to do PT Therapy Pain Assessment Pain When Pain Assessed At Rest Pain Present Pain Present Pain Reported Location Left knee Intensity 6 Scale Used increases with movement M4 PT-IP Mobility and Gait Start: 04/10/23 12:38 Freq: NEEDED Status: Active Protocol: Document 04/10/23 11:20 AB (Rec: 04/10/23 12:56 AB [id number]) PT-Bed Mobility Assessment Supine to Sit Supine to Sit Maximum Assistance PT-Transfer Assessment Sit to and From Stand Sit to and from Stand Maximum Assistance,2 Person Assistance,Use of Upper Extremities Equipment Transfer Assistive Device Gait Belt,Front Wheeled Walker Orthotic/Prosthetic Devices or Brace: No Transfers Transfer Destination Chair,Bedside Commode Transfer Technique Stand Pivot Transfer Ability Level of Assist Maximum Assistance,2 Person Assistance,Use of Upper Extremities Comments Mobility Comments pt supine in bed and agreeable to do PT. obtained PLOF and home set up. educated pt regarding L hip precaution of no active abduction and weight bearing restriction of TTWB. informed pt that if she is not able to maintain TTWB, for safety with be doing NWB. pt stated that she rather do NWB at this time. pt completed supine to sit max A and max cues. pt is very guarded with LLE. able to sit on EOB CGA. educated pt on how to do sit <>stand while maintaining NWB and how to maintain standing and how to do transfers usign fWW and NWB on LLE. pt completed sit to stand max A x 2 and max cues. pt stated that she feels like she is wet. instructed pt to sit back on EOB. bedside commode positioned next to pt. pt completed sit to stand max A x 2 and max cues and pivot transfer using FWW max A x 2 and max cues to bedside commode. pt required assist with hygiene care and brief management. completed sit to stand from the bedside commode max a x 2 and max cues. able to maintain standing max A while NAC/student nurse asssited pt with hygiene care and brief management. positioned chair behind pt to transfer. positioned pt on the chair. call light and table placed within reach. Gait Assessment Comments Gait Comments unable at this time PT-Balance Assessment Sitting Balance and Reactions Static Sitting Balance Ability Good Dynamic Sitting Balance Ability Fair Standing Balance and Reactions Static Standing Balance Ability Poor Dynamic Standing Balance Ability Poor Device Used FWW M5 PT-IP Objective Assessments Start: 04/10/23 12:38 Freq: NEEDED Status: Active Protocol: Document 04/10/23 11:20 AB (Rec: 04/10/23 12:56 AB [id number]) Orientation Orientation/Cognition Level of Alertness Alert Orientation Name,Place,Situation Language Function Ability No Deficits Noted Safety Awareness Decreased Safety Awareness Memory Description No Deficits Noted Gross Range of Motion Lower Extremity ROM Assessment Within Functional Limits Strength Lower Extremity Strength Assessment Bilaterally Impaired Comments Strength Comments LLE: 4-/5 RLE: 3+/5 Sensation Assessment Sensation Gross Sensation WNL Muscle Tone Muscle Tone WNL Yes M6 PT-IP Treatment Start: 04/10/23 12:38 Freq: NEEDED Status: Active Protocol: Document 04/10/23 11:20 AB (Rec: 04/10/23 12:56 AB [id number]) Physical Therapy Treatment Education Education Provided Precautions,Weight Bearing Status,Safety M7 PT-IP Assessment and Plan Start: 04/10/23 12:38 Freq: NEEDED Status: Active Protocol: Document 04/10/23 11:20 AB (Rec: 04/10/23 12:56 AB [id number]) PT Summary Assessment and Plan Potential Rehabilitation Potential Fair Status of Condition at Evaluation Evolving Summary Impairments Pain,ROM,Strength,Balance, Coordination,Sensation,Tone, Cognition,Bed Mobility, Transfers,Gait,Activity Tolerance Assessment Summary pt is an 82 y/o F who presented to the ED s/p fall and unable to weight bear on LLE. pt had 3 falls for the year already. pt c/o L knee pain and h/o L TKA last Jan 2023. L knee imaging was unremarkable but pt sustained a L femur periprosthetic fx. pt with L hip precaution of no active abduction and has a weight bearing precaution of TTWB. Pt unable to maintain TTWB and opted for NWB for safety. pt requiring max A x 2 for transfers using FWW and max cues and unable to ambulate at this time. pt will need 24/7 assistance and will require SNF rehab. will continue to assess progress. Goals Bed Mobility Goal Minimal Assistance Transfer Goal Minimal Assistance Gait Goal Minimal Assistance,Front Wheel Walker Gait Distance 25 Other Goals improve bed mobility, transfers and ambulation using fWW ~ 50 ft SBA Days to Meet Goals 10 Frequency of Treatment Frequency Of Treatment Once a Day Treatment Plan Physical Therapy Treatment Plan Bed Mobility Training,Transfer Training,Gait Training, Therapeutic Exercise,Balance Retraining,Discharge Planning, Hot or Cold Pack,Neuromuscular Re-ed,Coordination Retraining ,Manual Therapy Precautions Other Precautions LLE : no active hip abduction Weight Bearing Status Weight Bearing Status Touch Down Weight Bearing Allowed Weight Bearing Amount (enter % LLE: TTWB or #) (%) Recommendations To Nursing Amount of Assist Needed 2 Person Assist Discharge Recommendations PT Discharge Recommendations SNF Rehab Transportation Needs at Discharge Wheelchair/Cabulance
[2023-04-10] MEDS: HYDROCODONE/ACET 5/325 TABLET 1 TAB PO (11:37)
[2023-04-10] MEDS: FUROSEMIDE 40 MG TABLET PO (11:38)
--- NOTE | 2023-04-10 13:24 | DI.MRI.S_ITS ---
PROCEDURE: MR STROKE Pre- and post-contrast brain MRI, non-contrast brain MR angiogram, pre- and postcontrast neck MR angiogram INDICATIONS: recurrent falls, please evaluate for CVA TECHNIQUE: Brain: Noncontrast axial T1 spin echo, axial T2 fast spin echo, sagittal and axial FLAIR, coronal T2 fast spin echo, axial gradient echo, axial diffusion and ADC through the brain. After the administration of contrast, axial 3D VIBE of the cranial vasculature and brain. Brain MRA: Non-contrast 3-D time of flight MR angiogram, with multiple svskwda-vervexurj-vzvazvswyz (MIP) reformats performed. Neck MRA: Axial and sagittal TruFISP through the neck. Coronal dynamic MR angiogram during administration of contrast in the arterial and venous phases, with 3-dimenstional aabssbo-smozbqaoi-kknybovywb (MIP) reformats constructed from subtraction images. COMPARISON: [facility], CT, CT ANGIO CHEST PE PROTOCOL, 01/24/2023, 12:41. [facility], CT, CT HEAD/BRAIN WO CON, 04/06/2023, 19:29. [facility], MR, BRAIN WITH AND WITHOUT CONTRAS, 05/01/2007, 7:54. FINDINGS: Image quality: Diagnostic, with note made of motion artifact. BRAIN: CSF spaces: Ventricles are normal in size and shape. Basal cisterns are patent. No extra-axial fluid collections. Brain: No intracranial bleeds or mass effects. Abreu-white matter interface is normal. There is a 5 mm focus of increased diffusion-weighted signal seen within the right posterior frontal lobe, as on series 26, image 28. No associated dark signal can be seen on the ADC map. Brainstem appears normal. Normal intravascular flow voids are present. No abnormal intracranial enhancement. Note is made of age-appropriate brain parenchymal volume loss and chronic small vessel ischemic changes. Skull and face: Calvarial marrow signal is normal. Orbits appear normal. Note is made of bilateral lens replacements. Sinuses: Sinuses and mastoids are clear. BRAIN MR ANGIOGRAM: Anterior circulation: Intracranial internal carotid arteries are normal in size and enhancement. The flow within the paired anterior cerebral arteries is normal and symmetric. The flow within the middle cerebral arteries is normal and symmetric. The anterior communicating artery is seen. No stenoses, occlusions, or aneurysms. Posterior circulation: The visualized portions of the vertebral arteries demonstrate normal caliber, and join to form a normal appearing basilar artery. The flow within the posterior cerebral arteries is normal and symmetric. No stenoses, occlusions, or aneurysms. NECK MR ANGIOGRAM: Carotids: Great vessels demonstrate a conventional anatomy as they arise from the aortic arch. The origins of the common carotid arteries appear patent. The calibers and courses of both common carotid arteries are normal. The bifurcation regions appear normal bilaterally. The internal carotid arteries demonstrate normal course and caliber. Posterior circulation: The origins of the vertebral arteries appear patent. More superior portions of both vertebral arteries demonstrate normal course and caliber, and join to form a normal appearing basilar artery. Miscellaneous: Subclavian arteries appear patent. Pre-contrast images through the neck show no soft tissue abnormalities. Prior right pneumonectomy change can be seen. 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 No masses or abnormal enhancement can be seen. Note is made of age-appropriate brain parenchymal volume loss and chronic small vessel ischemic changes. BRAIN MR ANGIOGRAM: No significant intracranial arterial abnormality is seen. NECK MR ANGIOGRAM: Within the arteries of the neck, no hemodynamically significant stenosis can be seen. Additional findings: Prior right pneumonectomy Dictated by: Javed Person M.D. on 04/10/2023 at 14:55 Approved by: Javed Person M.D. on 04/10/2023 at 15:00
--- NOTE | 2023-04-10 16:03 | OT.IPNOTE ---
Pt too tired to get up for OT at this time. Able to talk to pt about prior level and equipment needs. NO charge and to see pt in the morning.
--- NOTE | 2023-04-10 16:23 | CM.DANOTE ---
Brief DCP Assessment Note Pt is a 82yo F here after a GLF/recent falls at home. Pt has a non operable left knee fracture. Pt is being followed by both ortho and [facility]. PCP Lavern Payer Medicare and Stephon PROFESSOR OF JOURNALISM reviewed EMR. Per Lavern and PT, continuing to rec SNF placement. OT unable to work with pt today. Pt currently here under INPT status. Per PT note, pt normally does not use DME at baseline but has been using a walker over the last week due to recent falls. Pt is currently getting TIA work up as stroke rule out. PROFESSOR OF JOURNALISM entered room and introduced self and role. Pt resting in chair. Pt reports anxious about dc home due to not being weight baring and living alone. Pt lives in [place] and reports no family nearby to assist at dc. PROFESSOR OF JOURNALISM explained Medicare SNF requirements/benefit to best of ability. Pt appeared to understand. Pt preference is to dc to [facility] for rehab prior to returning home. PROFESSOR OF JOURNALISM was attempting to review dcp post SNF/briefly started to review PP CG options when manager technical came to take pt to MRI. This CM was unable to complete comprehensive dcp assessment. PROFESSOR OF JOURNALISM spoke with Carine at [facility]. Carine agreed to review. Potentially could not accept until Saturday. Carine concerned about dcp following SNF placement and would be hesitant to accept referral without more comprehensive home plan in place. Plan: SNF placement pending accepting facility, [facility] preference/reviewing. CM team will continue to work closely with pt to solidify dcp following SNF placement. BEKA Coronel Discharge Planning/Care Management CM Discharge Assessment Start: 04/10/23 16:21 Freq: Status: Active Protocol: Document 04/10/23 16:22 (Rec: 04/10/23 16:23 [id number]) Discharge Planning Assessment Assigned Customer Operations Specialist BEKA Jacobo DPOA/Assigned Designee Name brother Funk Contact Information [phone] Advance Directives? Yes Advance Directives on File Yes History Provided By Patient,Medical Record Prior Living Arrangements House Household Members none Is patient alert and oriented? Yes Patient/Family Preference Senior Care Facility Discharge Plan Home Referrals Initiated None needed SNF/HH Preference [facility] Has Agency SNF been contacted Yes Comment [facility] reviewing Whiteboard Updated in Patient Room with Yes name and ext. # of Customer Operations Specialist Review Status In Process Next Review Type Continued Stay Review
[2023-04-10] MEDS: SODIUM CHLORIDE 0.9% FLUSH 10 ML IV (21:12)
[2023-04-11] VITALS (11 sets, daily range): BP systolic 119–175; BP diastolic 52–83; PULSE 61–86; RESP 16–18; TEMP 36.2–36.8; O2SAT 91–98
[2023-04-11] MEDS: IPRATROPIUM 0.5 MG/2.5 ML NEB INH ×2 (07:23→20:30)
--- NOTE | 2023-04-11 07:51 | PM.PN.1 ---
Subjective Subjective Date Patient Seen: 04/11/23 Time Patient Seen: 07:51 Interval history: Patient seen and evaluated this morning up with assistance with nursing staff tolerating diet. Complaining of hip pain but well controlled.. Vital signs have been stable not significantly tachycardic. Not requiring oxygen. Patient having normal bowel movements urination. Tolerating diet. Patient is a good historian. Exam Vital Signs (past 8 hours): - 04/11/23 00:00 04/11/23 04:00 04/11/23 07:00 Temperature 97.3 F L 97.2 F L Pulse Rate 68 61 Respiratory Rate 16 17 Blood Pressure 123/59 L 130/70 Pulse Oximetry 91 92 92 Oxygen Delivery Method Room Air Oxygen Flow Rate 0 0 Fraction of Inspired Oxygen 04/11/23 07:23 Temperature Pulse Rate 86 Respiratory Rate 18 Blood Pressure Pulse Oximetry 93 Oxygen Delivery Method Room Air Oxygen Flow Rate 0 Fraction of Inspired Oxygen 21 Fraction of Inspired Oxygen 21 SaO2/FiO2 Ratio 442 Oxygen Delivery Method Room Air Oxygen Flow Rate 0 Narrative Exam Narrative: Gen.: Patient is alert oriented frail elderly appearing female HEENT: Pupils equal round and reactive or mucosa is moist neck is supple Cardio: Regular rate and rhythm Respiratory: Normal respiratory effort no wheezes or crackles Abdomen: Soft nontender Extremities: Warm dry perfused Neurologic no focal deficits Objective Labs 04/09/23 18:26 04/10/23 05:21 [facility] Medical History Easy bruisability History of cardioversion Anticoagulation goal of INR 2.0 to 2.5 Raynauds syndrome (12/14/10) Atrial fibrillation with RVR COPD (chronic obstructive pulmonary disease) Uterine cancer (1994) Ovarian cancer (1994) Osteoporosis (2015) Osteoarthritis Atrial fibrillation (2013) Hypertension Lung cancer (2006) Surgical History Anesthesia History of pneumonectomy (05/23/08) History of oophorectomy (1994) History of hip replacement (01/2013) History of breast augmentation (1992) History of bilateral salpingo-oophorectomy (BSO) Status post hysterectomy (1994) Family History Father Hypertension Prostate cancer Grandfather Stroke Grandmother Diabetes mellitus Mother Diabetes mellitus, type II Hypertension Stroke Grandfather No problems noted. Grandmother No problems noted. Social History marital status: unmarried,single household members: none lives independently: Yes pets and animals: Yes education level: college occupational status: other Smoking Status: Former smoker Tobacco: How many years used: 19 second hand exposure: No alcohol intake: current substance use type: does not use Assessment & Plan Assessment and plan (1) Tania-prosthetic femoral shaft fracture: Status: Acute Assessment & Plan narrative: Left periprosthetic greater trochanteric hip fracture patient continued to have pain. Up with help with assistance and walker. Orthopedic surgery consultation recommended no surgery at this point. Recommended skilled physical therapy and will most likely need nursing rehab as opposed to home discharge. Pain management will be continued with Tylenol and/or oxycodone. Monitor closely blood pressure mental status changes. Continue to working with Care management for safe discharge plan. Most likely will need correction facility. Patient is medically stable for discharge to correction. Subacute infarction right posterior frontal lobe certainly potentially contributing to underlying falls. Could be ischemic also could be thromboembolic as she has atrial fibrillation although she was on adequate anticoagulation. She is currently off her anticoagulation at this point because of her ongoing falls and recent hip fracture. Would consider restarting her anticoagulation as she recovers and increases her strength and rehabilitation from physical therapy. Atrial fibrillation currently rate controlled not rhythm controlled. Previously on anticoagulation with warfarin this has been held because of her falls. COPD. Patient on Spiriva. No signs of respiratory distress we will continue her current medications for this Hypertension. Blood pressure stable at this point. She is on carvedilol for rate control. Her blood pressure will be monitored. Constipation. Colace prescription for MiraLax. Disposition and plan ambulate physical therapy occupational therapy work on discharge planning. Stable for discharge medically
[2023-04-11] MEDS: CALCIUM CARBONATE 500 MG TAB 1000 MG PO (08:15)
[2023-04-11] MEDS: carvediloL 3.125 MG TABLET 6.25 MG PO ×2 (08:15→20:47)
[2023-04-11] MEDS: AMLODIPINE 5 MG TABLET 2.5 MG PO (08:16)
[2023-04-11] MEDS: DOCUSATE 100 MG CAPSULE PO ×2 (08:16→20:47)
[2023-04-11] MEDS: FUROSEMIDE 40 MG TABLET PO (08:16)
[2023-04-11] MEDS: ENOXAPARIN 30 MG/0.3 ML SYRINGE SUBCUT (08:16)
[2023-04-11] MEDS: polyethylene glycoL 3350 17 GM POWD.PACK PO (08:17)
[2023-04-11] MEDS: FLECAINIDE 100 MG TABLET PO ×2 (08:19→20:48)
[2023-04-11] MEDS: CHOLECALCIFEROL (VITAMIN D3) 400 UNIT TABLET PO (08:20)
[2023-04-11] MEDS: ACETAMINOPHEN 325 MG TABLET 650 MG PO (08:23)
[2023-04-11] MEDS: SODIUM CHLORIDE 0.9% FLUSH 10 ML IV ×2 (08:53→20:48)
--- NOTE | 2023-04-11 10:58 | OT.IP.EVAL ---
Current Diagnoses Effusion, left knee (04/09/23) Pain in left hip (04/09/23) Periprosthetic fracture around internal prosthetic left hip joint, initial encounter (04/09/23) Periprosthetic fracture around other internal prosthetic joint, initial encounter (04/09/23) Pain due to internal orthopedic prosthetic devices, implants and grafts, initial encounter (04/09/23) Unspecified fall, subsequent encounter (04/09/23) Presence of unspecified artificial hip joint (04/09/23) Presence of left artificial knee joint (04/09/23) Past Medical History (Last Reviewed 04/10/23 @ 07:52 by Paulette Mejía MD) Anticoagulation goal of INR 2.0 to 2.5 Atrial fibrillation (2013) Atrial fibrillation with RVR COPD (chronic obstructive pulmonary disease) Easy bruisability History of cardioversion Hypertension Lung cancer (2006) Osteoarthritis Osteoporosis (2015) Ovarian cancer (1994) Raynauds syndrome (12/14/10) Uterine cancer (1994) Surgical History (Last Reviewed 04/10/23 @ 07:52 by Paulette Mejía MD) Anesthesia History of bilateral salpingo-oophorectomy (BSO) History of breast augmentation (1992) History of hip replacement (01/2013) History of oophorectomy (1994) History of pneumonectomy (05/23/08) Status post hysterectomy (1994) Occupational Therapy Inpatient Evaluation/Re-Eval M1 PT/OT-IP Prior Functional Status Start: 04/11/23 12:05 Freq: NEEDED Status: Active Protocol: Document 04/11/23 10:10 [facility] (Rec: 04/11/23 12:27 [facility] [id number]) Medical Review Prior Functional Status Medical History Reviewed Yes Communication able to make needs known Mobility and Gait pt stated that she was modified independent with all mobilities and ambulation without AD but occasionally uses a SPC; stated that she started using a FWW ~ 1 week ago after her fall; stated that she had 3 falls this year . Activities of Daily Living and IADL's Prior pt able to care for herself and lived alone. Social History Household Members none Living Arrangements House Number of Floors (Floors) Two Floors Number of Stairs To Enter/Railing? pt stays on main level of the house 2 steps wide bilateral rails to enter the house Home Environment Standard Height Toilet,Walk in Shower Home Equipment Front Wheel Walker,Straight Cane,Hand Held Shower,Grab Bars In Shower Additional Social History Comment In the past pt's step daughter who is a retired PT has stayed with the pt to assist with her care. 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 Diagnosis Onset Date 04/09/23 Weight Bearing Status Weight Bearing Status Touch Down Weight Bearing Allowed Weight Bearing Amount (enter % TTWB for LLE or #) (%) NO Active Abduction for LLE M3 OT- IP Subjective and Pain Start: 04/11/23 12:05 Freq: Status: Active Protocol: Document 04/11/23 10:10 [facility] (Rec: 04/11/23 12:27 [facility] [id number]) OT- Subjective Occupational Therapy Visit Type Type Initial Evaluation Visit Start Time 10:10 Visit Stop Time 10:48 Occupational Therapy Visit Comments Patient Comments Pt agreed to get up to use the BSC. Patient/Caregiver Goals To get better. OT Pain Assessment Pain When Pain Assessed At Rest Pain Present Pain Present Denied Pain M4 OT- IP ADL's Start: 04/11/23 12:05 Freq: Status: Active Protocol: Document 04/11/23 10:10 [facility] (Rec: 04/11/23 12:27 [facility] [id number]) OT PSQ-Pudk-Itrgafe General Evaluation Self-Feeding Ability Independent OT ADL-Grooming General Evaluation Grooming Ability Independent Comments OT Grooming Comments Able to do while seated in the chair. OT ADL-Oral Care General Eval Oral Care Ability Independent OT ADL-Dressing General Eval Lower Body Dressing Ability Maximum Assistance Areas Needing Assistance Underpants/Brief,Socks Comments OT Dressing Comments Pt MAXA to assist with brief management needs and assist. Pt states has all LB dressing equipment at home from prior sx. OT ADL-Toileting General Evaluation Toileting Ability Maximum Assistance Areas Needing Assistance Manage Clothing OT ADL-Bathing Comments OT Bathing Comments Use of rolling shower chair would be best at this time. Pt states a tub bench at home would be too big to use and not a good way to get into the walk in shower. M5 OT- IP IADL's Start: 04/11/23 12:05 Freq: Status: Active Protocol: Document 04/11/23 10:10 [facility] (Rec: 04/11/23 12:27 [facility] [id number]) OT-Instrumental Activities of Daily Living Deficits IADL Deficits Identified Deficits Home Safety Awareness Awareness of Need for Assistance at Home Good Awareness Ability to Problem Solve Emergency Able to Problem Solve Situations Medication Management Medication Management Comments Pt did prior but would benefit from at least supervision at this time. Money Management Money Management Comments Pt would benefit from assist at this time. Meal Preparation Meal Preparation Comments Pt will need assist. Toll Line Repairer Toll Line Repairer Comments Pt will need assist. M6 OT- IP Functional Cognition Start: 04/11/23 12:05 Freq: Status: Active Protocol: Document 04/11/23 10:10 [facility] (Rec: 04/11/23 12:27 [facility] [id number]) Cognitive Factors Limiting Selfcare Function Cognitive Ability Level of Alertness Alert Patient Orientation Name,Age,Birthday,Month,Date, Year,Day of Week,Place, Situation Attention Span Ability Capable of Focused Attention, Capable of Sustained Attention Ability to Follow Commands Able to Follow One Step Commands Memory Description Short Term Impaired Cognitive Tests SLUMS Pt scored 24/30 which implies mild cognitive deficits. 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 Pt also has had 3 falls since x-mas and also has hit her head as well from falling. Cognitive Comments Cognitive Assessment Comments Pt admits to recently not thinking as well. OT- Vision and Hearing OT- Hearing Assessment OT- Hearing Assessment WFL OT- Vision Assessment Visual Acuity Glasses For Reading Visual Attentiveness WFL Occular Pursuits WFL M7 OT- IP Mobility and Balance Start: 04/11/23 12:05 Freq: Status: Active Protocol: Document 04/11/23 10:10 [facility] (Rec: 04/11/23 12:27 [facility] [id number]) OT-Transfer Assessment Sit to and From Stand Sit to and from Stand Minimal Assistance Transfers Transfer Ability Minimal Assistance,Moderate Assistance,1 Person Assistance Technique Transfer Destination Bed,Bedside Commode Transfer Technique Stand Step Pivot Devices Transfer Assistive Devices Gait Belt,Front Wheeled Walker Comments Mobility Comments JHONY to stand with FWW and able to follow NWB and shuffling on her right foot to get to the [facility]. Another person to assist with brief management needs. On the way back PT able to educated pt to follow TTWB and able to maintain and needing more assist for her balance and for FWW guidance. Pt will benefit form having a shoe on the right to help with her mobility needs. Also for any distance, pt will benefit from use of a wc. OT- Balance Assessment Sitting Balance and Reactions Static Sitting Balance Ability Good Dynamic Sitting Balance Ability Good Standing Balance and Reactions Static Standing Balance Ability Fair Dynamic Standing Balance Ability Poor M8 OT- IP Objective Assessments Start: 04/11/23 12:05 Freq: Status: Active Protocol: Document 04/11/23 10:10 [facility] (Rec: 04/11/23 12:27 [facility] [id number]) OT Gross Range of Motion Upper Extremity Range of Motion Assessment Left Impaired OT Strength Upper Extremity Strength Assessment Left Impaired OT- Coordination Assessment Upper Extremity Finger to Nose Test Within Functional Limits Finger Tapping Test Within Functional Limits OT-Muscle Tone Assessment Muscle Tone WNL Yes M9 OT- IP Assessment and Plan Start: 04/11/23 12:05 Freq: Status: Active Protocol: Document 04/11/23 10:10 [facility] (Rec: 04/11/23 12:27 [facility] [id number]) OT Summary Assessment and Plan Potential Rehabilitation Potential Good Analytic Complexity at Evaluation Moderate Summary OT Impairments Pain,Strength,Balance, Functional Cognition, Functional Mobility,Grooming, Dressing,Toileting,Bathing, Toilet Transfers,Shower Transfers,Activity Tolerance Progress Towards Goals Progressing Toward Goals Assessment Summary Pt MOD complexity and main barriers are limited to TTWB for LLE needing assist for all ADL and mobility needs at this time. Pt will benefit from skilled rehab to help improve safety, strength , and balance as pt is TTWB for 6 weeks to help maximize her level of independence. Pt has a step daughter who is a PT and recently retired that has stayed with her to [facility] after multiple orhtopedic surgeries in the past. Encouraged pt to call her step daughter so able to make better plans for her discharge plan. Suggest pt to go to skilled rehab. Goals Self-Feeding Goal Independent Grooming Goal Independent Dressing Goal Standby Assistance Toileting Goal Standby Assistance Bathing Goal Minimal Assistance Toilet Transfer Goal Independent Shower Transfer Goal Contact Guard Assistance Days to Meet Goals 15 Frequency of Treatment Frequency Of Treatment Once a Day Treatment Plan OT Treatment Plan ADL Training,Functional Cognition Training,Functional Mobility,Patient/Family Education,Discharge Planning Discharge Recommendations OT Discharge Recommendations SNF Rehab Transportation Needs at Discharge Wheelchair/Cabulance
--- NOTE | 2023-04-11 11:05 | PT.IPTN ---
Current Diagnoses Effusion, left knee (04/09/23) Pain in left hip (04/09/23) Periprosthetic fracture around internal prosthetic left hip joint, initial encounter (04/09/23) Periprosthetic fracture around other internal prosthetic joint, initial encounter (04/09/23) Pain due to internal orthopedic prosthetic devices, implants and grafts, initial encounter (04/09/23) Unspecified fall, subsequent encounter (04/09/23) Presence of unspecified artificial hip joint (04/09/23) Presence of left artificial knee joint (04/09/23) Physical Therapy Treatment Note M2 PT-IP Current Condition Start: 04/10/23 12:38 Freq: NEEDED Status: Active Protocol: Document 04/10/23 11:20 AB (Rec: 04/10/23 12:56 AB [id number]) Physical Therapy Current Condition Current Condition Evaluation Date 04/10/23 Treatment Diagnosis L femur periprosthetic fx; difficulty in walking Onset Date 04/09/23 M3 PT-IP Subjective Start: 04/10/23 12:38 Freq: NEEDED Status: Active Protocol: Document 04/11/23 10:23 MB (Rec: 04/11/23 11:05 MB [id number]) Subjective Physical Therapy Visit Type Type Treatment Note Visit Start Time 10:23 Visit Stop Time 10:48 Number of PRE PRESS MANAGER Visits 0 Physical Therapy Visit Comments Patient Comments I really hope I can get into care home in [facility]. Therapy Pain Assessment Pain When Pain Assessed At Rest Pain Present Pain Present Denied Pain M4 PT-IP Mobility and Gait Start: 04/10/23 12:38 Freq: NEEDED Status: Active Protocol: Document 04/11/23 10:23 MB (Rec: 04/11/23 11:05 MB [id number]) PT-Transfer Assessment Sit to and From Stand Sit to and from Stand Minimal Assistance,1 Person Assistance,Use of Upper Extremities Equipment Transfer Assistive Device Gait Belt,Front Wheeled Walker Orthotic/Prosthetic Devices or Brace: No Transfers Transfer Destination Bedside Commode Transfer Technique Stand Pivot Transfer Ability Level of Assist Minimal Assistance,1 Person Assistance,Use of Upper Extremities Comments Mobility Comments Pt sitting up in recliner with OT nearby upon arrival. She verbalizes no weight through left leg and no abduction. +2 person nearby for transfer d/t need for +2 assistance yesterday and today, pt does much better with transfer with cues to push up from the chair, get right foot underneath her and lean forward. Pt requires min A. She is reluctant to try TDWB LLE and scoots on right foot with NWB LLE to get to the commode. Non-skid sock and more imbalance with NWB LLE increase imbalance. She requires CGA to min A for second STS from BSC to the walker with cues. Once standing, pt is able to perform touch down weight bearing through left foot well and she is able to manage that WB. Initiated two forward step training with TDWB and pt demonstrates ability to maintain WB and she has some anxiety trying but does well: she is very aware of limiting weight through the left leg. Pt has more challenge with stepping backwards and tends to scoot or hop with min A and RW. Gait Assessment Gait Gait Assistance Required: Minimum Assistance,1 Person Assist Distance (Feet) 1 Able to Maintain Weight Bearing Status Yes During Gait Assistive Devices Assistive Device Gait Belt,Front Wheeled Walker Gait Deviations General Gait Pattern Decreased Stride Length, Decreased Feet Clearance,Step- to Gait Factors Limiting Gait Function Factors Limiting Gait Function Decreased Activity Tolerance, Decreased Strength,Poor Balance Comments Gait Comments See comments above PT-Balance Assessment Sitting Balance and Reactions Static Sitting Balance Ability Good Dynamic Sitting Balance Ability Good Standing Balance and Reactions Static Standing Balance Ability Good Dynamic Standing Balance Ability Fair Device Used RW M5 PT-IP Objective Assessments Start: 04/10/23 12:38 Freq: NEEDED Status: Active Protocol: Document 04/10/23 11:20 AB (Rec: 04/10/23 12:56 AB [id number]) Orientation Orientation/Cognition Level of Alertness Alert Orientation Name,Place,Situation Language Function Ability No Deficits Noted Safety Awareness Decreased Safety Awareness Memory Description No Deficits Noted Gross Range of Motion Lower Extremity ROM Assessment Within Functional Limits Strength Lower Extremity Strength Assessment Bilaterally Impaired Comments Strength Comments LLE: 4-/5 RLE: 3+/5 Sensation Assessment Sensation Gross Sensation WNL Muscle Tone Muscle Tone WNL Yes M6 PT-IP Treatment Start: 04/10/23 12:38 Freq: NEEDED Status: Active Protocol: Document 04/11/23 10:23 MB (Rec: 04/11/23 11:05 MB [id number]) Physical Therapy Treatment Education Education Provided Precautions,Weight Bearing Status,Safety M7 PT-IP Assessment and Plan Start: 04/10/23 12:38 Freq: NEEDED Status: Active Protocol: Document 04/11/23 10:23 MB (Rec: 04/11/23 11:05 MB [id number]) PT Summary Assessment and Plan Potential Rehabilitation Potential Fair Status of Condition at Evaluation Evolving Summary Impairments ROM,Strength,Balance,Bed Mobility,Transfers,Gait, Activity Tolerance Assessment Summary Pat is doing better with transfers and starting TDWB training today. This will go even better with practice and with getting a lace up shoe for right foot. Pt is very aware, understands restrictions and very compliant with PT. She will be a great rehab candidate. Having limited WB in an 82 y/o with hip fracture does limit her overall abilities. She will have a follow-up with ortho in the future. Pain is not a problem in the hip. The biggest barrier is not being allowed to WB. This limits her function. Goals Bed Mobility Goal Standby Assistance Transfer Goal Standby Assistance Gait Goal Standby Assistance,Front Wheel Walker Gait Distance 25 Other Goals improve bed mobility, transfers and ambulation using fWW ~ 50 ft SBA Days to Meet Goals 10 Frequency of Treatment Frequency Of Treatment Once a Day Treatment Plan Physical Therapy Treatment Plan Bed Mobility Training,Transfer Training,Gait Training, Therapeutic Exercise,Balance Retraining,Discharge Planning, Hot or Cold Pack,Neuromuscular Re-ed,Coordination Retraining ,Manual Therapy Precautions Other Precautions LLE : no active hip abduction Weight Bearing Status Weight Bearing Status Touch Down Weight Bearing Allowed Weight Bearing Amount (enter % LLE: TTWB or #) (%) Recommendations To Nursing Amount of Assist Needed 1 Person Assist,2 Person Assist Discharge Recommendations PT Discharge Recommendations SNF Rehab Transportation Needs at Discharge Wheelchair/Cabulance
--- NOTE | 2023-04-11 11:22 | P.PN_ITS ---
Subjective Subjective Interval history: Cecille is a pleasent 82 year old female sitting comfortably in bedside chair during interview today. She reports that she has had 3 falls since Eliza. Most recently she was bending over to put her shoes and compression socks on and felt a pop and extreme pain that she would rate as 10/10 around her lateral knee. She was unable to move or weight bear on this and eventually 911 was called and she was brought by EMS to the hospital. She has had several CT scans after her falls in the ER, msot recent CT done on 03/30/23 demonstrated a nondisplaced greater trochanter fracture around her left hip replacement. Interestingly the patient does not complain of hip pain today but more of proximal lateral tibia pain, history of L TKA. She was initally non-weight bearing to the left leg when admitted to the hospital but was seen by PT/OT today and was able to weight bear to the left leg for a short period althought with moderate-severe pain. She typically lives independently alone, has concerns about being sent home after d/c from hospital as she is still having difficulty weight bearing and has a recent history of multiple falls. Discussed going to SNF for initial rehab. She has a step-daughter who is a PT and she is planning to reach out to her today to ask if she can stay with patient for a short time after she comes home from SNF. She was previously on anticoagulation this was discontinued recently due to her falls. Denies chest pain, SOB, fever, chills, nausea. Exam Vital Signs (past 8 hours): - 04/11/23 04:00 04/11/23 07:00 04/11/23 07:00 Temperature 97.2 F L Pulse Rate 61 Respiratory Rate 17 Blood Pressure 130/70 Pulse Oximetry 92 92 Oxygen Delivery Method Room Air Room Air Oxygen Flow Rate 0 Fraction of Inspired Oxygen 04/11/23 07:23 04/11/23 08:00 04/11/23 08:15 Temperature 98.2 F Pulse Rate 86 86 86 Respiratory Rate 18 16 Blood Pressure 149/83 H 130/70 Pulse Oximetry 93 91 Oxygen Delivery Method Room Air Oxygen Flow Rate 0 Fraction of Inspired Oxygen 21 Fraction of Inspired Oxygen 21 SaO2/FiO2 Ratio 442 Oxygen Delivery Method Room Air Oxygen Flow Rate 0 Const General: cooperative, healthy appearing and comfortable Resp Effort & Inspection: normal respiratory effort and able to speak in complete sentences Cardio Rate: regular rate Neuro General: patient alert, patient awake and patient oriented x3 Extrem Other: 5/5 strength with DF, PF, EHL. Sensation intact to light touch in all toes. TTP along proximal lateral left tibia. Non-tender to palpation to lateral or medial mallelous or left hip. Moderate left knee joint effusion with ecchymosis on the lateral and medial aspects of the knee. Objective Labs 04/09/23 18:26 04/10/23 05:21 [facility] Medical History Easy bruisability History of cardioversion Anticoagulation goal of INR 2.0 to 2.5 Raynauds syndrome (12/14/10) Atrial fibrillation with RVR COPD (chronic obstructive pulmonary disease) Uterine cancer (1994) Ovarian cancer (1994) Osteoporosis (2015) Osteoarthritis Atrial fibrillation (2013) Hypertension Lung cancer (2006) Surgical History Anesthesia History of pneumonectomy (05/23/08) History of oophorectomy (1994) History of hip replacement (01/2013) History of breast augmentation (1992) History of bilateral salpingo-oophorectomy (BSO) Status post hysterectomy (1994) Family History Father Hypertension Prostate cancer Grandfather Stroke Grandmother Diabetes mellitus Mother Diabetes mellitus, type II Hypertension Stroke Grandfather No problems noted. Grandmother No problems noted. Social History marital status: unmarried,single household members: none lives independently: Yes pets and animals: Yes education level: college occupational status: other Smoking Status: Former smoker Tobacco: How many years used: 19 second hand exposure: No alcohol intake: current substance use type: does not use Assessment & Plan Assessment and plan (1) Periprosthetic fracture around internal prosthetic hip joint: Qualifiers: Encounter type: initial encounter Laterality: left Qualified Code(s): M97.02XA - Periprosthetic fracture around internal prosthetic left hip joint, initial encounter Status: Acute (2) Painful total knee replacement, left: Qualifiers: Encounter type: initial encounter Qualified Code(s): T84.84XA - Pain due to internal orthopedic prosthetic devices, implants and grafts, initial encounter; Z96.652 - Presence of left artificial knee joint Status: Acute (3) Knee effusion, left: Status: Acute Plan 1. left hip nondisplaced greater troch periprosthetic fx. [place] A fx, recommend protected WB and nonopertive treatment with NO active ABDuction x 6 weeks. --must use walker for ambulation. Continue to work with PT/OT on mobility. 2. Left knee painful total knee replacement.No obvious fracture seen on CT scan. Recommend interval follow-up with repeat knee x-rays in 2 weeks. We will treat similar to hip with protected weight-bearing. Must use a walker. Range of motion as tolerated. Recommend ice 20 minutes on our while awake. 3. Due to mobility issues and requirement for assistive devices anticipate discharge to SNF tommorow vs home with step-daught.er 4. No current operative indication. No current sign of infection. Does not need to be NPO. Follow up in [facility] with the patient's orthopedic surgeon Dr. Kymberly Hough in 10-14 days for repeat x-rays hip and knee and evaluation--repeat x-rays sooner if there is any decline in function or worsening pain 5. PT/OT
--- NOTE | 2023-04-11 12:51 | CM.DPNOTE ---
MAGDA Cont Spoke with Keri at [facility] this morning; it is likely they will have a bed available for patient tomorrow. Keri inquires about patient's plan for assist upon discharge from the SNF. Updated Ortho VALARIE with this information. Met w/patient to review discharge plan. Patient very pleased to hear [facility] will accept. Asked patient about her plan for assistance once she leaves [facility]. Patient has arranged for her step dtr, who is a PT, to visit and assist upon discharge from SNF. Patient has also considered using her terminal gauger care insurance to arranged private in home care. Updated Adriano Saavedra, who has arranged for patient to be transported via cabulance at 1300 tomorrow 2.2.24- updated Fadumo SHEPPARD. Plan: Discharge tomorrow 2.2.24 to [facility] via cabulance. CM team following closely for coordination of discharge plan. BEST
[2023-04-12] VITALS (34 sets, daily range): BP systolic 101–175; BP diastolic 52–89; PULSE 55–143; RESP 14–42; TEMP 36.2–36.6; O2SAT 91–100
[2023-04-12] MEDS: HYDROCODONE/ACET 5/325 TABLET 2 TAB PO ×4 (05:12→18:07)
[2023-04-12 06:50] LABS: Add Manual Diff / Slide Review NO; Basophils Absolute Auto 0 /uL (0-100); Basophils Percent Auto 0.4 % (0-2); Eosinophils Absolute Auto 100 /uL (0-450); Eosinophils Percent Auto 1.5 % (2-4); Hematocrit 31.6 % (36-46); Hemoglobin 10.4 g/dL (12.0-16.0); Lymphocytes Absolute Auto 900 /uL (1100-4500); Lymphocytes Percent Auto 17.1 % (25-40); Mean Corpuscular HGB Conc 32.9 % (30-36); Mean Corpuscular Hemoglobin 28.3 PG (26-34); Monocytes Absolute Auto 600 /uL (0-900); Monocytes Percent Auto 11.6 % (3-14); Neutrophils Absolute Auto 3800 /uL (1500-7000); Neutrophils Percent Auto 69.4 % (50-75); Platelet Count 277 X10^3/uL (150-400); Red Blood Cell Count 3.68 X10^6/uL (4.0-5.2); Red Cell Distribution Width 14.8 % (11.6-14.8); White Blood Cell Count 5.5 X10^3/uL (4.5-11.0)
[2023-04-12 07:04] LABS: BUN Creatinine Ratio 29.3 (6-22); Blood Urea Nitrogen 17 mg/dL (7-17); Calcium 9.1 mg/dL (8.4-10.2); Carbon Dioxide 34 mmol/L (22-32); Chloride 96 mmol/L (98-107); Estimated Glomerular Filt Rate > 60 mL/min (>60); Glucose 95 mg/dL (80-110); HEMOLYSIS < 15 (0-50); Potassium 3.8 mmol/L (3.4-5.1); Sodium 134 mmol/L (137-145)
--- NOTE | 2023-04-12 07:51 | P.PN_ITS ---
Subjective Subjective Interval history: Cecille is a pleasent 82 year old female lying comfortably in bed during interview today with ice on her left knee. She reports that she has had 3 falls since [place]. Most recently she was bending over to put her shoes and compression socks on and felt a pop and extreme pain that she would rate as 10/10 around her lateral knee. She was unable to move or weight bear on this and eventually 911 was called and she was brought by EMS to the hospital. She has had several CT scans after her falls in the ER, msot recent CT done on 03/30/23 demonstrated a nondisplaced greater trochanter fracture around her left hip replacement. Interestingly the patient does not complain of hip pain today but more of proximal lateral tibia pain, history of L TKA. She was initally non- weight bearing to the left leg when admitted to the hospital but was seen by PT/OT yesterday and was able to weight bear to the left leg for a short period although with moderate-severe pain. Plans to work [facility] PT again today prior to d/c. She typically lives independently alone, had concerns about being sent home after d/c from hospital as she is still having difficulty weight bearing and has a recent history of multiple falls. Discussed d/c to SNF yesterday however patient spoke with her step-daughter yesterday who is a retired PT and patient now plans to d/c to home with her step-daughter who she plans to stay with for at least 6 weeks. She was previously on anticoagulation this was discontinued recently due to her falls. Denies chest pain, SOB, fever, chills, nausea. Exam Vital Signs (past 8 hours): - 04/12/23 00:00 04/12/23 04:00 04/12/23 04:11 Temperature 97.2 F L 97.8 F Pulse Rate 61 60 Respiratory Rate 18 14 Blood Pressure 154/74 H 165/65 H Pulse Oximetry 94 94 Oxygen Delivery Method Room Air Oxygen Flow Rate 0 0 Fraction of Inspired Oxygen 21 SaO2/FiO2 Ratio 442 Oxygen Delivery Method Room Air Oxygen Flow Rate 0 Const General: cooperative, healthy appearing and comfortable Resp Effort & Inspection: normal respiratory effort and able to speak in complete sentences Cardio Rate: regular rate Neuro General: patient alert, patient awake and patient oriented x3 Extrem Other: 5/5 strength with DF, PF, EHL. Sensation intact to light touch in all toes. TTP along proximal lateral left tibia. Non-tender to palpation. Moderate left knee joint effusion with ecchymosis surrounding the left knee. Left knee AROM 0- 110. Calves soft and non-tender bilaterally. Objective Labs 04/12/23 06:20 04/12/23 06:20 Labs: Laboratory Results - last 24 hr 04/12/23 06:20 WBC 5.5 RBC 3.68 L Hgb 10.4 L Hct 31.6 L MCV 86.0 MCH 28.3 MCHC 32.9 RDW 14.8 Plt Count 277 Neut % (Auto) 69.4 Lymph % (Auto) 17.1 L [place] % (Auto) 11.6 Eos % (Auto) 1.5 L Baso % (Auto) 0.4 Neut # (Auto) 3800 Lymph # (Auto) 900 L [place] # (Auto) 600 Eos # (Auto) 100 Baso # (Auto) 0 Sodium 134 L Potassium 3.8 Chloride 96 L Carbon Dioxide 34 H BUN 17 Creatinine 0.58 Estimated GFR > 60 BUN/Creatinine Ratio 29.3 H Glucose 95 Calcium 9.1 [facility] Medical History Easy bruisability History of cardioversion Anticoagulation goal of INR 2.0 to 2.5 Raynauds syndrome (12/14/10) Atrial fibrillation with RVR COPD (chronic obstructive pulmonary disease) Uterine cancer (1994) Ovarian cancer (1994) Osteoporosis (2015) Osteoarthritis Atrial fibrillation (2013) Hypertension Lung cancer (2006) Surgical History Anesthesia History of pneumonectomy (05/23/08) History of oophorectomy (1994) History of hip replacement (01/2013) History of breast augmentation (1992) History of bilateral salpingo-oophorectomy (BSO) Status post hysterectomy (1994) Family History Father Hypertension Prostate cancer Grandfather Stroke Grandmother Diabetes mellitus Mother Diabetes mellitus, type II Hypertension Stroke Grandfather No problems noted. Grandmother No problems noted. Social History marital status: unmarried,single household members: none lives independently: Yes pets and animals: Yes education level: college occupational status: other Smoking Status: Former smoker Tobacco: How many years used: 19 second hand exposure: No alcohol intake: current substance use type: does not use Assessment & Plan Assessment and plan (1) Periprosthetic fracture around internal prosthetic hip joint: Qualifiers: Encounter type: initial encounter Laterality: left Qualified Code(s): M97.02XA - Periprosthetic fracture around internal prosthetic left hip joint, initial encounter Status: Acute (2) Painful total knee replacement, left: Qualifiers: Encounter type: initial encounter Qualified Code(s): T84.84XA - Pain due to internal orthopedic prosthetic devices, implants and grafts, initial encounter; Z96.652 - Presence of left artificial knee joint Status: Acute (3) Knee effusion, left: Status: Acute Plan 1. left hip nondisplaced greater troch periprosthetic fx. [place] A fx, recommend protected WB and nonopertive treatment with NO active ABDuction x 6 weeks. --must use walker for ambulation. Continue to work with PT/OT on mobility. 2. Left knee painful total knee replacement.No obvious fracture seen on CT scan. Recommend interval follow-up with repeat knee x-rays in 2 weeks. We will treat similar to hip with protected weight-bearing. Must use a walker. Range of motion as tolerated. Recommend ice 20 minutes on our while awake. 3. Due to mobility issues and requirement for assistive devices anticipate discharge to home with step-daughter today. 4. No current operative indication. No current sign of infection. Does not need to be NPO. Follow up in Orthopedic Clinic with the patient's orthopedic surgeon Dr. Kymberly Hough in 10-14 days for repeat x-rays hip and knee and evaluation--repeat x-rays sooner if there is any decline in function or worsening pain 5. PT/OT
[2023-04-12] MEDS: FUROSEMIDE 40 MG TABLET PO (09:03)
[2023-04-12] MEDS: CHOLECALCIFEROL (VITAMIN D3) 400 UNIT TABLET PO (09:03)
[2023-04-12] MEDS: DOCUSATE 100 MG CAPSULE PO ×2 (09:04→21:38)
[2023-04-12] MEDS: FLECAINIDE 100 MG TABLET PO ×2 (09:04→21:43)
[2023-04-12] MEDS: carvediloL 3.125 MG TABLET 6.25 MG PO ×2 (09:05→21:37)
[2023-04-12] MEDS: AMLODIPINE 5 MG TABLET 2.5 MG PO (09:06)
[2023-04-12] MEDS: polyethylene glycoL 3350 17 GM POWD.PACK PO (09:07)
[2023-04-12] MEDS: ENOXAPARIN 30 MG/0.3 ML SYRINGE SUBCUT (09:07)
--- NOTE | 2023-04-12 09:42 | PT.IPTN ---
Current Diagnoses Effusion, left knee (04/09/23) Pain in left hip (04/09/23) Periprosthetic fracture around internal prosthetic left hip joint, initial encounter (04/09/23) Periprosthetic fracture around other internal prosthetic joint, initial encounter (04/09/23) Pain due to internal orthopedic prosthetic devices, implants and grafts, initial encounter (04/09/23) Unspecified fall, subsequent encounter (04/09/23) Presence of unspecified artificial hip joint (04/09/23) Presence of left artificial knee joint (04/09/23) Physical Therapy Treatment Note M2 PT-IP Current Condition Start: 04/10/23 12:38 Freq: NEEDED Status: Active Protocol: Document 04/10/23 11:20 AB (Rec: 04/10/23 12:56 AB [id number]) Physical Therapy Current Condition Current Condition Evaluation Date 04/10/23 Treatment Diagnosis L femur periprosthetic fx; difficulty in walking Onset Date 04/09/23 M3 PT-IP Subjective Start: 04/10/23 12:38 Freq: NEEDED Status: Active Protocol: Document 04/12/23 10:12 ZF (Rec: 04/12/23 10:25 ZF [id number]) Subjective Physical Therapy Visit Type Type Treatment Note Visit Start Time 09:42 Visit Stop Time 10:08 Number of EXECUTIVE [employer]ICE PRESIDENT BUSINESS DEVELOPMENT Visits 1 Physical Therapy Visit Comments Patient Comments Pt reports her step-daughter who is a retired PT is going to stay with her. Therapy Pain Assessment Pain When Pain Assessed At Rest Location Left knee Scale Used Numeric (0 - 10) M4 PT-IP Mobility and Gait Start: 04/10/23 12:38 Freq: NEEDED Status: Active Protocol: Document 04/12/23 10:12 ZF (Rec: 04/12/23 10:25 ZF [id number]) PT-Bed Mobility Assessment Supine to Sit Supine to Sit Standby Assistance Sit to Supine Sit to Supine Standby Assistance PT-Transfer Assessment Sit to and From Stand Sit to and from Stand Contact Guard Assistance,1 Person Assistance,Use of Upper Extremities Equipment Transfer Assistive Device Gait Belt,Front Wheeled Walker Orthotic/Prosthetic Devices or Brace: No Transfers Transfer Destination Bed,Chair Transfer Technique Stand Pivot Transfer Ability Level of Assist Contact Guard Assistance,1 Person Assistance,Use of Upper Extremities Comments Mobility Comments Pt up in recliner when approached for therapy, agreeable to PT. STS from recliner/EOB w/2ww requires CGA. VC for forward lean and keeping L LE positioned in front during stands. Pt uses BL UE to push up from arm rests. SPT w/2ww, CGA. Pt dems good adherance to TTWB w/ transfer. Sitting<>EOB to Supine SBA. Pt able to manage L LE w assist from R LE. Pt scoots up in bed w/SBA. Pt transfers back to Recliner w/ CGA, cushioned placed under L LE, all needs met. PT-Balance Assessment Sitting Balance and Reactions Static Sitting Balance Ability Good Dynamic Sitting Balance Ability Good Standing Balance and Reactions Static Standing Balance Ability Good Dynamic Standing Balance Ability Fair Device Used RW M5 PT-IP Objective Assessments Start: 04/10/23 12:38 Freq: NEEDED Status: Active Protocol: Document 04/10/23 11:20 AB (Rec: 04/10/23 12:56 AB [id number]) Orientation Orientation/Cognition Level of Alertness Alert Orientation Name,Place,Situation Language Function Ability No Deficits Noted Safety Awareness Decreased Safety Awareness Memory Description No Deficits Noted Gross Range of Motion Lower Extremity ROM Assessment Within Functional Limits Strength Lower Extremity Strength Assessment Bilaterally Impaired Comments Strength Comments LLE: 4-/5 RLE: 3+/5 Sensation Assessment Sensation Gross Sensation WNL Muscle Tone Muscle Tone WNL Yes M6 PT-IP Treatment Start: 04/10/23 12:38 Freq: NEEDED Status: Active Protocol: Document 04/12/23 10:12 ZF (Rec: 04/12/23 10:25 [id number]) Physical Therapy Treatment Education Education Provided Precautions,Weight Bearing Status,Safety M7 PT-IP Assessment and Plan Start: 04/10/23 12:38 Freq: NEEDED Status: Active Protocol: Document 04/12/23 10:12 ZF (Rec: 04/12/23 10:25 [id number]) PT Summary Assessment and Plan Potential Rehabilitation Potential Fair Summary Impairments ROM,Strength,Balance,Bed Mobility,Transfers,Gait, Activity Tolerance Assessment Summary Pt completes transfers w/CGA. Dems good adherance to TTWB. Able to complete bed mobility with SBA. Pt's friend is getting a WC from [employer]. Pt reports feeling good about DC home today with step- daughter who is a retired PT. Goals Bed Mobility Goal Standby Assistance Transfer Goal Standby Assistance Gait Goal Standby Assistance,Front Wheel Walker Gait Distance 25 Other Goals improve bed mobility, transfers and ambulation using fWW ~ 50 ft SBA Days to Meet Goals 10 Frequency of Treatment Frequency Of Treatment Once a Day Treatment Plan Physical Therapy Treatment Plan Bed Mobility Training,Transfer Training,Gait Training, Therapeutic Exercise,Balance Retraining,Discharge Planning, Hot or Cold Pack,Neuromuscular Re-ed,Coordination Retraining ,Manual Therapy Precautions Other Precautions LLE : no active hip abduction Weight Bearing Status Weight Bearing Status Touch Down Weight Bearing Allowed Weight Bearing Amount (enter % LLE: TTWB or #) (%) Recommendations To Nursing Amount of Assist Needed 1 Person Assist Discharge Recommendations PT Discharge Recommendations Home with Assistance Transportation Needs at Discharge Private Vehicle
[2023-04-12] MEDS: IPRATROPIUM 0.5 MG/2.5 ML NEB INH ×2 (10:06→19:31)
--- NOTE | 2023-04-12 10:50 | PM.DS.1 ---
History of Present Illness History of Present Illness Chief complaint: GLF, Left Knee Pain Narrative: Pt is an 82 y/o F w h/o falls, afib (on warfarin), here for acute onset of leg pain. On Saturday pt had a fall at [facility]. States that she was exiting the pew and fell into the isle onto her left hip. Was not in significant pain at the time but did need to have some help back to her feet. Denies hitting head, LOC, heart palpitations, or dizziness. States that she thinks she may have taken a bad step. She drove herself home later that day and then decided to drive herself to the emergency department to be check out. She did this because she noticed some dull pain at the time. ED visit (04/06/23): stopped warfarin. Hip imaging was not concerning for any acute trauma. Yesterday (04/09/23): While bending over to put her shoe on felt sudden severe pain radiating down her left thigh to her knee cap. Pain was so severe that she could not walk so called 911. Upon arrival to ED imaging significant for nondisplaced greater trochanter periprothetic fracture. Orthopedic surgery is now currently following. Denies chest pain, dizziness, heart palpitations, SOB, LOC. The pt has had 3 traumatic falls in the last month. She denies any precipitating event for any of them. She does not specifically recall tripping either though. She is uncertain why she keeps falling. She lives at home independently. Discharge Providers Provider Date of admission: 04/09/23 23:12 Primary care physician: Rosio Puckett MD Consults: 04/09/23 23:56 Consult to Occupational Therapy Evaluate & Treat Comment: Tania-prosthetic femoral shaft fracture Physician Instructions: Evaluate and treat Consult to Physical Therapy Evaluate & Treat Comment: L Toby fx + knee pain - protected WB- no active ABD Physician Instructions: Evaluate and Treat 04/10/23 06:54 Consult to Orthopedic Surgery Routine Comment: Consulting Provider: Paulette Mejía Reason for consultation: PERIPROSTHETIC FRACTURE Has provider been notified: Yes Discharge provider: Rosio Puckett MD Exam Vital Signs (past 8 hours): - 04/12/23 04:00 04/12/23 04:11 04/12/23 08:00 Temperature 97.8 F 97.7 F Pulse Rate 60 63 Respiratory Rate 14 18 Blood Pressure 165/65 H Pulse Oximetry 94 96 Oxygen Delivery Method Room Air Oxygen Flow Rate 0 0 Fraction of Inspired Oxygen 21 SaO2/FiO2 Ratio 442 Oxygen Delivery Method Room Air Oxygen Flow Rate 0 Objective Labs 04/12/23 06:20 04/12/23 06:20 Labs: Laboratory Results - last 24 hr 04/12/23 06:20 WBC 5.5 RBC 3.68 L Hgb 10.4 L Hct 31.6 L MCV 86.0 MCH 28.3 MCHC 32.9 RDW 14.8 Plt Count 277 Neut % (Auto) 69.4 Lymph % (Auto) 17.1 L [place] % (Auto) 11.6 Eos % (Auto) 1.5 L Baso % (Auto) 0.4 Neut # (Auto) 3800 Lymph # (Auto) 900 L [place] # (Auto) 600 Eos # (Auto) 100 Baso # (Auto) 0 Sodium 134 L Potassium 3.8 Chloride 96 L Carbon Dioxide 34 H BUN 17 Creatinine 0.58 Estimated GFR > 60 BUN/Creatinine Ratio 29.3 H Glucose 95 Calcium 9.1 [facility] Medical History Easy bruisability History of cardioversion Anticoagulation goal of INR 2.0 to 2.5 Raynauds syndrome (12/14/10) Atrial fibrillation with RVR COPD (chronic obstructive pulmonary disease) Uterine cancer (1994) Ovarian cancer (1994) Osteoporosis (2015) Osteoarthritis Atrial fibrillation (2013) Hypertension Lung cancer (2006) Surgical History Anesthesia History of pneumonectomy (05/23/08) History of oophorectomy (1994) History of hip replacement (01/2013) History of breast augmentation (1992) History of bilateral salpingo-oophorectomy (BSO) Status post hysterectomy (1994) Family History Father Hypertension Prostate cancer Grandfather Stroke Grandmother Diabetes mellitus Mother Diabetes mellitus, type II Hypertension Stroke Grandfather No problems noted. Grandmother No problems noted. Social History marital status: unmarried,single household members: none lives independently: Yes pets and animals: Yes education level: college occupational status: other Smoking Status: Former smoker Tobacco: How many years used: 19 second hand exposure: No alcohol intake: current substance use type: does not use Discharge Plan Discharge Plan Patient Disposition: Home Provider Discharge Comment: Follow up at [facility] in 2 weeks Discharge orders & Medications Prescriptions: New acetaminophen 325 mg Tablet 650 mg PO Q6H PRN (Reason: Fever/Mild Pain (1-3)) Qty: 90 0RF docusate sodium 100 mg Capsule 100 mg PO BID Qty: 60 0RF oxycodone 5 mg Tablet 5 mg PO Q3HR PRN (Reason: Pain, Moderate (4-6)) Qty: 30 0RF aspirin 81 mg capsule 81 mg PO DAILY Qty: 90 0RF Continued cholecalciferol (vitamin D3) [Vitamin D3] 1,000 UNIT tablet 2,000 units PO DAILY Qty: 0 carvedilol 6.25 mg tablet 6.25 mg PO BID Rx Instructions: must administer with a meal/food (DME) Disabled Parking See Rx Instructions .ROUTE .MEDSUPPLY Qty: 1 0RF Rx Instructions: I find this patient to be medically disabled and qualified for Permanent Disabled Parking as indicated, and signed, on the Accompanying Disabled Parking Application for Individuals tiotropium bromide 18 mcg capsule, w/inhalation device 1 cap inhalation DAILY Qty: 90 3RF Rx Instructions: puncture 1 cap using device; one dose = 2 inhalations furosemide 40 mg tablet 40 mg PO QAM Qty: 30 0RF calcium carbonate-vitamin D3 [Calcium 600 + D(3)] 600 mg(1,500mg) -200 unit Tablet 2 tab PO DAILY multivitamin with minerals Tablet 1 tab PO DAILY flecainide 100 mg Tablet 100 mg PO Q12H amlodipine 2.5 mg Tablet 2.5 mg PO DAILY ferrous sulfate 325 mg (65 mg iron) tablet 325 mg PO Q OTHER DAY Discontinued warfarin 2 mg tablet See Rx Instructions .ROUTE .COMPLEX Qty: 90 1RF Dose Instruction: TAKE 1/2 TABLET ON SATURDAY, TAKE 1 TABLET DAILY ON ALL OTHER DAYS OF THE WEEK OR DIRECTED Rx Instructions: TAKE 1/2 TABLET ON SATURDAY, TAKE 1 TABLET DAILY ON ALL OTHER DAYS OF THE WEEK OR DIRECTED Follow up/Referrals: Rosio Puckett MD [Primary Care Provider] - 2 Weeks Activity Restrictions/Additional Instructions: Please follow up with the orthopedic surgeon for recheck. Continue to use her walker as needed. You may take Tylenol up to a 1000 mg every 6 hours. If inadequate for pain you can take 1 oxycodone every 6 hours as needed. Prescription sent to [facility]. Please return for new or worsening pain, new numbness tingling or weakness, increasing swelling, inability to ambulate, recurrent falls or other new or concerning changes. Diet/Activity/Treatments Diet: Diet as Tolerated and Regular Cold/Heat Therapy: Ice as needed to knee and hip for pain control Skin/Wound/Dressing Care Report to your healthcare provider any signs of infection, such as:: chills, fever, night sweats, unusual drainage and unusual redness Visit Report/Discharge Packet Instructions: DI for Knee Pain Stand Alone Forms: Patient Portal/API, Stroke Signs & Symptoms Discharge Data Primary Care Provider: Rosio Puckett
[2023-04-12] MEDS: ADENOSINE 6 MG/2 ML VIAL IV (12:16)
--- NOTE | 2023-04-12 12:17 | CM.DPNOTE ---
DCP Cont Change of plan; patient's step dtr and professional PT, Kateryna Franca P [phone], has agreed to take patient to her home to care for her throughout her recovery. Patient pleased. Therapies and provider updated and approve of this plan. Patient and family deny need for HH at this time and hope to get patient into outpatient therapies when appropriate. Keri at [facility] updated. Patient now in rm 230 after going into Afib. CM team will plan to follow patient's clinical course closely. Plan: Discharge home anticipated with family to assist during recovery. Close outpatient follow up. No need for HH at this time according to patient/family. BEST
[2023-04-12] MEDS: SODIUM CHLORIDE 0.9% FLUSH 10 ML IV ×2 (12:24→21:40)
[2023-04-12] MEDS: CALCIUM CARBONATE 500 MG TAB 1000 MG PO (12:26)
--- NOTE | 2023-04-12 12:28 | DI.ECHO.S_ITS ---
[facility] +---------+ [facility] +---------+ : : [address] : [place] : : : : [id number] : : : : Phone: [phone]+ Echocardiogram Report + + :Name: ELIUD BENDER Study Date: 04/12/2023 Height: 59 in : :[facility] ReadingLocation: Weight: 99 lb : : Gender: Female BSA: 1.4 m2 : :: 1940 Age: 82 yrs BP: 109/56 mmHg: :Reason For Study: CVA, SVT : :Ordering Physician: RA, : :CASIE Performed By: Yuridia Painting : :Referring: CASIE KNAPP : + + Interpretation Summary The patient was in atrial fibrillation with heart rates between 52-65 bpm during the exam. The study quality was technically difficult. The left ventricle is normal in size and wall thickness. The left ventricular ejection fraction is normal. The ejection fraction is estimated to be 60-65%. The interventricular septum is flattened, consistent with a right ventricular pressure/volume condition. The right ventricle is grossly normal size. Right ventricular systolic function is mildly reduced. Right ventricular systolic function has decreased since previous exam. There is moderate tricuspid regurgitation. Previously mild to moderate TR. The right ventricular systolic pressure is estimated to be at least 58 mmHg based on an estimated right atrial pressure of 8 mm Hg. Previously 57 mmHg. Procedure: The study quality was technically limited. The study quality was technically difficult. Comparison is made with the echocardiogram of 12/31/2022. The apical views were not obtained due to obtainable window, right lung removal. Best images from a right parasternal and subcostal window. The patient was in atrial fibrillation with heart rates between 52-65 bpm during the exam. Left Ventricle: The left ventricle is normal in size and wall thickness. There is no thrombus. The ejection fraction is estimated to be 60-65%. The left ventricular ejection fraction is normal. The interventricular septum is flattened, consistent with a right ventricular pressure/volume condition. Right Ventricle: The right ventricle is grossly normal size. Right ventricular systolic function is mildly reduced. Right ventricular systolic function has decreased since previous exam. Atria: The left atrium grossly appears normal in size. There has been no significant change since the previous study. Right atrium not well visualized. Mitral Valve: There is a flat closure plane of the the mitral valve leaflets. The mitral valve leaflets are mildly calcified. There is trace mitral regurgitation. Aortic Valve: The aortic valve is trileaflet. The aortic valve opens well. The aortic valve is slightly calcified. There is no aortic valve stenosis. There is trace aortic regurgitation. Tricuspid Valve: The tricuspid valve is normal. There is moderate tricuspid regurgitation. The right ventricular systolic pressure is estimated to be at least 58 mmHg based on an estimated right atrial pressure of 8 mm Hg. Pulmonic Valve: The pulmonic valve leaflets are thin and pliable; valve motion is normal. There is trace pulmonic regurgitation. Great Vessels: The aortic root is normal size. The dimensions of the ascending aorta are normal. The IVC is of normal diameter and collapses less than 50% with a sniff. This suggests a right atrial pressure of 8 mm Hg. Pericardium/ Pleura There is no pericardial effusion. There is no pleural effusion. MMode/2D Measurements & Calculations LVIDd: 4.0 cm LVOT diam: 2.0 cm LVIDs: 2.5 cm Ao root diam: 2.6 cm FS: 36.3 % asc Aorta Diam: 2.5 cm IVSd: 0.92 cm LVPWd: 0.84 cm LV bird. diameter/BSA (cm/m^2): 2.9 LV sys. diameter/BSA (cm/m^2): 1.9 IVC diam: 1.7 cm Doppler Measurements & Calculations Ao V2 max: 143.1 cm/sec LVOT Max Kaiden: 61.1 cm/sec Ao V2 mean: 92.4 cm/sec LV V1 max P.5 mmHg Ao max P.2 mmHg LV V1 VTI: 11.9 cm Ao mean P.0 mmHg LUIS A(I,D): 1.2 cm2 Ao V2 VTI: 29.9 cm LUIS A(V,D): 1.3 cm2 sev ratio: 0.40 LUIS A indexed to BSA (cm^2/m^2): 0.88 TR max kaiden: 353.3 cm/sec SV(LVOT): 36.0 ml TR max P.9 mmHg PA V2 max: 82.8 cm/sec PA V2 mean: 54.8 cm/sec PA mean P.3 mmHg PA pr(Accel): 29.3 mmHg Reading Physician:06:32 PM
[2023-04-12] MEDS: ADENOSINE 6 MG/2 ML VIAL 12 MG IV (12:36)
--- NOTE | 2023-04-12 12:46 | PC.NURSE ---
Patient is A&OX4. VSS, afebrile. She reports she was given two tabs of hydrocodone early this a.m. with good effect for increased pain to LLE. She tolerated the pain medication well. She is given all of her scheduled a.m. medications along with prn hydrocodone and miralax. She complains of not having a BM x3 days and no effect after taking PRN miralax with scheduled colace yesterday. MD notified and receive PRN order for bisacodyl suppository. Patient is working with PT this a.m. and HR reaches 150, with activity however returns to controlled rate. Approximately 11 a.m. HR sustaining in 140's. [employer] notified RN and paged MD Puckett. Received orders for patient to perform valsalva maneuver and STAT EKG which confirmed SVT. BP at this time is 98/56, HR 144.Patient attempted to bear down multiple times without change in HR. She is sitting up in the chair, she denies feeling palpitations, or dizzy, SOB or chest pain. MD Puckett informed to cancel patient discharge today and transfer patient to ICU. arrived to Bedside. Patient's step daughter at bedside very supportive.
--- NOTE | 2023-04-12 12:59 | PM.PN.1 ---
Subjective Subjective Date Patient Seen: 04/12/23 Interval history: Pt reports feeling well this morning. She started taking her pain medication more frequently, and has noticed a significant difference in her pain control. She has been able to transfer more successfully as well. She denies any specific concerns, and feels ready for discharge. Exam Vital Signs (past 8 hours): - 04/12/23 07:00 04/12/23 08:00 04/12/23 08:00 Temperature 97.7 F Pulse Rate 63 Respiratory Rate 18 Pulse Oximetry 93 96 Oxygen Delivery Method Room Air Room Air Oxygen Flow Rate 0 Fraction of Inspired Oxygen 21 SaO2/FiO2 Ratio 442 Oxygen Delivery Method Room Air Oxygen Flow Rate 0 Narrative Exam Narrative: Gen: NAD, sitting comfortably in chair, appears well CV: RRR, grade 2/6 systolic murmur Resp: clear to auscultation bilaterally Abd: soft, nontender, nondistended Ext: no edema Objective Labs 04/12/23 06:20 04/12/23 06:20 Labs: Laboratory Results - last 24 hr 04/12/23 06:20 WBC 5.5 RBC 3.68 L Hgb 10.4 L Hct 31.6 L MCV 86.0 MCH 28.3 MCHC 32.9 RDW 14.8 Plt Count 277 Neut % (Auto) 69.4 Lymph % (Auto) 17.1 L [place] % (Auto) 11.6 Eos % (Auto) 1.5 L Baso % (Auto) 0.4 Neut # (Auto) 3800 Lymph # (Auto) 900 L [place] # (Auto) 600 Eos # (Auto) 100 Baso # (Auto) 0 Sodium 134 L Potassium 3.8 Chloride 96 L Carbon Dioxide 34 H BUN 17 Creatinine 0.58 Estimated GFR > 60 BUN/Creatinine Ratio 29.3 H Glucose 95 Calcium 9.1 [facility] Medical History Easy bruisability History of cardioversion Anticoagulation goal of INR 2.0 to 2.5 Raynauds syndrome (12/14/10) Atrial fibrillation with RVR COPD (chronic obstructive pulmonary disease) Uterine cancer (1994) Ovarian cancer (1994) Osteoporosis (2015) Osteoarthritis Atrial fibrillation (2013) Hypertension Lung cancer (2006) Surgical History Anesthesia History of pneumonectomy (05/23/08) History of oophorectomy (1994) History of hip replacement (01/2013) History of breast augmentation (1992) History of bilateral salpingo-oophorectomy (BSO) Status post hysterectomy (1994) Family History Father Hypertension Prostate cancer Grandfather Stroke Grandmother Diabetes mellitus Mother Diabetes mellitus, type II Hypertension Stroke Grandfather No problems noted. Grandmother No problems noted. Social History marital status: unmarried,single household members: none lives independently: Yes pets and animals: Yes education level: college occupational status: other Smoking Status: Former smoker Tobacco: How many years used: 19 second hand exposure: No alcohol intake: current substance use type: does not use Assessment & Plan Assessment & Plan narrative: #SVT Pt with new sustained episode of SVT this morning, not resolved with Valsalva. HR in the 130s-140s persistently. BP in the 110s/60s. Pt with mild chest discomfort/lightheadedness. After informed consent, the pt was given 6mg Adenosine. HR did not respond. She was then given 12mg Adenosine. Pt with an approximately 20 second pause, but then returned to SVT in the 110-130s. After informed consent, the decision was made to proceed with Cardioversion. She was sedated successfully with 40mg of Propofol. She was then cardioverted at 120J x1, with successful improvement in HR to the 60-70s, in atrial fibrillation. After cardioversion, the pt required brief oxygen support due to apnea. She then recovered well. Pt now stable. - Metoprolol 5mg IV PRN for HR sustained > 120 - Continue telemetry #Non-displaced greater trochanter periprosthetic fracture Pain better controlled now. - Ortho consulted, appreciate recommendations. Did not recommend surgical treatment at this time. - Protected weight-bearing with a walker and fall precautions. No active abduction for 6 weeks. Follow up with Dr. Hough 1-2 weeks after discharge. 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 Off anticoagulation currently due to recurrent falls. - Start statin - Aspirin daily #Atrial fibrillation See above regarding SVT. -Continue home medications -Holding Coumadin due to recurrent falls -Aspirin daily #Recurrent falls Pt without associated chest pain, SOB to suggest cardiac etiology. No suggestive symptoms of seizure. No acute neurological findings on exam, did see CVA on MRI during this hospitalization. - Will need outpatient PT for balance #COPD Stable - Continue home Spiriva #HTN BP stable - Continue home Carvedilol FEN: General diet Code: Full code DVT ppx: Lovenox Dispo: Pt stable for d/c home until SVT this morning. Plan for discharge home tomorrow pending no further cardiac events. Pt will discharge to her step-daughter's care, who is a retired PT, who also has her to help with transfers.
[2023-04-12] MEDS: propofoL 200 MG/20 ML VIAL IV (13:00)
--- NOTE | 2023-04-12 13:20 | OT.IP.TRT ---
Current Diagnoses Effusion, left knee (04/09/23) Pain in left hip (04/09/23) Periprosthetic fracture around internal prosthetic left hip joint, initial encounter (04/09/23) Periprosthetic fracture around other internal prosthetic joint, initial encounter (04/09/23) Pain due to internal orthopedic prosthetic devices, implants and grafts, initial encounter (04/09/23) Unspecified fall, subsequent encounter (04/09/23) Presence of unspecified artificial hip joint (04/09/23) Presence of left artificial knee joint (04/09/23) Occupational Therapy Treatment Note M2 OT-IP Current Condition Start: 04/11/23 12:05 Freq: Status: Active Protocol: Document 04/11/23 10:10 [facility] (Rec: 04/11/23 12:27 [facility] [id number]) Occupational Therapy Current Condition Current Condition Evaluation Date 04/11/23 Treatment Diagnosis Left non-displaced greater trochanter periprothetic fx Diagnosis Onset Date 04/09/23 Weight Bearing Status Weight Bearing Status Touch Down Weight Bearing Allowed Weight Bearing Amount (enter % TTWB for LLE or #) (%) NO Active Abduction for LLE M3 OT- IP Subjective and Pain Start: 04/11/23 12:05 Freq: Status: Active Protocol: Document 04/12/23 13:20 [facility] (Rec: 04/12/23 15:46 [facility] [id number]) OT- Subjective Occupational Therapy Visit Type Type Treatment Note Visit Start Time 13:20 Visit Stop Time 13:28 Occupational Therapy Visit Comments Patient Comments Pt just having completed cardioversion and therefore just able to talk pt and her step daughter regarding ADL needs. Patient/Caregiver Goals TO get better. M4 OT- IP ADL's Start: 04/11/23 12:05 Freq: Status: Active Protocol: Document 04/12/23 13:20 [facility] (Rec: 04/12/23 15:46 [facility] [id number]) OT ADL-Toileting Comments OT Toileting Comments Talked to pt and step daughter that BSC will be best to have to use at night. OT ADL-Bathing Comments OT Bathing Comments Pt's step daughter has a walk in shower, however as pt is very limited with mobility may be best to have a tub bench and roll her wc closer so able to transfer to get into the shower. M5 OT- IP IADL's Start: 04/11/23 12:05 Freq: Status: Active Protocol: Document 04/11/23 10:10 [facility] (Rec: 04/11/23 12:27 [facility] [id number]) OT-Instrumental Activities of Daily Living Deficits IADL Deficits Identified Deficits Home Safety Awareness Awareness of Need for Assistance at Home Good Awareness Ability to Problem Solve Emergency Able to Problem Solve Situations Medication Management Medication Management Comments Pt did prior but would benefit from at least supervision at this time. Money Management Money Management Comments Pt would benefit from assist at this time. Meal Preparation Meal Preparation Comments Pt will need assist. Dairy Husbandry Teacher Dairy Husbandry Teacher Comments Pt will need assist. M6 OT- IP Functional Cognition Start: 04/11/23 12:05 Freq: Status: Active Protocol: Document 04/11/23 10:10 [facility] (Rec: 04/11/23 12:27 [facility] [id number]) Cognitive Factors Limiting Selfcare Function Cognitive Ability Level of Alertness Alert Patient Orientation Name,Age,Birthday,Month,Date, Year,Day of Week,Place, Situation Attention Span Ability Capable of Focused Attention, Capable of Sustained Attention Ability to Follow Commands Able to Follow One Step Commands Memory Description Short Term Impaired Cognitive Tests SLUMS Pt scored 24/30 which implies mild cognitive deficits. 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 Pt also has had 3 falls since x-mas and also has hit her head as well from falling. Cognitive Comments Cognitive Assessment Comments Pt admits to recently not thinking as well. OT- Vision and Hearing OT- Hearing Assessment OT- Hearing Assessment WFL OT- Vision Assessment Visual Acuity Glasses For Reading Visual Attentiveness WFL Occular Pursuits WFL M8 OT- IP Objective Assessments Start: 04/11/23 12:05 Freq: Status: Active Protocol: Document 04/11/23 10:10 [facility] (Rec: 04/11/23 12:27 [facility] [id number]) OT Gross Range of Motion Upper Extremity Range of Motion Assessment Left Impaired OT Strength Upper Extremity Strength Assessment Left Impaired OT- Coordination Assessment Upper Extremity Finger to Nose Test Within Functional Limits Finger Tapping Test Within Functional Limits OT-Muscle Tone Assessment Muscle Tone WNL Yes M9 OT- IP Assessment and Plan Start: 04/11/23 12:05 Freq: Status: Active Protocol: Document 04/12/23 13:20 [facility] (Rec: 04/12/23 15:46 [facility] [id number]) OT Summary Assessment and Plan Potential Rehabilitation Potential Good Analytic Complexity at Evaluation Moderate Summary OT Impairments Pain,Strength,Balance, Functional Cognition, Functional Mobility,Grooming, Dressing,Toileting,Bathing, Toilet Transfers,Shower Transfers,Activity Tolerance Progress Towards Goals Slow Progress due to Medical Issues,Slow Progress due to Activity Tolerance Assessment Summary Pt's step daughter present to talk about OT equipment needs especially for the shower and toileting needs. Also suggested for her step daughter to provide supervision for bills and medications at this time as pt having decreased short term memory and seems to be having more difficulty with her thinking especially after her falls. Pending medical needs, pt to go home with her step daughter with 24/7 assist. Pt may also benefit from home health. Goals Self-Feeding Goal Independent Grooming Goal Independent Dressing Goal Standby Assistance Toileting Goal Standby Assistance Bathing Goal Minimal Assistance Toilet Transfer Goal Independent Shower Transfer Goal Contact Guard Assistance Days to Meet Goals 20 Frequency of Treatment Frequency Of Treatment Once a Day Treatment Plan OT Treatment Plan ADL Training,Functional Cognition Training,Functional Mobility,Patient/Family Education,Discharge Planning Discharge Recommendations OT Discharge Recommendations Home with 24/7 Assist Available,Home Health Transportation Needs at Discharge Private Vehicle
--- NOTE | 2023-04-12 15:45 | PC.NURSE ---
Dayshift note: It was noted by this nurse that pt was in SVT HR in the 130-140s sustained BP 110/60, pt notes mild chest pressure and dizziness, stat EKG, notified Ellie SOTELO and Dr Puckett, pt being moved to ICU in anticipation of Adenosine being pushed. 1220 after informed consent, Dr Puckett, chacho Guzman RN, charge nurse Kathleen RN and this nurse at bedside, pushed 6mg Adenosine, no response from HR. 1236 chacho Harrell RN, charge nurse Kathleen RN and this nurse at bedside, pushed 12mg Adenosine, pt had a 20 second pause, then returned to SVT with rate 110-120s. 1300 Decision was made to cardiovert pt, informed consent was obtained, RT Esteban, Dr Puckett, Dr Tolentino, chacho Guzman RN, charge nurse Luis Manuel, and this nurse at bedside 1310 sedated with 40mg Propofol IVP 1312 pt was shocked with 120J x1, HR dropped to 60-70s with AFIB as rate, pt required O2 support due to apnea 1317 Pt recovered well Pt rate goes between AFib CVR and NSR, tolerated procedure well, will remain in ICU for further monitoring no further needs at this time
[2023-04-12] MEDS: ATORVASTATIN 20 MG TABLET 10 MG PO (21:39)
[2023-04-12] MEDS: HYDROCODONE/ACET 5/325 TABLET 1 TAB PO (23:11)
[2023-04-13] VITALS (19 sets, daily range): BP systolic 107–129; BP diastolic 53–69; PULSE 48–85; RESP 13–40; TEMP 36.9; O2SAT 85–100
[2023-04-13] MEDS: HYDROCODONE/ACET 5/325 TABLET 2 TAB PO ×2 (04:13→10:15)
[2023-04-13 05:02] LABS: Alanine Aminotransferase 17 IU/L (<35); Albumin 3.1 g/dL (3.5-5.0); Alkaline Phosphatase 55 U/L (38-126); Aspartate Aminotransferase 27 IU/L (14-36); BUN Creatinine Ratio 31.9 (6-22); Bilirubin Total 0.6 mg/dL (0.2-1.3); Blood Urea Nitrogen 23 mg/dL (7-17); Calcium 9.2 mg/dL (8.4-10.2); Carbon Dioxide 36 mmol/L (22-32); Chloride 96 mmol/L (98-107); Estimated Glomerular Filt Rate > 60 mL/min (>60); Globulin 3.1 g/dL (1.7-4.1); Glucose 94 mg/dL (80-110); HEMOLYSIS < 15 (0-50); Sodium 133 mmol/L (137-145); Total Protein 6.2 g/dL (6.3-8.2)
[2023-04-13] MEDS: polyethylene glycoL 3350 17 GM POWD.PACK PO (08:05)
[2023-04-13] MEDS: CALCIUM CARBONATE 500 MG TAB 1000 MG PO (08:05)
[2023-04-13] MEDS: carvediloL 3.125 MG TABLET 6.25 MG PO (08:05)
[2023-04-13] MEDS: DOCUSATE 100 MG CAPSULE PO (08:06)
[2023-04-13] MEDS: CHOLECALCIFEROL (VITAMIN D3) 400 UNIT TABLET PO (08:06)
[2023-04-13] MEDS: AMLODIPINE 5 MG TABLET 2.5 MG PO (08:06)
[2023-04-13] MEDS: FUROSEMIDE 40 MG TABLET PO (08:06)
[2023-04-13] MEDS: ENOXAPARIN 30 MG/0.3 ML SYRINGE SUBCUT (08:07)
[2023-04-13] MEDS: FLECAINIDE 100 MG TABLET PO (08:09)
[2023-04-13] MEDS: SODIUM CHLORIDE 0.9% FLUSH 10 ML IV (08:09)
--- NOTE | 2023-04-13 10:34 | P.PN_ITS ---
Subjective Subjective Date Patient Seen: 04/13/23 Time Patient Seen: 10:34 Interval history: Pts discharge yesterday was postponed d/t SVT. Pt currently sitting up in chair w/ daughter at side; sounds like she has been stable and plan if for discharge today. Exam Vital Signs (past 8 hours): - 04/13/23 03:00 04/13/23 03:00 04/13/23 03:30 Temperature Pulse Rate 55 L 71 Respiratory Rate 15 18 Blood Pressure 119/59 L Pulse Oximetry 96 93 Oxygen Delivery Method 04/13/23 04:00 04/13/23 04:00 04/13/23 04:30 Temperature Pulse Rate 63 75 Respiratory Rate 22 25 H Blood Pressure 129/65 Pulse Oximetry 99 Oxygen Delivery Method 04/13/23 05:00 04/13/23 05:00 04/13/23 05:30 Temperature Pulse Rate 73 52 L Respiratory Rate 32 H 17 Blood Pressure Pulse Oximetry 99 Oxygen Delivery Method Nasal Cannula 04/13/23 06:00 04/13/23 06:30 04/13/23 07:00 Temperature Pulse Rate 67 48 L 67 Respiratory Rate 19 17 35 H Blood Pressure Pulse Oximetry 99 99 98 Oxygen Delivery Method 04/13/23 07:00 04/13/23 07:30 04/13/23 08:00 Temperature Pulse Rate 59 L 72 Respiratory Rate 35 H 40 H Blood Pressure Pulse Oximetry 100 98 100 Oxygen Delivery Method Room Air 04/13/23 08:05 04/13/23 08:14 04/13/23 09:00 Temperature 98.4 F Pulse Rate 85 Respiratory Rate Blood Pressure 129/69 Pulse Oximetry Oxygen Delivery Method Room Air Fraction of Inspired Oxygen 21 SaO2/FiO2 Ratio 442 Oxygen Delivery Method Room Air Oxygen Flow Rate 2 Narrative Exam Narrative: 5/5 strength in hip flexors, quadriceps, hamstrings, DF, PF, EHL on left. Sensation to light touch intact throughout LLE. Calf soft and compressible. Resolving ecchymosis about left knee. Objective Labs 04/12/23 06:20 04/13/23 04:00 Labs: Laboratory Results - last 24 hr 04/13/23 04:00 Sodium 133 L Potassium 4.0 Chloride 96 L Carbon Dioxide 36 H BUN 23 H Creatinine 0.72 Estimated GFR > 60 BUN/Creatinine Ratio 31.9 H Glucose 94 Calcium 9.2 Magnesium 2.0 Total Bilirubin 0.6 AST 27 ALT 17 Alkaline Phosphatase 55 Total Protein 6.2 L Albumin 3.1 L Globulin 3.1 Albumin/Globulin Ratio 1.0 TSH 2.90 [facility] Medical History Easy bruisability History of cardioversion Anticoagulation goal of INR 2.0 to 2.5 Raynauds syndrome (12/14/10) Atrial fibrillation with RVR COPD (chronic obstructive pulmonary disease) Uterine cancer (1994) Ovarian cancer (1994) Osteoporosis (2015) Osteoarthritis Atrial fibrillation (2013) Hypertension Lung cancer (2006) Surgical History Anesthesia History of pneumonectomy (05/23/08) History of oophorectomy (1994) History of hip replacement (01/2013) History of breast augmentation (1992) History of bilateral salpingo-oophorectomy (BSO) Status post hysterectomy (1994) Family History Father Hypertension Prostate cancer Grandfather Stroke Grandmother Diabetes mellitus Mother Diabetes mellitus, type II Hypertension Stroke Grandfather No problems noted. Grandmother No problems noted. Social History marital status: unmarried,single household members: none lives independently: Yes pets and animals: Yes education level: college occupational status: other Smoking Status: Former smoker Tobacco: How many years used: 19 second hand exposure: No alcohol intake: current substance use type: does not use Assessment & Plan Assessment and plan (1) Periprosthetic fracture around internal prosthetic hip joint: Qualifiers: Encounter type: initial encounter Laterality: left Qualified Code(s): M97.02XA - Periprosthetic fracture around internal prosthetic left hip joint, initial encounter Status: Acute Plan: Currently, no surgical intervention required. Clarified activity modifications w/ pt and daughter: pt can be WBAT to left leg but must be using walker and have at least standby assistance at all times. No ABduction at the hip for 6 weeks. (2) Painful total knee replacement, left: Qualifiers: Encounter type: initial encounter Qualified Code(s): T84.84XA - Pain due to internal orthopedic prosthetic devices, implants and grafts, initial encounter; Z96.652 - Presence of left artificial knee joint Status: Acute Plan: Sent message to Dr Hough's office for scheduling preference of 04/23 for follow up appt. At that time, we will obtain radiographs of left knee and left hip and plan treatment accordingly.
--- NOTE | 2023-04-13 11:42 | PM.DS.1 ---
History of Present Illness History of Present Illness Date Patient Seen: 04/13/23 Chief complaint: GLF, Left Knee Pain Narrative: Pt is an 82 y/o F w h/o falls, afib (on warfarin), here for acute onset of leg pain. On Saturday pt had a fall at [employer]. States that she was exiting the pew and fell into the isle onto her left hip. Was not in significant pain at the time but did need to have some help back to her feet. Denies hitting head, LOC, heart palpitations, or dizziness. States that she thinks she may have taken a bad step. She drove herself home later that day and then decided to drive herself to the emergency department to be check out. She did this because she noticed some dull pain at the time. ED visit (04/06/23): stopped warfarin. Hip imaging was not concerning for any acute trauma. Yesterday (04/09/23): While bending over to put her shoe on felt sudden severe pain radiating down her left thigh to her knee cap. Pain was so severe that she could not walk so called 911. Upon arrival to ED imaging significant for nondisplaced greater trochanter periprothetic fracture. Orthopedic surgery is now currently following. Denies chest pain, dizziness, heart palpitations, SOB, LOC. The pt has had 3 traumatic falls in the last month. She denies any precipitating event for any of them. She does not specifically recall tripping either though. She is uncertain why she keeps falling. She lives at home independently. Discharge Providers Provider Date of admission: 04/09/23 23:12 Discharge Date: 04/13/23 Primary care physician: Rosio Puckett MD Consults: 04/09/23 23:56 Consult to Occupational Therapy Evaluate & Treat Comment: Tania-prosthetic femoral shaft fracture Physician Instructions: Evaluate and treat Consult to Physical Therapy Evaluate & Treat Comment: L Toby fx + knee pain - protected WB- no active ABD Physician Instructions: Evaluate and Treat 04/10/23 06:54 Consult to Orthopedic Surgery Routine Comment: Consulting Provider: Paulette Mejía Reason for consultation: PERIPROSTHETIC FRACTURE Has provider been notified: Yes Discharge provider: Rosio Puckett MD Summary Hospital Course Discharge Diagnosis: Non-displaced greater trochanter periprosthetic fracture CVA SVT Atrial fibrillation Recurrent falls COPD HTN Hospital Course: The pt presented with hip fracture. Ortho was consulted, who did not recommend operative management. The pt worked with PT while in the hospital, and her pain remained well controlled. 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 She was started on a statin. Her Coumadin continued to be held due to her recurrent falls, but she was started on a baby Aspirin. The day prior to discharge, the pt went into sustained SVT. It was not responsive to adenosine at 6mg or 12mg dosing. She underwent cardioversion while sedated with propofol, with successful conversion to her baseline atrial fibrillation with normal rate, without any complications. The pts HR remained < 100 the remainder of her hospitalization. She is discharging home with her step-daughter who is a recently retired physical therapist, and is willing to do active PT with the pt regularly. She will need f/u with ortho and cardiology as an outpatient. She will need formal PT for her hip and balance once she is able to bear more weight on the joint as well. Status at Discharge Cognitive/behavioral status at discharge: oriented Exam Vital Signs (past 8 hours): - 04/13/23 04:00 04/13/23 04:00 04/13/23 04:30 Temperature Pulse Rate 63 75 Respiratory Rate 22 25 H Blood Pressure 129/65 Pulse Oximetry 99 Oxygen Delivery Method 04/13/23 05:00 04/13/23 05:00 04/13/23 05:30 Temperature Pulse Rate 73 52 L Respiratory Rate 32 H 17 Blood Pressure Pulse Oximetry 99 Oxygen Delivery Method Nasal Cannula 04/13/23 06:00 04/13/23 06:30 04/13/23 07:00 Temperature Pulse Rate 67 48 L 67 Respiratory Rate 19 17 35 H Blood Pressure Pulse Oximetry 99 99 98 Oxygen Delivery Method 04/13/23 07:00 04/13/23 07:30 04/13/23 08:00 Temperature Pulse Rate 59 L 72 Respiratory Rate 35 H 40 H Blood Pressure Pulse Oximetry 100 98 100 Oxygen Delivery Method Room Air 04/13/23 08:05 04/13/23 08:14 04/13/23 09:00 Temperature 98.4 F Pulse Rate 85 Respiratory Rate Blood Pressure 129/69 Pulse Oximetry Oxygen Delivery Method Room Air Fraction of Inspired Oxygen 21 SaO2/FiO2 Ratio 442 Oxygen Delivery Method Room Air Oxygen Flow Rate 2 Narrative Exam Narrative: Gen: NAD, sitting comfortably in chair, appears well CV: irregularly irregular rhythm, normal rate, grade 2/6 systolic murmur Resp: clear to auscultation bilaterally Ext: no edema Objective Labs 04/12/23 06:20 04/13/23 04:00 Labs: Laboratory Results - last 24 hr 04/13/23 04:00 Sodium 133 L Potassium 4.0 Chloride 96 L Carbon Dioxide 36 H BUN 23 H Creatinine 0.72 Estimated GFR > 60 BUN/Creatinine Ratio 31.9 H Glucose 94 Calcium 9.2 Magnesium 2.0 Total Bilirubin 0.6 AST 27 ALT 17 Alkaline Phosphatase 55 Total Protein 6.2 L Albumin 3.1 L Globulin 3.1 Albumin/Globulin Ratio 1.0 TSH 2.90 [facility] Medical History Easy bruisability History of cardioversion Anticoagulation goal of INR 2.0 to 2.5 Raynauds syndrome (12/14/10) Atrial fibrillation with RVR COPD (chronic obstructive pulmonary disease) Uterine cancer (1994) Ovarian cancer (1994) Osteoporosis (2015) Osteoarthritis Atrial fibrillation (2013) Hypertension Lung cancer (2006) Surgical History Anesthesia History of pneumonectomy (05/23/08) History of oophorectomy (1994) History of hip replacement (01/2013) History of breast augmentation (1992) History of bilateral salpingo-oophorectomy (BSO) Status post hysterectomy (1994) Family History Father Hypertension Prostate cancer Grandfather Stroke Grandmother Diabetes mellitus Mother Diabetes mellitus, type II Hypertension Stroke Grandfather No problems noted. Grandmother No problems noted. Social History marital status: unmarried,single household members: none lives independently: Yes pets and animals: Yes education level: college occupational status: other Smoking Status: Former smoker Tobacco: How many years used: 19 second hand exposure: No alcohol intake: current substance use type: does not use Discharge Plan Discharge Plan Patient Disposition: Home Discharge orders & Medications Prescriptions: New acetaminophen 325 mg Tablet 650 mg PO Q6H PRN (Reason: Fever/Mild Pain (1-3)) Qty: 90 0RF docusate sodium 100 mg Capsule 100 mg PO BID Qty: 60 0RF oxycodone 5 mg Tablet 5 mg PO Q3HR PRN (Reason: Pain, Moderate (4-6)) Qty: 30 0RF aspirin 81 mg capsule 81 mg PO DAILY Qty: 90 0RF atorvastatin 20 mg Tablet 10 mg PO BEDTIME Qty: 30 0RF Continued cholecalciferol (vitamin D3) [Vitamin D3] 1,000 UNIT tablet 2,000 units PO DAILY Qty: 0 carvedilol 6.25 mg tablet 6.25 mg PO BID Rx Instructions: must administer with a meal/food (DME) Disabled Parking See Rx Instructions .ROUTE .MEDSUPPLY Qty: 1 0RF Rx Instructions: I find this patient to be medically disabled and qualified for Permanent Disabled Parking as indicated, and signed, on the Accompanying Disabled Parking Application for Individuals tiotropium bromide 18 mcg capsule, w/inhalation device 1 cap inhalation DAILY Qty: 90 3RF Rx Instructions: puncture 1 cap using device; one dose = 2 inhalations furosemide 40 mg tablet 40 mg PO QAM Qty: 30 0RF calcium carbonate-vitamin D3 [Calcium 600 + D(3)] 600 mg(1,500mg) -200 unit Tablet 2 tab PO DAILY multivitamin with minerals Tablet 1 tab PO DAILY flecainide 100 mg Tablet 100 mg PO Q12H amlodipine 2.5 mg Tablet 2.5 mg PO DAILY ferrous sulfate 325 mg (65 mg iron) tablet 325 mg PO Q OTHER DAY Discontinued warfarin 2 mg tablet See Rx Instructions .ROUTE .COMPLEX Qty: 90 1RF Dose Instruction: TAKE 1/2 TABLET ON SATURDAY, TAKE 1 TABLET DAILY ON ALL OTHER DAYS OF THE WEEK OR DIRECTED Rx Instructions: TAKE 1/2 TABLET ON SATURDAY, TAKE 1 TABLET DAILY ON ALL OTHER DAYS OF THE WEEK OR DIRECTED Follow up/Referrals: Rosio Puckett MD [Primary Care Provider] - 2 Weeks Kymberly Hough MD [Physician] - 2 Weeks (Call for appointment. Repeat xrays of left hip and left knee.) Activity Restrictions/Additional Instructions: Please follow up with the orthopedic surgeon for recheck. Continue to use her walker as needed. You may take Tylenol up to a 1000 mg every 6 hours. If inadequate for pain you can take 1 oxycodone every 6 hours as needed. Prescription sent to [facility]. Please return for new or worsening pain, new numbness tingling or weakness, increasing swelling, inability to ambulate, recurrent falls or other new or concerning changes. Diet/Activity/Treatments Diet: Diet as Tolerated and Regular Activity: Weightbearing as tolerated to left leg; use a walker and have assistance at all times. NO active ABDuction x 6 weeks. Cold/Heat Therapy: Ice as needed to knee and hip for pain control Skin/Wound/Dressing Care Report to your healthcare provider any signs of infection, such as:: chills, fever, night sweats, unusual drainage and unusual redness Visit Report/Discharge Packet Instructions: DI for Knee Pain Stand Alone Forms: Patient Portal/API, Stroke Signs & Symptoms Discharge Data Primary Care Provider: Rosio Puckett
--- NOTE | 2023-04-13 12:51 | PT-IP ANOTE ---
Pt reports increased hip pain and fatigue after shower, preparing for DC to step-daughter's house, declines therapy today.
--- NOTE | 2023-04-13 14:02 | CM.DPNOTE ---
DC Note Patient being discharge home w/family today, close outpatient follow up recommended. No addtl CM team needs identified. IMM current. JW
== END 2023-04-13 13:37 | disposition home or self-care (01) | DRG 535 ==
LOC: ED 23:12 → AC 23:13 → ICU 04-12 11:59
PROVIDERS: Family Medicine; Admitting Provider Family Medicine; Emergency Provider Emergency Medicine; PCP Family Medicine; Referring Provider Emergency Medicine; Visit Provider Family Medicine
DX: S72.115A Nondisplaced fracture of greater trochanter of left femur, initial encounter for closed fracture (principal); I63.9 Cerebral infarction, unspecified; M97.02XA Periprosthetic fracture around internal prosthetic left hip joint, initial encounter; T84.84XA Pain due to internal orthopedic prosthetic devices, implants and grafts, initial encounter; I47.10 Supraventricular tachycardia, unspecified; M25.462 Effusion, left knee; I48.91 Unspecified atrial fibrillation; R29.6 Repeated falls; J44.9 Chronic obstructive pulmonary disease, unspecified; I10 Essential (primary) hypertension; K59.00 Constipation, unspecified; X50.1XXA Overexertion from prolonged static or awkward postures, initial encounter; Z87.891 Personal history of nicotine dependence; Z96.652 Presence of left artificial knee joint; M25.552 Pain in left hip; R55 Syncope and collapse; R07.9 Chest pain, unspecified; W18.30XA Fall on same level, unspecified, initial encounter; Z20.822 Contact with and (suspected) exposure to COVID-19; Z79.899 Other long term (current) drug therapy
CPT/HCPCS: 36415; 70450; 70548; 70553; 71045; 72192; 73502; 73562; 73700; 80048; 80053; 81001; 81003; 82550; 83605; 83690; 83735; 83880; 84145; 84443; 84484; 85025; 85610; 85730; 86850; 86900; 86901; 87635; 93005; 93306; 94640; 94760; 97116; 97162; 97166; 97530; 97535; 99223; 99233; 99238; 99284; 99285; 99291; J0153; J1650; J2704

== ENCOUNTER → 2023-05-31 11:40 | Outpatient (CLI) | payer MEDICARE, OTHER, SELFPAY ==
[2023-05-31 12:13] LABS: Add Manual Diff / Slide Review NO; Basophils Absolute Auto 0 /uL (0-100); Basophils Percent Auto 0.4 % (0-2); Eosinophils Absolute Auto 100 /uL (0-450); Eosinophils Percent Auto 0.9 % (2-4); Hematocrit 37.8 % (36-46); Hemoglobin 12.3 g/dL (12.0-16.0); Lymphocytes Absolute Auto 900 /uL (1100-4500); Lymphocytes Percent Auto 13.3 % (25-40); Mean Corpuscular HGB Conc 32.4 % (30-36); Mean Corpuscular Volume 89.5 fL (80-100); Monocytes Absolute Auto 500 /uL (0-900); Monocytes Percent Auto 8.5 % (3-14); Neutrophils Absolute Auto 5000 /uL (1500-7000); Neutrophils Percent Auto 76.9 % (50-75); Platelet Count 237 X10^3/uL (150-400); Red Blood Cell Count 4.23 X10^6/uL (4.0-5.2); Red Cell Distribution Width 16.4 % (11.6-14.8); White Blood Cell Count 6.5 X10^3/uL (4.5-11.0)
[2023-05-31 13:03] LABS: BUN Creatinine Ratio 41.8 (6-22); Blood Urea Nitrogen 28 mg/dL (7-17); Calcium 9.8 mg/dL (8.4-10.2); Carbon Dioxide 36 mmol/L (22-32); Chloride 99 mmol/L (98-107); Estimated Glomerular Filt Rate > 60 mL/min (>60); Glucose 91 mg/dL (80-110); HEMOLYSIS < 15 (0-50); Potassium 4.2 mmol/L (3.4-5.1); Sodium 139 mmol/L (137-145)
== END ==
PROVIDERS: PCP Family Medicine; Referring Provider Internal Medicine Cardiovascular Disease; Visit Provider Internal Medicine Cardiovascular Disease
DX: I49.5 Sick sinus syndrome (principal)
CPT/HCPCS: 36415; 80048; 85025

== ENCOUNTER → 2023-07-02 13:22 | Outpatient (CLI) | payer MEDICARE, OTHER, SELFPAY ==
[2023-07-02 15:14] LABS: Alanine Aminotransferase 18 IU/L (<35); Albumin 4.4 g/dL (3.5-5.0); Albumin Globulin Ratio 1.7 (1.0-2.8); Alkaline Phosphatase 65 U/L (38-126); Aspartate Aminotransferase 28 IU/L (14-36); BUN Creatinine Ratio 41.1 (6-22); Bilirubin Total 0.6 mg/dL (0.2-1.3); Blood Urea Nitrogen 23 mg/dL (7-17); Carbon Dioxide 36 mmol/L (22-32); Chloride 99 mmol/L (98-107); Estimated Glomerular Filt Rate > 60 mL/min (>60); Globulin 2.6 g/dL (1.7-4.1); Glucose 112 mg/dL (80-110); HEMOLYSIS 17 (0-50); Potassium 4.1 mmol/L (3.4-5.1); Sodium 138 mmol/L (137-145)
== END ==
PROVIDERS: PCP Family Medicine; Referring Provider Internal Medicine Cardiovascular Disease; Visit Provider Internal Medicine Cardiovascular Disease
DX: I48.0 Paroxysmal atrial fibrillation (principal)
CPT/HCPCS: 36415; 80053

== ENCOUNTER → 2023-07-19 10:17 | Outpatient (CLI) | payer MEDICARE, OTHER, SELFPAY ==
[2023-07-19 11:34] LABS: Alanine Aminotransferase 19 IU/L (<35); Albumin 4.4 g/dL (3.5-5.0); Albumin Globulin Ratio 1.5 (1.0-2.8); Alkaline Phosphatase 67 U/L (38-126); Aspartate Aminotransferase 30 IU/L (14-36); BUN Creatinine Ratio 40.5 (6-22); Bilirubin Total 0.8 mg/dL (0.2-1.3); Blood Urea Nitrogen 30 mg/dL (7-17); Calcium 10.3 mg/dL (8.4-10.2); Carbon Dioxide 36 mmol/L (22-32); Chloride 98 mmol/L (98-107); Estimated Glomerular Filt Rate > 60 mL/min (>60); Glucose 83 mg/dL (80-110); HEMOLYSIS < 15 (0-50); Potassium 4.3 mmol/L (3.4-5.1); Sodium 139 mmol/L (137-145); Total Protein 7.4 g/dL (6.3-8.2)
[2023-07-19 11:47] LABS: Free T4, Direct Thyroxine 1.65 ng/dL (0.78-2.19)
== END ==
PROVIDERS: PCP Family Medicine; Referring Provider Internal Medicine Cardiovascular Disease; Visit Provider Internal Medicine Cardiovascular Disease
DX: I48.0 Paroxysmal atrial fibrillation (principal)
CPT/HCPCS: 36415; 80053; 84439; 84443

== ENCOUNTER → 2023-08-09 08:03 | Outpatient (CLI) | payer MEDICARE, OTHER, SELFPAY ==
[2023-08-09 09:15] LABS: Cholesterol 124 mg/dL (140-199); HDL Cholesterol 73 mg/dL (40-60); LDL Cholesterol Calculated 38 mg/dL (<100); Triglycerides 65 mg/dL (35-150)
== END ==
PROVIDERS: PCP Family Medicine; Referring Provider Internal Medicine Hematology & Oncology; Visit Provider Internal Medicine Hematology & Oncology
DX: E78.5 Hyperlipidemia, unspecified (principal)
CPT/HCPCS: 36415; 80061

== ENCOUNTER 2023-08-14 03:41 | Inpatient (IN) | payer MEDICARE, OTHER, SELFPAY ==
[2023-08-14] VITALS (21 sets, daily range): BP systolic 108–163; BP diastolic 47–83; PULSE 63–86; RESP 14–22; TEMP 36.4–37.6; O2SAT 90–100; BMI 29.0
--- NOTE | 2023-08-14 03:42 | DI.RAD.S_ITS ---
PROCEDURE: XR HIP W PEL IF DONE RT 2V INDICATIONS: R hip pain after fall TECHNIQUE: AP pelvis with lateral view(s) of the right hip(s). COMPARISON: , CT, CT PEL WO CON, 08/14/2023, 4:50. , CR, XR HIP W PEL IF DONE LT 2V, 04/06/2023, 18:53. FINDINGS: Bones: Subtle fractures at the right pubic symphysis and inferior pubic ramus. Probable fracture of the left pubic symphysis. No dislocations. Pelvic ring appears intact. No suspicious bony lesions. Bilateral hip arthroplasties. No periprosthetic lucency demonstrated. Soft tissues: The visualized bowel gas pattern is normal. No suspicious soft tissue calcifications. Surgical clips in the right pelvis. IMPRESSION: Fracture of the bilateral pubic symphysis and right inferior pubic ramus. This report is discordant with the overnight preliminary interpretation. Please see subsequently dictated CT pelvis. Dictated by: Ramy Navas M.D. on 08/14/2023 at 8:09 Approved by: Ramy Navas M.D. on 08/14/2023 at 8:13
[2023-08-14] MEDS: ALBUTEROL/IPRATROPIUM 3 ML AMPUL INH (04:10)
--- NOTE | 2023-08-14 04:42 | ED_ITS ---
HPI - Fall General Chief Complaint: Fall Stated Complaint: GL fall rt hip pain Time Seen by Provider: 08/14/23 03:42 Source: patient and EMS Mode of arrival: EMS History of Present Illness HPI Narrative: Patient is an 82-year-old female who last evening was standing in her bathroom trying to do some balance exercises by standing with 1 ft in front of the other when she lost her balance and fell and landed on her right hip. She did not hit her head. No loss of consciousness. No neck pain. She was not on anticoagulation. She stated that she could not stand because weakness and pain. She was able to crawl in order to get her phone and called neighbors who came to help her up and put her into a chair. She states that she tried to get up to go to the bathroom this morning and was unable to put any pressure on her right lower extremity so EMS was called. She was unable to stand with the EMS. She does have a history of COPD. Was found to be hypoxic into the mid to upper 80s by EMS. She was placed on 2 L of oxygen by nasal cannula. She was not normally on oxygen. No chest pain. No other injuries from the fall. Related Data Home Medications Medication Instructions Recorded Confirmed cholecalciferol (vitamin D3) 25 2,000 units PO DAILY ##0 06/19/16 04/10/23 mcg (1,000 unit) tablet (Vitamin D3) calcium carbonate 600 mg-vitamin 2 tab PO DAILY 06/24/18 04/10/23 D3 5 mcg (200 unit) tablet (Calcium 600 + D(3)) multivitamin with minerals 1 tab PO DAILY 06/24/18 04/10/23 carvedilol 6.25 mg tablet 6.25 mg PO BID 10/23/19 04/10/23 flecainide 100 mg tablet 100 mg PO Q12H 01/25/20 04/10/23 amlodipine 2.5 mg tablet 2.5 mg PO DAILY 05/25/21 04/10/23 ferrous sulfate 325 mg (65 mg 325 mg PO Q OTHER DAY 01/09/23 04/10/23 iron) tablet Previous Rx's Medication Instructions Recorded Disabled Parking #1 ea 07/03/22 tiotropium bromide 18 mcg capsule 1 cap inhalation DAILY #90 12/04/22 with inhalation device inhalations acetaminophen 325 mg tablet 650 mg (2 x 325 mg) PO Q6H PRN 04/12/23 Fever/Mild Pain (1-3) #90 tabs aspirin 81 mg capsule 81 mg PO DAILY #90 caps 04/12/23 docusate sodium 100 mg capsule 100 mg PO BID #60 caps 04/12/23 oxycodone 5 mg tablet 5 mg PO Q3HR PRN Pain, Moderate 04/12/23 (4-6) #30 tabs furosemide 40 mg tablet 40 mg PO QAM #90 tabs 04/15/23 atorvastatin 20 mg tablet 10 mg (1/2 x 20 mg) PO BEDTIME #45 08/08/23 tabs Allergies Allergy/AdvReac Type Severity Reaction Status Date / Time No Known Drug Allergies Allergy Verified 04/09/23 13:39 Review of Systems Review of Systems Narrative: See HPI Patient History Medical History Easy bruisability History of cardioversion Anticoagulation goal of INR 2.0 to 2.5 Raynauds syndrome (12/14/10) Atrial fibrillation with RVR COPD (chronic obstructive pulmonary disease) Uterine cancer (1994) Ovarian cancer (1994) Osteoporosis (2015) Osteoarthritis Atrial fibrillation (2013) Hypertension Lung cancer (2006) Surgical History Anesthesia History of pneumonectomy (05/23/08) History of oophorectomy (1994) History of hip replacement (01/2013) History of breast augmentation (1992) History of bilateral salpingo-oophorectomy (BSO) Status post hysterectomy (1994) Family History Father Hypertension Prostate cancer Grandfather Stroke Grandmother Diabetes mellitus Mother Diabetes mellitus, type II Hypertension Stroke Grandfather No problems noted. Grandmother No problems noted. Social History marital status: unmarried,single household members: none lives independently: Yes pets and animals: Yes education level: college occupational status: other Smoking Status: Former smoker Tobacco: How many years used: 19 second hand exposure: No alcohol intake: current substance use type: does not use Smoking Status: Former smoker alcohol intake frequency: holidays/special occasions only Substance Use Type: does not use Exam Initial Vital Signs Initial Vital Signs: Vital Signs Temperature 98.1 F 08/14/23 04:12 Pulse Rate 79 08/14/23 04:12 Respiratory Rate 22 08/14/23 04:12 Blood Pressure 153/72 H 08/14/23 04:12 Pulse Oximetry 97 08/14/23 04:12 Oxygen Delivery Method Nasal Cannula 08/14/23 04:12 Oxygen Flow Rate 2 08/14/23 04:12 Const General: cooperative, comfortable and No ill appearing HENMT Head: normal to inspection and normocephalic Resp Effort & Inspection: normal respiratory effort Auscultation: clear to auscultation bilaterally Cardio Rate: regular rate Rhythm: regular rhythm Back/Spine/Pelvis Thoracic/Lumbar Spine: No lumbar spinal tenderness Skin General: no rashes or lesions noted Neuro General: patient alert, patient awake, patient oriented x3 and moves all extremities Extrem Other: Discomfort to palpation of the right hemipelvis. Patient is unable to lift her leg up off of the bed. Has discomfort with internal and external rotation. Scores [facility] [place] coma scale eye opening: Spontaneous [place] coma scale verbal response: Orientated [place] coma scale motor response: Obey commands [place] coma scale total score: 15 Course Orders Ordered: ED Orders 08/14/23 03:42 XR hip w pel if done RT 2V Stat 08/14/23 04:43 CT pelvis wo con Stat 08/14/23 06:06 Consult to Orthopedic Surgery Stat Discontinued Medications Hydrocodone Bitart/Acetaminophen (Hydrocodone/Acet 5/325 Tablet) 1 tab PO NOW ONE Stop: 08/14/23 04:44 Last Admin: 08/14/23 04:50 Dose: 1 tab Documented By: CHRISTIAN Albuterol/Ipratropium (Albuterol/Ipratropium 3 Ml Ampul) 3 ml INH NOW ONE Stop: 08/14/23 04:01 Last Admin: 08/14/23 04:10 Dose: 3 ml Documented By: Vital Signs Vital signs: Vital Signs - 8 hr 08/14/23 04:12 Temperature 98.1 F Pulse Rate 79 Respiratory Rate 22 Blood Pressure 153/72 H Pulse Oximetry 97 Oxygen Delivery Method Nasal Cannula Oxygen Flow Rate 2 MDM - Fall Imaging Data Extremity x-ray #1: Radiologist's Impression: No acute traumatic injuries identified. If findings are equivocal on clinical exam consider CT scan CT pelvis: Radiologist's Impression: Minimally displaced right inferior pubic ramus fracture and cortical irregularity of the left pubic symphysis possibly a nondisplaced fracture. [facility] Narrative Medical decision making narrative: Patient has not operative fractures that require weight-bearing as tolerated however she was unable to stand despite medications here in the emergency department. She is very little mobility of her right hip secondary to pain even while lying in bed. Discussed the case with Dr. Puckett who was the patient's primary doctor also discussed the case with Dr. Mejía on-call for Orthopedic surgery who stated that patient's injury is weight-bearing as tolerated. Discussed the need for admission with the patient. She expressed understanding and agreement. Discharge Plan Departure Patient Disposition: Admitted as Observation Clinical Impression: Closed fracture of inferior pubic ramus, COPD (chronic obstructive pulmonary disease) Admit Date/Time: 08/14/23 06:08
--- NOTE | 2023-08-14 04:43 | DI.CT.S_ITS ---
PROCEDURE: CT PEL WO CON INDICATIONS: hip pain after fall concern for pubic rami fracture TECHNIQUE: Noncontrast 3 mm axial sections acquired through the bony pelvis, with coronal and sagittal reformatting. COMPARISON: [facility], CR, XR HIP W PEL IF DONE RT 2V, 08/14/2023, 3:44. [facility], CT, CT PEL WO CON, 04/06/2023, 20:50. FINDINGS: Image quality: Excellent. Bones: Nondisplaced fractures at the pubic symphysis. Fracture at the right inferior pubic ramus without significant displacement. No suspicious osseous lesion. Bilateral hip arthroplasties. No periprosthetic lucency. Bilateral L5 pars defect. Anterolisthesis of L5 on S1 measuring 1 cm. Multilevel DDD. Soft tissues: Arterial vascular calcifications. No bladder stone. Diverticulosis. IMPRESSION: Minimally displaced right inferior pubic ramus fracture. Nondisplaced fractures of the pubic symphysis. Minor discrepancy with the overnight preliminary interpretation. Right pubic symphysis is also fractured Dictated by: Ramy Navas M.D. on 08/14/2023 at 8:55 Approved by: Ramy Navas M.D. on 08/14/2023 at 9:00
[2023-08-14] MEDS: HYDROCODONE/ACET 5/325 TABLET 1 TAB PO (04:50)
--- NOTE | 2023-08-14 07:05 | P.CONS_ITS ---
History of Present Illness Consult details Date Patient Seen: 08/14/23 Time Patient Seen: 08:01 Chief complaint: GL fall rt hip pain Reason for consult: Pelvis fracture Requesting provider: Dhiraj Tolentino Narrative: 82-year-old female history of bilateral total hip arthroplasties. Ground level fall bathroom while practicing balance exercises. Endorses right hemipelvis pain. Does say she head a. No extremity pain. History of bilateral total hip arthroplasties. The right side was in the spring with Dr. Hough. Also had a left total knee replacement in January of [address] Hough. Typically lives independently and does not use assistive devices. After her previous joint surgeries she had a family member stay with her for a few weeks. 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 She states she has had a couple attempts at pacemaker placement that were unsuccessful. She takes amiodarone. Denies any numbness or tingling. Meds Home Medications and Allergies Home Medications Medication Instructions Recorded Confirmed Type cholecalciferol (vitamin D3) 25 2,000 units PO DAILY ##0 06/19/16 04/10/23 History mcg (1,000 unit) tablet (Vitamin D3) calcium carbonate 600 mg-vitamin 2 tab PO DAILY 06/24/18 04/10/23 History D3 5 mcg (200 unit) tablet (Calcium 600 + D(3)) multivitamin with minerals 1 tab PO DAILY 06/24/18 04/10/23 History carvedilol 6.25 mg tablet 6.25 mg PO BID 10/23/19 04/10/23 History flecainide 100 mg tablet 100 mg PO Q12H 01/25/20 04/10/23 History amlodipine 2.5 mg tablet 2.5 mg PO DAILY 05/25/21 04/10/23 History Disabled [address]ing #1 ea 07/03/22 04/10/23 Rx tiotropium bromide 18 mcg capsule 1 cap inhalation DAILY #90 12/04/22 04/10/23 Rx with inhalation device inhalations ferrous sulfate 325 mg (65 mg 325 mg PO Q OTHER DAY 01/09/23 04/10/23 History iron) tablet acetaminophen 325 mg tablet 650 mg (2 x 325 mg) PO Q6H PRN 04/12/23 Rx Fever/Mild Pain (1-3) #90 tabs aspirin 81 mg capsule 81 mg PO DAILY #90 caps 04/12/23 Rx docusate sodium 100 mg capsule 100 mg PO BID #60 caps 04/12/23 Rx oxycodone 5 mg tablet 5 mg PO Q3HR PRN Pain, Moderate 04/12/23 Rx (4-6) #30 tabs furosemide 40 mg tablet 40 mg PO QAM #90 tabs 04/15/23 Rx atorvastatin 20 mg tablet 10 mg (1/2 x 20 mg) PO BEDTIME #45 08/08/23 Rx tabs Allergies Allergy/AdvReac Type Severity Reaction Status Date / Time No Known Drug Allergies Allergy Verified 04/09/23 13:39 Review of Systems Review of Systems ROS: Yes All systems reviewed with the patient and are negative except as otherwise documented Exam Vital Signs (past 8 hours): - 08/14/23 04:12 Temperature 98.1 F Pulse Rate 79 Respiratory Rate 22 Blood Pressure 153/72 H Pulse Oximetry 97 Oxygen Delivery Method Nasal Cannula Oxygen Flow Rate 2 Oxygen Delivery Method Nasal Cannula Oxygen Flow Rate 2 Narrative Exam Narrative: Alert and oriented female in no acute distress lying in her hospital bed. Normocephalic atraumatic Regular rate Lungs clear to auscultation Tenderness around right hemipelvis limited motor nerve, motion exam due to known fractures. No effusion of the knee. Thigh and calf are soft. Demonstrates 5/5 dorsiflexion and plantar flexion. Sensation grossly intact to light touch in all distributions. Pelvis stable to rock Left lower extremity benign well healed anterior knee incision. No pain with log roll. 5/5 dorsiflexion plantar flexion. Thigh and calf soft. Does have a what she states is chronic soreness of her left shoulder is able to demonstrate equal forward flexion compared to contralateral side. Right-hand dominant. Objective Imaging CT scan pelvis: My impression: Minimally displaced right inferior and superior pubic rami fractures. Bilateral total hip arthroplasties. No obvious periprosthetic fractures. Lumbar degenerative changes partially visualized. [facility] Medical History Easy bruisability History of cardioversion Anticoagulation goal of INR 2.0 to 2.5 Raynauds syndrome (12/14/10) Atrial fibrillation with RVR COPD (chronic obstructive pulmonary disease) Uterine cancer (1994) Ovarian cancer (1994) Osteoporosis (2015) Osteoarthritis Atrial fibrillation (2013) Hypertension Lung cancer (2006) Surgical History Anesthesia History of pneumonectomy (05/23/08) History of oophorectomy (1994) History of hip replacement (01/2013) History of breast augmentation (1992) History of bilateral salpingo-oophorectomy (BSO) Status post hysterectomy (1994) Family History Father Hypertension Prostate cancer Grandfather Stroke Grandmother Diabetes mellitus Mother Diabetes mellitus, type II Hypertension Stroke Grandfather No problems noted. Grandmother No problems noted. Social History marital status: unmarried,single household members: none lives independently: Yes pets and animals: Yes education level: college occupational status: other Tobacco & Substance Use Smoking Status: Former smoker Tobacco: How many years used: 19 second hand exposure: No alcohol intake: current substance use type: does not use Assessment & Plan Assessment and plan (1) Fracture of superior pubic ramus: Qualifiers: Encounter type: initial encounter Fracture type: closed Laterality: right Qualified Code(s): S32.511A - Fracture of superior rim of right pubis, initial encounter for closed fracture Status: Acute (2) Closed fracture of inferior pubic ramus: Qualifiers: Encounter type: initial encounter Laterality: right Qualified Code(s): S32.591A - Other specified fracture of right pubis, initial encounter for closed fracture Status: Acute Plan: Right hemipelvis pain. Minimally displaced superior and inferior pubic rami fractures on CT scan by my read. Bilateral total hip arthroplasties. Weightbear as tolerated with assistive device, walker 4-6 weeks. Recommend aspirin 81 mg b.i.d. x6 weeks. Physical therapy / occupational therapy. Depending on ambulatory status may require halfway placement. Follow up in orthopedic clinic in 10-14 days for repeat radiographs. Her outpatient orthopedist is Dr. Kymberly Hough. No surgery indicated at this time. Consider outpatient osteoporotic workup PCP if no recent DEXA. Indicated for inpatient admission for PTOT, possible placement. Pelvis fracture. Independent interpretation CT scan pelvis. Time Spent With Patient Time with patient: 30 to 49 minutes with 50% spent counseling/coordinating care
[2023-08-14] MEDS: FLECAINIDE 100 MG TABLET PO (10:09)
--- NOTE | 2023-08-14 10:23 | PM.HP.1 ---
History of Present Illness History of Present Illness Date Patient Seen: 08/14/23 Chief complaint: GL fall rt hip pain Narrative: Pt is an 82yo woman with atrial fibrillation, COPD, hx of lung cancer s/p pneumonectomy, hx of recent nonoperative left hip fracture requiring hospitalization 04/09-04/13 with hospitalization complicated by SVT requiring cardioversion for treatment, who presented after ground level fall at home. The pt reports that last night she was doing her balance exercises, standing in tandem, when she lost her balance and fell backwards onto her buttocks onto the ground. She bumped her head on the ground, but does not feel it hit hard. She instantly had severe pain in her right hip. She was able to get to her knees and crawl out of the restroom to her phone, and contacted her neighbors. They came over, and ultimately EMS was contacted. The pt now reports that her pain is minimal if she is stationary, but severe with any movement. She denies any associated chest pain, SOB, palpitations. She denies any focal neurological symptoms or weakness. She feels she simply lost her balance. In the ER, the pt had hip xray and CT completed that showed right inferior pubic rami fracture and fracture of the pubic symphysis. Ortho was consulted. [facility] Medical History (Updated 08/14/23 @ 13:51 by Rosio Puckett MD) Easy bruisability History of cardioversion Raynauds syndrome (12/14/10) Atrial fibrillation with RVR COPD (chronic obstructive pulmonary disease) Uterine cancer (1994) Ovarian cancer (1994) Osteoporosis (2015) Osteoarthritis Atrial fibrillation (2013) Hypertension Lung cancer (2006) Surgical History Anesthesia History of pneumonectomy (05/23/08) History of oophorectomy (1994) History of hip replacement (01/2013) History of breast augmentation (1992) History of bilateral salpingo-oophorectomy (BSO) Status post hysterectomy (1994) Family History Father Hypertension Prostate cancer Grandfather Stroke Grandmother Diabetes mellitus Mother Diabetes mellitus, type II Hypertension Stroke Grandfather No problems noted. Grandmother No problems noted. Social History marital status: unmarried,single household members: none lives independently: Yes pets and animals: Yes education level: college occupational status: other Smoking Status: Former smoker Tobacco: How many years used: 19 second hand exposure: No alcohol intake: current substance use type: does not use Meds Home Medications and Allergies Home Medications Medication Instructions Recorded Confirmed Type calcium carbonate 600 mg-vitamin 2 tab PO DAILY 06/24/18 08/14/23 History D3 5 mcg (200 unit) tablet (Calcium 600 + D(3)) multivitamin with minerals 1 tab PO DAILY 06/24/18 08/14/23 History amlodipine 2.5 mg tablet 2.5 mg PO DAILY 05/25/21 08/14/23 History Disabled Parking #1 ea 07/03/22 08/14/23 Rx tiotropium bromide 18 mcg capsule 1 cap inhalation DAILY #90 12/04/22 08/14/23 Rx with inhalation device inhalations ferrous sulfate 325 mg (65 mg 325 mg PO Q OTHER DAY 01/09/23 08/14/23 History iron) tablet acetaminophen 325 mg tablet 650 mg (2 x 325 mg) PO Q6H PRN 04/12/23 08/14/23 Rx Fever/Mild Pain (1-3) #90 tabs aspirin 81 mg capsule 81 mg PO DAILY #90 caps 04/12/23 08/14/23 Rx furosemide 40 mg tablet 40 mg PO QAM #90 tabs 04/15/23 08/14/23 Rx atorvastatin 20 mg tablet 10 mg (1/2 x 20 mg) PO BEDTIME #45 08/08/23 08/14/23 Rx tabs amiodarone 200 mg tablet 200 mg PO DAILY 08/14/23 08/14/23 History carvedilol 3.125 mg tablet 3.125 mg PO BID 08/14/23 08/14/23 History potassium chloride 20 mEq 20 meq PO DAILY 08/14/23 08/14/23 History tablet,extended release Allergies Allergy/AdvReac Type Severity Reaction Status Date / Time No Known Drug Allergies Allergy Verified 04/09/23 13:39 Exam Vital Signs (past 8 hours): - 08/14/23 03:45 08/14/23 03:46 08/14/23 03:46 Temperature Pulse Rate 76 76 Respiratory Rate Blood Pressure 163/74 H Pulse Oximetry 95 95 Oxygen Delivery Method Oxygen Flow Rate 08/14/23 04:00 08/14/23 04:00 08/14/23 04:12 Temperature 98.1 F Pulse Rate 80 79 Respiratory Rate 22 Blood Pressure 153/72 H 153/72 H Pulse Oximetry 98 97 Oxygen Delivery Method Nasal Cannula Oxygen Flow Rate 2 08/14/23 04:30 08/14/23 04:30 08/14/23 05:00 Temperature Pulse Rate 74 86 Respiratory Rate Blood Pressure 159/76 H Pulse Oximetry 97 Oxygen Delivery Method Oxygen Flow Rate 08/14/23 05:00 08/14/23 05:30 08/14/23 05:31 Temperature Pulse Rate 74 70 Respiratory Rate Blood Pressure 157/72 H Pulse Oximetry 97 97 Oxygen Delivery Method Oxygen Flow Rate 08/14/23 05:31 08/14/23 06:00 08/14/23 06:00 Temperature Pulse Rate 77 Respiratory Rate Blood Pressure 139/69 143/83 H Pulse Oximetry 95 Oxygen Delivery Method Oxygen Flow Rate 08/14/23 06:30 08/14/23 06:30 08/14/23 07:00 Temperature Pulse Rate 67 Respiratory Rate Blood Pressure 126/59 L 122/56 L Pulse Oximetry 98 Oxygen Delivery Method Oxygen Flow Rate 08/14/23 07:00 08/14/23 07:30 08/14/23 07:30 Temperature Pulse Rate 69 66 Respiratory Rate Blood Pressure 115/60 Pulse Oximetry 100 Oxygen Delivery Method Oxygen Flow Rate 08/14/23 08:02 08/14/23 08:40 08/14/23 09:08 Temperature 97.9 F 99.1 F Pulse Rate 71 72 Respiratory Rate 19 16 Blood Pressure 143/61 H Pulse Oximetry 100 92 Oxygen Delivery Method Nasal Cannula Nasal Cannula Oxygen Flow Rate 2 2 Oxygen Delivery Method Nasal Cannula Oxygen Flow Rate 2 Narrative Exam Narrative: Gen: NAD, sitting comfortably in bed, appears well, pleasantly conversant HEENT: normocephalic, atraumatic Neck: no LAD, no JVD CV: irregularly irregular rhythm, grade 2/6 systolic murmur Resp: clear to auscultation, no wheezes or crackles Abd: soft, nontender, nondistended Ext: no edema Neuro: no gross deficits Assessment & Plan Assessment & Plan narrative: Pt is an 82yo woman with atrial fibrillation, COPD, hx of lung cancer s/p pneumonectomy, hx of recent nonoperative left hip fracture requiring hospitalization 04/09-04/13 with hospitalization complicated by SVT requiring cardioversion for treatment, who presented after ground level fall at home. Found to have right sided hip fracture. 1) Hip fracture: - Tylenol, Oxycodone, Dilaudid PRN for pain control - Ortho consulted, appreciate recommendations - Weightbearing as tolerated with walker - Aspirin BID - PT/OT consulted 2) Ground level fall: Mechanical in nature with loss of balance. Very low concern for more serious etiology. - Continue balance exercises as outpatient with PT guidance 3) COPD with acute respiratory failure: Pt with small oxygen requirement of 2L. - CXR - Albuterol PRN - Continue home Tiotropium - Will hold on steroids pending CXR results 4) Atrial fibrillation: Currently rate controlled. Followed closely by Cardiology. - Continue home Carvedilol, Amlodipine, Amiodarone - Continue baby aspirin as above FEN: General diet Code: Full DVT ppx: SCDs Dispo: Pending pain control. PT/OT to eval. Will likely need placement in SNF/Rehab for short time due to living independently at home.
--- NOTE | 2023-08-14 12:58 | CM.DPNOTE ---
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 Puckett that pt will likely benefit from SNF placement due to her pelvic fracture. Per Dr. Puckett, pt lives alone indep at baseline. Per ortho consult note, non operable fracture. Anticipate SNF placement pending PT/OT evals. Weightbear as tolerated with assistive device, walker 4-6 weeks. PT/OT evals pending. Comprehensive DCP assessment planned for tomorrow, 08/14.. Pt admitted to floor Saturday after morning caseload cut off. CM team will follow closely for therapy recs when available. BEKA Coronel
--- NOTE | 2023-08-14 14:18 | DI.RAD.S_ITS ---
PROCEDURE: XR CHEST 1V INDICATIONS: hypoxia TECHNIQUE: One view of the chest was acquired. COMPARISON: [facility], CR, XR CHEST 1V, 04/09/2023, 18:14. FINDINGS: Surgical changes and devices: Right upper thorax surgical clips. Lungs and pleura: Status post right pneumonectomy with redemonstration of rightward midline shift. Hazy opacities at the left lung base. No pleural effusions or pneumothorax. Mediastinum: Mediastinal contours appear normal. Heart size is normal. Bones and chest wall: No suspicious bony lesions. Overlying soft tissues appear unremarkable. IMPRESSION: Patchy opacities at the left lung base, which may represent atelectasis, aspiration or pneumonia in appropriate clinical setting. Approved by: Lisha Leon M.D.,Ph.D. on 08/14/2023 at 15:33
--- NOTE | 2023-08-14 15:10 | PT.IIE ---
Current Diagnoses Fracture of superior rim of right pubis, initial encounter for closed fracture (08/14/23) Other specified fracture of right pubis, initial encounter for closed fracture (08/14/23) Surgical History (Last Reviewed 08/14/23 @ 08:09 by Paulette Mejía MD) Anesthesia History of bilateral salpingo-oophorectomy (BSO) History of breast augmentation (1992) History of hip replacement (01/2013) History of oophorectomy (1994) History of pneumonectomy (05/23/08) Status post hysterectomy (1994) Medical History (Last Updated 08/14/23 @ 13:51 by Rosio Puckett MD) Atrial fibrillation (2013) Atrial fibrillation with RVR COPD (chronic obstructive pulmonary disease) Easy bruisability History of cardioversion Hypertension Lung cancer (2006) Osteoarthritis Osteoporosis (2015) Ovarian cancer (1994) Raynauds syndrome (12/14/10) Uterine cancer (1994) Physical Therapy Inpatient Evaluation/Re-Eval M1 PT/OT-IP Prior Functional Status Start: 08/14/23 16:30 Freq: NEEDED Status: Active Protocol: Document 08/14/23 15:10 AB (Rec: 08/14/23 16:47 AB [id number]) Medical Review Prior Functional Status Medical History Reviewed Yes Communication able to make needs known Mobility and Gait pt stated that she was modified independent with all mobilities and ambulation without AD indoors but uses her hurrycane for outdoor mobility Social History Household Members none Living Arrangements House Number of Floors (Floors) Two Floors Number of Stairs To Enter/Railing? pt stays on main level of the house 2 steps B rails to enter the house Home Environment High Toilet,Walk in Shower Home Equipment Front Wheel Walker,Shower Seat with Backrest,Hand Held Shower,Grab Bars In Shower Employment Status Retired Additional Social History Comment pt has a hurrycane M2 PT-IP Current Condition Start: 08/14/23 16:30 Freq: NEEDED Status: Active Protocol: Document 08/14/23 15:10 AB (Rec: 08/14/23 16:47 AB [id number]) Physical Therapy Current Condition Current Condition Evaluation Date 08/14/23 Treatment Diagnosis GLF; B pubic symphysis fx; R inf pubic ramus fx; difficulty in walking Onset Date 08/14/23 M3 PT-IP Subjective Start: 08/14/23 16:30 Freq: NEEDED Status: Active Protocol: Document 08/14/23 15:10 AB (Rec: 08/14/23 16:47 AB [id number]) Subjective Physical Therapy Visit Type Type Initial Evaluation Visit Start Time 15:10 Visit Stop Time 15:55 Number of FEEDER SWITCHBOARD 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 Visits 0 Physical Therapy Visit Comments Patient Comments agreeable to do PT Therapy Pain Assessment Pain When Pain Assessed During Mobility Pain Present Pain Present Pain Reported Location Right Hip Scale Used pain scale not stated Pain Behaviors Facial Grimacing,Guarding, Wincing Pain Management Techniques Distraction,Modification of Treatment,Re-positioning, Timing of Activity with Medications M4 PT-IP Mobility and Gait Start: 08/14/23 16:30 Freq: NEEDED Status: Active Protocol: Document 08/14/23 15:10 AB (Rec: 08/14/23 16:47 AB [id number]) PT-Bed Mobility Assessment Supine to Sit Supine to Sit Maximum Assistance PT-Transfer Assessment Sit to and From Stand Sit to and from Stand Moderate Assistance,1 Person Assistance,Use of Upper Extremities Equipment Transfer Assistive Device Gait Belt,Front Wheeled Walker Orthotic/Prosthetic Devices or Brace: No Transfers Transfer Destination Chair Transfer Technique ambulated Transfer Ability Level of Assist Moderate Assistance,Maximum Assistance,1 Person Assistance ,Use of Upper Extremities Comments Mobility Comments pt supine in bed and agreeable to do PT. obtained PLOF and home set up from pt. BP in supine: 163/76 O2 sat with 1/2 L supplemental O2 : 93% FL: 83-86 bpm. pt completed supine to sit max A and max cues. pt presents with difficulty completing the task with c/o increase pain R >L hip during movement with increase LE and trunk guarding . pt needing increase time to complete. pt able to sit on EOB with initial min A for sitting balance but able to sit SBA after repositioning. (+) SOB and O2 sat checked: 87 -88%. supplemental O2 increased to 2L/min per nurse. o2 sat increased to 94-96%. pt with c/o initial lightheadedness but dissipated after a few minutes of sitting. BP: 143/71. pt completed sit to stand mod A with initial body shaking with c/o R hip pain but able to control after a few seconds of standing. pt was able to take a few steps towards the chair using FWW ~ 2 ft mod to max A and max cues. presents with antalgic gait. positioned pt on the chair. call light and table placed within reach. Left pt with OT . Gait Assessment Gait Gait Assistance Required: Moderate Assistance,Maximum Assistance Distance (Feet) 2 Able to Maintain Weight Bearing Status Yes During Gait Assistive Devices Assistive Device Gait Belt,Front Wheeled Walker Orthotic/Prosthetic Devices or Brace: No Gait Deviations General Gait Pattern Antalgic,Decreased Stride Length,Decreased Feet Clearance,Step-to Gait Factors Limiting Gait Function Factors Limiting Gait Function Decreased Activity Tolerance, Decreased Strength,Difficulty Following Directions,Limited Range of Motion,Pain,Poor Balance,Poor Safety Awareness, Respiratory Distress PT-Balance Assessment Sitting Balance and Reactions Static Sitting Balance Ability Good Dynamic Sitting Balance Ability Fair Standing Balance and Reactions Static Standing Balance Ability Fair Dynamic Standing Balance Ability Poor Device Used FWW M5 PT-IP Objective Assessments Start: 08/14/23 16:30 Freq: NEEDED Status: Active Protocol: Document 08/14/23 15:10 AB (Rec: 08/14/23 16:47 AB [id number]) Orientation Orientation/Cognition Level of Alertness Alert Orientation Name,Place,Situation Language Function Ability Hard of Hearing Safety Awareness Decreased Safety Awareness Memory Description No Deficits Noted Gross Range of Motion Lower Extremity ROM Assessment Within Functional Limits Impairments (+) R knee crepitus and L shoulder crepitus Strength Lower Extremity Strength Hip 3+/5 Knee 4-/5 Muscle Tone Muscle Tone WNL Yes M6 PT-IP Treatment Start: 08/14/23 16:30 Freq: NEEDED Status: Active Protocol: Document 08/14/23 15:10 AB (Rec: 08/14/23 16:47 AB [id number]) Physical Therapy Treatment Education Education Provided Weight Bearing Status,Safety M7 PT-IP Assessment and Plan Start: 08/14/23 16:30 Freq: NEEDED Status: Active Protocol: Document 08/14/23 15:10 AB (Rec: 08/14/23 16:47 AB [id number]) PT Summary Assessment and Plan Potential Rehabilitation Potential Fair Status of Condition at Evaluation Evolving Summary Impairments Pain,ROM,Strength,Balance, Coordination,Sensation,Tone, Cognition,Bed Mobility, Transfers,Gait,Activity Tolerance Assessment Summary Pt is an 82 y/o F who had a fall at home and sustained a bilateral pubic symphysis fx and R inferiro pubic rami fracture. Non operative management per ortho MD and pt is WBAT. pt requiring mod to max A with mobility using FWW and unable to tolerate much activity due to c/o pain. pt will require 24/7 assist at this time and will benefit from SNF rehab. will continue to assess progress. Goals Bed Mobility Goal Standby Assistance Transfer Goal Standby Assistance,Front Wheeled Walker Gait Goal Standby Assistance,Front Wheel Walker Gait Distance 50 Other Goals improve bed mobility, transfers, ambulation using LRAD ~ 150 ft mod I up/down 2 steps B rails SBA Days to Meet Goals 10 Frequency of Treatment Frequency Of Treatment Once a Day Treatment Plan Physical Therapy Treatment Plan Bed Mobility Training,Transfer Training,Gait Training, Therapeutic Exercise,Balance Retraining,Discharge Planning, Hot or Cold Pack,Neuromuscular Re-ed,Coordination Retraining Precautions Other Precautions falls Weight Bearing Status Weight Bearing Status Weight Bear as Tolerated Allowed Weight Bearing Amount (enter % BLE WBAT or #) (%) Recommendations To Nursing Amount of Assist Needed 1 Person Assist Discharge Recommendations PT Discharge Recommendations SNF Rehab Transportation Needs at Discharge Wheelchair/Cabulance
[2023-08-14] MEDS: ACETAMINOPHEN 325 MG TABLET 650 MG PO (15:17)
[2023-08-14] MEDS: OXYCODONE IR 5 MG TABLET PO (15:17)
--- NOTE | 2023-08-14 16:14 | OT.IP.EVAL ---
Current Diagnoses Fracture of superior rim of right pubis, initial encounter for closed fracture (08/14/23) Other specified fracture of right pubis, initial encounter for closed fracture (08/14/23) Past Medical History (Last Updated 08/14/23 @ 13:51 by Rosio Puckett MD) Atrial fibrillation (2013) Atrial fibrillation with RVR COPD (chronic obstructive pulmonary disease) Easy bruisability History of cardioversion Hypertension Lung cancer (2006) Osteoarthritis Osteoporosis (2015) Ovarian cancer (1994) Raynauds syndrome (12/14/10) Uterine cancer (1994) Surgical History (Last Reviewed 08/14/23 @ 08:09 by Paulette Mejía MD) Anesthesia History of bilateral salpingo-oophorectomy (BSO) History of breast augmentation (1992) History of hip replacement (01/2013) History of oophorectomy (1994) History of pneumonectomy (05/23/08) Status post hysterectomy (1994) Occupational Therapy Inpatient Evaluation/Re-Eval M1 PT/OT-IP Prior Functional Status Start: 08/14/23 16:30 Freq: NEEDED Status: Active Protocol: Document 08/14/23 15:25 [facility] (Rec: 08/14/23 17:16 [facility] [id number]) Medical Review Prior Functional Status Medical History Reviewed Yes Communication able to make needs known Mobility and Gait pt stated that she was modified independent with all mobilities and ambulation without AD indoors but uses her hurrycane for outdoor mobility Activities of Daily Living and IADL's Pt states able to do her ADl needs with adaptive equipment, IADL, and drives. Social History Household Members none Living Arrangements House Number of Floors (Floors) Two Floors Number of Stairs To Enter/Railing? pt stays on main level of the house 2 steps B rails to enter the house Home Environment High Toilet,Walk in Shower Home Equipment Front Wheel Walker,Shower Seat with Backrest,Hand Held Shower,Long Handled Sponge, Long Handled Shoe Horn,Air Quality Instrument Specialist ,Sock Aid,Grab Bars In Shower Employment Status Retired Additional Social History Comment pt has a hurrycane M2 OT-IP Current Condition Start: 08/14/23 16:54 Freq: Status: Active Protocol: Document 08/14/23 15:25 [facility] (Rec: 08/14/23 17:16 [facility] [id number]) Occupational Therapy Current Condition Current Condition Evaluation Date 08/14/23 Treatment Diagnosis GLF Bilateral Pubic Symphysis fx, R inf Pubic Ramus fx Diagnosis Onset Date 08/14/23 Weight Bearing Status Weight Bearing Status Weight Bear as Tolerated M3 OT- IP Subjective and Pain Start: 08/14/23 16:54 Freq: Status: Active Protocol: Document 08/14/23 15:25 [facility] (Rec: 08/14/23 17:16 [facility] [id number]) OT- Subjective Occupational Therapy Visit Type Type Initial Evaluation Visit Start Time 15:25 Visit Stop Time 16:14 Occupational Therapy Visit Comments Patient Comments Pt agreed to get up and wanting to use the BSC. Patient/Caregiver Goals To get better and open to going to skilled rehab. OT Pain Assessment Pain When Pain Assessed At Rest Pain Present Pain Present Pain Reported Location Right Hip Intensity 4 Scale Used Numeric (0 - 10) M4 OT- IP ADL's Start: 08/14/23 16:54 Freq: Status: Active Protocol: Document 08/14/23 15:25 [facility] (Rec: 08/14/23 17:16 [facility] [id number]) OT [id number] Comments OT Self-Feeding Comments Not at meal time. OT ADL-Grooming Comments OT Grooming Comments Not performed. OT ADL-Oral Care Comments Oral Care Comments Not performed. OT ADL-Dressing General Eval Lower Body Dressing Ability Maximum Assistance Comments OT Dressing Comments Pt needing MAX A for brief management needs. Initially tired to use the coloring room man but in too much pain and needing assist. OT ADL-Toileting General Evaluation Toileting Ability Maximum Assistance Areas Needing Assistance Manage Clothing,Perform Perineal Hygiene Comments OT Toileting Comments Pt needing assist for all brief management needs. Pt able to wipe while seated. OT ADL-Bathing Comments OT Bathing Comments Not performed. Pt will benefit from assist at this time. M5 OT- IP IADL's Start: 08/14/23 16:54 Freq: Status: Active Protocol: Document 08/14/23 15:25 [facility] (Rec: 08/14/23 17:16 [facility] [id number]) OT-Instrumental Activities of Daily Living Deficits IADL Deficits Identified Deficits Home Safety Awareness Awareness of Need for Assistance at Home Good Awareness Ability to Problem Solve Emergency Able to Problem Solve Situations Medication Management Medication Management Comments Pt does her own at home. Money Management Money Management Comments Pt does her own needs at home. Meal Preparation Meal Preparation Comments Pt will need assist. Manager Behavior Manager Behavior Comments Pt will need assist. Driving Driving Comments Pt will need assist. M6 OT- IP Functional Cognition Start: 08/14/23 16:54 Freq: Status: Active Protocol: Document 08/14/23 15:25 [facility] (Rec: 08/14/23 17:16 [facility] [id number]) Cognitive Factors Limiting Selfcare Function Cognitive Ability Level of Alertness Alert Patient Orientation Name,Age,Birthday,Month,Date, Year,Day of Week,Place, Situation Attention Span Ability Capable of Focused Attention, Capable of Sustained Attention Ability to Follow Commands Able to Follow One Step Commands Cognitive Comments Cognitive Assessment Comments Pt able to follow commands for ADl and mobility needs. Pt has not called her family to know of her fall. On pt's last fall 04/09/23, pt had left femur periprosthetic fx and was TTWB and ended up going home with her step daughter to help care for her. Pt has not called her family to let them know that she has fallen again. OT- Vision and Hearing OT- Vision Assessment Visual Acuity Glasses For Reading Vision Assessment Comments To further assess. M7 OT- IP Mobility and Balance Start: 08/14/23 16:54 Freq: Status: Active Protocol: Document 08/14/23 15:25 [facility] (Rec: 08/14/23 17:16 [facility] [id number]) OT- Bed Mobility Assessment Supine to Sit Supine to Sit Assist Maximum Assistance,1 Person Assistance Scooting Scooting to Edge of Bed Maximum Assistance,1 Person Assistance OT-Transfer Assessment Sit to and From Stand Sit to and from Stand Moderate Assistance,Maximum Assistance,1 Person Assistance Transfers Transfer Ability Moderate Assistance,Maximum Assistance,1 Person Assistance Technique Transfer Destination Bed,Bedside Commode,Chair Devices Transfer Assistive Devices Gait Belt,Front Wheeled Walker Comments Mobility Comments Pt MAX A to help get to the edge of the bed and get her trunk upright. MAX AX 1 to stand and assist to transfer with FWW, once up on her feet able to improve to MODA X1 with FWW. Pt having to use the BSC and improved to MODA X 1 with FWW and increased time. OT- Balance Assessment Sitting Balance and Reactions Static Sitting Balance Ability Good Dynamic Sitting Balance Ability Fair Standing Balance and Reactions Static Standing Balance Ability Fair Dynamic Standing Balance Ability Poor M8 OT- IP Objective Assessments Start: 08/14/23 16:54 Freq: Status: Active Protocol: Document 08/14/23 15:25 [facility] (Rec: 08/14/23 17:16 [facility] [id number]) OT Gross Range of Motion Upper Extremity Range of Motion Assessment Left Impaired OT Strength Upper Extremity Strength Assessment Left Impaired Comments Strength Comments Left shoulder crepitus and 3-/ 5 to 4-/5 from proximal to distal. M9 OT- IP Assessment and Plan Start: 08/14/23 16:54 Freq: Status: Active Protocol: Document 08/14/23 15:25 [facility] (Rec: 08/14/23 17:16 [facility] [id number]) OT Summary Assessment and Plan Potential Rehabilitation Potential Good Analytic Complexity at Evaluation Moderate Summary OT Impairments Pain,Range of Motion,Strength, Balance,Functional Mobility, Grooming,Dressing,Toileting, Bathing,Toilet Transfers, Shower Transfers,Activity Tolerance Progress Towards Goals Progressing Toward Goals,Slow Progress due to Pain Assessment Summary Pt MOD complexity and here due to fall resulting in bilateral pubic sympysis fx and right inferior pubic fracture. Pt main barriers are pain, steps, and will now benefit from assist for ADL and mobility needs. Pt is open to skilled rehab. However on pt's fall on 04/09/23 which she was TTWB to LLE, pt ended up going to her step daughter 's house to stay. Pt's step daughter just recently retired from being a physical therapist. Pending if her step daughter is agreeable to assist the pt again either skilled rehab versus home with 24/7 assist. Goals Self-Feeding Goal Independent Grooming Goal Independent Dressing Goal Independent,Long Handled Shoe Horn,Air Quality Instrument Specialist,Sock Aid Toileting Goal Independent Bathing Goal Independent Toilet Transfer Goal Independent Shower Transfer Goal Independent Days to Meet Goals 25 Frequency of Treatment Frequency Of Treatment Once a Day Treatment Plan OT Treatment Plan ADL Training,Functional Mobility,Patient/Family Education,Discharge Planning Discharge Recommendations OT Discharge Recommendations Home with 24/7 Assist Available,Home Health,Home vs SNF Transportation Needs at Discharge Private Vehicle,Wheelchair/ Cabulance
[2023-08-14] MEDS: IPRATROPIUM 0.5 MG/2.5 ML NEB INH ×2 (16:28→20:26)
[2023-08-14 20:21] LABS: Add Manual Diff / Slide Review NO; Basophils Absolute Auto 0 /uL (0-100); Basophils Percent Auto 0.4 % (0-2); Eosinophils Absolute Auto 100 /uL (0-450); Eosinophils Percent Auto 1.3 % (2-4); Hematocrit 32.5 % (36-46); Hemoglobin 10.7 g/dL (12.0-16.0); Lymphocytes Absolute Auto 1000 /uL (1100-4500); Lymphocytes Percent Auto 9.5 % (25-40); Mean Corpuscular Hemoglobin 29.9 PG (26-34); Mean Corpuscular Volume 90.7 fL (80-100); Monocytes Absolute Auto 1200 /uL (0-900); Monocytes Percent Auto 10.9 % (3-14); Neutrophils Absolute Auto 8300 /uL (1500-7000); Neutrophils Percent Auto 77.9 % (50-75); Platelet Count 206 X10^3/uL (150-400); Red Blood Cell Count 3.59 X10^6/uL (4.0-5.2); Red Cell Distribution Width 14.5 % (11.6-14.8); White Blood Cell Count 10.6 X10^3/uL (4.5-11.0)
[2023-08-14] MEDS: ASPIRIN EC 81 MG TABLET PO (20:45)
[2023-08-14] MEDS: ATORVASTATIN 20 MG TABLET 10 MG PO (20:45)
[2023-08-14] MEDS: DOCUSATE 100 MG CAPSULE PO (20:46)
[2023-08-14] MEDS: SODIUM CHLORIDE 0.9% FLUSH 10 ML IV (21:48)
[2023-08-15] VITALS (11 sets, daily range): BP systolic 89–145; BP diastolic 39–59; PULSE 54–78; RESP 14–20; TEMP 36.7–37.6; O2SAT 88–98
[2023-08-15] MEDS: OXYCODONE IR 5 MG TABLET PO ×3 (06:27→21:00)
[2023-08-15] MEDS: ACETAMINOPHEN 325 MG TABLET 650 MG PO ×2 (06:28→14:26)
[2023-08-15] MEDS: IPRATROPIUM 0.5 MG/2.5 ML NEB INH ×2 (07:37→18:37)
[2023-08-15 08:07] LABS: Add Manual Diff / Slide Review NO; Basophils Absolute Auto 0 /uL (0-100); Basophils Percent Auto 0.3 % (0-2); Eosinophils Absolute Auto 200 /uL (0-450); Eosinophils Percent Auto 1.6 % (2-4); Hematocrit 32.4 % (36-46); Hemoglobin 10.7 g/dL (12.0-16.0); Lymphocytes Absolute Auto 1300 /uL (1100-4500); Lymphocytes Percent Auto 11.7 % (25-40); Mean Corpuscular HGB Conc 33.1 % (30-36); Mean Corpuscular Hemoglobin 30.1 PG (26-34); Monocytes Absolute Auto 900 /uL (0-900); Monocytes Percent Auto 8.8 % (3-14); Neutrophils Absolute Auto 8400 /uL (1500-7000); Neutrophils Percent Auto 77.6 % (50-75); Platelet Count 216 X10^3/uL (150-400); Red Blood Cell Count 3.56 X10^6/uL (4.0-5.2); Red Cell Distribution Width 14.6 % (11.6-14.8); White Blood Cell Count 10.8 X10^3/uL (4.5-11.0)
[2023-08-15] MEDS: FUROSEMIDE 40 MG TABLET PO (08:13)
[2023-08-15] MEDS: DOCUSATE 100 MG CAPSULE PO ×2 (08:13→21:01)
[2023-08-15] MEDS: CHOLECALCIFEROL (VITAMIN D3) 1,000 UNIT TABLET 2000 UNIT PO (08:13)
[2023-08-15] MEDS: AMLODIPINE 5 MG TABLET 2.5 MG PO (08:13)
[2023-08-15] MEDS: AMIODARONE 200 MG TABLET PO (08:13)
[2023-08-15] MEDS: carvediloL 3.125 MG TABLET 6.25 MG PO ×2 (08:13→21:13)
[2023-08-15] MEDS: ASPIRIN EC 81 MG TABLET PO ×2 (08:13→21:01)
[2023-08-15] MEDS: SODIUM CHLORIDE 0.9% FLUSH 10 ML IV ×2 (08:14→21:02)
[2023-08-15] MEDS: FERROUS SULFATE 325 MG TABLET PO (08:15)
[2023-08-15] MEDS: CALCIUM CARBONATE 500 MG TAB 1000 MG PO (08:15)
[2023-08-15 08:30] LABS: Alanine Aminotransferase 19 IU/L (<35); Albumin 3.6 g/dL (3.5-5.0); Albumin Globulin Ratio 1.4 (1.0-2.8); Alkaline Phosphatase 64 U/L (38-126); Aspartate Aminotransferase 26 IU/L (14-36); BUN Creatinine Ratio 28.2 (6-22); Bilirubin Total 1.1 mg/dL (0.2-1.3); Blood Urea Nitrogen 24 mg/dL (7-17); Calcium 8.7 mg/dL (8.4-10.2); Carbon Dioxide 34 mmol/L (22-32); Chloride 99 mmol/L (98-107); Estimated Glomerular Filt Rate > 60 mL/min (>60); Globulin 2.6 g/dL (1.7-4.1); Glucose 104 mg/dL (80-110); HEMOLYSIS < 15 (0-50); Potassium 4.5 mmol/L (3.4-5.1); Sodium 134 mmol/L (137-145); Total Protein 6.2 g/dL (6.3-8.2)
--- NOTE | 2023-08-15 15:15 | PT.IPTN ---
Current Diagnoses Fracture of superior rim of right pubis, initial encounter for closed fracture (08/14/23) Other specified fracture of right pubis, initial encounter for closed fracture (08/14/23) Physical Therapy Treatment Note M2 PT-IP Current Condition Start: 08/14/23 16:30 Freq: NEEDED Status: Active Protocol: Document 08/14/23 15:10 AB (Rec: 08/14/23 16:47 AB [id number]) Physical Therapy Current Condition Current Condition Evaluation Date 08/14/23 Treatment Diagnosis GLF; B pubic symphysis fx; R inf pubic ramus fx; difficulty in walking Onset Date 08/14/23 M3 PT-IP Subjective Start: 08/14/23 16:30 Freq: NEEDED Status: Active Protocol: Document 08/15/23 15:54 TS (Rec: 08/15/23 16:09 TS [id number]) Subjective Physical Therapy Visit Type Type Treatment Note Visit Start Time 15:15 Visit Stop Time 15:38 Number of ENGINEERING PATTERNMAKER Visits 1 Physical Therapy Visit Comments Patient Comments Pt found resting in chair, is agreeable to PT. Therapy Pain Assessment Pain When Pain Assessed During Mobility Pain Present Pain Present Pain Reported M4 PT-IP Mobility and Gait Start: 08/14/23 16:30 Freq: NEEDED Status: Active Protocol: Document 08/15/23 15:54 TS (Rec: 08/15/23 16:09 TS [id number]) PT-Transfer Assessment Sit to and From Stand Sit to and from Stand Minimal Assistance,1 Person Assistance Equipment Transfer Assistive Device Gait Belt,Front Wheeled Walker Orthotic/Prosthetic Devices or Brace: No Comments Mobility Comments Pt performed ankle pumps, heel slides and quad sets in chair . STS from chair with FWW Nikia with cues for pushing from arms of chair. Pt ambulated ~ 30' in room with slow step to gait and use of FWW. Pt is unsteady with gait, has decreased step length and height. Pt was left back in chair, all needs met. Gait Assessment Gait Gait Assistance Required: Contact Guard Assist Distance (Feet) 30 Able to Maintain Weight Bearing Status Yes During Gait Assistive Devices Assistive Device Gait Belt,Front Wheeled Walker Orthotic/Prosthetic Devices or Brace: No Gait Deviations General Gait Pattern Antalgic,Decreased Stride Length,Decreased Feet Clearance,Step-to Gait Factors Limiting Gait Function Factors Limiting Gait Function Decreased Activity Tolerance, Decreased Strength,Difficulty Following Directions,Limited Range of Motion,Pain,Poor Balance,Poor Safety Awareness, Respiratory Distress Comments Gait Comments See mobility comments PT-Balance Assessment Sitting Balance and Reactions Static Sitting Balance Ability Good Dynamic Sitting Balance Ability Fair Standing Balance and Reactions Static Standing Balance Ability Fair Dynamic Standing Balance Ability Poor Device Used FWW M5 PT-IP Objective Assessments Start: 08/14/23 16:30 Freq: NEEDED Status: Active Protocol: Document 08/14/23 15:10 AB (Rec: 08/14/23 16:47 AB [id number]) Orientation Orientation/Cognition Level of Alertness Alert Orientation Name,Place,Situation Language Function Ability Hard of Hearing Safety Awareness Decreased Safety Awareness Memory Description No Deficits Noted Gross Range of Motion Lower Extremity ROM Assessment Within Functional Limits Impairments (+) R knee crepitus and L shoulder crepitus Strength Lower Extremity Strength Hip 3+/5 Knee 4-/5 Muscle Tone Muscle Tone WNL Yes M6 PT-IP Treatment Start: 08/14/23 16:30 Freq: NEEDED Status: Active Protocol: Document 08/15/23 15:54 TS (Rec: 08/15/23 16:09 TS [id number]) Physical Therapy Treatment Education Education Provided Weight Bearing Status,Safety M7 PT-IP Assessment and Plan Start: 08/14/23 16:30 Freq: NEEDED Status: Active Protocol: Document 08/15/23 15:54 TS (Rec: 08/15/23 16:09 TS [id number]) PT Summary Assessment and Plan Potential Rehabilitation Potential Fair Summary Impairments Pain,ROM,Strength,Balance, Coordination,Sensation,Tone, Cognition,Bed Mobility, Transfers,Gait,Activity Tolerance Progress Towards Goals Progressing Toward Goals Assessment Summary Pat is progressing with her mobility. She required decreased assist for STS to Nikia with FWW. She progressed her gait to ~30'CGA with FWW. She is unsteady with gait. Her activity tolerance is improving, Spo2 remained stable throughout session on 2L's in mid 90's. PT is recommending SNF rehab. Goals Bed Mobility Goal Standby Assistance Transfer Goal Standby Assistance,Front Wheeled Walker Gait Goal Standby Assistance,Front Wheel Walker Gait Distance 50 Other Goals improve bed mobility, transfers, ambulation using LRAD ~ 150 ft mod I up/down 2 steps B rails SBA Days to Meet Goals 10 Frequency of Treatment Frequency Of Treatment Once a Day Treatment Plan Physical Therapy Treatment Plan Bed Mobility Training,Transfer Training,Gait Training, Therapeutic Exercise,Balance Retraining,Discharge Planning, Hot or Cold Pack,Neuromuscular Re-ed,Coordination Retraining Precautions Other Precautions falls Weight Bearing Status Weight Bearing Status Weight Bear as Tolerated Allowed Weight Bearing Amount (enter % BLE WBAT or #) (%) Recommendations To Nursing Amount of Assist Needed 1 Person Assist Discharge Recommendations PT Discharge Recommendations SNF Rehab Transportation Needs at Discharge Wheelchair/Cabulance
--- NOTE | 2023-08-15 16:05 | OT.IP.TRT ---
Current Diagnoses Fracture of superior rim of right pubis, initial encounter for closed fracture (08/14/23) Other specified fracture of right pubis, initial encounter for closed fracture (08/14/23) Occupational Therapy Treatment Note M2 OT-IP Current Condition Start: 08/14/23 16:54 Freq: Status: Active Protocol: Document 08/14/23 15:25 [facility] (Rec: 08/14/23 17:16 [facility] [id number]) Occupational Therapy Current Condition Current Condition Evaluation Date 08/14/23 Treatment Diagnosis GLF Bilateral Pubic Symphysis fx, R inf Pubic Ramus fx Diagnosis Onset Date 08/14/23 Weight Bearing Status Weight Bearing Status Weight Bear as Tolerated M3 OT- IP Subjective and Pain Start: 08/14/23 16:54 Freq: Status: Active Protocol: Document 08/15/23 16:51 [facility] (Rec: 08/15/23 17:01 [facility] [id number]) OT- Subjective Occupational Therapy Visit Type Type Treatment Note Visit Start Time 15:38 Visit Stop Time 16:05 Occupational Therapy Visit Comments Patient Comments Pt tired from just working with PT. Pt on 2L O2 and at 98%. Patient/Caregiver Goals To go to skilled rehab. OT Pain Assessment Pain When Pain Assessed At Rest Pain Present Pain Present Pain Reported M5 OT- IP IADL's Start: 08/14/23 16:54 Freq: Status: Active Protocol: Document 08/14/23 15:25 [facility] (Rec: 08/14/23 17:16 [facility] [id number]) OT-Instrumental Activities of Daily Living Deficits IADL Deficits Identified Deficits Home Safety Awareness Awareness of Need for Assistance at Home Good Awareness Ability to Problem Solve Emergency Able to Problem Solve Situations Medication Management Medication Management Comments Pt does her own at home. Money Management Money Management Comments Pt does her own needs at home. Meal Preparation Meal Preparation Comments Pt will need assist. Chairman Chairman Comments Pt will need assist. Driving Driving Comments Pt will need assist. M6 OT- IP Functional Cognition Start: 08/14/23 16:54 Freq: Status: Active Protocol: Document 08/15/23 16:51 [facility] (Rec: 08/15/23 17:01 [facility] [id number]) Cognitive Factors Limiting Selfcare Function Cognitive Ability Level of Alertness Alert Patient Orientation Name,Age,Birthday,Month,Date, Year,Day of Week,Place, Situation Attention Span Ability Capable of Focused Attention, Capable of Sustained Attention Ability to Follow Commands Able to Follow One Step Commands Cognitive Comments Cognitive Assessment Comments Pt states has spoken to her step daughter and decided best to go to skilled rehab at this time to recover. Spoke of safety options for her bathroom. Pt states only has one grab bar and no bar to help get into her shower. Suggested pt get a transfer pole or/and use of tub bench to increase safety for showering needs. Pt is very independent,is very prideful and does not like to use adaptive equipment or devices. Explained to the pt that devices/equipment can help to keep her independent to be able to stay at home longer. Pt also states now has difficulty to get into and out of her [facility] SUV. M7 OT- IP Mobility and Balance Start: 08/14/23 16:54 Freq: Status: Active Protocol: Document 08/15/23 16:51 [facility] (Rec: 08/15/23 17:01 [facility] [id number]) OT-Transfer Assessment Comments Mobility Comments O2 on 2L at rest 98% and trial on 1L decreased to 95% and trial on RA at 91%. O2 replaced on 2L and at 96%. Pt 's Bp running low at 90/43 and 89/39. Able to request from nursing a spirometer to work on her breathing and activity tolerance. OT- Balance Assessment Sitting Balance and Reactions Static Sitting Balance Ability Good Dynamic Sitting Balance Ability Fair M8 OT- IP Objective Assessments Start: 08/14/23 16:54 Freq: Status: Active Protocol: Document 08/14/23 15:25 [facility] (Rec: 08/14/23 17:16 [facility] [id number]) OT Gross Range of Motion Upper Extremity Range of Motion Assessment Left Impaired OT Strength Upper Extremity Strength Assessment Left Impaired Comments Strength Comments Left shoulder crepitus and 3-/ 5 to 4-/5 from proximal to distal. M9 OT- IP Assessment and Plan Start: 08/14/23 16:54 Freq: Status: Active Protocol: Document 08/15/23 16:51 [facility] (Rec: 08/15/23 17:01 [facility] [id number]) OT Summary Assessment and Plan Potential Rehabilitation Potential Good Analytic Complexity at Evaluation Moderate Summary OT Impairments Pain,Range of Motion,Strength, Balance,Functional Mobility, Grooming,Dressing,Toileting, Bathing,Toilet Transfers, Shower Transfers,Activity Tolerance Progress Towards Goals Progressing Toward Goals,Slow Progress due to Pain,Slow Progress due to Medical Issues ,Slow Progress due to Activity Tolerance Assessment Summary Pt feeling weak and too tired to get up as just able to get up with GLASS INSTALLER earlier. Able to talk at length regarding equipment needs at home, possibly use of transfer pole next to her shower and use of equipment to help with her independence with needs. Encouraged pt to understand that equipment/devices can assist pt to be more independent and safe. Pt to go to skilled rehab when medically stable. Pt states would like to shower tomorrow. Goals Self-Feeding Goal Independent Grooming Goal Independent Dressing Goal Independent,Long Handled Shoe Horn,Emergency Medcl Emt,Sock Aid Toileting Goal Independent Bathing Goal Independent Toilet Transfer Goal Independent Shower Transfer Goal Independent Days to Meet Goals 24 Frequency of Treatment Frequency Of Treatment Once a Day Treatment Plan OT Treatment Plan ADL Training,Functional Mobility,Patient/Family Education,Discharge Planning Discharge Recommendations OT Discharge Recommendations SNF Rehab Transportation Needs at Discharge Wheelchair/Cabulance
--- NOTE | 2023-08-15 16:06 | CM.DANOTE ---
Initial DCP Assessment Note Pt is a 83 yo female, resident of [place], arrives after loosing her balance at home with GLF and subsequent pelvic fx, non-operable. Therapies recommending SNF upon discharge and patient requesting referral to [facility] PCP: Rosio Puckett Payer: TERENCE/Stephon Reviewed chart, pt discussed in multidisciplinary rounds this morning. Patient has met criteria for INPT according to KELVIN Lynn RN. Met w/patient and her friend/neighbor who she gives permission to include in this coordination. Patient reports she has been active and indp, drives, no home O2. Patient has hx of injury and her step daughter (a PT) had taken her home to recover at that time. Patient currently wanting SNF and requests [facility]. Discussed referral with Carine at [facility] who is reviewing for likely admission Saturday08.17.23 when patient can use her [facility] SNF benefit. Need PASRR- Likely to be level I. Plan: Discharge likely to be Saturday08.17.23 if [facility] accepts and patient is medically stable. CM team will plan to follow closely for coordination. BEKA Vila Discharge Planning/Care Management CM Discharge Assessment Start: 08/15/23 16:04 Freq: Status: Active Protocol: Document 08/15/23 16:04 [facility] (Rec: 08/15/23 16:06 [facility] [id number]) Discharge Planning Assessment Assigned Straddle Carrier Operator BEKA Riley DPOA/Assigned Designee Name brother Xiao Contact Information [phone] or [phone] ( [place]) Advance Directives? Yes: poa Advance Directives on File Yes History Provided By Patient,Medical Record Prior Living Arrangements House Household Members none Type of transporation used prior to Drives own vehicle admit Independent with ADL's Yes Is patient alert and oriented? Yes Patient/Family Preference Residential Facility Barriers to Discharge No Comment [facility] reviewing for admission Saturday08.17.23 Discharge Plan Residential Facility Transportation Arrangement Cabulance Referrals Initiated Residential Additional Comment Referral discussed with [facility] per patient's request SNF/HH Preference [facility] in [place] Has Agency SNF been contacted Yes
--- NOTE | 2023-08-15 18:01 | PM.PN.1 ---
Subjective Subjective Date Patient Seen: 08/15/23 Interval history: Ms. Toledo is resting comfortably in bedside chair conversing with a friend. She reports her pain is well controlled overall without any significant discomfort. Was able to participate in physical therapy earlier today walking from 1 side of her room to the door and back to her chair. She does continue to require small amount of supplementary oxygen which is not typical for her at home. Hoping to get a bed at [facility]. Exam Vital Signs (past 8 hours): - 08/15/23 12:00 08/15/23 16:00 08/15/23 17:45 Temperature 98.0 F 98.5 F Pulse Rate 67 54 L Respiratory Rate 15 15 Blood Pressure 105/48 L 89/39 L 90/51 L Pulse Oximetry 94 97 Oxygen Flow Rate 0 0 Fraction of Inspired Oxygen 28 SaO2/FiO2 Ratio 328 Oxygen Delivery Method Nasal Cannula Oxygen Flow Rate 0 Narrative Exam Narrative: General: Pleasant, NAD HEENT: NC/AT, EOMI, moist membranes CV: Irregularly irregular rhythm, normal S1-S2, 2/6 systolic murmur Resp: CTA, comfortable WOB Abd: Soft, NTND, +BS Ext: No edema Skin: No rash or lesions noted Neuro: A&O x3, moves all extremities, no focal deficits Objective Imaging Chest x-ray: Radiologist's impression: Patchy opacities at the left lung base, which may represent atelectasis, aspiration or pneumonia in appropriate clinical setting. Approved by: Lisha Leon M.D.,Ph.D. on 08/14/2023 at 15:33 Labs 08/15/23 07:55 08/15/23 07:55 Labs: Laboratory Results - last 24 hr 08/14/23 08/15/23 20:15 07:55 WBC 10.6 10.8 RBC 3.59 L 3.56 L Hgb 10.7 L 10.7 L Hct 32.5 L 32.4 L MCV 90.7 91.0 MCH 29.9 30.1 MCHC 33.0 33.1 RDW 14.5 14.6 Plt Count 206 216 Neut % (Auto) 77.9 H 77.6 H Lymph % (Auto) 9.5 L 11.7 L [place] % (Auto) 10.9 8.8 Eos % (Auto) 1.3 L 1.6 L Baso % (Auto) 0.4 0.3 Neut # (Auto) 8300 H 8400 H Lymph # (Auto) 1000 L 1300 [place] # (Auto) 1200 H 900 Eos # (Auto) 100 200 Baso # (Auto) 0 0 Sodium 134 L Potassium 4.5 Chloride 99 Carbon Dioxide 34 H BUN 24 H Creatinine 0.85 Estimated GFR > 60 BUN/Creatinine Ratio 28.2 H Glucose 104 Calcium 8.7 Total Bilirubin 1.1 AST 26 ALT 19 Alkaline Phosphatase 64 Total Protein 6.2 L Albumin 3.6 Globulin 2.6 Albumin/Globulin Ratio 1.4 [facility] Medical History (Updated 08/15/23 @ 18:17 by Jani Lynch MD) Easy bruisability History of cardioversion Raynauds syndrome (12/14/10) Atrial fibrillation with RVR COPD (chronic obstructive pulmonary disease) Uterine cancer (1994) Ovarian cancer (1994) Osteoporosis (2015) Osteoarthritis Atrial fibrillation (2013) Hypertension Lung cancer (2006) Surgical History Anesthesia History of pneumonectomy (05/23/08) History of oophorectomy (1994) History of hip replacement (01/2013) History of breast augmentation (1992) History of bilateral salpingo-oophorectomy (BSO) Status post hysterectomy (1994) Family History Father Hypertension Prostate cancer Grandfather Stroke Grandmother Diabetes mellitus Mother Diabetes mellitus, type II Hypertension Stroke Grandfather No problems noted. Grandmother No problems noted. Social History marital status: unmarried,single household members: none lives independently: Yes pets and animals: Yes education level: college occupational status: other Smoking Status: Former smoker Tobacco: How many years used: 19 second hand exposure: No alcohol intake: current substance use type: does not use Assessment & Plan Assessment and plan (1) Closed fracture of inferior pubic ramus: Qualifiers: Encounter type: initial encounter Laterality: right Qualified Code(s): S32.591A - Other specified fracture of right pubis, initial encounter for closed fracture Status: Acute (2) Closed fracture of symphysis pubis: Qualifiers: Encounter type: initial encounter Laterality: unspecified laterality Qualified Code(s): S32.599A - Other specified fracture of unspecified pubis, initial encounter for closed fracture Status: Acute (3) Ground-level fall: Status: Acute (4) COPD (chronic obstructive pulmonary disease): Qualifiers: COPD type: unspecified COPD Qualified Code(s): J44.9 - Chronic obstructive pulmonary disease, unspecified Status: Chronic (5) Chronic atrial fibrillation: Status: Chronic Assessment & Plan narrative: 82-year-old female with atrial fibrillation, COPD, hx of lung cancer s/p pneumonectomy, hx of recent nonoperative left hip fracture requiring hospitalization 04/09-04/13 with hospitalization complicated by SVT requiring cardioversion for treatment, who presented after ground level fall at home. Found to have right sided hip fracture. 1) Hip fracture: - Tylenol, Oxycodone, Dilaudid PRN for pain control - Ortho consulted, appreciate recommendations - Weightbearing as tolerated with walker - Aspirin BID - PT/OT consulted 2) Ground level fall: Mechanical in nature with loss of balance. Very low concern for more serious etiology. - Continue balance exercises as outpatient with PT guidance 3) COPD with acute respiratory failure: Slowly decreasing supplemental O2 requirement, currently 0 L when at rest. CXR with patchy opacities at LLB, favor atelectasis > aspiration or pneumonia given well-appearing patient without any clinical symptoms of systemic infection. - Albuterol PRN - Continue home Tiotropium 4) Atrial fibrillation: Currently rate controlled. Followed closely by Cardiology. - Continue home carvedilol, amlodipine, amiodarone - Soft BP to 89/39 when medications given together; asymptomatic, continue to monitor and consider spacing medication administration - Continue baby aspirin as above FEN: General diet Code: Full DVT ppx: SCDs Dispo: PT recommends sniff rehab placement, unsafe to discharge home due to living alone. Per CM discharge likely Saturday 6.8.24 when patient can use her MCR SNF benefit if accepted by [facility]. Time Spent With Patient Time with patient: less than 30 minutes IH PROFEE Charge codes Subsequent inpatient/observation care: [id number]
[2023-08-15] MEDS: ATORVASTATIN 20 MG TABLET 10 MG PO (21:01)
[2023-08-16] VITALS (8 sets, daily range): BP systolic 103–162; BP diastolic 45–87; PULSE 71–88; RESP 18–24; TEMP 36.6–37.2; O2SAT 90–96
[2023-08-16] MEDS: OXYCODONE IR 5 MG TABLET PO (04:07)
[2023-08-16] MEDS: ACETAMINOPHEN 325 MG TABLET 650 MG PO ×2 (04:08→16:32)
[2023-08-16] MEDS: ALBUTEROL 1.25 MG/3 ML NEB (PEDIATRIC) INH (04:39)
--- NOTE | 2023-08-16 09:06 | PM.DS.1 ---
History of Present Illness History of Present Illness Date Patient Seen: 08/17/23 Chief complaint: GL fall rt hip pain Narrative: Pt is an 82yo woman with atrial fibrillation, COPD, hx of lung cancer s/p pneumonectomy, hx of recent nonoperative left hip fracture requiring hospitalization 04/09-04/13 with hospitalization complicated by SVT requiring cardioversion for treatment, who presented after ground level fall at home. The pt reports that last night she was doing her balance exercises, standing in tandem, when she lost her balance and fell backwards onto her buttocks onto the ground. She bumped her head on the ground, but does not feel it hit hard. She instantly had severe pain in her right hip. She was able to get to her knees and crawl out of the restroom to her phone, and contacted her neighbors. They came over, and ultimately EMS was contacted. The pt now reports that her pain is minimal if she is stationary, but severe with any movement. She denies any associated chest pain, SOB, palpitations. She denies any focal neurological symptoms or weakness. She feels she simply lost her balance. In the ER, the pt had hip xray and CT completed that showed right inferior pubic rami fracture and fracture of the pubic symphysis. Ortho was consulted. Discharge Providers Provider Date of admission: 08/14/23 06:08 Discharge Date: 08/17/23 Primary care physician: Rosio Puckett MD Consults: 08/14/23 06:06 Consult to Orthopedic Surgery Stat Comment: Consulting Provider: Paulette Mejía Reason for consultation: Pubic rami fracture Has provider been notified: Yes 08/14/23 09:41 Consult to Occupational Therapy Evaluate & Treat Comment: Physician Instructions: Evaluate and treat Consult to Physical Therapy Evaluate & Treat Comment: Physician Instructions: Evaluate and Treat Discharge provider: Rosio Puckett MD Summary Hospital Course Discharge Diagnosis: 1) Pelvic fracture 2) Ground level fall 3) COPD with acute respiratory failure 4) Atrial fibrillation Hospital Course: The pt was admitted with pelvic fracture in multiple locations. Ortho was consulted, and the fractures were nonoperative. They recommended weight bearing with support. The pt was seen by PT while in the hospital, who recommended SNF at discharge due to the pt living independently at home. At admission the pt had mild hypoxia. CXR was completed that showed atelectasis vs aspiration vs pneumonia. The pt was otherwise asymptomatic with no elevation in WBC count, and therefore atelectasis was favored. She was encouraged to use an IS while in the hospital and continued on her usual home breathing treatments. At the time of discharge she was on 0-1L of oxygen. The pts pain remained well controlled on PO oxycodone while in the hospital. She was initiated on Miralax to assist with BMs. She will discharge to [facility] for ongoing recovery. Status at Discharge Cognitive/behavioral status at discharge: oriented Functional status at discharge: uses cane/walker Overall status at discharge: patient is progressing back to baseline Exam Vital Signs (past 8 hours): - 08/16/23 02:00 08/16/23 06:00 Temperature 98.3 F 98.9 F Pulse Rate 88 77 Respiratory Rate 19 24 Blood Pressure 162/53 H 103/45 L Pulse Oximetry 93 95 Oxygen Flow Rate 1 1 Fraction of Inspired Oxygen 28 SaO2/FiO2 Ratio 328 Oxygen Delivery Method Nasal Cannula Oxygen Flow Rate 1 Narrative Exam Narrative: Gen: NAD, sitting comfortably in chair, appears well HEENT: normocephalic, atraumatic CV: irregularly irregular rhythm, grade 2/6 systolic murmur Resp: clear to auscultation, no wheezes or crackles Ext: no edema Objective Labs 08/15/23 07:55 08/15/23 07:55 [facility] Medical History (Updated 08/15/23 @ 18:17 by Jani Lynch MD) Easy bruisability History of cardioversion Raynauds syndrome (12/14/10) Atrial fibrillation with RVR COPD (chronic obstructive pulmonary disease) Uterine cancer (1994) Ovarian cancer (1994) Osteoporosis (2015) Osteoarthritis Atrial fibrillation (2013) Hypertension Lung cancer (2006) Surgical History Anesthesia History of pneumonectomy (05/23/08) History of oophorectomy (1994) History of hip replacement (01/2013) History of breast augmentation (1992) History of bilateral salpingo-oophorectomy (BSO) Status post hysterectomy (1994) Family History Father Hypertension Prostate cancer Grandfather Stroke Grandmother Diabetes mellitus Mother Diabetes mellitus, type II Hypertension Stroke Grandfather No problems noted. Grandmother No problems noted. Social History marital status: unmarried,single household members: none lives independently: Yes pets and animals: Yes education level: college occupational status: other Smoking Status: Former smoker Tobacco: How many years used: 19 second hand exposure: No alcohol intake: current substance use type: does not use Discharge Plan Discharge Plan Patient Disposition: SNF Transfer to: [facility] Discharge orders & Medications Prescriptions: New polyethylene glycol 3350 17 gram Powder In Packet 17 g PO DAILY PRN (Reason: Constipation) Qty: 100 0RF oxycodone 5 mg Tablet 5 mg PO Q3H PRN (Reason: Pain, Moderate (4-6)) Qty: 30 0RF Continued (DME) Disabled Parking See Rx Instructions .ROUTE .MEDSUPPLY Qty: 1 0RF Rx Instructions: I find this patient to be medically disabled and qualified for Permanent Disabled Parking as indicated, and signed, on the Accompanying Disabled Parking Application for Individuals tiotropium bromide 18 mcg capsule, w/inhalation device 1 cap inhalation DAILY Qty: 90 3RF Rx Instructions: puncture 1 cap using device; one dose = 2 inhalations furosemide 40 mg tablet 40 mg PO QAM Qty: 90 3RF atorvastatin 20 mg tablet 10 mg PO BEDTIME Qty: 45 0RF Rx Instructions: Needs labs prior to future refills calcium carbonate-vitamin D3 [Calcium 600 + D(3)] 600 mg(1,500mg) -200 unit Tablet 2 tab PO DAILY multivitamin with minerals Tablet 1 tab PO DAILY amiodarone 200 mg tablet 200 mg PO DAILY carvedilol 3.125 mg tablet 3.125 mg PO BID potassium chloride 20 mEq tablet extended release 20 meq PO DAILY amlodipine 2.5 mg Tablet 2.5 mg PO DAILY ferrous sulfate 325 mg (65 mg iron) tablet 325 mg PO Q OTHER DAY acetaminophen 325 mg Tablet 650 mg PO Q6H PRN (Reason: Fever/Mild Pain (1-3)) Qty: 90 0RF aspirin 81 mg capsule 81 mg PO DAILY Qty: 90 0RF Follow up/Referrals: Rosio Puckett MD [Primary Care Provider] - 1 Month Kymberly Hough MD [Physician] - 2 Weeks (Follow up w/ Dr Hough for repeat xrays.) Diet/Activity/Treatments Diet: Diet as Tolerated and Regular Activity: Weightbearing as tolerated. Use walker for next 4-6 weeks. Skin/Wound/Dressing Care Report to your healthcare provider any signs of infection, such as:: chills, fever and increased pain Visit Report/Discharge Packet Stand Alone Forms: Patient Portal/API Discharge Data Primary Care Provider: Rosio Puckett
[2023-08-16] MEDS: ASPIRIN EC 81 MG TABLET PO ×2 (09:07→21:10)
[2023-08-16] MEDS: DOCUSATE 100 MG CAPSULE PO ×2 (09:07→21:10)
[2023-08-16] MEDS: AMIODARONE 200 MG TABLET PO (09:07)
[2023-08-16] MEDS: polyethylene glycoL 3350 17 GM POWD.PACK PO (09:07)
[2023-08-16] MEDS: SODIUM CHLORIDE 0.9% FLUSH 10 ML IV ×2 (09:08→21:10)
[2023-08-16] MEDS: FUROSEMIDE 40 MG TABLET PO (09:08)
[2023-08-16] MEDS: CALCIUM CARBONATE 500 MG TAB 1000 MG PO (09:08)
[2023-08-16] MEDS: CHOLECALCIFEROL (VITAMIN D3) 1,000 UNIT TABLET 2000 UNIT PO (09:08)
[2023-08-16] MEDS: IPRATROPIUM 0.5 MG/2.5 ML NEB INH ×2 (11:19→19:43)
--- NOTE | 2023-08-16 12:41 | PT.IPTN ---
Current Diagnoses Chronic atrial fibrillation (08/14/23) Chronic obstructive pulmonary disease, unspecified (08/14/23) Fracture of superior rim of right pubis, initial encounter for closed fracture (08/14/23) Other specified fracture of right pubis, initial encounter for closed fracture (08/14/23) Other specified fracture of unspecified pubis, initial encounter for closed fracture (08/14/23) Fall on same level, unspecified, initial encounter (08/14/23) Physical Therapy Treatment Note M2 PT-IP Current Condition Start: 08/14/23 16:30 Freq: NEEDED Status: Active Protocol: Document 08/14/23 15:10 AB (Rec: 08/14/23 16:47 AB [id number]) Physical Therapy Current Condition Current Condition Evaluation Date 08/14/23 Treatment Diagnosis GLF; B pubic symphysis fx; R inf pubic ramus fx; difficulty in walking Onset Date 08/14/23 M3 PT-IP Subjective Start: 08/14/23 16:30 Freq: NEEDED Status: Active Protocol: Document 08/16/23 13:20 TS (Rec: 08/16/23 13:29 TS [id number]) Subjective Physical Therapy Visit Type Type Treatment Note Visit Start Time 12:41 Visit Stop Time 13:19 Number of DEVELOPMENT TECHNICAL LEAD Visits 2 Physical Therapy Visit Comments Patient Comments Pt found resting in chair, reports feeling weaker today, is agreeable to PT. Therapy Pain Assessment Pain When Pain Assessed During Mobility Pain Present Pain Present Pain Reported M4 PT-IP Mobility and Gait Start: 08/14/23 16:30 Freq: NEEDED Status: Active Protocol: Document 08/16/23 13:20 TS (Rec: 08/16/23 13:29 TS [id number]) PT-Transfer Assessment Sit to and From Stand Sit to and from Stand Minimal Assistance,1 Person Assistance Equipment Transfer Assistive Device Gait Belt,Front Wheeled Walker Orthotic/Prosthetic Devices or Brace: No Comments Mobility Comments Pt is resting on 1L at 86%, increased to 2L's Spo2 93%, RN was notified. STS from chair Nikia for balance with use of FWW. Pt is incontinent when she stands. She ambulated in room ~30'CGA with slow step to gait. Pt requested to use commode and change of brief, nursing into assist. STS from commode Nikia with FWW. Pt ambulated back to chair with FWW. Spo2 86% on 2L's, pt required cues for PLB, Spo2 increased to 96% on 2L's. Pt was left in chair, all needs met, RN notified. Gait Assessment Gait Gait Assistance Required: Contact Guard Assist Distance (Feet) 30 Able to Maintain Weight Bearing Status Yes During Gait Assistive Devices Assistive Device Gait Belt,Front Wheeled Walker Orthotic/Prosthetic Devices or Brace: No Gait Deviations General Gait Pattern Antalgic,Decreased Stride Length,Decreased Feet Clearance,Step-to Gait Factors Limiting Gait Function Factors Limiting Gait Function Decreased Activity Tolerance, Decreased Strength,Difficulty Following Directions,Limited Range of Motion,Pain,Poor Balance,Poor Safety Awareness, Respiratory Distress Comments Gait Comments See mobility comments PT-Balance Assessment Sitting Balance and Reactions Static Sitting Balance Ability Good Dynamic Sitting Balance Ability Fair Standing Balance and Reactions Static Standing Balance Ability Fair Dynamic Standing Balance Ability Poor Device Used FWW M5 PT-IP Objective Assessments Start: 08/14/23 16:30 Freq: NEEDED Status: Active Protocol: Document 08/14/23 15:10 AB (Rec: 08/14/23 16:47 AB [id number]) Orientation Orientation/Cognition Level of Alertness Alert Orientation Name,Place,Situation Language Function Ability Hard of Hearing Safety Awareness Decreased Safety Awareness Memory Description No Deficits Noted Gross Range of Motion Lower Extremity ROM Assessment Within Functional Limits Impairments (+) R knee crepitus and L shoulder crepitus Strength Lower Extremity Strength Hip 3+/5 Knee 4-/5 Muscle Tone Muscle Tone WNL Yes M6 PT-IP Treatment Start: 08/14/23 16:30 Freq: NEEDED Status: Active Protocol: Document 08/16/23 13:20 TS (Rec: 08/16/23 13:29 [id number]) Physical Therapy Treatment Education Education Provided Weight Bearing Status,Safety M7 PT-IP Assessment and Plan Start: 08/14/23 16:30 Freq: NEEDED Status: Active Protocol: Document 08/16/23 13:20 TS (Rec: 08/16/23 13:29 [id number]) PT Summary Assessment and Plan Potential Rehabilitation Potential Fair Summary Impairments Pain,ROM,Strength,Balance, Coordination,Sensation,Tone, Cognition,Bed Mobility, Transfers,Gait,Activity Tolerance Progress Towards Goals Slow Progress due to Pain,Slow Progress due to Medical Issues,Slow Progress due to Activity Tolerance Assessment Summary Pt continues to make some progress but is limited by poor activity tolerance and ongoing medical issues. She is Nikia for STS from chair/ commode. She continues to ambulate ~30'CGA with slow step to gait and use of FWW. Pt required increased in o2 to 2L's for mobility(see vitals in mobility comments). PT continues to recommend SNF. Goals Bed Mobility Goal Standby Assistance Transfer Goal Standby Assistance,Front Wheeled Walker Gait Goal Standby Assistance,Front Wheel Walker Gait Distance 50 Other Goals improve bed mobility, transfers, ambulation using LRAD ~ 150 ft mod I up/down 2 steps B rails SBA Days to Meet Goals 10 Frequency of Treatment Frequency Of Treatment Once a Day Treatment Plan Physical Therapy Treatment Plan Bed Mobility Training,Transfer Training,Gait Training, Therapeutic Exercise,Balance Retraining,Discharge Planning, Hot or Cold Pack,Neuromuscular Re-ed,Coordination Retraining Precautions Other Precautions falls Weight Bearing Status Weight Bearing Status Weight Bear as Tolerated Allowed Weight Bearing Amount (enter % BLE WBAT or #) (%) Recommendations To Nursing Amount of Assist Needed 1 Person Assist Discharge Recommendations PT Discharge Recommendations SNF Rehab Transportation Needs at Discharge Wheelchair/Cabulance
--- NOTE | 2023-08-16 17:20 | OT.IP.TRT ---
Current Diagnoses Chronic atrial fibrillation (08/14/23) Chronic obstructive pulmonary disease, unspecified (08/14/23) Fracture of superior rim of right pubis, initial encounter for closed fracture (08/14/23) Other specified fracture of right pubis, initial encounter for closed fracture (08/14/23) Other specified fracture of unspecified pubis, initial encounter for closed fracture (08/14/23) Fall on same level, unspecified, initial encounter (08/14/23) Occupational Therapy Treatment Note M2 OT-IP Current Condition Start: 08/14/23 16:54 Freq: Status: Active Protocol: Document 08/14/23 15:25 [facility] (Rec: 08/14/23 17:16 [facility] [id number]) Occupational Therapy Current Condition Current Condition Evaluation Date 08/14/23 Treatment Diagnosis GLF Bilateral Pubic Symphysis fx, R inf Pubic Ramus fx Diagnosis Onset Date 08/14/23 Weight Bearing Status Weight Bearing Status Weight Bear as Tolerated M3 OT- IP Subjective and Pain Start: 08/14/23 16:54 Freq: Status: Active Protocol: Document 08/16/23 17:20 [facility] (Rec: 08/16/23 17:26 [facility] [id number]) OT- Subjective Occupational Therapy Visit Type Type Treatment Note Visit Start Time 17:10 Visit Stop Time 17:20 Occupational Therapy Visit Comments Patient Comments Pt asleep in the recliner. Patient/Caregiver Goals TO get better OT Pain Assessment Pain When Pain Assessed At Rest Pain Present Pain Present Pain Reported M7 OT- IP Mobility and Balance Start: 08/14/23 16:54 Freq: Status: Active Protocol: Document 08/16/23 17:20 [facility] (Rec: 08/16/23 17:26 [facility] [id number]) OT-Transfer Assessment Comments Mobility Comments Pt complaining of her shoulder hurting. Able to assist pt with positioning needs of placing pillow underneath her computer and cell phone. In addition the pillow to help support her book so easier on her arthritis hands to be able to read the book. In addition rolled towels and placed underneath her elbow to help support her arms as pt is very petite and armrest are too wide to support her. M8 OT- IP Objective Assessments Start: 08/14/23 16:54 Freq: Status: Active Protocol: Document 08/14/23 15:25 [facility] (Rec: 08/14/23 17:16 [facility] [id number]) OT Gross Range of Motion Upper Extremity Range of Motion Assessment Left Impaired OT Strength Upper Extremity Strength Assessment Left Impaired Comments Strength Comments Left shoulder crepitus and 3-/ 5 to 4-/5 from proximal to distal. M9 OT- IP Assessment and Plan Start: 08/14/23 16:54 Freq: Status: Active Protocol: Document 08/16/23 17:20 [facility] (Rec: 08/16/23 17:26 [facility] [id number]) OT Summary Assessment and Plan Potential Rehabilitation Potential Good Analytic Complexity at Evaluation Moderate Summary OT Impairments Pain,Range of Motion,Strength, Balance,Functional Mobility, Grooming,Dressing,Toileting, Bathing,Toilet Transfers, Shower Transfers,Activity Tolerance Progress Towards Goals Progressing Toward Goals,Slow Progress due to Pain,Slow Progress due to Medical Issues ,Slow Progress due to Activity Tolerance Assessment Summary Able to talk about energy conservation and positioning needs for her BUE to help decrease pain while seated and reading or using her electronic devices. Pt to go to skilled rehab when medically stable. Goals Self-Feeding Goal Independent Grooming Goal Independent Dressing Goal Independent,Long Handled Shoe Horn,Flat Ironer,Sock Aid Toileting Goal Independent Bathing Goal Independent Toilet Transfer Goal Independent Shower Transfer Goal Independent Days to Meet Goals 24 Frequency of Treatment Frequency Of Treatment Once a Day Treatment Plan OT Treatment Plan ADL Training,Functional Mobility,Patient/Family Education,Discharge Planning Discharge Recommendations OT Discharge Recommendations SNF Rehab Transportation Needs at Discharge Wheelchair/Cabulance
[2023-08-16] MEDS: ATORVASTATIN 20 MG TABLET 10 MG PO (21:10)
[2023-08-17] MEDS: IPRATROPIUM 0.5 MG/2.5 ML NEB INH (08:10)
[2023-08-17] MEDS: ASPIRIN EC 81 MG TABLET PO (09:00)
[2023-08-17] MEDS: CHOLECALCIFEROL (VITAMIN D3) 1,000 UNIT TABLET 2000 UNIT PO (09:00)
[2023-08-17] MEDS: DOCUSATE 100 MG CAPSULE PO (09:00)
[2023-08-17] MEDS: AMIODARONE 200 MG TABLET PO (09:00)
[2023-08-17] MEDS: FERROUS SULFATE 325 MG TABLET PO (09:00)
[2023-08-17] MEDS: CALCIUM CARBONATE 500 MG TAB 1000 MG PO (09:00)
[2023-08-17] MEDS: FUROSEMIDE 40 MG TABLET PO (09:00)
[2023-08-17] MEDS: SODIUM CHLORIDE 0.9% FLUSH 10 ML IV (09:00)
--- NOTE | 2023-08-17 16:08 | PC.NURSE ---
See downtime manual charting
== END 2023-08-17 11:30 | DRG 535 ==
LOC: ED 06:05 → AC 06:10
PROVIDERS: Admitting Provider Family Medicine; Emergency Provider Emergency Medicine; PCP Family Medicine; Referring Provider Emergency Medicine; Visit Provider Family Medicine
DX: S32.511A Fracture of superior rim of right pubis, initial encounter for closed fracture (principal); J96.01 Acute respiratory failure with hypoxia; I48.20 Chronic atrial fibrillation, unspecified; J98.11 Atelectasis; J44.9 Chronic obstructive pulmonary disease, unspecified; S32.512A Fracture of superior rim of left pubis, initial encounter for closed fracture; S32.591A Other specified fracture of right pubis, initial encounter for closed fracture; I10 Essential (primary) hypertension; W18.30XA Fall on same level, unspecified, initial encounter; Z96.643 Presence of artificial hip joint, bilateral; Z85.118 Personal history of other malignant neoplasm of bronchus and lung; Z90.2 Acquired absence of lung [part of]; Z87.891 Personal history of nicotine dependence
CPT/HCPCS: 36415; 71045; 72192; 73502; 80053; 85025; 93005; 94640; 94760; 97116; 97162; 97166; 97530; 97535; 99222; 99232; 99238; 99284; 99285; J7613

== ENCOUNTER 2023-10-14 12:54 | Inpatient (IN) | payer MEDICARE, OTHER, SELFPAY ==
[2023-08-14 11:04] VITALS: BMI 29.0
[2023-10-14] VITALS (24 sets, daily range): BP systolic 125–191; BP diastolic 56–91; PULSE 55–87; RESP 20–35; TEMP 36.9–37.1; O2SAT 88–98; BMI 19.0
--- NOTE | 2023-10-14 13:06 | DI.RAD.S_ITS ---
PROCEDURE: XR CHEST 1V INDICATIONS: Shortness of breath TECHNIQUE: One view of the chest was acquired. COMPARISON: [facility], CR, XR CHEST 1V, 08/14/2023, 14:31. [facility], CR, XR CHEST 1V, 04/09/2023, 18:14. FINDINGS: Surgical changes and devices: Right pneumonectomy. Lungs and pleura: Left lung is clear. Complete opacification of the right thoracic cavity. Mediastinum: Mediastinal contours appear normal. Heart size is normal. Bones and chest wall: No suspicious bony lesions. Overlying soft tissues appear unremarkable. IMPRESSION: No acute cardiopulmonary abnormality is seen. Dictated by: Kam Owens M.D. on 10/14/2023 at 13:35 Approved by: Kam Owens M.D. on 10/14/2023 at 13:35
--- NOTE | 2023-10-14 13:22 | EKG_ITS ---
[id number] [address] Test Date: 2023-10-14 Pat Name: Cecille Toledo Department: Room: Gender: Female Cost Recovery Technician: STACEY : 1940 Requested By: Order Number: [id number] Reading MD: Ammon Toney MD Measurements Intervals [place] Rate: 71 P: [place]: QRS: 254 QRSD: 100 T: 59 QT: 422 QTc: 458 Interpretive Statements Sinus rhythm with wandering atrial pacemaker Right superior axis deviation Minimal voltage criteria for LVH, may be normal variant ( [place] product ) Inferior infarct , age undetermined Electronically Signed On 10-14-2023 16:47:13 PDT by Ammon Toney MD
--- NOTE | 2023-10-14 13:45 | PC.NURSE ---
This RN SBA while patient ambulates from bathroom to room 12. Respirations are 32-36 and she reports being short of breath. Pt denies chest pain. RT is called for eval and treat. Pt respirations improve after sitting and resting.
[2023-10-14 13:47] LABS: Add Manual Diff / Slide Review NO; Basophils Absolute Auto 0 /uL (0-100); Basophils Percent Auto 0.4 % (0-2); Eosinophils Absolute Auto 100 /uL (0-450); Eosinophils Percent Auto 1.6 % (2-4); Hematocrit 37.5 % (36-46); Hemoglobin 12.2 g/dL (12.0-16.0); Lymphocytes Absolute Auto 1100 /uL (1100-4500); Lymphocytes Percent Auto 14.3 % (25-40); Mean Corpuscular HGB Conc 32.5 % (30-36); Mean Corpuscular Hemoglobin 29.3 PG (26-34); Mean Corpuscular Volume 90.1 fL (80-100); Monocytes Absolute Auto 800 /uL (0-900); Neutrophils Absolute Auto 5600 /uL (1500-7000); Neutrophils Percent Auto 73.7 % (50-75); Platelet Count 341 X10^3/uL (150-400); Red Blood Cell Count 4.16 X10^6/uL (4.0-5.2); Red Cell Distribution Width 15.9 % (11.6-14.8); White Blood Cell Count 7.5 X10^3/uL (4.5-11.0)
[2023-10-14 13:49] LABS: Prothrombin Time 11.7 SECONDS (9.4-12.5)
[2023-10-14 13:54] LABS: Alanine Aminotransferase 17 IU/L (<35); Albumin 4.6 g/dL (3.5-5.0); Albumin Globulin Ratio 1.4 (1.0-2.8); Alkaline Phosphatase 123 U/L (38-126); Aspartate Aminotransferase 27 IU/L (14-36); BUN Creatinine Ratio 30.8 (6-22); Bilirubin Total 0.7 mg/dL (0.2-1.3); Blood Urea Nitrogen 20 mg/dL (7-17); Calcium 9.8 mg/dL (8.4-10.2); Carbon Dioxide 33 mmol/L (22-32); Chloride 97 mmol/L (98-107); Estimated Glomerular Filt Rate > 60 mL/min (>60); Globulin 3.4 g/dL (1.7-4.1); Glucose 92 mg/dL (80-110); HEMOLYSIS < 15 (0-50); Lactate (Lactic Acid) 1.3 mmol/L (0.7-2.1); Potassium 3.4 mmol/L (3.4-5.1); Sodium 136 mmol/L (137-145)
--- NOTE | 2023-10-14 13:56 | PC.NURSE ---
Pt reports hx of RIGHT sided lung removal in 2007 due to lung cancer.
[2023-10-14 14:05] LABS: NT-proBNP (BNP-Adult 18+) 833 pg/mL (<450); Troponin I < 0.012 ng/mL (0.01-0.034)
--- NOTE | 2023-10-14 14:50 | ED_ITS ---
HPI - SOB/Dyspnea General Chief Complaint: Shortness of Breath/Dyspnea Stated Complaint: SoB Time Seen by Provider: 10/14/23 14:50 Source: patient Mode of arrival: Ambulatory Limitations: no limitations History of Present Illness HPI Narrative: 83-year-old female with history of atrial fibrillation, on aspirin daily, prior pneumonectomy on the right in 2007 for lung cancer, CHF who presents with shortness of breath. Patient states has been slowly progressive over weeks to months. Patient states she is noted increasing exertional dyspnea. Was using O2 in the evening at her rehab facility was discharged on 09/09/2023 she was hospitalized for pelvic fracture that was nonoperative did do rehab that has been a lot of time her wheelchair. She notes no fevers, no chills no cold cough or congestion, no chest pain, no nausea or vomiting no other GI or urinary symptoms. No new swelling of extremities. Patient states she used to take warfarin but that was stopped in February. She notes she takes an aspirin daily, atorvastatin, amiodarone, carvedilol, amlodipine, Feosol, Lasix, potassium and Spiriva. Has had prior pneumonectomy for cancer, did smoke from her age [age] or 29, prior hysterectomy, right hip replacement and left knee replace it remotely. No known drug allergies. No tobacco, alcohol or recreational drugs. Dr. Puckett is her primary care physician, Related Data Home Medications Medication Instructions Recorded Confirmed calcium carbonate 600 mg-vitamin 2 tab PO DAILY 06/24/18 10/14/23 D3 5 mcg (200 unit) tablet (Calcium 600 + D(3)) multivitamin with minerals 1 tab PO DAILY 06/24/18 10/14/23 amlodipine 2.5 mg tablet 2.5 mg PO DAILY 05/25/21 10/14/23 ferrous sulfate 325 mg (65 mg 325 mg PO Q OTHER DAY 01/09/23 10/14/23 iron) tablet amiodarone 200 mg tablet 200 mg PO DAILY 08/14/23 10/14/23 carvedilol 3.125 mg tablet 3.125 mg PO BID 08/14/23 10/14/23 potassium chloride 20 mEq 20 meq PO DAILY 08/14/23 10/14/23 tablet,extended release Previous Rx's Medication Instructions Recorded Disabled Parking #1 ea 07/03/22 tiotropium bromide 18 mcg capsule 1 cap inhalation DAILY #90 12/04/22 with inhalation device inhalations acetaminophen 325 mg tablet 650 mg (2 x 325 mg) PO Q6H PRN 04/12/23 Fever/Mild Pain (1-3) #90 tabs aspirin 81 mg capsule 81 mg PO DAILY #90 caps 04/12/23 furosemide 40 mg tablet 40 mg PO QAM #90 tabs 04/15/23 atorvastatin 20 mg tablet 10 mg (1/2 x 20 mg) PO BEDTIME #45 08/08/23 tabs Allergies Allergy/AdvReac Type Severity Reaction Status Date / Time No Known Drug Allergies Allergy Verified 10/14/23 13:06 Review of Systems Review of Systems ROS Unobtainable: All systems reviewed & are unremarkable except as noted in HPI and below Patient History Medical History Easy bruisability History of cardioversion Raynauds syndrome (12/14/10) Atrial fibrillation with RVR COPD (chronic obstructive pulmonary disease) Uterine cancer (1994) Ovarian cancer (1994) Osteoporosis (2015) Osteoarthritis Atrial fibrillation (2013) Hypertension Lung cancer (2006) Surgical History Anesthesia History of pneumonectomy (05/23/08) History of oophorectomy (1994) History of hip replacement (01/2013) History of breast augmentation (1992) History of bilateral salpingo-oophorectomy (BSO) Status post hysterectomy (1994) Family History Father Hypertension Prostate cancer Grandfather Stroke Grandmother Diabetes mellitus Mother Diabetes mellitus, type II Hypertension Stroke Grandfather No problems noted. Grandmother No problems noted. Social History marital status: unmarried,single household members: none lives independently: Yes pets and animals: Yes education level: college occupational status: other Smoking Status: Former smoker Tobacco: How many years used: 19 second hand exposure: No alcohol intake: current substance use type: does not use Smoking Status: Former smoker alcohol intake frequency: holidays/special occasions only Substance Use Type: does not use Exam Narrative Exam Narrative: GENERAL: Alert and oriented x three, elderly female in mild distress. HEENT: Head normocephalic, atraumatic, EOMI, pupils reactive, face symmetric, moist mucous membranes NECK: Supple, full range of motion CARDIOVASCULAR: Regular rate and rhythm without murmurs, rubs or gallops. No JVD. Mild edema bilateral lower extremities. RESPIRATORY: Breath sounds equal bilaterally, no wheezes rales or rhonchi. No tachypnea or accessory muscle use. Patient is on nasal cannula 1 L but states she does not use at home. ABDOMEN: Soft, nontender. Normoactive bowel sounds all 4 quadrants. No guarding or rebound, rigidity, no mass : No CVA tenderness EXTREMITIES: Normal range of motion, no clubbing. Neurovascularly intact NEUROLOGICAL: Cranial nerves II through XII grossly intact. Moving all extremities SKIN: Warm, dry, no petechiae, no rashes or lesions. Initial Vital Signs Initial Vital Signs: Vital Signs Temperature 98.8 F 10/14/23 12:59 Pulse Rate 63 10/14/23 12:59 Respiratory Rate 20 10/14/23 12:59 Blood Pressure 167/77 H 10/14/23 12:59 Pulse Oximetry 97 10/14/23 12:59 Oxygen Delivery Method Room Air 10/14/23 12:59 Course Orders Ordered: Acetaminophen (Acetaminophen 325 Mg Tablet) 650 mg PO Q6H PRN PRN Reason: Fever/Mild Pain (1-3) Amiodarone HCl (Amiodarone 200 Mg Tablet) 200 mg PO DAILY [facility] Amlodipine Besylate (Amlodipine 5 Mg Tablet) 2.5 mg PO DAILY [facility] Aspirin (Aspirin Ec 81 Mg Tablet) 81 mg PO DAILY [facility] Atorvastatin Calcium (Atorvastatin 20 Mg Tablet) 10 mg PO BEDTIME [facility] Last Admin: 10/14/23 22:43 Dose: 10 mg Documented By: MM Carvedilol (Carvedilol 3.125 Mg Tablet) 3.125 mg PO BID [facility] Last Admin: 10/14/23 22:42 Dose: 3.125 mg Documented By: MM Enoxaparin Sodium (Enoxaparin 40 Mg/0.4 Ml Syringe) 40 mg SUBCUT DAILY [facility] Last Admin: 10/14/23 22:44 Dose: 40 mg Documented By: MM Furosemide (Furosemide 40 Mg Tablet) 40 mg PO DAILY [facility] Ipratropium Sherman (Ipratropium 0.5 Mg/2.5 Ml Neb) 0.5 mg INH RTQ6HR PRN PRN Reason: Wheezing Vital Signs Vital signs: Vital Signs - 8 hr 10/14/23 12:59 10/14/23 13:42 10/14/23 13:46 Temperature 98.8 F Pulse Rate 63 79 87 Respiratory Rate 20 25 H Blood Pressure 167/77 H Pulse Oximetry 97 91 98 Oxygen Delivery Method Room Air Oxygen Flow Rate 10/14/23 13:46 10/14/23 14:00 10/14/23 14:00 Temperature Pulse Rate 81 Respiratory Rate 28 H Blood Pressure 187/88 H 191/91 H Pulse Oximetry 95 Oxygen Delivery Method Oxygen Flow Rate 10/14/23 14:30 10/14/23 14:31 10/14/23 14:31 Temperature Pulse Rate 75 71 Respiratory Rate 29 H 35 H Blood Pressure 166/72 H Pulse Oximetry 95 96 Oxygen Delivery Method Room Air Oxygen Flow Rate 10/14/23 15:00 10/14/23 15:00 10/14/23 15:16 Temperature Pulse Rate 76 79 Respiratory Rate 22 21 Blood Pressure 180/84 H Pulse Oximetry 95 92 Oxygen Delivery Method Oxygen Flow Rate 10/14/23 15:16 10/14/23 15:30 10/14/23 15:30 Temperature Pulse Rate 83 Respiratory Rate 20 Blood Pressure 190/89 H 171/87 H Pulse Oximetry 95 Oxygen Delivery Method Oxygen Flow Rate 10/14/23 16:00 10/14/23 16:00 10/14/23 16:30 Temperature Pulse Rate 77 81 Respiratory Rate 24 Blood Pressure 167/74 H Pulse Oximetry 96 94 Oxygen Delivery Method Oxygen Flow Rate 10/14/23 16:42 10/14/23 16:42 10/14/23 16:52 Temperature Pulse Rate 73 Respiratory Rate 24 Blood Pressure 182/84 H Pulse Oximetry 90 L 88 L 96 Oxygen Delivery Method Room Air Nasal Cannula Oxygen Flow Rate 1 10/14/23 17:00 10/14/23 17:01 10/14/23 17:01 Temperature Pulse Rate 72 76 Respiratory Rate Blood Pressure 163/84 H Pulse Oximetry 95 94 Oxygen Delivery Method Oxygen Flow Rate 10/14/23 17:30 10/14/23 17:37 10/14/23 17:37 Temperature Pulse Rate 85 75 Respiratory Rate 24 Blood Pressure 142/65 H Pulse Oximetry 95 95 Oxygen Delivery Method Nasal Cannula Nasal Cannula Oxygen Flow Rate 1 1 MDM - SOB/Dyspnea Lab Data 10/15/23 05:50 10/14/23 13:20 Labs: Lab Results 10/14/23 10/14/23 Range/Units 13:20 16:41 WBC 7.5 (4.5-11.0) X10^3/uL RBC 4.16 (4.0-5.2) X10^6/uL Hgb 12.2 (12.0-16.0) g/dL Hct 37.5 (36-46) % MCV 90.1 (80-100) fL MCH 29.3 (26-34) PG MCHC 32.5 (30-36) % RDW 15.9 H (11.6-14.8) % Plt Count 341 (150-400) X10^3/uL Neut % (Auto) 73.7 (50-75) % Lymph % (Auto) 14.3 L (25-40) % [place] % (Auto) 10.0 (3-14) % Eos % (Auto) 1.6 L (2-4) % Baso % (Auto) 0.4 (0-2) % Neut # (Auto) 5600 (4231-3541) /uL Lymph # (Auto) 1100 (0921-6481) /uL [place] # (Auto) 800 (0-900) /uL Eos # (Auto) 100 (0-450) /uL Baso # (Auto) 0 (0-100) /uL PT 11.7 (9.4-12.5) SECONDS INR 1.0 (0.9-1.3) Sodium 136 L (137-145) mmol/L Potassium 3.4 (3.4-5.1) mmol/L Chloride 97 L (98-107) mmol/L Carbon Dioxide 33 H (22-32) mmol/L BUN 20 H (7-17) mg/dL Creatinine 0.65 (0.52-1.04) mg/dL Estimated GFR > 60 (>60) mL/min BUN/Creatinine Ratio 30.8 H (6-22) Glucose 92 (80-110) mg/dL Lactate 1.3 (0.7-2.1) mmol/L Calcium 9.8 (8.4-10.2) mg/dL Total Bilirubin 0.7 (0.2-1.3) mg/dL AST 27 (14-36) IU/L ALT 17 (<35) IU/L Alkaline Phosphatase 123 (38-126) U/L Troponin I < 0.012 (0.01-0.034) ng/mL NT-Pro-B Natriuret Pep 833 H (<450) pg/mL Total Protein 8.0 (6.3-8.2) g/dL Albumin 4.6 (3.5-5.0) g/dL Globulin 3.4 (1.7-4.1) g/dL Albumin/Globulin Ratio 1.4 (1.0-2.8) SARS-CoV-2 (PCR) Negative (Negative) Influenza A (RT-PCR) Flu a negative (NEGATIVE) Influenza B (RT-PCR) Flu b negative (NEGATIVE) RSV (PCR) Negative (Negative) Imaging Data Chest x-ray: Radiologist's Impression: Cecille Toledo?(Pat)??83??F??1940 ? Allergy/Adv: No Known Drug Allergies (More??) Close Chest X-Ray (Signed) Kam Owens - 10/14/23 Chest X-Ray (Signed) Lisha Leon - 08/14/23 Telemetry Strips 08/14/[address] (Signed) Call,Ramy - 08/14/23 Hip X-Ray (Signed) Call,Ramy - 08/14/23 Echocardiogram Ultrasound (Signed) Ellie Hayes - 04/12/23 Brain MRI (Signed) Javed Person - 04/10/23 Telemetry Strips 04/09/[address] (Signed) Kam Owens - 04/09/23 Chest X-Ray (Signed) Jonna Park - 04/09/23 Knee X-Ray (Signed) Caesar Zamora - 04/09/[address] (Signed) Duncan Saba - 04/06/[address] (Signed) Javed Person - 04/06/23 Hip X-Ray (Signed) Javed Person - 04/06/23 Chest X-Ray (Signed) Javed Person - 04/06/[address] (Signed) Bryan Campbell - 03/22/[address] (Signed) Adrian,Bryan - 03/22/[address] (Signed) Adrian,Bryan - 03/22/[address] (Signed) Kiviat,Kaitlyn - 03/05/[address] (Signed) Kiviat,Kaitlyn - 03/05/[address] (Signed) Kiviat,Kaitlyn - 03/05/23 Chest X-Ray (Signed) Katianaat,Kaitlyn - 02/06/23 Chest CTA (Signed) Og Davis - 01/24/23 Vascular Ultrasound (Signed) Agusto Hughes - 01/23/23 Telemetry Strips 01/09/23 Knee X-Ray (Signed) Beni Cobos - 01/09/23 Echocardiogram Ultrasound (Signed) Javon Kwok - 12/31/22 Bone Densitometry (Signed) Matthew Earl - 12/20/22 Hip X-Ray (Signed) Adrian,Bryan - 09/17/22 Chest X-Ray (Signed) Kam Owens - 07/18/22 Hip X-Ray (Signed) Matthew Earl - 07/17/22 Echocardiogram Ultrasound (Signed) Ellie Hayes - 07/17/22 Hip X-Ray (Signed) Caesar Zamora - 07/17/22 Lumbar Spine MRI (Signed) Beni Cobos - 11/10/21 Lumbar Spine X-Ray (Signed) Beni Cobos - 11/06/21 Mandible X-Ray (Signed) Matthew Earl - 06/02/21 Lumbar Spine X-Ray (Signed) Lopez Joseph - 06/02/21 Face X-Ray (Signed) Matthew Earl - 06/02/[address] (Signed) Caesar Zamora - 05/11/[address] (Signed) Caesar Zamora - 05/11/21 Ankle X-Ray (Signed) Triston Rogel - 12/08/20 Knee MRI (Signed) Luís Pablo - 09/06/20 Knee X-Ray (Signed) Triston Rogel - 08/29/20 Mammogram Diagnostic (Signed) Vivienne Ritter - 05/24/20 Breast Ultrasound (Signed) Vivienne Ritter - 05/24/20 Chest X-Ray (Signed) Kaitlyn Salgado - 02/29/[address] (Signed) Javed Person - 02/29/[address] (Signed) Javed Person - 02/29/20 Telemetry Strips 02/29/20 Telemetry Strips 02/29/[address] (Signed) Javed Person - 02/29/20 DEXA Result 02/08/20 Bone Densitometry 02/08/20 Breast Ultrasound (Signed) Call,Ramy - 12/04/19 Mammogram, Additional Views (Signed) Call,Ramy - 12/04/19 Mammogram Screening (Signed) Jani Webb - 11/25/19 Elbow X-Ray (Signed) Nghia Davisderic - 09/06/[address] (Signed) RyanOg - 09/06/[address] (Signed) Nghia Davisderic - 09/06/19 Myocardial Perfusion Scan Nuc Med (Signed) Ellie Hayes - 01/27/19 Launch?[place] [address] XRay Report Signed Patient: Cecille Toledo MR#: [id number] : 1940 Acct:[id number] Age/Sex: 83 / F Date of Service: 10/14/23 Loc: ED Accession Number: [id number] Procedure: XR chest 1V Ordering Provider: Jayla Fraser D.O. PROCEDURE: XR CHEST 1V INDICATIONS: Shortness of breath TECHNIQUE: One view of the chest was acquired. COMPARISON: [facility], XR CHEST 1V, 08/14/2023, 14:31. [facility], XR CHEST 1V, 04/09/2023, 18:14. FINDINGS: Surgical changes and devices: Right pneumonectomy. Lungs and pleura: Left lung is clear. Complete opacification of the right thoracic cavity. Mediastinum: Mediastinal contours appear normal. Heart size is normal. Bones and chest wall: No suspicious bony lesions. Overlying soft tissues appear unremarkable. IMPRESSION: No acute cardiopulmonary abnormality is seen. Dictated by: Kam Owens M.D. on 10/14/2023 at 13:35 Approved by: Kam Owens M.D. on 10/14/2023 at 13:35 ECG Data Attestation: I personally reviewed and interpreted this ECG as follows: Prior ECG tracings: available for review Interpretation: Atrial fibrillation rate of 71 QRS of 100 QTC of 458, no acute ST elevation depression noted. Patient has prior that showed AFib left axis deviation, today's EKG appears to have more PVCs but no other acute changes noted. MDM Narrative Medical decision making narrative: Labs show white count of 7.5 hemoglobin of 12 platelets of 341. Sodium of 136 potassium 3.4 chloride 97 CO2 of 33, BUN 20 creatinine 0.65 glucose of 92 lactate 1.3 calcium 9.8 LFTs are normal, troponins less than 0.012 with a BNP of 833. Patient has prior BNP is has been much more elevated in the 8909-9124 range. Chest x-ray shows no acute change. EKG shows likely AFib, regularly irregular rhythm with a rate of 71. COVID/influenza/RSV is negative. Discussed with patient her lab workup, chest x-ray and EKG overall is reassuring she does have minimal amount of long with her prior pneumonectomy but lung is clear that is present. Does note that she was in rehab for nonoperative pelvic fracture has been ambulating but has been significantly decreased in her movements lot of her dyspnea is exertional which maybe related to debility from her hospitalization and rehab but she was higher risk for pulmonary emboli she has not on any anticoagulation besides aspirin daily. Patient also is on amiodarone which could contribute as well. CT angio of chest shows no pulmonary emboli, no acute cardiopulmonary process. No pneumonia is noted or pulmonary edema. No other clear cause for hypoxia. She does have disease baseline was given 1 dose of nebulized treatment but without any improvement. At rest patient is mid 90s but drops to 77% with exertion to the bathroom when ambulating. Spoke with Dr. Nelson who accepts for observation, he is covering for her physician Dr. Puckett. Patient did note that she had O2 at night at her rehab facility but discharged home without any oxygen. Discharge Plan Departure Patient Disposition: Admitted as Observation Clinical Impression: Acute hypoxemic respiratory failure Admit Date/Time: 10/14/23 18:12 Admit Provider: Jani Nelson
--- NOTE | 2023-10-14 16:34 | DI.CT.S_ITS ---
PROCEDURE: CT ANGIO CHEST PE PROTOCOL INDICATIONS: increased sob, hx pneumonectomy, off thinners, hx pelvic fx TECHNIQUE: After the administration of intravenous contrast, 2 mm thick sections acquired from the pulmonary apices to the posterior costophrenic angles. 3-dimensional maximum intensity projection (MIP) coronal and sagittal reformats were then acquired through the thorax. For radiation dose reduction, the following was used: automated exposure control, adjustment of mA and/or kV according to patient size. COMPARISON: [facility], CT, CT ANGIO CHEST PE PROTOCOL, 01/24/2023, 12:41. FINDINGS: Image quality: Diagnostic. Pulmonary arteries: Pulmonary arteries are normal in size, and demonstrate no intraluminal filling defects to suggest central pulmonary embolism. Lower Neck: No enlarged lymph nodes. Thyroid: No thyroid nodules which require sonographic follow up, per consensus guidelines. Axillae: No enlarged lymph nodes. Chest Wall: Unremarkable. Bones: Bones are demineralized. S shaped scoliosis. No acute vertebral body compression fracture.. Lungs and Pleura: Status post right pneumonectomy. No pneumothorax or pleural effusions. No consolidation or suspicious nodules. Heart: Heart size is enlarged. No pericardial effusion. Thoracic Vessels: No aortic aneurysm. Mediastinum and Beatriz: No enlarged lymph nodes. Redemonstration of rightward mediastinal shift with heart seen in the right hemithorax region, as before. Esophagus: No wall thickening. No hiatal hernia. Upper Abdomen: Visualized upper abdomen solid organs and bowel loops appear normal. IMPRESSION: No pulmonary embolus. No acute cardiopulmonary process. Stable postoperative appearance of right pneumonectomy and rightward mediastinal shift. Approved by: Lisha Leon M.D.,Ph.D. on 10/14/2023 at 17:44
--- NOTE | 2023-10-14 16:45 | PC.NURSE ---
Tried patient on RA at provider Mank direction. Pt oxygen saturation was 88% on RA while sitting. Pt placed back on 1L via NC. Provider made aware.
--- NOTE | 2023-10-14 17:35 | PC.NURSE ---
STRINGED INSTRUMENT ASSEMBLER Note: Assisted pt by wheelchair to the restroom. Pt did not walk, but did a stand and pivot. Upon exertion during stand and pivot back into bed, pt desated to 77%. As pt got comfortable in bed, oxygen saturation slowly recovered.
[2023-10-14 17:39] LABS: COVID-19 CEPHEID 4-PLEX PCR Negative (Negative); Influenza A - CEPHEID Flu A NEGATIVE (NEGATIVE); Influenza B - CEPHEID Flu B NEGATIVE (NEGATIVE); Respiratory Syncytial Virus Negative (Negative)
[2023-10-14] MEDS: carvediloL 3.125 MG TABLET PO (22:42)
[2023-10-14] MEDS: ATORVASTATIN 20 MG TABLET 10 MG PO (22:43)
[2023-10-14] MEDS: ENOXAPARIN 40 MG/0.4 ML SYRINGE SUBCUT (22:44)
[2023-10-15] VITALS (9 sets, daily range): BP systolic 111–125; BP diastolic 44–75; PULSE 61–82; RESP 18–24; TEMP 36.6–36.9; O2SAT 88–98
--- NOTE | 2023-10-15 01:14 | PC.NURSE ---
Pt ambulated to bathroom w/FWW w/NC @ 1L O2 extension tubing. Upon return to bed, pt was SOB and dizzy even with supplemental O2; pt's WOB returned to baseline after a few minutes sitting in bed. Recommend stand & pivot to bedside commode rather than bathroom; PCT informed. Care continues.
--- NOTE | 2023-10-15 06:28 | PC.NURSE ---
During skin assessment, noted area of blanchable pinkness surrounding coccyx area, with one small unstageable PI size of dime to right of center of pink area. Pt reported no pain, states that she has had a hx of PI from a previous hospitalization in August and that it might be a healing PI. This RN unable to determine. Took picture and sent to ASHLEIGH Cam to add to [employer] record.
[2023-10-15 06:42] LABS: Add Manual Diff / Slide Review NO; Basophils Absolute Auto 0 /uL (0-100); Basophils Percent Auto 0.6 % (0-2); Eosinophils Absolute Auto 100 /uL (0-450); Eosinophils Percent Auto 1.9 % (2-4); Hematocrit 33.2 % (36-46); Lymphocytes Absolute Auto 900 /uL (1100-4500); Lymphocytes Percent Auto 15.8 % (25-40); Mean Corpuscular Hemoglobin 29.7 PG (26-34); Mean Corpuscular Volume 89.9 fL (80-100); Monocytes Absolute Auto 700 /uL (0-900); Monocytes Percent Auto 12.6 % (3-14); Neutrophils Absolute Auto 3800 /uL (1500-7000); Neutrophils Percent Auto 69.1 % (50-75); Platelet Count 300 X10^3/uL (150-400); Red Cell Distribution Width 16.5 % (11.6-14.8); White Blood Cell Count 5.5 X10^3/uL (4.5-11.0)
--- NOTE | 2023-10-15 08:31 | PM.HP.1 ---
History of Present Illness History of Present Illness Date Patient Seen: 10/15/23 Time Patient Seen: 08:10 Chief complaint: SoB Narrative: Pt is an 83yo woman with COPD, atrial fibrillation, CHF, iron deficiency anemia, HTN, and hx of lung cancer s/p right pneumonectomy who presented with worsening exertional dyspnea. The pt was recently hospitalized with pelvic fracture, and discharged to a rehab facility. While at the facility, she did require overnight oxygen, however she was not discharged with any from the faciltiy to home on 09/17. Since being home, the pt notes worsening exertional dyspnea, that acutely worsened in the last several days. She states that when seated/laying down she does not feel very SOB but with any basic movement she gets very winded. She denies any chest pain, palpitations, wheezing, cough, fevers/chills, LE swelling. She has otherwise been feeling well. In the ED, the pt was noted to by hypoxic which responded to 1L O2 via NC. CXR and CTA were negative. Lab work was unrevealing. [facility] Medical History Easy bruisability History of cardioversion Raynauds syndrome (12/14/10) Atrial fibrillation with RVR COPD (chronic obstructive pulmonary disease) Uterine cancer (1994) Ovarian cancer (1994) Osteoporosis (2015) Osteoarthritis Atrial fibrillation (2013) Hypertension Lung cancer (2006) Surgical History Anesthesia History of pneumonectomy (05/23/08) History of oophorectomy (1994) History of hip replacement (01/2013) History of breast augmentation (1992) History of bilateral salpingo-oophorectomy (BSO) Status post hysterectomy (1994) Family History Father Hypertension Prostate cancer Grandfather Stroke Grandmother Diabetes mellitus Mother Diabetes mellitus, type II Hypertension Stroke Grandfather No problems noted. Grandmother No problems noted. Social History marital status: unmarried,single household members: none lives independently: Yes pets and animals: Yes education level: college occupational status: other Smoking Status: Former smoker Tobacco: How many years used: 19 second hand exposure: No alcohol intake: current substance use type: does not use Meds Home Medications and Allergies Home Medications Medication Instructions Recorded Confirmed Type calcium carbonate 600 mg-vitamin 2 tab PO DAILY 06/24/18 10/14/23 History D3 5 mcg (200 unit) tablet (Calcium 600 + D(3)) multivitamin with minerals 1 tab PO DAILY 06/24/18 10/14/23 History amlodipine 2.5 mg tablet 2.5 mg PO DAILY 05/25/21 10/14/23 History Disabled Parking #1 ea 07/03/22 10/14/23 Rx tiotropium bromide 18 mcg capsule 1 cap inhalation DAILY #90 12/04/22 10/14/23 Rx with inhalation device inhalations ferrous sulfate 325 mg (65 mg 325 mg PO Q OTHER DAY 01/09/23 10/14/23 History iron) tablet acetaminophen 325 mg tablet 650 mg (2 x 325 mg) PO Q6H PRN 04/12/23 10/14/23 Rx Fever/Mild Pain (1-3) #90 tabs aspirin 81 mg capsule 81 mg PO DAILY #90 caps 04/12/23 10/14/23 Rx furosemide 40 mg tablet 40 mg PO QAM #90 tabs 04/15/23 10/14/23 Rx atorvastatin 20 mg tablet 10 mg (1/2 x 20 mg) PO BEDTIME #45 08/08/23 10/14/23 Rx tabs amiodarone 200 mg tablet 200 mg PO DAILY 08/14/23 10/14/23 History carvedilol 3.125 mg tablet 3.125 mg PO BID 08/14/23 10/14/23 History potassium chloride 20 mEq 20 meq PO DAILY 08/14/23 10/14/23 History tablet,extended release Allergies Allergy/AdvReac Type Severity Reaction Status Date / Time No Known Drug Allergies Allergy Verified 10/14/23 13:06 Exam Vital Signs (past 8 hours): - 10/15/23 08:05 Pulse Oximetry 98 Oxygen Delivery Method Room Air Fraction of Inspired Oxygen 24 SaO2/FiO2 Ratio 391 Oxygen Delivery Method Room Air Oxygen Flow Rate 1 Narrative Exam Narrative: Gen: NAD, sitting comfortably in chair, appears well, speaking easily in complete sentences Neck: no JVD CV: RRR, no murmurs Resp: left lung with mild expiratory wheeze, no crackles, minimally decreased air movement, right lung absent Abd: soft, nontender, nondistended Ext: no edema Neuro: no gross deficits Objective Labs 10/15/23 05:50 10/15/23 05:50 Labs: Laboratory Results - last 24 hr 10/14/23 10/14/23 10/15/23 13:20 16:41 05:50 WBC 7.5 5.5 RBC 4.16 3.70 L Hgb 12.2 11.0 L Hct 37.5 33.2 L MCV 90.1 89.9 MCH 29.3 29.7 MCHC 32.5 33.0 RDW 15.9 H 16.5 H Plt Count 341 300 Neut % (Auto) 73.7 69.1 Lymph % (Auto) 14.3 L 15.8 L Reeves % (Auto) 10.0 12.6 Eos % (Auto) 1.6 L 1.9 L Baso % (Auto) 0.4 0.6 Neut # (Auto) 5600 3800 Lymph # (Auto) 1100 900 L Reeves # (Auto) 800 700 Eos # (Auto) 100 100 Baso # (Auto) 0 0 PT 11.7 INR 1.0 Sodium 136 L Potassium 3.4 Chloride 97 L Carbon Dioxide 33 H BUN 20 H Creatinine 0.65 Estimated GFR > 60 BUN/Creatinine Ratio 30.8 H Glucose 92 Lactate 1.3 Calcium 9.8 Total Bilirubin 0.7 AST 27 ALT 17 Alkaline Phosphatase 123 Troponin I < 0.012 NT-Pro-B Natriuret Pep 833 H Total Protein 8.0 Albumin 4.6 Globulin 3.4 Albumin/Globulin Ratio 1.4 SARS-CoV-2 (PCR) Negative Influenza A (RT-PCR) Flu a negative Influenza B (RT-PCR) Flu b negative RSV (PCR) Negative Assessment & Plan Assessment & Plan narrative: Pt is an 83yo woman with COPD, atrial fibrillation, CHF, iron deficiency anemia, HTN, and hx of lung cancer s/p right pneumonectomy who presented with worsening exertional dyspnea. 1) Hypoxia with exertional dyspnea: No definitive cause. Likely in part due to deconditioning after recent pelvic fracture, although not entirely explained by this due to worsening rather than improving. Mild wheeze on exam, possible COPD contributing. BNP actually lower than usual, less likely CHF. - Add Duoneb to baseline breathing treatments - Continuous O2 monitoring - Ambulate frequently today - Room air trial overnight to see if pt would benefit from night time oxygen at home - Consider Pulmonology consult if not improving 2) COPD: Exam not consistent with severe enough exacerbation to necessitate steroids at this time. - Continue home inhalers - Duoneb PRN as above 3) CHF: Last Echo 04/2023 stable. Consider repeat Echo if symptoms not improving with treatment COPD. - Continue home statin, Carvedilol 4) Atrial fibrillation: Currently rate controlled, actually in sinus rhythm. No evidence of pulmonary fibrosis on CT, but consider if symptoms not improving. - Continue home Amiodarone 5) Iron deficiency anemia: H/H with minimal anemia today. - Continue iron supplement - Continue to trend 6) HTN: BP in good range - Continue home Amlodipine, Carvedilol FEN: General diet DVT ppx: On Lovenox Code: Full Dispo: Pending improvement/stabilization of hypoxia and exertional dyspnea. Anticipate at least one additional night. Time-Based Coding :: [TOTAL MINUTES] spent with patient and on the chart (including review of chart, obtaining history, exam, reviewing outside data, placing orders, documenting exam and treatment plan, and counseling patient) on [DATE]. Quality VTE Deep Vein Thrombosis/Pulmonary Embolism Present on Admission: No IH PROFEE Charge Codes Initial inpatient/observation care: [id number]
[2023-10-15] MEDS: carvediloL 3.125 MG TABLET PO ×2 (08:55→21:02)
[2023-10-15] MEDS: MULTIVITAMIN 1 TABLET 1 TAB PO (08:55)
[2023-10-15] MEDS: CHOLECALCIFEROL (VITAMIN D3) 1,000 UNIT TABLET 3000 UNIT PO (08:55)
[2023-10-15] MEDS: AMIODARONE 200 MG TABLET PO (08:56)
[2023-10-15] MEDS: FUROSEMIDE 40 MG TABLET PO (08:56)
[2023-10-15] MEDS: ENOXAPARIN 40 MG/0.4 ML SYRINGE SUBCUT (08:57)
[2023-10-15] MEDS: ASPIRIN EC 81 MG TABLET PO (08:57)
[2023-10-15] MEDS: AMLODIPINE 5 MG TABLET 2.5 MG PO (08:57)
[2023-10-15 09:11] LABS: Alanine Aminotransferase 13 IU/L (<35); Albumin 3.4 g/dL (3.5-5.0); Albumin Globulin Ratio 1.4 (1.0-2.8); Alkaline Phosphatase 94 U/L (38-126); Aspartate Aminotransferase 22 IU/L (14-36); BUN Creatinine Ratio 32.4 (6-22); Bilirubin Total 0.5 mg/dL (0.2-1.3); Blood Urea Nitrogen 22 mg/dL (7-17); Carbon Dioxide 34 mmol/L (22-32); Chloride 98 mmol/L (98-107); Estimated Glomerular Filt Rate > 60 mL/min (>60); Globulin 2.5 g/dL (1.7-4.1); Glucose 84 mg/dL (80-110); HEMOLYSIS < 15 (0-50); Sodium 136 mmol/L (137-145); Total Protein 5.9 g/dL (6.3-8.2)
[2023-10-15] MEDS: IPRATROPIUM 0.5 MG/2.5 ML NEB INH ×4 (09:21→20:32)
[2023-10-15] MEDS: CALCIUM CARBONATE 500 MG TAB 1000 MG PO (09:50)
--- NOTE | 2023-10-15 15:18 | CM.DANOTE ---
Patient is an 83 yo female who was admitted INPT Status on 10/14/23 for Acute Hypoxic resp Failure. Per MD, pt with hx of prior pneumonectomy in 2007 from lung CA and has CHF and AFIB. PCP: Rosio Puckett Payer: TERENCE/Stephon Reviewed chart, pt discussed in multidisciplinary rounds this morning.. SW met bedside w/patient and reports she has been active and indp, drives, still no home O2. Patient has hx of injury and her step daughter (a PT) had taken her home to recover at that time. 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 Pt confirms she feels much better and currently off oxygen and MD plans to make referral to the bass guitar teacher due to pt only having one lung. Pt confirms she was last admitted in August 2023 and for pelvic fx and discharged to [facility] for SNF and then went home with [facility] and currently open with [facility] and pt would like to resume HH at d/c. Pt does not anticipate any further needs at discharge at this time and preference is home. SW sent updated clinicals to [facility] to review and awaiting confirmation if Resumption or new Orders needed at d/c. Plan: SW to follow for likely discharge home with [facility]ume [facility] via friend POV when medically stable. BEKA Lund Discharge Planning/Care Management CM Discharge Assessment Start: 10/15/23 15:15 Freq: Status: Active Protocol: Document 10/15/23 15:15 BF (Rec: 10/15/23 15:18 BF [id number]) Discharge Planning Assessment Assigned Senior Data Integration Developer BEKA Egan Advance Directives? Yes: poa Advance Directives on File Yes History Provided By Patient,Medical Record Has Patient been admitted in last 30 No days? Comment last admit in August 2023 this year and went to [facility] after pelvic fx Prior Living Arrangements House Household Members none Type of transporation used prior to Drives own vehicle admit Independent with ADL's Yes Is patient alert and oriented? Yes Caregiver for Another No Community Services used prior to Physical Therapy,Occupational admission: Therapy,Home Health Nurse Comment Open with [facility] DME Already Rented / Owned Cane Patient/Family Preference Home with Home Health Comment [facility]ume [facility] Barriers to Discharge No Discharge Plan Home with Home Health Community Services Physical Therapy,Home Health Nurse Transportation Arrangement own vehicle in the parking lot and friends will help get her home Referrals Initiated Home Health Additional Comment Open with [facility] Whiteboard Updated in Patient Room with Yes name and ext. # of Senior Data Integration Developer Review Status In Process Please Provide Date Initial DC 10/15/23 Assessment Was Performed Next Review Type Continued Stay Review
--- NOTE | 2023-10-15 15:40 | PT.IIE ---
Current Diagnoses Hypoxemia (10/14/23) Surgical History (Last Reviewed 10/14/23 @ 16:37 by Jayla Fraser DO) Anesthesia History of bilateral salpingo-oophorectomy (BSO) History of breast augmentation (1992) History of hip replacement (01/2013) History of oophorectomy (1994) History of pneumonectomy (05/23/08) Status post hysterectomy (1994) Medical History (Last Reviewed 10/14/23 @ 16:37 by Jayla Fraser DO) Atrial fibrillation (2013) Atrial fibrillation with RVR COPD (chronic obstructive pulmonary disease) Easy bruisability History of cardioversion Hypertension Lung cancer (2006) Osteoarthritis Osteoporosis (2015) Ovarian cancer (1994) Raynauds syndrome (12/14/10) Uterine cancer (1994) Physical Therapy Inpatient Evaluation/Re-Eval M1 PT/OT-IP Prior Functional Status Start: 10/15/23 16:45 Freq: NEEDED Status: Active Protocol: Document 10/15/23 15:40 AB (Rec: 10/15/23 17:02 AB [id number]) Medical Review Prior Functional Status Medical History Reviewed Yes Communication able to make needs known Mobility and Gait pt stated that she was modified independent with all mobilities and ambulation without AD indoors and uses her hurrycane for outdoor mobility. stated that she has a 4WW that she also uses if needed. Prior Functional Level (Other details) pt was hospitalist august 14, 2023 s/p fall and had a B pelvic fx. pt d/c to snf . pt stated that she was doing well and has been home for ~ 1 month already. stated that she was doing well and to the point wherein she does not need a walker or cane to ambulate. currently stated that she will use her 4WW for safety and feels more comfortable using a 4WW for now Social History Household Members none Living Arrangements House Number of Floors (Floors) Two Floors Number of Stairs To Enter/Railing? pt stays on main level of the house 2 steps B rails to enter the house Home Environment High Toilet,Walk in Shower Home Equipment Front Wheel Walker,Four Wheel Walker,Shower Seat with Backrest,Hand Held Shower,Grab Bars Near Toilet,Grab Bars In Shower Additional Social History Comment has a community development coordinator that comes every 2 weeks to clean the house has neighbors and friends that has a meal train going on for her pt has a hurrycane M2 PT-IP Current Condition Start: 10/15/23 16:45 Freq: NEEDED Status: Active Protocol: Document 10/15/23 15:40 AB (Rec: 10/15/23 17:02 AB [id number]) Physical Therapy Current Condition Current Condition Evaluation Date 10/15/23 Treatment Diagnosis COPD; hypoxia; difficulty in walking Onset Date 10/14/23 M3 PT-IP Subjective Start: 10/15/23 16:45 Freq: NEEDED Status: Active Protocol: Document 10/15/23 15:40 AB (Rec: 10/15/23 17:02 AB [id number]) Subjective Physical Therapy Visit Type Type Initial Evaluation Visit Start Time 15:40 Visit Stop Time 16:25 Number of PATIENT RELATIONS LIAISON Visits 0 Physical Therapy Visit Comments Patient Comments agreeable to do PT M4 PT-IP Mobility and Gait Start: 10/15/23 16:45 Freq: NEEDED Status: Active Protocol: Document 10/15/23 15:40 AB (Rec: 10/15/23 17:02 AB [id number]) PT-Bed Mobility Assessment Supine to Sit Supine to Sit Independent Sit to Supine Sit to Supine Independent PT-Transfer Assessment Sit to and From Stand Sit to and from Stand Standby Assistance,1 Person Assistance,Use of Upper Extremities Equipment Transfer Assistive Device Gait Belt,4 Wheeled Walker Orthotic/Prosthetic Devices or Brace: No Comments Mobility Comments pt sitting on the chair and agreeable to do PT. obtained PLOF and home set up from pt. O2 sat at rest: 90-92%. educated pt on PLF and energy conservation. pt completed sit to stand SBA and ambulated in room using 4WW SBA to EOB. completed bed mobility mod I. pt agreed to do stairs. completed sit to stand from EOB SBA and ambulated ~ 250 ft using FWW SBA with standing rest breaks in between. pt sat on 4WW to rest before doing stair climbing. completed up/down steps using B rails SBA. pt rested again. ambulated back to room using 4WW SBA. (+) SOB but O2 sat checked during ambulation: 93% pt sat on the chair. call light and table placed within reach. informed pt regarding cardiopulmonary rehab recommendation and agreed. informed pt that no further PT needs at this time and to ambulate and mobilize with nursing staff as much as possible. pt agreed. Gait Assessment Gait Gait Assistance Required: Standby Assistance Distance (Feet) 250 Able to Maintain Weight Bearing Status Yes During Gait Assistive Devices Assistive Device Gait Belt,4 Wheeled Walker Orthotic/Prosthetic Devices or Brace: No Factors Limiting Gait Function Factors Limiting Gait Function Decreased Activity Tolerance, Poor Safety Awareness, Respiratory Distress Stair Climbing Assessment Evaluation Level of Assist On Stairs Standby Assistance Devices Stair Climbing Assistive Devices Left Railing,Right Railing Technique/Endurance Stair Climbing Direction Ascend and Descend Stair Climbing Technique Step to Step Number of Steps Climbed 3 Query Text: Stair Climbing Set # Repetitions (reps) 1 PT-Balance Assessment Sitting Balance and Reactions Static Sitting Balance Ability Normal Dynamic Sitting Balance Ability Good Standing Balance and Reactions Static Standing Balance Ability Good Dynamic Standing Balance Ability Fair Device Used 4WW M5 PT-IP Objective Assessments Start: 10/15/23 16:45 Freq: NEEDED Status: Active Protocol: Document 10/15/23 15:40 AB (Rec: 10/15/23 17:02 AB [id number]) Orientation Orientation/Cognition Level of Alertness Alert Orientation Name,Place,Situation Language Function Ability No Deficits Noted Safety Awareness Understands Safety Issues Memory Description No Deficits Noted Gross Range of Motion Lower Extremity ROM Assessment Within Functional Limits Strength Lower Extremity Strength Assessment Within Functional Limits Coordination Assessment Gross Coordination Gross Coordination WNL Sensation Assessment Sensation Gross Sensation WNL Muscle Tone Muscle Tone WNL Yes M6 PT-IP Treatment Start: 10/15/23 16:45 Freq: NEEDED Status: Active Protocol: Document 10/15/23 15:40 AB (Rec: 10/15/23 17:02 AB [id number]) Physical Therapy Treatment Education Education Provided Safety M7 PT-IP Assessment and Plan Start: 10/15/23 16:45 Freq: NEEDED Status: Active Protocol: Document 10/15/23 15:40 AB (Rec: 10/15/23 17:02 AB [id number]) PT Summary Assessment and Plan Potential Rehabilitation Potential Fair Status of Condition at Evaluation Stable Summary Impairments Pain,ROM,Strength,Balance, Coordination,Sensation,Tone, Cognition,Bed Mobility, Transfers,Gait,Activity Tolerance Assessment Summary pt is an 83 y/o F who presented with SOB. pt with hypoxia and exertional dyspnea . pt with dx COPD. pt is mod I with bed mobility, SBA for mobility using 4WW and able to ambulated ~ 250 ft SBA. O2 sat during ambulation ~ 93%. pt also completed stairclimbing SBA. No further PT needs at this time. pt will benefit from cardiopulmonary rehab to improve overall activity tolerance/endurance. Frequency of Treatment Frequency Of Treatment Discharge Precautions Other Precautions o2 Sat Recommendations To Nursing Amount of Assist Needed Standby Assistance Discharge Recommendations PT Discharge Recommendations Home with Assistance, Outpatient PT Other Discharge Recommendations outpt cardiopulmonary rehab Transportation Needs at Discharge Private Vehicle
[2023-10-15] MEDS: ATORVASTATIN 20 MG TABLET 10 MG PO (21:02)
[2023-10-16 03:47] VITALS: BP 140/59; PULSE 73; RESP 20; TEMP 36.4; O2SAT 88
--- NOTE | 2023-10-16 05:02 | PC.NURSE ---
Patient slept on and off overnight, did not complain of shortness of breath while in bed and when up and ambulating to the bathroom, did not use oxygen throughout the night.
[2023-10-16] MEDS: carvediloL 3.125 MG TABLET PO (08:57)
[2023-10-16] MEDS: ENOXAPARIN 40 MG/0.4 ML SYRINGE SUBCUT (08:57)
[2023-10-16] MEDS: CHOLECALCIFEROL (VITAMIN D3) 1,000 UNIT TABLET 3000 UNIT PO (08:57)
[2023-10-16] MEDS: AMLODIPINE 5 MG TABLET 2.5 MG PO (08:58)
[2023-10-16] MEDS: ASPIRIN EC 81 MG TABLET PO (08:58)
[2023-10-16] MEDS: MULTIVITAMIN 1 TABLET 1 TAB PO (08:58)
[2023-10-16] MEDS: POTASSIUM CHLORIDE 20 MEQ TAB PO (08:58)
[2023-10-16] MEDS: AMIODARONE 200 MG TABLET PO (08:58)
[2023-10-16] MEDS: FUROSEMIDE 40 MG TABLET PO (09:00)
[2023-10-16] MEDS: CALCIUM CARBONATE 500 MG TAB 1000 MG PO (09:00)
[2023-10-16] MEDS: FERROUS SULFATE 325 MG TABLET PO (09:00)
--- NOTE | 2023-10-16 09:00 | PM.DS.1 ---
History of Present Illness History of Present Illness Date Patient Seen: 10/16/23 Chief complaint: SoB Narrative: Pt is an 83yo woman with COPD, atrial fibrillation, CHF, iron deficiency anemia, HTN, and hx of lung cancer s/p right pneumonectomy who presented with worsening exertional dyspnea. The pt was recently hospitalized with pelvic fracture, and discharged to a rehab facility. While at the facility, she did require overnight oxygen, however she was not discharged with any from the faciltiy to home on 09/17. Since being home, the pt notes worsening exertional dyspnea, that acutely worsened in the last several days. She states that when seated/laying down she does not feel very SOB but with any basic movement she gets very winded. She denies any chest pain, palpitations, wheezing, cough, fevers/chills, LE swelling. She has otherwise been feeling well. In the ED, the pt was noted to by hypoxic which responded to 1L O2 via NC. CXR and CTA were negative. Lab work was unrevealing. Discharge Providers Provider Date of admission: 10/14/23 18:12 Discharge Date: 10/16/23 Primary care physician: Rosio Puckett MD Consults: 10/15/23 08:36 Consult to Physical Therapy Evaluate & Treat Comment: Physician Instructions: Evaluate and Treat Discharge provider: Rosio Puckett MD Summary Hospital Course Discharge Diagnosis: 1) Hypoxia with exertional dyspnea 2) COPD 3) CHF 4) Atrial fibrillation 5) Iron deficiency anemia 6) HTN Hospital Course: The pt presented with worsening exertional dyspnea with significant hypoxia with ambulation. She had a negative work-up in the ED. She was initiated on albuterol while in the hospital with significant improvement in her oxygen levels. At the time of discharge, she was ambulating without difficulty the full length of the hallway without any desaturations. She will be discharged with an inhaler for PRN use at home, in addition to her usual controller medications. She does not require any home oxygen. Status at Discharge Cognitive/behavioral status at discharge: oriented Functional status at discharge: uses cane/walker Overall status at discharge: patient is back to baseline Exam Vital Signs (past 8 hours): - 10/16/23 03:47 Temperature 97.6 F Pulse Rate 73 Respiratory Rate 20 Blood Pressure 140/59 L Pulse Oximetry 88 L Oxygen Flow Rate 0 Fraction of Inspired Oxygen 21 SaO2/FiO2 Ratio 438 Oxygen Delivery Method Room Air Oxygen Flow Rate 0 Narrative Exam Narrative: Gen: NAD, sitting comfortably in bed, appears well CV: no murmurs Resp: clear to auscultation on the left, no lung sounds on the right Ext: no edema Objective Labs 10/16/23 11:35 10/15/23 05:50 Labs: Laboratory Results - last 24 hr 10/15/23 05:50 Sodium 136 L Potassium 4.0 Chloride 98 Carbon Dioxide 34 H BUN 22 H Creatinine 0.68 Estimated GFR > 60 BUN/Creatinine Ratio 32.4 H Glucose 84 Calcium 9.0 Total Bilirubin 0.5 AST 22 ALT 13 Alkaline Phosphatase 94 Total Protein 5.9 L Albumin 3.4 L Globulin 2.5 Albumin/Globulin Ratio 1.4 PFSH Medical History Easy bruisability History of cardioversion Raynauds syndrome (12/14/10) Atrial fibrillation with RVR COPD (chronic obstructive pulmonary disease) Uterine cancer (1994) Ovarian cancer (1994) Osteoporosis (2015) Osteoarthritis Atrial fibrillation (2013) Hypertension Lung cancer (2006) Surgical History Anesthesia History of pneumonectomy (05/23/08) History of oophorectomy (1994) History of hip replacement (01/2013) History of breast augmentation (1992) History of bilateral salpingo-oophorectomy (BSO) Status post hysterectomy (1994) Family History Father Hypertension Prostate cancer Grandfather Stroke Grandmother Diabetes mellitus Mother Diabetes mellitus, type II Hypertension Stroke Grandfather No problems noted. Grandmother No problems noted. Social History marital status: unmarried,single household members: none lives independently: Yes pets and animals: Yes education level: college occupational status: other Smoking Status: Former smoker Tobacco: How many years used: 19 second hand exposure: No alcohol intake: current substance use type: does not use Discharge Plan Discharge Plan Patient Disposition: Home Discharge orders & Medications Prescriptions: New albuterol sulfate 90 mcg/actuation HFA aerosol inhaler 2 puff inhalation Q4-6H PRN (Reason: shortness of breath or wheezing) Qty: 6.7 2RF Continued (DME) Disabled Parking See Rx Instructions .ROUTE .MEDSUPPLY Qty: 1 0RF Rx Instructions: I find this patient to be medically disabled and qualified for Permanent Disabled Parking as indicated, and signed, on the Accompanying Disabled Parking Application for Individuals tiotropium bromide 18 mcg capsule, w/inhalation device 1 cap inhalation DAILY Qty: 90 3RF Rx Instructions: puncture 1 cap using device; one dose = 2 inhalations furosemide 40 mg tablet 40 mg PO QAM Qty: 90 3RF atorvastatin 20 mg tablet 10 mg PO BEDTIME Qty: 45 0RF Rx Instructions: Needs labs prior to future refills calcium carbonate-vitamin D3 [Calcium 600 + D(3)] 600 mg(1,500mg) -200 unit Tablet 2 tab PO DAILY multivitamin with minerals Tablet 1 tab PO DAILY amiodarone 200 mg tablet 200 mg PO DAILY carvedilol 3.125 mg tablet 3.125 mg PO BID potassium chloride 20 mEq tablet extended release 20 meq PO DAILY amlodipine 2.5 mg Tablet 2.5 mg PO DAILY ferrous sulfate 325 mg (65 mg iron) tablet 325 mg PO Q OTHER DAY acetaminophen 325 mg Tablet 650 mg PO Q6H PRN (Reason: Fever/Mild Pain (1-3)) Qty: 90 0RF aspirin 81 mg capsule 81 mg PO DAILY Qty: 90 0RF Follow up/Referrals: Rosio Puckett MD [Primary Care Provider] - 10/30/23 10:00 am (Appt:10/29 @ 10:[address] Puckett please check in at 9:45 ) Diet/Activity/Treatments Diet: Diet as Tolerated and Regular Visit Report/Discharge Packet Instructions: DI for Shortness of Breath Stand Alone Forms: Patient Portal/API, Stroke Signs & Symptoms Discharge Data Primary Care Provider: Rosio Puckett Quality VTE Deep Vein Thrombosis/Pulmonary Embolism Present on Admission: No
[2023-10-16] MEDS: ALBUTEROL 1.25 MG/3 ML NEB (PEDIATRIC) INH (09:18)
[2023-10-16] MEDS: IPRATROPIUM 0.5 MG/2.5 ML NEB INH (09:18)
[2023-10-16 09:21] VITALS: PULSE 83; RESP 28; O2SAT 93
[2023-10-16 11:00] VITALS: BP 125/63; PULSE 82; RESP 14; TEMP 37.1; O2SAT 90
[2023-10-16 11:51] LABS: Add Manual Diff / Slide Review NO; Basophils Absolute Auto 0 /uL (0-100); Basophils Percent Auto 0.4 % (0-2); Eosinophils Absolute Auto 100 /uL (0-450); Eosinophils Percent Auto 1.5 % (2-4); Hematocrit 33.9 % (36-46); Hemoglobin 11.1 g/dL (12.0-16.0); Lymphocytes Absolute Auto 800 /uL (1100-4500); Lymphocytes Percent Auto 12.1 % (25-40); Mean Corpuscular HGB Conc 32.9 % (30-36); Mean Corpuscular Hemoglobin 29.7 PG (26-34); Mean Corpuscular Volume 90.3 fL (80-100); Monocytes Absolute Auto 700 /uL (0-900); Neutrophils Absolute Auto 5300 /uL (1500-7000); Platelet Count 298 X10^3/uL (150-400); Red Blood Cell Count 3.75 X10^6/uL (4.0-5.2); Red Cell Distribution Width 16.2 % (11.6-14.8)
--- NOTE | 2023-10-16 15:47 | CM.DPNOTE ---
DC Note Discharge home with close outpatient follow up. Patient is current with [facility], resumption orders shared with [facility]. GILMA Caldwell has updated [facility] that patient has discharged home today. [facility]
--- NOTE | 2023-10-16 17:43 | PC.NURSE ---
Discharge: Pt feels ready to d/c to home. Dr. kapoor in to see pt and gave discharge instructions. Discharge packet given and reviewed. Questions answered. Pt d/c to home via auto with dtr.
== END 2023-10-16 13:45 | disposition home health service (06) | DRG 206 ==
LOC: ED 14:50 → AC 18:36
PROVIDERS: Admitting Provider Family Medicine; Emergency Provider Emergency Medicine; PCP Family Medicine; Referring Provider Emergency Medicine; Visit Provider Family Medicine
DX: R09.02 Hypoxemia (principal); J44.9 Chronic obstructive pulmonary disease, unspecified; I50.9 Heart failure, unspecified; I11.0 Hypertensive heart disease with heart failure; I48.91 Unspecified atrial fibrillation; D50.9 Iron deficiency anemia, unspecified; R06.09 Other forms of dyspnea; Z87.891 Personal history of nicotine dependence; Z85.118 Personal history of other malignant neoplasm of bronchus and lung; Z90.2 Acquired absence of lung [part of]
CPT/HCPCS: 0241U; 36415; 71045; 71275; 80053; 83605; 83880; 84484; 85025; 85610; 93005; 93010; 94640; 94760; 94762; 97116; 97161; 99223; 99238; 99284; 99285; J1650; J7613; Q9967

== ENCOUNTER → 2023-10-30 10:27 | Outpatient (CLI) | payer MEDICARE, OTHER, SELFPAY ==
[2023-10-14 18:20] VITALS: BMI 19.0
--- NOTE | 2023-10-30 10:29 | DI.RAD.S_ITS ---
PROCEDURE: XR CHEST 2V INDICATIONS: SOB, mild hypoxia TECHNIQUE: 2 views of the chest were acquired. COMPARISON: [facility], CR, XR CHEST 1V, 10/14/2023, 13:12. FINDINGS: Surgical changes and devices: Remote right pneumonectomy. Lungs and pleura: Left lung grossly clear. Pulmonary venous congestion without dodie pulmonary edema. Mediastinum: Mediastinal structures are shifted into the right hemithorax post right pneumonectomy. Heart size cannot be evaluated on chest film. Bones and chest wall: No suspicious bony abnormalities. Soft tissues appear unremarkable. IMPRESSION: Remote right pneumonectomy. No gross left-sided infiltrates. Pulmonary venous congestion without dodie pulmonary edema. Dictated by: Og Davis M.D. on 10/30/2023 at 11:43 Approved by: Og Davis M.D. on 10/30/2023 at 11:46
[2023-10-30 15:46] LABS: Add Manual Diff / Slide Review NO; Basophils Absolute Auto 0 /uL (0-100); Basophils Percent Auto 0.5 % (0-2); Eosinophils Absolute Auto 100 /uL (0-450); Eosinophils Percent Auto 1.9 % (2-4); Hematocrit 34.7 % (36-46); Hemoglobin 11.4 g/dL (12.0-16.0); Lymphocytes Absolute Auto 900 /uL (1100-4500); Lymphocytes Percent Auto 12.6 % (25-40); Mean Corpuscular HGB Conc 32.7 % (30-36); Mean Corpuscular Hemoglobin 29.3 PG (26-34); Mean Corpuscular Volume 89.6 fL (80-100); Monocytes Absolute Auto 800 /uL (0-900); Monocytes Percent Auto 11.7 % (3-14); Neutrophils Absolute Auto 5200 /uL (1500-7000); Neutrophils Percent Auto 73.3 % (50-75); Platelet Count 334 X10^3/uL (150-400); Red Blood Cell Count 3.88 X10^6/uL (4.0-5.2); Red Cell Distribution Width 15.2 % (11.6-14.8); White Blood Cell Count 7.1 X10^3/uL (4.5-11.0)
[2023-10-30 16:14] LABS: Alanine Aminotransferase 18 IU/L (<35); Albumin 3.7 g/dL (3.5-5.0); Albumin Globulin Ratio 1.3 (1.0-2.8); Alkaline Phosphatase 87 U/L (38-126); Aspartate Aminotransferase 23 IU/L (14-36); BUN Creatinine Ratio 37.2 (6-22); Bilirubin Total 0.5 mg/dL (0.2-1.3); Blood Urea Nitrogen 29 mg/dL (7-17); Calcium 9.3 mg/dL (8.4-10.2); Carbon Dioxide 34 mmol/L (22-32); Chloride 92 mmol/L (98-107); Estimated Glomerular Filt Rate > 60 mL/min (>60); Globulin 2.8 g/dL (1.7-4.1); Glucose 101 mg/dL (80-110); HEMOLYSIS < 15 (0-50); Magnesium 2.2 mg/dL (1.6-2.3); Potassium 4.8 mmol/L (3.4-5.1); Sodium 132 mmol/L (137-145); Total Protein 6.5 g/dL (6.3-8.2)
[2023-10-30 16:21] LABS: NT-proBNP (BNP-Adult 18+) 1060 pg/mL (<450)
[2023-10-30 16:44] LABS: TSH w/ Reflex to FT4 1.85 uIU/mL (0.47-4.68)
== END ==
PROVIDERS: PCP Family Medicine; Referring Provider Family Medicine; Visit Provider Family Medicine
DX: J44.9 Chronic obstructive pulmonary disease, unspecified (principal); R06.02 Shortness of breath; I48.20 Chronic atrial fibrillation, unspecified; R09.89 Other specified symptoms and signs involving the circulatory and respiratory systems
CPT/HCPCS: 36415; 71046; 80053; 83735; 83880; 84443; 85025

== ENCOUNTER → 2023-11-04 08:05 | Outpatient (CLI) | payer MEDICARE, OTHER, SELFPAY ==
[2023-10-14 18:20] VITALS: BMI 19.0
--- NOTE | 2023-11-04 08:06 | DI.ECHO.S_ITS ---
[place] [facility] : : [address] : : [place] : : [id number] : : Phone: [phone] Echocardiogram Report + + :Name: ELIUD BENDER Study Date: 11/04/2023 Height: 59 in : :[facility] ReadingLocation: Weight: 99 lb : : Gender: Female BSA: 1.4 m2 : :: 1940 Age: 83 yrs BP: 177/83 mmHg: :Reason For Study: SHORTNESS OF BREATH : :Ordering Physician: RA, : :CASIE Performed By: Jani Gillis : :Referring: CASIE KNAPP : + + Interpretation Summary The study quality was technically difficult. The patient was in atrial fibrillation with heart rates between 58-84 bpm during the exam. Normal left ventricle size with ejection fraction 60-65%. Normal right ventricle size with mildly reduced right ventricular systolic function. Moderate tricuspid regurgitation. The right ventricular systolic pressure is estimated to be at least 67.1 mmHg based on an estimated right atrial pressure of 8 mm Hg. Comparison is made with the echocardiogram of 04/12/23, pulmonary pressure has increased. Procedure: A two-dimensional transthoracic echocardiogram with color flow and Doppler was performed. The study quality was technically difficult. Comparison is made with the echocardiogram of 04/12/23. The patient was in atrial fibrillation with heart rates between 58-84 bpm during the exam. Left Ventricle: The left ventricle is normal in size and wall thickness. The ejection fraction is estimated to be 60-65%. There are no focal wall motion abnormalities. Diastolic function could not be accurately assessed due to atrial fibrillation. Right Ventricle: The right ventricle is normal size. Right ventricular systolic function is mildly reduced. Atria: The left atrium is not well visualized. The left atrium grossly appears normal in size. Right atrium not well visualized. The right atrium grossly appears normal in size. The interatrial septum grossly appears intact with no obvious evidence for an atrial septal defect. Mitral Valve: The mitral valve is grossly normal. The mitral valve leaflets are mildly calcified. There is no mitral valve stenosis. There is no mitral regurgitation noted. Aortic Valve: The aortic valve is trileaflet. The aortic valve opens well. There is no aortic valve stenosis. There is trace aortic regurgitation. Tricuspid Valve: The tricuspid valve is not well visualized, but is grossly normal. There is no tricuspid stenosis. There is moderate tricuspid regurgitation. The right ventricular systolic pressure is estimated to be at least 67.1 mmHg based on an estimated right atrial pressure of 8 mm Hg. Pulmonic Valve: The pulmonic valve is not well visualized. There is no pulmonic valvular stenosis. There is a trace or physiologic amount of pulmonic regurgitation. Great Vessels: The aortic root is normal size. The dimensions of the ascending aorta are normal. The IVC is of normal diameter and collapses less than 50% with a sniff. This suggests a right atrial pressure of 8 mm Hg. Pericardium/ Pleura There is no pericardial effusion. There is no pleural effusion. MMode/2D Measurements & Calculations LVIDd: 4.4 cm LVOT diam: 1.8 cm LVIDs: 2.6 cm Ao root diam: 2.7 cm FS: 41.2 % asc Aorta Diam: 2.8 cm IVSd: 1.0 cm LVPWd: 0.92 cm LV bird. diameter/BSA (cm/m^2): 3.2 LV sys. diameter/BSA (cm/m^2): 1.9 LA A4 area: 14.9 cm2 RA long axis: 5.5 cm LA length (vol): 5.5 cm RA area: 12.0 cm2 RA vol: 22.5 ml RA : 16.4 ml/m2 IVC diam: 1.9 cm RVD1 (basal): 2.8 cm RVD2 (mid): 2.7 cm TAPSE: 0.77 cm Doppler Measurements & Calculations Ao V2 max: 146.8 cm/sec LVOT Max Kaiden: 65.9 cm/sec Ao V2 mean: 98.4 cm/sec LV V1 max P.7 mmHg Ao max P.6 mmHg LV V1 VTI: 14.7 cm Ao mean P.3 mmHg LUIS A(I,D): 1.1 cm2 Ao V2 VTI: 35.3 cm LUIS A(V,D): 1.2 cm2 sev ratio: 0.42 LUIS A indexed to BSA (cm^2/m^2): 0.78 MV E max kaiden: 81.7 cm/sec TR max kaiden: 384.2 cm/sec MV A max kaiden: 37.7 cm/sec TR max P.1 mmHg MV E/A: 2.2 PA V2 max: 87.3 cm/sec Med Peak E' Kaiden: 5.5 cm/sec PA V2 mean: 54.1 cm/sec E/E' med: 14.8 PA mean P.3 mmHg Lat Peak E' Kaiden: 5.5 cm/sec PA pr(Accel): 36.8 mmHg E/E' lat: 14.9 E/e' average: 14.9 MV dec time: 0.15 sec SV(LVOT): 37.9 ml Electronically signed by: Riley Argueta on Reading Physician:11/04/2023 01:16 PM
== END ==
LOC: ECHO 08:06
PROVIDERS: PCP Family Medicine; Referring Provider Family Medicine; Visit Provider Family Medicine
DX: I07.1 Rheumatic tricuspid insufficiency (principal); I48.91 Unspecified atrial fibrillation; R06.02 Shortness of breath
CPT/HCPCS: 93306

== ENCOUNTER → 2023-11-06 10:07 | Outpatient (CLI) | payer MEDICARE, OTHER, SELFPAY ==
[2023-10-14 18:20] VITALS: BMI 19.0
[2023-11-06 11:06] LABS: BUN Creatinine Ratio 36.1 (6-22); Blood Urea Nitrogen 30 mg/dL (7-17); Calcium 9.1 mg/dL (8.4-10.2); Carbon Dioxide 34 mmol/L (22-32); Chloride 94 mmol/L (98-107); Estimated Glomerular Filt Rate > 60 mL/min (>60); Glucose 97 mg/dL (80-110); HEMOLYSIS < 15 (0-50); Potassium 4.3 mmol/L (3.4-5.1); Sodium 134 mmol/L (137-145)
== END ==
PROVIDERS: PCP Family Medicine; Referring Provider Nurse Practitioner Family; Visit Provider Nurse Practitioner Family
DX: I48.0 Paroxysmal atrial fibrillation (principal)
CPT/HCPCS: 36415; 80048

== ENCOUNTER → 2023-11-13 09:20 | Outpatient (CLI) | payer MEDICARE, OTHER, SELFPAY ==
[2023-10-14 18:20] VITALS: BMI 19.0
== END ==
PROVIDERS: PCP Family Medicine; Referring Provider Internal Medicine Critical Care Medicine; Visit Provider Internal Medicine Critical Care Medicine
DX: R06.00 Dyspnea, unspecified (principal); Z87.891 Personal history of nicotine dependence; R94.2 Abnormal results of pulmonary function studies
CPT/HCPCS: 94060; 94726; 94729

== ENCOUNTER → 2023-11-26 10:49 | Outpatient (CLI) | payer MEDICARE, OTHER, SELFPAY ==
[2023-11-14 15:59] VITALS: BMI 19.0
[2023-11-26 12:50] LABS: Appearance Urine UA CLEAR; Bilirubin Urine UA NEGATIVE (NEGATIVE); Color Urine UA YELLOW; Glucose Urine UA NEGATIVE (Negative); Ketones Urine UA NEGATIVE (NEGATIVE); Leukocyte Esterase Urine UA 2+ (NEGATIVE); Nitrite Urine UA NEGATIVE (Negative); Occult Blood Urine UA NEGATIVE (Negative); Protein Urine UA NEGATIVE (Negative); Urobilinogen Urine UA 0.2 E.U./dL (0.2)
[2023-11-26 13:27] LABS: RBC Urine 0-1/HPF (0-5/HPF); Urine Volume 10mL (spun); WBC Urine 5-10/HPF (0-5/HPF); pH Urine UA 7.5 (4.5-8.0)
[2023-11-26 13:28] LABS: Bacteria Urine Few (2-10); Culture Indicated Urine Specimen Cultured; Squamous Epithelial Cell Urine 1-5 /HPF (0-5/HPF)
== END ==
PROVIDERS: PCP Family Medicine; Referring Provider Family Medicine; Visit Provider Family Medicine
DX: R30.0 Dysuria (principal)
CPT/HCPCS: 81001; 87077; 87086

== ENCOUNTER 2023-12-04 12:43 | Emergency (ER) | payer MEDICARE, OTHER, SELFPAY ==
[2023-11-14 15:59] VITALS: BMI 19.0
[2023-12-04 12:51] VITALS: BP 141/63; PULSE 55; RESP 16; TEMP 36.2; O2SAT 97; BMI 19.3
--- NOTE | 2023-12-04 13:15 | ED.HEATRA ---
HPI - Head Injury General Chief complaint: Head Injury Stated complaint: fall, head injury, no blood thinners Time Seen by Provider: 12/04/23 12:55 Mode of arrival: Family Vehicle History of Present Illness HPI Narrative: 83-year-old woman atrial fibrillation not anticoagulated, on amiodarone rate controlled, hypertension was setting up for [employer] and stepped backward tripped over a friend fell and hit the back of her head on the grass. She has a small contusion bleeding and comes in for further evaluation. As mentioned, she has no longer on anticoagulants. She had no loss of consciousness is complaining of no pain. Was able to get up by herself and has a dressing in place placed by medics Related Data Home Medications Medication Instructions Recorded Confirmed calcium carbonate 600 mg-vitamin 2 tab PO DAILY 06/24/18 10/31/23 D3 5 mcg (200 unit) tablet (Calcium 600 + D(3)) multivitamin with minerals 1 tab PO DAILY 06/24/18 10/31/23 amlodipine 2.5 mg tablet 2.5 mg PO DAILY 05/25/21 10/31/23 ferrous sulfate 325 mg (65 mg 325 mg PO Q OTHER DAY 01/09/23 10/31/23 iron) tablet amiodarone 200 mg tablet 200 mg PO DAILY 08/14/23 10/31/23 carvedilol 3.125 mg tablet 3.125 mg PO BID 08/14/23 10/31/23 potassium chloride 20 mEq 20 meq PO DAILY 08/14/23 10/31/23 tablet,extended release Previous Rx's Medication Instructions Recorded Disabled Parking #1 ea 07/03/22 tiotropium bromide 18 mcg capsule 1 cap inhalation DAILY #90 12/04/22 with inhalation device inhalations acetaminophen 325 mg tablet 650 mg (2 x 325 mg) PO Q6H PRN 04/12/23 Fever/Mild Pain (1-3) #90 tabs aspirin 81 mg capsule 81 mg PO DAILY #90 caps 04/12/23 furosemide 40 mg tablet 40 mg PO QAM #90 tabs 04/15/23 albuterol sulfate 90 mcg/actuation 2 puff inhalation Q4-6H PRN 10/16/23 aerosol inhaler shortness of breath or wheezing #6.7 grams budesonide 180 mcg/actuation 1 inh inhalation BID #2 ea 10/30/23 breath activated powder inhaler (Pulmicort Flexhaler) prednisone 20 mg tablet 20 mg PO DAILY #5 tabs 10/30/23 atorvastatin 20 mg tablet 10 mg (1/2 x 20 mg) PO BEDTIME #45 11/04/23 tabs Allergies Allergy/AdvReac Type Severity Reaction Status Date / Time No Known Drug Allergies Allergy Verified 12/04/23 12:53 Patient History Medical History Easy bruisability History of cardioversion Raynauds syndrome (12/14/10) Atrial fibrillation with RVR COPD (chronic obstructive pulmonary disease) Uterine cancer (1994) Ovarian cancer (1994) Osteoporosis (2015) Osteoarthritis Atrial fibrillation (2013) Hypertension Lung cancer (2006) Surgical History Anesthesia History of pneumonectomy (05/23/08) History of oophorectomy (1994) History of hip replacement (01/2013) History of breast augmentation (1992) History of bilateral salpingo-oophorectomy (BSO) Status post hysterectomy (1994) Family History Father Hypertension Prostate cancer Grandfather Stroke Grandmother Diabetes mellitus Mother Diabetes mellitus, type II Hypertension Stroke Grandfather No problems noted. Grandmother No problems noted. Social History marital status: unmarried,single household members: none lives independently: Yes pets and animals: Yes education level: college occupational status: other Smoking Status: Former smoker Tobacco: How many years used: 19 second hand exposure: No alcohol intake: current substance use type: does not use Smoking Status: Former smoker alcohol intake frequency: holidays/special occasions only Substance Use Type: does not use Exam Initial Vital Signs Initial Vital Signs: Vital Signs Temperature 97.1 F L 12/04/23 12:51 Pulse Rate 55 L 12/04/23 12:51 Respiratory Rate 16 12/04/23 12:51 Blood Pressure 141/63 H 12/04/23 12:51 Pulse Oximetry 97 12/04/23 12:51 Oxygen Delivery Method Room Air 12/04/23 12:51 General: Healthy appearing, in no acute distress. Able to give a complete and coherent history. HEENT: Moist mucous membranes, normal sclera with reactive pupils, she has hematoma to the occiput that is oozing slightly but no overt laceration. No significant skull tenderness with palpation Neck: No midline cervical spine tenderness Respiratory: Lungs are clear to auscultation, no wheezing no rales no rhonchi. Full and symmetrical air movement Cardiac: Regular rate and rhythm no murmurs no bruits Abdomen: Soft, Spine and pelvis: No tenderness along thoracic and lumbar spine, no pelvic ring pain Skin: Warm and dry, no rashes Neurologic: Grossly neurologically intact with no obvious asymmetries or abnormalities Extremities: No trauma, well perfused, she is able to walk without any pain Psych: Cooperative, appropriate insight and affect Course Vital Signs Vital signs: Vital Signs - 8 hr 12/04/23 12:51 Temperature 97.1 F L Pulse Rate 55 L Respiratory Rate 16 Blood Pressure 141/63 H Pulse Oximetry 97 Oxygen Delivery Method Room Air MDM - Head Injury MDM Narrative Medical decision making narrative: CC: Fall with hematoma the occiput Complicating co-morbidities: 83-year-old woman, not anticoagulated, atrial fibrillation, hypertension Data collected from: patient Differential considered: Hematoma, laceration, intracranial hemorrhage, cervical spine injury other sequelae of trauma Exam documented above, pertinent findings include: Alert and appropriate woman complaining of no pain whatsoever. There is a small hematoma that is oozing somewhat without significant laceration. Imaging studies independently reviewed: With shared decision-making, we discussed reasons for CT scan of both the head in the cervical spine and based on how she feels and her clinical exam we decided against ordering these studies Treatments: A use her hair to twist over the oozing area with hematoma and glued the hair together for hemostasis. No laceration repair was required Discussion: 83-year-old woman who tripped over a friend landed on the grass on the back of her head she has a hematoma that was oozing slightly. Using skin glue I have dealt with the bleeding issue. There is no overt laceration. With shared decision-making we opted to do no additional imaging. She was comfortable as she was walking out of the emergency department. Discharge Plan Departure Patient Disposition: Home Clinical Impression: Contusion of head Qualifiers: Encounter type: initial encounter Contusion of head detail: scalp Qualified Code(s): S00.03XA - Contusion of scalp, initial encounter Instructions: DI for Hematoma (Bruise) Activity Restrictions/Additional Instructions: Thank you for coming in today There was a small bruise on the back of your head that was still oozing blood slightly. Was not actually cutting you did not need stitches. I used some of your hair to hold the edges of the bruise together and then glued the hair into place to help control the bleeding. You can rinse your hair with water and you can use soap by tomorrow. When your brushing or combing your hair make sure that you do not catch that is small piece of glue. As you hair grows over the next 1-2 weeks, the glue will pull off and you can snip it out. If you find that you are getting worse or develop any new symptoms, please feel free to return to the emergency department for further evaluation. Prescriptions: No Action prednisone 20 mg tablet 20 mg PO DAILY Qty: 5 0RF (DME) Disabled Parking See Rx Instructions .ROUTE .MEDSUPPLY Qty: 1 0RF Rx Instructions: I find this patient to be medically disabled and qualified for Permanent Disabled Parking as indicated, and signed, on the Accompanying Disabled Parking Application for Individuals tiotropium bromide 18 mcg capsule, w/inhalation device 1 cap inhalation DAILY Qty: 90 3RF Rx Instructions: puncture 1 cap using device; one dose = 2 inhalations furosemide 40 mg tablet 40 mg PO QAM Qty: 90 3RF Pulmicort Flexhaler 180 mcg/actuation aerosol powdr breath activated 1 inh inhalation BID Qty: 2 3RF atorvastatin 20 mg tablet 10 mg PO BEDTIME Qty: 45 0RF calcium carbonate-vitamin D3 [Calcium 600 + D(3)] 600 mg(1,500mg) -200 unit Tablet 2 tab PO DAILY multivitamin with minerals Tablet 1 tab PO DAILY amiodarone 200 mg tablet 200 mg PO DAILY carvedilol 3.125 mg tablet 3.125 mg PO BID potassium chloride 20 mEq tablet extended release 20 meq PO DAILY amlodipine 2.5 mg Tablet 2.5 mg PO DAILY ferrous sulfate 325 mg (65 mg iron) tablet 325 mg PO Q OTHER DAY acetaminophen 325 mg Tablet 650 mg PO Q6H PRN (Reason: Fever/Mild Pain (1-3)) Qty: 90 0RF aspirin 81 mg capsule 81 mg PO DAILY Qty: 90 0RF albuterol sulfate 90 mcg/actuation HFA aerosol inhaler 2 puff inhalation Q4-6H PRN (Reason: shortness of breath or wheezing) Qty: 6.7 2RF Referrals: Rosio Puckett MD [Primary Care Provider] - Stand Alone Forms: Patient Portal/API
[2023-12-04 13:26] VITALS: BP 123/58; PULSE 59; RESP 14; O2SAT 93
== END 2023-12-04 13:28 | disposition home or self-care (01) ==
PROVIDERS: Emergency Provider Emergency Medicine; PCP Family Medicine
DX: S00.03XA Contusion of scalp, initial encounter (principal); W18.30XA Fall on same level, unspecified, initial encounter
CPT/HCPCS: 99281

== ENCOUNTER → 2023-12-06 13:37 | Outpatient (CLI) | payer MEDICARE, OTHER, SELFPAY ==
[2023-11-14 15:59] VITALS: BMI 19.0
[2023-12-06 15:25] LABS: Appearance Urine UA CLEAR; Bilirubin Urine UA NEGATIVE (NEGATIVE); Color Urine UA YELLOW; Glucose Urine UA NEGATIVE (Negative); Ketones Urine UA NEGATIVE (NEGATIVE); Leukocyte Esterase Urine UA 2+ (NEGATIVE); Nitrite Urine UA NEGATIVE (Negative); Occult Blood Urine UA NEGATIVE (Negative); Protein Urine UA NEGATIVE (Negative); Urobilinogen Urine UA 0.2 E.U./dL (0.2)
[2023-12-06 15:30] LABS: pH Urine UA 7.5 (4.5-8.0)
[2023-12-06 15:33] LABS: RBC Urine 0-1/HPF (0-5/HPF); Urine Volume 10mL (spun)
[2023-12-06 15:34] LABS: Bacteria Urine Few (2-10); Culture Indicated Urine Specimen Cultured; Squamous Epithelial Cell Urine 0-1 /HPF (0-5/HPF); WBC Urine 10-30/HPF (0-5/HPF)
== END ==
PROVIDERS: PCP Family Medicine; Referring Provider Family Medicine; Visit Provider Family Medicine
DX: R30.0 Dysuria (principal)
CPT/HCPCS: 81001; 87077; 87086; 87186

== ENCOUNTER → 2023-12-16 15:41 | Outpatient (CLI) | payer MEDICARE, OTHER, SELFPAY ==
[2023-11-14 15:59] VITALS: BMI 19.0
[2023-12-16 17:29] LABS: Appearance Urine UA CLEAR; Bilirubin Urine UA NEGATIVE (NEGATIVE); Color Urine UA YELLOW; Glucose Urine UA NEGATIVE (Negative); Ketones Urine UA NEGATIVE (NEGATIVE); Leukocyte Esterase Urine UA 1+ (NEGATIVE); Nitrite Urine UA POSITIVE (Negative); Occult Blood Urine UA NEGATIVE (Negative); Protein Urine UA NEGATIVE (Negative); Urobilinogen Urine UA 0.2 E.U./dL (0.2)
[2023-12-16 17:40] LABS: Bacteria Urine Many (>30); Culture Indicated Urine Specimen Cultured; RBC Urine 0-1/HPF (0-5/HPF); Squamous Epithelial Cell Urine 0-1 /HPF (0-5/HPF); Urine Volume 10mL (spun); WBC Urine 1-5/HPF (0-5/HPF)
== END ==
PROVIDERS: PCP Family Medicine; Referring Provider Family Medicine; Visit Provider Family Medicine
DX: R30.0 Dysuria (principal)
CPT/HCPCS: 81001; 87077; 87086; 87186

== ENCOUNTER → 2023-12-18 12:24 | Outpatient (CLI) | payer MEDICARE, OTHER, SELFPAY ==
[2023-11-14 15:59] VITALS: BMI 19.0
[2023-12-18 14:27] LABS: BUN Creatinine Ratio 35.1 (6-22); Blood Urea Nitrogen 26 mg/dL (7-17); Calcium 9.3 mg/dL (8.4-10.2); Carbon Dioxide 37 mmol/L (22-32); Chloride 96 mmol/L (98-107); Estimated Glomerular Filt Rate > 60 mL/min (>60); Glucose 74 mg/dL (80-110); HEMOLYSIS < 15 (0-50); Sodium 135 mmol/L (137-145)
[2023-12-18 14:35] LABS: NT-proBNP (BNP-Adult 18+) 1990 pg/mL (<450)
== END ==
PROVIDERS: PCP Family Medicine; Referring Provider Nurse Practitioner Family; Visit Provider Nurse Practitioner Family
DX: I42.5 Other restrictive cardiomyopathy (principal); I48.0 Paroxysmal atrial fibrillation; I10 Essential (primary) hypertension; I42.9 Cardiomyopathy, unspecified
CPT/HCPCS: 36415; 80048; 83880

== ENCOUNTER → 2024-01-04 11:34 | Outpatient (CLI) | payer MEDICARE, OTHER, SELFPAY ==
[2023-11-14 15:59] VITALS: BMI 19.0
[2024-01-04 12:06] LABS: Appearance Urine UA CLEAR; Bilirubin Urine UA NEGATIVE (NEGATIVE); Color Urine UA YELLOW; Glucose Urine UA NEGATIVE (Negative); Ketones Urine UA NEGATIVE (NEGATIVE); Leukocyte Esterase Urine UA 1+ (NEGATIVE); Nitrite Urine UA NEGATIVE (Negative); Occult Blood Urine UA NEGATIVE (Negative); Protein Urine UA NEGATIVE (Negative); Specific Gravity Urine UA <=1.005 (1.000-1.035); Urobilinogen Urine UA 0.2 E.U./dL (0.2)
[2024-01-04 12:12] LABS: Bacteria Urine Occasional (0-1); RBC Urine None Seen (0-5/HPF); Squamous Epithelial Cell Urine None Seen (0-5/HPF); Urine Volume 10mL (spun); WBC Urine 1-5/HPF (0-5/HPF); pH Urine UA 6.5 (4.5-8.0)
[2024-01-04 12:13] LABS: Amorphous Sediment Urine 2+; Culture Indicated Urine Specimen Cultured
== END ==
PROVIDERS: PCP Family Medicine; Referring Provider Family Medicine; Visit Provider Family Medicine
DX: N39.0 Urinary tract infection, site not specified (principal)
CPT/HCPCS: 81001; 87077; 87086; 87186

== ENCOUNTER → 2024-01-16 09:50 | Outpatient (CLI) | payer MEDICARE, OTHER, SELFPAY ==
[2023-11-14 15:59] VITALS: BMI 19.0
--- NOTE | 2024-01-17 07:19 | DI.NM.S_ITS ---
DATE OF SERVICE: 01/15/2024 PHARMACOLOGICAL PERFUSION STUDY INDICATIONS: Shortness of breath, paroxysmal atrial fibrillation. RADIOPHARMACEUTICAL: 24.7 millicuries technetium-99m Myoview IV was injected at stress and 7.0 millicurie technetium-99m Myoview IV was injected at rest. CARDIAC STRESS: The patient underwent IV Lexiscan perfusion study under the supervision of an attending staff as per standard protocol. The patient remained hemodynamically stable. Baseline rhythm, likely atrial tachycardia. Blood pressure 100/60. Heart rate about 111 beats per minute. The patient has less than [address] elevation in inferolateral leads with poor R-wave progression and small Q-waves. During stress, no new convincing ischemic changes. Frequent PVCs as well as PACs. No significant worsening of ST changes. RAW DATA: There is adequate myocardial uptake. Increased subdiaphragmatic activity. GATED STUDY: Stress LV ejection fraction 83% without any obvious wall motion abnormalities. MYOCARDIAL PERFUSION SCAN: Stress supine and resting supine images were compared to each other. This is a normal myocardial perfusion. CONCLUSION: This is a normal myocardial perfusion with preserved left ventricular function. Overall, low-risk study. Baseline rhythm appears to be atrial tachycardia with nonspecific ST-T changes. The patient had perfusion study in 2019. At that time, the patient has normal myocardial perfusion as well. Overall, low-risk study. Cecille Toledo - WINNIE/yara/BON doc#: [id number]/job#: [id number] dd: 01/16/2024 16:21:00 dt: 01/16/2024 18:48:00 DICTATING MD/COPIES TO: Ellie Hayes MD COPIES MNE: AGUSTIN;
== END ==
PROVIDERS: PCP Family Medicine; Referring Provider Nurse Practitioner Family; Visit Provider Nurse Practitioner Family
DX: I48.0 Paroxysmal atrial fibrillation (principal); I42.9 Cardiomyopathy, unspecified
CPT/HCPCS: 78452; 93017; A9502; J2785

== ENCOUNTER → 2024-02-01 11:37 | Outpatient (CLI) | payer MEDICARE, OTHER, SELFPAY ==
[2023-11-14 15:59] VITALS: BMI 19.0
[2024-02-01 13:24] LABS: Appearance Urine UA CLEAR; Bilirubin Urine UA NEGATIVE (NEGATIVE); Color Urine UA YELLOW; Glucose Urine UA NEGATIVE (Negative); Ketones Urine UA NEGATIVE (NEGATIVE); Leukocyte Esterase Urine UA 1+ (NEGATIVE); Nitrite Urine UA NEGATIVE (Negative); Occult Blood Urine UA NEGATIVE (Negative); Protein Urine UA NEGATIVE (Negative); Urobilinogen Urine UA 0.2 E.U./dL (0.2)
[2024-02-01 14:06] LABS: Amorphous Sediment Urine 1+; Bacteria Urine Many (>30); Culture Indicated Urine Specimen Cultured; RBC Urine 0-1/HPF (0-5/HPF); Squamous Epithelial Cell Urine 0-1 /HPF (0-5/HPF); Urine Volume 10mL (spun); WBC Urine 1-5/HPF (0-5/HPF)
== END ==
PROVIDERS: PCP Family Medicine; Referring Provider Family Medicine; Visit Provider Family Medicine
DX: R30.0 Dysuria (principal)
CPT/HCPCS: 81001; 87077; 87086; 87186

== ENCOUNTER → 2024-02-21 11:53 | Outpatient (CLI) | payer MEDICARE, OTHER, SELFPAY ==
[2023-11-14 15:59] VITALS: BMI 19.0
--- NOTE | 2024-02-21 11:54 | DI.RAD.S_ITS ---
PROCEDURE: XR SHOULDER LT MIN 2V INDICATIONS: pain TECHNIQUE: 3 views of the shoulder were acquired. COMPARISON: [facility], CR, XR SHOULDER RT MIN 2V, 02/21/2024, 12:04. FINDINGS: Bones: Severe left glenohumeral joint osteoarthritis with [id number], worse than on the right. No fractures or dislocations. No suspicious bony lesions. Visualized ribs appear intact. Soft tissues: No suspicious soft tissue calcifications. Postsurgical changes from right lung excision. IMPRESSION: Severe left glenohumeral joint osteoarthritis with [id number]. Dictated by: Bry Willett M.D. on 02/21/2024 at 15:17 Approved by: Bry Willett M.D. on 02/21/2024 at 15:18
--- NOTE | 2024-02-21 11:54 | DI.RAD.S_ITS ---
PROCEDURE: XR SHOULDER RT MIN 2V INDICATIONS: pain TECHNIQUE: 3 views of the shoulder were acquired. COMPARISON: [facility], CT, CT ANGIO CHEST PE PROTOCOL, 10/14/2023, 16:52. FINDINGS: Bones: No fractures or dislocations. Severe right glenohumeral joint osteoarthritis. No suspicious bony lesions. Visualized ribs appear intact. Degenerative changes at the greater tuberosity may represent rotator cuff degeneration. Soft tissues: No suspicious soft tissue calcifications. Postsurgical changes from right lung resection IMPRESSION: 1. Severe right glenohumeral joint osteoarthritis. 2. Findings suspicious for rotator cuff degeneration. Dictated by: Bry Willett M.D. on 02/21/2024 at 15:13 Approved by: Bry Willett M.D. on 02/21/2024 at 15:17
== END ==
PROVIDERS: PCP Family Medicine; Referring Provider Family Medicine; Visit Provider Family Medicine
DX: M19.011 Primary osteoarthritis, right shoulder (principal); M19.012 Primary osteoarthritis, left shoulder; M25.519 Pain in unspecified shoulder
CPT/HCPCS: 73030

== ENCOUNTER 2024-02-26 14:15 | Outpatient (RCR) | payer MEDICARE, OTHER, SELFPAY ==
[2023-10-14 18:20] VITALS: BMI 19.0
[2023-11-14 15:59] VITALS: BMI 19.0
== END 2024-02-26 16:15 ==
LOC: PUL 14:15
PROVIDERS: PCP Family Medicine; Referring Provider Internal Medicine Critical Care Medicine; Visit Provider Internal Medicine Critical Care Medicine
DX: J44.9 Chronic obstructive pulmonary disease, unspecified (principal)
CPT/HCPCS: 94626

== ENCOUNTER → 2024-03-02 12:13 | Outpatient (CLI) | payer MEDICARE, OTHER, SELFPAY ==
[2023-11-14 15:59] VITALS: BMI 19.0
[2024-03-02 13:07] LABS: Appearance Urine UA CLEAR; Bilirubin Urine UA NEGATIVE (NEGATIVE); Color Urine UA YELLOW; Glucose Urine UA NEGATIVE (Negative); Ketones Urine UA NEGATIVE (NEGATIVE); Leukocyte Esterase Urine UA NEGATIVE (NEGATIVE); Nitrite Urine UA NEGATIVE (Negative); Occult Blood Urine UA NEGATIVE (Negative); Protein Urine UA NEGATIVE (Negative); Urobilinogen Urine UA 0.2 E.U./dL (0.2)
[2024-03-02 13:23] LABS: Bacteria Urine Occasional (0-1); RBC Urine 0-1/HPF (0-5/HPF); Squamous Epithelial Cell Urine 0-1 /HPF (0-5/HPF); Urine Volume 10mL (spun); WBC Urine 0-1/HPF (0-5/HPF)
== END ==
LOC: LAB 12:14
PROVIDERS: Family Provider Family Medicine; PCP Family Medicine; Referring Provider Family Medicine; Visit Provider Family Medicine
DX: N39.0 Urinary tract infection, site not specified (principal)
CPT/HCPCS: 81001; 87086

== ENCOUNTER 2024-05-21 13:45 | Outpatient (RCR) | payer MEDICARE, OTHER, SELFPAY ==
[2023-11-14 15:59] VITALS: BMI 19.0
--- NOTE | 2024-03-19 13:47 | PT.OPPOC ---
Physical, Occupational & Speech Therapy At [facility] Current Diagnoses Pain in right shoulder (03/19/24) Pain in left shoulder (03/19/24) Abnormal posture (03/19/24) Weakness (03/19/24) Visit Care Team Role Provider Type Rosio Puckett MD Attending Provider Physician Family Provider Primary Care Provider Referring Provider Specialty: Family Practice Address: [address] [place] [address], [facility] [place], [facility] Email: [email or web address] Plan Of Care PT-OP-B Current Condition Start: 03/19/24 13:47 Freq: Status: Active Protocol: Document 03/19/24 13:47 SAK (Rec: 03/19/24 14:33 [facility] [id number]) Current Condition History of Current Condition Onset Date 1+ yea Current Complaints bilateral shoulder pain History of Current Condition Several bad falls over the past year, but shoulders hurting before that. Most recently fell while doing balance exercises at home fractured pelvis last summer. Used a walker and cane, now uses hurry cane. Shoulder pain gradually worsening to the point she can't reach overhead or behind her back. Just got hearing aides and having difficulty putting in. Lays on back to sleep. Has to use oxygen at night. Couldn't do anything with her arms at cardiac rehab. For exercise patient doing SAFE exercise program, maintenance cardiac rehab (likes rowing machine the best) Prior Treatments and Tests no treatment. x-ray showed severe OA. Current Functional Impairments (Reported) Functional Limitations- ADL's painful and limited ROM PT-OP-T Assessment and Plan Start: 03/19/24 13:47 Freq: Status: Active Protocol: Document 03/19/24 13:47 SAK (Rec: 03/19/24 14:33 [facility] [id number]) Physical Therapy Assessment Evaluation Complexity Number of Personal Factors/Comorbidities 1-2 Number of Body Systems Impaired 3 Clinical Presentation at Evaluation Evolving Other Concerns Fall Risk high` Barriers to Rehabilitation osteoporosis, chronicity Goals 4 Impairment Quickdash UE disability index score 47% Short Term Goal (STG) decrease score to no greater than 37% as measure of improved shoulder function STG Duration 04/19/24 Digital Research Analyst Goal (LTG) decrease score to no greater than 25% as measure of improved shoulder function LTG Duration 06/17/24 3 Impairment painful driving Snf Goal (LTG) Able to drive with minimal to no shoulder pain. LTG Duration 06/17/24 2 Impairment weakness and decreased shoulder ROM Short Term Goal (STG) Patient to be instructed in HEP for purposes of ROM and strengthening bilateral shoulders STG Duration 04/19/24 Snf Goal (LTG) improve strength of shoulders to at least 4+/5 for improved function bilateral shoulders LTG Duration 06/17/24 1 Impairment unable to reach high enough for purposes of putting hearing aids in Digital Research Analyst Goal (LTG) Improve shoulder function sufficient to allow patient to put in hearing aids with ease LTG Duration 06/17/24 Assessment Summary Assessment Patient presents to PT withgradually worsening function-limiting pain bilateral shoulders. Patient has history of multiple falls but reports shoulders were hurting before that. x-ray showed severe arthritis. Patient reports she is unable to reach overhead or behind her back due to pain, also unable to sleep on her side and is having difficulty with driving as well as putting in hearing aids that she just obtained today. Signs and symptoms consistent with arthritis diagnosis with moderate crepitus pradeep shoulders and limited ROM and strength. She has moderate postural dysfunction with forward head, rounded shoulders. Feel she would benefit from PT to help her decrease her pain, improve her ROM, strength, and function of pradeep UE's. POC was discussed and she was in agreement. Physical Therapy Plan Frequency and Duration Frequency of Treatment 2x/Week Duration of treatment (weeks) 8 Plan of Care Start Date 03/19/24 Plan of Care End Date 05/17/24 Therapeutic Interventions Therapeutic Interventions Home Exercise Program,Manual Therapy,Patient/Caregiver Education,Self-Care/Home Management,Soft Tissue Mobilization,Taping, Therapeutic Activities, Therapeutic Exercises Modalities Cold Pack/Ice Massage,Electric Stimulation,Hot Packs, Infrared Therapy,Ultrasound Next Visit Focus/Plan Next Note Type Treatment Note Next Visit Plan Review HEP, gentle ROM, strengthening, postural correction exercises. Modalities and manual therapy PRN. Plan of Care Dates Plan of Care Start Date 03/19/24 Plan of Care End Date 05/17/24 Electronically Signed by: Janae Chen PT 03/24/24 [id number] If you are in agreement with this Plan of Care, please return a signed and dated copy. I have reviewed this Plan of Care and certify that the skilled therapy services above are required to meet the patient?s needs. Physician Signature Date Printed Name and Credentials Clinical Instructor Signature Printed Name and Credentials
--- NOTE | 2024-03-19 13:47 | PT.OIE ---
Current Diagnoses Pain in right shoulder (03/19/24) Pain in left shoulder (03/19/24) Abnormal posture (03/19/24) Weakness (03/19/24) Past Medical History (Last Reviewed 10/14/23 @ 16:37 by Jayla Fraser DO) Atrial fibrillation (2013) Atrial fibrillation with RVR COPD (chronic obstructive pulmonary disease) Easy bruisability History of cardioversion Hypertension Lung cancer (2006) Osteoarthritis Osteoporosis (2015) Ovarian cancer (1994) Raynauds syndrome (12/14/10) Uterine cancer (1994) Past Surgical History (Last Reviewed 10/14/23 @ 16:37 by Jayla Fraser DO) Anesthesia History of bilateral salpingo-oophorectomy (BSO) History of breast augmentation (1992) History of hip replacement (01/2013) History of oophorectomy (1994) History of pneumonectomy (05/23/08) Status post hysterectomy (1994) Visit Care Team Role Provider Type Rosio Puckett MD Attending Provider Physician Family Provider Primary Care Provider Referring Provider Specialty: [facility] Address: [address] [place] [address] Email: [email or web address] Physical Therapy Initial Evaluation PT-OP-A Visit Information Start: 03/19/24 13:47 Freq: Status: Active Protocol: Document 03/19/24 13:47 SAK (Rec: 03/19/24 14:33 SAK [id number]) Out-Patient Physical Therapy Visit Information Visit Information Visit Type Initial Evaluation Visit Start Time 13:47 Visit Stop Time 14:40 Visit Number 1 Evaluation Information Evaluation Date 03/19/24 Precautions Precautions osteoporosis PT-OP-B Current Condition Start: 03/19/24 13:47 Freq: Status: Active Protocol: Document 03/19/24 13:47 SAK (Rec: 03/19/24 14:33 SAK [id number]) Current Condition History of Current Condition Onset Date 1+ yea Current Complaints bilateral shoulder pain History of Current Condition Several bad falls over the past year, but shoulders hurting before that. Most recently fell while doing balance exercises at home fractured pelvis last summer. Used a walker and cane, now uses hurry cane. Shoulder pain gradually worsening to the point she can't reach overhead or behind her back. Just got hearing aides and having difficulty putting in. Lays on back to sleep. Has to use oxygen at night. Couldn't do anything with her arms at cardiac rehab. For exercise patient doing SAFE exercise program, maintenance cardiac rehab (likes rowing machine the best) Prior Treatments and Tests no treatment. x-ray showed severe OA. Current Functional Impairments (Reported) Functional Limitations- ADL's painful and limited ROM PT-OP-C Subjective Start: 03/19/24 13:47 Freq: Status: Active Protocol: Document 03/19/24 13:47 [facility] (Rec: 03/24/24 08:43 [facility] [id number]) Patient Questionnaires Quick Dash- Upper Extremity Quick Dash UE Score 46% OP-PT Pain Assessment Pain Assessment Grid Paper Pain Assessment Grid Completed Yes Location pradeep shld Intensity 8 PT-OP-F Manual Assessment Start: 03/19/24 13:47 Freq: Status: Active Protocol: Document 03/19/24 13:47 [facility] (Rec: 03/24/24 08:43 [facility] [id number]) Manual Assessments Soft Tissue Assessment Soft Tissue Mobility Assessment tightness pradeep UE, LS, pecs scalenes Joint Mobility Assessment Joint Mobility Assessment moderate to severe crepitus bilateral shoulders, gross decrease in joint mobility PT-OP-K Range of Motion Start: 03/19/24 13:47 Freq: Status: Active Protocol: Document 03/19/24 13:47 [facility] (Rec: 03/19/24 14:33 [facility] [id number]) Cervical Spine Range of Motion Cervical Spine Active Comments mod decrease all motions Shoulder Goniometric Range of Motion Shoulder Left Flexion 122 Extension 10 Abduction 95 External Rotation at 0 degrees Abduction 10 Internal Rotation Behind Back (text) L4 Right Flexion 168 Extension 15 Abduction 170 External Rotation at 0 degrees Abduction 30 Internal Rotation Behind Back (text) T10 Elbow/Forearm Range of Motion Elbow/Forearm pradeep Elbow/Forearm ROM WFL Yes PT-OP-M Strength Start: 03/19/24 13:47 Freq: Status: Active Protocol: Document 03/19/24 13:47 [facility] (Rec: 03/19/24 14:33 [facility] [id number]) Shoulder Strength Shoulder Manual Muscle Testing pradeep Flexion 3- Fair- Extension 3- Fair- Abduction (C5) 3- Fair- Adduction 3+ Fair+ External Rotation 3- Fair- Internal Rotation 3- Fair- Elbow/Forearm Strength Elbow and Forearm Manual Muscle Testing Left Flexion (C6) 4+ Good+ Extension (C7) 4- Good- Right Flexion (C6) 5 Normal Extension (C7) 5 Normal PT-OP-Q Treatments Start: 03/19/24 13:47 Freq: Status: Active Protocol: Document 03/19/24 13:47 SAK (Rec: 03/19/24 17:24 [facility] [id number]) Self-Care/Home Management Treatment Education Patient Education Home Exercise Program,Pain Management Other Education issued written HEP PT-OP-R Modalities Start: 03/19/24 13:47 Freq: Status: Active Protocol: Document 03/19/24 13:47 SAK (Rec: 03/19/24 17:24 SAK [id number]) Hot Pack/Cold Pack Treatment Hot Pack Location pradeep shoulders Patient Position Hooklying Patient Tolerance Good PT-OP-T Assessment and Plan Start: 03/19/24 13:47 Freq: Status: Active Protocol: Document 03/19/24 13:47 SAK (Rec: 03/19/24 14:33 [facility] [id number]) Physical Therapy Assessment Evaluation Complexity Number of Personal Factors/Comorbidities 1-2 Number of Body Systems Impaired 3 Clinical Presentation at Evaluation Evolving Other Concerns Fall Risk high` Barriers to Rehabilitation osteoporosis, chronicity Goals 4 Impairment Quickdash UE disability index score 47% Short Term Goal (STG) decrease score to no greater than 37% as measure of improved shoulder function STG Duration 04/19/24 [facility] Goal (LTG) decrease score to no greater than 25% as measure of improved shoulder function LTG Duration 06/17/24 3 Impairment painful driving [facility] Goal (LTG) Able to drive with minimal to no shoulder pain. LTG Duration 06/17/24 2 Impairment weakness and decreased shoulder ROM Short Term Goal (STG) Patient to be instructed in HEP for purposes of ROM and strengthening bilateral shoulders STG Duration 04/19/24 Funeral Home Assistant Goal (LTG) improve strength of shoulders to at least 4+/5 for improved function bilateral shoulders LTG Duration 06/17/24 1 Impairment unable to reach high enough for purposes of putting hearing aids in [facility] Goal (LTG) Improve shoulder function sufficient to allow patient to put in hearing aids with ease LTG Duration 06/17/24 Assessment Summary Assessment Patient presents to PT withgradually worsening function-limiting pain bilateral shoulders. Patient has history of multiple falls but reports shoulders were hurting before that. x-ray showed severe arthritis. Patient reports she is unable to reach overhead or behind her back due to pain, also unable to sleep on her side and is having difficulty with driving as well as putting in hearing aids that she just obtained today. Signs and symptoms consistent with arthritis diagnosis with moderate crepitus pradeep shoulders and limited ROM and strength. She has moderate postural dysfunction with forward head, rounded shoulders. Feel she would benefit from PT to help her decrease her pain, improve her ROM, strength, and function of pradeep UE's. POC was discussed and she was in agreement. Physical Therapy Plan Frequency and Duration Frequency of Treatment 2x/Week Duration of treatment (weeks) 8 Plan of Care Start Date 03/19/24 Plan of Care End Date 05/17/24 Therapeutic Interventions Therapeutic Interventions Home Exercise Program,Manual Therapy,Patient/Caregiver Education,Self-Care/Home Management,Soft Tissue Mobilization,Taping, Therapeutic Activities, Therapeutic Exercises Modalities Cold Pack/Ice Massage,Electric Stimulation,Hot Packs, Infrared Therapy,Ultrasound Next Visit Focus/Plan Next Note Type Treatment Note Next Visit Plan Review HEP, gentle ROM, strengthening, postural correction exercises. Modalities and manual therapy PRN.
--- NOTE | 2024-03-27 12:13 | PT.OTN ---
Current Diagnoses Pain in right shoulder (03/27/24) Pain in left shoulder (03/27/24) Abnormal posture (03/27/24) Weakness (03/27/24) Physical Therapy Treatment Note PT-OP-A Visit Information Start: 03/19/24 13:47 Freq: Status: Active Protocol: Document 03/27/24 11:33 SP (Rec: 03/27/24 12:35 SP [id number]) Out-Patient Physical Therapy Visit Information Visit Information Visit Type Treatment Note Visit Start Time 11:33 Visit Stop Time 12:13 Visit Number 2 Number of DIRECTOR OF DIGITAL PLATFORMS Visits 1 Evaluation Information Evaluation Date 03/19/24 Precautions Precautions osteoporosis PT-OP-B Current Condition Start: 03/19/24 13:47 Freq: Status: Active Protocol: Document 03/19/24 13:47 SAK (Rec: 03/19/24 14:33 SAK [id number]) Current Condition History of Current Condition Onset Date 1+ yea Current Complaints bilateral shoulder pain History of Current Condition Several bad falls over the past year, but shoulders hurting before that. Most recently fell while doing balance exercises at home fractured pelvis last summer. Used a walker and cane, now uses hurry cane. Shoulder pain gradually worsening to the point she can't reach overhead or behind her back. Just got hearing aides and having difficulty putting in. Lays on back to sleep. Has to use oxygen at night. Couldn't do anything with her arms at cardiac rehab. For exercise patient doing SAFE exercise program, maintenance cardiac rehab (likes rowing machine the best) Prior Treatments and Tests no treatment. x-ray showed severe OA. Current Functional Impairments (Reported) Functional Limitations- ADL's painful and limited ROM PT-OP-C Subjective Start: 03/19/24 13:47 Freq: Status: Active Protocol: Document 03/27/24 11:33 SP (Rec: 03/27/24 12:35 SP [id number]) OP-PT Subjective Patient Comments Patient Comments Pt reports got a shot in L elbow after saw PT last. She states didn't know if is helping. Pt reports has Raynauds pink-purplish fingertips with cold weather and numb BUE. She states does a light online video work out class behind chair BLE seated to im pr PT-OP-F Manual Assessment Start: 03/19/24 13:47 Freq: Status: Active Protocol: Document 03/19/24 13:47 SAK (Rec: 03/24/24 08:43 SAK [id number]) Manual Assessments Soft Tissue Assessment Soft Tissue Mobility Assessment tightness pradeep UE, LS, pecs scalenes Joint Mobility Assessment Joint Mobility Assessment moderate to severe crepitus bilateral shoulders, gross decrease in joint mobility PT-OP-K Range of Motion Start: 03/19/24 13:47 Freq: Status: Active Protocol: Document 03/19/24 13:47 SAK (Rec: 03/19/24 14:33 SAK [id number]) Cervical Spine Range of Motion Cervical Spine Active Comments mod decrease all motions Shoulder Goniometric Range of Motion Shoulder Left Flexion 122 Extension 10 Abduction 95 External Rotation at 0 degrees Abduction 10 Internal Rotation Behind Back (text) L4 Right Flexion 168 Extension 15 Abduction 170 External Rotation at 0 degrees Abduction 30 Internal Rotation Behind Back (text) T10 Elbow/Forearm Range of Motion Elbow/Forearm pradeep Elbow/Forearm ROM WFL Yes PT-OP-M Strength Start: 03/19/24 13:47 Freq: Status: Active Protocol: Document 03/19/24 13:47 [facility] (Rec: 03/19/24 14:33 [facility] [id number]) Shoulder Strength Shoulder Manual Muscle Testing pradeep Flexion 3- Fair- Extension 3- Fair- Abduction (C5) 3- Fair- Adduction 3+ Fair+ External Rotation 3- Fair- Internal Rotation 3- Fair- Elbow/Forearm Strength Elbow and Forearm Manual Muscle Testing Left Flexion (C6) 4+ Good+ Extension (C7) 4- Good- Right Flexion (C6) 5 Normal Extension (C7) 5 Normal PT-OP-Q Treatments Start: 03/19/24 13:47 Freq: Status: Active Protocol: Document 03/27/24 11:33 SP (Rec: 03/27/24 12:35 SP [id number]) Therapeutic Exercises Supine Exercises FF Supine Exercise Name added to HEP /c HO Side bilateral Resistance dowel AAROM Reps/Minutes x10 reps Comments cued slow pnfree range serratus press Supine Exercise Name added to HEP /cHEP Side bilateral Resistance dowel Reps/Minutes x10 reps Comments 1 scap protraction/retraction cued slow control pnfree Sidelying Exercises shld ER Sidelying Exercise Name in PT Side left Reps/Minutes 3 reps Comments crepitus stopped. Standing Exercises table slide Standing Exercise Name review next tx Shld Isometric Standing Exercise Name review next tx sink stretch Standing Exercise Name added to HEP /c HO Side bilateral Resistance AAROM Equipment Used hands on TM bar Reps/Minutes 3 reps 10 SH Comments pnfree range for FF OH ROM support rows Standing Exercise Name added to HEP /c HO Side bilateral Resistance Tb #1 home yellow Reps/Minutes x10 Comments cued posture and Rhomboid Manual Therapy Treatment Consent Patient gave verbal consent for manual Yes treatment Soft Tissue Mobilization neck Body Location L UT, LS, suboccipital Mobilization Type Rolling Body Position R SL Comments gentle STMs L shld Body Location Rhomboid, pec, lat, infrasp, suprasp Mobilization Type Rolling Body Position R SL Comments gentle STMs Joint Mobilizations L scapulothoracic Comments adduction, depression, and tactile cues during AAROM ABD PT-OP-R Modalities Start: 03/19/24 13:47 Freq: Status: Active Protocol: Document 03/27/24 11:33 SP (Rec: 03/27/24 12:35 SP [id number]) Hot Pack/Cold Pack Treatment Hot Pack Location L shoulders (pradeep next) Patient Position Hooklying Patient Tolerance Good Comments 4 min before needed use restroom. PT-OP-T Assessment and Plan Start: 03/19/24 13:47 Freq: Status: Active Protocol: Document 03/27/24 11:33 SP (Rec: 03/27/24 12:35 SP [id number]) Physical Therapy Assessment Goals 4 Impairment Quickdash UE disability index score 47% Short Term Goal (STG) decrease score to no greater than 37% as measure of improved shoulder function STG Duration 04/19/24 [facility] Goal (LTG) decrease score to no greater than 25% as measure of improved shoulder function LTG Duration 06/17/24 3 Impairment painful driving [facility] Goal (LTG) Able to drive with minimal to no shoulder pain. LTG Duration 06/17/24 2 Impairment weakness and decreased shoulder ROM Short Term Goal (STG) Patient to be instructed in HEP for purposes of ROM and strengthening bilateral shoulders STG Duration 04/19/24 Deputy Sheriff Generalist/Bailiff Goal (LTG) improve strength of shoulders to at least 4+/5 for improved function bilateral shoulders LTG Duration 06/17/24 1 Impairment unable to reach high enough for purposes of putting hearing aids in Deputy Sheriff Generalist/Bailiff Goal (LTG) Improve shoulder function sufficient to allow patient to put in hearing aids with ease LTG Duration 06/17/24 Assessment Summary Assessment Pt good response to manual and MHP end tx. Continued ROM progression supine and light resisted rows standing today with no pain reported and education posture and rhomobid fac to help crepitus reducation and painfree range. Will review isometrics next tx. Pt stated felt good end tx, verbalized understanding arm swing gait. Physical Therapy Plan Frequency and Duration Frequency of Treatment 2x/Week Duration of treatment (weeks) 8 Plan of Care Start Date 03/19/24 Plan of Care End Date 05/17/24 Therapeutic Interventions Therapeutic Interventions Home Exercise Program,Manual Therapy,Patient/Caregiver Education,Self-Care/Home Management,Soft Tissue Mobilization,Taping, Therapeutic Activities, Therapeutic Exercises Modalities Cold Pack/Ice Massage,Electric Stimulation,Hot Packs, Infrared Therapy,Ultrasound Next Visit Focus/Plan Next Note Type Treatment Note Next Visit Plan Review HEP sink stretch, isometric, supine serratus press & FF dowel, rows POC: gentle ROM, strengthening , postural correction exercises. Modalities and manual therapy PRN.
--- NOTE | 2024-04-01 16:34 | PT.OTN ---
Current Diagnoses Pain in right shoulder (04/01/24) Pain in left shoulder (04/01/24) Abnormal posture (04/01/24) Weakness (04/01/24) Physical Therapy Treatment Note PT-OP-A Visit Information Start: 03/19/24 13:47 Freq: Status: Active Protocol: Document 04/01/24 13:04 SAK (Rec: 04/01/24 13:46 [facility] [id number]) Out-Patient Physical Therapy Visit Information Visit Information Visit Type Treatment Note Visit Start Time 13:00 Visit Stop Time 13:55 Visit Number 3 Number of STRUCTURAL DRAFTSMAN Visits 0 Evaluation Information Evaluation Date 03/19/24 Precautions Precautions osteoporosis PT-OP-B Current Condition Start: 03/19/24 13:47 Freq: Status: Active Protocol: Document 04/01/24 13:04 SAK (Rec: 04/01/24 13:46 [facility] [id number]) Current Condition History of Current Condition Onset Date 1+ yea Current Complaints bilateral shoulder pain History of Current Condition Several bad falls over the past year, but shoulders hurting before that. Most recently fell while doing balance exercises at home fractured pelvis last summer. Used a walker and cane, now uses hurry cane. Shoulder pain gradually worsening to the point she can't reach overhead or behind her back. Just got hearing aides and having difficulty putting in. Lays on back to sleep. Has to use oxygen at night. Couldn't do anything with her arms at cardiac rehab. For exercise patient doing SAFE exercise program, maintenance cardiac rehab (likes rowing machine the best) Prior Treatments and Tests no treatment. x-ray showed severe OA. PT-OP-C Subjective Start: 03/19/24 13:47 Freq: Status: Active Protocol: Document 04/01/24 13:04 SAK (Rec: 04/01/24 13:46 SAK [id number]) OP-PT Subjective Patient Comments Patient Comments Feels like the exercises are helping some. Shot in left shoulder not helpful. PT-OP-F Manual Assessment Start: 03/19/24 13:47 Freq: Status: Active Protocol: Document 03/19/24 13:47 SAK (Rec: 03/24/24 08:43 SAK [id number]) Manual Assessments Soft Tissue Assessment Soft Tissue Mobility Assessment tightness pradeep UE, LS, pecs scalenes Joint Mobility Assessment Joint Mobility Assessment moderate to severe crepitus bilateral shoulders, gross decrease in joint mobility PT-OP-K Range of Motion Start: 03/19/24 13:47 Freq: Status: Active Protocol: Document 03/19/24 13:47 [facility] (Rec: 03/19/24 14:33 [facility] [id number]) Cervical Spine Range of Motion Cervical Spine Active Comments mod decrease all motions Shoulder Goniometric Range of Motion Shoulder Left Flexion 122 Extension 10 Abduction 95 External Rotation at 0 degrees Abduction 10 Internal Rotation Behind Back (text) L4 Right Flexion 168 Extension 15 Abduction 170 External Rotation at 0 degrees Abduction 30 Internal Rotation Behind Back (text) T10 Elbow/Forearm Range of Motion Elbow/Forearm pradeep Elbow/Forearm ROM WFL Yes PT-OP-M Strength Start: 03/19/24 13:47 Freq: Status: Active Protocol: Document 03/19/24 13:47 [facility] (Rec: 03/19/24 14:33 [facility] [id number]) Shoulder Strength Shoulder Manual Muscle Testing pradeep Flexion 3- Fair- Extension 3- Fair- Abduction (C5) 3- Fair- Adduction 3+ Fair+ External Rotation 3- Fair- Internal Rotation 3- Fair- Elbow/Forearm Strength Elbow and Forearm Manual Muscle Testing Left Flexion (C6) 4+ Good+ Extension (C7) 4- Good- Right Flexion (C6) 5 Normal Extension (C7) 5 Normal PT-OP-Q Treatments Start: 03/19/24 13:47 Freq: Status: Active Protocol: Document 04/01/24 13:04 [facility] (Rec: 04/01/24 13:46 [facility] [id number]) Therapeutic Exercises Supine Exercises FF Side bilateral Resistance dowel AAROM Reps/Minutes x10 reps Comments cued slow pnfree range serratus press Side bilateral Resistance dowel Reps/Minutes x10 reps Comments 1 scap protraction/retraction cued slow control pnfree Sitting Exercises sh ER Equipment Used wand Reps/Minutes 10x 5 Comments ER to 25 deg pulleys Sitting Exercise Name flexion and scaption Reps/Minutes 10x Comments right shoulder flex to 128 degrees, left 110 deg, scaption 158 R 127 L Standing Exercises hor ab/ad Equipment Used counter, towel Reps/Minutes 10x Comments arm at approx 165 deg elevation table slide Equipment Used counter, towel Reps/Minutes 10x Shld Isometric Equipment Used towel, wall Reps/Minutes 5x Comments cues for correct alignment and submax pressure rows Standing Exercise Name added to HEP /c HO Side bilateral Resistance Tb #1 home yellow Reps/Minutes x10 Comments cued posture and Rhomboid Manual Therapy Treatment Soft Tissue Mobilization neck Body Location L UT, LS, suboccipital Mobilization Type Rolling Body Position R SL Comments gentle STMs L shld Body Location Rhomboid, pec, lat, infrasp, suprasp Mobilization Type Rolling Body Position R SL Comments gentle STMs Joint Mobilizations L scapulothoracic Comments adduction, depression, and tactile cues during AAROM ABD PT-OP-R Modalities Start: 03/19/24 13:47 Freq: Status: Active Protocol: Document 04/01/24 13:04 SAK (Rec: 04/01/24 13:46 [facility] [id number]) Hot Pack/Cold Pack Treatment Hot Pack Location L shoulder Patient Position Hooklying Patient Tolerance Good PT-OP-T Assessment and Plan Start: 03/19/24 13:47 Freq: Status: Active Protocol: Document 04/01/24 13:04 SAK (Rec: 04/01/24 13:46 [facility] [id number]) Physical Therapy Assessment Goals 4 Impairment Quickdash UE disability index score 47% Short Term Goal (STG) decrease score to no greater than 37% as measure of improved shoulder function STG Duration 04/19/24 Care Home Goal (LTG) decrease score to no greater than 25% as measure of improved shoulder function LTG Duration 06/17/24 3 Impairment painful driving [facility] Home Goal (LTG) Able to drive with minimal to no shoulder pain. LTG Duration 06/17/24 2 Impairment weakness and decreased shoulder ROM Short Term Goal (STG) Patient to be instructed in HEP for purposes of ROM and strengthening bilateral shoulders STG Duration 04/19/24 Exploration Engineer Goal (LTG) improve strength of shoulders to at least 4+/5 for improved function bilateral shoulders LTG Duration 06/17/24 1 Impairment unable to reach high enough for purposes of putting hearing aids in Care Home Goal (LTG) Improve shoulder function sufficient to allow patient to put in hearing aids with ease LTG Duration 06/17/24 Assessment Summary Assessment Good response to treatment with increase in shoulder elevation. Good rhomboid activation with row. REviewd isometric exercises with multiple corrections for alignment and performance; patient demonstrated improved understanding after instruction. Physical Therapy Plan Frequency and Duration Frequency of Treatment 2x/Week Duration of treatment (weeks) 8 Plan of Care Start Date 03/19/24 Plan of Care End Date 05/17/24 Therapeutic Interventions Therapeutic Interventions Home Exercise Program,Manual Therapy,Patient/Caregiver Education,Self-Care/Home Management,Soft Tissue Mobilization,Taping, Therapeutic Activities, Therapeutic Exercises Modalities Cold Pack/Ice Massage,Electric Stimulation,Hot Packs, Infrared Therapy,Ultrasound Next Visit Focus/Plan Next Note Type Treatment Note Next Visit Plan POC: continue gentle ROM, strengthening, postural correction exercises. Modalities and manual therapy PRN.
--- NOTE | 2024-04-03 13:53 | PT.OTN ---
Current Diagnoses Pain in right shoulder (04/03/24) Pain in left shoulder (04/03/24) Abnormal posture (04/03/24) Weakness (04/03/24) Physical Therapy Treatment Note PT-OP-A Visit Information Start: 03/19/24 13:47 Freq: Status: Active Protocol: Document 04/03/24 13:03 SP (Rec: 04/03/24 14:00 SP [id number]) Out-Patient Physical Therapy Visit Information Visit Information Visit Type Treatment Note Visit Start Time 13:03 Visit Stop Time 13:53 Visit Number 4 Number of BELT LOOP MACHINE OPERATOR Visits 1 Evaluation Information Evaluation Date 03/19/24 Precautions Precautions osteoporosis PT-OP-B Current Condition Start: 03/19/24 13:47 Freq: Status: Active Protocol: Document 04/01/24 13:04 SAK (Rec: 04/01/24 13:46 SAK [id number]) Current Condition History of Current Condition Onset Date 1+ yea Current Complaints bilateral shoulder pain History of Current Condition Several bad falls over the past year, but shoulders hurting before that. Most recently fell while doing balance exercises at home fractured pelvis last summer. Used a walker and cane, now uses hurry cane. Shoulder pain gradually worsening to the point she can't reach overhead or behind her back. Just got hearing aides and having difficulty putting in. Lays on back to sleep. Has to use oxygen at night. Couldn't do anything with her arms at cardiac rehab. For exercise patient doing SAFE exercise program, maintenance cardiac rehab (likes rowing machine the best) Prior Treatments and Tests no treatment. x-ray showed severe OA. PT-OP-C Subjective Start: 03/19/24 13:47 Freq: Status: Active Protocol: Document 04/03/24 13:03 SP (Rec: 04/03/24 14:00 SP [id number]) OP-PT Subjective Patient Comments Patient Comments Pt reports she wishes she had the mirror infront doing pullies for head/arm form, less strain on neck and shoulder. States had to look up protraction to see how it relates to her HEP and doing correctly. She states neck and shld feel ok at arrival. She is stepping on stool and usign both hands to put dishes away now. She can now lift heavy pans in cupboard and put away in drawer BUEs. PT-OP-F Manual Assessment Start: 03/19/24 13:47 Freq: Status: Active Protocol: Document 03/19/24 13:47 SAK (Rec: 03/24/24 08:43 SAK [id number]) Manual Assessments Soft Tissue Assessment Soft Tissue Mobility Assessment tightness pradeep UE, LS, pecs scalenes Joint Mobility Assessment Joint Mobility Assessment moderate to severe crepitus bilateral shoulders, gross decrease in joint mobility PT-OP-K Range of Motion Start: 03/19/24 13:47 Freq: Status: Active Protocol: Document 03/19/24 13:47 SAK (Rec: 03/19/24 14:33 SAK [id number]) Cervical Spine Range of Motion Cervical Spine Active Comments mod decrease all motions Shoulder Goniometric Range of Motion Shoulder Left Flexion 122 Extension 10 Abduction 95 External Rotation at 0 degrees Abduction 10 Internal Rotation Behind Back (text) L4 Right Flexion 168 Extension 15 Abduction 170 External Rotation at 0 degrees Abduction 30 Internal Rotation Behind Back (text) T10 Elbow/Forearm Range of Motion Elbow/Forearm pradeep Elbow/Forearm ROM WFL Yes PT-OP-M Strength Start: 03/19/24 13:47 Freq: Status: Active Protocol: Document 03/19/24 13:47 SAK (Rec: 03/19/24 14:33 [facility] [id number]) Shoulder Strength Shoulder Manual Muscle Testing pradeep Flexion 3- Fair- Extension 3- Fair- Abduction (C5) 3- Fair- Adduction 3+ Fair+ External Rotation 3- Fair- Internal Rotation 3- Fair- Elbow/Forearm Strength Elbow and Forearm Manual Muscle Testing Left Flexion (C6) 4+ Good+ Extension (C7) 4- Good- Right Flexion (C6) 5 Normal Extension (C7) 5 Normal PT-OP-Q Treatments Start: 03/19/24 13:47 Freq: Status: Active Protocol: Document 04/03/24 13:03 SP (Rec: 04/03/24 14:00 SP [id number]) Therapeutic Exercises Sitting Exercises sh ER Side bilateral Equipment Used wand Reps/Minutes 10x 5 Comments ER to 41 deg pulleys Sitting Exercise Name flexion, abduction, scaption Side bilateral Resistance RUE help LUE Reps/Minutes 20x each Comments ABD 145 L, 148 R; FF 143 L, 148 R Standing Exercises hor ab/ad Equipment Used counter, pillowcase Reps/Minutes 10x Comments arm at approx 165 deg elevation table slide Standing Exercise Name standing flexion rolling pin Side bilateral Resistance AROM>TB #1 around trunk then press out plus Equipment Used counter, pillowcase AROM> TB # 1 Reps/Minutes 10x Comments cued scap protraction/ retraction rhomboid & LTfac - decreased GH Jt crepitus Shld Isometric Standing Exercise Name IR, ER, FF, ABD, Ext Side left Equipment Used towel under arm, doorframe Reps/Minutes 10 SH x 10 reps Comments good self correct alignment and submax pressure rows Standing Exercise Name reviewed Side bilateral Resistance Tb #1 home yellow Reps/Minutes x10 Comments cued posture and Rhomboid PT-OP-R Modalities Start: 03/19/24 13:47 Freq: Status: Active Protocol: Document 04/01/24 13:04 SAK (Rec: 04/01/24 13:46 SAK [id number]) Hot Pack/Cold Pack Treatment Hot Pack Location L shoulder Patient Position Hooklying Patient Tolerance Good PT-OP-T Assessment and Plan Start: 03/19/24 13:47 Freq: Status: Active Protocol: Document 04/03/24 13:03 SP (Rec: 04/03/24 14:00 SP [id number]) Physical Therapy Assessment Goals 4 Impairment Quickdash UE disability index score 47% Short Term Goal (STG) decrease score to no greater than 37% as measure of improved shoulder function STG Duration 04/19/24 Residential Goal (LTG) decrease score to no greater than 25% as measure of improved shoulder function LTG Duration 06/17/24 3 Impairment painful driving Cranberry Grower Goal (LTG) Able to drive with minimal to no shoulder pain. 04/03/24: progressing 5/10 and has positioned hands 3 and 9 o 'clock to provide less pain and mostly uses RUE for turns and L UE guides wheel needed. LTG Duration 06/17/24 progressing 04/03/24 2 Impairment weakness and decreased shoulder ROM Short Term Goal (STG) Patient to be instructed in HEP for purposes of ROM and strengthening bilateral shoulders STG Duration 04/19/24 Residential Goal (LTG) improve strength of shoulders to at least 4+/5 for improved function bilateral shoulders LTG Duration 06/17/24 1 Impairment unable to reach high enough for purposes of putting hearing aids in Cranberry Grower Goal (LTG) Improve shoulder function sufficient to allow patient to put in hearing aids with ease LTG Duration 06/17/24 Assessment Summary Assessment Pt good response to ther ex review, improved AROM with tacile and VCs for rhomboid and LT engagement during ther ex lessening crepitus in L GH Jt. Able to progress counter flex slide to resisted Rolling pin assimulation with added resistance around trunk chest press motion decreased crepitus discomfort. Next tx pt would benefit from progress to driving wheel motion for progress L support 9>12 o' clock wants to improve. Physical Therapy Plan Frequency and Duration Frequency of Treatment 2x/Week Duration of treatment (weeks) 8 Plan of Care Start Date 03/19/24 Plan of Care End Date 05/17/24 Therapeutic Interventions Therapeutic Interventions Home Exercise Program,Manual Therapy,Patient/Caregiver Education,Self-Care/Home Management,Soft Tissue Mobilization,Taping, Therapeutic Activities, Therapeutic Exercises Modalities Cold Pack/Ice Massage,Electric Stimulation,Hot Packs, Infrared Therapy,Ultrasound Next Visit Focus/Plan Next Note Type Treatment Note Next Visit Plan Next: trial steering wheel motions wants to get better at L UE toward 12 o'clock ROM ( BAPS board) and use rolling pin roll out dough for making pies. POC: continue gentle ROM, strengthening, postural correction exercises. Modalities and manual therapy PRN.
--- NOTE | 2024-04-08 12:26 | PT.OTN ---
Current Diagnoses Pain in right shoulder (04/08/24) Pain in left shoulder (04/08/24) Abnormal posture (04/08/24) Weakness (04/08/24) Physical Therapy Treatment Note PT-OP-A Visit Information Start: 03/19/24 13:47 Freq: Status: Active Protocol: Document 04/08/24 11:18 AB (Rec: 04/08/24 12:26 AB [id number]) Out-Patient Physical Therapy Visit Information Visit Information Visit Type Treatment Note Visit Start Time 11:34 Visit Stop Time 12:23 Visit Number 5 Number of SEISMIC COMPUTER Visits 2 Evaluation Information Evaluation Date 03/19/24 Precautions Precautions osteoporosis PT-OP-B Current Condition Start: 03/19/24 13:47 Freq: Status: Active Protocol: Document 04/01/24 13:04 SAK (Rec: 04/01/24 13:46 SAK [id number]) Current Condition History of Current Condition Onset Date 1+ yea Current Complaints bilateral shoulder pain History of Current Condition Several bad falls over the past year, but shoulders hurting before that. Most recently fell while doing balance exercises at home fractured pelvis last summer. Used a walker and cane, now uses hurry cane. Shoulder pain gradually worsening to the point she can't reach overhead or behind her back. Just got hearing aides and having difficulty putting in. Lays on back to sleep. Has to use oxygen at night. Couldn't do anything with her arms at cardiac rehab. For exercise patient doing SAFE exercise program, maintenance cardiac rehab (likes rowing machine the best) Prior Treatments and Tests no treatment. x-ray showed severe OA. PT-OP-C Subjective Start: 03/19/24 13:47 Freq: Status: Active Protocol: Document 04/08/24 11:18 AB (Rec: 04/08/24 12:26 AB [id number]) OP-PT Subjective Patient Comments Patient Comments Patient reports she is better, comments she was able to get her arm up to the top of the steering wheel. Pat rates pain 0/10 at rest 3-4/10 L UE with movement. PT-OP-F Manual Assessment Start: 03/19/24 13:47 Freq: Status: Active Protocol: Document 03/19/24 13:47 SAK (Rec: 03/24/24 08:43 SAK [id number]) Manual Assessments Soft Tissue Assessment Soft Tissue Mobility Assessment tightness pradeep UE, LS, pecs scalenes Joint Mobility Assessment Joint Mobility Assessment moderate to severe crepitus bilateral shoulders, gross decrease in joint mobility PT-OP-K Range of Motion Start: 03/19/24 13:47 Freq: Status: Active Protocol: Document 03/19/24 13:47 SAK (Rec: 03/19/24 14:33 [facility] [id number]) Cervical Spine Range of Motion Cervical Spine Active Comments mod decrease all motions Shoulder Goniometric Range of Motion Shoulder Left Flexion 122 Extension 10 Abduction 95 External Rotation at 0 degrees Abduction 10 Internal Rotation Behind Back (text) L4 Right Flexion 168 Extension 15 Abduction 170 External Rotation at 0 degrees Abduction 30 Internal Rotation Behind Back (text) T10 Elbow/Forearm Range of Motion Elbow/Forearm pradeep Elbow/Forearm ROM WFL Yes PT-OP-M Strength Start: 03/19/24 13:47 Freq: Status: Active Protocol: Document 03/19/24 13:47 [facility] (Rec: 03/19/24 14:33 [facility] [id number]) Shoulder Strength Shoulder Manual Muscle Testing pradeep Flexion 3- Fair- Extension 3- Fair- Abduction (C5) 3- Fair- Adduction 3+ Fair+ External Rotation 3- Fair- Internal Rotation 3- Fair- Elbow/Forearm Strength Elbow and Forearm Manual Muscle Testing Left Flexion (C6) 4+ Good+ Extension (C7) 4- Good- Right Flexion (C6) 5 Normal Extension (C7) 5 Normal PT-OP-Q Treatments Start: 03/19/24 13:47 Freq: Status: Active Protocol: Document 04/08/24 11:18 AB (Rec: 04/08/24 12:26 AB [id number]) Therapeutic Exercises Supine Exercises chest supervisor industrial garment Side bilateral Reps/Minutes 2 min Comments verbal and tactile cues FF Side bilateral Resistance dowel AAROM Reps/Minutes x10 reps serratus press Side bilateral Resistance dowel Reps/Minutes X 3 reports inc clunking crepitus Comments 1 scap protraction/retraction cued slow control pnfree Sidelying Exercises sidelying shoulder IR Sidelying Exercise Name AROM Side bilateral Reps/Minutes X10 Comments verbal and tactile cues shld ER Side bilateral Reps/Minutes X10 Comments verbal and tactile cues Standing Exercises serratus punch Standing Exercise Name into small blue ball Side bilateral Reps/Minutes X10 Comments verbal and visual cues Manual Therapy Treatment Soft Tissue Mobilization neck Body Location UT, levat scap, lat edge of clavicle/scalene Mobilization Type Cross-Friction,Rolling, Sustained Pressure Intensity/Depth Moderate Body Position Sitting L shld Body Location pec, post cuff, rhomb Mobilization Type Cross-Friction,Rolling Intensity/Depth Moderate Body Position Hooklying Comments and sidelying Joint Mobilizations L scapulothoracic Joint bilateral Direction into dep and add Grade IV Body Position Sidelying Reps/Duration X10 each direct each LE PT-OP-R Modalities Start: 03/19/24 13:47 Freq: Status: Active Protocol: Document 04/01/24 13:04 SAK (Rec: 04/01/24 13:46 SAK [id number]) Hot Pack/Cold Pack Treatment Hot Pack Location L shoulder Patient Position Hooklying Patient Tolerance Good PT-OP-T Assessment and Plan Start: 03/19/24 13:47 Freq: Status: Active Protocol: Document 04/08/24 11:18 AB (Rec: 04/08/24 12:26 AB [id number]) Physical Therapy Assessment Goals 4 Impairment Quickdash UE disability index score 47% Short Term Goal (STG) decrease score to no greater than 37% as measure of improved shoulder function STG Duration 04/19/24 Assistant Farm Operations Manager Goal (LTG) decrease score to no greater than 25% as measure of improved shoulder function LTG Duration 06/17/24 3 Impairment painful driving Assistant Farm Operations Manager Goal (LTG) Able to drive with minimal to no shoulder pain. 04/03/24: progressing 5/10 and has positioned hands 3 and 9 o 'clock to provide less pain and mostly uses RUE for turns and L UE guides wheel needed. 04/08/2024 Patient reports able to reach 12:00 on steering wheel. LTG Duration 06/17/24 progressing 04/03/24 2 Impairment weakness and decreased shoulder ROM Short Term Goal (STG) Patient to be instructed in HEP for purposes of ROM and strengthening bilateral shoulders STG Duration 04/19/24 Assistant Farm Operations Manager Goal (LTG) improve strength of shoulders to at least 4+/5 for improved function bilateral shoulders LTG Duration 06/17/24 1 Impairment unable to reach high enough for purposes of putting hearing aids in Assisted Goal (LTG) Improve shoulder function sufficient to allow patient to put in hearing aids with ease LTG Duration 06/17/24 Assessment Summary Assessment AROM left shoulder flexion 106 deg end of session, reports having no pain end of session. Pat into session with reports of able to reach top of steering wheel. Physical Therapy Plan Frequency and Duration Frequency of Treatment 2x/Week Duration of treatment (weeks) 8 Plan of Care Start Date 03/19/24 Plan of Care End Date 05/17/24 Next Visit Focus/Plan Next Note Type Treatment Note Next Visit Plan Next: ( possibly ask if patient still reaching 12 on steering wheel )trial steering wheel motions wants to get better at L UE toward 12 o' clock ROM (BAPS board) and use rolling pin roll out dough for making pies. POC: continue gentle ROM, strengthening, postural correction exercises. Modalities and manual therapy PRN.
--- NOTE | 2024-04-10 12:39 | PT.OTN ---
Current Diagnoses Pain in right shoulder (04/10/24) Pain in left shoulder (04/10/24) Abnormal posture (04/10/24) Weakness (04/10/24) Physical Therapy Treatment Note PT-OP-A Visit Information Start: 03/19/24 13:47 Freq: Status: Active Protocol: Document 04/10/24 10:39 AB (Rec: 04/10/24 12:39 AB [id number]) Out-Patient Physical Therapy Visit Information Visit Information Visit Type Treatment Note Visit Start Time 10:52 Visit Stop Time 11:34 Visit Number 6 Number of SEAMER OPERATOR Visits 3 Evaluation Information Evaluation Date 03/19/24 Precautions Precautions osteoporosis PT-OP-B Current Condition Start: 03/19/24 13:47 Freq: Status: Active Protocol: Document 04/01/24 13:04 SAK (Rec: 04/01/24 13:46 SAK [id number]) Current Condition History of Current Condition Onset Date 1+ yea Current Complaints bilateral shoulder pain History of Current Condition Several bad falls over the past year, but shoulders hurting before that. Most recently fell while doing balance exercises at home fractured pelvis last summer. Used a walker and cane, now uses hurry cane. Shoulder pain gradually worsening to the point she can't reach overhead or behind her back. Just got hearing aides and having difficulty putting in. Lays on back to sleep. Has to use oxygen at night. Couldn't do anything with her arms at cardiac rehab. For exercise patient doing SAFE exercise program, maintenance cardiac rehab (likes rowing machine the best) Prior Treatments and Tests no treatment. x-ray showed severe OA. PT-OP-C Subjective Start: 03/19/24 13:47 Freq: Status: Active Protocol: Document 04/10/24 10:39 AB (Rec: 04/10/24 12:39 AB [id number]) OP-PT Subjective Patient Comments Patient Comments atient reports she she is doing her exercises, rates pain 2/10 L shoulder start of session. Pat reports she is still able to reach to 12:00 on steering wheel when driving . AROM left shoulder flexion 94 deg start of session. PT-OP-F Manual Assessment Start: 03/19/24 13:47 Freq: Status: Active Protocol: Document 03/19/24 13:47 SAK (Rec: 03/24/24 08:43 SAK [id number]) Manual Assessments Soft Tissue Assessment Soft Tissue Mobility Assessment tightness pradeep UE, LS, pecs scalenes Joint Mobility Assessment Joint Mobility Assessment moderate to severe crepitus bilateral shoulders, gross decrease in joint mobility PT-OP-K Range of Motion Start: 03/19/24 13:47 Freq: Status: Active Protocol: Document 03/19/24 13:47 [facility] (Rec: 03/19/24 14:33 [facility] [id number]) Cervical Spine Range of Motion Cervical Spine Active Comments mod decrease all motions Shoulder Goniometric Range of Motion Shoulder Left Flexion 122 Extension 10 Abduction 95 External Rotation at 0 degrees Abduction 10 Internal Rotation Behind Back (text) L4 Right Flexion 168 Extension 15 Abduction 170 External Rotation at 0 degrees Abduction 30 Internal Rotation Behind Back (text) T10 Elbow/Forearm Range of Motion Elbow/Forearm pradeep Elbow/Forearm ROM WFL Yes PT-OP-M Strength Start: 03/19/24 13:47 Freq: Status: Active Protocol: Document 03/19/24 13:47 [facility] (Rec: 03/19/24 14:33 [facility] [id number]) Shoulder Strength Shoulder Manual Muscle Testing pradeep Flexion 3- Fair- Extension 3- Fair- Abduction (C5) 3- Fair- Adduction 3+ Fair+ External Rotation 3- Fair- Internal Rotation 3- Fair- Elbow/Forearm Strength Elbow and Forearm Manual Muscle Testing Left Flexion (C6) 4+ Good+ Extension (C7) 4- Good- Right Flexion (C6) 5 Normal Extension (C7) 5 Normal PT-OP-Q Treatments Start: 03/19/24 13:47 Freq: Status: Active Protocol: Document 04/10/24 10:39 AB (Rec: 04/10/24 12:39 AB [id number]) Therapeutic Exercises Sitting Exercises pulleys Sitting Exercise Name flexion and scaption Side bilateral Reps/Minutes 4 min Comments verbal cues and use of mirror Standing Exercises rolling at counter height' Reps/Minutes 2 min Comments verbal cues for weight shift in stagger stance serratus punch Standing Exercise Name into small blue ball Side bilateral Reps/Minutes X10 Comments verbal and visual cues Manual Therapy Treatment Soft Tissue Mobilization neck Body Location B UT, levat scap, lat edge of clavicle/scalene Mobilization Type Cross-Friction,Rolling, Sustained Pressure Intensity/Depth Moderate Body Position Sitting L shld Body Location pec, post cuff, rhomb bilateral Mobilization Type Cross-Friction,Rolling Intensity/Depth Moderate Body Position Hooklying Comments and sidelying Joint Mobilizations L scapulothoracic Joint bilateral Direction into dep and add Grade IV Body Position Sidelying Reps/Duration X10 each direct each LE PT-OP-R Modalities Start: 03/19/24 13:47 Freq: Status: Active Protocol: Document 04/01/24 13:04 SAK (Rec: 04/01/24 13:46 SAK [id number]) Hot Pack/Cold Pack Treatment Hot Pack Location L shoulder Patient Position Hooklying Patient Tolerance Good PT-OP-T Assessment and Plan Start: 03/19/24 13:47 Freq: Status: Active Protocol: Document 04/10/24 10:39 AB (Rec: 04/10/24 12:39 AB [id number]) Physical Therapy Assessment Goals 4 Impairment Quickdash UE disability index score 47% Short Term Goal (STG) decrease score to no greater than 37% as measure of improved shoulder function STG Duration 04/19/24 Inventory Associate Goal (LTG) decrease score to no greater than 25% as measure of improved shoulder function LTG Duration 06/17/24 3 Impairment painful driving Residential Goal (LTG) Able to drive with minimal to no shoulder pain. 04/03/24: progressing 5/10 and has positioned hands 3 and 9 o 'clock to provide less pain and mostly uses RUE for turns and L UE guides wheel needed. 04/08/2024 Patient reports able to reach 12:00 on steering wheel. LTG Duration 06/17/24 progressing 04/03/24 2 Impairment weakness and decreased shoulder ROM Short Term Goal (STG) Patient to be instructed in HEP for purposes of ROM and strengthening bilateral shoulders STG Duration 04/19/24 Inventory Associate Goal (LTG) improve strength of shoulders to at least 4+/5 for improved function bilateral shoulders LTG Duration 06/17/24 1 Impairment unable to reach high enough for purposes of putting hearing aids in Residential Goal (LTG) Improve shoulder function sufficient to allow patient to put in hearing aids with ease LTG Duration 06/17/24 Assessment Summary Assessment AROM left shoulder flexion 105 deg end of session. Patient reports having no pain end of session. Physical Therapy Plan Frequency and Duration Frequency of Treatment 2x/Week Duration of treatment (weeks) 8 Plan of Care Start Date 03/19/24 Plan of Care End Date 05/17/24 Next Visit Focus/Plan Next Note Type Treatment Note Next Visit Plan Next:continue use rolling pin roll out dough for making pies. POC: continue gentle ROM, strengthening, postural correction exercises. Modalities and manual therapy PRN.
--- NOTE | 2024-04-13 13:36 | PT-OP ANOTE ---
cancelled due to snow, afraid of fallling.
--- NOTE | 2024-04-15 13:54 | PT.OTN ---
Current Diagnoses Pain in right shoulder (04/15/24) Pain in left shoulder (04/15/24) Abnormal posture (04/15/24) Weakness (04/15/24) Physical Therapy Treatment Note PT-OP-A Visit Information Start: 03/19/24 13:47 Freq: Status: Active Protocol: Document 04/15/24 13:00 [facility] (Rec: 04/15/24 13:54 [facility] [id number]) Out-Patient Physical Therapy Visit Information Visit Information Visit Type Treatment Note Visit Start Time 13:01 Visit Stop Time 13:50 Visit Number 7 Evaluation Information Evaluation Date 03/19/24 Precautions Precautions osteoporosis PT-OP-B Current Condition Start: 03/19/24 13:47 Freq: Status: Active Protocol: Document 04/01/24 13:04 [facility] (Rec: 04/01/24 13:46 [facility] [id number]) Current Condition History of Current Condition Onset Date 1+ yea Current Complaints bilateral shoulder pain History of Current Condition Several bad falls over the past year, but shoulders hurting before that. Most recently fell while doing balance exercises at home fractured pelvis last summer. Used a walker and cane, now uses hurry cane. Shoulder pain gradually worsening to the point she can't reach overhead or behind her back. Just got hearing aides and having difficulty putting in. Lays on back to sleep. Has to use oxygen at night. Couldn't do anything with her arms at cardiac rehab. For exercise patient doing SAFE exercise program, maintenance cardiac rehab (likes rowing machine the best) Prior Treatments and Tests no treatment. x-ray showed severe OA. PT-OP-C Subjective Start: 03/19/24 13:47 Freq: Status: Active Protocol: Document 04/15/24 13:00 [facility] (Rec: 04/15/24 13:54 [facility] [id number]) OP-PT Subjective Patient Comments Patient Comments Rolled out pie crust this am , shoulder ok. 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 . AROM left shoulder elevation 123 to start session Patient Reported Progress Improving PT-OP-F Manual Assessment Start: 03/19/24 13:47 Freq: Status: Active Protocol: Document 03/19/24 13:47 [facility] (Rec: 03/24/24 08:43 [facility] [id number]) Manual Assessments Soft Tissue Assessment Soft Tissue Mobility Assessment tightness pradeep UE, LS, pecs scalenes Joint Mobility Assessment Joint Mobility Assessment moderate to severe crepitus bilateral shoulders, gross decrease in joint mobility PT-OP-K Range of Motion Start: 03/19/24 13:47 Freq: Status: Active Protocol: Document 03/19/24 13:47 [facility] (Rec: 03/19/24 14:33 [facility] [id number]) Cervical Spine Range of Motion Cervical Spine Active Comments mod decrease all motions Shoulder Goniometric Range of Motion Shoulder Left Flexion 122 Extension 10 Abduction 95 External Rotation at 0 degrees Abduction 10 Internal Rotation Behind Back (text) L4 Right Flexion 168 Extension 15 Abduction 170 External Rotation at 0 degrees Abduction 30 Internal Rotation Behind Back (text) T10 Elbow/Forearm Range of Motion Elbow/Forearm pradeep Elbow/Forearm ROM WFL Yes PT-OP-M Strength Start: 03/19/24 13:47 Freq: Status: Active Protocol: Document 03/19/24 13:47 [facility] (Rec: 03/19/24 14:33 [facility] [id number]) Shoulder Strength Shoulder Manual Muscle Testing pradeep Flexion 3- Fair- Extension 3- Fair- Abduction (C5) 3- Fair- Adduction 3+ Fair+ External Rotation 3- Fair- Internal Rotation 3- Fair- Elbow/Forearm Strength Elbow and Forearm Manual Muscle Testing Left Flexion (C6) 4+ Good+ Extension (C7) 4- Good- Right Flexion (C6) 5 Normal Extension (C7) 5 Normal PT-OP-Q Treatments Start: 03/19/24 13:47 Freq: Status: Active Protocol: Document 04/15/24 13:00 [facility] (Rec: 04/15/24 13:54 [facility] [id number]) Therapeutic Exercises Supine Exercises AAROM ER Equipment Used towel roll under arm Reps/Minutes 10x Comments 48 deg chest press Resistance dowel Reps/Minutes 10x FF Side bilateral Resistance dowel AAROM Reps/Minutes x10 reps Comments 90-160 deg serratus press Side bilateral Reps/Minutes 10x Sitting Exercises sh ER Side bilateral Equipment Used wand Reps/Minutes 10x 5 Comments ER to 41 deg pulleys Sitting Exercise Name flexion and scaption Side bilateral Reps/Minutes 4 min Comments verbal cues and use of mirror Standing Exercises shoulder ER Resistance L1 TB (latex free) Reps/Minutes 10x Comments lacks full motion, cues for pain-free sh ext Resistance L3 TB (Latex free) Reps/Minutes 10x rows Side bilateral Resistance Tb #3 (latex free) Reps/Minutes x10 Comments cued posture and Rhomboid Manual Therapy Treatment Soft Tissue Mobilization neck Body Location B UT, levat scap, lat edge of clavicle/scalene Mobilization Type Cross-Friction,Rolling, Sustained Pressure Intensity/Depth Moderate Body Position Supine L shld Body Location pec, post cuff, rhomb bilateral Mobilization Type Cross-Friction,Rolling Intensity/Depth Moderate Body Position Hooklying Comments and sidelying Joint Mobilizations L scapulothoracic Joint bilateral Direction into dep and add Grade IV Body Position Sidelying Reps/Duration X10 each direct each LE PT-OP-R Modalities Start: 03/19/24 13:47 Freq: Status: Active Protocol: Document 04/15/24 13:00 [facility] (Rec: 04/15/24 13:54 [facility] [id number]) Hot Pack/Cold Pack Treatment Hot Pack Location L shoulder Patient Position Hooklying Patient Tolerance Good PT-OP-T Assessment and Plan Start: 03/19/24 13:47 Freq: Status: Active Protocol: Document 04/15/24 13:00 [facility] (Rec: 04/15/24 13:54 [facility] [id number]) Physical Therapy Assessment Goals 4 Impairment Quickdash UE disability index score 47% Short Term Goal (STG) decrease score to no greater than 37% as measure of improved shoulder function STG Duration 04/19/24 Snf Goal (LTG) decrease score to no greater than 25% as measure of improved shoulder function LTG Duration 06/17/24 3 Impairment painful driving [employer] Goal (LTG) Able to drive with minimal to no shoulder pain. 04/03/24: progressing 5/10 and has positioned hands 3 and 9 o 'clock to provide less pain and mostly uses RUE for turns and L UE guides wheel needed. 04/08/2024 Patient reports able to reach 12:00 on steering wheel. LTG Duration 06/17/24 progressing 04/03/24 2 Impairment weakness and decreased shoulder ROM Short Term Goal (STG) Patient to be instructed in HEP for purposes of ROM and strengthening bilateral shoulders STG Duration 04/19/24 [employer] Goal (LTG) improve strength of shoulders to at least 4+/5 for improved function bilateral shoulders LTG Duration 06/17/24 1 Impairment unable to reach high enough for purposes of putting hearing aids in Snf Goal (LTG) Improve shoulder function sufficient to allow patient to put in hearing aids with ease LTG Duration 06/17/24 Assessment Summary Assessment AROM left shoulder 126, AAROM supine 160 end of session. Denied pain end of session after manual and MH Physical Therapy Plan Frequency and Duration Frequency of Treatment 2x/Week Duration of treatment (weeks) 8 Plan of Care Start Date 03/19/24 Plan of Care End Date 05/17/24 Therapeutic Interventions Therapeutic Interventions Home Exercise Program,Manual Therapy,Patient/Caregiver Education,Self-Care/Home Management,Soft Tissue Mobilization,Taping, Therapeutic Activities, Therapeutic Exercises Modalities Cold Pack/Ice Massage,Electric Stimulation,Hot Packs, Infrared Therapy,Ultrasound Next Visit Focus/Plan Next Note Type Treatment Note Next Visit Plan POC: continue gentle ROM, strengthening, postural correction exercises. Modalities and manual therapy PRN.
--- NOTE | 2024-04-20 16:29 | PT.OTN ---
Current Diagnoses Pain in right shoulder (04/20/24) Pain in left shoulder (04/20/24) Abnormal posture (04/20/24) Weakness (04/20/24) Physical Therapy Treatment Note PT-OP-A Visit Information Start: 03/19/24 13:47 Freq: Status: Active Protocol: Document 04/20/24 14:35 [facility] (Rec: 04/20/24 15:16 [facility] [id number]) Out-Patient Physical Therapy Visit Information Visit Information Visit Type Treatment Note Visit Start Time 14:35 Visit Stop Time 15:15 Visit Number 8 Evaluation Information Evaluation Date 03/19/24 Precautions Precautions osteoporosis PT-OP-B Current Condition Start: 03/19/24 13:47 Freq: Status: Active Protocol: Document 04/20/24 14:35 [facility] (Rec: 04/20/24 15:16 [facility] [id number]) Current Condition History of Current Condition Onset Date 1+ yea Current Complaints bilateral shoulder pain History of Current Condition Several bad falls over the past year, but shoulders hurting before that. Most recently fell while doing balance exercises at home fractured pelvis last summer. Used a walker and cane, now uses hurry cane. Shoulder pain gradually worsening to the point she can't reach overhead or behind her back. Just got hearing aides and having difficulty putting in. Lays on back to sleep. Has to use oxygen at night. Couldn't do anything with her arms at cardiac rehab. For exercise patient doing SAFE exercise program, maintenance cardiac rehab (likes rowing machine the best) Prior Treatments and Tests no treatment. x-ray showed severe OA. PT-OP-C Subjective Start: 03/19/24 13:47 Freq: Status: Active Protocol: Document 04/20/24 14:35 [facility] (Rec: 04/20/24 15:16 [facility] [id number]) OP-PT Subjective Patient Comments Patient Comments Moving her shoulder more, still difficult to open her car door but thinks a little better. Compliant to HEP. PT-OP-F Manual Assessment Start: 03/19/24 13:47 Freq: Status: Active Protocol: Document 03/19/24 13:47 [facility] (Rec: 03/24/24 08:43 [facility] [id number]) Manual Assessments Soft Tissue Assessment Soft Tissue Mobility Assessment tightness pradeep UE, LS, pecs scalenes Joint Mobility Assessment Joint Mobility Assessment moderate to severe crepitus bilateral shoulders, gross decrease in joint mobility PT-OP-K Range of Motion Start: 03/19/24 13:47 Freq: Status: Active Protocol: Document 03/19/24 13:47 [facility] (Rec: 03/19/24 14:33 [facility] [id number]) Cervical Spine Range of Motion Cervical Spine Active Comments mod decrease all motions Shoulder Goniometric Range of Motion Shoulder Left Flexion 122 Extension 10 Abduction 95 External Rotation at 0 degrees Abduction 10 Internal Rotation Behind Back (text) L4 Right Flexion 168 Extension 15 Abduction 170 External Rotation at 0 degrees Abduction 30 Internal Rotation Behind Back (text) T10 Elbow/Forearm Range of Motion Elbow/Forearm pradeep Elbow/Forearm ROM WFL Yes PT-OP-M Strength Start: 03/19/24 13:47 Freq: Status: Active Protocol: Document 03/19/24 13:47 [facility] (Rec: 03/19/24 14:33 [facility] [id number]) Shoulder Strength Shoulder Manual Muscle Testing pradeep Flexion 3- Fair- Extension 3- Fair- Abduction (C5) 3- Fair- Adduction 3+ Fair+ External Rotation 3- Fair- Internal Rotation 3- Fair- Elbow/Forearm Strength Elbow and Forearm Manual Muscle Testing Left Flexion (C6) 4+ Good+ Extension (C7) 4- Good- Right Flexion (C6) 5 Normal Extension (C7) 5 Normal PT-OP-Q Treatments Start: 03/19/24 13:47 Freq: Status: Active Protocol: Document 04/20/24 14:35 [facility] (Rec: 04/20/24 15:16 [facility] [id number]) Therapeutic Exercises Supine Exercises AAROM ER Equipment Used towel roll under arm Reps/Minutes 10x Comments 48 deg chest press Reps/Minutes 10x Comments punches FF Side bilateral Resistance dowel AAROM Reps/Minutes x10 reps Comments 90-160 deg serratus press Side bilateral Reps/Minutes 10x Sitting Exercises sh ER Side bilateral Equipment Used wand Reps/Minutes 10x 5 pulleys Sitting Exercise Name flexion and scaption Side bilateral Reps/Minutes 4 min Comments verbal cues and use of mirror Standing Exercises sh ext Resistance L3 TB (Latex free) Reps/Minutes 10x rows Side bilateral Resistance Tb #3 (latex free) Reps/Minutes x10 Comments cued posture and Rhomboid Manual Therapy Treatment Soft Tissue Mobilization neck Body Location B UT, levat scap, lat edge of clavicle/scalene Mobilization Type Cross-Friction,Rolling, Sustained Pressure Intensity/Depth Moderate Body Position Hooklying L shld Body Location pec, post cuff, rhomb bilateral Mobilization Type Cross-Friction,Rolling Intensity/Depth Moderate Body Position Hooklying Comments and sidelying PT-OP-R Modalities Start: 03/19/24 13:47 Freq: Status: Active Protocol: Document 04/15/24 13:00 [facility] (Rec: 04/15/24 13:54 [facility] [id number]) Hot Pack/Cold Pack Treatment Hot Pack Location L shoulder Patient Position Hooklying Patient Tolerance Good PT-OP-T Assessment and Plan Start: 03/19/24 13:47 Freq: Status: Active Protocol: Document 04/20/24 14:35 [facility] (Rec: 04/20/24 15:16 [facility] [id number]) Physical Therapy Assessment Goals 4 Impairment Quickdash UE disability index score 47% Short Term Goal (STG) decrease score to no greater than 37% as measure of improved shoulder function STG Duration 04/19/24 Crude Tester Goal (LTG) decrease score to no greater than 25% as measure of improved shoulder function LTG Duration 06/17/24 3 Impairment painful driving Crude Tester Goal (LTG) Able to drive with minimal to no shoulder pain. 04/03/24: progressing 5/10 and has positioned hands 3 and 9 o 'clock to provide less pain and mostly uses RUE for turns and L UE guides wheel needed. 04/08/2024 Patient reports able to reach 12:00 on steering wheel. LTG Duration 06/17/24 progressing 04/03/24 2 Impairment weakness and decreased shoulder ROM Short Term Goal (STG) Patient to be instructed in HEP for purposes of ROM and strengthening bilateral shoulders STG Duration 04/19/24 Crude Tester Goal (LTG) improve strength of shoulders to at least 4+/5 for improved function bilateral shoulders LTG Duration 06/17/24 1 Impairment unable to reach high enough for purposes of putting hearing aids in Crude Tester Goal (LTG) Improve shoulder function sufficient to allow patient to put in hearing aids with ease LTG Duration 06/17/24 Assessment Summary Assessment AAROM left shoulder 160 end of session. Full ER in supine at 30 deg abd in scapular plane, 32 deg seated. Mod cues for scapular activation with rows and shoulder ext Physical Therapy Plan Frequency and Duration Frequency of Treatment 2x/Week Duration of treatment (weeks) 8 Plan of Care Start Date 03/19/24 Plan of Care End Date 05/17/24 Therapeutic Interventions Therapeutic Interventions Home Exercise Program,Manual Therapy,Patient/Caregiver Education,Self-Care/Home Management,Soft Tissue Mobilization,Taping, Therapeutic Activities, Therapeutic Exercises Modalities Cold Pack/Ice Massage,Electric Stimulation,Hot Packs, Infrared Therapy,Ultrasound Next Visit Focus/Plan Next Note Type Treatment Note Next Visit Plan Lat pulls with TB, trial functional door opening movement with TB. Continue shoulder ROM and strengthening as tolerated. Manual therapy and modalities PRN
--- NOTE | 2024-04-22 15:41 | PT.OTN ---
Current Diagnoses Pain in right shoulder (04/22/24) Pain in left shoulder (04/22/24) Abnormal posture (04/22/24) Weakness (04/22/24) Physical Therapy Treatment Note PT-OP-A Visit Information Start: 03/19/24 13:47 Freq: Status: Active Protocol: Document 04/22/24 10:46 [facility] (Rec: 04/22/24 11:33 [facility] [id number]) Out-Patient Physical Therapy Visit Information Visit Information Visit Type Treatment Note Visit Start Time 10:46 Visit Stop Time 11:31 Visit Number 9 PT-OP-B Current Condition Start: 03/19/24 13:47 Freq: Status: Active Protocol: Document 04/22/24 10:46 [facility] (Rec: 04/22/24 11:33 [facility] [id number]) Current Condition History of Current Condition Onset Date 1+ yea Current Complaints bilateral shoulder pain History of Current Condition Several bad falls over the past year, but shoulders hurting before that. Most recently fell while doing balance exercises at home fractured pelvis last summer. Used a walker and cane, now uses hurry cane. Shoulder pain gradually worsening to the point she can't reach overhead or behind her back. Just got hearing aides and having difficulty putting in. Lays on back to sleep. Has to use oxygen at night. Couldn't do anything with her arms at cardiac rehab. For exercise patient doing SAFE exercise program, maintenance cardiac rehab (likes rowing machine the best) Prior Treatments and Tests no treatment. x-ray showed severe OA. PT-OP-C Subjective Start: 03/19/24 13:47 Freq: Status: Active Protocol: Document 04/20/24 14:35 [facility] (Rec: 04/20/24 15:16 [facility] [id number]) OP-PT Subjective Patient Comments Patient Comments Moving her shoulder more, still difficult to open her car door but thinks a little better. Compliant to HEP. PT-OP-F Manual Assessment Start: 03/19/24 13:47 Freq: Status: Active Protocol: Document 03/19/24 13:47 [facility] (Rec: 03/24/24 08:43 [facility] [id number]) Manual Assessments Soft Tissue Assessment Soft Tissue Mobility Assessment tightness pradeep UE, LS, pecs scalenes Joint Mobility Assessment Joint Mobility Assessment moderate to severe crepitus bilateral shoulders, gross decrease in joint mobility PT-OP-K Range of Motion Start: 03/19/24 13:47 Freq: Status: Active Protocol: Document 03/19/24 13:47 [facility] (Rec: 03/19/24 14:33 [facility] [id number]) Cervical Spine Range of Motion Cervical Spine Active Comments mod decrease all motions Shoulder Goniometric Range of Motion Shoulder Left Flexion 122 Extension 10 Abduction 95 External Rotation at 0 degrees Abduction 10 Internal Rotation Behind Back (text) L4 Right Flexion 168 Extension 15 Abduction 170 External Rotation at 0 degrees Abduction 30 Internal Rotation Behind Back (text) T10 Elbow/Forearm Range of Motion Elbow/Forearm pradeep Elbow/Forearm ROM WFL Yes PT-OP-M Strength Start: 03/19/24 13:47 Freq: Status: Active Protocol: Document 03/19/24 13:47 [facility] (Rec: 03/19/24 14:33 [facility] [id number]) Shoulder Strength Shoulder Manual Muscle Testing pradeep Flexion 3- Fair- Extension 3- Fair- Abduction (C5) 3- Fair- Adduction 3+ Fair+ External Rotation 3- Fair- Internal Rotation 3- Fair- Elbow/Forearm Strength Elbow and Forearm Manual Muscle Testing Left Flexion (C6) 4+ Good+ Extension (C7) 4- Good- Right Flexion (C6) 5 Normal Extension (C7) 5 Normal PT-OP-Q Treatments Start: 03/19/24 13:47 Freq: Status: Active Protocol: Document 04/22/24 10:46 [facility] (Rec: 04/22/24 11:33 [facility] [id number]) Therapeutic Exercises Supine Exercises AAROM ER Equipment Used towel roll under arm Reps/Minutes 10x Comments 54 deg chest press Reps/Minutes 10x Comments punches FF Side bilateral Resistance dowel AAROM Reps/Minutes x10 reps Comments 90-160 deg Sitting Exercises pulleys Sitting Exercise Name flexion and scaption Side bilateral Reps/Minutes 4 min Standing Exercises wall slide Side left Equipment Used towel Reps/Minutes 10x Comments added to HEP warm ups Standing Exercise Name sh IR/ER arms at sides, shoulder rolls pradeep and unil Reps/Minutes 10x ea shoulder ER Standing Exercise Name 1. table slide Equipment Used towel Reps/Minutes 10x Comments lacks full motion, cues for pain-free. Added to HEP Manual Therapy Treatment Soft Tissue Mobilization neck Body Location B UT, levat scap, lat edge of clavicle/scalene Mobilization Type Cross-Friction,Rolling, Sustained Pressure Intensity/Depth Moderate Body Position Hooklying L shld Body Location pec, post cuff, rhomb bilateral Mobilization Type Cross-Friction,Rolling Intensity/Depth Moderate Body Position Hooklying Comments and sidelying PT-OP-R Modalities Start: 03/19/24 13:47 Freq: Status: Active Protocol: Document 04/15/24 13:00 [facility] (Rec: 04/15/24 13:54 [facility] [id number]) Hot Pack/Cold Pack Treatment Hot Pack Location L shoulder Patient Position Hooklying Patient Tolerance Good PT-OP-T Assessment and Plan Start: 03/19/24 13:47 Freq: Status: Active Protocol: Document 04/22/24 10:46 [facility] (Rec: 04/22/24 11:33 [facility] [id number]) Physical Therapy Assessment Goals 4 Impairment Quickdash UE disability index score 47% Short Term Goal (STG) decrease score to no greater than 37% as measure of improved shoulder function STG Duration 04/19/24 [employer] Goal (LTG) decrease score to no greater than 25% as measure of improved shoulder function LTG Duration 06/17/24 3 Impairment painful driving [facility] Goal (LTG) Able to drive with minimal to no shoulder pain. 04/03/24: progressing 5/10 and has positioned hands 3 and 9 o 'clock to provide less pain and mostly uses RUE for turns and L UE guides wheel needed. 04/08/2024 Patient reports able to reach 12:00 on steering wheel. LTG Duration 06/17/24 progressing 04/03/24 2 Impairment weakness and decreased shoulder ROM Short Term Goal (STG) Patient to be instructed in HEP for purposes of ROM and strengthening bilateral shoulders STG Duration 04/19/24 [facility] Goal (LTG) improve strength of shoulders to at least 4+/5 for improved function bilateral shoulders LTG Duration 06/17/24 1 Impairment unable to reach high enough for purposes of putting hearing aids in [facility] Goal (LTG) Improve shoulder function sufficient to allow patient to put in hearing aids with ease LTG Duration 06/17/24 Progress Towards Goals Progress Towards Goals Progressing Toward Goals Assessment Summary Assessment AAROM L shoulder 140, AROM 114 . Patient highly compliant to HEP, noting improvement in ability to open car door with decreased pain. Difficulty with lifting dishes especially over shoulder level. Physical Therapy Plan Frequency and Duration Frequency of Treatment 2x/Week Duration of treatment (weeks) 8 Plan of Care Start Date 03/19/24 Plan of Care End Date 05/17/24 Therapeutic Interventions Therapeutic Interventions Home Exercise Program,Manual Therapy,Patient/Caregiver Education,Self-Care/Home Management,Soft Tissue Mobilization,Taping, Therapeutic Activities, Therapeutic Exercises Modalities Cold Pack/Ice Massage,Electric Stimulation,Hot Packs, Infrared Therapy,Ultrasound Next Visit Focus/Plan Next Note Type Treatment Note Next Visit Plan Lat pulls with TB, trial functional door opening movement with TB. Continue shoulder ROM and strengthening as tolerated. Manual therapy and modalities PRN
--- NOTE | 2024-04-28 09:48 | PT.OTN ---
Current Diagnoses Pain in right shoulder (04/28/24) Pain in left shoulder (04/28/24) Abnormal posture (04/28/24) Weakness (04/28/24) Physical Therapy Treatment Note PT-OP-A Visit Information Start: 03/19/24 13:47 Freq: Status: Active Protocol: Document 04/28/24 09:02 SP (Rec: 04/28/24 09:53 SP [id number]) Out-Patient Physical Therapy Visit Information Visit Information Visit Type Treatment Note Visit Start Time 09:05 Visit Stop Time 09:48 Visit Number 10 Number of TYPE COPYIST Visits 1 Evaluation Information Evaluation Date 03/19/24 PT-OP-B Current Condition Start: 03/19/24 13:47 Freq: Status: Active Protocol: Document 04/22/24 10:46 SAK (Rec: 04/22/24 11:33 SAK [id number]) Current Condition History of Current Condition Onset Date 1+ yea Current Complaints bilateral shoulder pain History of Current Condition Several bad falls over the past year, but shoulders hurting before that. Most recently fell while doing balance exercises at home fractured pelvis last summer. Used a walker and cane, now uses hurry cane. Shoulder pain gradually worsening to the point she can't reach overhead or behind her back. Just got hearing aides and having difficulty putting in. Lays on back to sleep. Has to use oxygen at night. Couldn't do anything with her arms at cardiac rehab. For exercise patient doing SAFE exercise program, maintenance cardiac rehab (likes rowing machine the best) Prior Treatments and Tests no treatment. x-ray showed severe OA. PT-OP-C Subjective Start: 03/19/24 13:47 Freq: Status: Active Protocol: Document 04/28/24 09:02 SP (Rec: 04/28/24 09:53 SP [id number]) OP-PT Subjective Patient Comments Patient Comments Pt reports L shoulder feeling better, can't put up/take down items itself on high shelf by itself but can reach up there , still needs RUE added support. Pt states little nervous travelign by herself to family wedding. Has CPAP /c portable O2 and luggage to manage. PT-OP-F Manual Assessment Start: 03/19/24 13:47 Freq: Status: Active Protocol: Document 03/19/24 13:47 SAK (Rec: 03/24/24 08:43 SAK [id number]) Manual Assessments Soft Tissue Assessment Soft Tissue Mobility Assessment tightness fish UE, LS, pecs scalenes Joint Mobility Assessment Joint Mobility Assessment moderate to severe crepitus bilateral shoulders, gross decrease in joint mobility PT-OP-K Range of Motion Start: 03/19/24 13:47 Freq: Status: Active Protocol: Document 03/19/24 13:47 SAK (Rec: 03/19/24 14:33 [facility] [id number]) Cervical Spine Range of Motion Cervical Spine Active Comments mod decrease all motions Shoulder Goniometric Range of Motion Shoulder Left Flexion 122 Extension 10 Abduction 95 External Rotation at 0 degrees Abduction 10 Internal Rotation Behind Back (text) L4 Right Flexion 168 Extension 15 Abduction 170 External Rotation at 0 degrees Abduction 30 Internal Rotation Behind Back (text) T10 Elbow/Forearm Range of Motion Elbow/Forearm fish Elbow/Forearm ROM WFL Yes PT-OP-M Strength Start: 03/19/24 13:47 Freq: Status: Active Protocol: Document 03/19/24 13:47 [facility] (Rec: 03/19/24 14:33 [facility] [id number]) Shoulder Strength Shoulder Manual Muscle Testing fish Flexion 3- Fair- Extension 3- Fair- Abduction (C5) 3- Fair- Adduction 3+ Fair+ External Rotation 3- Fair- Internal Rotation 3- Fair- Elbow/Forearm Strength Elbow and Forearm Manual Muscle Testing Left Flexion (C6) 4+ Good+ Extension (C7) 4- Good- Right Flexion (C6) 5 Normal Extension (C7) 5 Normal PT-OP-Q Treatments Start: 03/19/24 13:47 Freq: Status: Active Protocol: Document 04/28/24 09:02 SP (Rec: 04/28/24 09:53 SP [id number]) Therapeutic Exercises Supine Exercises AAROM ER Equipment Used towel roll under arm Reps/Minutes 10x Comments 54 deg chest press Resistance wand Reps/Minutes 10x Comments crepitus L shld but not painful just grinding feeling FF Side bilateral Resistance dowel AAROM Reps/Minutes x10 reps Comments 10-150 deg, slight SA eccentric lowering less crepitus serratus press Side bilateral Equipment Used wand Reps/Minutes 10x Comments cued slower eccentric control Sitting Exercises pulleys Sitting Exercise Name flexion and scaption Side bilateral Reps/Minutes 5 min Standing Exercises wall slide Standing Exercise Name 1. slide up/down 2. lift off wall OH Side left Equipment Used towel Reps/Minutes 10x Comments reviewed HEP shoulder ER Standing Exercise Name 1. counter slide Equipment Used towel Reps/Minutes 10x Comments lacks full motion, cues for pain-free. Added to HEP Therapeutic Activity Therapeutic Activity Trek pole patterning Name 170 ft around clinic Comments gait 2pt, adjust proper height for her use traveling in August . Will bring in next tx to [place]io setting for self consistant adjustment proper height for her 38.5 to trek pole in PT from floor (check her poles next tx), [place]co [place]io with altagracia next tx and allow her practice collapse and put back to proper height. Rubber bottom inside hard surfaces, take off outside soft surfaces safety for stability if needed. Improved posture with trek poles vs SPC today. Manual Therapy Treatment Consent Patient gave verbal consent for manual Yes treatment Soft Tissue Mobilization L shld Body Location pec, deltoid, prox tricep Mobilization Type Cross-Friction,Rolling, Sustained Pressure,Other Intensity/Depth Moderate Body Position Hooklying Comments gentle STM, light pressure humeral IR/ER, elbow flex/ext PROM Joint Mobilizations L GJ Jt Direction inf & post glide Grade II Body Position Hooklying Self-Care/Home Management Treatment Education Patient Education Safety Other Education Discussion and adjustment for proper height Fish trek poles, suggested discussion /c airlines Cpap /c O2 transportation & storeage on airline for August travels, call your CPAP supplier and ask if can help find company near family out of state to assist her get any added supplies there needed covered by her insurance. ALso discussed speak with [facility] staff if can bring in her portable O2 to practice more confidence self use with guidence for future traveling in August. Time spent use trek poles, find proper height 38.5 top from floor with in PT trek poles. Discussed bring next tx work with PT/TYPE COPYIST for set up personal trek poles, [place]co [place] proper height and practice self collapse and put back proper height for I vs using SPC. Today adjusted lower height noted decreased UT and Shld elevation compensations, though wide base is little heavy/ slows advancement vs trek poles. PT-OP-R Modalities Start: 03/19/24 13:47 Freq: Status: Active Protocol: Document 04/15/24 13:00 SAK (Rec: 04/15/24 13:54 SAK [id number]) Hot Pack/Cold Pack Treatment Hot Pack Location L shoulder Patient Position Hooklying Patient Tolerance Good PT-OP-T Assessment and Plan Start: 03/19/24 13:47 Freq: Status: Active Protocol: Document 04/28/24 09:02 SP (Rec: 04/28/24 09:53 SP [id number]) Physical Therapy Assessment Goals 4 Impairment Quickdash UE disability index score 47% Short Term Goal (STG) decrease score to no greater than 37% as measure of improved shoulder function STG Duration 04/19/24 Technical Assoc Goal (LTG) decrease score to no greater than 25% as measure of improved shoulder function LTG Duration 06/17/24 3 Impairment painful driving Fdc Goal (LTG) Able to drive with minimal to no shoulder pain. 04/03/24: progressing 5/10 and has positioned hands 3 and 9 o 'clock to provide less pain and mostly uses RUE for turns and L UE guides wheel needed. 04/08/2024 Patient reports able to reach 12:00 on steering wheel. LTG Duration 06/17/24 progressing 04/03/24 2 Impairment weakness and decreased shoulder ROM Short Term Goal (STG) Patient to be instructed in HEP for purposes of ROM and strengthening bilateral shoulders STG Duration 04/19/24 Fdc Goal (LTG) improve strength of shoulders to at least 4+/5 for improved function bilateral shoulders LTG Duration 06/17/24 1 Impairment unable to reach high enough for purposes of putting hearing aids in Technical Assoc Goal (LTG) Improve shoulder function sufficient to allow patient to put in hearing aids with ease LTG Duration 06/17/24 Assessment Summary Assessment Pt improved 10-150 deg FF use cane. Extra time suggestions contacting personnel can call help CPAP traveling, ask/ set up with airlines assist transportation. She was able to progress wall slide BUE then lift off wall like reaching cupboard. Physical Therapy Plan Frequency and Duration Frequency of Treatment 2x/Week Duration of treatment (weeks) 8 Plan of Care Start Date 03/19/24 Plan of Care End Date 05/17/24 Therapeutic Interventions Therapeutic Interventions Home Exercise Program,Manual Therapy,Patient/Caregiver Education,Self-Care/Home Management,Soft Tissue Mobilization,Taping, Therapeutic Activities, Therapeutic Exercises Modalities Cold Pack/Ice Massage,Electric Stimulation,Hot Packs, Infrared Therapy,Ultrasound Next Visit Focus/Plan Next Note Type Treatment Note Next Visit Plan Update POC 3/ visit. Next tx: adjust personal trek poles and practice self collapse& set up for her height. POC: Lat pulls with TB, trial functional door opening movement with TB. Continue shoulder ROM and strengthening as tolerated. Manual therapy and modalities PRN
--- NOTE | 2024-04-30 10:28 | PT.OTN ---
Current Diagnoses Pain in right shoulder (04/30/24) Pain in left shoulder (04/30/24) Abnormal posture (04/30/24) Weakness (04/30/24) Physical Therapy Treatment Note PT-OP-A Visit Information Start: 03/19/24 13:47 Freq: Status: Active Protocol: Document 04/30/24 08:07 AB (Rec: 04/30/24 10:18 AB [id number]) Out-Patient Physical Therapy Visit Information Visit Information Visit Type Treatment Note Visit Start Time 08:17 Visit Stop Time 09:01 Visit Number 11 Number of READERS' ADVISORY SERVICE LIBRARIAN Visits 2 Evaluation Information Evaluation Date 03/19/24 PT-OP-B Current Condition Start: 03/19/24 13:47 Freq: Status: Active Protocol: Document 04/22/24 10:46 SAK (Rec: 04/22/24 11:33 SAK [id number]) Current Condition History of Current Condition Onset Date 1+ yea Current Complaints bilateral shoulder pain History of Current Condition Several bad falls over the past year, but shoulders hurting before that. Most recently fell while doing balance exercises at home fractured pelvis last summer. Used a walker and cane, now uses hurry cane. Shoulder pain gradually worsening to the point she can't reach overhead or behind her back. Just got hearing aides and having difficulty putting in. Lays on back to sleep. Has to use oxygen at night. Couldn't do anything with her arms at cardiac rehab. For exercise patient doing SAFE exercise program, maintenance cardiac rehab (likes rowing machine the best) Prior Treatments and Tests no treatment. x-ray showed severe OA. PT-OP-C Subjective Start: 03/19/24 13:47 Freq: Status: Active Protocol: Document 04/30/24 08:07 AB (Rec: 04/30/24 10:18 AB [id number]) OP-PT Subjective Patient Comments Patient Comments Patient reports she got a cramp in her thigh yesterday, lifting LE into car is painful today. Patient reports she is performing her shoulder exercises. Patient forgot to bring in treking poles today. AROM L shoulder flexion 127 deg start of session. PT-OP-F Manual Assessment Start: 03/19/24 13:47 Freq: Status: Active Protocol: Document 03/19/24 13:47 SAK (Rec: 03/24/24 08:43 SAK [id number]) Manual Assessments Soft Tissue Assessment Soft Tissue Mobility Assessment tightness pradeep UE, LS, pecs scalenes Joint Mobility Assessment Joint Mobility Assessment moderate to severe crepitus bilateral shoulders, gross decrease in joint mobility PT-OP-K Range of Motion Start: 03/19/24 13:47 Freq: Status: Active Protocol: Document 03/19/24 13:47 [facility] (Rec: 03/19/24 14:33 [facility] [id number]) Cervical Spine Range of Motion Cervical Spine Active Comments mod decrease all motions Shoulder Goniometric Range of Motion Shoulder Left Flexion 122 Extension 10 Abduction 95 External Rotation at 0 degrees Abduction 10 Internal Rotation Behind Back (text) L4 Right Flexion 168 Extension 15 Abduction 170 External Rotation at 0 degrees Abduction 30 Internal Rotation Behind Back (text) T10 Elbow/Forearm Range of Motion Elbow/Forearm pradeep Elbow/Forearm ROM WFL Yes PT-OP-M Strength Start: 03/19/24 13:47 Freq: Status: Active Protocol: Document 03/19/24 13:47 [facility] (Rec: 03/19/24 14:33 [facility] [id number]) Shoulder Strength Shoulder Manual Muscle Testing pradeep Flexion 3- Fair- Extension 3- Fair- Abduction (C5) 3- Fair- Adduction 3+ Fair+ External Rotation 3- Fair- Internal Rotation 3- Fair- Elbow/Forearm Strength Elbow and Forearm Manual Muscle Testing Left Flexion (C6) 4+ Good+ Extension (C7) 4- Good- Right Flexion (C6) 5 Normal Extension (C7) 5 Normal PT-OP-Q Treatments Start: 03/19/24 13:47 Freq: Status: Active Protocol: Document 04/30/24 08:07 AB (Rec: 04/30/24 10:18 AB [id number]) Therapeutic Exercises Supine Exercises AAROM ER Equipment Used towel roll under arm Reps/Minutes 10x chest e commerce marketing manager Side bilateral Reps/Minutes 2 min Comments verbal and tactile cues FF Side bilateral Resistance AROM then level one band very gentle held lightly ecc Reps/Minutes x10 reps each Comments monitored for pain serratus press Side bilateral Equipment Used wand Reps/Minutes 10x Comments reports no increased pain Standing Exercises Isometric reactive Standing Exercise Name IR and ER Side left Resistance level one peach band Reps/Minutes 5 X each Comments verbal and visual cues rows Standing Exercise Name row and High row Side bilateral Resistance Tb #3 (latex free) Reps/Minutes x10 Comments cued posture and Rhomboid Manual Therapy Treatment Soft Tissue Mobilization neck Body Location B UT, levat scap, lat edge of clavicle/scalene Mobilization Type Cross-Friction,Rolling, Sustained Pressure Intensity/Depth Moderate Body Position Hooklying L shld Body Location pec, deltoid, Mobilization Type Cross-Friction,Rolling, Sustained Pressure,Other Intensity/Depth Moderate Body Position Hooklying Comments gentle STM, light pressure humeral IR/ER, elbow flex/ext PROM Joint Mobilizations L GJ Jt Direction inf & post glide Grade II Body Position Hooklying L scapulothoracic Joint bilateral Direction into dep and add Grade IV Body Position Sidelying Reps/Duration X10 each direct each LE PT-OP-R Modalities Start: 03/19/24 13:47 Freq: Status: Active Protocol: Document 04/15/24 13:00 SAK (Rec: 04/15/24 13:54 SAK [id number]) Hot Pack/Cold Pack Treatment Hot Pack Location L shoulder Patient Position Hooklying Patient Tolerance Good PT-OP-T Assessment and Plan Start: 03/19/24 13:47 Freq: Status: Active Protocol: Document 04/30/24 08:07 AB (Rec: 04/30/24 10:18 AB [id number]) Physical Therapy Assessment Goals 4 Impairment Quickdash UE disability index score 47% Short Term Goal (STG) decrease score to no greater than 37% as measure of improved shoulder function STG Duration 04/19/24 Alf Goal (LTG) decrease score to no greater than 25% as measure of improved shoulder function LTG Duration 06/17/24 3 Impairment painful driving Alf Goal (LTG) Able to drive with minimal to no shoulder pain. 04/03/24: progressing 5/10 and has positioned hands 3 and 9 o 'clock to provide less pain and mostly uses RUE for turns and L UE guides wheel needed. 04/08/2024 Patient reports able to reach 12:00 on steering wheel. LTG Duration 06/17/24 progressing 04/03/24 2 Impairment weakness and decreased shoulder ROM Short Term Goal (STG) Patient to be instructed in HEP for purposes of ROM and strengthening bilateral shoulders STG Duration 04/19/24 Alf Goal (LTG) improve strength of shoulders to at least 4+/5 for improved function bilateral shoulders LTG Duration 06/17/24 1 Impairment unable to reach high enough for purposes of putting hearing aids in Page Technician Goal (LTG) Improve shoulder function sufficient to allow patient to put in hearing aids with ease LTG Duration 06/17/24 Assessment Summary Assessment AROM 134 deg initiated in flexion, moves into scaption pattern end ROM L shoulder, with patient reporting no pain end of session. Physical Therapy Plan Frequency and Duration Frequency of Treatment 2x/Week Duration of treatment (weeks) 8 Plan of Care Start Date 03/19/24 Plan of Care End Date 05/17/24 Next Visit Focus/Plan Next Note Type Treatment Note Next Visit Plan Update POC 3/ visit. Next tx: adjust personal trek poles and practice self collapse& set up for her height. POC: Lat pulls with TB, trial functional door opening movement with TB. Continue shoulder ROM and strengthening as tolerated. Manual therapy and modalities PRN
--- NOTE | 2024-05-11 16:28 | PT.OTRE ---
Current Diagnoses Pain in right shoulder (05/11/24) Pain in left shoulder (05/11/24) Abnormal posture (05/11/24) Weakness (05/11/24) Past Medical History (Last Reviewed 10/14/23 @ 16:37 by Jayla Fraser DO) Atrial fibrillation (2013) Atrial fibrillation with RVR COPD (chronic obstructive pulmonary disease) Easy bruisability History of cardioversion Hypertension Lung cancer (2006) Osteoarthritis Osteoporosis (2015) Ovarian cancer (1994) Raynauds syndrome (12/14/10) Uterine cancer (1994) Surgical History (Last Reviewed 10/14/23 @ 16:37 by Jayla Fraser DO) Anesthesia History of bilateral salpingo-oophorectomy (BSO) History of breast augmentation (1992) History of hip replacement (01/2013) History of oophorectomy (1994) History of pneumonectomy (05/23/08) Status post hysterectomy (1994) Visit Care Team Role Provider Type Rosio Puckett MD Attending Provider Physician Family Provider Primary Care Provider Referring Provider Specialty: [facility] Address: [address] [place] [address] Email: [email or web address] Physical Therapy Re-Evaluation PT-OP-A Visit Information Start: 03/19/24 13:47 Freq: Status: Active Protocol: Document 05/11/24 15:24 SAK (Rec: 05/11/24 16:28 [facility] [id number]) Out-Patient Physical Therapy Visit Information Visit Information Visit Type Treatment Note Visit Start Time 15:20 Visit Stop Time 16:00 Visit Number 12 Number of MARKETING DIRECTOR ASSISTED LIVING Visits 0 Evaluation Information Evaluation Date 03/19/24 Precautions Precautions osteoporosis PT-OP-B Current Condition Start: 03/19/24 13:47 Freq: Status: Active Protocol: Document 05/11/24 15:24 SAK (Rec: 05/11/24 16:28 SAK [id number]) Current Condition History of Current Condition Onset Date 1+ yea Current Complaints bilateral shoulder pain History of Current Condition Several bad falls over the past year, but shoulders hurting before that. Most recently fell while doing balance exercises at home fractured pelvis last summer. Used a walker and cane, now uses hurry cane. Shoulder pain gradually worsening to the point she can't reach overhead or behind her back. Just got hearing aides and having difficulty putting in. Lays on back to sleep. Has to use oxygen at night. Couldn't do anything with her arms at cardiac rehab. For exercise patient doing SAFE exercise program, maintenance cardiac rehab (likes rowing machine the best) Prior Treatments and Tests no treatment. x-ray showed severe OA. PT-OP-C Subjective Start: 03/19/24 13:47 Freq: Status: Active Protocol: Document 05/11/24 15:24 [facility] (Rec: 05/11/24 16:28 [facility] [id number]) OP-PT Subjective Patient Comments Patient Comments Reports lifting her arms higher, PT helping. Forgot trekking poles. AROM L 141 to start. PT-OP-F Manual Assessment Start: 03/19/24 13:47 Freq: Status: Active Protocol: Document 03/19/24 13:47 [facility] (Rec: 03/24/24 08:43 [facility] [id number]) Manual Assessments Soft Tissue Assessment Soft Tissue Mobility Assessment tightness pradeep UE, LS, pecs scalenes Joint Mobility Assessment Joint Mobility Assessment moderate to severe crepitus bilateral shoulders, gross decrease in joint mobility PT-OP-K Range of Motion Start: 03/19/24 13:47 Freq: Status: Active Protocol: Document 03/19/24 13:47 [facility] (Rec: 03/19/24 14:33 [facility] [id number]) Cervical Spine Range of Motion Cervical Spine Active Comments mod decrease all motions Shoulder Goniometric Range of Motion Shoulder Measured in Degrees Left Flexion 122 Extension 10 Abduction 95 External Rotation at 0 degrees Abduction 10 Internal Rotation Behind Back (text) L4 Right Flexion 168 Extension 15 Abduction 170 External Rotation at 0 degrees Abduction 30 Internal Rotation Behind Back (text) T10 Elbow/Forearm Range of Motion Elbow/Forearm Measured in Degrees pradeep Elbow/Forearm ROM WFL Yes PT-OP-M Strength Start: 03/19/24 13:47 Freq: Status: Active Protocol: Document 03/19/24 13:47 [facility] (Rec: 03/19/24 14:33 [facility] [id number]) Shoulder Strength Shoulder Manual Muscle Testing pradeep Flexion 3- Fair- Extension 3- Fair- Abduction (C5) 3- Fair- Adduction 3+ Fair+ External Rotation 3- Fair- Internal Rotation 3- Fair- Elbow/Forearm Strength Elbow and Forearm Manual Muscle Testing Left Flexion (C6) 4+ Good+ Extension (C7) 4- Good- Right Flexion (C6) 5 Normal Extension (C7) 5 Normal PT-OP-Q Treatments Start: 03/19/24 13:47 Freq: Status: Active Protocol: Document 05/11/24 15:24 [facility] (Rec: 05/11/24 16:28 [facility]AK [id number]) Therapeutic Exercises Supine Exercises AAROM ER Equipment Used towel roll under arm Reps/Minutes 10x Comments 58 deg chest press Resistance wand Reps/Minutes 10x Comments crepitus L shld but not painful just grinding feeling chest dental laboratory assistant Side bilateral Reps/Minutes 2 min Comments verbal and tactile cues serratus press Side bilateral Equipment Used wand Reps/Minutes 10x Comments reports no increased pain Sitting Exercises sh ER Side left Equipment Used wand Reps/Minutes 10x 5 pulleys Sitting Exercise Name flexion and scaption Side bilateral Reps/Minutes 5 min Standing Exercises warm ups Standing Exercise Name sh IR/ER arms at sides, shoulder rolls pradeep and unil Reps/Minutes 10x ea rows Standing Exercise Name row and High row Side bilateral Resistance Tb #3 (latex free) Reps/Minutes x10 Comments cued posture and Rhomboid Manual Therapy Treatment Soft Tissue Mobilization neck Body Location B UT, levat scap, lat edge of clavicle/scalene Mobilization Type Cross-Friction,Rolling, Sustained Pressure Intensity/Depth Moderate Body Position Hooklying L shld Body Location pec, deltoid, Mobilization Type Cross-Friction,Rolling, Sustained Pressure,Other Intensity/Depth Moderate Body Position Hooklying Comments gentle STM, light pressure humeral IR/ER, elbow flex/ext PROM Joint Mobilizations L GJ Jt Direction inf & post glide Grade II Body Position Hooklying L scapulothoracic Joint bilateral Direction into dep and add Grade IV Body Position Sidelying Reps/Duration X10 each direct each LE Self-Care/Home Management Treatment Education Other Education Patient to bring spotflux next session. PT-OP-R Modalities Start: 03/19/24 13:47 Freq: Status: Active Protocol: Document 04/15/24 13:00 [facility] (Rec: 04/15/24 13:54 [facility] [id number]) Hot Pack/Cold Pack Treatment Hot Pack Location L shoulder Patient Position Hooklying Patient Tolerance Good PT-OP-T Assessment and Plan Start: 03/19/24 13:47 Freq: Status: Active Protocol: Document 05/11/24 15:24 SAK (Rec: 05/11/24 16:28 [facility] [id number]) Physical Therapy Assessment Goals 4 Impairment Quickdash UE disability index score 47% Short Term Goal (STG) decrease score to no greater than 37% as measure of improved shoulder function 05/11/24: 25%, goal met STG Duration goal met [facility] Goal (LTG) decrease score to no greater than 25% as measure of improved shoulder function 05/11/24: 25% goal met LTG Duration goal met 3 Impairment painful driving Associate Pastor Goal (LTG) Able to drive with minimal to no shoulder pain. 04/03/24: progressing 5/10 and has positioned hands 3 and 9 o 'clock to provide less pain and mostly uses RUE for turns and L UE guides wheel needed. 04/08/2024 Patient reports able to reach 12:00 on steering wheel. 05/11/24: reports minimal pain with driving, still can't use left UE as much as right LTG Duration 06/17/24 2 Impairment weakness and decreased shoulder ROM Short Term Goal (STG) Patient to be instructed in HEP for purposes of ROM and strengthening bilateral shoulders 05/11/24: goal met, ongoing progression STG Duration goal met [facility]ci Goal (LTG) improve strength of shoulders to at least 4+/5 for improved function bilateral shoulders 05/11/24: shld flex 167 R 144 L , abd 159 R 146 L, ER 62 R 44 L, IR WNL. Strength right 4/5 except ER 4-/4, left 4-/5 except ER 3-/5 w/in available ROM LTG Duration 06/17/24 1 Impairment unable to reach high enough for purposes of putting hearing aids in Associate Pastor Goal (LTG) Improve shoulder function sufficient to allow patient to put in hearing aids with ease 05/11/24: now able to put hearing aides in with ease. Goal met LTG Duration goal met Progress Towards Goals Progress Towards Goals Progressing Toward Goals Assessment Summary Assessment Left shoulder flexion 144 degrees after warm-up exercises, making excellent progress toward PT goals. Would benefit from 2 further appointments to help continue to work on strengthening and ROM to fully achieve her PT goals and transition to independent HEP. Physical Therapy Plan Frequency and Duration Frequency of Treatment 2x/Week Duration of treatment (weeks) 2 Plan of Care Start Date 05/11/24 Plan of Care End Date 05/25/24 Therapeutic Interventions Therapeutic Interventions Home Exercise Program,Manual Therapy,Patient/Caregiver Education,Self-Care/Home Management,Soft Tissue Mobilization,Taping, Therapeutic Activities, Therapeutic Exercises Modalities Cold Pack/Ice Massage,Electric Stimulation,Hot Packs, Infrared Therapy,Ultrasound Next Visit Focus/Plan Next Note Type Treatment Note Next Visit Plan Adjust pt. trekking poles and practice self set up if brings . Continue shoulder ROM and strengthing, updating HEP as indicated. Manual therapy and modalities PRN.
--- NOTE | 2024-05-11 16:28 | PT.OPPOC ---
Physical, Occupational & Speech Therapy At [facility] Current Diagnoses Pain in right shoulder (05/11/24) Pain in left shoulder (05/11/24) Abnormal posture (05/11/24) Weakness (05/11/24) Visit Care Team Role Provider Type Rosio Puckett MD Attending Provider Physician Family Provider Primary Care Provider Referring Provider Specialty: Family Practice Address: [address] [place] [address], [facility] [place], [facility] Email: [email or web address] Plan Of Care PT-OP-B Current Condition Start: 03/19/24 13:47 Freq: Status: Active Protocol: Document 05/11/24 15:24 SAK (Rec: 05/11/24 16:28 SAK [id number]) Current Condition History of Current Condition Onset Date 1+ yea Current Complaints bilateral shoulder pain History of Current Condition Several bad falls over the past year, but shoulders hurting before that. Most recently fell while doing balance exercises at home fractured pelvis last summer. Used a walker and cane, now uses hurry cane. Shoulder pain gradually worsening to the point she can't reach overhead or behind her back. Just got hearing aides and having difficulty putting in. Lays on back to sleep. Has to use oxygen at night. Couldn't do anything with her arms at cardiac rehab. For exercise patient doing SAFE exercise program, maintenance cardiac rehab (likes rowing machine the best) Prior Treatments and Tests no treatment. x-ray showed severe OA. PT-OP-T Assessment and Plan Start: 03/19/24 13:47 Freq: Status: Active Protocol: Document 05/11/24 15:24 SAK (Rec: 05/11/24 16:28 SAK [id number]) Physical Therapy Assessment Goals 4 Impairment Quickdash UE disability index score 47% Short Term Goal (STG) decrease score to no greater than 37% as measure of improved shoulder function 05/11/24: 25%, goal met STG Duration goal met Mcc Goal (LTG) decrease score to no greater than 25% as measure of improved shoulder function 05/11/24: 25% goal met LTG Duration goal met 3 Impairment painful driving Supervisor Wet Pour Goal (LTG) Able to drive with minimal to no shoulder pain. 04/03/24: progressing 5/10 and has positioned hands 3 and 9 o 'clock to provide less pain and mostly uses RUE for turns and L UE guides wheel needed. 04/08/2024 Patient reports able to reach 12:00 on steering wheel. 05/11/24: reports minimal pain with driving, still can't use left UE as much as right LTG Duration 06/17/24 2 Impairment weakness and decreased shoulder ROM Short Term Goal (STG) Patient to be instructed in HEP for purposes of ROM and strengthening bilateral shoulders 05/11/24: goal met, ongoing progression STG Duration goal met Mcc Goal (LTG) improve strength of shoulders to at least 4+/5 for improved function bilateral shoulders 05/11/24: shld flex 167 R 144 L , abd 159 R 146 L, ER 62 R 44 L, IR WNL. Strength right 4/5 except ER 4-/4, left 4-/5 except ER 3-/5 w/in available ROM LTG Duration 06/17/24 1 Impairment unable to reach high enough for purposes of putting hearing aids in Mcc Goal (LTG) Improve shoulder function sufficient to allow patient to put in hearing aids with ease 05/11/24: now able to put hearing aides in with ease. Goal met LTG Duration goal met Progress Towards Goals Progress Towards Goals Progressing Toward Goals Assessment Summary Assessment Left shoulder flexion 144 degrees after warm-up exercises, making excellent progress toward PT goals. Would benefit from 2 further appointments to help continue to work on strengthening and ROM to fully achieve her PT goals and transition to independent HEP. Physical Therapy Plan Frequency and Duration Frequency of Treatment 2x/Week Duration of treatment (weeks) 2 Plan of Care Start Date 05/11/24 Plan of Care End Date 05/25/24 Therapeutic Interventions Therapeutic Interventions Home Exercise Program,Manual Therapy,Patient/Caregiver Education,Self-Care/Home Management,Soft Tissue Mobilization,Taping, Therapeutic Activities, Therapeutic Exercises Modalities Cold Pack/Ice Massage,Electric Stimulation,Hot Packs, Infrared Therapy,Ultrasound Next Visit Focus/Plan Next Note Type Treatment Note Next Visit Plan Adjust pt. trekking poles and practice self set up if brings . Continue shoulder ROM and strengthing, updating HEP as indicated. Manual therapy and modalities PRN. Plan of Care Dates Plan of Care Start Date 05/11/24 Plan of Care End Date 05/25/24 Electronically Signed by: Janae Chen, PT 05/11/24 6683 If you are in agreement with this Plan of Care, please return a signed and dated copy. I have reviewed this Plan of Care and certify that the skilled therapy services above are required to meet the patient?s needs. Physician Signature Date Printed Name and Credentials Clinical Instructor Signature Printed Name and Credentials
--- NOTE | 2024-05-14 09:37 | PT.OTN ---
Current Diagnoses Pain in right shoulder (05/14/24) Pain in left shoulder (05/14/24) Abnormal posture (05/14/24) Weakness (05/14/24) Physical Therapy Treatment Note PT-OP-A Visit Information Start: 03/19/24 13:47 Freq: Status: Active Protocol: Document 05/14/24 09:02 [facility] (Rec: 05/14/24 09:37 [facility] [id number]) Out-Patient Physical Therapy Visit Information Visit Information Visit Type Treatment Note Visit Start Time 09:00 Visit Stop Time 09:43 Visit Number 13 Number of CLINICAL SAFETY SPECIALIST Visits 0 Evaluation Information Evaluation Date 03/19/24 Precautions Precautions osteoporosis PT-OP-B Current Condition Start: 03/19/24 13:47 Freq: Status: Active Protocol: Document 05/14/24 09:02 [facility] (Rec: 05/14/24 09:37 [facility] [id number]) Current Condition History of Current Condition Onset Date 1+ yea Current Complaints bilateral shoulder pain History of Current Condition Several bad falls over the past year, but shoulders hurting before that. Most recently fell while doing balance exercises at home fractured pelvis last summer. Used a walker and cane, now uses hurry cane. Shoulder pain gradually worsening to the point she can't reach overhead or behind her back. Just got hearing aides and having difficulty putting in. Lays on back to sleep. Has to use oxygen at night. Couldn't do anything with her arms at cardiac rehab. For exercise patient doing SAFE exercise program, maintenance cardiac rehab (likes rowing machine the best) Prior Treatments and Tests no treatment. x-ray showed severe OA. PT-OP-C Subjective Start: 03/19/24 13:47 Freq: Status: Active Protocol: Document 05/14/24 09:02 [facility] (Rec: 05/14/24 09:37 [facility] [id number]) OP-PT Subjective Patient Comments Patient Comments Brought trekking poles for evaluation. AROM L shoulder to start. Compliant to HEP, uses slab stripper bands for theraband exercises. States can't use weights yet. PT-OP-F Manual Assessment Start: 03/19/24 13:47 Freq: Status: Active Protocol: Document 03/19/24 13:47 [facility] (Rec: 03/24/24 08:43 [facility] [id number]) Manual Assessments Soft Tissue Assessment Soft Tissue Mobility Assessment tightness pradeep UE, LS, pecs scalenes Joint Mobility Assessment Joint Mobility Assessment moderate to severe crepitus bilateral shoulders, gross decrease in joint mobility PT-OP-K Range of Motion Start: 03/19/24 13:47 Freq: Status: Active Protocol: Document 03/19/24 13:47 [facility] (Rec: 03/19/24 14:33 [facility] [id number]) Cervical Spine Range of Motion Cervical Spine Active Comments mod decrease all motions Shoulder Goniometric Range of Motion Shoulder Left Flexion 122 Extension 10 Abduction 95 External Rotation at 0 degrees Abduction 10 Internal Rotation Behind Back (text) L4 Right Flexion 168 Extension 15 Abduction 170 External Rotation at 0 degrees Abduction 30 Internal Rotation Behind Back (text) T10 Elbow/Forearm Range of Motion Elbow/Forearm pradeep Elbow/Forearm ROM WFL Yes PT-OP-M Strength Start: 03/19/24 13:47 Freq: Status: Active Protocol: Document 03/19/24 13:47 [facility] (Rec: 03/19/24 14:33 [facility] [id number]) Shoulder Strength Shoulder Manual Muscle Testing pradeep Flexion 3- Fair- Extension 3- Fair- Abduction (C5) 3- Fair- Adduction 3+ Fair+ External Rotation 3- Fair- Internal Rotation 3- Fair- Elbow/Forearm Strength Elbow and Forearm Manual Muscle Testing Left Flexion (C6) 4+ Good+ Extension (C7) 4- Good- Right Flexion (C6) 5 Normal Extension (C7) 5 Normal PT-OP-Q Treatments Start: 03/19/24 13:47 Freq: Status: Active Protocol: Document 05/14/24 09:02 [facility] (Rec: 05/14/24 09:37 [facility] [id number]) Therapeutic Exercises Supine Exercises AAROM ER Equipment Used towel roll under arm Reps/Minutes 10x Comments 64 deg chest press Resistance wand Reps/Minutes 10x Comments crepitus L shld but not painful just grinding feeling FF Side bilateral Resistance wand Reps/Minutes x10 reps each Comments monitored for pain Sitting Exercises sh ER Side left Equipment Used wand Reps/Minutes 10x 5 Comments 54 deg pulleys Sitting Exercise Name flexion and scaption Side bilateral Reps/Minutes 5 min Standing Exercises warm ups Standing Exercise Name sh IR/ER arms at sides, shoulder rolls pradeep and unil Reps/Minutes 10x ea Manual Therapy Treatment Soft Tissue Mobilization neck Body Location B UT, levat scap, lat edge of clavicle/scalene Mobilization Type Cross-Friction,Rolling, Sustained Pressure Intensity/Depth Moderate Body Position Hooklying L shld Body Location pec, deltoid, Mobilization Type Cross-Friction,Rolling, Sustained Pressure,Other Intensity/Depth Moderate Body Position Hooklying Comments gentle STM, light pressure humeral IR/ER, elbow flex/ext PROM Joint Mobilizations L GJ Jt Direction inf & post glide Grade II Body Position Hooklying L scapulothoracic Joint bilateral Direction into dep and add Grade IV Body Position Sidelying Reps/Duration X10 each direct each LE PT-OP-R Modalities Start: 03/19/24 13:47 Freq: Status: Active Protocol: Document 04/15/24 13:00 [facility] (Rec: 04/15/24 13:54 [facility] [id number]) Hot Pack/Cold Pack Treatment Hot Pack Location L shoulder Patient Position Hooklying Patient Tolerance Good PT-OP-T Assessment and Plan Start: 03/19/24 13:47 Freq: Status: Active Protocol: Document 05/14/24 09:02 [facility] (Rec: 05/14/24 09:37 [facility] [id number]) Physical Therapy Assessment Goals 4 Impairment Quickdash UE disability index score 47% Short Term Goal (STG) decrease score to no greater than 37% as measure of improved shoulder function 05/11/24: 25%, goal met STG Duration goal met Swat Team Member Goal (LTG) decrease score to no greater than 25% as measure of improved shoulder function 05/11/24: 25% goal met LTG Duration goal met 3 Impairment painful driving Swat Team Member Goal (LTG) Able to drive with minimal to no shoulder pain. 04/03/24: progressing 5/10 and has positioned hands 3 and 9 o 'clock to provide less pain and mostly uses RUE for turns and L UE guides wheel needed. 04/08/2024 Patient reports able to reach 12:00 on steering wheel. 05/11/24: reports minimal pain with driving, still can't use left UE as much as right LTG Duration 06/17/24 2 Impairment weakness and decreased shoulder ROM Short Term Goal (STG) Patient to be instructed in HEP for purposes of ROM and strengthening bilateral shoulders 05/11/24: goal met, ongoing progression STG Duration goal met Swat Team Member Goal (LTG) improve strength of shoulders to at least 4+/5 for improved function bilateral shoulders 05/11/24: shld flex 167 R 144 L , abd 159 R 146 L, ER 62 R 44 L, IR WNL. Strength right 4/5 except ER 4-/4, left 4-/5 except ER 3-/5 w/in available ROM LTG Duration 06/17/24 1 Impairment unable to reach high enough for purposes of putting hearing aids in Swat Team Member Goal (LTG) Improve shoulder function sufficient to allow patient to put in hearing aids with ease 05/11/24: now able to put hearing aides in with ease. Goal met LTG Duration goal met Progress Towards Goals Progress Towards Goals Progressing Toward Goals Assessment Summary Assessment Left shoulder function continues to improve, per patient report gets better as day goes along. ER to 64 deg supine, FF 156 supine. Compliant to HEP. Good progress. Should be ready for discharge after next session. Yolis bicep curl with 1# weights today Physical Therapy Plan Frequency and Duration Frequency of Treatment 2x/Week Duration of treatment (weeks) 2 Plan of Care Start Date 05/11/24 Plan of Care End Date 05/25/24 Therapeutic Interventions Therapeutic Interventions Home Exercise Program,Manual Therapy,Patient/Caregiver Education,Self-Care/Home Management,Soft Tissue Mobilization,Taping, Therapeutic Activities, Therapeutic Exercises Modalities Cold Pack/Ice Massage,Electric Stimulation,Hot Packs, Infrared Therapy,Ultrasound Next Visit Focus/Plan Next Note Type Treatment Note Next Visit Plan Continue left shoulder rehab; ROM and strengthening, manual therapy
--- NOTE | 2024-05-21 16:00 | PT.OTN ---
Current Diagnoses Pain in right shoulder (05/21/24) Pain in left shoulder (05/21/24) Abnormal posture (05/21/24) Weakness (05/21/24) Physical Therapy Treatment Note PT-OP-A Visit Information Start: 03/19/24 13:47 Freq: Status: Active Protocol: Document 05/21/24 13:48 [facility] (Rec: 05/21/24 14:31 [facility] [id number]) Out-Patient Physical Therapy Visit Information Visit Information Visit Type Treatment Note Visit Start Time 13:49 Visit Stop Time 09:43 Visit Number 13 Number of CONCESSION ATTENDANT Visits 0 Evaluation Information Evaluation Date 03/19/24 Precautions Precautions osteoporosis PT-OP-B Current Condition Start: 03/19/24 13:47 Freq: Status: Active Protocol: Document 05/21/24 13:48 [facility] (Rec: 05/21/24 14:31 [facility] [id number]) Current Condition History of Current Condition Onset Date 1+ yea Current Complaints bilateral shoulder pain History of Current Condition Several bad falls over the past year, but shoulders hurting before that. Most recently fell while doing balance exercises at home fractured pelvis last summer. Used a walker and cane, now uses hurry cane. Shoulder pain gradually worsening to the point she can't reach overhead or behind her back. Just got hearing aides and having difficulty putting in. Lays on back to sleep. Has to use oxygen at night. Couldn't do anything with her arms at cardiac rehab. For exercise patient doing SAFE exercise program, maintenance cardiac rehab (likes rowing machine the best) Prior Treatments and Tests no treatment. x-ray showed severe OA. PT-OP-C Subjective Start: 03/19/24 13:47 Freq: Status: Active Protocol: Document 05/21/24 13:48 [facility] (Rec: 05/21/24 14:31 [facility] [id number]) OP-PT Subjective Patient Comments Patient Comments Doing HEP. Pain there but better than it was. Using pulleys. PT-OP-F Manual Assessment Start: 03/19/24 13:47 Freq: Status: Active Protocol: Document 03/19/24 13:47 [facility] (Rec: 03/24/24 08:43 [facility] [id number]) Manual Assessments Soft Tissue Assessment Soft Tissue Mobility Assessment tightness pradeep UE, LS, pecs scalenes Joint Mobility Assessment Joint Mobility Assessment moderate to severe crepitus bilateral shoulders, gross decrease in joint mobility PT-OP-K Range of Motion Start: 03/19/24 13:47 Freq: Status: Active Protocol: Document 03/19/24 13:47 [facility] (Rec: 03/19/24 14:33 [facility] [id number]) Cervical Spine Range of Motion Cervical Spine Active Comments mod decrease all motions Shoulder Goniometric Range of Motion Shoulder Left Flexion 122 Extension 10 Abduction 95 External Rotation at 0 degrees Abduction 10 Internal Rotation Behind Back (text) L4 Right Flexion 168 Extension 15 Abduction 170 External Rotation at 0 degrees Abduction 30 Internal Rotation Behind Back (text) T10 Elbow/Forearm Range of Motion Elbow/Forearm pradeep Elbow/Forearm ROM WFL Yes PT-OP-M Strength Start: 03/19/24 13:47 Freq: Status: Active Protocol: Document 03/19/24 13:47 [facility] (Rec: 03/19/24 14:33 [facility] [id number]) Shoulder Strength Shoulder Manual Muscle Testing pradeep Flexion 3- Fair- Extension 3- Fair- Abduction (C5) 3- Fair- Adduction 3+ Fair+ External Rotation 3- Fair- Internal Rotation 3- Fair- Elbow/Forearm Strength Elbow and Forearm Manual Muscle Testing Left Flexion (C6) 4+ Good+ Extension (C7) 4- Good- Right Flexion (C6) 5 Normal Extension (C7) 5 Normal PT-OP-Q Treatments Start: 03/19/24 13:47 Freq: Status: Active Protocol: Document 05/21/24 13:48 [facility] (Rec: 05/21/24 14:31 [facility] [id number]) Therapeutic Exercises Sitting Exercises warm ups Sitting Exercise Name shld rolls, squeezes, protr, IR/ER sh ER Side left Equipment Used L1 TB Reps/Minutes 10x 5 Comments 54 deg pulleys Sitting Exercise Name flexion and scaption Side bilateral Reps/Minutes 5 min Standing Exercises warm ups Standing Exercise Name sh IR/ER arms at sides, shoulder rolls pradeep and unil Reps/Minutes 10x ea Manual Therapy Treatment Soft Tissue Mobilization neck Body Location B UT, levat scap, lat edge of clavicle/scalene Mobilization Type Cross-Friction,Rolling, Sustained Pressure Intensity/Depth Moderate Body Position Hooklying L shld Body Location pec, deltoid, Mobilization Type Cross-Friction,Rolling, Sustained Pressure,Other Intensity/Depth Moderate Body Position Hooklying Comments gentle STM, light pressure humeral IR/ER, elbow flex/ext PROM Joint Mobilizations L GJ Jt Direction inf & post glide Grade II Body Position Hooklying L scapulothoracic Joint bilateral Direction into dep and add Grade IV Body Position Sidelying Reps/Duration X10 each direct each LE Self-Care/Home Management Treatment Education Other Education open book HO issued after trial today PT-OP-R Modalities Start: 03/19/24 13:47 Freq: Status: Active Protocol: Document 04/15/24 13:00 [facility] (Rec: 04/15/24 13:54 [facility] [id number]) Hot Pack/Cold Pack Treatment Hot Pack Location L shoulder Patient Position Hooklying Patient Tolerance Good PT-OP-T Assessment and Plan Start: 03/19/24 13:47 Freq: Status: Active Protocol: Document 05/21/24 13:48 [facility] (Rec: 05/21/24 14:31 [facility] [id number]) Physical Therapy Assessment Goals 4 Impairment Quickdash UE disability index score 47% Short Term Goal (STG) decrease score to no greater than 37% as measure of improved shoulder function 05/11/24: 25%, goal met STG Duration goal met [employer] Chief Goal (LTG) decrease score to no greater than 25% as measure of improved shoulder function 05/11/24: 25% goal met LTG Duration goal met 3 Impairment painful driving Prison Goal (LTG) Able to drive with minimal to no shoulder pain. 04/03/24: progressing 5/10 and has positioned hands 3 and 9 o 'clock to provide less pain and mostly uses RUE for turns and L UE guides wheel needed. 04/08/2024 Patient reports able to reach 12:00 on steering wheel. 05/11/24: reports minimal pain with driving, still can't use left UE as much as right LTG Duration 06/17/24 2 Impairment weakness and decreased shoulder ROM Short Term Goal (STG) Patient to be instructed in HEP for purposes of ROM and strengthening bilateral shoulders 05/11/24: goal met, ongoing progression STG Duration goal met [employer] Officer Chief Goal (LTG) improve strength of shoulders to at least 4+/5 for improved function bilateral shoulders 05/11/24: shld flex 167 R 144 L , abd 159 R 146 L, ER 62 R 44 L, IR WNL. Strength right 4/5 except ER 4-/4, left 4-/5 except ER 3-/5 w/in available ROM LTG Duration 06/17/24 1 Impairment unable to reach high enough for purposes of putting hearing aids in Prison Goal (LTG) Improve shoulder function sufficient to allow patient to put in hearing aids with ease 05/11/24: now able to put hearing aides in with ease. Goal met LTG Duration goal met Progress Towards Goals Progress Towards Goals Progressing Toward Goals,Goals Met Assessment Summary Assessment Left shoulder function continues to improve, per patient report gets better as day goes along. ER to 64 deg supine, FF 171 supine. Compliant to HEP. Good progress, goals mostly met. Patient reaquesting discharge from PT, do HEP on own. Physical Therapy Plan Discharge Physical Therapy Discharge Reasons Goals Met
== END 2024-05-27 15:41 | disposition home or self-care (01) ==
LOC: PHYS 13:45
PROVIDERS: Family Provider Family Medicine; PCP Family Medicine; Referring Provider Family Medicine; Visit Provider Family Medicine
DX: M25.511 Pain in right shoulder (principal); M25.512 Pain in left shoulder; R53.1 Weakness; R29.3 Abnormal posture
CPT/HCPCS: 97110; 97116; 97140; 97162; 97535

== ENCOUNTER → 2024-06-09 10:28 | Outpatient (CLI) | payer MEDICARE, OTHER, SELFPAY ==
[2024-06-08 10:44] VITALS: BMI 19.0
--- NOTE | 2024-06-09 10:29 | DI.US.S_ITS ---
US breast LT limited, MM diagnostic mammo BI: 06/09/2024 BI-RADS: 2 CLINICAL: 83-year old female for bilateral diagnostic mammogram and left diagnostic breast ultrasound. Tyrer-Cuzick lifetime risk of 0.2%. No personal or first-degree family history of breast cancer. The patient reports a palpable abnormality (3 months) in the left breast. PRIOR EXAMS 05/24/2020, 12/04/2019, 11/25/2019, 10/28/2018, 10/22/2017, 09/18/2016, 08/15/2015, 07/06/2014. MAMMOGRAPHY TECHNIQUE: 2D and 3D (tomosynthesis) digital mammographic views obtained, with additional images as needed for full coverage. Current study was also evaluated with a Computer Aided Detection (CAD) system. ULTRASOUND TECHNIQUE TARGETED Left Breast Ultrasound: Real-time ultrasound exam was performed focused to area of clinical and/or imaging concern. DENSITY C. The breasts are heterogeneously dense, which may obscure small masses. MAMMOGRAPHY FINDINGS Right: CC only, Outer, Posterior depth: There is a stable asymmetry seen only on one view that is unchanged in size and appearance. There are similar calcifications associated with the asymmetry compared to 05/24/2020. This likely represents post-surgical change from the patient's prior explantation. Left (finding-1): Upper Inner Quadrant, Posterior depth: A skin marker was placed in the area of concern, and no mammographic abnormalities are identified or to account for concern by the patient of a palpable lump. No suspicious mass, asymmetry, microcalcification, or other abnormality seen. ULTRASOUND FINDINGS Left (finding-1): Upper Inner at 10:00, 8 cm from nipple: Underlying the surface marker, there is no suspicious sonographic finding to account for concern by the patient of a palpable lump. The patient may be palpating the normal chest wall/rib. Clinical correlation is recommended. IMPRESSION: Right * No evidence of malignancy with benign findings. Left * No evidence of malignancy. RECOMMENDATIONS Left * Clinical follow-up is recommended, and further management of palpable abnormalities or other focal signs or symptoms should be based on the results of clinical evaluation. If palpable abnormality or other concerning symptom persists or progresses, further clinical evaluation should be considered. Bilateral * Annual screening mammography. COMMENTS: Findings and recommendations were conveyed to the patient during today's evaluation. OVERALL ASSESSMENT CATEGORY BI-RADS-2: Benign. [employer] recommends annual screening mammography beginning at age 40 for women with average risk of breast cancer. ELECTRONICALLY SIGNED: Gala Marcano M.D. on 06/09/2024 at 12:03:18 PM PT Interpreting Station ID: [id number]
== END ==
PROVIDERS: Family Provider Family Medicine; PCP Family Medicine; Referring Provider Family Medicine; Visit Provider Family Medicine
DX: R92.1 Mammographic calcification found on diagnostic imaging of breast; N63.22 Unspecified lump in the left breast, upper inner quadrant; R92.333 Mammographic heterogeneous density, bilateral breasts
CPT/HCPCS: 76642; 77066; G0279

== ENCOUNTER → 2024-07-03 08:33 | Outpatient (CLI) | payer MEDICARE, OTHER, SELFPAY ==
[2024-06-08 10:44] VITALS: BMI 19.0
[2024-07-03 09:34] LABS: Add Manual Diff / Slide Review NO; Basophils Absolute Auto 0 /uL (0-100); Basophils Percent Auto 0.4 % (0-2); Eosinophils Absolute Auto 100 /uL (0-450); Hematocrit 39.9 % (36-46); Hemoglobin 13.2 g/dL (12.0-16.0); Lymphocytes Absolute Auto 900 /uL (1100-4500); Mean Corpuscular Hemoglobin 30.2 PG (26-34); Mean Corpuscular Volume 91.7 fL (80-100); Monocytes Absolute Auto 600 /uL (0-900); Monocytes Percent Auto 10.7 % (3-14); Neutrophils Absolute Auto 3700 /uL (1500-7000); Neutrophils Percent Auto 69.9 % (50-75); Platelet Count 204 X10^3/uL (150-400); Red Blood Cell Count 4.36 X10^6/uL (4.0-5.2); Red Cell Distribution Width 14.6 % (11.6-14.8); White Blood Cell Count 5.2 X10^3/uL (4.5-11.0)
[2024-07-03 09:52] LABS: Alanine Aminotransferase 21 IU/L (<35); Albumin 4.3 g/dL (3.5-5.0); Albumin Globulin Ratio 1.7 (1.0-2.8); Alkaline Phosphatase 61 U/L (38-126); Aspartate Aminotransferase 31 IU/L (14-36); BUN Creatinine Ratio 50.9 (6-22); Blood Urea Nitrogen 28 mg/dL (7-17); Calcium 9.6 mg/dL (8.4-10.2); Carbon Dioxide 34 mmol/L (22-32); Chloride 97 mmol/L (98-107); Cholesterol 122 mg/dL (140-199); Estimated Glomerular Filt Rate > 60 mL/min (>60); Globulin 2.5 g/dL (1.7-4.1); Glucose 86 mg/dL (70-99); HDL Cholesterol 62 mg/dL (40-60); HEMOLYSIS 18 (0-50); LDL Cholesterol Calculated 47 mg/dL (<100); Potassium 4.2 mmol/L (3.4-5.1); Sodium 137 mmol/L (137-145); Total Protein 6.8 g/dL (6.3-8.2); Triglycerides 66 mg/dL (35-150)
[2024-07-03 10:23] LABS: Thyroid Stimulating Hormone 1.29 uIU/mL (0.47-4.68)
== END ==
PROVIDERS: Family Provider Family Medicine; PCP Family Medicine; Referring Provider Internal Medicine Cardiovascular Disease; Visit Provider Internal Medicine Cardiovascular Disease
DX: I10 Essential (primary) hypertension (principal)
CPT/HCPCS: 36415; 80053; 80061; 84439; 84443; 85025

== ENCOUNTER 2024-07-22 09:52 | Emergency (ER) | payer MEDICARE, OTHER, SELFPAY ==
[2024-06-08 10:44] VITALS: BMI 19.0
[2024-07-22] VITALS (9 sets, daily range): BP systolic 112–128; BP diastolic 63–77; PULSE 48–112; RESP 14–29; TEMP 36.6; O2SAT 79–99
--- NOTE | 2024-07-22 10:13 | DI.RAD.S_ITS ---
PROCEDURE: XR CHEST 1V INDICATIONS: Shortness of breath TECHNIQUE: One view of the chest was acquired. COMPARISON: [facility], CR, XR CHEST 1V, 10/14/2023, 13:12. FINDINGS: Surgical changes and devices: Stable right pneumonectomy postsurgical changes. Lungs and pleura: Left lung is clear.. No pleural effusions or pneumothorax. Mediastinum: Mediastinal contours appear normal. Heart size is normal. Bones and chest wall: No suspicious bony lesions. Overlying soft tissues appear unremarkable. IMPRESSION: No acute cardiopulmonary abnormality is seen. Dictated by: Kavya Benítez MD, PhD on 07/22/2024 at 10:36 Approved by: Kavya Benítez MD, PhD on 07/22/2024 at 10:38
--- NOTE | 2024-07-22 10:13 | EKG_ITS ---
[facility] [address] [place] [id number] Test Date: 2024-07-22 Pat Name: Cecille Toledo Department: Room: Gender: Female [employer] Assembler: MARIA C : 1940 Requested By: Order Number: [id number] Reading MD: Ammon Toney MD Measurements Intervals Taylor Rate: 117 P: VA: QRS: 51 QRSD: 82 T: -62 QT: 422 QTc: 588 Interpretive Statements Critical Test Result: Long QTc Probable atrial fibrillation with RVR ST & T wave abnormality, consider inferior ischemia Electronically Signed On 07-22-2024 10:52:40 PDT by Ammon Toney MD
[2024-07-22 10:44] LABS: Add Manual Diff / Slide Review NO; Basophils Absolute Auto 0 /uL (0-100); Basophils Percent Auto 0.3 % (0-2); Eosinophils Absolute Auto 0 /uL (0-450); Eosinophils Percent Auto 0.7 % (2-4); Hemoglobin 12.3 g/dL (12.0-16.0); Lymphocytes Absolute Auto 900 /uL (1100-4500); Lymphocytes Percent Auto 15.4 % (25-40); Mean Corpuscular HGB Conc 33.2 % (30-36); Mean Corpuscular Hemoglobin 30.3 PG (26-34); Mean Corpuscular Volume 91.4 fL (80-100); Monocytes Absolute Auto 600 /uL (0-900); Neutrophils Absolute Auto 4200 /uL (1500-7000); Neutrophils Percent Auto 73.6 % (50-75); Platelet Count 208 X10^3/uL (150-400); Red Blood Cell Count 4.05 X10^6/uL (4.0-5.2); Red Cell Distribution Width 14.3 % (11.6-14.8); White Blood Cell Count 5.8 X10^3/uL (4.5-11.0)
[2024-07-22 10:49] LABS: INR 1.1 (0.9-1.3); Prothrombin Time 12.3 SECONDS (9.4-12.5)
[2024-07-22 10:50] LABS: Alanine Aminotransferase 20 IU/L (<35); Albumin 4.1 g/dL (3.5-5.0); Albumin Globulin Ratio 1.5 (1.0-2.8); Alkaline Phosphatase 59 U/L (38-126); Aspartate Aminotransferase 30 IU/L (14-36); BUN Creatinine Ratio 49.2 (6-22); Bilirubin Total 0.8 mg/dL (0.2-1.3); Blood Urea Nitrogen 32 mg/dL (7-17); Calcium 9.7 mg/dL (8.4-10.2); Carbon Dioxide 34 mmol/L (22-32); Chloride 98 mmol/L (98-107); Estimated Glomerular Filt Rate > 60 mL/min (>60); Globulin 2.7 g/dL (1.7-4.1); Glucose 107 mg/dL (70-99); HEMOLYSIS 16 (0-50); Potassium 4.1 mmol/L (3.4-5.1); Sodium 138 mmol/L (137-145); Total Protein 6.8 g/dL (6.3-8.2)
[2024-07-22 10:51] LABS: Lactate (Lactic Acid) 1.5 mmol/L (0.7-2.1)
[2024-07-22 11:02] LABS: NT-proBNP (BNP-Adult 18+) 2290 pg/mL (<450); Troponin I < 0.012 ng/mL (0.01-0.034)
--- NOTE | 2024-07-22 11:15 | ED.SOB ---
HPI - SOB/Dyspnea General Chief Complaint: Shortness of Breath/Dyspnea Stated Complaint: SOB Time Seen by Provider: 07/22/24 10:16 Source: patient, RN notes reviewed and old records reviewed Mode of arrival: Ambulatory Limitations: no limitations History of Present Illness HPI Narrative: 83-year-old female atrial fibrillation on amiodarone, COPD, hypertension prior pneumonectomy on aspirin daily who presents with complaint of increased shortness of breath. Patient states she was felt a little bit more congested in her chest. Denies any fevers denies any nasal congestion no new increased cough. She was noticed some increased shortness of breath sometimes even with minimal exertion. She does use O2 intermittently but states she used it throughout yesterday which is atypical. She has been able to lay flat but notes she was stopped elevating her legs because they have been increasingly swollen. She notes that she has been helping with some red cells and has a lot of salty meals recently. She also notes that there was another individual who had a cold who had given her hug she has not had any nasal congestion or other cold-like symptoms it was a few days before symptoms started. Has been about a week of symptoms. Patient states she was on aspirin, amiodarone no other anticoagulation, she was on atorvastatin, carvedilol she does take furosemide daily as well as potassium supplementation. She notes she follows with Dr. Pedroza for electrophysiology and Cardiology at [facility] but has been referred to [facility] for a Watchman device. He also recommended to follow up with a sleep study. Patient denies any drug allergies. Dr. Puckett is her primary care physician. Related Data Home Medications Medication Instructions Recorded Confirmed calcium 600 mg (as 2 tab PO DAILY 06/24/18 06/30/24 carbonate)-vitamin D3 5 mcg (200 unit) tablet (Calcium 600 + D(3)) multivitamin with minerals 1 tab PO DAILY 06/24/18 06/30/24 amlodipine 2.5 mg tablet 2.5 mg PO DAILY 05/25/21 06/30/24 ferrous sulfate 325 mg (65 mg 325 mg PO Q OTHER DAY 01/09/23 06/30/24 iron) tablet amiodarone 200 mg tablet 200 mg PO DAILY 08/14/23 06/30/24 carvedilol 3.125 mg tablet 3.125 mg PO BID 08/14/23 06/30/24 potassium chloride 20 mEq 20 meq PO DAILY 08/14/23 06/30/24 tablet,extended release Previous Rx's Medication Instructions Recorded Disabled Parking #1 ea 07/03/22 acetaminophen 325 mg tablet 650 mg (2 x 325 mg) PO Q6H PRN 04/12/23 Fever/Mild Pain (1-3) #90 tabs aspirin 81 mg capsule 81 mg PO DAILY #90 caps 04/12/23 albuterol sulfate 90 mcg/actuation 2 puff inhalation Q4-6H PRN 10/16/23 aerosol inhaler shortness of breath or wheezing #6.7 grams budesonide 180 mcg/actuation 1 inh inhalation BID #2 ea 10/30/23 breath activated powder inhaler (Pulmicort Flexhaler) tiotropium bromide 18 mcg capsule 1 cap inhalation DAILY #90 02/03/24 with inhalation device inhalations furosemide 40 mg tablet 40 mg PO QAM #90 tabs 03/30/24 ciprofloxacin HCl 250 mg tablet 250 mg PO BID #6 tabs 04/02/24 atorvastatin 20 mg tablet 10 mg (1/2 x 20 mg) PO BEDTIME #45 05/10/24 tabs Supplemental Oxygen #1 ea 06/17/24 furosemide 40 mg tablet (Lasix) 40 mg PO DAILY #3 tabs 07/22/24 Allergies Allergy/AdvReac Type Severity Reaction Status Date / Time No Known Drug Allergies Allergy Verified 06/30/24 08:57 Review of Systems Review of Systems ROS Unobtainable: All systems reviewed & are unremarkable except as noted in HPI and below Patient History Medical History Easy bruisability History of cardioversion Raynauds syndrome (12/14/10) Atrial fibrillation with RVR COPD (chronic obstructive pulmonary disease) Uterine cancer (1994) Ovarian cancer (1994) Osteoporosis (2015) Osteoarthritis Atrial fibrillation (2013) Hypertension Lung cancer (2006) Surgical History Anesthesia History of pneumonectomy (05/23/08) History of oophorectomy (1994) History of hip replacement (01/2013) History of breast augmentation (1992) History of bilateral salpingo-oophorectomy (BSO) Status post hysterectomy (1994) Family History Father Hypertension Prostate cancer Grandfather Stroke Grandmother Diabetes mellitus Mother Diabetes mellitus, type II Hypertension Stroke Grandfather No problems noted. Grandmother No problems noted. Social History marital status: unmarried,single household members: none lives independently: Yes pets and animals: Yes education level: college occupational status: other Smoking Status: Never smoker Tobacco: How many years used: 19 second hand exposure: No alcohol intake: current substance use type: does not use Smoking Status: Never smoker alcohol intake frequency: holidays/special occasions only Exam Narrative Exam Narrative: GENERAL: Alert and oriented x three, thin, elderly female in mild distress HEENT: Head normocephalic, atraumatic, EOMI, pupils reactive, face symmetric, moist mucous membranes NECK: Supple, full range of motion CARDIOVASCULAR: Irregularly irregular rate and rhythm without murmurs, rubs or gallops. Bilateral lower extremity edema. RESPIRATORY: Breath sounds decreased on the right, no wheezes rales or rhonchi. No tachypnea. Speaks in full sentences. Patient had just ambulated to the bathroom on room air was 84% at bedside but in no distress has been placed back on nasal cannula and slowly improved back into the low 90s. ABDOMEN: Soft, nontender. Normoactive bowel sounds all 4 quadrants. No guarding or rebound, rigidity, no mass : No CVA tenderness EXTREMITIES: Normal range of motion. Neurovascularly intact NEUROLOGICAL: Cranial nerves II through XII grossly intact. Moving all extremities. SKIN: Warm, dry, no petechiae, no rashes or lesions. Initial Vital Signs Initial Vital Signs: Vital Signs Pulse Rate 48 L 07/22/24 10:02 Pulse Oximetry 95 07/22/24 10:02 Course Orders Ordered: ED Orders 07/22/24 10:13 XR chest 1V Stat EKG-12 Lead Stat Measure peak expiratory flow STAT RT Consult Eval and Treat STAT 07/22/24 10:25 Complete Blood Count AUTO DIFF Stat Comprehensive Metabolic Panel Stat Lactate (Lactic Acid) Stat NT-proBNP (BNP-Adult 18+) Stat Prothrombin Time INR Stat Troponin I Stat 07/22/24 12:03 Urine Culture Stat Urine Microscopic Stat 07/22/24 12:09 Urine Culture Stat Discontinued Medications Furosemide (Furosemide 40 Mg/4 Ml Vial) 40 mg IV NOW ONE Stop: 07/22/24 11:37 Last Admin: 07/22/24 11:50 Dose: 40 mg Documented By: [facility] Vital Signs Vital signs: Vital Signs - 8 hr 07/22/24 10:02 07/22/24 10:07 07/22/24 10:30 Temperature 97.8 F Pulse Rate 48 L 112 H 111 H Respiratory Rate 22 25 H Blood Pressure 128/75 Pulse Oximetry 95 79 L 99 Oxygen Delivery Method Room Air Nasal Cannula 07/22/24 11:00 07/22/24 11:30 07/22/24 11:30 Temperature Pulse Rate 108 H 107 H Respiratory Rate 29 H 14 Blood Pressure 113/77 Pulse Oximetry 97 89 L Oxygen Delivery Method 07/22/24 12:00 07/22/24 12:00 07/22/24 12:30 Temperature Pulse Rate 98 H 101 H Respiratory Rate 15 23 Blood Pressure 118/70 Pulse Oximetry 99 96 Oxygen Delivery Method 07/22/24 12:30 07/22/24 13:00 07/22/24 13:00 Temperature Pulse Rate 99 H Respiratory Rate 21 Blood Pressure 112/73 120/63 Pulse Oximetry 99 Oxygen Delivery Method 07/22/24 13:30 07/22/24 13:30 Temperature Pulse Rate 106 H Respiratory Rate 26 H Blood Pressure 123/74 Pulse Oximetry 97 Oxygen Delivery Method MDM - SOB/Dyspnea Lab Data 07/22/24 10:25 07/22/24 10:25 Labs: Lab Results 07/22/24 07/22/24 Range/Units 10:25 12:03 WBC 5.8 (4.5-11.0) X10^3/uL RBC 4.05 (4.0-5.2) X10^6/uL Hgb 12.3 (12.0-16.0) g/dL Hct 37.0 (36-46) % MCV 91.4 (80-100) fL MCH 30.3 (26-34) PG MCHC 33.2 (30-36) % RDW 14.3 (11.6-14.8) % Plt Count 208 (150-400) X10^3/uL Neut % (Auto) 73.6 (50-75) % Lymph % (Auto) 15.4 L (25-40) % Perry % (Auto) 10.0 (3-14) % Eos % (Auto) 0.7 L (2-4) % Baso % (Auto) 0.3 (0-2) % Neut # (Auto) 4200 (7366-9532) /uL Lymph # (Auto) 900 L (6447-2642) /uL Perry # (Auto) 600 (0-900) /uL Eos # (Auto) 0 (0-450) /uL Baso # (Auto) 0 (0-100) /uL PT 12.3 (9.4-12.5) SECONDS INR 1.1 (0.9-1.3) Sodium 138 (137-145) mmol/L Potassium 4.1 (3.4-5.1) mmol/L Chloride 98 (98-107) mmol/L Carbon Dioxide 34 H (22-32) mmol/L BUN 32 H (7-17) mg/dL Creatinine 0.65 (0.52-1.04) mg/dL Estimated GFR > 60 (>60) mL/min BUN/Creatinine Ratio 49.2 H (6-22) Glucose 107 H (70-99) mg/dL Lactate 1.5 (0.7-2.1) mmol/L Calcium 9.7 (8.4-10.2) mg/dL Total Bilirubin 0.8 (0.2-1.3) mg/dL AST 30 (14-36) IU/L ALT 20 (<35) IU/L Alkaline Phosphatase 59 (38-126) U/L Troponin I < 0.012 (0.01-0.034) ng/mL NT-Pro-B Natriuret Pep 2290 H (<450) pg/mL Total Protein 6.8 (6.3-8.2) g/dL Albumin 4.1 (3.5-5.0) g/dL Globulin 2.7 (1.7-4.1) g/dL Albumin/Globulin Ratio 1.5 (1.0-2.8) Urine RBC None seen (0-5/HPF) Urine WBC 1-5/hpf (0-5/HPF) Ur Squamous Epith Cells 0-1 /hpf (0-5/HPF) Urine Bacteria Many (>30) H (None) Ur Culture Indicated? Cult not indicated Vol Urine Centrifuged 10ml (spun) Urine Dip Bedside Urine Glucose Negative Bedside Urine Bilirubin - Negative Bedside Urine Ketone - Negative Urine Specific Rudd 1.010 Bedside Urine Occult Blood - Negative Bedside Urine pH 7.5 Bedside Urine Protein - Negative Bedside Urine Urobilinogen - Negative Bedside Urine Nitrite - Negative Bedside Urine Leukocytes ++ 125 Esterase ECG Data Attestation: I personally reviewed and interpreted this ECG as follows: Prior ECG tracings: available for review Interpretation: Junctional rhythm nonspecific change, long QT, rate of 117 QRS 82 QTC of 588 patient has prior from 10/14/2023 which at that time appeared to be atrial fibrillation with a rate in the 70s patient has some nonspecific change. MDM Narrative Medical decision making narrative: Labs show normal white count hemoglobin and platelets, CO2 is 34 BUN 32 electrolytes are otherwise normal creatinine 0.65 glucose is 107 lactate 1.5. LFTs are normal troponins less than 0.012 with a BNP of 2290. Patient appears to run in the 1002 upper 1000 range typically. EKG shows junctional versus AFib rate of 117, nonspecific change to prior. Chest x-ray shows no acute change patient does has a stable right pneumonectomy with postsurgical changes left lung appears clear. Point of care urine is positive for leukocyte esterase. Micro shows 1-5 white cells 1 squamous many bacteria. 83-year-old female presents with complaint of increased shortness of breath has had a prior pneumonectomy, also has a history of atrial fibrillation she was on Lasix daily as well. She was also noticed increased swelling of her lower extremities and states she was had quite a few extra salty meals from her normal baseline. Possible exposure for upper respiratory infection but patient defers respiratory swab. Symptoms and exam seem most consistent with CHF. She does become hypoxic on room air but uses home O2 intermittently but has needed a bit more increasing frequency. Patient does not feel she requires any hospitalization at this time discussed adjusting her Lasix here in the department. Patient received Lasix. Patient had about 800 mL out total. She has been able to ambulate in the department with minimal assistance. Patient on recheck is feeling improved. Discussed findings from today suspect patient was more fluid overload then respiratory source of her shortness of breath today. We will increase her Lasix for several days and re-evaluate. She feels comfortable returning home. Denies urinary symptoms but has a little bit of concern for UTI. Reviewed her findings for this she would like to wait for urine culture before starting any antibiotics. Discharge Plan Departure Patient Disposition: Home Clinical Impression: CHF (congestive heart failure) Instructions: DI for Heart Failure Activity Restrictions/Additional Instructions: Follow up with your physician. You can follow up with the primary care or your salesperson household appliances if you prefer. You appear to have some fluid overload or backup, increase your Lasix to 2 tablets daily for the next 3 days, then return to your normal dose. A prescription was printed and included. Please return if you have new chest pain, increasing shortness of breath any lightheadedness or passing out, rapidly worsening swelling of your extremities, other new or worsening symptoms. Prescriptions: New furosemide [Lasix] 40 mg tablet 40 mg PO DAILY Qty: 3 0RF No Action ciprofloxacin HCl 250 mg tablet 250 mg PO BID Qty: 6 0RF (DME) Disabled Parking See Rx Instructions .ROUTE .MEDSUPPLY Qty: 1 0RF Rx Instructions: I find this patient to be medically disabled and qualified for Permanent Disabled Parking as indicated, and signed, on the Accompanying Disabled Parking Application for Individuals Pulmicort Flexhaler 180 mcg/actuation aerosol powdr breath activated 1 inh inhalation BID Qty: 2 3RF tiotropium bromide 18 mcg capsule, w/inhalation device 1 cap inhalation DAILY Qty: 90 3RF Rx Instructions: puncture 1 cap using device; one dose = 2 inhalations furosemide 40 mg tablet 40 mg PO QAM Qty: 90 3RF atorvastatin 20 mg tablet 10 mg PO BEDTIME Qty: 45 0RF (DME) Supplemental Oxygen 2 L/min aerosol See Rx Instructions .Route .MEDSUPPLY Qty: 1 0RF Rx Instructions: As directed To keep O2 sats above 88% calcium carbonate-vitamin D3 [Calcium 600 + D(3)] 600 mg(1,500mg) -200 unit Tablet 2 tab PO DAILY multivitamin with minerals Tablet 1 tab PO DAILY amiodarone 200 mg tablet 200 mg PO DAILY carvedilol 3.125 mg tablet 3.125 mg PO BID potassium chloride 20 mEq tablet extended release 20 meq PO DAILY amlodipine 2.5 mg Tablet 2.5 mg PO DAILY ferrous sulfate 325 mg (65 mg iron) tablet 325 mg PO Q OTHER DAY acetaminophen 325 mg Tablet 650 mg PO Q6H PRN (Reason: Fever/Mild Pain (1-3)) Qty: 90 0RF aspirin 81 mg capsule 81 mg PO DAILY Qty: 90 0RF albuterol sulfate 90 mcg/actuation HFA aerosol inhaler 2 puff inhalation Q4-6H PRN (Reason: shortness of breath or wheezing) Qty: 6.7 2RF Referrals: Rosio Puckett MD [Primary Care Provider] - Stand Alone Forms: Patient Portal/API/Survey
[2024-07-22] MEDS: FUROSEMIDE 40 MG/4 ML VIAL IV (11:50)
[2024-07-22 13:13] LABS: Bacteria Urine Many (>30); RBC Urine None Seen (0-5/HPF); Squamous Epithelial Cell Urine 0-1 /HPF (0-5/HPF); Urine Volume 10mL (spun); WBC Urine 1-5/HPF (0-5/HPF)
[2024-07-22 13:14] LABS: Culture Indicated Urine Cult Not Indicated
== END 2024-07-22 14:03 | disposition home or self-care (01) ==
PROVIDERS: Emergency Provider Emergency Medicine; Family Provider Family Medicine; PCP Family Medicine
DX: I50.9 Heart failure, unspecified (principal); R06.02 Shortness of breath
CPT/HCPCS: 36415; 71045; 80053; 81003; 81015; 83605; 83880; 84484; 85025; 85610; 87077; 87086; 87186; 93005; 96374; 99284; J1938

== ENCOUNTER 2024-07-29 09:31 | Observation (INO) | payer MEDICARE, OTHER, SELFPAY ==
[2024-06-08 10:44] VITALS: BMI 19.0
[2024-07-29] VITALS (53 sets, daily range): BP systolic 52–145; BP diastolic 36–82; PULSE 75–129; RESP 14–47; TEMP 36.4–37.3; O2SAT 45–100; BMI 19.1
--- NOTE | 2024-07-29 09:54 | EKG_ITS ---
[address] [address] Test Date: 2024-07-29 Pat Name: Cecille Toledo Department: Room: Gender: Female Demographer: MARIA C : 1940 Requested By: Order Number: [id number] Reading MD: Omid Grullon Measurements Intervals [place] Rate: 106 P: MD: QRS: 93 QRSD: 86 T: 49 QT: 330 QTc: 438 Interpretive Statements Atrial fibrillation with rapid ventricular response Rightward axis Inferior infarct , age undetermined Electronically Signed On 07-29-2024 16:23:02 PDT by Omid Grullon
--- NOTE | 2024-07-29 09:56 | DI.RAD.S_ITS ---
PROCEDURE: XR CHEST 1V INDICATIONS: Chest Pain TECHNIQUE: One view of the chest was acquired. COMPARISON: [facility], CR, XR CHEST 1V, 07/22/2024, 10:16. FINDINGS: Surgical changes and devices: Stable right pneumonectomy postsurgical changes. Lungs and pleura: Left lung is clear. No pleural effusions or pneumothorax. Mediastinum: Mediastinal contours appear normal. Heart size is normal. Bones and chest wall: No suspicious bony lesions. Overlying soft tissues appear unremarkable. IMPRESSION: No acute cardiopulmonary abnormality is seen. Dictated by: Kavya Benítez MD, PhD on 07/29/2024 at 10:16 Approved by: Kavya Benítez MD, PhD on 07/29/2024 at 10:17
[2024-07-29 10:10] LABS: INR 1.1 (0.9-1.3); Prothrombin Time 12.2 SECONDS (9.4-12.5)
[2024-07-29 10:12] LABS: Add Manual Diff / Slide Review NO; Basophils Absolute Auto 0 /uL (0-100); Basophils Percent Auto 0.5 % (0-2); Eosinophils Absolute Auto 0 /uL (0-450); Eosinophils Percent Auto 0.5 % (2-4); Hematocrit 37.4 % (36-46); Hemoglobin 12.1 g/dL (12.0-16.0); Lymphocytes Absolute Auto 800 /uL (1100-4500); Mean Corpuscular HGB Conc 32.3 % (30-36); Mean Corpuscular Hemoglobin 29.8 PG (26-34); Mean Corpuscular Volume 92.5 fL (80-100); Monocytes Absolute Auto 600 /uL (0-900); Monocytes Percent Auto 8.2 % (3-14); Neutrophils Absolute Auto 5500 /uL (1500-7000); Neutrophils Percent Auto 78.8 % (50-75); Platelet Count 234 X10^3/uL (150-400); Red Blood Cell Count 4.04 X10^6/uL (4.0-5.2)
[2024-07-29 10:13] LABS: PTT Partial Thromboplastin Tim 38 SECONDS (25.1-36.5)
[2024-07-29 10:14] LABS: Alanine Aminotransferase 20 IU/L (<35); Albumin 4.1 g/dL (3.5-5.0); Albumin Globulin Ratio 1.6 (1.0-2.8); Alkaline Phosphatase 54 U/L (38-126); Aspartate Aminotransferase 32 IU/L (14-36); BUN Creatinine Ratio 42.2 (6-22); Bilirubin Total 0.8 mg/dL (0.2-1.3); Blood Urea Nitrogen 27 mg/dL (7-17); Calcium 9.4 mg/dL (8.4-10.2); Carbon Dioxide 34 mmol/L (22-32); Chloride 97 mmol/L (98-107); Creatine Kinase 68 U/L (30-135); Estimated Glomerular Filt Rate > 60 mL/min (>60); Globulin 2.5 g/dL (1.7-4.1); Glucose 116 mg/dL (70-99); HEMOLYSIS 23 (0-50); Lactate (Lactic Acid) 2.1 mmol/L (0.7-2.1); Lipase 51 U/L (23-300); Magnesium 1.9 mg/dL (1.6-2.3); Potassium 4.3 mmol/L (3.4-5.1); Sodium 137 mmol/L (137-145); Total Protein 6.6 g/dL (6.3-8.2)
--- NOTE | 2024-07-29 10:15 | ED_ITS ---
HPI - Fall General Chief Complaint: Fall Stated Complaint: GLF Source: patient Mode of arrival: Ambulatory History of Present Illness HPI Narrative: 83-year-old female history of AFib, atrial flutter, history of right lung metastasis status post right lung resection, endometrial cancer, and colon cancer status post bilateral oophorectomy and hysterectomy presents with mechanical fall tripping over a shoe hitting her head against the nightstand but did not pass out prior to arrival. Patient reports neck pain at this time but no headache dizziness blurred vision chest pain shortness of breath. He has had several falls in the past few months and as such she is no longer on warfarin at this time per cardiology report. Other than what is stated 14 point review of system is negative Related Data Home Medications Medication Instructions Recorded Confirmed calcium 600 mg (as 2 tab PO DAILY 06/24/18 06/30/24 carbonate)-vitamin D3 5 mcg (200 unit) tablet (Calcium 600 + D(3)) multivitamin with minerals 1 tab PO DAILY 06/24/18 06/30/24 amlodipine 2.5 mg tablet 2.5 mg PO DAILY 05/25/21 06/30/24 ferrous sulfate 325 mg (65 mg 325 mg PO Q OTHER DAY 01/09/23 06/30/24 iron) tablet amiodarone 200 mg tablet 200 mg PO DAILY 08/14/23 06/30/24 carvedilol 3.125 mg tablet 3.125 mg PO BID 08/14/23 06/30/24 potassium chloride 20 mEq 20 meq PO DAILY 08/14/23 06/30/24 tablet,extended release Previous Rx's Medication Instructions Recorded Disabled Parking #1 ea 07/03/22 acetaminophen 325 mg tablet 650 mg (2 x 325 mg) PO Q6H PRN 04/12/23 Fever/Mild Pain (1-3) #90 tabs aspirin 81 mg capsule 81 mg PO DAILY #90 caps 04/12/23 albuterol sulfate 90 mcg/actuation 2 puff inhalation Q4-6H PRN 10/16/23 aerosol inhaler shortness of breath or wheezing #6.7 grams budesonide 180 mcg/actuation 1 inh inhalation BID #2 ea 10/30/23 breath activated powder inhaler (Pulmicort Flexhaler) tiotropium bromide 18 mcg capsule 1 cap inhalation DAILY #90 02/03/24 with inhalation device inhalations furosemide 40 mg tablet 40 mg PO QAM #90 tabs 03/30/24 ciprofloxacin HCl 250 mg tablet 250 mg PO BID #6 tabs 04/02/24 atorvastatin 20 mg tablet 10 mg (1/2 x 20 mg) PO BEDTIME #45 05/10/24 tabs Supplemental Oxygen #1 ea 06/17/24 furosemide 40 mg tablet (Lasix) 40 mg PO DAILY #3 tabs 07/22/24 nitrofurantoin 100 mg PO Q12H 5 days #10 caps 07/26/24 monohydrate/macrocrystals 100 mg capsule (Macrobid) Allergies Allergy/AdvReac Type Severity Reaction Status Date / Time No Known Drug Allergies Allergy Verified 07/29/24 09:34 Review of Systems Review of Systems ROS Unobtainable: All systems reviewed & are unremarkable except as noted in HPI and below Patient History Medical History Easy bruisability History of cardioversion Raynauds syndrome (12/14/10) Atrial fibrillation with RVR COPD (chronic obstructive pulmonary disease) Uterine cancer (1994) Ovarian cancer (1994) Osteoporosis (2015) Osteoarthritis Atrial fibrillation (2013) Hypertension Lung cancer (2006) Surgical History Anesthesia History of pneumonectomy (05/23/08) History of oophorectomy (1994) History of hip replacement (01/2013) History of breast augmentation (1992) History of bilateral salpingo-oophorectomy (BSO) Status post hysterectomy (1994) Family History Father Hypertension Prostate cancer Grandfather Stroke Grandmother Diabetes mellitus Mother Diabetes mellitus, type II Hypertension Stroke Grandfather No problems noted. Grandmother No problems noted. Social History marital status: unmarried,single household members: none lives independently: Yes pets and animals: Yes education level: college occupational status: other Smoking Status: Former smoker Tobacco: How many years used: 19 second hand exposure: No alcohol intake: current substance use type: does not use Smoking Status: Former smoker alcohol intake frequency: holidays/special occasions only Exam Narrative Exam Narrative: GENERAL: [83] year old patient appears stated age. Well-developed patient, in mild distress. HEAD: Atraumatic. Normocephalic. EYES: Pupils equal round and reactive. Extraocular motions intact. No scleral icterus. No injection or drainage. ENT: Nose without bleeding, purulent drainage. Throat without erythema, tonsillar hypertrophy or exudate. Airway patent. NECK: Trachea midline. Non tender CARDIOVASCULAR: Regular rate and rhythm without murmurs, gallops, or rubs. RESPIRATORY: Clear to auscultation. Breath sounds equal bilaterally. No wheezes, rales, or rhonchi. GASTROINTESTINAL: Abdomen soft, non-tender, nondistended. EXTREMITIES: No edema or joint tenderness. BACK: Nontender without deformity or crepitance. No flank tenderness. NEURO: AOx3. GCS 15 nonfocal neuro exam SKIN: No rash or erythema of visible areas. left occipital parietal laceration Initial Vital Signs Initial Vital Signs: Vital Signs Temperature 98.1 F 07/29/24 09:34 Pulse Rate 128 H 07/29/24 09:34 Respiratory Rate 16 07/29/24 09:34 Blood Pressure 120/59 L 07/29/24 09:34 Pulse Oximetry 96 07/29/24 09:34 Oxygen Delivery Method Nasal Cannula 07/29/24 09:34 Oxygen Flow Rate 2 07/29/24 09:34 Procedures Laceration Repair Laceration 1: Time of procedure: 12:55 Site: scalp Side (If applicable): left Size (cm): 1.0 Description: linear Depth: simple, single layer Local Anesthetic: lidocaine 1% Amount of anesthesia used (mL): 1 Pre-repair: wound explored Skin layer suture size: other (2 YOVANY PLACED) Course Orders Ordered: ED Orders 07/29/24 09:50 Complete Blood Count AUTO DIFF Stat Comprehensive Metabolic Panel Stat Lactate (Lactic Acid) Stat Lipase Stat Magnesium Stat NT-proBNP (BNP-Adult 18+) Stat PTT Partial Thromboplastin Ashutosh Stat Prothrombin Time INR Stat Troponin & CK Cardiac Panel Stat 07/29/24 09:56 XR chest 1V Stat EKG-12 Lead Stat 07/29/24 10:28 CT cervical spine wo con Stat CT head/brain wo con Stat Discontinued Medications Furosemide (Furosemide 40 Mg/4 Ml Vial) 40 mg IV NOW ONE Stop: 07/29/24 11:21 Last Admin: 07/29/24 11:40 Dose: 40 mg Documented By: KIT Lidocaine/Epinephrine (Lidocaine 1% W/Epi 10ml) 4 ml INJ INTRA-OP ONE Stop: 07/29/24 12:28 Metoprolol Tartrate (Metoprolol Tartrate 5 Mg/5 Ml Inj) 5 mg IV NOW ONE Stop: 07/29/24 11:21 Last Admin: 07/29/24 11:39 Dose: 5 mg Documented By: KIT Vital Signs Vital signs: Vital Signs - 8 hr 07/29/24 09:34 07/29/24 09:42 07/29/24 10:00 Temperature 98.1 F Pulse Rate 128 H 121 H 118 H Respiratory Rate 16 28 H 25 H Blood Pressure 120/59 L Pulse Oximetry 96 99 96 Oxygen Delivery Method Nasal Cannula Oxygen Flow Rate 2 07/29/24 10:29 07/29/24 10:29 07/29/24 10:30 Temperature Pulse Rate 114 H 113 H Respiratory Rate 25 H Blood Pressure 117/67 Pulse Oximetry 98 Oxygen Delivery Method Oxygen Flow Rate 07/29/24 10:30 07/29/24 10:51 07/29/24 10:51 Temperature Pulse Rate 116 H Respiratory Rate 22 Blood Pressure 112/67 109/55 L Pulse Oximetry 99 Oxygen Delivery Method Oxygen Flow Rate 07/29/24 11:00 07/29/24 11:00 07/29/24 11:30 Temperature Pulse Rate 113 H 129 H Respiratory Rate Blood Pressure 112/67 Pulse Oximetry 99 Oxygen Delivery Method Oxygen Flow Rate 07/29/24 11:32 07/29/24 11:32 07/29/24 11:36 Temperature Pulse Rate 117 H 114 H Respiratory Rate 27 H Blood Pressure 114/82 Pulse Oximetry 96 100 Oxygen Delivery Method Oxygen Flow Rate 07/29/24 11:36 07/29/24 11:40 07/29/24 11:40 Temperature Pulse Rate 107 H Respiratory Rate Blood Pressure 118/64 109/67 Pulse Oximetry 99 Oxygen Delivery Method Oxygen Flow Rate 07/29/24 11:48 07/29/24 11:48 07/29/24 11:50 Temperature Pulse Rate 112 H 109 H Respiratory Rate Blood Pressure 119/74 Pulse Oximetry 99 99 Oxygen Delivery Method Oxygen Flow Rate 07/29/24 11:50 Temperature Pulse Rate Respiratory Rate Blood Pressure 115/67 Pulse Oximetry Oxygen Delivery Method Oxygen Flow Rate [facility] Fall Lab Data 07/29/24 13:05 07/29/24 09:50 Labs: Lab Results 07/29/24 Range/Units 09:50 WBC 7.0 (4.5-11.0) X10^3/uL RBC 4.04 (4.0-5.2) X10^6/uL Hgb 12.1 (12.0-16.0) g/dL Hct 37.4 (36-46) % MCV 92.5 (80-100) fL MCH 29.8 (26-34) PG MCHC 32.3 (30-36) % RDW 14.0 (11.6-14.8) % Plt Count 234 (150-400) X10^3/uL Neut % (Auto) 78.8 H (50-75) % Lymph % (Auto) 12.0 L (25-40) % [place] % (Auto) 8.2 (3-14) % Eos % (Auto) 0.5 L (2-4) % Baso % (Auto) 0.5 (0-2) % Neut # (Auto) 5500 (7775-6789) /uL Lymph # (Auto) 800 L (6413-0508) /uL [place] # (Auto) 600 (0-900) /uL Eos # (Auto) 0 (0-450) /uL Baso # (Auto) 0 (0-100) /uL PT 12.2 (9.4-12.5) SECONDS INR 1.1 (0.9-1.3) APTT 38 H (25.1-36.5) SECONDS Sodium 137 (137-145) mmol/L Potassium 4.3 (3.4-5.1) mmol/L Chloride 97 L (98-107) mmol/L Carbon Dioxide 34 H (22-32) mmol/L BUN 27 H (7-17) mg/dL Creatinine 0.64 (0.52-1.04) mg/dL Estimated GFR > 60 (>60) mL/min BUN/Creatinine Ratio 42.2 H (6-22) Glucose 116 H (70-99) mg/dL Lactate 2.1 (0.7-2.1) mmol/L Calcium 9.4 (8.4-10.2) mg/dL Magnesium 1.9 (1.6-2.3) mg/dL Total Bilirubin 0.8 (0.2-1.3) mg/dL AST 32 (14-36) IU/L ALT 20 (<35) IU/L Alkaline Phosphatase 54 (38-126) U/L Total Creatine Kinase 68 (30-135) U/L Troponin I < 0.012 (0.01-0.034) ng/mL NT-Pro-B Natriuret Pep 1870 H (<450) pg/mL Total Protein 6.6 (6.3-8.2) g/dL Albumin 4.1 (3.5-5.0) g/dL Globulin 2.5 (1.7-4.1) g/dL Albumin/Globulin Ratio 1.6 (1.0-2.8) Lipase 51 (23-300) U/L Imaging Data Chest x-ray: Radiologist's Impression: [place] [address] XRay Report Signed Patient: Cecille Toledo MR#: [id number] : 1940 Acct:[id number] Age/Sex: 83 / F Date of Service: 07/29/24 Loc: ED Accession Number: [id number] Procedure: XR chest 1V Ordering Provider: Ammon Marin D.O. PROCEDURE: XR CHEST 1V INDICATIONS: Chest Pain TECHNIQUE: One view of the chest was acquired. COMPARISON: [facility], , XR CHEST 1V, 07/22/2024, 10:16. FINDINGS: Surgical changes and devices: Stable right pneumonectomy postsurgical changes. Lungs and pleura: Left lung is clear. No pleural effusions or pneumothorax. Mediastinum: Mediastinal contours appear normal. Heart size is normal. Bones and chest wall: No suspicious bony lesions. Overlying soft tissues appear unremarkable. IMPRESSION: No acute cardiopulmonary abnormality is seen. CT scan - head: Radiologist's Impression: [place] [address] CT Scan Report Signed Patient: Cecille Toledo MR#: [id number] : 1940 Acct:[id number] Age/Sex: 83 / F Date of Service: 07/29/24 Loc: ED Accession Number: [id number] Procedure: CT cervical spine wo con Ordering Provider: Ammon Marin D.O. PROCEDURE: CT CERVICAL SPINE WO CON INDICATIONS: fall trauma TECHNIQUE: Noncontrast 3 mm thick sections acquired from the skull base to the T4 level. Sagittal and coronal reformats were then constructed. For radiation dose reduction, the following was used: automated exposure control, adjustment of mA and/or kV according to patient size. COMPARISON: [facility], CT, CT CERVICAL SPINE WO CON, 03/22/2023, 23:41. FINDINGS: Image quality: Excellent. Bones: No fractures or dislocations. 4 mm anterolisthesis of C4 on C5. Loss of disc height, degenerative endplate changes and bilateral facet hypertrophic changes are noted throughout cervical spine. Visualized superior ribs are intact. Soft tissues: Prevertebral soft tissues are normal in thickness. No paravertebral hematomas. No apical pneumothoraces. IMPRESSION: 1. No displaced fracture or traumatic subluxation. 2. Multilevel degenerative disc disease throughout cervical spine as above. Dictated by: Luís Pablo M.D. on 07/29/2024 at 11:00 Approved by: Luís Pablo M.D. on 07/29/2024 at 11:03 [place] [address] CT Scan Report Signed Patient: Cecille Toledo MR#: [id number] : 1940 Acct:[id number] Age/Sex: 83 / F Date of Service: 07/29/24 Loc: ED Accession Number: [id number] Procedure: CT head/brain wo con Ordering Provider: Ammon Marin D.O. PROCEDURE: CT HEAD/BRAIN WO CON INDICATIONS: fall trauma TECHNIQUE: Noncontrast 4.5 mm thick angled axial sections acquired from the foramen magnum to the vertex, with coronal and sagittal reformats. For radiation dose reduction, the following was used: automated exposure control, adjustment of mA and/or kV according to patient size. COMPARISON: [facility], CT, CT HEAD/BRAIN WO CON, 04/06/2023, 19:29. FINDINGS: Image quality: Diagnostic. CSF spaces: Basal cisterns are patent. No extra-axial fluid collections. The ventricles are symmetric in size and shape. Brain: No intracranial bleeds or mass effect. There is cerebral volume loss, with resultant ventricular and sulcal prominence. There are periventricular and deep white matter chronic small vessel ischemic changes. There is intracranial internal carotid artery atherosclerosis. Skull and face: Left posterior parietal scalp hematoma and laceration. Calvarium and visualized facial bones appear intact, without suspicious lesions. Sinuses: Visualized sinuses and mastoids are clear. IMPRESSION: 1. No acute intracranial pathology. 2. Left posterior parietal scalp hematoma and swelling. No acute skull fracture. Dictated by: Luís Pablo M.D. on 07/29/2024 at 10:56 Approved by: Luís Pablo M.D. on 07/29/2024 at 11:00 [facility] Narrative Medical decision making narrative: All lab work, vital signs, nurse triage note, medication list, previous ER visits and all imaging studies reviewed. CT cervical spine showed no displaced fracture or traumatic subluxation but multilevel degenerative disc disease throughout the cervical spine. CT head showed left posterior parietal scalp hematoma and swelling but no acute skull fracture otherwise. Chest x-ray showed no acute cardiopulmonary process. Discharge Plan Departure Patient Disposition: Admitted as Observation Clinical Impression: Atrial fibrillation with rapid ventricular response CHF (congestive heart failure) Qualifiers: Heart failure type: systolic Heart failure chronicity: unspecified Qualified Code(s): I50.20 - Unspecified systolic (congestive) heart failure Scalp hematoma Qualifiers: Encounter type: initial encounter Qualified Code(s): S00.03XA - Contusion of scalp, initial encounter Admit Date/Time: 07/29/24 11:51 Admit Provider: Rosio Puckett
[2024-07-29 10:25] LABS: NT-proBNP (BNP-Adult 18+) 1870 pg/mL (<450); Troponin I < 0.012 ng/mL (0.01-0.034)
--- NOTE | 2024-07-29 10:28 | DI.CT.S_ITS ---
PROCEDURE: CT CERVICAL SPINE WO CON INDICATIONS: fall trauma TECHNIQUE: Noncontrast 3 mm thick sections acquired from the skull base to the T4 level. Sagittal and coronal reformats were then constructed. For radiation dose reduction, the following was used: automated exposure control, adjustment of mA and/or kV according to patient size. COMPARISON: [facility], CT, CT CERVICAL SPINE WO CON, 03/22/2023, 23:41. FINDINGS: Image quality: Excellent. Bones: No fractures or dislocations. 4 mm anterolisthesis of C4 on C5. Loss of disc height, degenerative endplate changes and bilateral facet hypertrophic changes are noted throughout cervical spine. Visualized superior ribs are intact. Soft tissues: Prevertebral soft tissues are normal in thickness. No paravertebral hematomas. No apical pneumothoraces. IMPRESSION: 1. No displaced fracture or traumatic subluxation. 2. Multilevel degenerative disc disease throughout cervical spine as above. Dictated by: Luís Pablo M.D. on 07/29/2024 at 11:00 Approved by: Luís Pablo M.D. on 07/29/2024 at 11:03
--- NOTE | 2024-07-29 10:28 | DI.CT.S_ITS ---
PROCEDURE: CT HEAD/BRAIN WO CON INDICATIONS: fall trauma TECHNIQUE: Noncontrast 4.5 mm thick angled axial sections acquired from the foramen magnum to the vertex, with coronal and sagittal reformats. For radiation dose reduction, the following was used: automated exposure control, adjustment of mA and/or kV according to patient size. COMPARISON: [facility], CT, CT HEAD/BRAIN WO CON, 04/06/2023, 19:29. FINDINGS: Image quality: Diagnostic. CSF spaces: Basal cisterns are patent. No extra-axial fluid collections. The ventricles are symmetric in size and shape. Brain: No intracranial bleeds or mass effect. There is cerebral volume loss, with resultant ventricular and sulcal prominence. There are periventricular and deep white matter chronic small vessel ischemic changes. There is intracranial internal carotid artery atherosclerosis. Skull and face: Left posterior parietal scalp hematoma and laceration. Calvarium and visualized facial bones appear intact, without suspicious lesions. Sinuses: Visualized sinuses and mastoids are clear. IMPRESSION: 1. No acute intracranial pathology. 2. Left posterior parietal scalp hematoma and swelling. No acute skull fracture. Dictated by: Luís Pablo M.D. on 07/29/2024 at 10:56 Approved by: Luís Pablo M.D. on 07/29/2024 at 11:00
[2024-07-29] MEDS: METOPROLOL TARTRATE 5 MG/5 ML INJ IV (11:39)
[2024-07-29 11:40] LABS: Reflexed Lactate in 2 Hours Y
[2024-07-29] MEDS: FUROSEMIDE 40 MG/4 ML VIAL IV (11:40)
[2024-07-29 12:07] LABS: Lactate 2HR (Lactic Acid Rflx) 1.6 mmol/L (0.7-2.1)
[2024-07-29 13:21] LABS: Add Manual Diff / Slide Review NO; Basophils Absolute Auto 0 /uL (0-100); Basophils Percent Auto 0.3 % (0-2); Eosinophils Absolute Auto 0 /uL (0-450); Eosinophils Percent Auto 0.3 % (2-4); Hematocrit 33.3 % (36-46); Hemoglobin 10.8 g/dL (12.0-16.0); Lymphocytes Absolute Auto 1000 /uL (1100-4500); Lymphocytes Percent Auto 8.7 % (25-40); Mean Corpuscular HGB Conc 32.5 % (30-36); Mean Corpuscular Hemoglobin 29.7 PG (26-34); Mean Corpuscular Volume 91.5 fL (80-100); Monocytes Absolute Auto 800 /uL (0-900); Monocytes Percent Auto 7.3 % (3-14); Neutrophils Absolute Auto 9500 /uL (1500-7000); Neutrophils Percent Auto 83.4 % (50-75); Platelet Count 220 X10^3/uL (150-400); Red Blood Cell Count 3.65 X10^6/uL (4.0-5.2); Red Cell Distribution Width 13.8 % (11.6-14.8); White Blood Cell Count 11.4 X10^3/uL (4.5-11.0)
--- NOTE | 2024-07-29 13:29 | P.HP_ITS ---
History of Present Illness History of Present Illness Date Patient Seen: 07/29/24 Time Patient Seen: 12:45 Chief complaint: GLF Narrative: The pt is an 83yo woman with COPD, atrial fibrillation, CHF, iron deficiency anemia, HTN, and hx of lung cancer s/p right pneumonectomy who presented with scalp bleeding after ground level fall at home. The pt reports that this morning she was feeling slightly lightheaded. She was reaching for her oxygen to put it on and she tripped and fell. She hit her head on her bedside table. She denies any LOC, but states her head started bleeding profusely. She denies any other pains in her body at this time, other than some neck stiffness. She denies any associated chest pain, palpitations. The pt was seen in the ED on 07/22 due to worsening SOB. The pt was ultimately diagnosed with a mild CHF exacerbation, and discharge home on increased Lasix after improvement from single dose of IV Lasix. She was also diagnosed with a UTI which was treated with antibiotics. The pt states that in general at home she has remained more SOB than usual. She has been using her oxygen frequently during the day, when she typically only needs it at night or when exerting herself more. She has felt lightheaded on occasion at home recently, but this quickly improves with oxygen supplementation. In the ED, the pt was noted to have stable labs. BNP was elevated to 1870, down from 2290 on 07/22. CXR, CT head and c-spine were all normal. Attempts to control bleeding from the scalp laceration with pressure were unsuccessful. Ultimately surgery was contacted and bleeding was controlled with sutures. During this time, the pt became hypotensive. Her BP did respond to fluid resuscitation. [facility] Medical History Easy bruisability History of cardioversion Raynauds syndrome (12/14/10) Atrial fibrillation with RVR COPD (chronic obstructive pulmonary disease) Uterine cancer (1994) Ovarian cancer (1994) Osteoporosis (2015) Osteoarthritis Atrial fibrillation (2013) Hypertension Lung cancer (2006) Surgical History Anesthesia History of pneumonectomy (05/23/08) History of oophorectomy (1994) History of hip replacement (01/2013) History of breast augmentation (1992) History of bilateral salpingo-oophorectomy (BSO) Status post hysterectomy (1994) Family History Father Hypertension Prostate cancer Grandfather Stroke Grandmother Diabetes mellitus Mother Diabetes mellitus, type II Hypertension Stroke Grandfather No problems noted. Grandmother No problems noted. Social History marital status: unmarried,single household members: none lives independently: Yes pets and animals: Yes education level: college occupational status: other Smoking Status: Former smoker Tobacco: How many years used: 19 second hand exposure: No alcohol intake: current substance use type: does not use Meds Home Medications and Allergies Home Medications Medication Instructions Recorded Confirmed Type calcium 600 mg (as 2 tab PO DAILY 06/24/18 06/30/24 History carbonate)-vitamin D3 5 mcg (200 unit) tablet (Calcium 600 + D(3)) multivitamin with minerals 1 tab PO DAILY 06/24/18 06/30/24 History amlodipine 2.5 mg tablet 2.5 mg PO DAILY 05/25/21 06/30/24 History Disabled Parking #1 ea 07/03/22 06/30/24 Rx ferrous sulfate 325 mg (65 mg 325 mg PO Q OTHER DAY 01/09/23 06/30/24 History iron) tablet acetaminophen 325 mg tablet 650 mg (2 x 325 mg) PO Q6H PRN 04/12/23 06/30/24 Rx Fever/Mild Pain (1-3) #90 tabs aspirin 81 mg capsule 81 mg PO DAILY #90 caps 04/12/23 06/30/24 Rx amiodarone 200 mg tablet 200 mg PO DAILY 08/14/23 06/30/24 History carvedilol 3.125 mg tablet 3.125 mg PO BID 08/14/23 06/30/24 History potassium chloride 20 mEq 20 meq PO DAILY 08/14/23 06/30/24 History tablet,extended release albuterol sulfate 90 mcg/actuation 2 puff inhalation Q4-6H PRN 10/16/23 06/30/24 Rx aerosol inhaler shortness of breath or wheezing #6.7 grams budesonide 180 mcg/actuation 1 inh inhalation BID #2 ea 10/30/23 06/30/24 Rx breath activated powder inhaler (Pulmicort Flexhaler) tiotropium bromide 18 mcg capsule 1 cap inhalation DAILY #90 02/03/24 06/30/24 Rx with inhalation device inhalations furosemide 40 mg tablet 40 mg PO QAM #90 tabs 03/30/24 06/30/24 Rx ciprofloxacin HCl 250 mg tablet 250 mg PO BID #6 tabs 04/02/24 06/30/24 Rx atorvastatin 20 mg tablet 10 mg (1/2 x 20 mg) PO BEDTIME #45 05/10/24 06/30/24 Rx tabs Supplemental Oxygen #1 ea 06/17/24 06/30/24 Rx furosemide 40 mg tablet (Lasix) 40 mg PO DAILY #3 tabs 07/22/24 Rx nitrofurantoin 100 mg PO Q12H 5 days #10 caps 07/26/24 Rx monohydrate/macrocrystals 100 mg capsule (Macrobid) Allergies Allergy/AdvReac Type Severity Reaction Status Date / Time No Known Drug Allergies Allergy Verified 07/29/24 09:34 Exam Vital Signs (past 8 hours): - 07/29/24 09:34 07/29/24 09:42 07/29/24 10:00 Temperature 98.1 F Pulse Rate 128 H 121 H 118 H Respiratory Rate 16 28 H 25 H Blood Pressure 120/59 L Pulse Oximetry 96 99 96 Oxygen Delivery Method Nasal Cannula Oxygen Flow Rate 2 07/29/24 10:29 07/29/24 10:29 07/29/24 10:30 Temperature Pulse Rate 114 H 113 H Respiratory Rate 25 H Blood Pressure 117/67 Pulse Oximetry 98 Oxygen Delivery Method Oxygen Flow Rate 07/29/24 10:30 07/29/24 10:51 07/29/24 10:51 Temperature Pulse Rate 116 H Respiratory Rate 22 Blood Pressure 112/67 109/55 L Pulse Oximetry 99 Oxygen Delivery Method Oxygen Flow Rate 07/29/24 11:00 07/29/24 11:00 07/29/24 11:30 Temperature Pulse Rate 113 H 129 H Respiratory Rate Blood Pressure 112/67 Pulse Oximetry 99 Oxygen Delivery Method Oxygen Flow Rate 07/29/24 11:32 07/29/24 11:32 07/29/24 11:36 Temperature Pulse Rate 117 H 114 H Respiratory Rate 27 H Blood Pressure 114/82 Pulse Oximetry 96 100 Oxygen Delivery Method Oxygen Flow Rate 07/29/24 11:36 07/29/24 11:40 07/29/24 11:40 Temperature Pulse Rate 107 H Respiratory Rate Blood Pressure 118/64 109/67 Pulse Oximetry 99 Oxygen Delivery Method Oxygen Flow Rate 07/29/24 11:48 07/29/24 11:48 07/29/24 11:50 Temperature Pulse Rate 112 H 109 H Respiratory Rate Blood Pressure 119/74 Pulse Oximetry 99 99 Oxygen Delivery Method Oxygen Flow Rate 07/29/24 11:50 07/29/24 11:55 07/29/24 11:55 Temperature Pulse Rate 99 H Respiratory Rate 25 H Blood Pressure 115/67 101/65 Pulse Oximetry 99 Oxygen Delivery Method Oxygen Flow Rate 07/29/24 12:00 07/29/24 12:00 07/29/24 12:05 Temperature Pulse Rate 101 H 100 H Respiratory Rate 29 H 25 H Blood Pressure 112/67 Pulse Oximetry 98 99 Oxygen Delivery Method Oxygen Flow Rate 07/29/24 12:05 07/29/24 12:10 07/29/24 12:10 Temperature Pulse Rate 97 H Respiratory Rate 28 H Blood Pressure 108/61 93/60 Pulse Oximetry 99 Oxygen Delivery Method Oxygen Flow Rate 07/29/24 12:15 07/29/24 12:15 07/29/24 12:20 Temperature Pulse Rate 100 H 97 H Respiratory Rate 27 H 27 H Blood Pressure 102/66 Pulse Oximetry 99 99 Oxygen Delivery Method Oxygen Flow Rate 07/29/24 12:20 07/29/24 12:25 07/29/24 12:25 Temperature Pulse Rate 98 H Respiratory Rate 31 H Blood Pressure 112/65 122/56 L Pulse Oximetry 98 Oxygen Delivery Method Oxygen Flow Rate 07/29/24 12:30 07/29/24 12:30 07/29/24 12:35 Temperature Pulse Rate 102 H 101 H Respiratory Rate 30 H 31 H Blood Pressure 113/67 Pulse Oximetry 100 99 Oxygen Delivery Method Oxygen Flow Rate 07/29/24 12:35 Temperature Pulse Rate Respiratory Rate Blood Pressure 109/59 L Pulse Oximetry Oxygen Delivery Method Oxygen Flow Rate Oxygen Delivery Method Nasal Cannula Oxygen Flow Rate 2 Narrative Exam Narrative: Gen: NAD, sitting comfortably in bed, alert and speaking easily in complete sentences HEENT: normacephalic, left superior occipito-parietal laceration, significant blood crusted in hair, sclera clear Neck: no JVD CV: irregularly irregular rhythm, borderline tachycardia Resp: clear to auscultation, no wheezing or crackles, hyperresonant on the right side Abd: soft, nontender, nondistended Ext: trace edema, compression socks on Neuro: no gross deficits Objective Labs 07/29/24 13:05 07/29/24 09:50 Labs: Laboratory Results - last 24 hr 07/29/24 07/29/24 07/29/24 09:50 11:52 13:05 WBC 7.0 11.4 H D RBC 4.04 3.65 L Hgb 12.1 10.8 L Hct 37.4 33.3 L MCV 92.5 91.5 MCH 29.8 29.7 MCHC 32.3 32.5 RDW 14.0 13.8 Plt Count 234 220 Neut % (Auto) 78.8 H 83.4 H Lymph % (Auto) 12.0 L 8.7 L [place] % (Auto) 8.2 7.3 Eos % (Auto) 0.5 L 0.3 L Baso % (Auto) 0.5 0.3 Neut # (Auto) 5500 9500 H Lymph # (Auto) 800 L 1000 L [place] # (Auto) 600 800 Eos # (Auto) 0 0 Baso # (Auto) 0 0 PT 12.2 INR 1.1 APTT 38 H Sodium 137 Potassium 4.3 Chloride 97 L Carbon Dioxide 34 H BUN 27 H Creatinine 0.64 Estimated GFR > 60 BUN/Creatinine Ratio 42.2 H Glucose 116 H Lactate 2.1 1.6 Calcium 9.4 Magnesium 1.9 Total Bilirubin 0.8 AST 32 ALT 20 Alkaline Phosphatase 54 Total Creatine Kinase 68 Troponin I < 0.012 NT-Pro-B Natriuret Pep 1870 H Total Protein 6.6 Albumin 4.1 Globulin 2.5 Albumin/Globulin Ratio 1.6 Lipase 51 Assessment & Plan Assessment & Plan narrative: The pt is an 83yo woman with COPD, atrial fibrillation, CHF, iron deficiency anemia, HTN, and hx of lung cancer s/p right pneumonectomy who presented with scalp laceration after ground level fall at home. The pt states that the fall was mechanical in nature. 1) Scalp laceration: Significant blood loss prior to presentation and in the ED. Hemostatic now. - Repeat CBC in the morning to trend 2) Atrial fibrillation with RVR: Improved after IV Labetalol in the ED - Continue home Amiodarone, Amlodipine, Carvedilol - Telemetry 3) CHF: BNP elevated, although down from earlier this month. CXR without significant pulmonary edema. Has been using oxygen more frequently during the day recently. Likely mild exacerbation. High risk for fluid overload due to volume resuscitation in the ED. S/P 40mg IV Lasix. - Continue home 40mg PO Lasix - Monitor respiratory status closely, will likely need repeat IV dosing 4) Acute on chronic iron deficiency anemia due to acute blood loss: - Continue to trend H/H as above - Continue PO iron supplement 5) HTN: More hypotensive currently due to blood loss - Re-evaluate in the morning prior to AM medications 6) COPD: Stable - Continue home breathing treatments Code: Full DVT ppx: SCDs, hold Lovenox for now due to high bleed risk Diet: Cardiac Dispo: Pending stabilization H/H, HR control, stabilization of respiratory status. Anticipate 1-2 midnights. Time-Based Coding :: 45 spent with patient and on the chart (including review of chart, obtaining history, exam, reviewing outside data, placing orders, documenting exam and treatment plan, and counseling patient) on 07/29/24. PROFEE [employer] Work[employer] Document charge(s): Yes Charge Codes Initial inpatient/observation care: 22560
[2024-07-29] MEDS: LIDOCAINE 1% W/EPI 10ML 4 ML INJ (14:56)
--- NOTE | 2024-07-29 14:56 | PC.NURSE ---
RN informed MD a couple times that pt was continuing to bleed through gauze pad. MD at bedside and stated we should see if bleeding stops in a little. RN checked back and bleeding continued. Head irrigated and washed. At this time MD Marin came to bedside to staple pt head lac. [place] attempted twice and removed. Sutures then put in. Bleeding continued. attempted to cauterize w/o success.At this time Dr. Puckett was at bedside. Pt pressure noted to drop. Pt oxygen increased to 10L per MD Puckett as pt reported to feel faint. MD Peter called and sutured at bedside. 1st 500 cc NS bolus started. Pt pressure continued to drop. Stat H&H and type and screen ordered and sent down. 2nd IV placed. 2nd 500cc bolus NS started. As pt dried blood was getting cleaned up pt was noted to have a 2nd head lac. VALARIE Prather came to bedside to help place 2 lashanda at this time. Pt pressure remained stable and pt assisted to bedside commode. Pt placed in clean gown again and fresh sheets. Handoff given to Gena SOTELO. Pt off ER floor when this note was put in. Unable to scan fluids.
--- NOTE | 2024-07-29 15:08 | PC.NURSE ---
We were having difficulty getting an accurate O2 sat due to pts cold hand and circulation. There were some reading that were low @1300,1310, 1312,1315 that were in the 60's. Those were not accurate,shortly after that we got an accurate reading/pleath of 96%
--- NOTE | 2024-07-29 16:04 | PC.NURSE ---
Pt to room 209 via bed with O2 at 2L via NC in place. O2 sat 96%, denies pain, nausea, dizziness, or shortness of breath. Tele placed and ICU notified. SCD's on and running. RT in to see Pt. Skin assessed and sacral dsg applied after skin assessed for redness. Pt oriented to room, call light, bed controls, and tv controls. Bed alarm on for safety. Pt agrees to call for assistance as needed and to not get up without assistance.
--- NOTE | 2024-07-29 16:23 | PT-IP ANOTE ---
Physical Therapy order received and chart reviewed. Pt admitted today after a fall with head laceration. Pt reports feeling tired this afternoon and does not feel ready to start Physical therapy. She has been up ambulating to the bathroom with nursing using the FWW today. Will plan to see her for evaluation tomorrow. She lives alone and is independent with a hurrycane at baseline.
[2024-07-29] MEDS: BUDESONIDE 0.5 MG/2 ML NEB INH (19:33)
[2024-07-29] MEDS: ATORVASTATIN 20 MG TABLET 10 MG PO (21:03)
[2024-07-29] MEDS: carvediloL 3.125 MG TABLET PO (21:03)
[2024-07-29] MEDS: ACETAMINOPHEN 325 MG TABLET 650 MG PO (23:49)
[2024-07-30] VITALS (9 sets, daily range): BP systolic 94–118; BP diastolic 51–83; PULSE 92–109; RESP 16–18; TEMP 36.5–37.5; O2SAT 93–99
[2024-07-30 04:57] LABS: Add Manual Diff / Slide Review NO; Basophils Absolute Auto 0 /uL (0-100); Basophils Percent Auto 0.4 % (0-2); Eosinophils Absolute Auto 100 /uL (0-450); Eosinophils Percent Auto 0.8 % (2-4); Hematocrit 27.3 % (36-46); Hemoglobin 9.1 g/dL (12.0-16.0); Lymphocytes Absolute Auto 1200 /uL (1100-4500); Lymphocytes Percent Auto 18.3 % (25-40); Mean Corpuscular HGB Conc 33.4 % (30-36); Mean Corpuscular Hemoglobin 30.3 PG (26-34); Mean Corpuscular Volume 90.7 fL (80-100); Monocytes Absolute Auto 800 /uL (0-900); Neutrophils Absolute Auto 4600 /uL (1500-7000); Neutrophils Percent Auto 68.5 % (50-75); Platelet Count 175 X10^3/uL (150-400); Red Blood Cell Count 3.01 X10^6/uL (4.0-5.2); White Blood Cell Count 6.7 X10^3/uL (4.5-11.0)
[2024-07-30] MEDS: ACETAMINOPHEN 325 MG TABLET 650 MG PO ×2 (06:32→21:07)
[2024-07-30] MEDS: IPRATROPIUM 0.5 MG/2.5 ML NEB INH (08:50)
[2024-07-30] MEDS: BUDESONIDE 0.5 MG/2 ML NEB INH (08:50)
--- NOTE | 2024-07-30 09:45 | PT.IIE ---
Surgical History (Last Reviewed 07/22/24 @ 15:50 by Jayla Fraser DO) Anesthesia History of bilateral salpingo-oophorectomy (BSO) History of breast augmentation (1992) History of hip replacement (01/2013) History of oophorectomy (1994) History of pneumonectomy (05/23/08) Status post hysterectomy (1994) Medical History (Last Reviewed 07/22/24 @ 15:50 by Jayla Fraser DO) Atrial fibrillation (2013) Atrial fibrillation with RVR COPD (chronic obstructive pulmonary disease) Easy bruisability History of cardioversion Hypertension Lung cancer (2006) Osteoarthritis Osteoporosis (2015) Ovarian cancer (1994) Raynauds syndrome (12/14/10) Uterine cancer (1994) Physical Therapy Inpatient Evaluation/Re-Eval M1 PT/OT-IP Prior Functional Status Start: 07/30/24 10:29 Freq: NEEDED Status: Active Protocol: Document 07/30/24 09:45 DLM (Rec: 07/30/24 10:52 DLM Desktop) Medical Review Prior Functional Status Medical History Reviewed Yes Diet/Fluid Consistency Regular Communication WFL, hearing aides used Mobility and Gait Independent with hurry cane, has 4WW to use as needed She exercises regularly in Cardiopulmonary rehab, uses 2 LPM oxygen when exercising. She uses oxygen at night at home but not usually during day. 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 can stay on main level of house, 2 steps to enter with bilateral rails Home Environment High Toilet,Walk in Shower Home Equipment Front Wheel Walker,Four Wheel Walker,Straight Cane,Shower Seat with Backrest,Grab Bars Near Toilet,Grab Bars In Shower Employment Status Retired Additional Social History Comment home oxygen M2 PT-IP Current Condition Start: 07/30/24 10:29 Freq: NEEDED Status: Active Protocol: Document 07/30/24 09:45 DLM (Rec: 07/30/24 10:52 DLM Desktop) Physical Therapy Current Condition Current Condition Evaluation Date 07/30/24 Treatment Diagnosis fall with head laceration, impaired gait M3 PT-IP Subjective Start: 07/30/24 10:29 Freq: NEEDED Status: Active Protocol: Document 07/30/24 09:45 DLM (Rec: 07/30/24 10:52 DLM Desktop) Subjective Physical Therapy Visit Type Type Initial Evaluation Visit Start Time 09:05 Visit Stop Time 09:45 Notes 40 min Number of ROBOTICS MECHANIC Visits 0 M4 PT-IP Mobility and Gait Start: 07/30/24 10:29 Freq: NEEDED Status: Active Protocol: Document 07/30/24 09:45 DLM (Rec: 07/30/24 10:52 DLM Desktop) PT-Transfer Assessment Sit to and From Stand Sit to and from Stand Independent,Use of Upper Extremities Equipment Transfer Assistive Device Gait Belt,Front Wheeled Walker Transfers Transfer Destination Chair,Toilet Transfer Technique Stand Step Pivot Transfer Ability Level of Assist Standby Assistance Comments Mobility Comments Pt is up in the recliner for breakfast, she reports need to use the toilet for BM and urination before gait in the [place]. Pt able to manage her underpants and cleanup for toileting on her own. No light-headedness when up. No shortness of breath with going to/from bathroom on room air. Pt wanting to stay up in recliner after gait this visit . Gait Assessment Gait Gait Assistance Required: Standby Assistance Distance (Feet) 250 Assistive Devices Assistive Device Gait Belt,Front Wheeled Walker Factors Limiting Gait Function Factors Limiting Gait Function Decreased Activity Tolerance, Respiratory Distress Comments Gait Comments pt wants to use the FWW for gait this visit, gait attempted without oxygen but pt feeling short of breath and wanted to use 2 LPM oxygen like she does when she exercises at baseline, improved gait tolerance with use of the 2 LPM supplemental oxygen. Pt assisted with oxygen tank during gait this visit. Stair Climbing Assessment Evaluation Level of Assist On Stairs Standby Assistance Devices Stair Climbing Assistive Devices Left Railing,Right Railing Technique/Endurance Stair Climbing Direction Ascend and Descend Stair Climbing Technique Step Over Step Number of Steps Climbed 3 Query Text: Stair Climbing Set # Repetitions (reps) 1 PT-Balance Assessment Sitting Balance and Reactions Static Sitting Balance Ability Normal Dynamic Sitting Balance Ability Normal Standing Balance and Reactions Static Standing Balance Ability Good Dynamic Standing Balance Ability Good Device Used FWW Comments Other Balance Tests/Deviations/Treatment pt wants to use the FWW at : this time M5 PT-IP Objective Assessments Start: 07/30/24 10:29 Freq: NEEDED Status: Active Protocol: Document 07/30/24 09:45 DLM (Rec: 07/30/24 10:52 DLM Desktop) Orientation Orientation/Cognition Level of Alertness Alert Orientation Name,Age,Birthday,Month,Date, Year,Day of Week,Place, Situation Language Function Ability Hard of Hearing Safety Awareness Understands Safety Issues Memory Description No Deficits Noted Gross Range of Motion Upper Extremity ROM Assessment Bilaterally Impaired Impairments chronic bilateral shoulder flexion limitations, right 100 degrees, left 90 degrees with crepitus Lower Extremity ROM Assessment Within Functional Limits Strength Upper Extremity Strength Assessment Bilaterally Impaired Shoulder shoulder flex 3/5 on right and 3-/5 on left, crepitus on left Lower Extremity Strength Assessment Within Functional Limits Cervical Spine AROM: flex 75%, extension 50%, Rotation 50% bilaterally, sidebending is 20% bilaterally She describes new onset of cervical tightness since her fall yesterday. No radicular symptoms reported in bilateral UE's Coordination Assessment Gross Coordination Gross Coordination WNL Sensation Assessment Sensation Gross Sensation WNL Muscle Tone Muscle Tone WNL Yes M6 PT-IP Treatment Start: 07/30/24 10:29 Freq: NEEDED Status: Active Protocol: Document 07/30/24 09:45 DLM (Rec: 07/30/24 10:52 DLM Desktop) Physical Therapy Treatment Education Education Provided Safety Other Treatments Other Treatment Performed education on possible cervical strain from fall started active ROM exercises for cervical spine to manage tightness, warm blanket applied to neck area Pt is doing active LE exercises on her own sitting in the chair. Discussed possible use of voice activation services on her cell phone to help her call for help after falling since she reports having difficulty with this after falling at home. M7 PT-IP Assessment and Plan Start: 07/30/24 10:29 Freq: NEEDED Status: Active Protocol: Document 07/30/24 09:45 DLM (Rec: 07/30/24 10:52 DLM Desktop) PT Summary Assessment and Plan Potential Rehabilitation Potential Good Status of Condition at Evaluation Evolving Summary Impairments Pain,ROM,Balance,Bed Mobility, Transfers,Gait,Activity Tolerance Assessment Summary Pat is alert and sitting up in the recliner finishing breakfast today. She reports no pain in her head in location of her laceration. She continues to have decreased H&H today ( Hemoglobin 9.1 and Hematocrit 27.3). She demonstrates safe use of the FWW for gait this visit. She reports feeling short of breath during gait and requested to wear her oxygen at 2 LPM for gait. Unclear if her new anemia from blood loss is contributing to her increased shortness of breath with gait. She typically uses supplemental oxygen when exercising and at night at home. She demonstrates good functional strength to get up and down 3 steps which is enough to get her into her house at discharge. She reports having good support at home from friends/neighbors. She has a neighbor visiting this morning . Recommend discharge home with assist when she is medically stable. Medical team will need to clear her to return to out-pt Cardiopulmonary program when they feels she is medically ready. Suspect pt has a new cervical strain associated with her fall and hitting her head. If this continues to be a problem after discharge she may need out-pt Physical Therapy for treatment on her neck. Goals Bed Mobility Goal Independent Transfer Goal Independent,Cane,Front Wheeled Walker Gait Goal Independent,Cane,Front Wheel Walker Gait Distance 150 feet Days to Meet Goals 2 Frequency of Treatment Frequency Of Treatment Twice a Day Treatment Plan Physical Therapy Treatment Plan Bed Mobility Training,Transfer Training,Gait Training, Therapeutic Exercise,Balance Retraining,Discharge Planning, Hot or Cold Pack,Neuromuscular Re-ed,Manual Therapy Precautions Other Precautions laceration posterior head on left new neck pain/stiffness since fall chronic bilateral shoulder impairments Recommendations To Nursing Amount of Assist Needed Standby Assistance Discharge Recommendations PT Discharge Recommendations Home with Assistance Other Discharge Recommendations has supportive friends/ neighbors to help Transportation Needs at Discharge Private Vehicle - PT assist 1
[2024-07-30] MEDS: ASPIRIN EC 81 MG TABLET PO (10:02)
[2024-07-30] MEDS: AMLODIPINE 5 MG TABLET 2.5 MG PO (10:02)
[2024-07-30] MEDS: FUROSEMIDE 40 MG TABLET PO (10:02)
[2024-07-30] MEDS: POTASSIUM CHLORIDE 20 MEQ TAB PO (10:02)
[2024-07-30] MEDS: carvediloL 3.125 MG TABLET PO ×2 (10:02→21:07)
--- NOTE | 2024-07-30 10:02 | PM.PN.IH.1 ---
Subjective Subjective Date Patient Seen: 07/30/24 Time Patient Seen: 10:02 Interval history: The pt reports overall feeling improved this morning. She denies any SOB or lightheadedness at rest. She does continue to have some SOB with ambulation, and is requiring her oxygen. She states that she feels weaker than usual. She denies any chest pain. Exam Vital Signs (past 8 hours): - 07/30/24 04:00 07/30/24 08:50 Temperature 97.7 F Pulse Rate 96 H 109 H Respiratory Rate 16 18 Blood Pressure 118/83 Pulse Oximetry 99 93 Oxygen Delivery Method Nasal Cannula Oxygen Flow Rate 2 2 Fraction of Inspired Oxygen 28 Fraction of Inspired Oxygen 28 SaO2/FiO2 Ratio 332 Oxygen Delivery Method Nasal Cannula Oxygen Flow Rate 2 Narrative Exam Narrative: Gen: NAD, sitting comfortably in chair, alert and speaking easily in complete sentences HEENT: normacephalic, left superior occipito-parietal laceration scabbed CV: irregularly irregular rhythm, normal rate Resp: clear to auscultation, mild crackles left base Abd: soft, nontender, nondistended Ext: 1+ edema, compression socks on Neuro: no gross deficits Objective Labs 07/30/24 04:03 07/29/24 09:50 Labs: Laboratory Results - last 24 hr 07/29/24 07/29/24 07/29/24 09:50 11:52 13:05 WBC 7.0 11.4 H D RBC 4.04 3.65 L Hgb 12.1 10.8 L Hct 37.4 33.3 L MCV 92.5 91.5 MCH 29.8 29.7 MCHC 32.3 32.5 RDW 14.0 13.8 Plt Count 234 220 Neut % (Auto) 78.8 H 83.4 H Lymph % (Auto) 12.0 L 8.7 L Dickey % (Auto) 8.2 7.3 Eos % (Auto) 0.5 L 0.3 L Baso % (Auto) 0.5 0.3 Neut # (Auto) 5500 9500 H Lymph # (Auto) 800 L 1000 L Dickey # (Auto) 600 800 Eos # (Auto) 0 0 Baso # (Auto) 0 0 PT 12.2 INR 1.1 APTT 38 H Sodium 137 Potassium 4.3 Chloride 97 L Carbon Dioxide 34 H BUN 27 H Creatinine 0.64 Estimated GFR > 60 BUN/Creatinine Ratio 42.2 H Glucose 116 H Lactate 2.1 1.6 Calcium 9.4 Magnesium 1.9 Total Bilirubin 0.8 AST 32 ALT 20 Alkaline Phosphatase 54 Total Creatine Kinase 68 Troponin I < 0.012 NT-Pro-B Natriuret Pep 1870 H Total Protein 6.6 Albumin 4.1 Globulin 2.5 Albumin/Globulin Ratio 1.6 Lipase 51 Blood Type Antibody Screen 07/29/24 07/30/24 13:12 04:03 WBC 6.7 RBC 3.01 L Hgb 9.1 L Hct 27.3 L MCV 90.7 MCH 30.3 MCHC 33.4 RDW 14.0 Plt Count 175 Neut % (Auto) 68.5 Lymph % (Auto) 18.3 L Dickey % (Auto) 12.0 Eos % (Auto) 0.8 L Baso % (Auto) 0.4 Neut # (Auto) 4600 Lymph # (Auto) 1200 Dickey # (Auto) 800 Eos # (Auto) 100 Baso # (Auto) 0 PT INR APTT Sodium Potassium Chloride Carbon Dioxide BUN Creatinine Estimated GFR BUN/Creatinine Ratio Glucose Lactate Calcium Magnesium Total Bilirubin AST ALT Alkaline Phosphatase Total Creatine Kinase Troponin I NT-Pro-B Natriuret Pep Total Protein Albumin Globulin Albumin/Globulin Ratio Lipase Blood Type A Negative Antibody Screen Negative [facility] Medical History Easy bruisability History of cardioversion Raynauds syndrome (12/14/10) Atrial fibrillation with RVR COPD (chronic obstructive pulmonary disease) Uterine cancer (1994) Ovarian cancer (1994) Osteoporosis (2015) Osteoarthritis Atrial fibrillation (2013) Hypertension Lung cancer (2006) Surgical History Anesthesia History of pneumonectomy (05/23/08) History of oophorectomy (1994) History of hip replacement (01/2013) History of breast augmentation (1992) History of bilateral salpingo-oophorectomy (BSO) Status post hysterectomy (1994) Family History Father Hypertension Prostate cancer Grandfather Stroke Grandmother Diabetes mellitus Mother Diabetes mellitus, type II Hypertension Stroke Grandfather No problems noted. Grandmother No problems noted. Social History marital status: unmarried,single household members: none lives independently: Yes pets and animals: Yes education level: college occupational status: other Smoking Status: Former smoker Tobacco: How many years used: 19 second hand exposure: No alcohol intake: current substance use type: does not use Assessment & Plan Assessment & Plan narrative: The pt is an 83yo woman with COPD, atrial fibrillation, CHF, iron deficiency anemia, HTN, and hx of lung cancer s/p right pneumonectomy who presented with scalp laceration after ground level fall at home. The pt states that the fall was mechanical in nature. 1) Scalp laceration: Significant blood loss prior to presentation and in the ED. Hemostatic. 2) Atrial fibrillation with RVR: Improved after IV Labetalol in the ED. Rate stable now. - Continue home Amiodarone, Amlodipine, Carvedilol - Telemetry 3) CHF: BNP elevated, although down from earlier this month. CXR without significant pulmonary edema. Has been using oxygen more frequently during the day recently. Likely mild exacerbation. High risk for fluid overload due to volume resuscitation in the ED. S/P 40mg IV Lasix in the ED. Ongoing SOB compared to baseline. - Continue home 40mg PO Lasix - Repeat IV Lasix today 4) Acute on chronic iron deficiency anemia due to acute blood loss: H/H with expected drop overnight - Continue to trend H/H - Continue PO iron supplement, increase to BID dosing 5) HTN: Stable - Continue home medications 6) COPD: Stable - Continue home breathing treatments Code: Full DVT ppx: SCDs, hold Lovenox for now due to high bleed risk Diet: Cardiac Dispo: Pending stabilization H/H, HR control, stabilization of respiratory status. Anticipate one more night. Time-Based Coding :: [TOTAL MINUTES] spent with patient and on the chart (including review of chart, obtaining history, exam, reviewing outside data, placing orders, documenting exam and treatment plan, and counseling patient) on [DATE]. PROFEE Patient Services Coordinator Document charge(s): Yes Charge Codes Subsequent inpatient/observation care: [id number]
[2024-07-30] MEDS: FERROUS SULFATE 325 MG TABLET PO ×2 (10:10→17:40)
[2024-07-30] MEDS: AMIODARONE 200 MG TABLET PO (10:10)
[2024-07-30] MEDS: FUROSEMIDE 40 MG/4 ML VIAL IV (11:12)
--- NOTE | 2024-07-30 12:19 | OT.IP.EVAL ---
Past Medical History (Last Reviewed 07/22/24 @ 15:50 by Jayla Fraser DO) Atrial fibrillation (2013) Atrial fibrillation with RVR COPD (chronic obstructive pulmonary disease) Easy bruisability History of cardioversion Hypertension Lung cancer (2006) Osteoarthritis Osteoporosis (2015) Ovarian cancer (1994) Raynauds syndrome (12/14/10) Uterine cancer (1994) Surgical History (Last Reviewed 07/22/24 @ 15:50 by Jayla Fraser DO) Anesthesia History of bilateral salpingo-oophorectomy (BSO) History of breast augmentation (1992) History of hip replacement (01/2013) History of oophorectomy (1994) History of pneumonectomy (05/23/08) Status post hysterectomy (1994) Occupational Therapy Inpatient Evaluation/Re-Eval M1 PT/OT-IP Prior Functional Status Start: 07/30/24 10:29 Freq: NEEDED Status: Active Protocol: Document 07/30/24 13:15 [facility] (Rec: 07/30/24 13:36 [facility] Desktop) Medical Review Prior Functional Status Medical History Reviewed Yes Diet/Fluid Consistency Regular Communication WFL, hearing aides used Mobility and Gait Independent with hurry cane, has 4WW to use as needed She exercises regularly in Cardiopulmonary rehab, uses 2 LPM oxygen when exercising. She uses oxygen at night at home but not usually during day. 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 can stay on main level of house, 2 steps to enter with bilateral rails Home Environment High Toilet,Walk in Shower Home Equipment Front Wheel Walker,Four Wheel Walker,Straight Cane,Shower Seat with Backrest,Grab Bars Near Toilet,Grab Bars In Shower Employment Status Retired Additional Social History Comment home oxygen M2 OT-IP Current Condition Start: 07/30/24 12:33 Freq: Status: Active Protocol: Document 07/30/24 13:15 [facility] (Rec: 07/30/24 13:36 [facility] Desktop) Occupational Therapy Current Condition Current Condition Evaluation Date 07/30/24 Treatment Diagnosis GLF with head laceration Diagnosis Onset Date 07/29/24 M3 OT- IP Subjective and Pain Start: 07/30/24 12:33 Freq: Status: Active Protocol: Document 07/30/24 13:15 [facility] (Rec: 07/30/24 13:36 [facility] Desktop) OT- Subjective Occupational Therapy Visit Type Type Initial Evaluation Visit Start Time 11:48 Visit Stop Time 12:19 Occupational Therapy Visit Comments Patient Comments Pt agreed to get up to use the bathroom. Patient/Caregiver Goals To go home. OT Pain Assessment Location Neck Pain Behaviors Facial Grimacing,Holding Area M4 OT- IP ADL's Start: 07/30/24 12:33 Freq: Status: Active Protocol: Document 07/30/24 13:15 [facility] (Rec: 07/30/24 13:36 [facility] Desktop) OT [id number] General Evaluation Self-Feeding Ability Independent OT ADL-Grooming General Evaluation Grooming Ability Minimal Assistance Comments OT Grooming Comments Able to do while standing at the sink with the FWW. Due to pt's neck pain , pt having difficulty to reach up to brush her hair. Able to have pt look up on [employer] for long handled comb that she is looking to get. OT ADL-Oral Care General Eval Oral Care Ability Independent OT ADL-Dressing Comments OT Dressing Comments Pt uses sock Bulter socks and has all LB dressing needs at home. OT ADL-Toileting General Evaluation Toileting Ability Standby Assistance Comments OT Toileting Comments Pt able to use the toilet with SBA and just needing set-up assist for wipes. OT ADL-Bathing Comments OT Bathing Comments Not performed. Pt may benefit from friend to be present initially. M5 OT- IP IADL's Start: 07/30/24 12:33 Freq: Status: Active Protocol: Document 07/30/24 13:15 [facility] (Rec: 07/30/24 13:36 [facility] Desktop) OT-Instrumental Activities of Daily Living Home Safety Awareness Awareness of Need for Assistance at Home Good Awareness Ability to Problem Solve Emergency Able to Problem Solve Situations Medication Management Medication Management No Deficits Identified Money Management Money Management No Deficits Identified Meal Preparation Meal Preparation Comments Pt may benefit from assist. Pit Shovel Operator Pit Shovel Operator Comments Pt may benefit from assist. Driving Driving Comments Pt states will hold off on driving at this time after completing Deport Making Part B . M6 OT- IP Functional Cognition Start: 07/30/24 12:33 Freq: Status: Active Protocol: Document 07/30/24 13:15 [facility] (Rec: 07/30/24 13:36 [facility] Desktop) Cognitive Factors Limiting Selfcare Function Cognitive Ability Level of Alertness Alert Patient Orientation Name Attention Span Ability Capable of Focused Attention, Capable of Sustained Attention Ability to Follow Commands Able to Follow One Step Commands Memory Description No Deficits Noted Safety Awareness No Deficits Noted Problem Solving Ability No deficits Noted Executive Function Ability Unable to Remember Details Cognitive Tests SLUMS Pt scored 27/30 which implies normal for cognition. Pt able to recall 4/5 objects and able to answer 3/4 questions right after paragraph read. Cognitive Comments Cognitive Assessment Comments Pt scored 110seconds on Deport Making Part B which implies mild/MOD impairments for visual attention, speed of processing, executive functioning, problem solving, and task switching. Pt however did hit the back of her head during her fall. Pt agreed best will not drive initially. OT- Vision and Hearing OT- Hearing Assessment OT- Hearing Assessment Hearing Impaired, use of hearing aids OT- Vision Assessment Visual Acuity Glasses All The Time Visual Attentiveness WFL Occular Pursuits WFL Visual Convergence WFL Visual Irizarry WFL Diplopia Present M7 OT- IP Mobility and Balance Start: 07/30/24 12:33 Freq: Status: Active Protocol: Document 07/30/24 13:15 [facility] (Rec: 07/30/24 13:36 [facility] Desktop) OT-Transfer Assessment Sit to and From Stand Sit to and from Stand Standby Assistance Transfers Transfer Ability Standby Assistance Technique Transfer Destination Chair,Toilet Transfer Technique Stand Step Pivot Devices Transfer Assistive Devices Gait Belt,Front Wheeled Walker Comments Mobility Comments SBA for mobility with FWW to get to the bathroom, sink and then back to the recliner. OT- Balance Assessment Sitting Balance and Reactions Static Sitting Balance Ability Normal Dynamic Sitting Balance Ability Good Standing Balance and Reactions Static Standing Balance Ability Good Dynamic Standing Balance Ability Good M8 OT- IP Objective Assessments Start: 07/30/24 12:33 Freq: Status: Active Protocol: Document 07/30/24 13:15 [facility] (Rec: 07/30/24 13:36 [facility] Desktop) OT Gross Range of Motion Upper Extremity Range of Motion Assessment Bilaterally Impaired OT Strength Upper Extremity Strength Assessment Bilaterally Impaired Comments Strength Comments shoulder flexion RUE 0-100, LUE 0-90 BUE 3-/5 to 4-/5 OT- Coordination Assessment Comments Coordination Comments Arthritic changes in her hands M9 OT- IP Assessment and Plan Start: 07/30/24 12:33 Freq: Status: Active Protocol: Document 07/30/24 13:15 [facility] (Rec: 07/30/24 13:36 [facility] Desktop) OT Summary Assessment and Plan Potential Rehabilitation Potential Good Analytic Complexity at Evaluation Moderate Summary OT Impairments Pain,Balance,Functional Mobility,Dressing,Toileting, Bathing,Toilet Transfers, Shower Transfers Progress Towards Goals Progressing Toward Goals,Slow Progress due to Medical Issues Assessment Summary Pt mod complexity and main barriers are decreased activity tolerance and having neck pain. Pt will benefit from getting assist from her friends as needed. Pt aware best to wait to drive at this time. Pt to go home with assist and go back to Cardiop when stable and medically cleared to return. Pt has supportive friends and neighbors to assist her as needed. Goals Self-Feeding Goal Independent Grooming Goal Independent Dressing Goal Independent,Director Of Nuclear Medicine,Sock Aid Toileting Goal Independent Bathing Goal Independent Toilet Transfer Goal Independent Shower Transfer Goal Independent Days to Meet Goals 5 Frequency of Treatment Other frequency 5x/week Treatment Plan OT Treatment Plan ADL Training,Functional Mobility,Patient/Family Education,Discharge Planning Other Treatment Recommendations and Next shower Treatment Focus Discharge Recommendations OT Discharge Recommendations Home with Assistance Home Equipment Needs Long handled comb Transportation Needs at Discharge Private Vehicle
--- NOTE | 2024-07-30 14:44 | PC.NURSE ---
Redness at/below coccyx is blanchable. Currently covered by [employer] pad signed/dated. Pt reports no pain or discomfort.
--- NOTE | 2024-07-30 14:58 | CM.DANOTE ---
Patient is an 83 yo female who was admitted OBS Status on 07/29/24 for GLF with scalp laceration and sutures. Pt has [place] and [place] for [place] and her PCP is Dr. Rosio Puckett. EMR reviewed. Per MD, pt with hx of COPD, AFIB, CHF, lung CA and has home O2 at baseline. Pt also hypotensive and anemic and not yet stable for discharge. Pt recently in the ED on 07/22/24 for mild CHF exac and UTI and failed outpt tx. Per PT/OT, recommending return home with ongoing outpt therapies. Pt able to ambulate the hallways and completed stairs. SW met bedside with pt and explained role and she confirms that she lives at home in [place] alone but has very good supportive local friends that assist as needed. Pt confirms her POAs are 1) [facility] 2) [facility]. Pt typically uses FWW or cane for longer ambulation and denies any recent hx of HH or SNF and already established at [facility] and wants to continue this at d/c. Pt with hx of GLF and last year had fx after fall. Pt preference is to d/c home with supportive friends when stable and does not anticipate any needs at d/c. Plan: SW to follow closely for plan of discharge home via friend POV when medically stable and any further identified discharge planning needs. BEKA Lund Discharge Planning/Care Management CM Discharge Assessment Start: 07/29/24 12:17 Freq: Status: Active Protocol: Document 07/30/24 14:54 [facility] (Rec: 07/30/24 14:58 [facility] [id number]) Discharge Planning Assessment Assigned Child And Family Counselor BEKA Egan DPOA/Assigned Designee Name [facility] Contact Information [phone] Advance Directives? Yes: poa Advance Directives on File Yes History Provided By Patient,Medical Record Has Patient been admitted in last 30 No days? Prior Living Arrangements House Household Members none Type of transporation used prior to Drives own vehicle admit Independent with ADL's Yes Is patient alert and oriented? Yes Caregiver for Another No Patient/Family Preference OP PT Therapy Barriers to Discharge No Discharge Plan Home Community Services Physical Therapy Transportation Arrangement own vehicle in the parking lot and friends will help get her home, already established with [facility] outpt Whiteboard Updated in Patient Room with Yes name and ext. # of Child And Family Counselor Review Status In Process Please Provide Date Initial DC 07/29/24 Assessment Was Performed Next Review Type Continued Stay Review
--- NOTE | 2024-07-30 16:27 | PT.IPTN ---
Physical Therapy Treatment Note M2 PT-IP Current Condition Start: 07/30/24 10:29 Freq: NEEDED Status: Active Protocol: Document 07/30/24 09:45 [facility] (Rec: 07/30/24 10:52 [facility] Desktop) Physical Therapy Current Condition Current Condition Evaluation Date 07/30/24 Treatment Diagnosis fall with head laceration, impaired gait M3 PT-IP Subjective Start: 07/30/24 10:29 Freq: NEEDED Status: Active Protocol: Document 07/30/24 16:27 [facility] (Rec: 07/30/24 16:48 [facility] Desktop) Subjective Physical Therapy Visit Type Type Treatment Note Visit Start Time 16:00 Visit Stop Time 16:27 Notes 27 min Number of SPOILAGE WORKER Visits 0 Physical Therapy Visit Comments Patient Comments Her neck is still stiff. She feels she needs her oxygen to walk today on 2 LPM. She has no pain in her head in area of laceration. Patient Goals discharge home M4 PT-IP Mobility and Gait Start: 07/30/24 10:29 Freq: NEEDED Status: Active Protocol: Document 07/30/24 16:27 [facility] (Rec: 07/30/24 16:48 [facility] Desktop) PT-Transfer Assessment Sit to and From Stand Sit to and from Stand Independent,Use of Upper Extremities Equipment Transfer Assistive Device Gait Belt,Front Wheeled Walker Transfers Transfer Destination Chair Transfer Technique Stand Step Pivot Transfer Ability Level of Assist Standby Assistance Comments Mobility Comments pt prefers to use the FWW this visit and 2 LPM oxygen Pt up to toilet just before this visit on room air. Gait Assessment Gait Gait Assistance Required: Standby Assistance Distance (Feet) 300 Assistive Devices Assistive Device Gait Belt,Front Wheeled Walker Factors Limiting Gait Function Factors Limiting Gait Function Decreased Activity Tolerance, Respiratory Distress Comments Gait Comments pt demonstrates safe use of FWW for gait, assisted her with oxygen tank using 2 LPM, She reports it feels good to be moving. She had no light- headedness and no dizziness with activity. PT-Balance Assessment Sitting Balance and Reactions Static Sitting Balance Ability Normal Dynamic Sitting Balance Ability Normal Standing Balance and Reactions Static Standing Balance Ability Good Dynamic Standing Balance Ability Good Device Used FWW M5 PT-IP Objective Assessments Start: 07/30/24 10:29 Freq: NEEDED Status: Active Protocol: Document 07/30/24 09:45 [facility] (Rec: 07/30/24 10:52 [facility] Desktop) Orientation Orientation/Cognition Level of Alertness Alert Orientation Name,Age,Birthday,Month,Date, Year,Day of Week,Place, Situation Language Function Ability Hard of Hearing Safety Awareness Understands Safety Issues Memory Description No Deficits Noted Gross Range of Motion Upper Extremity ROM Assessment Bilaterally Impaired Impairments chronic bilateral shoulder flexion limitations, right 100 degrees, left 90 degrees with crepitus Lower Extremity ROM Assessment Within Functional Limits Strength Upper Extremity Strength Assessment Bilaterally Impaired Shoulder shoulder flex 3/5 on right and 3-/5 on left, crepitus on left Lower Extremity Strength Assessment Within Functional Limits Coordination Assessment Gross Coordination Gross Coordination WNL Sensation Assessment Sensation Gross Sensation WNL Muscle Tone Muscle Tone WNL Yes M6 PT-IP Treatment Start: 07/30/24 10:29 Freq: NEEDED Status: Active Protocol: Document 07/30/24 16:27 [facility] (Rec: 07/30/24 16:48 [facility] Desktop) Physical Therapy Treatment Other Treatments Other Treatment Performed seated active cervical ROM exercises as tolerated by pain and stiffness (flex/ext, rotation, sidebends), pt educated to avoid rolling her neck to protect spine Warm blanket applied around her neck to manage pain and stiffness with seated in recliner. M7 PT-IP Assessment and Plan Start: 07/30/24 10:29 Freq: NEEDED Status: Active Protocol: Document 07/30/24 16:27 [facility] (Rec: 07/30/24 16:48 [facility] Desktop) PT Summary Assessment and Plan Summary Impairments Pain,ROM,Balance,Bed Mobility, Transfers,Gait,Activity Tolerance Progress Towards Goals Progressing Toward Goals Assessment Summary Pat is progressing well with activity this visit. She continues to need 2 LPM oxygen for gait with the FWW today which is not her baseline. Her blood loss anemia may be a contributing factor in her needing her oxygen more often at this time. She tolerates ambulating in the [place] well overy-all. She is tolerating gentle cervical spine range of motion exercises well to manage what appears to be a cervical strain related to her fall and hitting her head. Continue to plan for home with support of neighbors/friends when she is medically stable. Goals Bed Mobility Goal Independent Transfer Goal Independent,Cane,Front Wheeled Walker Gait Goal Independent,Cane,Front Wheel Walker Gait Distance 150 feet Days to Meet Goals 2 Frequency of Treatment Frequency Of Treatment Twice a Day Treatment Plan Physical Therapy Treatment Plan Bed Mobility Training,Transfer Training,Gait Training, Therapeutic Exercise,Balance Retraining,Discharge Planning, Hot or Cold Pack,Neuromuscular Re-ed,Manual Therapy Precautions Other Precautions laceration posterior head on left new neck pain/stiffness since fall chronic bilateral shoulder impairments Recommendations To Nursing Amount of Assist Needed Standby Assistance Discharge Recommendations PT Discharge Recommendations Home with Assistance Other Discharge Recommendations has supportive friends/ neighbors to help Transportation Needs at Discharge Private Vehicle - PT assist 1
[2024-07-30] MEDS: ATORVASTATIN 20 MG TABLET 10 MG PO (21:08)
[2024-07-31] VITALS: BP 98/65; PULSE 90; RESP 16; TEMP 36.6; O2SAT 96
[2024-07-31 04:00] VITALS: BP 96/57; PULSE 99; RESP 16; TEMP 36.6; O2SAT 100
--- NOTE | 2024-07-31 06:59 | PC.NURSE ---
Patient wearing oxymask, desats to mid 70's when wearing the nasal cannula while asleep.
[2024-07-31] MEDS: ACETAMINOPHEN 325 MG TABLET 650 MG PO (07:57)
[2024-07-31 08:00] VITALS: BP 106/69; PULSE 95; RESP 16; TEMP 36.6; O2SAT 94
[2024-07-31 08:20] VITALS: O2SAT 96
--- NOTE | 2024-07-31 08:28 | PT.IPTN ---
Addendum entered and electronically signed by Carol Plascencia PTA 07/31/24 10:27: Reported progression in tx with care mgt, recommending HHPT for progression strength and mobility with checks on O2 needed during increased exertion activities until can get into outpatient cardiopulonary rehab, was told is planned at [place]. Addendum entered and electronically signed by Carol Plascencia PTA 07/31/24 10:11: REcommending HHPT for progression in strength, balance for return to PLOF use of SPC vs 4WW. Original Note: Physical Therapy Treatment Note M2 PT-IP Current Condition Start: 07/30/24 10:29 Freq: NEEDED Status: Active Protocol: Document 07/30/24 09:45 DLM (Rec: 07/30/24 10:52 DLM Desktop) Physical Therapy Current Condition Current Condition Evaluation Date 07/30/24 Treatment Diagnosis fall with head laceration, impaired gait M3 PT-IP Subjective Start: 07/30/24 10:29 Freq: NEEDED Status: Active Protocol: Document 07/31/24 08:02 PG (Rec: 07/31/24 09:00 PG Laptop) Subjective Physical Therapy Visit Type Type Treatment Note Visit Start Time 08:02 Visit Stop Time 08:28 Notes 26 min Josy CORNEJO led tx with permission of pt and direct supervision of Carol CALABRESE. Physical Therapy Visit Comments Patient Comments Her neck is still stiff. Agreeable to do PT. Patient Goals Pt plans to return home w friend/family for support. M4 PT-IP Mobility and Gait Start: 07/30/24 10:29 Freq: NEEDED Status: Active Protocol: Document 07/31/24 08:02 PG (Rec: 07/31/24 09:00 PG Laptop) PT-Transfer Assessment Sit to and From Stand Sit to and from Stand Independent,Use of Upper Extremities Equipment Transfer Assistive Device Gait Belt,4 Wheeled Walker Transfers Transfer Destination Chair Transfer Technique Ambulated w 4WW Transfer Ability Level of Assist Standby Assistance Comments Mobility Comments Pt seated in recliner for breakfast, agreeable to participate in PT. SBA with sit <> stand transfers and demonstrates safety awareness with 4WW brakes. Gait Assessment Gait Gait Assistance Required: Standby Assistance Distance (Feet) 250 Assistive Devices Assistive Device Gait Belt,4 Wheeled Walker Factors Limiting Gait Function Factors Limiting Gait Function Decreased Activity Tolerance, Respiratory Distress Comments Gait Comments Pt demonstrated safe use of 4WW for gait. Used room air from room to hallway staircase , SaO2: 98%, increased breath to support conversation. SaO2 after stair climbin% on RA. Requested and was assisted w oxygen tank using 1 L to walk back to room. Required assistance with full tube management. Pt's Sa02 was mid 90% on 1L when return to the room. Stair Climbing Assessment Evaluation Level of Assist On Stairs Standby Assistance Devices Stair Climbing Assistive Devices Left Railing,Right Railing Technique/Endurance Stair Climbing Direction Ascend and Descend Stair Climbing Technique Step Over Step,Step to Step Number of Steps Climbed 3 Stair Climbing Set # Repetitions (reps) 1 Comments Stair Climbing Comments Pt required SBA w stair climbing. Performed step over step going up with BUE support and step to step going down with BUE support. Pt states she's uncertain when putting weight onto her LLE going downstairs. SaO2 after stair climbin% RA. Pt was short of breath but no light-headedness or dizziness. Requested oxygen 2LPM for walk back to room. PT-Balance Assessment Sitting Balance and Reactions Static Sitting Balance Ability Normal Dynamic Sitting Balance Ability Normal Standing Balance and Reactions Static Standing Balance Ability Good Dynamic Standing Balance Ability Good Device Used 4WW M5 PT-IP Objective Assessments Start: 07/30/24 10:29 Freq: NEEDED Status: Active Protocol: Document 07/30/24 09:45 DLM (Rec: 07/30/24 10:52 DLM Desktop) Orientation Orientation/Cognition Level of Alertness Alert Orientation Name,Age,Birthday,Month,Date, Year,Day of Week,Place, Situation Language Function Ability Hard of Hearing Safety Awareness Understands Safety Issues Memory Description No Deficits Noted Gross Range of Motion Upper Extremity ROM Assessment Bilaterally Impaired Impairments chronic bilateral shoulder flexion limitations, right 100 degrees, left 90 degrees with crepitus Lower Extremity ROM Assessment Within Functional Limits Strength Upper Extremity Strength Assessment Bilaterally Impaired Shoulder shoulder flex 3/5 on right and 3-/5 on left, crepitus on left Lower Extremity Strength Assessment Within Functional Limits Coordination Assessment Gross Coordination Gross Coordination WNL Sensation Assessment Sensation Gross Sensation WNL Muscle Tone Muscle Tone WNL Yes M6 PT-IP Treatment Start: 07/30/24 10:29 Freq: NEEDED Status: Active Protocol: Document 07/31/24 08:02 PG (Rec: 07/31/24 09:00 PG Laptop) Physical Therapy Treatment Other Treatments Other Treatment Performed Continued with c/s ROM exercises as tolerated to help promote mobility, and reduction of tightness and stiffness in neck. Cued for pt to decrease use of UT's. M7 PT-IP Assessment and Plan Start: 07/30/24 10:29 Freq: NEEDED Status: Active Protocol: Document 07/31/24 08:02 PG (Rec: 07/31/24 09:00 PG Laptop) PT Summary Assessment and Plan Potential Rehabilitation Potential Good Status of Condition at Evaluation Evolving Summary Impairments Pain,ROM,Balance,Bed Mobility, Transfers,Gait,Activity Tolerance Progress Towards Goals Progressing Toward Goals Assessment Summary Dr. Puckett attended half of the tx. Mariana continues to progress well with activity this visit. She continues to need 1 L oxygen as needed for gait/stairs with the 4WW due to SOB and energy conservation , Today 88-98% on RA, which is not her baseline. Completed all transfers and mobility with SBA x 4WW. Good safety awareness with walker but did require help with Oxygen tank and tube management. Goals Bed Mobility Goal Independent Transfer Goal Independent,Cane,Front Wheeled Walker Gait Goal Independent,Cane,Front Wheel Walker Gait Distance 150 feet Days to Meet Goals 2 Frequency of Treatment Frequency Of Treatment Twice a Day Treatment Plan Physical Therapy Treatment Plan Bed Mobility Training,Transfer Training,Gait Training, Therapeutic Exercise,Balance Retraining,Discharge Planning, Hot or Cold Pack,Neuromuscular Re-ed,Manual Therapy Other Recommendations and Next Treatment monitor VSS during session Focus amb as crisatl without AD climb 1 step without railing Precautions Other Precautions laceration posterior head on left new neck pain/stiffness since fall chronic bilateral shoulder impairments Discharge Recommendations PT Discharge Recommendations Home with Assistance Other Discharge Recommendations has supportive friends/ neighbors to help Transportation Needs at Discharge Private Vehicle - PT assist 1
[2024-07-31 08:31] LABS: Add Manual Diff / Slide Review NO; Basophils Absolute Auto 0 /uL (0-100); Basophils Percent Auto 0.4 % (0-2); Eosinophils Absolute Auto 200 /uL (0-450); Hematocrit 31.6 % (36-46); Hemoglobin 10.3 g/dL (12.0-16.0); Lymphocytes Absolute Auto 1200 /uL (1100-4500); Lymphocytes Percent Auto 14.9 % (25-40); Mean Corpuscular HGB Conc 32.6 % (30-36); Mean Corpuscular Hemoglobin 29.9 PG (26-34); Mean Corpuscular Volume 91.7 fL (80-100); Monocytes Absolute Auto 800 /uL (0-900); Neutrophils Absolute Auto 5800 /uL (1500-7000); Neutrophils Percent Auto 72.7 % (50-75); Platelet Count 205 X10^3/uL (150-400); Red Blood Cell Count 3.45 X10^6/uL (4.0-5.2); Red Cell Distribution Width 13.8 % (11.6-14.8)
--- NOTE | 2024-07-31 08:40 | P.DS_ITS ---
History of Present Illness History of Present Illness Date Patient Seen: 07/31/24 Chief complaint: GLF Narrative: The pt is an 83yo woman with COPD, atrial fibrillation, CHF, iron deficiency anemia, HTN, and hx of lung cancer s/p right pneumonectomy who presented with scalp bleeding after ground level fall at home. The pt reports that this morning she was feeling slightly lightheaded. She was reaching for her oxygen to put it on and she tripped and fell. She hit her head on her bedside table. She denies any LOC, but states her head started bleeding profusely. She denies any other pains in her body at this time, other than some neck stiffness. She denies any associated chest pain, palpitations. The pt was seen in the ED on 07/22 due to worsening SOB. The pt was ultimately diagnosed with a mild CHF exacerbation, and discharge home on increased Lasix after improvement from single dose of IV Lasix. She was also diagnosed with a UTI which was treated with antibiotics. The pt states that in general at home she has remained more SOB than usual. She has been using her oxygen frequently during the day, when she typically only needs it at night or when exerting herself more. She has felt lightheaded on occasion at home recently, but this quickly improves with oxygen supplementation. In the ED, the pt was noted to have stable labs. BNP was elevated to 1870, down from 2290 on 07/22. CXR, CT head and c-spine were all normal. Attempts to control bleeding from the scalp laceration with pressure were unsuccessful. Ultimately surgery was contacted and bleeding was controlled with sutures. During this time, the pt became hypotensive. Her BP did respond to fluid resuscitation. Discharge Providers Provider Date of admission: 07/29/24 11:51 Discharge Date: 07/31/24 Primary care physician: Rosio Puckett MD Consults: 07/29/24 15:01 Consult to Occupational Therapy Evaluate & Treat Comment: Physician Instructions: Evaluate and treat Consult to Physical Therapy Evaluate & Treat Comment: Physician Instructions: Evaluate and Treat Discharge provider: Rosio Puckett MD Summary Hospital Course Discharge Diagnosis: 1) Scalp laceration 2) Atrial fibrillation with RVR 3) CHF 4) Acute on chronic iron deficiency anemia due to acute blood loss: 5) HTN 6) COPD Hospital Course: The pt presented after ground level fall at home with scalp laceration. She lost a significant amount of blood, however stabilized with fluid resuscitation. Her H/H fell, but improved on PO iron supplementation. The pt was in afib with RVR in the ED. This was controlled with IV Labetalol in the ED. While inpatient, her HR remained in acceptable range on her usual home medications. The pt required a total of 80mg IV Lasix for volume control, and at the time of discharge was back to her usual home oxygen requirements. She will discharge home stable, with instructions to continue daily iron supplementation. Status at Discharge Cognitive/behavioral status at discharge: oriented Functional status at discharge: uses cane/walker Overall status at discharge: patient is back to baseline Exam Vital Signs (past 8 hours): - 07/31/24 04:00 Temperature 97.8 F Pulse Rate 99 H Respiratory Rate 16 Blood Pressure 96/57 L Pulse Oximetry 100 Oxygen Flow Rate 2 Fraction of Inspired Oxygen 28 SaO2/FiO2 Ratio 332 Oxygen Delivery Method Nasal Cannula Oxygen Flow Rate 2 Narrative Exam Narrative: Gen: NAD, sitting comfortably in chair, alert and speaking easily in complete sentences HEENT: normacephalic, left superior occipito-parietal laceration scabbed CV: irregularly irregular rhythm, normal rate Resp: clear to auscultation, no crackles or wheezes Abd: soft, nontender, nondistended Ext: no edema, compression socks on Neuro: no gross deficits Objective Labs 07/31/24 08:22 07/29/24 09:50 Labs: Laboratory Results - last 24 hr 07/31/24 08:22 WBC 8.0 RBC 3.45 L Hgb 10.3 L Hct 31.6 L MCV 91.7 MCH 29.9 MCHC 32.6 RDW 13.8 Plt Count 205 Neut % (Auto) 72.7 Lymph % (Auto) 14.9 L [place] % (Auto) 10.0 Eos % (Auto) 2.0 Baso % (Auto) 0.4 Neut # (Auto) 5800 Lymph # (Auto) 1200 [place] # (Auto) 800 Eos # (Auto) 200 Baso # (Auto) 0 PFSH Medical History Easy bruisability History of cardioversion Raynauds syndrome (12/14/10) Atrial fibrillation with RVR COPD (chronic obstructive pulmonary disease) Uterine cancer (1994) Ovarian cancer (1994) Osteoporosis (2015) Osteoarthritis Atrial fibrillation (2013) Hypertension Lung cancer (2006) Surgical History Anesthesia History of pneumonectomy (05/23/08) History of oophorectomy (1994) History of hip replacement (01/2013) History of breast augmentation (1992) History of bilateral salpingo-oophorectomy (BSO) Status post hysterectomy (1994) Family History Father Hypertension Prostate cancer Grandfather Stroke Grandmother Diabetes mellitus Mother Diabetes mellitus, type II Hypertension Stroke Grandfather No problems noted. Grandmother No problems noted. Social History marital status: unmarried,single household members: none lives independently: Yes pets and animals: Yes education level: college occupational status: other Smoking Status: Former smoker Tobacco: How many years used: 19 second hand exposure: No alcohol intake: current substance use type: does not use Discharge Plan Discharge Plan Patient Disposition: Home Discharge orders & Medications Prescriptions: Continued (DME) Disabled Parking See Rx Instructions .ROUTE .MEDSUPPLY Qty: 1 0RF Rx Instructions: I find this patient to be medically disabled and qualified for Permanent Disabled Parking as indicated, and signed, on the Accompanying Disabled Parking Application for Individuals Pulmicort Flexhaler 180 mcg/actuation aerosol powdr breath activated 1 inh inhalation BID Qty: 2 3RF tiotropium bromide 18 mcg capsule, w/inhalation device 1 cap inhalation DAILY Qty: 90 3RF Rx Instructions: puncture 1 cap using device; one dose = 2 inhalations furosemide 40 mg tablet 40 mg PO QAM Qty: 90 3RF atorvastatin 20 mg tablet 10 mg PO BEDTIME Qty: 45 0RF (DME) Supplemental Oxygen 2 L/min aerosol See Rx Instructions .Route .MEDSUPPLY Qty: 1 0RF Rx Instructions: As directed To keep O2 sats above 88% calcium carbonate-vitamin D3 [Calcium 600 + D(3)] 600 mg(1,500mg) -200 unit Tablet 2 tab PO DAILY multivitamin with minerals Tablet 1 tab PO DAILY amiodarone 200 mg tablet 200 mg PO DAILY carvedilol 3.125 mg tablet 3.125 mg PO BID potassium chloride 20 mEq tablet extended release 20 meq PO BEDTIME amlodipine 2.5 mg Tablet 2.5 mg PO DAILY acetaminophen 325 mg Tablet 650 mg PO Q6H PRN (Reason: Fever/Mild Pain (1-3)) Qty: 90 0RF aspirin 81 mg capsule 81 mg PO DAILY Qty: 90 0RF albuterol sulfate 90 mcg/actuation HFA aerosol inhaler 2 puff inhalation Q4-6H PRN (Reason: shortness of breath or wheezing) Qty: 6.7 2RF Changed ferrous sulfate 325 mg (65 mg iron) tablet 325 mg PO DAILY Qty: 30 0RF Discontinued furosemide [Lasix] 40 mg tablet 40 mg PO DAILY Qty: 3 0RF nitrofurantoin monohyd/m-cryst [Macrobid] 100 mg capsule 100 mg PO Q12H 5 Days Qty: 10 0RF Rx Instructions: must administer with a meal/food Follow up/Referrals: Rosio Puckett MD [Primary Care Provider] - 1 Week Diet/Activity/Treatments Diet: Diet as Tolerated and Regular Visit Report/Discharge Packet Stand Alone Forms: Patient Portal/API, Stroke Signs & Symptoms Discharge Data Primary Care Provider: Rosio Puckett Attending Provider: Rosio Puckett Admit Date/Time: 07/29/24 11:51 [facility] Charge Codes Discharge inpatient/observation: [id number]
[2024-07-31 08:46] VITALS: BP 116/70; PULSE 102
[2024-07-31] MEDS: FERROUS SULFATE 325 MG TABLET PO (08:46)
[2024-07-31] MEDS: carvediloL 3.125 MG TABLET PO (08:46)
[2024-07-31] MEDS: FUROSEMIDE 40 MG TABLET PO (08:46)
[2024-07-31] MEDS: POTASSIUM CHLORIDE 20 MEQ TAB PO (08:47)
[2024-07-31] MEDS: AMIODARONE 200 MG TABLET PO (08:47)
[2024-07-31] MEDS: ASPIRIN EC 81 MG TABLET PO (08:47)
[2024-07-31] MEDS: AMLODIPINE 5 MG TABLET 2.5 MG PO (08:48)
--- NOTE | 2024-07-31 09:12 | CM.DPNOTE ---
DCP Continued: Reviewed EMR and team rounds for pt?s medical status. Per MD, patient is cleared for discharge home and has discharge orders. DCP to notify TCM team of pt discharge and PCP follow up. No other social needs identified. Plan: Anticipating dc home with supportive friends on 07/31 or when medically cleared; pt to follow up with PCP and established Pulmonary Rehab. CM Team will continue to follow for coordination of discharge plans. MARTINA Ng
--- NOTE | 2024-07-31 10:45 | OT.IP.TRT ---
Occupational Therapy Treatment Note M2 OT-IP Current Condition Start: 07/30/24 12:33 Freq: Status: Active Protocol: Document 07/30/24 13:15 [facility] (Rec: 07/30/24 13:36 [facility] Desktop) Occupational Therapy Current Condition Current Condition Evaluation Date 07/30/24 Treatment Diagnosis GLF with head laceration Diagnosis Onset Date 07/29/24 M3 OT- IP Subjective and Pain Start: 07/30/24 12:33 Freq: Status: Active Protocol: Document 07/31/24 10:47 [facility] (Rec: 07/31/24 11:00 [facility] Desktop) OT- Subjective Occupational Therapy Visit Type Type Treatment Note Visit Start Time 10:39 Visit Stop Time 10:47 Occupational Therapy Visit Comments Patient Comments Pt going home today and able to finalize OT safety suggestions and needs. Patient/Caregiver Goals To go home. OT Pain Assessment Pain When Pain Assessed At Rest Pain Present Pain Present Pain Reported Location Neck Pain Behaviors Holding Area M5 OT- IP IADL's Start: 07/30/24 12:33 Freq: Status: Active Protocol: Document 07/30/24 13:15 [facility] (Rec: 07/30/24 13:36 [facility] Desktop) OT-Instrumental Activities of Daily Living Home Safety Awareness Awareness of Need for Assistance at Home Good Awareness Ability to Problem Solve Emergency Able to Problem Solve Situations Medication Management Medication Management No Deficits Identified Money Management Money Management No Deficits Identified Meal Preparation Meal Preparation Comments Pt may benefit from assist. Converting Technician Converting Technician Comments Pt may benefit from assist. Driving Driving Comments Pt states will hold off on driving at this time after completing [employer] . M6 OT- IP Functional Cognition Start: 07/30/24 12:33 Freq: Status: Active Protocol: Document 07/31/24 10:47 [facility] (Rec: 07/31/24 11:00 [facility] Desktop) Cognitive Factors Limiting Selfcare Function Cognitive Comments Cognitive Assessment Comments Pt able to recall how to use Leela. Able to give pt information for fall preventions. Spoke about thinking about her needs in the near future if having to have more assist. Spoke of gas cap wrench to assist her when getting gas, long handled curved brush in the shower. Pt also agreed best to have friend there for showering needs initially. M7 OT- IP Mobility and Balance Start: 07/30/24 12:33 Freq: Status: Active Protocol: Document 07/30/24 13:15 [facility] (Rec: 07/30/24 13:36 [facility] Desktop) OT-Transfer Assessment Sit to and From Stand Sit to and from Stand Standby Assistance Transfers Transfer Ability Standby Assistance Technique Transfer Destination Chair,Toilet Transfer Technique Stand Step Pivot Devices Transfer Assistive Devices Gait Belt,Front Wheeled Walker Comments Mobility Comments SBA for mobility with FWW to get to the bathroom, sink and then back to the recliner. OT- Balance Assessment Sitting Balance and Reactions Static Sitting Balance Ability Normal Dynamic Sitting Balance Ability Good Standing Balance and Reactions Static Standing Balance Ability Good Dynamic Standing Balance Ability Good M8 OT- IP Objective Assessments Start: 07/30/24 12:33 Freq: Status: Active Protocol: Document 07/30/24 13:15 [facility] (Rec: 07/30/24 13:36 [facility] Desktop) OT Gross Range of Motion Upper Extremity Range of Motion Assessment Bilaterally Impaired OT Strength Upper Extremity Strength Assessment Bilaterally Impaired Comments Strength Comments shouder flexion RUE 0-100, LUE 0-90 BUE 3-/5 to 4-/5 OT- Coordination Assessment Comments Coordination Comments Arthritic changes in her hands M9 OT- IP Assessment and Plan Start: 07/30/24 12:33 Freq: Status: Active Protocol: Document 07/31/24 10:47 [facility] (Rec: 07/31/24 11:00 [facility] Desktop) OT Summary Assessment and Plan Potential Rehabilitation Potential Good Analytic Complexity at Evaluation Moderate Summary Progress Towards Goals Progressing Toward Goals Assessment Summary Able to give pt information for fall prevention, spoke of benefit to get a long handled comb/brush and shower brush, gas cap wrench, and suggested initially best to have a friend present for showering needs. Discharge Recommendations OT Discharge Recommendations Home with Assistance Home Equipment Needs Long handled comb, long handled curved shower brush, gas cap wrench Transportation Needs at Discharge Private Vehicle
--- NOTE | 2024-07-31 11:51 | PC.NURSE ---
2 PIVs removed, pt tolerated well. Provided pt education on fall risk and taking care of laceration. Pt had questions re: when she can wash her hair. Called MD Puckett's office 2x between and , but was on hold for too long; instructed pt to call MD Puckett's office when she returned home or on Saturday and provided number. Pt stated all other questions answered. All belongings with pt. Pt escorted via wheelchair by KATIE Alas to [facility] belonging to friend Ashutosh for ride home.
== END 2024-07-31 11:15 | disposition home or self-care (01) ==
LOC: ED 11:11 → AC 11:52
PROVIDERS: Admitting Provider Family Medicine; Emergency Provider Family Medicine; Family Provider Family Medicine; PCP Family Medicine; Referring Provider Family Medicine; Visit Provider Family Medicine
DX: S01.01XA Laceration without foreign body of scalp, initial encounter (principal); I48.91 Unspecified atrial fibrillation; I50.9 Heart failure, unspecified; D62 Acute posthemorrhagic anemia; I11.0 Hypertensive heart disease with heart failure; J44.9 Chronic obstructive pulmonary disease, unspecified; W01.190A Fall on same level from slipping, tripping and stumbling with subsequent striking against furniture, initial encounter; Z87.891 Personal history of nicotine dependence; Z85.118 Personal history of other malignant neoplasm of bronchus and lung; Z90.2 Acquired absence of lung [part of]
CPT/HCPCS: 12001; 36415; 70450; 71045; 72125; 80053; 82550; 83605; 83690; 83735; 83880; 84484; 85025; 85610; 85730; 86850; 86900; 86901; 93005; 94640; 94762; 96374; 96375; 96376; 97110; 97116; 97129; 97161; 97162; 97166; 97530; 97535; 99223; 99232; 99238; 99285; 99291; G0378; G0390; J1938

== ENCOUNTER → 2024-08-07 10:00 | Outpatient (CLI) | payer MEDICARE, OTHER, SELFPAY ==
[2024-07-29 12:17] VITALS: BMI 19.1
[2024-08-07 10:51] LABS: Add Manual Diff / Slide Review NO; Basophils Absolute Auto 0 /uL (0-100); Basophils Percent Auto 0.2 % (0-2); Eosinophils Absolute Auto 0 /uL (0-450); Eosinophils Percent Auto 0.5 % (2-4); Hematocrit 28.8 % (36-46); Hemoglobin 9.7 g/dL (12.0-16.0); Lymphocytes Absolute Auto 600 /uL (1100-4500); Lymphocytes Percent Auto 8.8 % (25-40); Mean Corpuscular HGB Conc 33.8 % (30-36); Mean Corpuscular Volume 91.7 fL (80-100); Monocytes Absolute Auto 600 /uL (0-900); Monocytes Percent Auto 8.6 % (3-14); Neutrophils Absolute Auto 5500 /uL (1500-7000); Neutrophils Percent Auto 81.9 % (50-75); Platelet Count 288 X10^3/uL (150-400); Red Blood Cell Count 3.14 X10^6/uL (4.0-5.2); Red Cell Distribution Width 14.9 % (11.6-14.8); White Blood Cell Count 6.7 X10^3/uL (4.5-11.0)
== END ==
PROVIDERS: Family Provider Family Medicine; PCP Family Medicine; Referring Provider Family Medicine; Visit Provider Family Medicine
DX: D64.9 Anemia, unspecified (principal)
CPT/HCPCS: 36415; 85025

== ENCOUNTER 2024-08-10 11:14 | Emergency (ER) | payer MEDICARE, OTHER, SELFPAY ==
[2024-07-29 12:17] VITALS: BMI 19.1
[2024-08-10 11:40] VITALS: BP 122/60; PULSE 104; RESP 20; TEMP 36.8; O2SAT 94; BMI 20.2
--- NOTE | 2024-08-10 11:46 | DI.RAD.S_ITS ---
PROCEDURE: XR CHEST 1V INDICATIONS: Shortness of breath TECHNIQUE: One view of the chest was acquired. COMPARISON: [facility], [place], XR CHEST 1V, 07/29/2024, 9:56. FINDINGS: Surgical changes and devices: Postsurgical changes are noted from prior right pneumonectomy.. Lungs and pleura: There is complete opacification of right hemithorax with mediastinal shift to the right. Hyperinflation is seen in left lung field with blunting of left costophrenic angle. No pneumothorax. No definite focal infiltrate. Mediastinum: Mediastinal shift to the right as above. Heart size is normal. Bones and chest wall: No suspicious bony lesions. Overlying soft tissues appear unremarkable. IMPRESSION: Prior right pneumonectomy. COPD seen in left lung field. Trace left pleural effusion. No definite focal infiltrate or pneumothorax. Dictated by: Luís Pablo M.D. on 08/10/2024 at 12:08 Approved by: Luís Pablo M.D. on 08/10/2024 at 12:11
--- NOTE | 2024-08-10 13:21 | EKG_ITS ---
[address] [address] [address] [address] Test Date: 2024-08-10 Pat Name: Cecille Toledo Department: Room: Gender: Female Reliability Manager: BRENDA : 1940 Requested By: Order Number: [id number] Reading MD: Omid Grullon Measurements Intervals [place] Rate: 91 P: NM: QRS: 87 QRSD: 94 T: 37 QT: 368 QTc: 452 Interpretive Statements Atrial fibrillation Electronically Signed On 08-13-2024 17:10:00 PDT by Omid Grullon
[2024-08-10 13:30] VITALS: BP 145/95; PULSE 92; RESP 21; O2SAT 99
[2024-08-10 13:35] LABS: INR 1.1 (0.9-1.3); Prothrombin Time 12.7 SECONDS (9.4-12.5)
[2024-08-10 13:37] LABS: Add Manual Diff / Slide Review NO; Basophils Absolute Auto 0 /uL (0-100); Basophils Percent Auto 0.4 % (0-2); Eosinophils Absolute Auto 0 /uL (0-450); Eosinophils Percent Auto 0.4 % (2-4); Hematocrit 30.7 % (36-46); Hemoglobin 10.1 g/dL (12.0-16.0); Lymphocytes Absolute Auto 1200 /uL (1100-4500); Lymphocytes Percent Auto 18.6 % (25-40); Mean Corpuscular HGB Conc 32.9 % (30-36); Mean Corpuscular Hemoglobin 30.6 PG (26-34); Monocytes Absolute Auto 600 /uL (0-900); Monocytes Percent Auto 9.8 % (3-14); Neutrophils Absolute Auto 4400 /uL (1500-7000); Neutrophils Percent Auto 70.8 % (50-75); Platelet Count 305 X10^3/uL (150-400); Red Cell Distribution Width 15.5 % (11.6-14.8); White Blood Cell Count 6.2 X10^3/uL (4.5-11.0)
[2024-08-10 13:39] LABS: Alanine Aminotransferase 19 IU/L (<35); Albumin 4.1 g/dL (3.5-5.0); Albumin Globulin Ratio 1.6 (1.0-2.8); Alkaline Phosphatase 61 U/L (38-126); Aspartate Aminotransferase 28 IU/L (14-36); BUN Creatinine Ratio 31.3 (6-22); Bilirubin Total 0.6 mg/dL (0.2-1.3); Blood Urea Nitrogen 21 mg/dL (7-17); Calcium 9.8 mg/dL (8.4-10.2); Carbon Dioxide 38 mmol/L (22-32); Chloride 93 mmol/L (98-107); Estimated Glomerular Filt Rate > 60 mL/min (>60); Globulin 2.6 g/dL (1.7-4.1); Glucose 124 mg/dL (70-99); HEMOLYSIS < 15 (0-50); Potassium 3.5 mmol/L (3.4-5.1); Sodium 136 mmol/L (137-145); Total Protein 6.7 g/dL (6.3-8.2)
[2024-08-10 13:40] LABS: Lactate (Lactic Acid) 1.4 mmol/L (0.7-2.1)
--- NOTE | 2024-08-10 13:46 | ED.SOB ---
HPI - SOB/Dyspnea General Chief Complaint: Shortness of Breath/Dyspnea Stated Complaint: SOB Time Seen by Provider: 08/10/24 13:40 Source: patient Mode of arrival: Wheelchair Limitations: no limitations History of Present Illness HPI Narrative: 83-year-old female patient with a history of COPD/tobacco smoking, CHF, atrial fibrillation and lung cancer/right pneumonectomy, who presents with shortness of breath worsening over 2 or 3 days with no cough, fever, chest pain or wheezing. Shortness of breath is worse with activity. She does have oxygen at home which in the past she has used night but recently been using during the day also from 2-4 L. She was seen here about a week ago with a fall and bleeding that led to anemia but no transfusion. She had a fall with head trauma and scalp laceration at that time. She was admitted for 2 days and received IV furosemide and said she was told to stop her hold furosemide. Since then she has had increased swelling in the legs and then with her shortness of breath. MD Complaint: shortness of breath Onset (ago): day(s) Severity: mild Consistency/Duration: intermittent Relieving factors: oxygen and rest Exacerbating factors: exertion Known history of: COPD and congestive heart failure Associated symptoms: denies other symptoms Related Data Home oxygen amount: 2 liters Home Medications Medication Instructions Recorded Confirmed calcium 600 mg (as 2 tab PO DAILY 06/24/18 08/07/24 carbonate)-vitamin D3 5 mcg (200 unit) tablet (Calcium 600 + D(3)) multivitamin with minerals 1 tab PO DAILY 06/24/18 08/07/24 amlodipine 2.5 mg tablet 2.5 mg PO DAILY 05/25/21 08/07/24 amiodarone 200 mg tablet 200 mg PO DAILY 08/14/23 08/07/24 carvedilol 3.125 mg tablet 3.125 mg PO BID 08/14/23 08/07/24 potassium chloride 20 mEq 20 meq PO BEDTIME 08/14/23 08/07/24 tablet,extended release Previous Rx's Medication Instructions Recorded Disabled Parking #1 ea 07/03/22 acetaminophen 325 mg tablet 650 mg (2 x 325 mg) PO Q6H PRN 04/12/23 Fever/Mild Pain (1-3) #90 tabs aspirin 81 mg capsule 81 mg PO DAILY #90 caps 04/12/23 albuterol sulfate 90 mcg/actuation 2 puff inhalation Q4-6H PRN 10/16/23 aerosol inhaler shortness of breath or wheezing #6.7 grams budesonide 180 mcg/actuation 1 inh inhalation BID #2 ea 10/30/23 breath activated powder inhaler (Pulmicort Flexhaler) tiotropium bromide 18 mcg capsule 1 cap inhalation DAILY #90 02/03/24 with inhalation device inhalations furosemide 40 mg tablet 40 mg PO QAM #90 tabs 03/30/24 atorvastatin 20 mg tablet 10 mg (1/2 x 20 mg) PO BEDTIME #45 05/10/24 tabs Supplemental Oxygen #1 ea 06/17/24 ferrous sulfate 325 mg (65 mg 325 mg PO DAILY #30 tabs 07/31/24 iron) tablet Allergies Allergy/AdvReac Type Severity Reaction Status Date / Time No Known Drug Allergies Allergy Verified 08/10/24 11:40 Review of Systems Review of Systems ROS Unobtainable: All systems reviewed & are unremarkable except as noted in HPI and below Constitutional Constitutional: Reports system reviewed and no additional complaints, except as documented, Denies body ache(s), Denies chills and Denies excessive sweating ENT Ears, Nose, Mouth, and Throat: Reports system reviewed and no additional complaints, except as documented Cardiovascular Cardiovascular: Reports as per HPI, Denies chest pain, Denies diaphoresis, Denies syncope, Denies rapid heart rate and Reports leg edema Neurologic Neurologic: Denies syncope Endocrine Endocrine: Denies excessive sweating Patient History Medical History Easy bruisability History of cardioversion Raynauds syndrome (12/14/10) Atrial fibrillation with RVR COPD (chronic obstructive pulmonary disease) Uterine cancer (1994) Ovarian cancer (1994) Osteoporosis (2015) Osteoarthritis Atrial fibrillation (2013) Hypertension Lung cancer (2006) Surgical History Anesthesia History of pneumonectomy (05/23/08) History of oophorectomy (1994) History of hip replacement (01/2013) History of breast augmentation (1992) History of bilateral salpingo-oophorectomy (BSO) Status post hysterectomy (1994) Family History Father Hypertension Prostate cancer Grandfather Stroke Grandmother Diabetes mellitus Mother Diabetes mellitus, type II Hypertension Stroke Grandfather No problems noted. Grandmother No problems noted. Social History marital status: unmarried,single household members: none lives independently: Yes pets and animals: Yes education level: college occupational status: other Tobacco: How many years used: 19 second hand exposure: No alcohol intake: current substance use type: does not use alcohol intake frequency: holidays/special occasions only Exam Initial Vital Signs Initial Vital Signs: Vital Signs Temperature 98.3 F 08/10/24 11:40 Pulse Rate 104 H 08/10/24 11:40 Respiratory Rate 20 08/10/24 11:40 Blood Pressure 122/60 08/10/24 11:40 Pulse Oximetry 94 08/10/24 11:40 Oxygen Delivery Method Room Air 08/10/24 11:40 Const General: cooperative, comfortable, frail appearing and well hydrated Nutritional Appearance: thin Orientation: Orientation [facility] Head: normal to inspection and normocephalic Ears: hearing grossly normal bilaterally Mouth: oral mucosae normal Eyes Pupils: PERRL EOM: EOM intact bilaterally Neck Neck: normal visual inspection and no meningeal signs Chest Chest: normal inspection of the chest Resp Effort & Inspection: normal respiratory effort Auscultation: clear to auscultation bilaterally Other: Breath sounds diminished on the right where she has a pneumonectomy Cardio Rate: regular rate Rhythm: abnormal rhythm irregularly irregular GI Inspection: normal to inspection Palpation: soft and No tender Auscultation: normal bowel sounds Back/Spine/Pelvis Back: normal to inspection and No back tenderness Skin General: no rashes or lesions noted Neuro General: patient alert, patient awake and patient oriented x3 Extrem General: edema (3+ edema of lower legs) Psych Mental Status: mental status grossly normal Course Course Course Narrative: Patient feels better having rested in the ER. She is 93% on room air. Orders Ordered: ED Orders 08/10/24 11:46 XR chest 1V Stat EKG-12 Lead Stat Measure peak expiratory flow STAT RT Consult Eval and Treat STAT 08/10/24 13:20 Complete Blood Count AUTO DIFF Stat Comprehensive Metabolic Panel Stat Lactate (Lactic Acid) Stat NT-proBNP (BNP-Adult 18+) Stat Prothrombin Time INR Stat Troponin I Stat Vital Signs Vital signs: Vital Signs - 8 hr 08/10/24 11:40 08/10/24 13:30 08/10/24 14:00 Temperature 98.3 F Pulse Rate 104 H 92 H 79 Respiratory Rate 20 21 24 Blood Pressure 122/60 145/95 H 141/88 H Pulse Oximetry 94 99 94 Oxygen Delivery Method Room Air Room Air MDM - SOB/Dyspnea Differential Diagnosis Differential diagnosis: Likely acute exacerbation of chronic obstructive airways disease, congestive heart failure, community acquired pneumonia and pulmonary embolism Condition is:: Improved Chronic Condition is having:: Mild excerbation Condition is at treatment goal?: Yes Medical Records Attestation: I reviewed the patient's medical records. Medical records narrative: History of COPD, both pneumonectomy from cancer and CHF. No smoking in over 50 years Lab Data Attestation: I reviewed the patient's lab results. Lab results narrative: CBC reveals improving hemoglobin and hematocrit since her visit last week. BNP is elevated but no previous for comparison. 08/10/24 13:20 08/10/24 13:20 Labs: Lab Results 08/10/24 Range/Units 13:20 WBC 6.2 (4.5-11.0) X10^3/uL RBC 3.30 L (4.0-5.2) X10^6/uL Hgb 10.1 L (12.0-16.0) g/dL Hct 30.7 L (36-46) % MCV 93.0 (80-100) fL MCH 30.6 (26-34) PG MCHC 32.9 (30-36) % RDW 15.5 H (11.6-14.8) % Plt Count 305 (150-400) X10^3/uL Neut % (Auto) 70.8 (50-75) % Lymph % (Auto) 18.6 L (25-40) % Chase % (Auto) 9.8 (3-14) % Eos % (Auto) 0.4 L (2-4) % Baso % (Auto) 0.4 (0-2) % Neut # (Auto) 4400 (9489-3670) /uL Lymph # (Auto) 1200 (6256-2565) /uL Chase # (Auto) 600 (0-900) /uL Eos # (Auto) 0 (0-450) /uL Baso # (Auto) 0 (0-100) /uL PT 12.7 H (9.4-12.5) SECONDS INR 1.1 (0.9-1.3) Sodium 136 L (137-145) mmol/L Potassium 3.5 (3.4-5.1) mmol/L Chloride 93 L (98-107) mmol/L Carbon Dioxide 38 H (22-32) mmol/L BUN 21 H (7-17) mg/dL Creatinine 0.67 (0.52-1.04) mg/dL Estimated GFR > 60 (>60) mL/min BUN/Creatinine Ratio 31.3 H (6-22) Glucose 124 H (70-99) mg/dL Lactate 1.4 (0.7-2.1) mmol/L Calcium 9.8 (8.4-10.2) mg/dL Total Bilirubin 0.6 (0.2-1.3) mg/dL AST 28 (14-36) IU/L ALT 19 (<35) IU/L Alkaline Phosphatase 61 (38-126) U/L Troponin I < 0.012 (0.01-0.034) ng/mL NT-Pro-B Natriuret Pep 2640 H (<450) pg/mL Total Protein 6.7 (6.3-8.2) g/dL Albumin 4.1 (3.5-5.0) g/dL Globulin 2.6 (1.7-4.1) g/dL Albumin/Globulin Ratio 1.6 (1.0-2.8) Imaging Data Chest x-ray: Radiologist's Impression: IMPRESSION: Prior right pneumonectomy. COPD seen in left lung field. Trace left pleural effusion. No definite focal infiltrate or pneumothorax. MDM Narrative Medical decision making narrative: Patient has subjective mild shortness of breath on exertion and increased peripheral edema. She did stop her furosemide because she thought she was directed to do so when she left from her visit last week. No chest pain, fever or cough. Patient's physical exam including vital signs, chest x-ray and lab work were all reassuring for not eating any further workup. She will continue oxygen at home as needed which she has been using. Also resume her furosemide for her fluid retention. Follow-up closely with primary care. Return to the ER if worse. Discharge Plan Departure Patient Disposition: Home Clinical Impression: Dyspnea, Edema of both lower extremities due to peripheral venous insufficiency Instructions: Chronic Venous Insufficiency, DI for Shortness of Breath Activity Restrictions/Additional Instructions: Assessment: Increased shortness of breath on exertion. Possibly due to mild fluid retention due to stopping furosemide. Also mild anemia which Is improving since her last visit. No evidence of pneumonia or congestive heart failure exacerbation. Plan: Resume taking furosemide as prescribed for and contact her doctor for further instructions on taking furosemide and for follow-up within the next 2 or 3 days for reassessment. Elevate legs and consider compression hose. Return to the ER if worse Prescriptions: No Action (DME) Disabled Parking See Rx Instructions .ROUTE .MEDSUPPLY Qty: 1 0RF Rx Instructions: I find this patient to be medically disabled and qualified for Permanent Disabled Parking as indicated, and signed, on the Accompanying Disabled Parking Application for Individuals Pulmicort Flexhaler 180 mcg/actuation aerosol powdr breath activated 1 inh inhalation BID Qty: 2 3RF tiotropium bromide 18 mcg capsule, w/inhalation device 1 cap inhalation DAILY Qty: 90 3RF Rx Instructions: puncture 1 cap using device; one dose = 2 inhalations furosemide 40 mg tablet 40 mg PO QAM Qty: 90 3RF atorvastatin 20 mg tablet 10 mg PO BEDTIME Qty: 45 0RF (DME) Supplemental Oxygen 2 L/min aerosol See Rx Instructions .Route .MEDSUPPLY Qty: 1 0RF Rx Instructions: As directed To keep O2 sats above 88% calcium carbonate-vitamin D3 [Calcium 600 + D(3)] 600 mg(1,500mg) -200 unit Tablet 2 tab PO DAILY multivitamin with minerals Tablet 1 tab PO DAILY amiodarone 200 mg tablet 200 mg PO DAILY carvedilol 3.125 mg tablet 3.125 mg PO BID potassium chloride 20 mEq tablet extended release 20 meq PO BEDTIME ferrous sulfate 325 mg (65 mg iron) tablet 325 mg PO DAILY Qty: 30 0RF amlodipine 2.5 mg Tablet 2.5 mg PO DAILY acetaminophen 325 mg Tablet 650 mg PO Q6H PRN (Reason: Fever/Mild Pain (1-3)) Qty: 90 0RF aspirin 81 mg capsule 81 mg PO DAILY Qty: 90 0RF albuterol sulfate 90 mcg/actuation HFA aerosol inhaler 2 puff inhalation Q4-6H PRN (Reason: shortness of breath or wheezing) Qty: 6.7 2RF Referrals: Rosio Puckett MD [Primary Care Provider] - Stand Alone Forms: Patient Portal/API/Survey
[2024-08-10 13:51] LABS: NT-proBNP (BNP-Adult 18+) 2640 pg/mL (<450); Troponin I < 0.012 ng/mL (0.01-0.034)
[2024-08-10 14:00] VITALS: BP 141/88; PULSE 79; RESP 24; O2SAT 94
== END 2024-08-10 14:32 | disposition home or self-care (01) ==
PROVIDERS: Student in an Organized Health Care Education/Training Program; Emergency Provider Emergency Medicine; Family Provider Family Medicine; PCP Family Medicine
DX: R06.00 Dyspnea, unspecified (principal); R60.0 Localized edema
CPT/HCPCS: 36415; 71045; 80053; 83605; 83880; 84484; 85025; 85610; 93005; 99283; 99284

== ENCOUNTER 2024-09-08 13:22 | Emergency (ER) | payer MEDICARE, OTHER, SELFPAY ==
[2024-09-08 13:22] VITALS: BMI 19.1
[2024-09-08 13:32] VITALS: BP 139/77; PULSE 93; RESP 18; TEMP 36.8; O2SAT 96; BMI 19.1
--- NOTE | 2024-09-08 13:56 | DI.CT.S_ITS ---
PROCEDURE: CT HEAD/BRAIN WO CON INDICATIONS: continued pressure after injury TECHNIQUE: Noncontrast 4.5 mm thick angled axial sections acquired from the foramen magnum to the vertex, with coronal and sagittal reformats. For radiation dose reduction, the following was used: automated exposure control, adjustment of mA and/or kV according to patient size. COMPARISON: [facility], CT, CT HEAD/BRAIN WO CON, 07/29/2024, 10:47. FINDINGS: Image quality: Diagnostic. CSF spaces: Basal cisterns are patent. No extra-axial fluid collections. The ventricles are symmetric in size and shape. Brain: No intracranial bleeds or mass effect. There is cerebral volume loss, with resultant ventricular and sulcal prominence. There are periventricular and deep white matter chronic small vessel ischemic changes. There is intracranial internal carotid artery atherosclerosis. Skull and face: Calvarium and visualized facial bones appear intact, without suspicious lesions. Sinuses: Visualized sinuses and mastoids are clear. IMPRESSION: No acute intracranial pathology. Dictated by: Agusto Hughes M.D. on 09/08/2024 at 14:46 Approved by: Agusto Hughes M.D. on 09/08/2024 at 14:47
--- NOTE | 2024-09-08 15:17 | ED.HEATRA ---
HPI - Head Injury <Yamilka Triana PA-C - Last Filed: 09/08/24 16:49> General Chief complaint: Head Injury Stated complaint: PRESSURE IN HEAD Time Seen by Provider: 09/08/24 15:17 Source: patient Mode of arrival: Ambulatory History of Present Illness HPI Narrative: Ms. Toledo is a very pleasant 84-year-old female with a past medical history of atrial fibrillation no longer on AC due to frequent falls, right lung metastasis s/p right lung resection, endometrial cancer, colon cancer who presents to the emergency department for head pressure on the right side of her head ever since falling and hitting her head on August 10. Patient was also seen in the ED on 07/29/2024 for fall and had a significant left posterior parietal scalp hematoma and swelling, general surgery had to come down to the ER to repair the scalp wound due to the significant bleeding, and she also had lashanda placed into the scalp and numerous spots. Patient states her pain has been present since August 10 however describes that the pain has been present since this scalp injury which was actually 07/29. Describes on the right back side of her head she has a very deep/pressure-like pain that is constant since the fall, very mild, and does not cause her significant pain however she was concerned due to the duration. She takes Tylenol for this pain before bed which makes it resolve. She denies any other associated symptoms and states that she otherwise feels very well. No additional fall since then. Denies nausea, vomiting, visual disturbance, dizziness, lightheadedness, chest pain, shortness of breath, fevers, chills. All scalp lashanda have been removed. Related Data Home Medications ?Medication ?Instructions ?Recorded ?Confirmed calcium 600 mg (as 2 tab PO DAILY 06/24/18 08/11/24 carbonate)-vitamin D3 5 mcg (200 unit) tablet (Calcium 600 + D(3)) multivitamin with minerals 1 tab PO DAILY 06/24/18 08/11/24 amlodipine 2.5 mg tablet 2.5 mg PO DAILY 05/25/21 08/11/24 amiodarone 200 mg tablet 200 mg PO DAILY 08/14/23 08/11/24 carvedilol 3.125 mg tablet 3.125 mg PO BID 08/14/23 08/11/24 potassium chloride 20 mEq 20 meq PO BEDTIME 08/14/23 08/11/24 tablet,extended release Previous Rx's ?Medication ?Instructions ?Recorded Disabled Parking #1 ea 07/03/22 acetaminophen 325 mg tablet 650 mg (2 x 325 mg) PO Q6H PRN 04/12/23 Fever/Mild Pain (1-3) #90 tabs aspirin 81 mg capsule 81 mg PO DAILY #90 caps 04/12/23 albuterol sulfate 90 mcg/actuation 2 puff inhalation Q4-6H PRN 10/16/23 aerosol inhaler shortness of breath or wheezing #6.7 grams budesonide 180 mcg/actuation 1 inh inhalation BID #2 ea 10/30/23 breath activated powder inhaler (Pulmicort Flexhaler) tiotropium bromide 18 mcg capsule 1 cap inhalation DAILY #90 02/03/24 with inhalation device inhalations furosemide 40 mg tablet 40 mg PO QAM #90 tabs 03/30/24 Supplemental Oxygen #1 ea 06/17/24 ferrous sulfate 325 mg (65 mg 325 mg PO DAILY #30 tabs 07/31/24 iron) tablet atorvastatin 20 mg tablet 10 mg (1/2 x 20 mg) PO BEDTIME #45 08/18/24 tabs Allergies Allergy/AdvReac Type Severity Reaction Status Date / Time No Known Drug Allergies Allergy Verified 09/08/24 13:32 Review of Systems <Yamilka Triana PA-C - Last Filed: 09/08/24 16:49> Review of Systems ROS Unobtainable: All systems reviewed & are unremarkable except as noted in HPI and below Patient History <Yamilka Triana PA-C - Last Filed: 09/08/24 16:49> Medical History Easy bruisability History of cardioversion Raynauds syndrome (12/14/10) Atrial fibrillation with RVR COPD (chronic obstructive pulmonary disease) Uterine cancer (1994) Ovarian cancer (1994) Osteoporosis (2015) Osteoarthritis Atrial fibrillation (2013) Hypertension Lung cancer (2006) Surgical History Anesthesia History of pneumonectomy (05/23/08) History of oophorectomy (1994) History of hip replacement (01/2013) History of breast augmentation (1992) History of bilateral salpingo-oophorectomy (BSO) Status post hysterectomy (1994) Family History Father Hypertension Prostate cancer Grandfather Stroke Grandmother Diabetes mellitus Mother Diabetes mellitus, type II Hypertension Stroke Grandfather No problems noted. Grandmother No problems noted. Social History marital status: unmarried,single household members: none lives independently: Yes pets and animals: Yes education level: college occupational status: other Tobacco: How many years used: 19 second hand exposure: No alcohol intake: current substance use type: does not use alcohol intake frequency: holidays/special occasions only Exam <Yamilka Triana PA-C - Last Filed: 09/08/24 16:49> Narrative Exam Narrative: GENERAL: 84 year old patient appears stated age. Frail elderly patient, in no acute distress. HEAD: Atraumatic. Normocephalic. On the right posterior/occipital scalp there is a small scab from a prior healed laceration. No palpable skull fracture or defects. EYES: PERRL. Extraocular motions intact. No scleral icterus. No injection or drainage. ENT: Hearing aids removed revealing pearly jarrett TMs bilaterally, clear ear canals. No epistaxis. NECK: Trachea midline. Cervical ROM intact. CARDIOVASCULAR: Regular rate RESPIRATORY: ?Nonlabored respirations. ?Speaking in clear, full sentences. ? NEURO: AOx3. ?Clear speech. ?Moves all 4 extremities appropriately. SKIN: No rash or erythema of visible areas Initial Vital Signs Initial Vital Signs: Vital Signs Temperature 98.2 F 09/08/24 13:32 Pulse Rate 93 H 09/08/24 13:32 Respiratory Rate 18 09/08/24 13:32 Blood Pressure 139/77 09/08/24 13:32 Pulse Oximetry 96 09/08/24 13:32 Oxygen Delivery Method Room Air 09/08/24 13:32 <Jayla Fraser DO - Last Filed: 09/09/24 08:43> Initial Vital Signs Initial Vital Signs: Vital Signs Temperature 98.2 F 09/08/24 13:32 Pulse Rate 93 H 09/08/24 13:32 Respiratory Rate 18 09/08/24 13:32 Blood Pressure 139/77 09/08/24 13:32 Pulse Oximetry 96 09/08/24 13:32 Oxygen Delivery Method Room Air 09/08/24 13:32 Course <Yamilka Triana PA-C - Last Filed: 09/08/24 16:49> Orders Ordered: ED Orders 09/08/24 13:56 CT head/brain wo con Stat Vital Signs Vital signs: Vital Signs - 8 hr 09/08/24 13:32 Temperature 98.2 F Pulse Rate 93 H Respiratory Rate 18 Blood Pressure 139/77 Pulse Oximetry 96 Oxygen Delivery Method Room Air <Jayla Srikanth Fraser DO - Last Filed: 09/09/24 08:43> Orders Ordered: ED Orders 09/08/24 13:56 CT head/brain wo con Stat Vital Signs Vital signs: Vital Signs - 8 hr 09/08/24 13:32 Temperature 98.2 F Pulse Rate 93 H Respiratory Rate 18 Blood Pressure 139/77 Pulse Oximetry 96 Oxygen Delivery Method Room Air MDM - Head Injury <Yamilka Triana PA-C - Last Filed: 09/08/24 16:49> Medical Records Attestation: I reviewed the patient's medical records. Imaging Data CT scan - head: Radiologist's Impression: PROCEDURE: CT HEAD/BRAIN WO CON INDICATIONS: continued pressure after injury TECHNIQUE: Noncontrast 4.5 mm thick angled axial sections acquired from the foramen magnum to the vertex, with coronal and sagittal reformats. For radiation dose reduction, the following was used: automated exposure control, adjustment of mA and/or kV according to patient size. COMPARISON: [facility], CT, CT HEAD/BRAIN WO CON, 07/29/2024, 10:47. FINDINGS: Image quality: Diagnostic. CSF spaces: Basal cisterns are patent. No extra-axial fluid collections. The ventricles are symmetric in size and shape. Brain: No intracranial bleeds or mass effect. There is cerebral volume loss, with resultant ventricular and sulcal prominence. There are periventricular and deep white matter chronic small vessel ischemic changes. There is intracranial internal carotid artery atherosclerosis. Skull and face: Calvarium and visualized facial bones appear intact, without suspicious lesions. Sinuses: Visualized sinuses and mastoids are clear. IMPRESSION: No acute intracranial pathology. Dictated by: Agusto Hughes M.D. on 09/08/2024 at 14:46 Approved by: Agusto Hughes M.D. on 09/08/2024 at 14:47 [facility] Narrative Medical decision making narrative: 84-year-old female with a past medical history of atrial fibrillation no longer on AC due to frequent falls, right lung metastasis s/p right lung resection, endometrial cancer, colon cancer who presents to the emergency department for head pressure on the right side of her head ever since falling and hitting her head on August 10. Patient was also seen in the ED on 07/29/2024 for fall and had a significant left posterior parietal scalp hematoma and swelling, general surgery had to come down to the ER to repair the scalp wound due to the significant bleeding, and she also had lashanda placed into the scalp and numerous spots. Patient states her pain has been present since August 10 however describes that the pain has been present since this scalp injury which was actually 07/29. Differential diagnosis includes but is not limited to ICH, contusion, hematoma, concussion, etc. On exam patient is in no acute distress, nontoxic appearing, vital signs within normal limits. She reports subjective mild deep pressure pain in the back of her head where she had prior fall, patient has a small healed scab in this area, no signs skull defect or wound infection. CT head ordered revealing no acute intracranial pathology. Printed discussed results with the patient and she felt very reassured by this, she does not want any pain medication, she feels comfortable following up with her primary care doctor. We did discuss strict ED return precautions and advised using Tylenol if needed for pain. She verbalized understanding of all information agreeable with the plan. She is stable for discharge home. Discharge Plan Departure Patient Disposition: Home Clinical Impression: Acute post-traumatic headache Qualifiers: Intractability: not intractable Qualified Code(s): G44.319 - Acute post-traumatic headache, not intractable Instructions: DI for Closed Head Injury Activity Restrictions/Additional Instructions: Dear Ms. Toledo, Today you were evaluated for persistent pain in your head after a fall. We obtain a CT scan of your head which showed no skull fractures, brain bleeds or tumors. I would like you to rest, hydrate, use Tylenol if needed for pain, and follow up with your primary care doctor for further management. Please return to the emergency department immediately if you develop severe pain, changes in your vision, dizziness or lightheadedness, vomiting or any other concerns. Please follow up with your primary care doctor within the next 2-3 days for ER follow-up. (If you do not have a PCP you can call [phone]. ?to schedule an appointment with an [facility] Primary Care Provider) IF YOU DEVELOP ANY NEW OR WORSENING SYMPTOMS, RETURN TO THE ER! Please read the attached instructions, they highlight more specific treatments and interventions for you at home. Thank you for letting me participate in your care, Yamilka Triana PA-C Prescriptions: No Action (DME) Disabled Parking See Rx Instructions .ROUTE .MEDSUPPLY Qty: 1 0RF Rx Instructions: I find this patient to be medically disabled and qualified for Permanent Disabled Parking as indicated, and signed, on the Accompanying Disabled Parking Application for Individuals Pulmicort Flexhaler 180 mcg/actuation aerosol powdr breath activated 1 inh inhalation BID Qty: 2 3RF tiotropium bromide 18 mcg capsule, w/inhalation device 1 cap inhalation DAILY Qty: 90 3RF Rx Instructions: puncture 1 cap using device; one dose = 2 inhalations furosemide 40 mg tablet 40 mg PO QAM Qty: 90 3RF (DME) Supplemental Oxygen 2 L/min aerosol See Rx Instructions .Route .MEDSUPPLY Qty: 1 0RF Rx Instructions: As directed To keep O2 sats above 88% atorvastatin 20 mg tablet 10 mg PO BEDTIME Qty: 45 0RF calcium carbonate-vitamin D3 [Calcium 600 + D(3)] 600 mg(1,500mg) -200 unit Tablet 2 tab PO DAILY multivitamin with minerals Tablet 1 tab PO DAILY amiodarone 200 mg tablet 200 mg PO DAILY carvedilol 3.125 mg tablet 3.125 mg PO BID potassium chloride 20 mEq tablet extended release 20 meq PO BEDTIME ferrous sulfate 325 mg (65 mg iron) tablet 325 mg PO DAILY Qty: 30 0RF amlodipine 2.5 mg Tablet 2.5 mg PO DAILY acetaminophen 325 mg Tablet 650 mg PO Q6H PRN (Reason: Fever/Mild Pain (1-3)) Qty: 90 0RF aspirin 81 mg capsule 81 mg PO DAILY Qty: 90 0RF albuterol sulfate 90 mcg/actuation HFA aerosol inhaler 2 puff inhalation Q4-6H PRN (Reason: shortness of breath or wheezing) Qty: 6.7 2RF Referrals: Rosio Puckett MD [Primary Care Provider, Family Practice] Stand Alone Forms: Patient Portal/API ED Sign-out <Jayla Fraser, - Last Filed: 09/09/24 08:43> Cosign ED Attending Aniature Attestation: I was immediately available in the department for consultation.
[2024-09-08 16:06] VITALS: BP 145/79; PULSE 98; RESP 17; O2SAT 97
== END 2024-09-08 16:06 | disposition home or self-care (01) ==
PROVIDERS: Emergency Provider Physician Assistant; Family Provider Family Medicine; PCP Family Medicine
DX: G44.319 Acute post-traumatic headache, not intractable (principal)
CPT/HCPCS: 36415; 70450; 83540; 85025; 99281; 99284

== ENCOUNTER → 2024-09-08 16:31 | Outpatient (CLI) | payer MEDICARE, OTHER, SELFPAY ==
[2024-09-08 13:22] VITALS: BMI 19.1
[2024-09-08 17:22] LABS: Add Manual Diff / Slide Review NO; Hematocrit 40.6 % (36-46); Hemoglobin 13.1 g/dL (12.0-16.0); Lymphocytes Absolute Auto 1100 /uL (1100-4500); Mean Corpuscular HGB Conc 32.4 % (30-36); Mean Corpuscular Hemoglobin 30.7 PG (26-34); Mean Corpuscular Volume 94.7 fL (80-100); Platelet Count 188 X10^3/uL (150-400)
[2024-09-08 19:08] LABS: Iron 67 ug/dL (37-170)
== END ==
PROVIDERS: Family Provider Family Medicine; PCP Family Medicine; Referring Provider Family Medicine; Visit Provider Family Medicine
DX: D50.9 Iron deficiency anemia, unspecified (principal)
CPT/HCPCS: 36415; 83540; 85025

== ENCOUNTER → 2024-09-22 14:30 | Outpatient (CLI) | payer MEDICARE, OTHER, SELFPAY ==
[2024-09-08 13:22] VITALS: BMI 19.1
[2024-09-22 15:23] LABS: Alanine Aminotransferase 16 IU/L (<35); Albumin 4.3 g/dL (3.5-5.0); Albumin Globulin Ratio 1.7 (1.0-2.8); Alkaline Phosphatase 61 U/L (38-126); Blood Urea Nitrogen 25 mg/dL (7-17); Calcium 9.8 mg/dL (8.4-10.2); Carbon Dioxide 35 mmol/L (22-32); Chloride 94 mmol/L (98-107); Estimated Glomerular Filt Rate > 60 mL/min (>60); Globulin 2.5 g/dL (1.7-4.1); Glucose 83 mg/dL (70-99); HEMOLYSIS < 15 (0-50); Potassium 4.1 mmol/L (3.4-5.1); Sodium 136 mmol/L (137-145); Total Protein 6.8 g/dL (6.3-8.2)
== END ==
PROVIDERS: Family Provider Family Medicine; PCP Family Medicine; Referring Provider Internal Medicine Cardiovascular Disease; Visit Provider Internal Medicine Cardiovascular Disease
DX: I48.0 Paroxysmal atrial fibrillation (principal)
CPT/HCPCS: 36415; 80053

== ENCOUNTER → 2024-10-05 13:26 | Outpatient (CLI) | payer MEDICARE, OTHER, SELFPAY ==
[2024-09-08 13:22] VITALS: BMI 19.1
[2024-10-05 14:17] LABS: Blood Urea Nitrogen 25 mg/dL (7-17); Calcium 9.8 mg/dL (8.4-10.2); Carbon Dioxide 34 mmol/L (22-32); Chloride 95 mmol/L (98-107); Estimated Glomerular Filt Rate > 60 mL/min (>60); Glucose 79 mg/dL (70-99); HEMOLYSIS < 15 (0-50); Potassium 3.9 mmol/L (3.4-5.1); Sodium 137 mmol/L (137-145)
[2024-10-05 14:20] LABS: Add Manual Diff / Slide Review NO; Hematocrit 40.6 % (36-46); Hemoglobin 13.3 g/dL (12.0-16.0); Lymphocytes Absolute Auto 1100 /uL (1100-4500); Mean Corpuscular HGB Conc 32.8 % (30-36); Mean Corpuscular Hemoglobin 30.5 PG (26-34); Mean Corpuscular Volume 92.9 fL (80-100); Platelet Count 229 X10^3/uL (150-400)
== END ==
PROVIDERS: Family Provider Family Medicine; PCP Family Medicine; Referring Provider Family Medicine; Visit Provider Internal Medicine Interventional Cardiology
DX: I48.21 Permanent atrial fibrillation (principal)
CPT/HCPCS: 36415; 80048; 85025

== ENCOUNTER → 2025-02-09 12:28 | Outpatient (CLI) | payer MEDICARE, OTHER, SELFPAY ==
--- NOTE | 2025-02-09 12:30 | DI.RAD.S_ITS ---
PROCEDURE: XR SHOULDER LT MIN 2V INDICATIONS: shoulder pain TECHNIQUE: 3 views of the shoulder were acquired. COMPARISON: [facility], CR, XR SHOULDER RT MIN 2V, 02/21/2024, 12:04. FINDINGS: Bones: No acute fracture parent postoperative changes noted in the lateral clavicle. Superior subluxation of left glenohumeral joint suggestive of a chronic in rotator cuff tear. Marked left glenohumeral joint space narrowing. Soft tissues: No suspicious soft tissue calcifications. IMPRESSION: No acute fracture. Marked glenohumeral joint arthritis. Probable chronic rotator cuff tear. Dictated by: Marivel Grullon M.D. on 02/10/2025 at 9:17 Approved by: Marivel Grullon M.D. on 02/10/2025 at 9:19
--- NOTE | 2025-02-09 12:30 | DI.RAD.S_ITS ---
P and ROCEDURE: XR WRIST LT MIN 3V INDICATIONS: wrist pain TECHNIQUE: 4 views of the wrist were acquired. COMPARISON: None. FINDINGS: Bones: No fractures or dislocations. No suspicious bony lesions. Moderate radiocarpal and marked STT joint space narrowing and osteophytosis. Marked narrowing of the 2nd, 3rd, 4th and 5th PIP and 5th DIP joints. Multiple central erosions are present in the PIP joints. Soft tissues: Mild soft tissue swelling. IMPRESSION: No acute fracture. Advanced STT joint osteoarthritis. Multifocal marked PIP and DIP joint space narrowing in the 2nd through 5th digits. Multifocal central erosions raise concerns for inflammatory arthritis. Correlate with symptoms and presentation. Dictated by: Marivel Grullon M.D. on 02/10/2025 at 9:15 Approved by: Marivel Grullon M.D. on 02/10/2025 at 9:17
== END ==
PROVIDERS: Family Provider Family Medicine; PCP Family Medicine; Referring Provider Family Medicine; Visit Provider Family Medicine
DX: M19.032 Primary osteoarthritis, left wrist (principal); M19.012 Primary osteoarthritis, left shoulder; M25.519 Pain in unspecified shoulder; M25.539 Pain in unspecified wrist
CPT/HCPCS: 73030; 73110

== ENCOUNTER → 2025-02-17 14:33 | Outpatient (CLI) | payer MEDICARE, OTHER, SELFPAY ==
--- NOTE | 2025-02-17 14:35 | DI.RAD.S_ITS ---
PROCEDURE: XR DEXA AXIAL SKELETON INDICATIONS: screening COMPARISON: [facility], CR, XR DEXA APPENDICULAR SKELETON, 12/20/2022, 10:10. [facility], CR, XR DEXA AXIAL SKELETON, 02/08/2020, 10:26. FINDINGS: Lumbar Spine: Bone mineral density 0.811 g/cm2, T score -2.1, decreased by 6.4%. Left Forearm: Bone mineral density 0.419 g/cm2, T score -4.6, decreased by 5.2%. (T score greater or equal to -1.0 to: NORMAL) (T score from -1.1 to -2.4: OSTEOPENIA) (T score less than or equal to -2.5: OSTEOPOROSIS) IMPRESSION: Osteoporosis by WHO classification. Follow-up guidelines as follows: Osteoporosis: Consider a repeat DEXA and Vertebral Fracture Assessment (VFA) exam in 2 years or sooner if medically necessary, to reassess this patient's status. Osteopenia: Consider a repeat DEXA in 2-3 years to reassess this patient's status, or if there is a new clinical indication. Normal: Consider a repeat DEXA in 5 years or sooner, or if there is a new clinical indication. All treatment decisions require clinical judgment and consideration of individual patient factors, including patient preferences, comorbidities, previous drug use, risk factors not captured in the FRAX model (e.g., frailty, falls, vitamin D deficiency, increased bone turnover, interval significant decline in bone density ) and possible under- or over-estimation of fracture risk by FRAX. In addition, the NOF Guide recommends that FDA-approved medical therapies be considered in postmenopausal women and men age >= 50 years with a: * Hip or vertebral (clinical or morphometric) fracture * T-score of <=-2.5 at the spine or hip * Ten-year fracture probability by FRAX of >= 3% for hip fracture or >=20% for major osteoporotic fracture. Dictated by: Agusto Hughes M.D. on 02/18/2025 at 17:01 Approved by: Agusto Hughes M.D. on 02/18/2025 at 17:02
== END ==
PROVIDERS: Family Provider Family Medicine; PCP Family Medicine; Referring Provider Family Medicine; Visit Provider Family Medicine
DX: M81.0 Age-related osteoporosis without current pathological fracture (principal)
CPT/HCPCS: 77080

== ENCOUNTER → 2025-02-24 13:03 | Outpatient (CLI) | payer MEDICARE, OTHER, SELFPAY ==
--- NOTE | 2025-02-24 13:06 | DI.ECHO.S_ITS ---
[place] [facility]+ [facility] : : [id number] : [address] : : [id number] : : Phone: [phone] Echocardiogram Report + + :Name: ELIUD BENDER Study Date: 02/24/2025 Height: 60 in : :[facility] ReadingLocation: Weight: 93 lb : : Gender: Female BSA: 1.3 m2 : :: 1940 Age: 84 yrs BP: 99/69 mmHg: :Reason For Study: Shortness of breath : :Ordering Physician: RA, : :CASIE Performed By: Clint Kennedy : :Referring: CASIE KNAPP : + + Interpretation Summary This is a technically difficult study because it could only be acquired in supine position. As a result apical images are off axis. Endocardial visualization is very very poor. Next time consider Definity echo contrast and proper patient positioning if shoulder pain allows. A-fib with rapid ventricular response. HR 90-102 bpm. Normal LV size and wall thickness. Normal wall motion and LV systolic function. Ejection fraction is 60-65%. Severely dilated right ventricle. D-shaped LV in systole which is consistent with elevated RV systolic pressure. Estimated PA systolic pressure is 45 mmHg assuming right atrial pressure 15 mmHg. Compared to prior echo 11/02/2023, RV dilation progressed from moderate to severe. PA systolic pressure is down from 67 to 45 mm Hg but may not be 100% reliable due to off axis images. Procedure: A two-dimensional transthoracic echocardiogram with color flow and Doppler was performed. The study quality was technically difficult. Comparison is made with the echocardiogram of 11/04/2023. Patient scanned supine due to shoulder pain. The heart rate ranged between 90-102 bpm during the study. Left Ventricle: The left ventricle is normal in size and wall thickness. The ejection fraction is estimated to be 60-65%. Septal flatting noted suggesting right ventricular pressure and volume overload. Diastolic function is indeterminate. Right Ventricle: The right ventricle is severely dilated. Right ventricular systolic function is mildly reduced. Atria: Left atrium appears within normal range. Right atrium not well visualized. Mitral Valve: The mitral valve leaflets appear to open well. There is no mitral valve stenosis. There is trace mitral regurgitation. Aortic Valve: Aortic valve leaflets not well visualized. There is no aortic valve stenosis. There is trace aortic regurgitation. Tricuspid Valve: The tricuspid valve is not well visualized, but is grossly normal. There is moderate tricuspid regurgitation. The right ventricular systolic pressure is estimated to be at least 44 mmHg based on an estimated right atrial pressure of 15 mm Hg. Pulmonic Valve: The pulmonic valve is not well visualized. Great Vessels: The aortic root is normal size. The ascending aorta could not be visualized. The aortic arch could not be visualized. The pulmonary is not well visualized. The IVC is dilated (diameter is greater than 2.1 cm) and it collapses less than 50% with a sniff. This suggests a high right atrial pressure of 15 mm Hg. Pericardium/ Pleura There is no pericardial effusion. MMode/2D Measurements & Calculations LVIDd: 2.7 cm LA A4 area: 19.0 cm2 LVIDs: 1.5 cm LA length (vol): 6.5 cm FS: 44.2 % IVSd: 0.78 cm LVPWd: 0.86 cm LV bird. diameter/BSA (cm/m^2): 2.0 LV sys. diameter/BSA (cm/m^2): 1.1 RA long axis: 5.4 cm TAPSE: 1.1 cm RA area: 14.2 cm2 RA vol: 31.7 ml RA : 23.5 ml/m2 IVC diam: 2.3 cm Doppler Measurements & Calculations Ao V2 max: 102.8 cm/sec LVOT Max Kaiden: 84.2 cm/sec Ao V2 mean: 80.2 cm/sec LV V1 max P.8 mmHg Ao max P.2 mmHg LV V1 VTI: 13.0 cm Ao mean P.7 mmHg sev ratio: 0.74 Ao V2 VTI: 17.6 cm TR max kaiden: 270.7 cm/sec TR max P.3 mmHg Electronically signed by: Juliette Orourke M.D. on Reading Physician:02/24/2025 05:51 PM
--- NOTE | 2025-02-24 13:06 | DI.RAD.S_ITS ---
PROCEDURE: FL JOINT INJECTION MEDIUM LT INDICATIONS: glenohumeral csi COMPARISON: None. TECHNIQUE: The indications, alternatives, benefits, risks, and complications of the procedure were explained to the patient. Written informed consent was obtained and placed in the chart. The patient was placed in an appropriate position on the fluoroscopy table, and a site was chosen for percutaneous access under fluoroscopic guidance. The site was prepped and draped in a sterile fashion. Local anesthetic was administered using a 1% lidocaine solution. A hypodermic or spinal needle was then used to access the symptomatic joint. Intra-articular location of the needle tip was confirmed by injecting a small amount of contrast, followed by steroid administration. The needle was then withdrawn, and a bandage applied to the puncture site. FINDINGS: Joint injected: Left shoulder Medications injected: 1 mL of 40 mg/mL Kenalog and 0.5% Ropivacaine mixture. Patient's pain before injection: 5 out of 10. Patient's pain after injection: 0 out of 10. Complications: None. IMPRESSION: Successful fluoroscopically guided administration of steroid and anaesthetic solution into the left shoulder joint. Dictated by: Liz Ojeda Jessi Interpreted: Jonna Park MD on 02/24/2025 at 14:37 Transcribed by: THEODORE on 02/24/2025 at 14:37 Approved by: Jonna Park M.D. on 02/26/2025 at 7:54
== END ==
PROVIDERS: Family Provider Family Medicine; PCP Family Medicine; Referring Provider Family Medicine; Visit Provider Family Medicine
DX: I07.1 Rheumatic tricuspid insufficiency (principal); J96.11 Chronic respiratory failure with hypoxia; I50.9 Heart failure, unspecified; M25.512 Pain in left shoulder
CPT/HCPCS: 20605; 77002; 93306; Q9967

== ENCOUNTER 2025-03-02 12:31 | Inpatient (IN) | payer MEDICARE, OTHER, SELFPAY ==
[2025-03-02] VITALS (22 sets, daily range): BP systolic 101–164; BP diastolic 72–97; PULSE 107–124; RESP 20–40; TEMP 37.1–37.3; O2SAT 89–100; BMI 19.8; BMI 18.1
--- OUTSIDE RECORDS SUMMARY | 2025-03-02 12:32 | XMS_ITS | Encounter Summary ---
Author Organization [facility] Address [address] [place] [address] Care Team Providers Care Trumpet Teacher Name Role Phone SreekanthRosio rendon Primary Care Provider Encounter Details Date Type Department Care Team (Late st Contact Info) Description 04/17/[address] [facility] Cardiology [address], [address] [place] [address] Neil Pedroza MD [address] [place] [id number] PAF (paroxysmal atrial fibrillation) (CMS/HCC); Atypical atrial flutter (CMS/HCC) Social History Tobacco Use Types Packs/Day Years Used Date Smoking Tobacco: Former Smokeless Tobacco: Never Comments Unknown Sex and Gender Information Value Date Recorded Sex Assigned at Female 08/05/2019 12:50 PM PDT Legal Sex Female 5:26 PM PDT Gender Identity Female 08/05/2019 12:50 PM PDT Sexual Orientation Straight 08/05/2019 12 :50 PM PDT documented as of this encounter Plan of Treatment Upcoming Encounters Date Type Department Care Team (Late st Contact Info) Description 03/30/2025 2:00 PM PST Office Visit [facility] [address] [place] [phone] Janet Menjivar, DPM [address] [place], [place] [phone] 06/10/2025 3:00 PM PDT Office Visit [facility] [place] [facility] [address] [facility] [address] [place] [address] Daniella Alfaro, YESSENIA [address] [place], [place] [phone] documented as of this encounter Procedures Procedure Name Priority Date/Time Associated Diagnosis Comments COMPREHENSIVE METABOLIC PANEL Routine 04/15/2021 PAF (paroxysmal atrial fibrillation) (CMS/HCC) Atypical atrial flutter (CMS/HCC) documented in this encounter Results * Comprehensive Metabolic Panel (CMP) Expires 12 Months (04/15/2021) Blood Venous blood / Unknown us Neil Pedroza MD LAB BLOOD ORDERABLES Final Resu lt documented in this encounter Visit Diagnoses Diagnosis PAF (paroxysmal atrial fibrillation) (CMS/HCC) Atrial fibrillation Atypical atrial flutter (CMS/HCC) documented in this encounter Care Teams Trumpet Teacher Relationship Specialty Start Date End Date Rosio Puckett [facility] [address] [place], [place] [phone] PCP - General Family Medicine 07/02/24 documented as of this encounter
--- NOTE | 2025-03-02 12:57 | EKG_ITS ---
[place] [id number] [place] [id number] Test Date: 2025-03-02 Pat Name: Cecille Toledo Department: 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
--- NOTE | 2025-03-02 12:57 | DI.RAD.S_ITS ---
PROCEDURE: XR CHEST 1V INDICATIONS: Shortness of breath TECHNIQUE: One view of the chest was acquired. COMPARISON: [facility], , XR CHEST 1V, 08/10/2024, 11:48. FINDINGS: Surgical changes and devices: Postsurgical changes from prior right pneumonectomy. Surgical clips in the right axilla/upper chest. Lungs and pleura: Complete opacification of the right hemithorax with rightward mediastinal shift. This is stable. Hyperinflation of the left hemithorax, stable. No focal consolidation. No substantial pleural effusion. No pneumothorax. Mediastinum: Mediastinal contours appear stable. Heart size is normal. Bones and chest wall: No suspicious bony lesions. Overlying soft tissues appear unremarkable. IMPRESSION: Stable postsurgical changes of right pneumonectomy and complete opacification of the right hemithorax. Stable appearance of hyperinflation of the left hemithorax. No focal consolidation. No pneumothorax or pleural effusion. Dictated by: Matthew Earl M.D. on 03/02/2025 at 14:33 Approved by: Matthew Earl M.D. on 03/02/2025 at 14:35
[2025-03-02 13:55] LABS: Add Manual Diff / Slide Review NO; Hematocrit 39.2 % (36-46); Hemoglobin 12.9 g/dL (12.0-16.0); Lymphocytes Absolute Auto 500 /uL (1100-4500); Mean Corpuscular HGB Conc 33.0 % (30-36); Mean Corpuscular Hemoglobin 29.8 PG (26-34); Mean Corpuscular Volume 90.3 fL (80-100); Platelet Count 183 X10^3/uL (150-400)
[2025-03-02 13:57] LABS: INR 1.5 (0.9-1.3); Prothrombin Time 17.0 SECONDS (9.4-12.5)
[2025-03-02 14:02] LABS: Alanine Aminotransferase 19 IU/L (<35); Albumin 4.4 g/dL (3.5-5.0); Albumin Globulin Ratio 1.5 (1.0-2.8); Alkaline Phosphatase 67 U/L (38-126); Blood Urea Nitrogen 30 mg/dL (7-17); Calcium 9.4 mg/dL (8.4-10.2); Carbon Dioxide 36 mmol/L (22-32); Chloride 98 mmol/L (98-107); Estimated Glomerular Filt Rate > 60 mL/min (>60); Globulin 3.0 g/dL (1.7-4.1); Glucose 96 mg/dL (70-99); HEMOLYSIS < 15 (0-50); Lactate (Lactic Acid) 0.9 mmol/L (0.7-2.1); Potassium 3.8 mmol/L (3.4-5.1); Sodium 139 mmol/L (137-145); Total Protein 7.4 g/dL (6.3-8.2)
[2025-03-02 14:14] LABS: NT-proBNP (BNP-Adult 18+) 2110 pg/mL (<450); Troponin I < 0.012 ng/mL (0.01-0.034)
--- NOTE | 2025-03-02 15:20 | ED.SOB ---
HPI - SOB/Dyspnea General Chief Complaint: Shortness of Breath/Dyspnea Stated Complaint: SOB, since this morning Time Seen by Provider: 03/02/25 15:09 Source: patient Mode of arrival: Wheelchair Limitations: no limitations History of Present Illness HPI Narrative: 84-year-old female past medical history of atrial fibrillation on eliquis, right lung metastasis status post right lung resection, endometrial cancer, colon cancer, sleep apnea on 2 L nasal cannula at bedtime presents with sudden onset of shortness of breath dyspnea on exertion this morning along with nonproductive cough. Patient does wear compression stockings but does noticed that her legs are chronically swollen but not more so than usual. Patient denies fever, chills, back pain, abdominal pain, nausea, vomiting, diarrhea, sore throat. Other than what is stated 14 point review of system is negative Related Data Home Medications ?Medication ?Instructions ?Recorded ?Confirmed calcium 600 mg (as 2 tab PO DAILY 06/24/18 02/08/25 carbonate)-vitamin D3 5 mcg (200 unit) tablet (Calcium 600 + D(3)) multivitamin with minerals 1 tab PO DAILY 06/24/18 02/08/25 amlodipine 2.5 mg tablet 2.5 mg PO DAILY 05/25/21 02/08/25 amiodarone 200 mg tablet 200 mg PO DAILY 08/14/23 02/08/25 carvedilol 3.125 mg tablet 3.125 mg PO BID 08/14/23 02/08/25 potassium chloride 20 mEq 20 meq PO BEDTIME 08/14/23 02/08/25 tablet,extended release Previous Rx's ?Medication ?Instructions ?Recorded Disabled Parking #1 ea 07/03/22 albuterol sulfate 90 mcg/actuation 2 puff inhalation Q4-6H PRN 10/16/23 aerosol inhaler shortness of breath or wheezing #6.7 grams furosemide 40 mg tablet 40 mg PO QAM #90 tabs 03/30/24 Supplemental Oxygen #1 ea 06/17/24 ferrous sulfate 325 mg (65 mg 325 mg PO DAILY #30 tabs 07/31/24 iron) tablet apixaban 2.5 mg tablet (Eliquis) 2.5 mg PO BID #180 tabs 02/08/25 tiotropium bromide 18 mcg capsule 1 cap inhalation DAILY #3 ea 02/08/25 with inhalation device atorvastatin 20 mg tablet 10 mg (1/2 x 20 mg) PO BEDTIME #45 02/12/25 tabs lidocaine 5 % topical patch 1 patch topical DAILY #30 ea 02/22/25 Allergies Allergy/AdvReac Type Severity Reaction Status Date / Time No Known Drug Allergies Allergy Verified 02/24/25 14:01 Review of Systems Review of Systems ROS Unobtainable: All systems reviewed & are unremarkable except as noted in HPI and below Patient History Medical History (Updated 03/02/25 @ 19:50 by Ammon Marin, ) Periprosthetic fracture around internal prosthetic hip joint Closed fracture of inferior pubic ramus Fracture of superior pubic ramus Closed fracture of symphysis pubis Easy bruisability History of cardioversion Raynauds syndrome (12/14/10) Atrial fibrillation with RVR COPD (chronic obstructive pulmonary disease) Uterine cancer (1994) Ovarian cancer (1994) Osteoporosis (2015) Osteoarthritis Atrial fibrillation (2013) Hypertension Lung cancer (2006) Surgical History Anesthesia History of pneumonectomy (05/23/08) History of oophorectomy (1994) History of hip replacement (01/2013) History of breast augmentation (1992) History of bilateral salpingo-oophorectomy (BSO) Status post hysterectomy (1994) Family History Father Hypertension Prostate cancer Grandfather Stroke Grandmother Diabetes mellitus Mother Diabetes mellitus, type II Hypertension Stroke Grandfather No problems noted. Grandmother No problems noted. Social History marital status: unmarried,single household members: none lives independently: Yes pets and animals: Yes education level: college occupational status: other Smoking Status: Former smoker Tobacco: How many years used: 19 second hand exposure: No alcohol intake: current substance use type: does not use Smoking Status: Former smoker alcohol intake frequency: holidays/special occasions only Exam Narrative Exam Narrative: GENERAL: [84] year old patient appears stated age. Well-developed patient, in mild distress. HEAD: Atraumatic. Normocephalic. EYES: Pupils equal round and reactive. Extraocular motions intact. No scleral icterus. No injection or drainage. ENT: Nose without bleeding, purulent drainage. Throat without erythema, tonsillar hypertrophy or exudate. Airway patent. NECK: Trachea midline. Non tender CARDIOVASCULAR: Tachycardic irregularly irregular rhythm without murmurs, gallops, or rubs. RESPIRATORY: Clear to auscultation. Breath sounds equal bilaterally. No wheezes, rales, or rhonchi. GASTROINTESTINAL: Abdomen soft, non-tender, nondistended. EXTREMITIES: Trace edema b/l l/e BACK: Nontender without deformity or crepitance. No flank tenderness. NEURO: AOx3. SKIN: No rash or erythema of visible areas Initial Vital Signs Initial Vital Signs: Vital Signs Temperature 99.2 F 03/02/25 12:50 Pulse Rate 114 H 03/02/25 12:50 Respiratory Rate 22 03/02/25 12:50 Blood Pressure 101/72 03/02/25 12:50 Pulse Oximetry 94 03/02/25 12:50 Oxygen Delivery Method Nasal Cannula 03/02/25 12:50 Oxygen Flow Rate 2 03/02/25 12:50 Course Orders Ordered: ED Orders 03/02/25 12:57 XR chest 1V Stat EKG-12 Lead Stat Measure peak expiratory flow STAT RT Consult Eval and Treat STAT 03/02/25 13:35 Complete Blood Count AUTO DIFF Stat Comprehensive Metabolic Panel Stat Lactate (Lactic Acid) Stat NT-proBNP (BNP-Adult 18+) Stat Prothrombin Time INR Stat Troponin I Stat 03/02/25 15:32 Troponin I Stat Discontinued Medications Diltiazem HCl (Diltiazem 25 Mg/5 Ml Sdv) 10 mg IV NOW ONE Stop: 03/02/25 15:34 Last Admin: 03/02/25 15:40 Dose: 10 mg Documented By: DEMETRIA Diltiazem HCl (Diltiazem 25 Mg/5 Ml Sdv) 10 mg IV NOW ONE Stop: 03/02/25 18:01 Last Admin: 03/02/25 18:30 Dose: 10 mg Documented By: DEMETRIA Furosemide (Furosemide 40 Mg/4 Ml Vial) 40 mg IV NOW ONE Stop: 03/02/25 15:24 Last Admin: 03/02/25 15:40 Dose: 40 mg Documented By: DEMETRIA Vital Signs Vital signs: Vital Signs - 8 hr 03/02/25 12:50 03/02/25 13:17 03/02/25 13:29 Temperature 99.2 F Pulse Rate 114 H 115 H 113 H Respiratory Rate 22 34 H 31 H Blood Pressure 101/72 Pulse Oximetry 94 100 Oxygen Delivery Method Nasal Cannula Nasal Cannula Oxygen Flow Rate 2 2 03/02/25 13:29 03/02/25 13:30 03/02/25 13:30 Temperature Pulse Rate 110 H Respiratory Rate 33 H Blood Pressure 124/81 130/88 Pulse Oximetry 100 Oxygen Delivery Method Oxygen Flow Rate 03/02/25 14:00 03/02/25 14:18 03/02/25 14:18 Temperature Pulse Rate 116 H 115 H Respiratory Rate 40 H 33 H Blood Pressure 164/85 H Pulse Oximetry 98 96 Oxygen Delivery Method Nasal Cannula Oxygen Flow Rate 2 03/02/25 14:30 03/02/25 14:30 03/02/25 15:00 Temperature Pulse Rate 121 H 117 H Respiratory Rate 30 H 28 H Blood Pressure 159/87 H Pulse Oximetry 97 95 Oxygen Delivery Method Oxygen Flow Rate 03/02/25 15:00 03/02/25 15:40 03/02/25 18:30 Temperature Pulse Rate 124 H 117 H Respiratory Rate Blood Pressure 153/83 H 163/84 H 143/78 H Pulse Oximetry Oxygen Delivery Method Oxygen Flow Rate MDM - SOB/Dyspnea Lab Data 03/02/25 13:35 03/02/25 13:35 Labs: Lab Results 03/02/25 03/02/25 Range/Units 13:35 15:32 WBC 4.9 (4.5-11.0) X10^3/uL RBC 4.34 (4.0-5.2) X10^6/uL Hgb 12.9 (12.0-16.0) g/dL Hct 39.2 (36-46) % MCV 90.3 (80-100) fL MCH 29.8 (26-34) PG MCHC 33.0 (30-36) % RDW 14.2 (11.6-14.8) % Plt Count 183 (150-400) X10^3/uL Neut % (Auto) 74.7 (50-75) % Lymph % (Auto) 10.1 L (25-40) % [place] % (Auto) 13.8 (3-14) % Eos % (Auto) 0.7 L (2-4) % Baso % (Auto) 0.7 (0-2) % Neut # (Auto) 3600 (1116-3525) /uL Lymph # (Auto) 500 L (9112-3883) /uL [place] # (Auto) 700 (0-900) /uL Eos # (Auto) 0 (0-450) /uL Baso # (Auto) 0 (0-100) /uL PT 17.0 H (9.4-12.5) SECONDS INR 1.5 H (0.9-1.3) Sodium 139 (137-145) mmol/L Potassium 3.8 (3.4-5.1) mmol/L Chloride 98 (98-107) mmol/L Carbon Dioxide 36 H (22-32) mmol/L BUN 30 H (7-17) mg/dL Creatinine 0.60 (0.52-1.04) mg/dL Estimated GFR > 60 (>60) mL/min BUN/Creatinine Ratio 50.0 H (6-22) Glucose 96 (70-99) mg/dL Lactate 0.9 (0.7-2.1) mmol/L Calcium 9.4 (8.4-10.2) mg/dL Total Bilirubin 0.7 (0.2-1.3) mg/dL AST 28 (14-36) IU/L ALT 19 (<35) IU/L Alkaline Phosphatase 67 (38-126) U/L Troponin I < 0.012 < 0.012 (0.01-0.034) ng/mL NT-Pro-B Natriuret Pep 2110 H (<450) pg/mL Total Protein 7.4 (6.3-8.2) g/dL Albumin 4.4 (3.5-5.0) g/dL Globulin 3.0 (1.7-4.1) g/dL Albumin/Globulin Ratio 1.5 (1.0-2.8) ECG Data Interpretation: Afib RVR HR 105 DC undetermined QRS [address]-t wave change Unchanged from 08/10/24 [facility] Narrative Medical decision making narrative: All labwork, vital signs, design leader note, medication list, previous ER visits and all imaging studies reviewed. Pt given lasix 40mg IV x1, diltiazem 10mg IV x 2 still afib hr 100-110 and requiring 02 2L NC. 2set trop negative. BNP 2110. Case d/w hospitalist for admission. Differential diagnosis sepsis, pneumonia, CHF, PE, pneumothorax, AFib, STEMI, NSTEMI. Discharge Plan Departure Patient Disposition: Admitted as Observation Clinical Impression: A-fib, CHF (congestive heart failure)
[2025-03-02] MEDS: FUROSEMIDE 40 MG/4 ML VIAL IV (15:40)
[2025-03-02 16:11] LABS: Troponin I < 0.012 ng/mL (0.01-0.034)
[2025-03-02] MEDS: ATORVASTATIN 20 MG TABLET 10 MG PO (22:13)
[2025-03-02] MEDS: APIXABAN 5 MG TABLET 2.5 MG PO (22:13)
[2025-03-02] MEDS: ALBUTEROL 2.5 MG/3 ML NEB (ADULT) INH (22:38)
[2025-03-03] VITALS (13 sets, daily range): BP systolic 91–119; BP diastolic 54–76; PULSE 96–128; RESP 16–28; TEMP 36.1–36.9; O2SAT 92–99
[2025-03-03 05:33] LABS: Add Manual Diff / Slide Review NO; Hematocrit 38.0 % (36-46); Hemoglobin 12.4 g/dL (12.0-16.0); Lymphocytes Absolute Auto 500 /uL (1100-4500); Mean Corpuscular HGB Conc 32.7 % (30-36); Mean Corpuscular Hemoglobin 29.5 PG (26-34); Mean Corpuscular Volume 90.1 fL (80-100); Platelet Count 169 X10^3/uL (150-400)
[2025-03-03 05:47] LABS: Blood Urea Nitrogen 27 mg/dL (7-17); Calcium 8.9 mg/dL (8.4-10.2); Carbon Dioxide 38 mmol/L (22-32); Chloride 96 mmol/L (98-107); Estimated Glomerular Filt Rate > 60 mL/min (>60); Glucose 100 mg/dL (70-99); HEMOLYSIS < 15 (0-50); Magnesium 1.9 mg/dL (1.6-2.3); Potassium 3.4 mmol/L (3.4-5.1); Sodium 138 mmol/L (137-145)
[2025-03-03] MEDS: ALBUTEROL 2.5 MG/3 ML NEB (ADULT) INH ×3 (07:20→15:32)
[2025-03-03] MEDS: IPRATROPIUM 0.5 MG/2.5 ML NEB INH ×4 (07:20→20:59)
--- NOTE | 2025-03-03 08:30 | P.HP_ITS ---
History of Present Illness History of Present Illness Date Patient Seen: 03/03/25 Chief complaint: SOB, since this morning Narrative: Pt is a 84yo woman with CHF, atrial fibrillation on chronic anticoagulation, COPD on home O2, hx of lung cancer s/p pneumonectomy, and HTN who presented with acute onset SOB and cough. The pt reports that yesterday morning she woke feeling significantly more SOB than usual. She denies any provoking events. She felt that she was gasping slightly. She also notes a cough and difficulty clearing phlegm. The pt denies any recent chest pain, palpitations. She does note that she has been wheezing more recently. She denies any abdominal pain, fevers, chills, congestion. She had otherwise been feeling well. In the ED, lab work was completed that showed negative troponin, minimally elevated BNP. CXR without significant changes. [facility] Medical History (Updated 03/02/25 @ 19:50 by Ammon Marin DO) Periprosthetic fracture around internal prosthetic hip joint Closed fracture of inferior pubic ramus Fracture of superior pubic ramus Closed fracture of symphysis pubis Easy bruisability History of cardioversion Raynauds syndrome (12/14/10) Atrial fibrillation with RVR COPD (chronic obstructive pulmonary disease) Uterine cancer (1994) Ovarian cancer (1994) Osteoporosis (2015) Osteoarthritis Atrial fibrillation (2013) Hypertension Lung cancer (2006) Surgical History Anesthesia History of pneumonectomy (05/23/08) History of oophorectomy (1994) History of hip replacement (01/2013) History of breast augmentation (1992) History of bilateral salpingo-oophorectomy (BSO) Status post hysterectomy (1994) Family History Father Hypertension Prostate cancer Grandfather Stroke Grandmother Diabetes mellitus Mother Diabetes mellitus, type II Hypertension Stroke Grandfather No problems noted. Grandmother No problems noted. Social History marital status: unmarried,single household members: none lives independently: Yes pets and animals: Yes education level: college occupational status: other Smoking Status: Former smoker Tobacco: How many years used: 19 second hand exposure: No alcohol intake: current substance use type: does not use Meds Home Medications and Allergies Home Medications ?Medication ?Instructions ?Recorded ?Confirmed ?Type calcium 600 mg (as 2 tab PO DAILY 06/24/1802/09 History carbonate)-vitamin D3 5 mcg (200 unit) tablet (Calcium 600 + D(3)) multivitamin with minerals 1 tab PO DAILY 06/24/18 History amlodipine 2.5 mg tablet 2.5 mg PO DAILY 05/25/21 History Disabled Parking #1 ea 07/03/22 03/02/25 Rx carvedilol 3.125 mg tablet 3.125 mg PO BID 08/14/23 History potassium chloride 20 mEq 20 meq PO BEDTIME 08/14/23 1 05/03/24 History tablet,extended release albuterol sulfate 90 mcg/actuation 2 puff inhalation Q 4-6H PRN 10/16/23 03/02/25 Rx aerosol inhaler shortness of breath or wheez ing #6.7 grams furosemide 40 mg tablet 40 mg PO QAM #90 tabs 03/02/25 Rx Supplemental Oxygen #1 ea 06/17/24 03/02/25 Rx ferrous sulfate 325 mg (65 mg 325 mg PO DAILY #30 tabs 07/31/24 03/02/25 Rx iron) tablet apixaban 2.5 mg tablet (Eliquis) 2.5 mg PO BID #180 ta bs 02/08/25 03/02/25 Rx tiotropium bromide 18 mcg capsule 1 cap inhalation DESTINY LY #3 ea 02/08/25 03/02/25 Rx with inhalation device atorvastatin 20 mg tablet 10 mg (1/2 x 20 mg) PO BEDTI ME #45 02/12/25 03/02/25 Rx tabs lidocaine 5 % topical patch 1 patch topical DAILY #30 ea 02/22/25 03/02/25 Rx Allergies Allergy/AdvReac Type Severity Reaction Status Date / Time No Known Drug Allergies Allergy Verified 02/24/25 14:01 Exam Vital Signs (past 8 hours): - 03/03/25 03:00 03/03/25 07:24 Temperature 98.3 F Pulse Rate 105 H 128 H Respiratory Rate 20 28 H Blood Pressure 114/64 Pulse Oximetry 94 97 Oxygen Delivery Method Nasal Cannula Oxygen Flow Rate 3 3 Fraction of Inspired Oxygen 32 Fraction of Inspired Oxygen 32 SaO2/FiO2 Ratio 290 Oxygen Delivery Method Nasal Cannula Oxygen Flow Rate 3 Narrative Exam Narrative: Gen: NAD, sitting comfortably in chair, nebulizer in place, speaking in complete sentences HEENT: normocephalic, atraumatic, sclera clear Neck: no JVD, no LAD CV: irregularly irregular rhythm, tachycardic Resp: left side with significant wheezing, crackles throughout Abd: soft, nontender, nondistended Ext: no edema Neuro: no gross deficits Objective Labs 03/03/25 05:20 03/03/25 05:20 Labs: Laboratory Results - last 24 hr 03/02/25 03/02/25 03/03/25 13:35 15:32 05:20 WBC 4.9 4.3 L RBC 4.34 4.22 Hgb 12.9 12.4 Hct 39.2 38.0 MCV 90.3 90.1 MCH 29.8 29.5 MCHC 33.0 32.7 RDW 14.2 14.3 Plt Count 183 169 Neut % (Auto) 74.7 71.5 Lymph % (Auto) 10.1 L 11.1 L [place] % (Auto) 13.8 15.9 H Eos % (Auto) 0.7 L 0.5 L Baso % (Auto) 0.7 1.0 Neut # (Auto) 3600 3100 Lymph # (Auto) 500 L 500 L [place] # (Auto) 700 700 Eos # (Auto) 0 0 Baso # (Auto) 0 0 PT 17.0 H INR 1.5 H Sodium 139 138 Potassium 3.8 3.4 Chloride 98 96 L Carbon Dioxide 36 H 38 H BUN 30 H 27 H Creatinine 0.60 0.64 Estimated GFR > 60 > 60 BUN/Creatinine Ratio 50.0 H 42.2 H Glucose 96 100 H Lactate 0.9 Calcium 9.4 8.9 Magnesium 1.9 Total Bilirubin 0.7 AST 28 ALT 19 Alkaline Phosphatase 67 Troponin I < 0.012 < 0.012 NT-Pro-B Natriuret Pep 2110 H Total Protein 7.4 Albumin 4.4 Globulin 3.0 Albumin/Globulin Ratio 1.5 Assessment & Plan Assessment & Plan narrative: Pt is a 84yo woman with CHF, atrial fibrillation on chronic anticoagulation, COPD on home O2, hx of lung cancer s/p pneumonectomy, and HTN who presented with SOB and cough. 1) Acute on chronic respiratory failure: Increased O2 requirement of 3L. CXR without any acute findings. BNP mildly elevated, but not significantly so from prior hospitalizations. Lung exam with significant wheezing and crackles present. Likely multifactorial from COPD as well as CHF. - Continue oxygen support as needed for O2 sat > 92% - Wean as tolerated 2) COPD exacebation: Significant wheezing on exam - Methyprednisolone 60mg IV BID - Continue breathing treatments 3) Acute on chronic CHF exacerbation: -1.9L thus far - Continue Furosemide 40mg IV daily 4) Atrial fibrillation with RVR: HR remains in the 110-120s. S/P Diltiazem x 2 in the ER. - Continue home Carvedilol, Eliquis - Continue Amiodarone - Metoprolol 2.5mg IV for HR consistently > 120 - Continue Apixaban 5) HTN: BPs stable Code: DNR DVT ppx: Lovenox FEN: Cardiac Dispo: Pending improvement in oxygen status. Pt does have home O2 in place already that she uses overnight, in the event that needs to d/c on oxygen. Time-Based Coding :: [TOTAL MINUTES] spent with patient and on the chart (including review of chart, obtaining history, exam, reviewing outside data, placing orders, documenting exam and treatment plan, and counseling patient) on [DATE]. [employer]EE Digital Data Analyst Document charge(s): Yes Charge Codes Initial inpatient/observation care: 10019
[2025-03-03] MEDS: CALCIUM CARBONATE 500 MG TAB PO (08:46)
[2025-03-03] MEDS: AMIODARONE 200 MG TABLET PO (08:46)
[2025-03-03] MEDS: CHOLECALCIFEROL (VITAMIN D3) 400 UNIT TABLET PO (08:46)
[2025-03-03] MEDS: FUROSEMIDE 40 MG/4 ML VIAL IV (08:46)
[2025-03-03] MEDS: MULTIVITAMIN 1 TABLET 1 TAB PO (08:46)
[2025-03-03] MEDS: APIXABAN 5 MG TABLET 2.5 MG PO ×2 (08:46→21:53)
[2025-03-03] MEDS: FERROUS SULFATE 325 MG TABLET PO (08:46)
[2025-03-03] MEDS: POTASSIUM CHLORIDE 20 MEQ TAB 40 MEQ PO (08:53)
--- NOTE | 2025-03-03 09:28 | DIET.CONS ---
Dietary Consultation Note Admission Date: 03/02/2025 19:49 Assessment: 84 y F admitted for SOB. Dietitian screened for MNA score. Met with pt at bedside, who confirms weight loss reporting difficulty consuming enough food. Looking for meal plans like factor for 1 meal per day, but too high in sodium. Has Orgain and Ensure+ at home. Ht: 147.32 cm Wt: 39.5 kg BMI: 18.1 UBW: 42-45 kg hx from 2017 up until these last 3 months, 43.091 kg on 02/08/25 (-8% weight loss in 1 month, severe) Last BM: 03/02/25 (03/02/25 21:27) MNA: 10 Adam Score: 20 Diet: 03/02/25 Breakfast Heart Healthy Diet Diet Modifications: Labs: RBC 4.22 X10^6/uL (4.0-5.2) 03/03/25 05:20 Hgb 12.4 g/dL (12.0-16.0) 03/03/25 05:20 Hct 38.0 % (36-46) 03/03/25 05:20 Creatinine 0.64 mg/dL (0.52-1.04) 03/03/25 05:20 Lactate 0.9 mmol/L (0.7-2.1) 03/02/25 13:35 NT-Pro-B Natriuret Pep 2110 pg/mL (<450) H 03/02/25 13:35 Nutrition Diagnosis: Severe acute protein calorie malnutrition related to decreased appetite as evidenced by BMI severely underweight for age (18.2) and 8% weight loss within 1 month (severe), Interventions: Ensure+ BID Discussed increasing calories and tips, provided increasing kcal handout with discussion of Ensure BID, adding honey/half and half in morning to yogurt, extra tbsp olive oil on meal, if using Orgain protein shake - adding calories in a overhead crane truck loader (fruit/nut butter/full fat yogurt/honey), healthy choice steamer WITH an Ensure+ for a <600 mg dinner sodium option as needed Discussed meals on wheels as meal option as well as needed EER: 1400 kcals (35 kcals/kg per BMI) 60 g protein (1.5 g/kg per PCM) Monitoring/Evaluations: PO intakes Electronically Signed by: Deana Duarte 03/03/25 09:28 Clinical Dietitian [address] [address]
[2025-03-03] MEDS: methylPREDNISolone succ 125 MG/2 ML VIAL 60 MG IV ×2 (11:54→23:54)
--- NOTE | 2025-03-03 14:36 | CM.DANOTE ---
Initial DCP Assessment Note. Review EMR and PT Interview. Met with patient at bedside to discuss discharge needs.PT is alert x 4 sitting up in chair. No acute distress. Independent. Lives alone. Only has 1 lung. Home oxygen 2 liters/min for the past 2 years. Son Robert, can transport patient home upon discharge. [facility] to [facility] Op[facility]. Payor:??[facility] PCP: Summary & Plan:?84 y/o female drove herslf to the ED c/o SOB. Admitted OBS. Dx. CHF and Atrial Fibrillation. Plan: IV Lasix and adjust medications for Heart Rate control. Discharge Planning/Care Management CM Discharge Assessment Start: 03/02/25 21:07 Freq: Status: Active Protocol: Document 03/03/25 14:30 (Rec: 03/03/25 14:36 SM [id number]) Discharge Planning Assessment Assigned Discharge Lindsay Taylor RN CM Cell Tower Climber Provider Insurance Medicare Advance Directives? Yes: poa Advance Directives Yes on File History Provided By Patient,Medical Record Prior Living House Arrangements Household Members none Type of Drives own vehicle transporation used prior to admit Independent with ADL Yes 's Is patient alert and Yes oriented? Comment Patient is very independent. Still drives. Caregiver for No Another [facility] Oxygen Therapy used prior to admission: Comment Open to HH. DME Already Rented / FWW / Walker,Cane,Oxygen Owned Comment Norm oxygen 2 Liters/min. Patient/Family Home with Home Health,OP PT Therapy Preference Comment TBD Barriers to No Discharge Comment [facility] reviewing for admission Saturday08.17.23 Discharge Plan Home Transportation own vehicle in the parking lot and friends will help Arrangement get her home, already established with [facility] Referrals Initiated Home Health Additional Comment Open with [facility] Review Status In Process Please Provide Date 03/03/25 Initial DC Assessment Was Performed Next Review Type Continued Stay Review
[2025-03-03] MEDS: METOPROLOL TARTRATE 5 MG/5 ML INJ 2.5 MG IV (16:52)
[2025-03-03] MEDS: ATORVASTATIN 20 MG TABLET 10 MG PO (21:52)
[2025-03-04] VITALS (12 sets, daily range): BP systolic 101–120; BP diastolic 61–78; PULSE 91–118; RESP 16–20; TEMP 36.2–36.8; O2SAT 91–99
[2025-03-04 07:19] LABS: Blood Urea Nitrogen 34 mg/dL (7-17); Calcium 9.4 mg/dL (8.4-10.2); Carbon Dioxide 35 mmol/L (22-32); Chloride 94 mmol/L (98-107); Estimated Glomerular Filt Rate > 60 mL/min (>60); Glucose 152 mg/dL (70-99); HEMOLYSIS < 15 (0-50); Potassium 4.5 mmol/L (3.4-5.1); Sodium 134 mmol/L (137-145)
[2025-03-04] MEDS: IPRATROPIUM 0.5 MG/2.5 ML NEB INH ×4 (07:36→19:17)
--- NOTE | 2025-03-04 08:06 | P.PN_ITS ---
Subjective Subjective Date Patient Seen: 03/04/25 Time Patient Seen: 08:15 Interval history: Patient seen and evaluated this morning. Sitting up in the chair eating breakfast. Does not have oxygen on. She says she generally uses it at night. She feels she has been using oxygen more lately. She also recently had a sleep study done which showed that she has sleep apnea. She said she may need a mask at night. Nonetheless he does feel like her breathing is a little bit better. She does live at home. She has some mild complaints of shortness of breath but otherwise doing well. Exam Vital Signs (past 8 hours): - 03/04/25 07:40 Pulse Rate 97 H Respiratory Rate 20 Pulse Oximetry 95 Oxygen Delivery Method Nasal Cannula Oxygen Flow Rate 1 Fraction of Inspired Oxygen 24 SaO2/FiO2 Ratio 375 Oxygen Delivery Method Nasal Cannula Oxygen Flow Rate 1 Narrative Exam Narrative: Gen.: Alert good historian HEENT: Pupils equal round and reactive or mucosa is moist neck is supple Cardio: S1-S2 irregular rate and rhythm with systolic murmur Respiratory: Right lung showed no breath sounds left lung shows good aeration mild increased work of breathing. Abdomen: Soft nontender no rebound or guarding no liver spleen enlargement no appreciable hernias Extremities: Full range of motion no appreciable weakness no cyanosis or edema. Neurologic: Grossly intact. Objective Labs 03/03/25 05:20 03/04/25 06:20 Labs: Laboratory Results - last 24 hr 03/04/25 06:20 Sodium 134 L Potassium 4.5 Chloride 94 L Carbon Dioxide 35 H BUN 34 H Creatinine 0.62 Estimated GFR > 60 BUN/Creatinine Ratio 54.8 H Glucose 152 H Calcium 9.4 PFSH Medical History (Updated 03/04/25 @ 08:22 by Jani Nelson MD) Periprosthetic fracture around internal prosthetic hip joint Closed fracture of inferior pubic ramus Fracture of superior pubic ramus Closed fracture of symphysis pubis Easy bruisability History of cardioversion Raynauds syndrome (12/14/10) Atrial fibrillation with RVR COPD (chronic obstructive pulmonary disease) Uterine cancer (1994) Ovarian cancer (1994) Osteoporosis (2015) Osteoarthritis Atrial fibrillation (2013) Hypertension Lung cancer (2006) Surgical History Anesthesia History of pneumonectomy (05/23/08) History of oophorectomy (1994) History of hip replacement (01/2013) History of breast augmentation (1992) History of bilateral salpingo-oophorectomy (BSO) Status post hysterectomy (1994) Family History Father Hypertension Prostate cancer Grandfather Stroke Grandmother Diabetes mellitus Mother Diabetes mellitus, type II Hypertension Stroke Grandfather No problems noted. Grandmother No problems noted. Social History marital status: unmarried,single household members: none lives independently: Yes pets and animals: Yes education level: college occupational status: other Smoking Status: Former smoker Tobacco: How many years used: 19 second hand exposure: No alcohol intake: current substance use type: does not use Assessment & Plan Assessment and plan (1) CHF (congestive heart failure): Qualifiers: Heart failure type: diastolic Heart failure chronicity: acute on chronic Qualified Code(s): I50.33 - Acute on chronic diastolic (congestive) heart failure Status: Acute (2) A-fib: Qualifiers: Atrial fibrillation type: longstanding persistent Qualified Code(s): I 48.11 - Longstanding persistent atrial fibrillation Status: Acute Plan Acute on chronic respiratory failure. Patient with combination of chronic lung disease with status history of pneumonectomy and also diastolic heart failure. Admitted to the hospital with increasing shortness of breath. She will continue to be on oxygen as needed to support O2 sats. It appears she has a mild chronic CO2 retainer so we will keep her sats between 88 and 92. She also has mildly elevated BNP. She is feeling improved today with the steroids and diuresis. COPD. Patient's wheezing appears to be improved yesterday it is limited. Will change from IV methylprednisolone oral prednisone at 60 mg a day and continue with breathing treatments. She will continue his oxygen as needed. Congestive heart failure diuresis with IV Lasix. We will go ahead and wean from IV Lasix to oral Lasix today. She will continue with her beta-kory and amiodarone her heart rhythm is consistent with AFib well controlled. She is on chronic anticoagulation and this is continued during her hospital stay. Has recently had an echocardiogram which was reviewed. Heart rate is not too significantly fast. Atrial fibrillation. Patient with chronic atrial fibrillation on beta-kory amiodarone. She is anticoagulated. Heart rate at times appeared to be fast on her echocardiogram. Baby contributing on occasion to heart failure and shortness of breath. Rate well controlled currently. Hypertension patient will be continued on her antihypertensive Hyperlipidemia patient will be continued on her statin. Sleep apnea newly diagnosed. We will continue workup as an outpatient. DVT prophylaxis on anticoagulation Disposition and plan discharge home tomorrow Time-Based Coding :: [TOTAL MINUTES] spent with patient and on the chart (including review of chart, obtaining history, exam, reviewing outside data, placing orders, documenting exam and treatment plan, and counseling patient) on [DATE]. PROFEE Photogrammetric Surveyor Document charge(s): Yes Charge Codes Subsequent inpatient/observation care: [id number]
[2025-03-04] MEDS: MULTIVITAMIN 1 TABLET 1 TAB PO (09:24)
[2025-03-04] MEDS: AMIODARONE 200 MG TABLET PO (09:24)
[2025-03-04] MEDS: FUROSEMIDE 40 MG TABLET PO (09:24)
[2025-03-04] MEDS: APIXABAN 5 MG TABLET 2.5 MG PO ×2 (09:24→22:09)
[2025-03-04] MEDS: CALCIUM CARBONATE 500 MG TAB PO (09:24)
[2025-03-04] MEDS: CHOLECALCIFEROL (VITAMIN D3) 400 UNIT TABLET PO (09:24)
[2025-03-04] MEDS: FERROUS SULFATE 325 MG TABLET PO (09:26)
[2025-03-04] MEDS: ALBUTEROL 2.5 MG/3 ML NEB (ADULT) INH ×3 (11:07→19:17)
[2025-03-04] MEDS: ATORVASTATIN 20 MG TABLET 10 MG PO (22:09)
[2025-03-04] MEDS: SODIUM CHLORIDE 0.9% FLUSH 10 ML IV (22:12)
[2025-03-05 03:00] VITALS: BP 129/80; PULSE 102; RESP 18; TEMP 36.1; O2SAT 98
[2025-03-05 05:41] LABS: Blood Urea Nitrogen 42 mg/dL (7-17); Calcium 9.5 mg/dL (8.4-10.2); Carbon Dioxide 37 mmol/L (22-32); Chloride 92 mmol/L (98-107); Estimated Glomerular Filt Rate > 60 mL/min (>60); Glucose 134 mg/dL (70-99); HEMOLYSIS < 15 (0-50); Potassium 4.6 mmol/L (3.4-5.1); Sodium 133 mmol/L (137-145)
[2025-03-05 07:00] VITALS: O2SAT 96
[2025-03-05 08:00] VITALS: BP 149/85; PULSE 98; RESP 19; TEMP 36.5; O2SAT 92
--- NOTE | 2025-03-05 09:10 | PM.DS.IH.1 ---
History of Present Illness History of Present Illness Date Patient Seen: 03/05/25 Chief complaint: SOB, since this morning Narrative: Pt is a 84yo woman with CHF, atrial fibrillation on chronic anticoagulation, COPD on home O2, hx of lung cancer s/p pneumonectomy, and HTN who presented with acute onset SOB and cough. The pt reports that yesterday morning she woke feeling significantly more SOB than usual. She denies any provoking events. She felt that she was gasping slightly. She also notes a cough and difficulty clearing phlegm. The pt denies any recent chest pain, palpitations. She does note that she has been wheezing more recently. She denies any abdominal pain, fevers, chills, congestion. She had otherwise been feeling well. In the ED, lab work was completed that showed negative troponin, minimally elevated BNP. CXR without significant changes. Discharge Providers Provider Date of admission: 03/03/25 12:35 Discharge Date: 03/05/25 Primary care physician: Rosio Puckett MD Consults: 03/02/25 21:06 Consult to Cardio/Pulmonary Rehabilitation Routine Comment: Physician Instructions: Evaluate and treat 03/03/25 09:01 Consult to Pharmacy Routine Comment: fall risk Discharge provider: Rosio Puckett MD Summary Hospital Course Discharge Diagnosis: Acute on chronic respiratory failure COPD exacerbation CHF exacerbation Atrial fibrillation with RVR HTN Hyperlipidemia Sleep apnea Hospital Course: The pt was admitted with atrial fibrillation with RVR, CHF and COPD exacerbations. She was treated with IV lasix and methylprednisolone. Her HR improved with IV Diltiazem and IV Metoprolol. Her respiratory status improved, and at the time of discharge she was off oxygen for prolonged periods of time and progressing back to her usual state. She will discharge home on her usual Lasix as well as a prednisone taper. Status at Discharge Cognitive/behavioral status at discharge: oriented Functional status at discharge: uses cane/walker Overall status at discharge: patient is progressing back to baseline Exam Vital Signs (past 8 hours): - 03/05/25 03:00 Temperature 97 F L Pulse Rate 102 H Respiratory Rate 18 Blood Pressure 129/80 Pulse Oximetry 98 Oxygen Flow Rate 2 Fraction of Inspired Oxygen 24 SaO2/FiO2 Ratio 375 Oxygen Delivery Method Oximask Oxygen Flow Rate 2 Narrative Exam Narrative: Gen: NAD, sitting comfortably in chair, nebulizer in place, speaking in complete sentences CV: irregularly irregular rhythm Resp: left side clear to auscultation Ext: no edema Neuro: no gross deficits Objective Labs 03/03/25 05:20 03/05/25 04:33 Labs: Laboratory Results - last 24 hr 03/05/25 04:33 Sodium 133 L Potassium 4.6 Chloride 92 L Carbon Dioxide 37 H BUN 42 H Creatinine 0.65 Estimated GFR > 60 BUN/Creatinine Ratio 64.6 H Glucose 134 H Calcium 9.5 PFSH Medical History (Updated 03/04/25 @ 08:22 by Jani Nelson MD) Periprosthetic fracture around internal prosthetic hip joint Closed fracture of inferior pubic ramus Fracture of superior pubic ramus Closed fracture of symphysis pubis Easy bruisability History of cardioversion Raynauds syndrome (12/14/10) Atrial fibrillation with RVR COPD (chronic obstructive pulmonary disease) Uterine cancer (1994) Ovarian cancer (1994) Osteoporosis (2015) Osteoarthritis Atrial fibrillation (2013) Hypertension Lung cancer (2006) Surgical History Anesthesia History of pneumonectomy (05/23/08) History of oophorectomy (1994) History of hip replacement (01/2013) History of breast augmentation (1992) History of bilateral salpingo-oophorectomy (BSO) Status post hysterectomy (1994) Family History Father Hypertension Prostate cancer Grandfather Stroke Grandmother Diabetes mellitus Mother Diabetes mellitus, type II Hypertension Stroke Grandfather No problems noted. Grandmother No problems noted. Social History marital status: unmarried,single household members: none lives independently: Yes pets and animals: Yes education level: college occupational status: other Smoking Status: Former smoker Tobacco: How many years used: 19 second hand exposure: No alcohol intake: current substance use type: does not use Discharge Plan Discharge Plan Patient Disposition: Home Discharge orders & Medications Prescriptions: New prednisone 20 mg tablet See Rx Instructions .ROUTE .COMPLEX Qty: 21 0RF Rx Instructions: Take 3 tabs daily x4 days, then 2 tabs daily x3 days, then 1 tab daily x 3 days then stop Continued Eliquis 2.5 mg tablet 2.5 mg PO BID Qty: 180 3RF (DME) Disabled Parking See Rx Instructions .ROUTE .MEDSUPPLY Qty: 1 0RF Rx Instructions: I find this patient to be medically disabled and qualified for Permanent Disabled Parking as indicated, and signed, on the Accompanying Disabled Parking Application for Individuals furosemide 40 mg tablet 40 mg PO QAM Qty: 90 3RF (DME) Supplemental Oxygen 2 L/min aerosol See Rx Instructions .Route .MEDSUPPLY Qty: 1 0RF Rx Instructions: As directed To keep O2 sats above 88% tiotropium bromide 18 mcg capsule, w/inhalation device 1 cap inhalation DAILY Qty: 3 3RF Rx Instructions: puncture 1 cap using device; one dose = 2 inhalations atorvastatin 20 mg tablet 10 mg PO BEDTIME Qty: 45 0RF calcium carbonate-vitamin D3 [Calcium 600 + D(3)] 600 mg(1,500mg) -200 unit Tablet 2 tab PO DAILY multivitamin with minerals Tablet 1 tab PO DAILY carvedilol 3.125 mg tablet 3.125 mg PO BID potassium chloride 20 mEq tablet extended release 20 meq PO BEDTIME ferrous sulfate 325 mg (65 mg iron) tablet 325 mg PO DAILY Qty: 30 0RF amlodipine 2.5 mg Tablet 2.5 mg PO DAILY albuterol sulfate 90 mcg/actuation HFA aerosol inhaler 2 puff inhalation Q4-6H PRN (Reason: shortness of breath or wheezing) Qty: 6.7 2RF lidocaine 5 % adhesive patch,medicated 1 patch topical DAILY Qty: 30 0RF Rx Instructions: leave on most painful area for up to 12 hrs Follow up/Referrals: Rosio Puckett MD [Primary Care Provider, Family Practice] - 2 Weeks Diet/Activity/Treatments Diet: Diet as Tolerated and Regular Visit Report/Discharge Packet Stand Alone Forms: [employer], Patient Portal/API, Stroke Signs & Symptoms, Influenza Vaccine Info, Notice of Privacy Practices, Inpatient vs Outpatient, Pneumococcal Vaccine Info, Pt. Rights & Responsibilities Discharge Data Primary Care Provider: Rosio Puckett PROFEE Charge Codes Discharge inpatient/observation: [id number]
--- NOTE | 2025-03-05 09:29 | CM.DPC ---
DCP Cont. Reviewed EMR and team rounds for pt's medical status and updates. Pt has been medically cleared for home d/c, her family will transport her. No further CM d/c needs at this time.
[2025-03-05 09:34] VITALS: PULSE 106; RESP 20; O2SAT 95
[2025-03-05] MEDS: IPRATROPIUM 0.5 MG/2.5 ML NEB INH (09:34)
[2025-03-05] MEDS: CALCIUM CARBONATE 500 MG TAB PO (10:26)
[2025-03-05] MEDS: FERROUS SULFATE 325 MG TABLET PO (10:27)
[2025-03-05] MEDS: AMIODARONE 200 MG TABLET PO (10:27)
[2025-03-05] MEDS: CHOLECALCIFEROL (VITAMIN D3) 400 UNIT TABLET PO (10:27)
[2025-03-05] MEDS: APIXABAN 5 MG TABLET 2.5 MG PO (10:27)
[2025-03-05 10:28] VITALS: BP 149/85; PULSE 106
[2025-03-05] MEDS: MULTIVITAMIN 1 TABLET 1 TAB PO (10:28)
[2025-03-05] MEDS: FUROSEMIDE 40 MG TABLET PO (10:28)
[2025-03-05] MEDS: SODIUM CHLORIDE 0.9% FLUSH 10 ML IV (10:42)
[2025-03-05 12:00] VITALS: RESP 20
--- NOTE | 2025-03-05 13:43 | PC.NURSE ---
Pt had uneventful morning. Denies discomfort. MD in to see; D/C orders received. Sl and tele D/C Home instructions given w/ understanding., Pt escorted by staff via W/C to waiting vehicle D/C in stable status.
== END 2025-03-05 13:35 | disposition home or self-care (01) | DRG 291 ==
LOC: ED 19:50 → AC 19:51
PROVIDERS: Emergency Medicine; Family Medicine; Pharmacist Pharmacist Clinician (PhC)/ Clinical Pharmacy Specialist; Admitting Provider Internal Medicine; Emergency Provider Family Medicine; PCP Family Medicine; Referring Provider Family Medicine; Visit Provider Family Medicine
DX: I11.0 Hypertensive heart disease with heart failure (principal); I50.33 Acute on chronic diastolic (congestive) heart failure; J96.21 Acute and chronic respiratory failure with hypoxia; J44.1 Chronic obstructive pulmonary disease with (acute) exacerbation; I48.11 Longstanding persistent atrial fibrillation; E78.5 Hyperlipidemia, unspecified; G47.30 Sleep apnea, unspecified; Z66 Do not resuscitate; Z99.81 Dependence on supplemental oxygen; Z79.01 Long term (current) use of anticoagulants; Z85.118 Personal history of other malignant neoplasm of bronchus and lung; Z87.891 Personal history of nicotine dependence; Z98.890 Other specified postprocedural states
CPT/HCPCS: 36415; 71045; 80048; 80053; 83605; 83735; 83880; 84484; 85025; 85610; 93005; 93010; 94640; 94760; 96374; 96375; 96376; 99284; 99285; G0378; J1938; J2919; J7613